=== PATIENT | male | born 1960 | race African-American/Black ===

== ENCOUNTER 2017-02-12 15:05 | Inpatient (IN) | payer OTHER ==
--- NOTE | 2017-02-12 16:55 | HP ---
CIWA Score - CIWA Score Nausea/Vomitin Muscle Tremors: 3 Anxiety: 3 Agitation: 3 Paroxysmal Sweats: 2 Orientation: 0-Oriented Tacttile Disturbances: 2-Mild Itch/Numbness/Burn Auditory Disturbances: 2-Mild Harshness/Frighten Visual Disturbances: 2-Mild Sensitivity Headache: 2-Mild CIWA-Ar Total Score: 22 Admission ROS BHS - HPI Chief Complaint: I NEED HELP TO STOP DRINKING ALCOHOL,COCAINE,WITHDRAWAL SYMPTOM,LAST DETOX 09/11 TO 05/14/16 SYNCOPE ALCOHOL RELATED BILATERAL GLAUCOMA BOTH EYES S/P RIGHT EYE CATARACT SURGERY ARTHRITIS AMBULATION WITH CANE SURGERY FOR FX OF CERVICAL SPINE AT [facility] IN 05/12? BPH LONGEST SOBRIETY 2 AND A HALF YEARS Allergies/Adverse Reactions: Allergies Allergy/AdvReac Type Severity Reaction Status Date / Time metoclopramide HCl Allergy Severe Swelling Verified 09/11/16 10:34 [From Reglan] Penicillins Allergy Severe Hives Verified 09/11/16 10:32 shellfish derived Allergy Severe Swelling Verified 09/11/16 10:32 History of Present Illness: THIS 56 YEARS OLD WITH ALCOHOL,COCAINE,MARIJUANA DEPENDENCE FOR DETOX MENTIONED Exam Limitations: No Limitations - Ebola screening Have you traveled outside of the country in the last 21 days: No Have you had contact with anyone from an Ebola affected area: No Do you have a fever: No - Review of Systems Constitutional: Chills, Loss of Appetite, Malaise, Night Sweats, Changes in sleep, Unintentional Wgt. Loss EENT: reports: Tearing, Nose Congestion, Other (GLAUCOMA BOTH EYES S/P SURGERY OF CATARACT RIGHT) Respiratory: reports: No Symptoms reported Cardiac: reports: Palpitations GI: reports: Nausea, Poor Appetite, Vomiting, Abdominal cramping : reports: No Symptoms Reported Musculoskeletal: reports: Back Pain, Muscle Pain, Neck Pain, Other (ARTRITIS AMBULATION WITH CANE) Integumentary: reports: Dryness Neuro: reports: Headache, Tremors Endocrine: reports: No Symptoms Reported Hematology: reports: No Symptoms Reported Psychiatric: reports: Judgement Intact, Mood/Affect Appropiate, Orientated x3, Depressed Patient History - Patient Medical History Hx Anemia: No Hx Asthma: No Hx Chronic Obstructive Pulmonary Disease (COPD): No Hx Cancer: No Hx Cardiac Disorders: No Hx Congestive Heart Failure: No Hx Hypertension: No Hx Hypercholesterolemia: No Hx Pacemaker: No HX Cerebrovascular Accident: No Hx Seizures: Yes (LAST 01/13) Hx Dementia: No Hx Diabetes: No Hx Gastrointestinal Disorders: Yes (PUD) Hx Liver Disease: No Hx Genitourinary Disorders: No Hx Sexually Transmitted Disorders: No Hx Renal Disease (ESRD): No Hx Thyroid Disease: No Hx Human Immunodeficiency Virus (HIV): No (LAST 2016 NEGATIVE) Hx Hepatitis C: No Hx Depression: Yes (INSOMNIA) Hx Suicide Attempt: No Hx Bipolar Disorder: No Hx Schizophrenia: No Other Medical History: NO SUICIDAL,NO HOMICIDAL - Patient Surgical History Past Surgical History: No Hx Neurologic Surgery: Yes (C-SPINE FUSION) Hx Cataract Extraction: No Hx Cardiac Surgery: No Hx Lung Surgery: No Hx Breast Surgery: No Hx Breast Biopsy: No Hx Abdominal Surgery: No Hx Appendectomy: No Hx Cholecystectomy: No Hx Genitourinary Surgery: No Hx Section: No Hx Orthopedic Surgery: Yes (Sx bilateral wrist and R ankle sx; ON THE NECK) Anesthesia Reaction: No - PPD History Documented Results: Negative w/proof Date: 09/14/16 Results: 0mm PPD to be Administered?: No - Smoking Cessation Smoking history: Current every day smoker Have you smoked in the past 12 months: Yes Aproximately how many cigarettes per day: 40 Cigars Per Day: 0 Hx Chewing Tobacco Use: No Initiated information on smoking cessation: Yes 'Breaking Loose' booklet given: 02/12/17 - Substance & Tx. History Hx Alcohol Use: Yes Hx Substance Use: Yes Substance Use Type: Alcohol, Cocaine, Marijuana Hx Substance Use Treatment: Yes (LAST 09/11/16 TO 09/13/16) - Substances Abused Alcohol Route: Oral Frequency: Daily Amount used: 1/5TH OF VODKA Age of first use: 14 Date of Last Use: 02/12/17 Cocaine Route: Inhalation Frequency: 1-3 times last 30 days Amount used: 20$ Age of first use: 23 Date of Last Use: 01/25/17 Marijuana/Hashish Route: Smoking Frequency: 3-6 times per week Amount used: 10$ Age of first use: 23 Date of Last Use: 02/01/17 Family Disease History - Family Disease History Family Disease History: Other: Father (alcohol,), Mother (alcohol), Brother (alcohol), Sister (alcohol) Admission Physical Exam BHS - Vital Signs Vital Signs: Vital Signs Temperature 98.2 F 02/12/17 17:10 Pulse Rate 90 02/12/17 17:10 Respiratory Rate 20 02/12/17 17:10 Blood Pressure 108/66 02/12/17 17:10 O2 Sat by Pulse Oximetry (%) - Physical General Appearance: Yes: Moderate Distress (GLAUCOMA BOTH EYES S/P CATARACT SURGERY RIGHT), Tremorous, Irritable, Sweating, Anxious HEENTM: Yes: Normocephalic, Pharynx Normal, Nasal Congestion, Other (S/P) Respiratory: Yes: No Respiratory Distress, Wheezing Neck: Yes: Supple, Trachea in good position, Other (SCAR IN POSTERIOR OF NECK S/ P SURGERY) Breast: Yes: Within Normal Limits Cardiology: Yes: Within Normal Limits, Regular Rhythm, Regular Rate, S1, S2 Abdominal: Yes: Within Normal Limits, Normal Bowel Sounds, Non Tender, Flat, Soft Genitourinary: Yes: Hesitency, Other (BPH) Back: Yes: Muscle Spasm Musculoskeletal: Yes: full range of Motion, Back pain, Muscle Pain Extremities: Yes: Normal Range of Motion, Tremors, Other (ARTHRITIS AMBULATION WITH CANE) 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: Yes: service porter II-XII NML intact, Fully Oriented, Alert, Motor Strength 5/5 Integumentary: Yes: Dry Lymphatic: Yes: Within Normal Limits - Diagnostic (1) Alcohol dependence with uncomplicated withdrawal Current Visit: No Status: Chronic (2) Arthritis Current Visit: No Status: Chronic (3) Cannabis dependence Current Visit: No Status: Chronic (4) Chronic low back pain Current Visit: No Status: Chronic Qualifiers: Back pain laterality: unspecified (5) Chronic neck pain Current Visit: No Status: Chronic (6) Cocaine dependence Current Visit: No Status: Chronic Qualifiers: Substance use status: uncomplicated Qualified Code(s): F14.20 - Cocaine dependence, uncomplicated (7) Gastroesophageal reflux disease Current Visit: No Status: Chronic (8) Glaucoma of both eyes Current Visit: No Status: Chronic Qualifiers: Glaucoma type: primary angle-closure Primary angle closure glaucoma type: chronic Glaucoma stage: mild stage Qualified Code(s): H40.2231 - Chronic angle-closure glaucoma, bilateral, mild stage (9) Nicotine dependence Current Visit: No Status: Chronic Qualifiers: Nicotine product type: cigarettes Substance use status: uncomplicated Qualified Code(s): F17.210 - Nicotine dependence, cigarettes, uncomplicated (10) Paranoid schizophrenia Current Visit: No Status: Chronic (11) Use of cane as ambulatory aid Current Visit: No Status: Chronic (12) arthritis of left knee Current Visit: No Status: Chronic (13) BPH (benign prostatic hypertrophy) Current Visit: Yes Status: Acute (14) Status post cataract surgery Current Visit: Yes Status: Acute Cleared for Admission BHS - Detox or Rehab [facility] Level of Care: Medically Managed Detox Regimen/Protocol: Librium BHS Breath Alcohol Content Breath Alcohol Content: 0.028 Vital Signs - Vital Signs Vital Signs Refused: No Temperature: 98.2 F Temperature Source: Oral Pulse Rate: 90 Respiratory Rate: 20 Blood Pressure: 108/66 BP Location: Left Arm - Height Height: 5 ft 8 in - Weight Weight: 164 lb Body Mass Index (BMI): 24.9 Urine Drug Screen - Test Device Lot Number: [id number] Expiration Date: 10/26/18 - Control Is Test Valid: Yes - Results Drug Screen Negative: No Urine Drug Screen Results: BZO-Benzodiazepines
[2017-02-12 17:14] VITALS: BMI 24.9
[2017-02-12] MEDS ORDERED: IBUPROFEN 400 MG TABLET (FP) PO PRN (17:55)
[2017-02-12] MEDS ORDERED: chlordiazePOXIDE HCL 25 MG CAPSULE PO PRN (17:55)
[2017-02-12] MEDS ORDERED: MENTHOL/PHENOL 1 EACH UD MM PRN (17:55)
[2017-02-12] MEDS ORDERED: MAGNESIUM CITRATE 300 ML BOTTLE PO PRN (17:55)
[2017-02-12] MEDS ORDERED: MAGNESIUM HYDROX 2400MG/30ML ORAL SUSPENSION 30 ML CUP PO PRN (17:55)
[2017-02-12] MEDS ORDERED: diphenhydrAMINE HCL 50 MG CAPSULE PO PRN (17:55)
[2017-02-12] MEDS ORDERED: guaiFENesin/D-METHORPHAN HB 10 ML UNIT-DOSE CUPS PO PRN (17:55)
[2017-02-12] MEDS ORDERED: P-EPHED 60MG/TRIPROLIDI 2.5MG TABLET PO PRN (17:55)
[2017-02-12] MEDS ORDERED: LOPERAMIDE HCL 2 MG CAPSULE PO PRN (17:55)
[2017-02-12] MEDS ORDERED: MAG HYDROX/AL HYDROX/SIMETH 30 ML UNIT-DOSE CUP PO PRN (17:55)
[2017-02-12] MEDS ORDERED: NICOTINE POLACRILEX 2 MG GUM BC PRN (17:55)
[2017-02-12] MEDS ORDERED: hydrOXYzine PAMOATE 50 MG CAPSULE (FP) PO PRN (17:55)
[2017-02-12] MEDS ORDERED: ALBUTEROL SO4 6.7 GM HFA INHALER IH PRN (18:07)
[2017-02-12] MEDS ORDERED: chlordiazePOXIDE HCL 25 MG CAPSULE PO ONE (18:15)
[2017-02-12] MEDS: NICOTINE 21 MG/24 HOURS TOPICAL PATCH TD SCH (19:32)
[2017-02-12] MEDS: diphenhydrAMINE HCL 25 MG CAPSULE (FP) PO PRN (19:42)
[2017-02-12] MEDS: THIAMINE HCL 100 MG TABLET (FP) PO SCH (22:37)
[2017-02-12] MEDS: chlordiazePOXIDE HCL 25 MG CAPSULE PO SCH (22:38)
[2017-02-12] MEDS: RANITIDINE HCL 150 MG TABLET (FP) PO SCH (22:38)
[2017-02-12] MEDS: TIMOLOL 0.5% OPHTHALMIC SOL 5 ML BOTTLE OU SCH (22:40)
[2017-02-12] MEDS: LATANOPROST 0.005% OPHTH SOLN 2.5ML BOTTLE OU SCH (22:40)
[2017-02-13] MEDS: chlordiazePOXIDE HCL 25 MG CAPSULE PO SCH ×4 (06:05→22:40)
--- NOTE | 2017-02-13 10:30 | PN ---
[facility] CIWA - CIWA Score Nausea/Vomitin-No Nausea/No Vomiting Muscle Tremors: 4-Moderate,w/Arms Extend Anxiety: 4-Mod. Anxious/Guarded Agitation: 4-Moderately Restless Paroxysmal Sweats: 3 Orientation: 0-Oriented Tacttile Disturbances: 1-Very Mild Itch/Numbness Auditory Disturbances: 0-None Visual Disturbances: 0-None Headache: 0-None Present CIWA-Ar Total Score: 16 BHS Progress Note (SOAP) Subjective: Anxiety,tremors,sweating,interrupted sleep,restless. Objective: 02/13/17 10:29 Vital Signs - 8 hr 02/13/17 02/13/17 02/13/17 03:30 06:30 09:59 Temperature 98.4 F 96 F L Pulse Rate 88 81 Respiratory 18 18 20 Rate Blood Pressure 131/88 104/66 Laboratory Last Values WBC Cancelled 02/13/17 07:40 Corrected WBC (auto) Cancelled 02/13/17 07:40 RBC Cancelled 02/13/17 07:40 Hgb Cancelled 02/13/17 07:40 Hct Cancelled 02/13/17 07:40 MCV Cancelled 02/13/17 07:40 MCHC Cancelled 02/13/17 07:40 RDW Cancelled 02/13/17 07:40 Plt Count Cancelled 02/13/17 07:40 MPV Cancelled 02/13/17 07:40 Differential Comment Cancelled 02/13/17 07:40 Platelet Estimate Cancelled 02/13/17 07:40 Platelet Comment Cancelled 02/13/17 07:40 Platelet Comment Cancelled 02/13/17 07:40 RBC Morphology Cancelled 02/13/17 07:40 Assessment: 02/13/17 10:29 Withdrawal sx. Plan: Continue detox
[2017-02-13 10:43] LABS: ALBUMIN 3.4 g/dl (3.4-5.0); ALK PHOS 104 U/L (45-117); ANION GAP 13 (8-16); BILIRUBIN,TOTAL 0.5 mg/dL (0.2-1.0); CALCIUM 8.6 mg/dL (8.5-10.1); CO2 28 mmol/L (21-32); CREATININE 0.9 mg/dL (0.7-1.3); GLUCOSE,RANDOM 99 mg/dL (74-106); SGPT/ALT 16 U/L (12-78); TOT PROT 6.8 g/dl (6.4-8.2)
[2017-02-13 10:46] LABS: SGOT/AST 24 U/L (15-37)
[2017-02-13] MEDS: TIMOLOL 0.5% OPHTHALMIC SOL 5 ML BOTTLE OU SCH ×2 (11:02→21:23)
[2017-02-13] MEDS: NICOTINE 21 MG/24 HOURS TOPICAL PATCH TD SCH (11:03)
[2017-02-13] MEDS: PRENATAL VITAMINS W/ FOLIC ACID TABLET (FP) PO SCH (11:03)
[2017-02-13] MEDS: RANITIDINE HCL 150 MG TABLET (FP) PO SCH ×2 (11:04→22:40)
[2017-02-13] MEDS: diphenhydrAMINE HCL 25 MG CAPSULE (FP) PO PRN (11:09)
[2017-02-13] MEDS: VITAMINS A AND D TOPICAL OINTMENT 60 GM TUBE TP SCH ×4 (14:44→22:41)
[2017-02-13] MEDS: POTASSIUM CHLORIDE TABS 20 MEQ TABLET.ER (FP) PO SCH ×2 (14:52→22:40)
--- NOTE | 2017-02-13 15:37 | CONSULT ---
[facility] Psychiatric Consult - Data Date of interview: 02/13/17 Admission source: [facility] Identifying data: Readmission to [facility] for this 56 y/o AA male seeking detox treatment for alcohol,cocaine,benzodiazepine and marijuane dependence.Patient is single,a father of two,homeless,disabled and supported on SSI benefits. Substance Abuse History: - Smoking Cessation. Smoking history: Current every day smoker. Have you smoked in the past 12 months: Yes. Aproximately how many cigarettes per day: 40. Cigars Per Day: 0. Hx Chewing Tobacco Use: No. Initiated information on smoking cessation: Yes. 'Breaking Loose' booklet given : 02/12/17. - Substance & Tx. History. Hx Alcohol Use: Yes. Hx Substance Use : Yes. Substance Use Type: Alcohol, Cocaine, Marijuana. Hx Substance Use Treatment: Yes (LAST 09/11/16 TO 09/13/16). - Substances Abused. Alcohol. Route: Oral. Frequency: Daily. Amount used: 1/5TH OF VODKA. Age of first use : 14. Date of Last Use: 02/12/17. Cocaine. Route: Inhalation. Frequency: 1-3 times last 30 days. Amount used: 20$. Age of first use: 23. Date of Last Use: 01/25/17. Marijuana/Hashish. Route: Smoking. Frequency: 3-6 times per week. Amount used: 10$. Age of first use: 23. Date of Last Use: . Confirmed by the patient. Medical History: Constellation of medical issues : glaucoma,cataracts (bilateral ),withdrawal seizures,peptic ulcer disease,tumor of left wrist,cervical fusion ( consequence of injuries sustained in a fall while riding an escalator),BPH ( benign prostatic hyperplasia),past history of orthosurgery for fracture of right ankle (hardware in situ) and surgery for laceration of right wrist (glass) . Psychiatric History: History of psychiatric hospitalizations at various facilities.Known to [facility].Diagnosed with MDD ( self-report).Patient states that he used to be on zoloft and haldol." I don't want to take these things again.All I want is my trazodone and benadryl at night." Mr Mcrae informs that he does not have an OPD provider." I used to go to a place to see a psychiatrist but it is so long ago that I don't remember much about anything." With the exception of trazodone,the patient declines to consider any other psychotropic medications.No reported history of suicide attempts. Physical/Sexual Abuse/Trauma History: Patient denies. Additional Comment: Urine Drug Screen Results: BZO-Benzodiazepines.Noted. Mental Status Exam - Mental Status Exam Alert and Oriented to: Time, Place, Person Cognitive Function: Grossly Intact Patient Appearance: Unkempt (appearing older than his stated age), Disheveled Mood: Nervous, Apprehensive Affect: Blunted Patient Behavior: Fatigued, Cooperative Speech Pattern: Clear Voice Loudness: Normal Thought Process: Goal Oriented Thought Disorder: Not Present Hallucinations: Denies Suicidal Ideation: Denies Homicidal Ideation: Denies Insight/Judgement: Poor Sleep: Poorly, Difficulty falling asleep Appetite: Good Muscle strength/Tone: Normal Gait/Station: Other (unsteady,slow gait due to orthopedic issues) Psychiatric Findings - Problem List ([place] 1, 2,3) (1) Alcohol dependence with uncomplicated withdrawal Current Visit: Yes Status: Acute (2) Cannabis dependence Current Visit: Yes Status: Acute (3) Cocaine dependence Current Visit: Yes Status: Acute Qualifiers: Substance use status: uncomplicated Qualified Code(s): F14.20 - Cocaine dependence, uncomplicated (4) Nicotine dependence Current Visit: Yes Status: Acute Qualifiers: Nicotine product type: cigarettes Substance use status: uncomplicated Qualified Code(s): F17.210 - Nicotine dependence, cigarettes, uncomplicated (5) Drug-induced mood disorder Current Visit: Yes Status: Acute (6) Schizophrenia, undifferentiated Current Visit: Yes Status: Chronic Comment: Historical but the patient contests this diagnosis. (7) BPH (benign prostatic hypertrophy) Current Visit: Yes Status: Chronic (8) Arthritis Current Visit: Yes Status: Chronic (9) Chronic low back pain Current Visit: Yes Status: Chronic Qualifiers: Back pain laterality: unspecified (10) Chronic neck pain Current Visit: Yes Status: Chronic (11) Gastroesophageal reflux disease Current Visit: Yes Status: Chronic (12) Glaucoma of both eyes Current Visit: Yes Status: Chronic Qualifiers: Glaucoma type: primary angle-closure Primary angle closure glaucoma type: chronic Glaucoma stage: mild stage Qualified Code(s): H40.2231 - Chronic angle-closure glaucoma, bilateral, mild stage (13) arthritis of left knee Current Visit: Yes Status: Chronic (14) Insomnia Current Visit: Yes Status: Chronic Qualifiers: Insomnia type: unspecified Qualified Code(s): G47.00 - Insomnia, unspecified (15) Use of cane as ambulatory aid Current Visit: Yes Status: Chronic - Initial Treatment Plan Initial Treatment Plan: Psychoeducation.Detoxification in progress.Trazodone 100 mg po hs.Patient is made aware of the risk of priapism.Instructed to stop that medication/seek immediate medical assistance if erectile abnormalities ( prolonged/painful erection).He is advised against his decision to abstain from antipsychotic medications.Offered alternate drugs such as atypical agents/mood stabilizers.He refuses.Informed of potential risks of non-adherence/sub-optimal treatment which includes relapses,rehospitalizations,social/functional downdrift and increased morbidity.Observation.
[2017-02-13 16:56] LABS: URINE APPEARANCE CLEAR; URINE BILIRUBIN NEGATIVE (NEGATIVE); URINE BLOOD NEGATIVE (NEGATIVE); URINE COLOR YELLOW; URINE GLUCOSE (UA) NEGATIVE (NEGATIVE); URINE KETONE NEGATIVE (NEGATIVE); URINE NITRITE NEGATIVE (NEGATIVE); URINE PROTEIN NEGATIVE (NEGATIVE); URINE UROBILINOGEN 2.0 E.U/dl E.U./dl (0.2-1.0)
[2017-02-13 16:57] LABS: URINE LEUK ESTERASE TRACE (NEGATIVE)
[2017-02-13 16:58] LABS: URINE RBC 1 /hpf (0-3); URINE WBC 10 /hpf (3-5)
--- NOTE | 2017-02-13 17:51 | PN ---
BHS Progress Note Note: received nurse informed bp 94/60 hold librium 50 mg x 1 increase oral fluid continue detox
[2017-02-13] MEDS: LATANOPROST 0.005% OPHTH SOLN 2.5ML BOTTLE OU SCH (22:40)
[2017-02-13] MEDS: THIAMINE HCL 100 MG TABLET (FP) PO SCH (22:40)
[2017-02-13] MEDS: traZODone HCL 100 MG TABLET (FP) PO SCH (22:40)
[2017-02-14] MEDS: chlordiazePOXIDE HCL 25 MG CAPSULE PO SCH ×3 (05:51→17:46)
[2017-02-14] MEDS: ACETAMINOPHEN 325 MG TABLET (FP) PO PRN (05:53)
[2017-02-14] MEDS: diphenhydrAMINE HCL 25 MG CAPSULE (FP) PO PRN ×2 (07:40→17:47)
[2017-02-14] MEDS: NICOTINE 21 MG/24 HOURS TOPICAL PATCH TD SCH (10:39)
[2017-02-14] MEDS: TIMOLOL 0.5% OPHTHALMIC SOL 5 ML BOTTLE OU SCH ×2 (10:39→22:55)
[2017-02-14] MEDS: PRENATAL VITAMINS W/ FOLIC ACID TABLET (FP) PO SCH (10:39)
[2017-02-14] MEDS: VITAMINS A AND D TOPICAL OINTMENT 60 GM TUBE TP SCH ×4 (10:39→22:54)
[2017-02-14] MEDS: RANITIDINE HCL 150 MG TABLET (FP) PO SCH ×2 (10:39→22:55)
[2017-02-14] MEDS: POTASSIUM CHLORIDE TABS 20 MEQ TABLET.ER (FP) PO SCH ×2 (10:39→22:55)
--- NOTE | 2017-02-14 11:36 | PN ---
[facility] CIWA - CIWA Score Nausea/Vomitin-No Nausea/No Vomiting Muscle Tremors: 4-Moderate,w/Arms Extend Anxiety: 4-Mod. Anxious/Guarded Agitation: 4-Moderately Restless Paroxysmal Sweats: 1-Minimal Palms Moist Orientation: 0-Oriented Tacttile Disturbances: 3-Moderate Itch/Numb/Burn Auditory Disturbances: 0-None Visual Disturbances: 0-None Headache: 0-None Present CIWA-Ar Total Score: 16 BHS Progress Note (SOAP) Subjective: ANXIETY,SWEATS,FATIGUE. Objective: 02/14/17 11:34 Vital Signs Temperature 95.6 F L 02/14/17 10:10 Pulse Rate 78 02/14/17 10:10 Respiratory Rate 18 02/14/17 10:10 Blood Pressure 110/74 02/14/17 10:10 O2 Sat by Pulse Oximetry (%) Laboratory Last Values WBC Cancelled 02/13/17 07:40 Corrected WBC (auto) Cancelled 02/13/17 07:40 RBC Cancelled 02/13/17 07:40 Hgb Cancelled 02/13/17 07:40 Hct Cancelled 02/13/17 07:40 MCV Cancelled 02/13/17 07:40 MCHC Cancelled 02/13/17 07:40 RDW Cancelled 02/13/17 07:40 Plt Count Cancelled 02/13/17 07:40 MPV Cancelled 02/13/17 07:40 Differential Comment Cancelled 02/13/17 07:40 Platelet Estimate Cancelled 02/13/17 07:40 Platelet Comment Cancelled 02/13/17 07:40 Platelet Comment Cancelled 02/13/17 07:40 RBC Morphology Cancelled 02/13/17 07:40 Sodium 139 mmol/L (136-145) 02/13/17 07:40 Potassium 3.3 mmol/L (3.5-5.1) L D 02/13/17 07:40 Chloride 98 mmol/L (98-107) 02/13/17 07:40 Carbon Dioxide 28 mmol/L (21-32) 02/13/17 07:40 Anion Gap 13 (8-16) 02/13/17 07:40 BUN 16 mg/dL (7-18) D 02/13/17 07:40 Creatinine 0.9 mg/dL (0.7-1.3) 02/13/17 07:40 Creat Clearance w eGFR > 60 (>60) 02/13/17 07:40 Random Glucose 99 mg/dL (74-106) 02/13/17 07:40 Calcium 8.6 mg/dL (8.5-10.1) 02/13/17 07:40 Total Bilirubin 0.5 mg/dL (0.2-1.0) 02/13/17 07:40 AST 24 U/L (15-37) 02/13/17 07:40 ALT 16 U/L (12-78) D 02/13/17 07:40 Alkaline Phosphatase 104 U/L (45-117) D 02/13/17 07:40 Total Protein 6.8 g/dl (6.4-8.2) 02/13/17 07:40 Albumin 3.4 g/dl (3.4-5.0) 02/13/17 07:40 Urine Color Yellow 02/13/17 16:30 Urine Appearance Clear 02/13/17 16:30 Urine pH 6.0 (5.0-8.0) 02/13/17 16:30 Ur Specific [place] 1.013 (1.001-1.035) 02/13/17 16:30 Urine Protein Negative (NEGATIVE) 02/13/17 16:30 Urine Glucose (UA) Negative (NEGATIVE) 02/13/17 16:30 Urine Ketones Negative (NEGATIVE) 02/13/17 16:30 Urine Blood Negative (NEGATIVE) 02/13/17 16:30 Urine Nitrite Negative (NEGATIVE) 02/13/17 16:30 Urine Bilirubin Negative (NEGATIVE) 02/13/17 16:30 Urine Urobilinogen 2.0 e.u/dl E.U./dl (0.2-1.0) 02/13/17 16:30 Ur Leukocyte Esterase Trace (NEGATIVE) H 02/13/17 16:30 Urine RBC 1 /hpf (0-3) 02/13/17 16:30 Urine WBC 10 /hpf (3-5) 02/13/17 16:30 Ur Epithelial Cells Rare /hpf (FEW) 02/13/17 16:30 RPR Titer Nonreactive (NONREACTIVE) 02/13/17 07:00 Assessment: 02/14/17 11:34 WITHDRAWAL SX Plan: CONTINUE DETOX REPEAT UA TODAY CONTINUE KDUR DIRECTED.
[2017-02-14 13:16] LABS: HIV 1 & 2 AB NEGATIVE; HIV 1 AGp24 NEGATIVE
--- NOTE | 2017-02-14 16:57 | EKG ---
Test Reason : Blood Pressure : / mmHG Vent. Rate : 076 BPM Atrial Rate : 076 BPM P-R Int : 128 ms QRS Dur : 098 ms QT Int : 406 ms P-R-T Axes : 013 040 069 degrees QTc Int : 456 ms NORMAL SINUS RHYTHM NONSPECIFIC T WAVE ABNORMALITY ABNORMAL ECG NO PREVIOUS ECGS AVAILABLE Confirmed by RAYSA CORNELL MD ([id number]) on 02/14/2017 4:57:09 PM Referred By: Confirmed By:RAYSA CORNELL MD
[2017-02-14] MEDS: NAPROXEN 500 MG TABLET (FP) PO PRN (22:53)
[2017-02-14] MEDS: THIAMINE HCL 100 MG TABLET (FP) PO SCH (22:54)
[2017-02-14] MEDS: chlordiazePOXIDE 5 MG CAPSULE PO SCH (22:55)
[2017-02-14] MEDS: traZODone HCL 100 MG TABLET (FP) PO SCH (22:55)
[2017-02-14] MEDS: LATANOPROST 0.005% OPHTH SOLN 2.5ML BOTTLE OU SCH (22:56)
[2017-02-15] MEDS: chlordiazePOXIDE 5 MG CAPSULE PO SCH ×3 (06:12→18:04)
[2017-02-15] MEDS ORDERED: ALBUTEROL SO4 2.5/IPRATROPIUM 0.5 INH SOL 3 ML VIAL.NEB. NEB PRN (09:28)
[2017-02-15 10:14] LABS: BASOPHIL 0.9 % (0-2.0); EOSINOPHIL 2.1 % (0-4.5); MCH 27.4 pg (25.7-33.7); MEAN CELL VOLUME 85.6 fl (80-96); NEUTROPHILS 62.3 % (42.8-82.8); PLATELET COUNT 175 K/MM3 (134-434); RDW 20.4 % (11.9-15.9); WHITE BLOOD COUNT 4.4 K/mm3 (4.0-10.0)
[2017-02-15] MEDS: RANITIDINE HCL 150 MG TABLET (FP) PO SCH ×2 (10:40→22:50)
[2017-02-15] MEDS: NICOTINE 21 MG/24 HOURS TOPICAL PATCH TD SCH (10:40)
[2017-02-15] MEDS: ALBUTEROL SO4 2.5/IPRATROPIUM 0.5 INH SOL 3 ML VIAL.NEB. NEB SCH ×4 (10:40→23:52)
[2017-02-15] MEDS: BUDESONIDE/FORMETEROL FUMARATE 80/4.5 mcg INHALER IH SCH ×2 (10:40→22:48)
[2017-02-15] MEDS: POTASSIUM CHLORIDE TABS 20 MEQ TABLET.ER (FP) PO SCH ×2 (10:40→22:49)
[2017-02-15] MEDS: PRENATAL VITAMINS W/ FOLIC ACID TABLET (FP) PO SCH (10:40)
[2017-02-15] MEDS: TIMOLOL 0.5% OPHTHALMIC SOL 5 ML BOTTLE OU SCH ×2 (10:41→18:00)
[2017-02-15] MEDS: VITAMINS A AND D TOPICAL OINTMENT 60 GM TUBE TP SCH ×4 (10:41→22:49)
[2017-02-15] MEDS: diphenhydrAMINE HCL 25 MG CAPSULE (FP) PO PRN ×2 (10:42→18:14)
--- NOTE | 2017-02-15 11:08 | PN ---
S Progress Note (SOAP) Subjective: ANXIETY,IRRITABILITY,CHILLS, SOB,WHEEZE, COUGHING --MOIST/HEAVY SOUNDING AND NASAL CONGESTION. DENIES HX ASTHMA OR COPD. Objective: 02/15/17 11:05 Vital Signs 02/15/17 02/15/17 02/15/17 03:30 06:37 10:25 Temperature 96.5 F L 96.6 F L Pulse Rate 75 76 Respiratory 18 16 18 Rate Blood Pressure 100/61 107/73 Laboratory Last Values WBC 4.4 K/mm3 (4.0-10.0) 02/15/17 07:14 Corrected WBC (auto) Cancelled 02/13/17 07:40 RBC 3.82 M/mm3 (4.00-5.60) L 02/15/17 07:14 Hgb 10.5 GM/dL (11.7-16.9) L D 02/15/17 07:14 Hct 32.7 % (35.4-49) L 02/15/17 07:14 MCV 85.6 fl (80-96) 02/15/17 07:14 MCHC 32.0 g/dl (32.0-35.9) 02/15/17 07:14 RDW 20.4 % (11.9-15.9) H 02/15/17 07:14 Plt Count 175 K/MM3 (134-434) 02/15/17 07:14 MPV 9.0 fl (7.5-11.1) 02/15/17 07:14 Neutrophils % 62.3 % (42.8-82.8) 02/15/17 07:14 Lymphocytes % 20.0 % (8-40) D 02/15/17 07:14 Monocytes % 14.7 % (3.8-10.2) H D 02/15/17 07:14 Eosinophils % 2.1 % (0-4.5) D 02/15/17 07:14 Basophils % 0.9 % (0-2.0) 02/15/17 07:14 Differential Comment Cancelled 02/13/17 07:40 Platelet Estimate Cancelled 02/13/17 07:40 Platelet Comment Cancelled 02/13/17 07:40 Platelet Comment Cancelled 02/13/17 07:40 RBC Morphology Cancelled 02/13/17 07:40 Sodium 139 mmol/L (136-145) 02/13/17 07:40 Potassium 3.3 mmol/L (3.5-5.1) L D 02/13/17 07:40 Chloride 98 mmol/L (98-107) 02/13/17 07:40 Carbon Dioxide 28 mmol/L (21-32) 02/13/17 07:40 Anion Gap 13 (8-16) 02/13/17 07:40 BUN 16 mg/dL (7-18) D 02/13/17 07:40 Creatinine 0.9 mg/dL (0.7-1.3) 02/13/17 07:40 Creat Clearance w eGFR > 60 (>60) 02/13/17 07:40 Random Glucose 99 mg/dL (74-106) 02/13/17 07:40 Calcium 8.6 mg/dL (8.5-10.1) 02/13/17 07:40 Total Bilirubin 0.5 mg/dL (0.2-1.0) 02/13/17 07:40 AST 24 U/L (15-37) 02/13/17 07:40 ALT 16 U/L (12-78) D 02/13/17 07:40 Alkaline Phosphatase 104 U/L (45-117) D 02/13/17 07:40 Total Protein 6.8 g/dl (6.4-8.2) 02/13/17 07:40 Albumin 3.4 g/dl (3.4-5.0) 02/13/17 07:40 Urine Color Yellow 02/13/17 16:30 Urine Appearance Clear 02/13/17 16:30 Urine pH 6.0 (5.0-8.0) 02/13/17 16:30 Ur Specific [place] 1.013 (1.001-1.035) 02/13/17 16:30 Urine Protein Negative (NEGATIVE) 02/13/17 16:30 Urine Glucose (UA) Negative (NEGATIVE) 02/13/17 16:30 Urine Ketones Negative (NEGATIVE) 02/13/17 16:30 Urine Blood Negative (NEGATIVE) 02/13/17 16:30 Urine Nitrite Negative (NEGATIVE) 02/13/17 16:30 Urine Bilirubin Negative (NEGATIVE) 02/13/17 16:30 Urine Urobilinogen 2.0 e.u/dl E.U./dl (0.2-1.0) 02/13/17 16:30 Ur Leukocyte Esterase Trace (NEGATIVE) H 02/13/17 16:30 Urine RBC 1 /hpf (0-3) 02/13/17 16:30 Urine WBC 10 /hpf (3-5) 02/13/17 16:30 Ur Epithelial Cells Rare /hpf (FEW) 02/13/17 16:30 RPR Titer Nonreactive (NONREACTIVE) 02/13/17 07:00 HIV 1&2 Antibody Screen Negative 02/14/17 07:10 HIV P24 Antigen Negative 02/14/17 07:10 REPEAT UA RESULT PENDING LUNGS:BILATERAL MODERATE RHONCHI WITH SLIGHT WHEEZE. Assessment: 02/15/17 11:06 WITHDRAWAL SX ACUTE BRONCHITIS Plan: CONTINUE DETOX RT WITH DUONEB NEBULIZER AND SYMBICORT DIRECTED. AZITHROMYCIN SWETHA
[2017-02-15] MEDS ORDERED: AZITHROMYCIN 1 GM PACKET PO ONE (12:00)
[2017-02-15] MEDS: SODIUM CHLORIDE NASAL SPRAY 44 ML BOTTLE NS SCH ×2 (13:39→22:51)
[2017-02-15 14:57] LABS: URINE APPEARANCE CLEAR; URINE BILIRUBIN NEGATIVE (NEGATIVE); URINE BLOOD NEGATIVE (NEGATIVE); URINE COLOR DKYELLOW; URINE GLUCOSE (UA) NEGATIVE (NEGATIVE); URINE KETONE NEGATIVE (NEGATIVE); URINE LEUK ESTERASE TRACE (NEGATIVE); URINE NITRITE NEGATIVE (NEGATIVE); URINE PROTEIN 1+ (NEGATIVE); URINE UROBILINOGEN 4.0 E.U/dl E.U./dl (0.2-1.0)
[2017-02-15 15:53] LABS: URINE MUCUS RARE; URINE RBC 1 /hpf (0-3); URINE WBC 9 /hpf (3-5); WAXY CAST 1 /lpf
[2017-02-15] MEDS: NAPROXEN 500 MG TABLET (FP) PO PRN (18:06)
[2017-02-15] MEDS: ACETAMINOPHEN 325 MG TABLET (FP) PO PRN (22:47)
[2017-02-15] MEDS: chlordiazePOXIDE HCL 10 MG CAPSULE PO SCH (22:49)
[2017-02-15] MEDS: LATANOPROST 0.005% OPHTH SOLN 2.5ML BOTTLE OU SCH (22:50)
[2017-02-15] MEDS: THIAMINE HCL 100 MG TABLET (FP) PO SCH (22:50)
[2017-02-15] MEDS: traZODone HCL 100 MG TABLET (FP) PO SCH (22:53)
[2017-02-16] MEDS: chlordiazePOXIDE HCL 10 MG CAPSULE PO SCH ×2 (06:22→10:48)
[2017-02-16] MEDS: NAPROXEN 500 MG TABLET (FP) PO PRN (06:23)
[2017-02-16] MEDS: diphenhydrAMINE HCL 25 MG CAPSULE (FP) PO PRN (06:24)
[2017-02-16 09:23] VITALS: BP 117/76; PULSE 69; TEMP 96.4
[2017-02-16] MEDS: POTASSIUM CHLORIDE TABS 20 MEQ TABLET.ER (FP) PO SCH (10:48)
[2017-02-16] MEDS: NICOTINE 21 MG/24 HOURS TOPICAL PATCH TD SCH (10:48)
[2017-02-16] MEDS: SODIUM CHLORIDE NASAL SPRAY 44 ML BOTTLE NS SCH (10:48)
[2017-02-16] MEDS: BUDESONIDE/FORMETEROL FUMARATE 80/4.5 mcg INHALER IH SCH (10:48)
[2017-02-16] MEDS: ALBUTEROL SO4 2.5/IPRATROPIUM 0.5 INH SOL 3 ML VIAL.NEB. NEB SCH (10:48)
[2017-02-16] MEDS: PRENATAL VITAMINS W/ FOLIC ACID TABLET (FP) PO SCH (10:48)
[2017-02-16] MEDS: RANITIDINE HCL 150 MG TABLET (FP) PO SCH (10:49)
[2017-02-16] MEDS: VITAMINS A AND D TOPICAL OINTMENT 60 GM TUBE TP SCH (10:49)
[2017-02-16] MEDS: TIMOLOL 0.5% OPHTHALMIC SOL 5 ML BOTTLE OU SCH (10:49)
--- NOTE | 2017-02-16 11:32 | DS ---
[facility] Detox Discharge Summary Admission Date: 02/12/17 Discharge Date: 02/16/17 - History Present History: Alcohol Dependence Additional Comments: DETOX COMPLETED.ALERT O X 3. NAD. LUNGS;CLEAR TO A/P. NO SOB. NO C/O PAIN. VSS PT INSTRUCTED TO F/U WITH [facility] AT [place], [place] FOR MEDICAL MANAGEMENT. PT STATES HE IS HOMELESS AND NO FIXED RESIDENCE("I'M ALL OVER THE PLACE"). Pertinent Past History: ANEMIA BRONCHITIS CHRONIC GLAUCOMA BOTH EYES CATARACT SX GERD ARTHRITIS USE OF CANE BPH SCHIZOPHRENIA - Physical Exam Results Vital Signs: Vital Signs Temperature 96.4 F L 02/16/17 09:23 Pulse Rate 69 02/16/17 09:23 Respiratory Rate 18 02/16/17 09:23 Blood Pressure 117/76 02/16/17 09:23 O2 Sat by Pulse Oximetry (%) Pertinent Admission Physical Exam Findings: WITHDRAWAL SX - Treatment Hospital Course: Detox Protocol Followed, Detoxed Safely, Responded well, Discharged Condition Good - Medication Discharge Medications: Ambulatory Orders Haloperidol [Haldol -] 5 mg PO BID PRN #60 tablet 02/22/16 Trazodone HCl [Desyrel -] 100 mg PO HS #30 tablet 02/22/16 Brimonidine Tartrate [Alphagan 0.2% -] 1 drop OU BID #1 drops 02/24/16 Latanoprost 0.005% Eye Drops [Xalatan 0.005% Eye Drops -] 1 drop OU HS #1 drops 02/24/16 Naproxen [Naprosyn -] 500 mg PO BID #60 tablet 02/24/16 Sodium Chloride Nasal Bridger [[place] Bridger Nasal Bridger -] 2 spray NS TID PRN #1 bottle 02/24/16 Timolol 0.5% [Timoptic 0.5%] 1 drop OU BID #1 drops 02/24/16 Haloperidol [Haldol -] 5 mg PO BID PRN #60 tablet 09/12/16 Trazodone HCl [Desyrel -] 100 mg PO HS #30 tablet 09/12/16 Trazodone HCl 100 mg PO HS #30 tablet 02/13/17 Azithromycin [Zithromax 1gm Jordin -] 250 mg PO DAILY #4 packet 02/16/17 Ferrous Sulfate [Feosol] 325 mg PO TIDCM #90 ud 02/16/17 Ranitidine [Zantac -] 150 mg PO BID #60 tablet 02/16/17 - Diagnosis (1) Alcohol dependence with uncomplicated withdrawal Status: Acute (2) Drug-induced mood disorder Status: Acute (3) Nicotine dependence Status: Acute Qualifiers: Nicotine product type: cigarettes Substance use status: in withdrawal Qualified Code(s): F17.213 - Nicotine dependence, cigarettes, with withdrawal (4) Status post cataract surgery Status: Chronic (5) Arthritis Status: Chronic (6) BPH (benign prostatic hypertrophy) Status: Chronic (7) Gastroesophageal reflux disease Status: Chronic (8) Glaucoma of both eyes Status: Chronic Qualifiers: Glaucoma type: primary angle-closure Primary angle closure glaucoma type: chronic Glaucoma stage: mild stage Qualified Code(s): H40.2231 - Chronic angle-closure glaucoma, bilateral, mild stage (9) Use of cane as ambulatory aid Status: Chronic (10) arthritis of left knee Status: Chronic (11) Cannabis dependence Status: Acute (12) Cocaine dependence Status: Acute Qualifiers: Substance use status: uncomplicated Qualified Code(s): F14.20 - Cocaine dependence, uncomplicated (13) Chronic low back pain Status: Chronic Qualifiers: Back pain laterality: unspecified (14) Schizophrenia, undifferentiated Status: Chronic (15) Bronchitis Status: Acute - AMA Did Patient Leave Against Medical Advice: No
== END 2017-02-16 10:50 | disposition home or self-care (01) | DRG 774 ==
LOC: YASAS 15:05 → Y3N 17:36
PROVIDERS: ADMIT Internal Medicine Addiction Medicine; ATTEND Internal Medicine Addiction Medicine
PROC: HZ2ZZZZ Detoxification Services for Substance Abuse Treatment (ICD-10-PCS; principal; 2017-02-12)
DX: F10.230 Alcohol dependence with withdrawal, uncomplicated (principal); F14.20 Cocaine dependence, uncomplicated; F12.20 Cannabis dependence, uncomplicated; F17.210 Nicotine dependence, cigarettes, uncomplicated; F19.24 Other psychoactive substance dependence with psychoactive substance-induced mood disorder; F20.3 Undifferentiated schizophrenia; K27.9 Peptic ulcer, site unspecified, unspecified as acute or chronic, without hemorrhage or perforation; K21.9 Gastro-esophageal reflux disease without esophagitis; N40.0 Benign prostatic hyperplasia without lower urinary tract symptoms; H40.2231 Chronic angle-closure glaucoma, bilateral, mild stage; G47.00 Insomnia, unspecified; R26.2 Difficulty in walking, not elsewhere classified; M13.862 Other specified arthritis, left knee; M54.5 Low back pain; M54.2 Cervicalgia; G89.29 Other chronic pain; J20.9 Acute bronchitis, unspecified; Z98.41 Cataract extraction status, right eye; Z86.69 Personal history of other diseases of the nervous system and sense organs; Z98.1 Arthrodesis status
CPT/HCPCS: 36415; 80053; 81003; 81015; 85025; 86593; 87389; 93005; 93010; 94640

== ENCOUNTER 2017-07-16 00:37 | Inpatient (IN) | payer OTHER ==
--- NOTE | 2017-07-16 00:54 | HP ---
CIWA Score - CIWA Score Nausea/Vomitin Muscle Tremors: 3 Anxiety: 3 Agitation: 2 Paroxysmal Sweats: 3 Orientation: 0-Oriented Tacttile Disturbances: 2-Mild Itch/Numbness/Burn Auditory Disturbances: 2-Mild Harshness/Frighten Visual Disturbances: 2-Mild Sensitivity Headache: 3-Moderate CIWA-Ar Total Score: 22 Admission ROS [facility] - HPI Chief Complaint: DEPENDENT ON ETOH AND MARIJUANA Allergies/Adverse Reactions: Allergies Allergy/AdvReac Type Severity Reaction Status Date / Time metoclopramide HCl Allergy Severe Swelling Verified 09/11/16 10:34 [From Reglan] Penicillins Allergy Severe Hives Verified 09/11/16 10:32 shellfish derived Allergy Severe Swelling Verified 09/11/16 10:32 History of Present Illness: THE PT. IS REQUESTING ADMISSION TO THE DETOX UNIT AND CAME FOR MEDICAL CLEARANCE Exam Limitations: Clinical Condition - Ebola screening Have you traveled outside of the country in the last 21 days: No Have you had contact with anyone from an Ebola affected area: No Have you been sick,other than usual withdrawal symptoms: No Do you have a fever: No - Review of Systems Constitutional: See HPI, Loss of Appetite, Malaise, Weakness, Unexplained wgt Loss EENT: reports: See HPI Respiratory: reports: See HPI Cardiac: reports: See HPI, Syncope GI: reports: See HPI, Constipated, Nausea, Poor Appetite, Poor Fluid Intake, Indigestion, Abdominal cramping : reports: See HPI Musculoskeletal: reports: See HPI, Back Pain, Joint Pain, Muscle Pain, Muscle Weakness, Neck Pain, Joint Stiffness Integumentary: reports: See HPI, Sweating Neuro: reports: See HPI, Headache, Tremors, Weakness, Unsteady Gait Endocrine: reports: See HPI Hematology: reports: See HPI Psychiatric: reports: Judgement Intact, Orientated x3, Anxious, Depressed Patient History - Patient Medical History Hx Anemia: No Hx Asthma: No Hx Chronic Obstructive Pulmonary Disease (COPD): No Hx Cancer: No Hx Cardiac Disorders: No Hx Congestive Heart Failure: No Hx Hypertension: No Hx Hypercholesterolemia: No Hx Pacemaker: No HX Cerebrovascular Accident: No Hx Seizures: Yes (LAST EPISODE 2 WKS AGO) Hx Dementia: No Hx Diabetes: Yes (DIET CONTROLLED) Hx Gastrointestinal Disorders: Yes (hard time going ot the bathroom sometimes) Hx Liver Disease: No Hx Genitourinary Disorders: No Hx Sexually Transmitted Disorders: No Hx Renal Disease (ESRD): No Hx Thyroid Disease: No Hx Human Immunodeficiency Virus (HIV): No (LAST 2016 NEGATIVE) Hx Hepatitis C: No Hx Depression: Yes (AND ANXIETY) Hx Suicide Attempt: No Hx Bipolar Disorder: No Hx Schizophrenia: No Other Medical History: ARTHRITIS - Patient Surgical History Past Surgical History: No Hx Neurologic Surgery: Yes (C-SPINE FUSION IN 2016) Hx Cataract Extraction: No Hx Cardiac Surgery: No Hx Lung Surgery: No Hx Breast Surgery: No Hx Breast Biopsy: No Hx Abdominal Surgery: No Hx Appendectomy: No Hx Cholecystectomy: No Hx Genitourinary Surgery: No Hx Section: No Hx Orthopedic Surgery: Yes (Sx bilateral wrist and R ankle sx; ON THE NECK) Other Surgical History: HE FELL DOWN 4 DAYS AGO AND INURED THE SCALP - STAPLED Anesthesia Reaction: No - PPD History Date: 09/14/16 Results: 0mm - Smoking Cessation Smoking history: Current every day smoker Have you smoked in the past 12 months: Yes Aproximately how many cigarettes per day: 40 Cigars Per Day: 0 Hx Chewing Tobacco Use: No Initiated information on smoking cessation: Yes 'Breaking Loose' booklet given: 07/16/17 - Substance & Tx. History Hx Alcohol Use: Yes Hx Substance Use: Yes Substance Use Type: Alcohol, Marijuana Hx Substance Use Treatment: Yes - Substances Abused Alcohol Route: Oral Frequency: Daily Amount used: BEER 4 CANS OF BEER/ 1/2 P OF LIQUOR/D Age of first use: 14 Date of Last Use: 07/15/17 Marijuana/Hashish Route: Smoking Frequency: 1-3 times last 30 days Amount used: $5/EACH TIME Age of first use: 15 Date of Last Use: 07/02/17 Family Disease History - Family Disease History Family Disease History: Other: Father (alcohol,), Mother (alcohol), Brother (alcohol), Sister (alcohol) Admission Physical Exam [facility] - Physical General Appearance: Yes: Within Normal Limits, No Apparent Distress, Appropriately Dressed, Alcohol on Breath, Tremorous, Sweating, Anxious HEENTM: Yes: Hearing grossly Normal, Normocephalic, Normal Voice, MARIS[place], Pharynx Normal Respiratory: Yes: Chest Non-Tender, Lungs Clear, Normal Breath Sounds, No Respiratory Distress, No Accessory Muscle Use Neck: Yes: No masses,lesions,Nodules, Supple, Trachea in good position Breast: Yes: Breast Exam Deferred, Axillae without masses Cardiology: Yes: Regular Rhythm, S1, S2, Tachycardia Abdominal: Yes: Normal Bowel Sounds, Non Tender, Flat, Soft Musculoskeletal: Yes: Joint Stiffness, Muscle Pain, Muscle weakness Extremities: Yes: Normal Capillary Refill, Non-Tender, Tremors, Swelling 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: Yes: Alert, Motor Strength 5/5, Normal Response, Depressed Affect Integumentary: Yes: Warm, Moist Lymphatic: Yes: Within Normal Limits - Addiitonal Findings: 4 ANNA NOTED ON THE SCALP IN THE OCCIPITAL AREA - Diagnostic (1) Alcohol dependence with uncomplicated withdrawal Current Visit: Yes Status: Chronic (2) Cannabis dependence Current Visit: Yes Status: Chronic (3) Nicotine dependence Current Visit: Yes Status: Chronic Qualifiers: Nicotine product type: cigarettes Substance use status: in withdrawal Qualified Code(s): F17.213 - Nicotine dependence, cigarettes, with withdrawal (4) Arthritis Current Visit: No Status: Chronic (5) Use of cane as ambulatory aid Current Visit: Yes Status: Chronic (6) Anxiety and depression Current Visit: Yes Status: Chronic Cleared for Admission [facility] - Detox or Rehab [facility] Level of Care: Medically Managed Detox Regimen/Protocol: Librium [facility] Breath Alcohol Content Breath Alcohol Content: 0.251 Vital Signs - Vital Signs Vital Signs Refused: No Temperature: 97.6 F Temperature Source: Oral Pulse Rate: 89 Respiratory Rate: 16 Blood Pressure: 115/82 BP Location: Left Arm Blood Pressure Position: Sitting - Height Height: 5 ft 8 in - Weight Weight: 170 lb Weight Measurement Method: Estimated by Patient Body Mass Index (BMI): 25.8 Urine Drug Screen - Test Device Lot Number: [id number] Expiration Date: 04/26/19 - Control Is Test Valid: Yes - Results Drug Screen Negative: No Urine Drug Screen Results: BZO-Benzodiazepines
[2017-07-16 01:06] VITALS: BMI 25.8
[2017-07-16] MEDS ORDERED: NICOTINE POLACRILEX 4 MG GUM BUC PRN (01:11)
[2017-07-16] MEDS ORDERED: guaiFENesin/D-METHORPHAN HB 10 ML UNIT-DOSE CUPS PO PRN (01:11)
[2017-07-16] MEDS ORDERED: MENTHOL/PHENOL 1 EACH UD MM PRN (01:11)
[2017-07-16] MEDS ORDERED: hydrOXYzine PAMOATE 25 MG CAPSULE (FP) PO PRN (01:11)
[2017-07-16] MEDS ORDERED: MAGNESIUM HYDROX 2400MG/30ML ORAL SUSPENSION 30 ML CUP PO PRN (01:11)
[2017-07-16] MEDS ORDERED: IBUPROFEN 400 MG TABLET (FP) PO PRN (01:11)
[2017-07-16] MEDS ORDERED: LOPERAMIDE HCL 2 MG CAPSULE PO PRN (01:11)
[2017-07-16] MEDS ORDERED: P-EPHED 60MG/TRIPROLIDI 2.5MG TABLET PO PRN (01:11)
[2017-07-16] MEDS ORDERED: chlordiazePOXIDE HCL 25 MG CAPSULE PO ONE (01:11)
[2017-07-16] MEDS ORDERED: MAGNESIUM CITRATE 300 ML BOTTLE PO PRN (01:11)
[2017-07-16] MEDS: diphenhydrAMINE HCL 50 MG CAPSULE PO PRN ×3 (02:34→22:24)
[2017-07-16] MEDS: ACETAMINOPHEN 325 MG TABLET (FP) PO PRN ×3 (02:36→16:44)
[2017-07-16] MEDS: chlordiazePOXIDE HCL 25 MG CAPSULE PO SCH ×4 (06:29→22:23)
[2017-07-16] MEDS: PRENATAL VITAMINS W/ FOLIC ACID TABLET (FP) PO SCH (10:52)
[2017-07-16] MEDS: NICOTINE 21 MG/24 HOURS TOPICAL PATCH TD SCH (10:53)
[2017-07-16] MEDS ORDERED: diphenhydrAMINE HCL 25 MG CAPSULE (FP) PO ONE (13:30)
[2017-07-16] MEDS: NAPROXEN 500 MG TABLET (FP) PO SCH ×2 (13:52→22:23)
[2017-07-16] MEDS: chlordiazePOXIDE HCL 25 MG CAPSULE PO PRN (13:54)
--- NOTE | 2017-07-16 14:30 | PN ---
S CIWA - CIWA Score Nausea/Vomitin Muscle Tremors: 3 Anxiety: 2 Agitation: 2 Paroxysmal Sweats: 1-Minimal Palms Moist Orientation: 0-Oriented Tacttile Disturbances: 1-Very Mild Itch/Numbness Auditory Disturbances: 1-Very Mild Visual Disturbances: 1-Very Mild Sensitivity Headache: 2-Mild CIWA-Ar Total Score: 16 BHS Progress Note (SOAP) Subjective: ALERT,IRRITABLE,ANXIOUS,INTERRUPTED SLEEP,TREMOR,ANNA OF SCALP,ITCHING Objective: 07/16/17 14:27 Vital Signs Temperature 97.7 F 07/16/17 14:09 Pulse Rate 86 07/16/17 14:09 Respiratory Rate 18 07/16/17 14:09 Blood Pressure 118/85 07/16/17 14:09 O2 Sat by Pulse Oximetry (%) EKG NSR NON SPECIFIC T WAVE LABS PENDING 07/16/17 14:28 NO CHEST PAIN,NO SOB,NO DIZZINESS 07/16/17 14:29 Assessment: 07/16/17 14:28 WITHDRAWAL SYMPTOM 07/16/17 14:29 Plan: CONTINUE DETOX,BENADRYL 50 MGS PO NOW FOR ITCHING,REQUESTED NAPROSYN 500 MGS PO BID FOR PAIN IN THE BACK
[2017-07-16] MEDS: MAG HYDROX/AL HYDROX/SIMETH 30 ML UNIT-DOSE CUP PO PRN (19:00)
[2017-07-16] MEDS: THIAMINE HCL 100 MG TABLET (FP) PO SCH (22:23)
[2017-07-16] MEDS: LATANOPROST 0.005% OPHTH SOLN 2.5ML BOTTLE OU SCH (22:23)
[2017-07-16] MEDS: TIMOLOL 0.5% OPHTHALMIC SOL 5 ML BOTTLE OU SCH (22:55)
[2017-07-16] MEDS: RANITIDINE HCL 150 MG TABLET (FP) PO SCH (22:56)
[2017-07-17] MEDS: chlordiazePOXIDE HCL 25 MG CAPSULE PO SCH ×4 (06:33→22:39)
[2017-07-17] MEDS: ACETAMINOPHEN 325 MG TABLET (FP) PO PRN ×2 (07:33→19:22)
--- NOTE | 2017-07-17 09:11 | CONSULT ---
[facility] Psychiatric Consult - Data Date of interview: 07/17/17 Admission source: [facility] Identifying data: This is 56 years old male ambulating with wheelchair, with Schizophrenia, with history of psychiatric hospitalizations intoxiocated with: ASlcohol, Cannabis and Nicotine Substance Abuse History: - Smoking Cessation. Smoking history: Current every day smoker. Have you smoked in the past 12 months: Yes. Aproximately how many cigarettes per day: 40. Cigars Per Day: 0. Hx Chewing Tobacco Use: No. Initiated information on smoking cessation: Yes. 'Breaking Loose' booklet given : 07/16/17. - Substance & Tx. History. Hx Alcohol Use: Yes. Hx Substance Use : Yes. Substance Use Type: Alcohol, Marijuana. Hx Substance Use Treatment: Yes. - Substances Abused. Alcohol. Route: Oral. Frequency: Daily. Amount used: BEER 4 CANS OF BEER/ 1/2 P OF LIQUOR/D. Age of first use: 14. Date of Last Use: 07/15/17. Marijuana/Hashish. Route: Smoking. Frequency: 1-3 times last 30 days. Amount used: $5/EACH TIME. Age of first use: 15. Date of Last Use: 07/02/17 Medical History: LBP, Ambulate with wheelchair, Left Knee Arthritis, Bilateral Glaucoma, Chronic Bronchitis, BPH, GERD Psychiatric History: Patient carries Paranoid Schizophrenia with most recent psychiatric admissiuon on unknown date and unknown Hospital, reprots taking prior to admission: Haldol 5mg po qhs. Trazodone 100mg po qhs. Vistaril 50mg po qid Physical/Sexual Abuse/Trauma History: Denies Additional Comment: Haldol 5mg po qhs. Trazodone 100mg po qhs. Vistaril 50mg po qid Mental Status Exam - Mental Status Exam Alert and Oriented to: Person Cognitive Function: Fair Patient Appearance: Unkempt Mood: Angry Affect: Inappropriate Patient Behavior: Guarded, Agitated Speech Pattern: Excessive, Pressured Voice Loudness: Moderately Loud Thought Process: Circumstantial Thought Disorder: Being Controlled Hallucinations: Denies Suicidal Ideation: Denies Homicidal Ideation: Denies Insight/Judgement: Poor Sleep: Difficulty falling asleep Appetite: Weight gain Muscle strength/Tone: Mild Hypotonicity Gait/Station: Antalgic Additional Comments: Haldol 5mg po qhs. Trazodone 100mg po qhs. Vistaril 50mg po qid Psychiatric Findings - Problem List ([place] 1, 2,3) (1) Alcohol dependence with uncomplicated withdrawal Current Visit: Yes Status: Chronic (2) Anxiety and depression Current Visit: Yes Status: Chronic (3) Nicotine dependence Current Visit: Yes Status: Chronic Qualifiers: Nicotine product type: cigarettes Substance use status: in withdrawal Qualified Code(s): F17.213 - Nicotine dependence, cigarettes, with withdrawal (4) Cocaine dependence Current Visit: No Status: Acute Qualifiers: Substance use status: uncomplicated Qualified Code(s): F14.20 - Cocaine dependence, uncomplicated (5) Drug-induced mood disorder Current Visit: No Status: Acute (6) Depression with anxiety Current Visit: No Status: Chronic (7) Paranoid schizophrenia Current Visit: No Status: Chronic (8) Schizophrenia, undifferentiated Current Visit: No Status: Chronic Comment: Historical but the patient contests this diagnosis. - Initial Treatment Plan Initial Treatment Plan: Haldol 5mg po qhs. Trazodone 100mg po qhs. Vistaril 50mg po qid
[2017-07-17] MEDS ORDERED: HALOPERIDOL 5 MG TABLET (FP) PO PRN (09:18)
[2017-07-17] MEDS: chlordiazePOXIDE HCL 25 MG CAPSULE PO PRN (09:36)
[2017-07-17] MEDS: PRENATAL VITAMINS W/ FOLIC ACID TABLET (FP) PO SCH (09:36)
[2017-07-17] MEDS: hydrOXYzine PAMOATE 25 MG CAPSULE (FP) PO SCH ×4 (09:36→22:40)
[2017-07-17] MEDS: NAPROXEN 500 MG TABLET (FP) PO SCH ×2 (09:36→21:09)
[2017-07-17] MEDS: RANITIDINE HCL 150 MG TABLET (FP) PO SCH ×2 (09:36→21:09)
[2017-07-17] MEDS: NICOTINE 21 MG/24 HOURS TOPICAL PATCH TD SCH (09:45)
[2017-07-17 10:09] LABS: MCHC 33.3 g/dl (32.0-35.9); MEAN CELL VOLUME 86.9 fl (80-96); MEAN PLT VOLUME 9.7 fl (7.5-11.1); PLATELET COUNT 227 K/MM3 (134-434); RDW 17.8 % (11.9-15.9); WHITE BLOOD COUNT 3.9 K/mm3 (4.0-10.0)
[2017-07-17 10:33] LABS: ALBUMIN 3.8 g/dl (3.4-5.0); ALK PHOS 87 U/L (45-117); ANION GAP 6 (8-16); BILIRUBIN,TOTAL 0.8 mg/dL (0.2-1.0); CALCIUM 9.3 mg/dL (8.5-10.1); CO2 32 mmol/L (21-32); CREATININE 0.9 mg/dL (0.7-1.3); GLUCOSE,RANDOM 102 mg/dL (74-106); SGOT/AST 28 U/L (15-37); SGPT/ALT 23 U/L (12-78)
--- NOTE | 2017-07-17 11:29 | PN ---
S CIWA - CIWA Score Nausea/Vomitin-No Nausea/No Vomiting Muscle Tremors: 3 Anxiety: 3 Agitation: 4-Moderately Restless Paroxysmal Sweats: 3 Orientation: 0-Oriented Tacttile Disturbances: 0-None Auditory Disturbances: 0-None Visual Disturbances: 0-None Headache: 2-Mild CIWA-Ar Total Score: 15 S Progress Note (SOAP) Subjective: headache staple in my head sweats anxious interrupted sleep neck pain d/t my spinal fusion Objective: 07/17/17 11:26 Vital Signs Temperature 98.4 F 07/17/17 10:43 Pulse Rate 113 H 07/17/17 10:43 Respiratory Rate 20 07/17/17 10:43 Blood Pressure 125/71 07/17/17 10:43 O2 Sat by Pulse Oximetry (%) Laboratory Tests 07/17/17 07/17/17 07:00 07:00 WBC 3.9 L RBC 4.20 Hgb 12.1 D Hct 36.5 MCV 86.9 MCH 29.0 MCHC 33.3 RDW 17.8 H D Plt Count 227 D MPV 9.7 Sodium 141 Potassium 3.7 Chloride 103 Carbon Dioxide 32 Anion Gap 6 L BUN 10 D Creatinine 0.9 Creat Clearance w eGFR > 60 Random Glucose 102 Calcium 9.3 Total Bilirubin 0.8 D AST 28 ALT 23 D Alkaline Phosphatase 87 Total Protein 7.0 Albumin 3.8 labs pending awake/alert ambulating in wheelchair no acute distress Assessment: 07/17/17 11:27 withdrawals chong intact wound healed: will remove staple Plan: continue detox increase fluids chong removed, wound closed no s/s of infection at the site. analgesic balm ordered
[2017-07-17] MEDS: TIMOLOL 0.5% OPHTHALMIC SOL 5 ML BOTTLE OU SCH ×2 (12:30→22:39)
[2017-07-17] MEDS: METHYL SALICYLATE/MENTHOL OINT 30 GM TUBE TP SCH ×2 (15:45→22:39)
[2017-07-17] MEDS ORDERED: diphenhydrAMINE HCL 25 MG CAPSULE (FP) PO ONE (16:15)
[2017-07-17] MEDS ORDERED: HALOPERIDOL 5 MG TABLET (FP) PO ONE (16:15)
[2017-07-17] MEDS: BENZTROPINE MESYLATE 1 MG TABLET (FP) PO SCH (21:08)
[2017-07-17] MEDS: LATANOPROST 0.005% OPHTH SOLN 2.5ML BOTTLE OU SCH (21:09)
[2017-07-17] MEDS: HALOPERIDOL 5 MG TABLET (FP) PO SCH (21:09)
[2017-07-17] MEDS: traZODone HCL 100 MG TABLET (FP) PO SCH (21:11)
[2017-07-17] MEDS: THIAMINE HCL 100 MG TABLET (FP) PO SCH (22:40)
[2017-07-18] MEDS: MAG HYDROX/AL HYDROX/SIMETH 30 ML UNIT-DOSE CUP PO PRN ×2 (00:48→18:21)
[2017-07-18] MEDS: chlordiazePOXIDE 5 MG CAPSULE PO SCH ×4 (07:20→22:42)
--- NOTE | 2017-07-18 09:08 | PN ---
BHS Progress Note (SOAP) Subjective: Sweating,interrupted sleep,restless Objective: 07/18/17 09:07 Vital Signs - 8 hr 07/18/17 07/18/17 03:30 06:00 Temperature 96.8 F L Pulse Rate 82 Respiratory 18 18 Rate Blood Pressure 99/58 Laboratory Last Values WBC 3.9 K/mm3 (4.0-10.0) L 07/17/17 07:00 RBC 4.20 M/mm3 (4.00-5.60) 07/17/17 07:00 Hgb 12.1 GM/dL (11.7-16.9) D 07/17/17 07:00 Hct 36.5 % (35.4-49) 07/17/17 07:00 MCV 86.9 fl (80-96) 07/17/17 07:00 MCH 29.0 pg (25.7-33.7) 07/17/17 07:00 MCHC 33.3 g/dl (32.0-35.9) 07/17/17 07:00 RDW 17.8 % (11.9-15.9) H D 07/17/17 07:00 Plt Count 227 K/MM3 (134-434) D 07/17/17 07:00 MPV 9.7 fl (7.5-11.1) 07/17/17 07:00 Sodium 141 mmol/L (136-145) 07/17/17 07:00 Potassium 3.7 mmol/L (3.5-5.1) 07/17/17 07:00 Chloride 103 mmol/L (98-107) 07/17/17 07:00 Carbon Dioxide 32 mmol/L (21-32) 07/17/17 07:00 Anion Gap 6 (8-16) L 07/17/17 07:00 BUN 10 mg/dL (7-18) D 07/17/17 07:00 Creatinine 0.9 mg/dL (0.7-1.3) 07/17/17 07:00 Creat Clearance w eGFR > 60 (>60) 07/17/17 07:00 Random Glucose 102 mg/dL (74-106) 07/17/17 07:00 Calcium 9.3 mg/dL (8.5-10.1) 07/17/17 07:00 Total Bilirubin 0.8 mg/dL (0.2-1.0) D 07/17/17 07:00 AST 28 U/L (15-37) 07/17/17 07:00 ALT 23 U/L (12-78) D 07/17/17 07:00 Alkaline Phosphatase 87 U/L (45-117) 07/17/17 07:00 Total Protein 7.0 g/dl (6.4-8.2) 07/17/17 07:00 Albumin 3.8 g/dl (3.4-5.0) 07/17/17 07:00 RPR Titer Nonreactive (NONREACTIVE) 07/17/17 07:00 labs noted Assessment: 07/18/17 09:07 Withdrawal sx. Plan: Continue detox
[2017-07-18] MEDS: hydrOXYzine PAMOATE 25 MG CAPSULE (FP) PO SCH ×4 (10:21→22:42)
[2017-07-18] MEDS: PRENATAL VITAMINS W/ FOLIC ACID TABLET (FP) PO SCH (10:21)
[2017-07-18] MEDS: RANITIDINE HCL 150 MG TABLET (FP) PO SCH ×2 (10:21→21:31)
[2017-07-18] MEDS: BENZTROPINE MESYLATE 1 MG TABLET (FP) PO SCH ×2 (10:21→21:30)
[2017-07-18] MEDS: HALOPERIDOL 5 MG TABLET (FP) PO SCH ×2 (10:21→21:30)
[2017-07-18] MEDS: NAPROXEN 500 MG TABLET (FP) PO SCH ×2 (10:22→21:31)
[2017-07-18] MEDS: METHYL SALICYLATE/MENTHOL OINT 30 GM TUBE TP SCH ×2 (10:22→22:41)
[2017-07-18] MEDS: NICOTINE 21 MG/24 HOURS TOPICAL PATCH TD SCH (10:22)
[2017-07-18] MEDS: TIMOLOL 0.5% OPHTHALMIC SOL 5 ML BOTTLE OU SCH ×2 (10:22→21:32)
[2017-07-18] MEDS: chlordiazePOXIDE HCL 25 MG CAPSULE PO PRN (13:45)
[2017-07-18] MEDS: traZODone HCL 100 MG TABLET (FP) PO SCH (21:30)
[2017-07-18] MEDS: LATANOPROST 0.005% OPHTH SOLN 2.5ML BOTTLE OU SCH (21:32)
[2017-07-18] MEDS: THIAMINE HCL 100 MG TABLET (FP) PO SCH (22:43)
[2017-07-19] MEDS: chlordiazePOXIDE HCL 10 MG CAPSULE PO SCH ×2 (05:10→05:19)
[2017-07-19] MEDS: ACETAMINOPHEN 325 MG TABLET (FP) PO PRN (07:15)
--- NOTE | 2017-07-19 09:29 | DS ---
[facility] Detox Discharge Summary Admission Date: 07/16/17 - History Present History: Alcohol Dependence, Cocaine Dependence - Physical Exam Results Vital Signs: Vital Signs Temperature 97.2 F L 07/18/17 21:26 Pulse Rate 84 07/18/17 21:26 Respiratory Rate 18 07/19/17 00:30 Blood Pressure 112/72 07/18/17 21:26 O2 Sat by Pulse Oximetry (%) - Treatment Hospital Course: Detox Protocol Followed, Detoxed Safely, Responded well, Discharged Condition Good - Medication Discharge Medications: Ambulatory Orders Haloperidol [Haldol -] 5 mg PO BID PRN #60 tablet 02/22/16 Trazodone HCl [Desyrel -] 100 mg PO HS #30 tablet 02/22/16 Brimonidine Tartrate [Alphagan 0.2% -] 1 drop OU BID #1 drops 02/24/16 Latanoprost 0.005% Eye Drops [Xalatan 0.005% Eye Drops -] 1 drop OU HS #1 drops 02/24/16 Naproxen [Naprosyn -] 500 mg PO BID #60 tablet 02/24/16 Sodium Chloride Nasal [place] [[place] Nasal [place] -] 2 spray NS TID PRN #1 bottle 02/24/16 Timolol 0.5% [Timoptic 0.5%] 1 drop OU BID #1 drops 02/24/16 Haloperidol [Haldol -] 5 mg PO BID PRN #60 tablet 09/12/16 Trazodone HCl [Desyrel -] 100 mg PO HS #30 tablet 09/12/16 Trazodone HCl 100 mg PO HS #30 tablet 02/13/17 Azithromycin [Zithromax 1gm Jordin -] 250 mg PO DAILY #4 packet 02/16/17 Ferrous Sulfate [Feosol] 325 mg PO TIDCM #90 ud 02/16/17 Ranitidine [Zantac -] 150 mg PO BID #60 tablet 02/16/17 Benztropine Mesylate [Cogentin -] 1 mg PO BID #60 tablet 07/17/17 Haloperidol [Haldol -] 5 mg PO BID #14 tablet 07/17/17 Hydroxyzine Pamoate [Vistaril -] 50 mg PO QID #120 capsule 07/17/17 Trazodone HCl 100 mg PO HS #30 tablet 07/17/17 - Diagnosis (1) Alcohol dependence with uncomplicated withdrawal Current Visit: Yes Status: Chronic (2) Anxiety and depression Current Visit: Yes Status: Chronic (3) Cannabis dependence Current Visit: Yes Status: Chronic (4) Nicotine dependence Current Visit: Yes Status: Chronic Qualifiers: Nicotine product type: cigarettes Substance use status: in withdrawal Qualified Code(s): F17.213 - Nicotine dependence, cigarettes, with withdrawal (5) Cocaine dependence Current Visit: No Status: Acute Qualifiers: Substance use status: uncomplicated Qualified Code(s): F14.20 - Cocaine dependence, uncomplicated (6) BPH (benign prostatic hypertrophy) Current Visit: No Status: Chronic - AMA Did Patient Leave Against Medical Advice: No
[2017-07-19] MEDS: PRENATAL VITAMINS W/ FOLIC ACID TABLET (FP) PO SCH (09:43)
[2017-07-19] MEDS: hydrOXYzine PAMOATE 25 MG CAPSULE (FP) PO SCH ×2 (09:43→09:53)
[2017-07-19] MEDS: METHYL SALICYLATE/MENTHOL OINT 30 GM TUBE TP SCH (09:43)
[2017-07-19] MEDS: BENZTROPINE MESYLATE 1 MG TABLET (FP) PO SCH ×2 (09:43→09:53)
[2017-07-19] MEDS: RANITIDINE HCL 150 MG TABLET (FP) PO SCH (09:43)
[2017-07-19] MEDS: TIMOLOL 0.5% OPHTHALMIC SOL 5 ML BOTTLE OU SCH (09:44)
[2017-07-19] MEDS: HALOPERIDOL 5 MG TABLET (FP) PO SCH ×2 (09:44→09:53)
[2017-07-19] MEDS: NICOTINE 21 MG/24 HOURS TOPICAL PATCH TD SCH (09:44)
[2017-07-19] MEDS: NAPROXEN 500 MG TABLET (FP) PO SCH (09:44)
[2017-07-19 10:00] VITALS: BP 104/70; PULSE 68; TEMP 96.6
--- NOTE | 2017-07-19 11:33 | EKG ---
Test Reason : Blood Pressure : / mmHG Vent. Rate : 084 BPM Atrial Rate : 084 BPM P-R Int : 160 ms QRS Dur : 098 ms QT Int : 374 ms P-R-T Axes : 076 060 077 degrees QTc Int : 441 ms NORMAL SINUS RHYTHM NONSPECIFIC T WAVE ABNORMALITY cannot r/o anteriolateral ischemia ABNORMAL ECG WHEN COMPARED WITH ECG OF 12-FEB-2017 17:56, NO SIGNIFICANT CHANGE WAS FOUND Confirmed by RACHEAL MURPHY MD ([id number]) on 07/19/2017 11:32:51 AM Referred By: Confirmed By:RACHEAL MURPHY MD
== END 2017-07-19 10:11 | disposition home or self-care (01) | DRG 774 ==
LOC: ASASADMIT 00:37 → Y6N 01:08
PROVIDERS: ADMIT Internal Medicine; ATTEND Internal Medicine
PROC: HZ2ZZZZ Detoxification Services for Substance Abuse Treatment (ICD-10-PCS; principal; 2017-07-19)
DX: F10.230 Alcohol dependence with withdrawal, uncomplicated (principal); F14.20 Cocaine dependence, uncomplicated; F12.20 Cannabis dependence, uncomplicated; F17.213 Nicotine dependence, cigarettes, with withdrawal; F20.0 Paranoid schizophrenia; F19.24 Other psychoactive substance dependence with psychoactive substance-induced mood disorder; F41.8 Other specified anxiety disorders; E11.9 Type 2 diabetes mellitus without complications; G40.909 Epilepsy, unspecified, not intractable, without status epilepticus; M12.9 Arthropathy, unspecified; N40.0 Benign prostatic hyperplasia without lower urinary tract symptoms
CPT/HCPCS: 36415; 80053; 85027; 86593; 93005; 93010

== ENCOUNTER 2018-06-07 11:32 | Inpatient (IN) | payer OTHER ==
[2018-06-07] MEDS ORDERED: ACETAMINOPHEN 325 MG TABLET (FP) PO PRN ×2 (12:56→15:35)
[2018-06-07] MEDS ORDERED: LOPERAMIDE HCL 2 MG CAPSULE PO PRN (12:56)
[2018-06-07] MEDS ORDERED: NICOTINE POLACRILEX 2 MG GUM BUC PRN (12:56)
[2018-06-07] MEDS ORDERED: MAGNESIUM HYDROX 2400MG/30ML ORAL SUSPENSION 30 ML CUP PO PRN (12:56)
[2018-06-07] MEDS ORDERED: P-EPHED 60MG/TRIPROLIDI 2.5MG TABLET PO PRN (12:56)
[2018-06-07] MEDS ORDERED: MAGNESIUM CITRATE 300 ML BOTTLE PO PRN (12:56)
[2018-06-07] MEDS ORDERED: MAG HYDROX/AL HYDROX/SIMETH 30 ML UNIT-DOSE CUP PO PRN (12:56)
[2018-06-07] MEDS ORDERED: IBUPROFEN 400 MG TABLET (FP) PO PRN (12:56)
[2018-06-07] MEDS ORDERED: MENTHOL/PHENOL 1 EACH UD MM PRN (12:56)
--- NOTE | 2018-06-07 13:03 | HP ---
[facility] Re[facility] Assess/Revision - Admission History Admitted to Rehab from: [facility] Date of Admission to Rehab: 06/07/18 - Findings Detox History & Physical reviewed: Yes Concur with findings: Yes Comments/Additional Findings: transferred from detox to rehab admission as per protocol Inpatient Rehab Admission - Rehab Admission Criteria Previous failed treatment: Yes Poor recovery environment: Yes Comorbidities: Yes Lacks judgement: No Patient is meeting Inpatient Rehab admission criteria:: Yes
[2018-06-07] MEDS ORDERED: NICOTINE 14 MG/24 HOURS TOPICAL PATCH TD PRN (14:45)
[2018-06-07] MEDS: CLINDAMYCIN HCL 300 MG CAPSULE PO SCH ×2 (15:23→20:00)
[2018-06-07] MEDS: guaiFENesin/D-METHORPHAN HB 10 ML UNIT-DOSE CUPS PO PRN (15:29)
[2018-06-07] MEDS ORDERED: PT OWN MED DRAWER 7, Y5N ONE ×2 (15:32→17:42)
[2018-06-07] MEDS ORDERED: FERROUS SO4 325 MG TABLET (FP) PO SCH (17:30)
[2018-06-07] MEDS: FERROUS SO4 325 MG TABLET (FP) PO SCH (17:38)
[2018-06-07] MEDS: TIMOLOL 0.5% OPHTHALMIC SOL 5 ML BOTTLE OU SCH (17:43)
[2018-06-07] MEDS ORDERED: MELATONIN 5 MG TABLETS PO PRN (22:00)
[2018-06-07] MEDS ORDERED: LATANOPROST 0.005% OPHTH SOLN 2.5ML BOTTLE OU SCH (22:00)
[2018-06-07] MEDS ORDERED: THIAMINE HCL 100 MG TABLET (FP) PO SCH (22:00)
[2018-06-07] MEDS: RANITIDINE HCL 150 MG TABLET (FP) PO SCH (22:14)
[2018-06-08] MEDS: guaiFENesin/D-METHORPHAN HB 10 ML UNIT-DOSE CUPS PO PRN (06:17)
[2018-06-08] MEDS: CLINDAMYCIN HCL 300 MG CAPSULE PO SCH (06:18)
--- NOTE | 2018-06-08 06:28 | HP ---
Psychiatrist Admission - Data Date of interview: 06/08/18 Admission source: [facility] Identifying data: This is the first [facility] admission for this 57 years old single Black male, father of 2 children, unemployed on SSI, homeless Medical History: Significant for a host of medical issues including glaucoma, cataracts (bilateral), withdrawal seizures, peptic ulcer disease, tumor of left wrist, cervical fusion (consequence of injuries sustained in a fall while riding an escalator), BPH (benign prostatic hyperplasia), past history of orthosurgery for fracture of right ankle (hardware in situ) and surgery for laceration of right wrist (glass). Smokes cigarettes Psychiatric History: History of psychiatric hospitalizations at various facilities.Known to [facility].Diagnosed with MDD ( self-report).Patient states that he used to be on zoloft and haldol." I don't want to take these things again.All I want is my trazodone and benadryl at night." Mr Mcrae informs that he does not have an OPD provider." I used to go to a place to see a psychiatrist but it is so long ago that I don't remember much about anything." With the exception of trazodone,the patient declines to consider any other psychotropic medications.No reported history of suicide attempts. Vital Signs: Vital Signs - 24 hr 06/08/18 00:30 Respiratory 18 Rate Allergies/Adverse Reactions: Allergies Allergy/AdvReac Type Severity Reaction Status Date / Time metoclopramide HCl Allergy Severe Swelling Verified 06/03/18 11:33 [From Reglan] Penicillins Allergy Severe Hives Verified 06/03/18 11:33 shellfish derived Allergy Severe Swelling Verified 06/03/18 11:33 orange juice AdvReac Mild Rash Verified 06/03/18 11:33 Date of last physical exam: 06/03/18 Concur with the findings of this exam: Yes - Substance Abuse/Tx History Hx Alcohol Use: Yes Hx Substance Use: No Substance Use Type: Alcohol (Started drinking alcohol at age 14, consumes 2 quarts of vodka & 2x 6pk (22oz) of beer daily. Last drank on 06/03/18) Hx Substance Use Treatment: Yes (Multiple(12)previous inpt detox @ [facility]) Psychiatric Findings - Problem List ([place] 1, 2,3) (1) Alcohol dependence Current Visit: Yes Status: Acute (2) Nicotine dependence Current Visit: No Status: Chronic Qualifiers: Nicotine product type: cigarettes Substance use status: in withdrawal Qualified Code(s): F17.213 - Nicotine dependence, cigarettes, with withdrawal (3) Schizophrenia, undifferentiated Current Visit: No Status: Chronic Comment: Historical but the patient contests this diagnosis.
[2018-06-08 06:35] VITALS: BP 123/79; PULSE 70; TEMP 97.8
[2018-06-08] MEDS: FERROUS SO4 325 MG TABLET (FP) PO SCH (07:17)
[2018-06-08] MEDS: TIMOLOL 0.5% OPHTHALMIC SOL 5 ML BOTTLE OU SCH (09:34)
[2018-06-08] MEDS: RANITIDINE HCL 150 MG TABLET (FP) PO SCH (09:34)
[2018-06-08] MEDS ORDERED: PRENATAL VITAMINS W/ FOLIC ACID TABLET (FP) PO SCH (10:00)
--- NOTE | 2018-06-08 10:40 | PN ---
S Progress Note Note: Patient left AMA. Patient medically stable. Patient to follow up with primary care provider upon discharge.
[2018-06-08] MEDS ORDERED: PT OWN MED DRAWER 7, Y5N ONE (11:24)
[2018-06-08] MEDS ORDERED: PNEUMOCOCCAL 23 VACCINE 0.5 ML VIAL IM ONE (12:00)
[2018-06-08] MEDS ORDERED: PNEUMOC 13-VAL CONJ-DIP CRM/PF 0.5 ML DISP.SYRIN IM ONE (12:10)
== END 2018-06-08 11:50 | disposition left against medical advice (07) | DRG 861 ==
LOC: YASAS 11:32 → Y3W 11:33
PROVIDERS: ADMIT Psychiatry & Neurology Psychiatry; ATTEND Psychiatry & Neurology Psychiatry
PROC: HZ42ZZZ Group Counseling for Substance Abuse Treatment, Cognitive-Behavioral (ICD-10-PCS; principal; 2018-06-07)
DX: F17.210 Nicotine dependence, cigarettes, uncomplicated (principal); F20.3 Undifferentiated schizophrenia
CPT/HCPCS: 90732; G0009

== ENCOUNTER 2018-07-06 13:14 | Inpatient (IN) | payer OTHER ==
[2018-07-06 18:17] VITALS: BMI 25.9
--- NOTE | 2018-07-06 22:06 | HP ---
CIWA Score - CIWA Score Nausea/Vomitin-Mild Nausea/No Vomiting Muscle Tremors: 4-Moderate,w/Arms Extend Anxiety: 4-Mod. Anxious/Guarded Agitation: 4-Moderately Restless Paroxysmal Sweats: 1-Minimal Palms Moist Orientation: 1-Uncertain about Date Tacttile Disturbances: 1-Very Mild Itch/Numbness Auditory Disturbances: 0-None Visual Disturbances: 0-None Headache: 2-Mild CIWA-Ar Total Score: 18 Admission [facility] Chief Complaint: Here for alcohol withdrawal. Allergies/Adverse Reactions: Allergies Allergy/AdvReac Type Severity Reaction Status Date / Time metoclopramide HCl Allergy Severe Swelling Verified 07/06/18 21:36 [From Reglan] Penicillins Allergy Severe Hives Verified 07/06/18 21:36 shellfish derived Allergy Severe Swelling Verified 07/06/18 21:36 orange juice AdvReac Mild Rash Verified 07/06/18 21:36 History of Present Illness: Alcohol use disorder since age 14. Longest period of sobriety was 2 years in 2014. Hx alcohol related seizures and blackouts. Past hx of cocaine and THC use. Hx of sores in mouth, skin bumps, dry itchy skin and swelling of legs and states being treated w/ Clindamycin for these problems. Hx bone disorders which include arthritis, spinal fusions and chronic knee and ankle pain. Uses a cane for support w/ walking. Hx: Gastric ulcers and currently acid reflux. Has glaucoma and cataract disorder. Exam Limitations: No Limitations - Ebola screening Have you traveled outside of the country in the last 21 days: No Have you had contact with anyone from an Ebola affected area: No Have you been sick,other than usual withdrawal symptoms: No Do you have a fever: No - Review of Systems Constitutional: Chills, Diaphoresis, Changes in sleep (Difficulty falling asleep ) EENT: reports: Cataracts (States small right now), Blurred Vision (Wears and needs glasses.), Dental Problems (Missing many. No problem chewing and swallowing), Other (Hx glaucoma on eye drops.) Respiratory: reports: SOB with Exertion (w/ walking after 7 blocks), Other ( Coughing.) Cardiac: reports: Edema (BLE edema states), Irregular Heart Rate (Unknown cause) GI: reports: Indigestion (Hx gastric ulcer disease w/ current acid indigestion,) : reports: Frequency (Chroinic urinary increased during day and night w/o burning or pain.) Musculoskeletal: reports: Back Pain (Chronic back pain w/ hx fusion of spine w/ plates and rods.), Joint Pain (Arthritis in ankles and knees. can go up to 10. Increases w/ walking. Relieved w/ rest.), Neck Pain (Chronic achy pain. "0" now but goes up to "10" r/t attempts at turning neck) Integumentary: reports: Dryness (Generalzed dry skin.), Pruritus, Rash (Rash over entire body with bumps and increased itching. States started on Clindamycin for rash. States lost medications.), Other (Cyst (L) wrist) Neuro: reports: Headache, Seizure (r/t alcohol), Tremors Endocrine: reports: No Symptoms Reported Hematology: reports: Anemia (Iron deficiency) Psychiatric: reports: Orientated x3, Agitated, Anxious (States chronic anxiety) , Depressed (Denies thoughts of self-harm) Patient History - Patient Medical History Hx Anemia: No Hx Asthma: No Hx Chronic Obstructive Pulmonary Disease (COPD): No Hx Cancer: No Hx Cardiac Disorders: No Hx Congestive Heart Failure: No Hx Hypertension: No Hx Hypercholesterolemia: No Hx Pacemaker: No HX Cerebrovascular Accident: No Hx Seizures: Yes (ALCOHOL R/T SEIZURE LAST ATTACK LAST YEAR) Hx Dementia: No Hx Diabetes: No Hx Gastrointestinal Disorders: Yes (GASTRIC ULCER) Hx Liver Disease: No Hx Genitourinary Disorders: No Hx Sexually Transmitted Disorders: No Hx Renal Disease (ESRD): No Hx Thyroid Disease: No Hx Human Immunodeficiency Virus (HIV): No (05/14 negative ) Hx Hepatitis C: No Hx Depression: Yes (Denies suicide or violent ideation) Hx Suicide Attempt: No Hx Bipolar Disorder: No Hx Schizophrenia: No - Patient Surgical History Past Surgical History: Yes Hx Neurologic Surgery: Yes (C-SPINE FUSION IN 2016) Hx Cataract Extraction: No Hx Cardiac Surgery: No Hx Lung Surgery: No Hx Breast Surgery: No Hx Breast Biopsy: No Hx Abdominal Surgery: No Hx Appendectomy: No Hx Cholecystectomy: No Hx Genitourinary Surgery: No Hx Section: No Hx Orthopedic Surgery: Yes (Sx bilateral wrist and R ankle sx; ON THE NECK) Other Surgical History: HE FELL DOWN 4 DAYS AGO AND INURED THE SCALP - STAPLED Anesthesia Reaction: No - PPD History Previous Implant?: Yes Documented Results: Negative w/proof Implanted On Prior [facility] Admission?: Yes Date: 06/05/18 Results: 0 MM PPD to be Administered?: No - Smoking Cessation Smoking history: Current every day smoker Have you smoked in the past 12 months: Yes Aproximately how many cigarettes per day: 30 Cigars Per Day: 0 Hx Chewing Tobacco Use: No Initiated information on smoking cessation: Yes 'Breaking Loose' booklet given: 07/06/18 - Substance & Tx. History Hx Alcohol Use: Yes Hx Substance Use: Yes Substance Use Type: Alcohol Hx Substance Use Treatment: Yes (Multiple detoxes) - Substances Abused Alcohol Route: Oral Frequency: Daily Amount used: 2 1/2 BOTTLE OF VODKA Age of first use: 14 Date of Last Use: 07/06/18 Family Disease History - Family Disease History Family Disease History: Other: Father (alcohol,), Mother (alcohol), Brother (alcohol), Sister (alcohol) Admission Physical Exam [facility] - Vital Signs Vital Signs: Vital Signs - 24 hr 07/06/18 18:15 Temperature 98.8 F Pulse Rate 115 H Respiratory 16 Rate Blood Pressure 111/66 - Physical General Appearance: Yes: Appropriately Dressed, Mild Distress, Tremorous, Irritable, Sweating, Anxious HEENTM: Yes: EOMI, Hearing grossly Normal, MARISOL, Nasal Congestion Respiratory: Yes: Chest Non-Tender, Lungs Clear, Normal Breath Sounds, No Respiratory Distress, Other (Cough productive of thick whitish phlegm) Neck: Yes: No masses,lesions,Nodules, Other (Unable to turn neck laterally or put chin to chest.) Breast: Yes: Breast Exam Deferred Cardiology: Yes: Regular Rhythm, Regular Rate, S1, S2 Abdominal: Yes: Non Tender, Soft, Increased Bowel Sounds Genitourinary: Yes: Frequency Back: Yes: Surgical Scar (Decrease flexion.) Musculoskeletal: Yes: Joint Stiffness, Other (Soft mass (L) inner wrist. Non- tender.) Extremities: Yes: Tremors (hands when arms extended), Pedal Edema (Bilateral pedal edema. Pedal pulse (+)), Other (Bilateral non-pitting edema foot to mid- calf) 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: Yes: machine burrer II-XII NML intact, Fully Oriented, Alert, Motor Strength 5/5 Integumentary: Yes: Normal Color, Dry (Very dry w/ scratch kraus), Other Lymphatic: Yes: Within Normal Limits - Diagnostic (1) History of neck surgery Current Visit: No Status: Chronic (2) Alcohol dependence with uncomplicated withdrawal Current Visit: Yes Status: Acute (3) Arthritis Current Visit: Yes Status: Chronic (4) BPH (benign prostatic hypertrophy) Current Visit: No Status: Chronic Qualifiers: Lower urinary tract symptom presence: unspecified whether lower urinary tract symptoms present Qualified Code(s): N40.0 - Benign prostatic hyperplasia without lower urinary tract symptoms (5) Chronic low back pain Current Visit: Yes Status: Chronic Qualifiers: Back pain laterality: unspecified Sciatica presence: unspecified whether sciatica present Qualified Code(s): M54.5 - Low back pain; G89.29 - Other chronic pain (6) Chronic neck pain Current Visit: Yes Status: Chronic (7) Gastroesophageal reflux disease Current Visit: Yes Status: Chronic (8) Glaucoma of both eyes Current Visit: Yes Status: Chronic Qualifiers: Glaucoma type: primary angle-closure Primary angle closure glaucoma type: chronic Glaucoma stage: mild stage Qualified Code(s): H40.2231 - Chronic angle-closure glaucoma, bilateral, mild stage (9) Nicotine dependence Current Visit: No Status: Chronic Qualifiers: Nicotine product type: cigarettes Substance use status: in withdrawal Qualified Code(s): F17.213 - Nicotine dependence, cigarettes, with withdrawal (10) Use of cane as ambulatory aid Current Visit: Yes Status: Chronic (11) Disorder of the skin and subcutaneous tissue, unspecified Current Visit: Yes Status: Acute Cleared for Admission [facility] - Detox or Rehab [facility] Level of Care: Medically Managed Detox Regimen/Protocol: Librium [facility] Breath Alcohol Content Breath Alcohol Content: 0.047 Urine Drug Screen - Results Drug Screen Negative: Yes
[2018-07-06] MEDS ORDERED: guaiFENesin/D-METHORPHAN HB 10 ML UNIT-DOSE CUPS PO PRN (23:00)
[2018-07-06] MEDS ORDERED: MAGNESIUM HYDROX 2400MG/30ML ORAL SUSPENSION 30 ML CUP PO PRN (23:00)
[2018-07-06] MEDS ORDERED: MAGNESIUM CITRATE 300 ML BOTTLE PO PRN (23:00)
[2018-07-06] MEDS ORDERED: MENTHOL/PHENOL 1 EACH UD MM PRN (23:00)
[2018-07-06] MEDS ORDERED: LOPERAMIDE HCL 2 MG CAPSULE PO PRN (23:00)
[2018-07-06] MEDS ORDERED: NICOTINE POLACRILEX 4 MG GUM BC PRN (23:00)
[2018-07-06] MEDS ORDERED: IBUPROFEN 400 MG TABLET (FP) PO PRN (23:00)
[2018-07-06] MEDS ORDERED: MAG HYDROX/AL HYDROX/SIMETH 30 ML UNIT-DOSE CUP PO PRN (23:00)
[2018-07-06] MEDS ORDERED: P-EPHED 60MG/TRIPROLIDI 2.5MG TABLET PO PRN (23:00)
[2018-07-06] MEDS ORDERED: chlordiazePOXIDE HCL 25 MG CAPSULE PO PRN (23:00)
[2018-07-06] MEDS ORDERED: HYDROCORTISONE 1% TOPICAL CREAM 30 GM TUBE TP PRN (23:51)
[2018-07-07] MEDS: ACETAMINOPHEN 325 MG TABLET (FP) PO PRN ×2 (00:02→17:52)
[2018-07-07] MEDS: chlordiazePOXIDE HCL 25 MG CAPSULE PO SCH ×5 (00:03→22:42)
[2018-07-07] MEDS ORDERED: diphenhydrAMINE HCL 25 MG CAPSULE (FP) PO ONE ×2 (00:47→18:15)
[2018-07-07] MEDS: CLINDAMYCIN HCL 150 MG CAPSULE (FP) PO SCH ×3 (05:57→22:42)
[2018-07-07] MEDS: FERROUS SO4 325 MG TABLET (FP) PO SCH ×3 (08:50→17:48)
[2018-07-07 10:35] LABS: HEMATOCRIT 31.6 % (35.4-49); HEMOGLOBIN 10.7 GM/dL (11.7-16.9); MCH 28.6 pg (25.7-33.7); MCHC 33.8 g/dl (32.0-35.9); MEAN CELL VOLUME 84.6 fl (80-96); MEAN PLT VOLUME 8.8 fl (7.5-11.1); PLATELET COUNT 164 K/MM3 (134-434); RBC 3.73 M/mm3 (4.00-5.60); RDW 18.6 % (11.9-15.9); WHITE BLOOD COUNT 4.9 K/mm3 (4.0-10.0)
[2018-07-07] MEDS: RANITIDINE HCL 150 MG TABLET (FP) PO SCH ×2 (10:43→22:42)
[2018-07-07] MEDS: NICOTINE 21 MG/24 HOURS TOPICAL PATCH TD SCH (10:43)
[2018-07-07] MEDS: PRENATAL VITAMINS W/ FOLIC ACID TABLET (FP) PO SCH (10:43)
[2018-07-07 10:47] LABS: CHLORIDE 98 mmol/L (98-107); POTASSIUM 3.5 mmol/L (3.5-5.1); SODIUM 136 mmol/L (136-145)
[2018-07-07] MEDS: NAPROXEN 500 MG TABLET (FP) PO PRN ×2 (10:48→22:42)
[2018-07-07] MEDS: TIMOLOL 0.5% OPHTHALMIC SOL 5 ML BOTTLE OU SCH ×2 (10:49→22:42)
[2018-07-07 10:54] LABS: ALBUMIN 3.4 g/dl (3.4-5.0); ALK PHOS 90 U/L (45-117); ANION GAP 9 (8-16); BILIRUBIN,TOTAL 0.6 mg/dL (0.2-1.0); BLOOD UREA NITROGEN 7 mg/dL (7-18); CALCIUM 8.4 mg/dL (8.5-10.1); CO2 29 mmol/L (21-32); CREATININE 0.8 mg/dL (0.7-1.3); GLUCOSE,RANDOM 92 mg/dL (74-106); SGOT/AST 23 U/L (15-37); SGPT/ALT 18 U/L (12-78); TOT PROT 6.9 g/dl (6.4-8.2)
--- NOTE | 2018-07-07 12:20 | PN ---
S CIWA - CIWA Score Nausea/Vomitin-No Nausea/No Vomiting Muscle Tremors: 4-Moderate,w/Arms Extend Anxiety: 4-Mod. Anxious/Guarded Agitation: 4-Moderately Restless Paroxysmal Sweats: 1-Minimal Palms Moist Orientation: 0-Oriented Tacttile Disturbances: 0-None Auditory Disturbances: 0-None Visual Disturbances: 0-None Headache: 0-None Present CIWA-Ar Total Score: 13 BHS Progress Note (SOAP) Subjective: ANXIETY,SWEATS,TREMORS,CHILLS. Objective: 07/07/18 12:20 Vital Signs 07/07/18 07/07/18 07/07/18 06:16 06:30 09:31 Temperature 97.2 F L 97.6 F Pulse Rate 87 83 Respiratory 18 18 18 Rate Blood Pressure 142/86 152/93 Laboratory Tests 07/07/18 07/07/18 07/07/18 07:40 07:40 07:40 WBC 4.9 RBC 3.73 L Hgb 10.7 L Hct 31.6 L MCV 84.6 MCH 28.6 MCHC 33.8 RDW 18.6 H Plt Count 164 MPV 8.8 Sodium 136 Potassium 3.5 Chloride 98 Carbon Dioxide 29 Anion Gap 9 BUN 7 Creatinine 0.8 Creat Clearance w eGFR > 60 Random Glucose 92 Calcium 8.4 L Total Bilirubin 0.6 AST 23 ALT 18 Alkaline Phosphatase 90 Total Protein 6.9 Albumin 3.4 RPR Titer Nonreactive Assessment: 07/07/18 12:20 WITHDRAWAL SX Plan: CONTINUE DETOX
--- NOTE | 2018-07-07 13:16 | CONSULT ---
[facility] Psychiatric Consult - Data Date of interview: 07/07/18 Admission source: [facility] Identifying data: [employer] Utility Worker approached patient multiple times for psychiatric consultation. Pt. refused. Pt. stated, "Not now. maybe later." Nursing staff informed.
--- NOTE | 2018-07-07 18:11 | PN ---
[facility] Progress Note Note: benadryl ordered for pt's continued itching. No SOB, no resp distress, no hives.
[2018-07-07] MEDS: THIAMINE HCL 100 MG TABLET (FP) PO SCH (22:42)
[2018-07-07] MEDS: hydrOXYzine PAMOATE 25 MG CAPSULE (FP) PO PRN (22:44)
[2018-07-07] MEDS: LATANOPROST 0.005% OPHTH SOLN 2.5ML BOTTLE OU SCH (22:46)
[2018-07-07] MEDS: MELATONIN 5 MG TABLETS PO PRN (22:46)
[2018-07-08] MEDS: CLINDAMYCIN HCL 150 MG CAPSULE (FP) PO SCH ×3 (05:29→22:52)
[2018-07-08] MEDS: chlordiazePOXIDE HCL 25 MG CAPSULE PO SCH ×3 (05:29→17:26)
[2018-07-08] MEDS: ACETAMINOPHEN 325 MG TABLET (FP) PO PRN ×3 (05:29→22:53)
[2018-07-08] MEDS: FERROUS SO4 325 MG TABLET (FP) PO SCH ×3 (07:19→17:25)
[2018-07-08] MEDS: hydrOXYzine PAMOATE 25 MG CAPSULE (FP) PO PRN ×2 (07:20→22:52)
--- NOTE | 2018-07-08 08:58 | EKG ---
Test Reason : Blood Pressure : / mmHG Vent. Rate : 078 BPM Atrial Rate : 078 BPM P-R Int : 116 ms QRS Dur : 090 ms QT Int : 414 ms P-R-T Axes : 043 058 059 degrees QTc Int : 471 ms POOR DATA QUALITY, INTERPRETATION MAY BE ADVERSELY AFFECTED NORMAL SINUS RHYTHM NONSPECIFIC T WAVE ABNORMALITY ABNORMAL ECG WHEN COMPARED WITH ECG OF 03-JUN-2018 12:40, NONSPECIFIC T WAVE ABNORMALITY HAS REPLACED INVERTED T WAVES IN ANTERIOR LEADS Confirmed by MIHAI SANCHES MD ([id number]) on 07/08/2018 8:57:40 AM Referred By: Confirmed By:MIHAI SANCHES MD
[2018-07-08] MEDS: NAPROXEN 500 MG TABLET (FP) PO PRN ×2 (10:57→22:52)
[2018-07-08] MEDS: PRENATAL VITAMINS W/ FOLIC ACID TABLET (FP) PO SCH (10:57)
[2018-07-08] MEDS: RANITIDINE HCL 150 MG TABLET (FP) PO SCH ×2 (10:57→22:51)
[2018-07-08] MEDS: TIMOLOL 0.5% OPHTHALMIC SOL 5 ML BOTTLE OU SCH ×2 (10:58→22:50)
[2018-07-08] MEDS: NICOTINE 21 MG/24 HOURS TOPICAL PATCH TD SCH (10:58)
--- NOTE | 2018-07-08 13:22 | PN ---
[facility] CIWA - CIWA Score Nausea/Vomitin-Mild Nausea/No Vomiting Muscle Tremors: 3 Anxiety: 3 Agitation: 3 Paroxysmal Sweats: 3 Orientation: 0-Oriented Tacttile Disturbances: 1-Very Mild Itch/Numbness Auditory Disturbances: 0-None Visual Disturbances: 0-None Headache: 0-None Present CIWA-Ar Total Score: 14 S Progress Note (SOAP) Subjective: Sweating, itchy skin, nausea, interrupted sleep Objective: 07/08/18 13:21 Last Vital Signs Temp Pulse Resp BP Pulse Ox 98.1 F 87 18 111/75 07/08/18 09:17 07/08/18 09:17 07/08/18 09:17 07/08/18 09:17 Laboratory Tests 07/07/18 07/07/18 07/07/18 07:40 07:40 07:40 WBC 4.9 RBC 3.73 L Hgb 10.7 L Hct 31.6 L MCV 84.6 MCH 28.6 MCHC 33.8 RDW 18.6 H Plt Count 164 MPV 8.8 Sodium 136 Potassium 3.5 Chloride 98 Carbon Dioxide 29 Anion Gap 9 BUN 7 Creatinine 0.8 Creat Clearance w eGFR > 60 Random Glucose 92 Calcium 8.4 L Total Bilirubin 0.6 AST 23 ALT 18 Alkaline Phosphatase 90 Total Protein 6.9 Albumin 3.4 RPR Titer Nonreactive Labs reviewed Assessment: 07/08/18 13:22 Withdrawal symptoms Plan: Continue detox
[2018-07-08] MEDS: LATANOPROST 0.005% OPHTH SOLN 2.5ML BOTTLE OU SCH (22:50)
[2018-07-08] MEDS: THIAMINE HCL 100 MG TABLET (FP) PO SCH (22:50)
[2018-07-08] MEDS: MELATONIN 5 MG TABLETS PO PRN (22:52)
[2018-07-08] MEDS: chlordiazePOXIDE 5 MG CAPSULE PO SCH (22:52)
[2018-07-09] MEDS: chlordiazePOXIDE 5 MG CAPSULE PO SCH ×2 (06:12→10:31)
[2018-07-09] MEDS: CLINDAMYCIN HCL 150 MG CAPSULE (FP) PO SCH ×2 (06:13→13:07)
[2018-07-09] MEDS: FERROUS SO4 325 MG TABLET (FP) PO SCH ×2 (08:31→12:48)
[2018-07-09 10:20] LABS: URINE APPEARANCE CLEAR; URINE BILIRUBIN NEGATIVE (<2.0 mg/dL); URINE COLOR YELLOW; URINE GLUCOSE (UA) NEGATIVE (NEGATIVE); URINE KETONE NEGATIVE (NEGATIVE); URINE LEUK ESTERASE NEGATIVE (NEGATIVE); URINE NITRITE NEGATIVE (NEGATIVE); URINE PROTEIN NEGATIVE (NEGATIVE)
[2018-07-09] MEDS: RANITIDINE HCL 150 MG TABLET (FP) PO SCH (10:31)
[2018-07-09] MEDS: NAPROXEN 500 MG TABLET (FP) PO PRN (10:31)
[2018-07-09] MEDS: NICOTINE 21 MG/24 HOURS TOPICAL PATCH TD SCH (10:32)
[2018-07-09] MEDS: TIMOLOL 0.5% OPHTHALMIC SOL 5 ML BOTTLE OU SCH (10:32)
[2018-07-09] MEDS: PRENATAL VITAMINS W/ FOLIC ACID TABLET (FP) PO SCH (10:33)
[2018-07-09 14:09] VITALS: BP 109/69; PULSE 87; TEMP 98.2
--- NOTE | 2018-07-09 16:10 | PN ---
[facility] Progress Note (SOAP) Subjective: The room is too cold requesting benadryl "am alright" Objective: 07/09/18 16:07 Pt is highly irritable No SOB nor acute distress noted Was met in room making bed Continues to be angry despite explanation on why room might be cold and offer to have engineering dept adjust room temperature Vital Signs Temperature 98.2 F 07/09/18 14:00 Pulse Rate 87 07/09/18 14:00 Respiratory Rate 18 07/09/18 14:00 Blood Pressure 109/69 07/09/18 14:00 O2 Sat by Pulse Oximetry (%) Assessment: 07/09/18 16:10 withdrawal sx Plan: continue detox
--- NOTE | 2018-07-09 16:12 | DS ---
[facility] Detox Discharge Summary Admission Date: 07/06/18 Discharge Date: 07/09/18 - History Additional Comments: Was informed by Nursing staff Tg [facility] that pt was insisting on leaving unit despite being encouraged to complete detox. Patient was not willing to wait for provider to arrive unit. Pt left prior to being evaluated by this provider. Pt left against medical advice. Pt was earlier seen by this provider, was A & O x 3, highly irritable but was in no apparent medical distress unable to verify pharmacy name or if meds refill needed with pt. Attempted to reach pt on documented phone # for him and his next of kin Ming guadarrama ([phone]). Spoke with a Mr Marti who stated that Ms Lai was ; that he is her grandson, knows Mr Mcrae but does not have a contact info/telephone for Mr Mcrae. - Physical Exam Results Vital Signs: Vital Signs Temperature 98.2 F 07/09/18 14:00 Pulse Rate 87 07/09/18 14:00 Respiratory Rate 18 07/09/18 14:00 Blood Pressure 109/69 07/09/18 14:00 O2 Sat by Pulse Oximetry (%) - Medication Discharge Medications: Ambulatory Orders traZODone HCL [Desyrel -] 100 mg PO HS #30 tablet 06/04/18 Clindamycin [Cleocin -] 300 mg PO TID #9 capsule 06/07/18 Ferrous Sulfate [Feosol] 325 mg PO TIDCM #90 ud 06/08/18 Latanoprost 0.005% Eye Drops [Xalatan 0.005% Eye Drops -] 1 drop OU HS #1 bottle 06/08/18 Naproxen [Naprosyn -] 500 mg PO BID #60 tablet 06/08/18 Ranitidine [Zantac -] 150 mg PO BID #60 tablet 06/08/18 Timolol 0.5% [Timoptic 0.5%] 1 drop OU BID #1 drops 06/08/18 - Diagnosis (1) Alcohol dependence with uncomplicated withdrawal Status: Acute (2) Cocaine dependence Status: Acute Qualifiers: Substance use status: uncomplicated Qualified Code(s): F14.20 - Cocaine dependence, uncomplicated (3) Disorder of the skin and subcutaneous tissue, unspecified Status: Acute (4) Drug-induced mood disorder Status: Acute (5) Insomnia Status: Acute (6) Depression with anxiety Status: Chronic - AMA Did Patient Leave Against Medical Advice: Yes
[2018-07-09] MEDS ORDERED: chlordiazePOXIDE HCL 10 MG CAPSULE PO SCH (23:00)
== END 2018-07-09 14:38 | disposition left against medical advice (07) | DRG 770 ==
LOC: YASAS 13:14 → Y3N 18:35
PROVIDERS: ADMIT Surgery; ATTEND Surgery
PROC: HZ2ZZZZ Detoxification Services for Substance Abuse Treatment (ICD-10-PCS; principal; 2018-07-06)
DX: F10.230 Alcohol dependence with withdrawal, uncomplicated (principal); F14.20 Cocaine dependence, uncomplicated; F17.210 Nicotine dependence, cigarettes, uncomplicated; F41.8 Other specified anxiety disorders; F19.24 Other psychoactive substance dependence with psychoactive substance-induced mood disorder; N40.0 Benign prostatic hyperplasia without lower urinary tract symptoms; G47.00 Insomnia, unspecified; L98.9 Disorder of the skin and subcutaneous tissue, unspecified; K21.9 Gastro-esophageal reflux disease without esophagitis; H40.2231 Chronic angle-closure glaucoma, bilateral, mild stage; M19.90 Unspecified osteoarthritis, unspecified site; M54.5 Low back pain; M54.2 Cervicalgia; G89.29 Other chronic pain; R26.2 Difficulty in walking, not elsewhere classified; Z99.89 Dependence on other enabling machines and devices; Z86.69 Personal history of other diseases of the nervous system and sense organs; Z88.0 Allergy status to penicillin; Z88.8 Allergy status to other drugs, medicaments and biological substances; Z91.013 Allergy to seafood
CPT/HCPCS: 36415; 80053; 81003; 85027; 86593; 93005; 93010

== ENCOUNTER 2018-09-04 13:35 | Inpatient (IN) | payer OTHER ==
[2018-09-04 18:02] VITALS: BMI 25.9
--- NOTE | 2018-09-04 18:23 | HP ---
CIWA Score - CIWA Score Nausea/Vomitin-Mild Nausea/No Vomiting Muscle Tremors: 1-None Visible, but [place] Anxiety: 1-Mildly Anxious Agitation: 1-Slight > Activity Paroxysmal Sweats: 2 Orientation: 0-Oriented Tacttile Disturbances: 0-None Auditory Disturbances: 0-None Visual Disturbances: 1-Very Mild Sensitivity Headache: 0-None Present CIWA-Ar Total Score: 7 Admission ROS [facility] - HPI Allergies/Adverse Reactions: Allergies Allergy/AdvReac Type Severity Reaction Status Date / Time metoclopramide HCl Allergy Severe Swelling Verified 07/06/18 21:36 [From Reglan] Penicillins Allergy Severe Hives Verified 07/06/18 21:36 shellfish derived Allergy Severe Swelling Verified 07/06/18 21:36 orange juice AdvReac Mild Rash Verified 07/06/18 21:36 History of Present Illness: pt here requesting detox from etoh use , reports 2/5 /day , first age of use 14 , progressively increased , drinking vodka x 5 -6 years , + etoh w/d seizure most recently 3 weeks ago , forgot name of hospital , + blackouts , + falls , phx frx c/l spine 2/2 fall on escalator while intoxicated , does not recall exact date thinks > 10 yrs ago , had spinal fusion C-spine . Patient reports that he starts drinking upon awakening , has tremors otherwise , reports difficulty sleeping if not drinking . Patient is very irritable throughout questioning and exam , hostile towards flex o writer operator . Reports non- compliance with medications and medical appointments.( ophtalmology , podiatry , orthopedics ) yumi 0.031 utox + bzo tobacco : 2 ppd , does not want nrt w/ patch or gum pmhx : OA , asthma , chronic pain , ambulating w/ cane , sinusitis , gerd , bph , left wrist cyst - had f/up w/ ortho did not go for followup pshx : r ankle frx/ orif > 20 yrs ago ( fall on ice when young ) , r wrist laceration after punching glass - Ebola screening Have you traveled outside of the country in the last 21 days: No Have you had contact with anyone from an Ebola affected area: No Have you been sick,other than usual withdrawal symptoms: No Do you have a fever: No - Review of Systems Constitutional: See HPI, Changes in sleep EENT: reports: Blurred Vision, Other (glaucoma) Respiratory: reports: Cough Cardiac: reports: No Symptoms Reported GI: reports: Diarrhea, Nausea, Vomiting : reports: Other (bph) Musculoskeletal: reports: No Symptoms Reported, Back Pain, Joint Stiffness Integumentary: reports: See HPI Neuro: reports: See HPI, Pre-Existing Deficit, Seizure, Tremors, Weakness, Unsteady Gait Hematology: reports: Anemia Psychiatric: reports: Judgement Intact, Orientated x3, Depressed Patient History - Patient Medical History Hx Anemia: No Hx Asthma: No Hx Chronic Obstructive Pulmonary Disease (COPD): No Hx Cancer: No Hx Cardiac Disorders: No Hx Congestive Heart Failure: No Hx Hypertension: No Hx Hypercholesterolemia: No Hx Pacemaker: No HX Cerebrovascular Accident: No Hx Seizures: Yes (ALCOHOL R/T SEIZURE LAST ATTACK LAST YEAR) Hx Dementia: No Hx Diabetes: No Hx Gastrointestinal Disorders: Yes (GASTRIC ULCER) Hx Liver Disease: No Hx Genitourinary Disorders: No Hx Sexually Transmitted Disorders: No Hx Renal Disease (ESRD): No Hx Thyroid Disease: No Hx Human Immunodeficiency Virus (HIV): No (05/14 negative ) Hx Hepatitis C: No Hx Depression: Yes (Denies suicide or violent ideation) Hx Suicide Attempt: No Hx Bipolar Disorder: No Hx Schizophrenia: No - Patient Surgical History Past Surgical History: Yes Hx Neurologic Surgery: Yes (C-SPINE FUSION IN 2016) Hx Cataract Extraction: No Hx Cardiac Surgery: No Hx Lung Surgery: No Hx Breast Surgery: No Hx Breast Biopsy: No Hx Abdominal Surgery: No Hx Appendectomy: No Hx Cholecystectomy: No Hx Genitourinary Surgery: No Hx Section: No Hx Orthopedic Surgery: Yes (Sx bilateral wrist and R ankle sx; ON THE NECK) Other Surgical History: HE FELL DOWN 4 DAYS AGO AND INURED THE SCALP - STAPLED Anesthesia Reaction: No - PPD History Date: 06/05/18 Results: 0 MM - Smoking Cessation Smoking history: Current every day smoker Have you smoked in the past 12 months: Yes Aproximately how many cigarettes per day: 30 Cigars Per Day: 0 Hx Chewing Tobacco Use: No Initiated information on smoking cessation: No - Substances Abused Alcohol Route: Oral Frequency: Daily Amount used: LIQUOR- 3 PINTS, BEER- 1 SIX PACK Age of first use: 14 Date of Last Use: 09/04/18 Marijuana/Hashish Route: Smoking Frequency: 1-3 times last 30 days Amount used: 1 BAG Age of first use: 14 Date of Last Use: 08/25/18 Family Disease History - Family Disease History Family Disease History: Other: Father (alcohol,), Mother (alcohol), Brother (alcohol), Sister (alcohol) Admission Physical Exam [facility] - Vital Signs Vital Signs: Vital Signs - 24 hr 09/04/18 18:01 Temperature 98.2 F Pulse Rate 85 Respiratory 20 Rate Blood Pressure 129/75 - Physical General Appearance: Yes: Disheveled, Mild Distress, Alcohol on Breath HEENTM: Yes: EOMI, Hearing grossly Normal, Normal ENT Inspection, Other (lost dentures, poor dentition, many missing teeth, r eye cataract) Respiratory: Yes: Within Normal Limits Neck: Yes: Within Normal Limits Cardiology: Yes: Within Normal Limits Abdominal: Yes: Within Normal Limits Genitourinary: Yes: Hesitency, Retention, Other (bph) Back: Yes: Surgical Scar, Other (posterior cervical surgical scar) Musculoskeletal: Yes: Back pain, Joint Stiffness, Joint swelling, Muscle weakness Extremities: Yes: Swelling, Inflammation, Other (left wrist cyst) 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: Yes: Fully Oriented, Alert, Depressed Affect, Other (decreased strength R hand r wrist mass non- tender , immobile , soft - chronic , has seen orthopedics, was given followup appointment per pt , he missed the appt.) Integumentary: Yes: Other - Diagnostic (1) Alcohol dependence with uncomplicated withdrawal Current Visit: No Status: Acute [facility]HS Breath Alcohol Content Breath Alcohol Content: 0.031 Urine Drug Screen - Results Drug Screen Negative: No Urine Drug Screen Results: BZO-Benzodiazepines
[2018-09-04] MEDS ORDERED: MENTHOL/PHENOL 1 EACH UD MM PRN (18:32)
[2018-09-04] MEDS ORDERED: guaiFENesin/D-METHORPHAN HB 10 ML UNIT-DOSE CUPS PO PRN (18:32)
[2018-09-04] MEDS ORDERED: LOPERAMIDE HCL 2 MG CAPSULE PO PRN (18:32)
[2018-09-04] MEDS ORDERED: NICOTINE POLACRILEX 2 MG GUM BC PRN (18:32)
[2018-09-04] MEDS ORDERED: chlordiazePOXIDE HCL 25 MG CAPSULE PO PRN (18:32)
[2018-09-04] MEDS ORDERED: ACETAMINOPHEN 325 MG TABLET (FP) PO PRN (18:32)
[2018-09-04] MEDS ORDERED: MAG HYDROX/AL HYDROX/SIMETH 30 ML UNIT-DOSE CUP PO PRN (18:32)
[2018-09-04] MEDS ORDERED: MAGNESIUM CITRATE 300 ML BOTTLE PO PRN (18:32)
[2018-09-04] MEDS ORDERED: IBUPROFEN 400 MG TABLET (FP) PO PRN (18:32)
[2018-09-04] MEDS ORDERED: P-EPHED 60MG/TRIPROLIDI 2.5MG TABLET PO PRN (18:32)
[2018-09-04] MEDS ORDERED: ALBUTEROL SO4 8 GM HFA INHALER IH PRN (18:35)
[2018-09-04] MEDS ORDERED: ALBUTEROL SO4 0.083% IH SOL 2.5 MG/3 ML VIAL.NEB. NEB PRN (18:35)
[2018-09-04] MEDS ORDERED: TAMSULOSIN HCL 0.4 MG CAP.ER.24H (FP) PO ONE ×2 (18:36→23:00)
[2018-09-04] MEDS ORDERED: COLLOIDAL OATMEAL 1 BAR EACH TP PRN (18:53)
[2018-09-04] MEDS: RANITIDINE HCL 150 MG TABLET (FP) PO SCH (23:03)
[2018-09-04] MEDS: THIAMINE HCL 100 MG TABLET (FP) PO SCH (23:03)
[2018-09-04] MEDS: chlordiazePOXIDE HCL 25 MG CAPSULE PO SCH (23:03)
[2018-09-04] MEDS: MICONAZOLE NITRATE 14 GM/TUBE TUBE TP SCH (23:05)
[2018-09-04] MEDS: LATANOPROST 0.005% OPHTH SOLN 2.5ML BOTTLE OU SCH (23:15)
[2018-09-04] MEDS: TIMOLOL 0.5% OPHTHALMIC SOL 5 ML BOTTLE OU SCH (23:21)
[2018-09-05] MEDS: chlordiazePOXIDE HCL 25 MG CAPSULE PO SCH ×4 (05:52→22:36)
[2018-09-05 09:58] LABS: HEMATOCRIT 35.7 % (35.4-49); HEMOGLOBIN 11.4 GM/dL (11.7-16.9); MCH 27.5 pg (25.7-33.7); MEAN PLT VOLUME 9.2 fl (7.5-11.1); PLATELET COUNT 183 K/MM3 (134-434); RBC 4.15 M/mm3 (4.00-5.60); RDW 17.8 % (11.9-15.9); WHITE BLOOD COUNT 4.1 K/mm3 (4.0-10.0)
[2018-09-05] MEDS: PRENATAL VITAMINS W/ FOLIC ACID TABLET (FP) PO SCH (10:03)
[2018-09-05] MEDS: TIMOLOL 0.5% OPHTHALMIC SOL 5 ML BOTTLE OU SCH ×3 (10:04→23:36)
[2018-09-05] MEDS: RANITIDINE HCL 150 MG TABLET (FP) PO SCH ×2 (10:04→22:36)
[2018-09-05] MEDS: FERROUS SO4 325 MG TABLET (FP) PO SCH (10:04)
[2018-09-05] MEDS: MICONAZOLE NITRATE 14 GM/TUBE TUBE TP SCH ×2 (10:05→22:36)
[2018-09-05] MEDS ORDERED: NICOTINE POLACRILEX 2 MG GUM BUC PRN (10:16)
[2018-09-05] MEDS: NICOTINE 21 MG/24 HOURS TOPICAL PATCH TD SCH (10:34)
[2018-09-05] MEDS: PATIENT'S OWN MEDICATION (NON-FORMULARY) (Meloxicam 7.5 MG) PO SCH (10:35)
[2018-09-05 10:38] LABS: ALBUMIN 3.2 g/dl (3.4-5.0); ALK PHOS 75 U/L (45-117); ANION GAP 6 MMOL/L (8-16); BILIRUBIN,TOTAL 0.6 mg/dL (0.2-1); BLOOD UREA NITROGEN 9 mg/dL (7-18); CALCIUM 8.5 mg/dL (8.5-10.1); CHLORIDE 106 mmol/L (98-107); CO2 28 mmol/L (21-32); CREATININE 0.8 mg/dL (0.55-1.3); GLUCOSE,RANDOM 99 mg/dL (74-106); SGOT/AST 20 U/L (15-37); SGPT/ALT 16 U/L (13-61); SODIUM 140 mmol/L (136-145); TOT PROT 6.4 g/dl (6.4-8.2)
[2018-09-05] MEDS: FOLIC ACID 1 MG TABLET (FP) PO SCH (12:11)
[2018-09-05] MEDS: TIOTROPIUM BROMIDE 2.5 MCG (SPIRIVA) RESPIMAT INHALER IH SCH (12:12)
[2018-09-05 14:44] LABS: URINE APPEARANCE CLEAR; URINE BILIRUBIN NEGATIVE (<2.0 mg/dL); URINE COLOR LTYELLOW; URINE GLUCOSE (UA) NEGATIVE (NEGATIVE); URINE KETONE NEGATIVE (NEGATIVE); URINE LEUK ESTERASE NEGATIVE (NEGATIVE); URINE NITRITE NEGATIVE (NEGATIVE); URINE PROTEIN NEGATIVE (NEGATIVE); URINE UROBILINOGEN NEGATIVE mg/dL (0.2-1.0)
--- NOTE | 2018-09-05 14:45 | PN ---
S CIWA - CIWA Score Nausea/Vomitin Muscle Tremors: 4-Moderate,w/Arms Extend Anxiety: 4-Mod. Anxious/Guarded Agitation: 4-Moderately Restless Paroxysmal Sweats: 3 Orientation: 0-Oriented Tacttile Disturbances: 0-None Auditory Disturbances: 0-None Visual Disturbances: 0-None Headache: 0-None Present CIWA-Ar Total Score: 18 BHS Progress Note (SOAP) Subjective: Interrupted sleep, sweating, n/v (vomited once this morning); patient reports smoking cigarettes 2ppd and requesting nicotine patch. Patient reports taking flomax 0.4mg PO q24hr at 08:30, last dose received last night after 11pm Objective: 09/05/18 14:43 Last Vital Signs Temp Pulse Resp BP Pulse Ox 96.6 F L 84 18 100/64 09/05/18 13:38 09/05/18 13:38 09/05/18 13:38 09/05/18 13:38 Laboratory Tests 09/05/18 09/05/18 09/05/18 07:30 07:30 07:30 WBC 4.1 RBC 4.15 Hgb 11.4 L Hct 35.7 MCV 86.0 MCH 27.5 MCHC 32.0 RDW 17.8 H Plt Count 183 MPV 9.2 Sodium 140 Potassium 4.0 Chloride 106 Carbon Dioxide 28 Anion Gap 6 L BUN 9 Creatinine 0.8 Creat Clearance w eGFR > 60 Random Glucose 99 Calcium 8.5 Total Bilirubin 0.6 AST 20 ALT 16 Alkaline Phosphatase 75 Total Protein 6.4 Albumin 3.2 L RPR Titer Nonreactive Labs reviewed Assessment: 09/05/18 14:44 Withdrawal sxs Plan: Continue detox Encouraged PO water intake
--- NOTE | 2018-09-05 14:49 | EKG ---
Test Reason : Blood Pressure : / mmHG Vent. Rate : 081 BPM Atrial Rate : 081 BPM P-R Int : 164 ms QRS Dur : 090 ms QT Int : 388 ms P-R-T Axes : 053 042 051 degrees QTc Int : 450 ms NORMAL SINUS RHYTHM NONSPECIFIC T WAVE ABNORMALITY ABNORMAL ECG WHEN COMPARED WITH ECG OF 06-JUL-2018 23:46, NO SIGNIFICANT CHANGE WAS FOUND Confirmed by RACHEAL MURPHY MD ([id number]) on 09/05/2018 2:49:21 PM Referred By: Confirmed By:RACHEAL MURPHY MD
--- NOTE | 2018-09-05 17:13 | CONSULT ---
[facility] Psychiatric Consult - Data Date of interview: 09/05/18 Admission source: [facility] Identifying data: One of multiple admissions to [facility] for this 57 y/o AA male seeking detoxification treatment for alcohol,cocaine,and marijuana dependence.Patient is single,a father of two (claimed nine dependents in this session),homeless,disabled and supported on SSI benefits. Substance Abuse History: Confirmed by the patient in this interview. Details in current [facility] report : Smoking history: Current every day smoker. Have you smoked in the past 12 months: Yes. Aproximately how many cigarettes per day: 30. Cigars Per Day: 0. Hx Chewing Tobacco Use: No. Initiated information on smoking cessation: No. - Substances Abused. Alcohol. Route: Oral. Frequency: Daily. Amount used: LIQUOR- 3 PINTS, BEER- 1 SIX PACK. Age of first use: 14. Date of Last Use: 09/04/18. Marijuana/Hashish. Route: Smoking. Frequency: 1-3 times last 30 days. Amount used: 1 BAG. Age of first use: 14. Date of Last Use: 08/25/18 Medical History: glaucoma,cataracts (bilateral),withdrawal seizures,peptic ulcer disease,tumor of left wrist,cervical fusion (consequence of injuries sustained in a fall while riding an escalator),BPH (benign prostatic hyperplasia ),past history of orthosurgery for fracture of right ankle (hardware in situ) and surgery for laceration of right wrist (glass). Psychiatric History: Already known history of multiple psychiatric hospitalizations ([facility] and [facility]).Patient is " not sure " about his diagnosis but records indicate schizophrenia versus schizoaffective disorder. Patient states that he used to be on zoloft and haldol. Has been off psychotropic medications (own decision) for several months. Mr Mcrae declines to resume " anything other than trazodone " for insomnia. No contact with psychiatric OPD providers. Patient states that he attempted suicide once (means not clarified). Physical/Sexual Abuse/Trauma History: Patient denies. Additional Comment: Urine Drug Screen Results: BZO-Benzodiazepines.Noted. Mental Status Exam - Mental Status Exam Alert and Oriented to: Time, Place, Person Cognitive Function: Grossly Intact Patient Appearance: Well Groomed Mood: Nervous, Withdrawn Affect: Mood Congruent Patient Behavior: Sedated (mildly sedated, somnolent at times during the interview), Fatigued Speech Pattern: Clear Voice Loudness: Normal Thought Process: Goal Oriented Thought Disorder: Paranoid Ideation (mild during examination ; patient reports this symptom as significant when under the influence of alcohol ; abates during sobriety) Hallucinations: Denies Suicidal Ideation: Denies Homicidal Ideation: Denies Insight/Judgement: Poor Sleep: Poorly, Difficulty falling asleep Appetite: Good Muscle strength/Tone: Normal Gait/Station: Other (walks with a cane) Psychiatric Findings - Problem List ([place] 1, 2,3) (1) Alcohol dependence with uncomplicated withdrawal Current Visit: Yes Status: Acute (2) Nicotine dependence Current Visit: Yes Status: Acute Qualifiers: Nicotine product type: cigarettes Substance use status: in withdrawal Qualified Code(s): F17.213 - Nicotine dependence, cigarettes, with withdrawal (3) Substance induced mood disorder Current Visit: Yes Status: Acute (4) Insomnia Current Visit: Yes Status: Acute - Initial Treatment Plan Initial Treatment Plan: Psychoeducation.Sleep hygiene.Detoxification in progress.Trazodone 50 mg po hs.Patient is made aware of the risk of priapism.Mr Mcrae declines to get back on a neuroleptic or an atypical agent for mood stabilization and reduction of paranoid symptoms. Informed of the risk inherent to refusal of the proposed treatment. Observation. Patient declares his intention/plan to pursue rehabilitation care (preferably at [facility] or at [facility] as an alternate option). Social work team will assist the patient in this objective.
[2018-09-05] MEDS: MELATONIN 5 MG TABLETS PO PRN (22:35)
[2018-09-05] MEDS: THIAMINE HCL 100 MG TABLET (FP) PO SCH (22:36)
[2018-09-05] MEDS: LATANOPROST 0.005% OPHTH SOLN 2.5ML BOTTLE OU SCH (22:37)
[2018-09-05] MEDS: traZODone HCL 50 MG TABLET (FP) PO SCH (22:37)
[2018-09-06] MEDS: chlordiazePOXIDE HCL 25 MG CAPSULE PO SCH ×3 (05:55→17:38)
[2018-09-06] MEDS: MAGNESIUM HYDROX 2400MG/30ML ORAL SUSPENSION 30 ML CUP PO PRN (05:56)
[2018-09-06] MEDS ORDERED: TAMSULOSIN HCL 0.4 MG CAP.ER.24H (FP) PO SCH (08:30)
[2018-09-06] MEDS: FERROUS SO4 325 MG TABLET (FP) PO SCH (10:47)
[2018-09-06] MEDS: RANITIDINE HCL 150 MG TABLET (FP) PO SCH ×2 (10:47→22:44)
[2018-09-06] MEDS: FOLIC ACID 1 MG TABLET (FP) PO SCH (10:47)
[2018-09-06] MEDS: TIMOLOL 0.5% OPHTHALMIC SOL 5 ML BOTTLE OU SCH ×2 (10:48→17:39)
[2018-09-06] MEDS: PRENATAL VITAMINS W/ FOLIC ACID TABLET (FP) PO SCH (10:49)
[2018-09-06] MEDS: PATIENT'S OWN MEDICATION (NON-FORMULARY) (Meloxicam 7.5 MG) PO SCH (10:49)
[2018-09-06] MEDS: TIOTROPIUM BROMIDE 2.5 MCG (SPIRIVA) RESPIMAT INHALER IH SCH (10:49)
[2018-09-06] MEDS: MICONAZOLE NITRATE 14 GM/TUBE TUBE TP SCH ×2 (10:49→22:41)
[2018-09-06] MEDS: NICOTINE 21 MG/24 HOURS TOPICAL PATCH TD SCH (10:49)
[2018-09-06] MEDS ORDERED: TAMSULOSIN HCL 0.4 MG CAP.ER.24H (FP) PO ONE (11:13)
--- NOTE | 2018-09-06 15:33 | PN ---
[facility] CIWA - CIWA Score Nausea/Vomitin-Mild Nausea/No Vomiting Muscle Tremors: 4-Moderate,w/Arms Extend Anxiety: 4-Mod. Anxious/Guarded Agitation: 3 Paroxysmal Sweats: 3 Orientation: 0-Oriented Tacttile Disturbances: 0-None Auditory Disturbances: 0-None Visual Disturbances: 0-None Headache: 1-Very Mild CIWA-Ar Total Score: 16 BHS Progress Note (SOAP) Subjective: N/V, lightheaded, restless, interrupted sleep Objective: 09/06/18 15:32 Last Vital Signs Temp Pulse Resp BP Pulse Ox 96.6 F L 73 18 105/70 09/06/18 13:16 09/06/18 13:16 09/06/18 13:16 09/06/18 13:16 Laboratory Tests 09/05/18 09/05/18 09/05/18 07:30 07:30 07:30 WBC 4.1 RBC 4.15 Hgb 11.4 L Hct 35.7 MCV 86.0 MCH 27.5 MCHC 32.0 RDW 17.8 H Plt Count 183 MPV 9.2 Sodium 140 Potassium 4.0 Chloride 106 Carbon Dioxide 28 Anion Gap 6 L BUN 9 Creatinine 0.8 Creat Clearance w eGFR > 60 Random Glucose 99 Calcium 8.5 Total Bilirubin 0.6 AST 20 ALT 16 Alkaline Phosphatase 75 Total Protein 6.4 Albumin 3.2 L Urine Color Urine Appearance Urine pH Ur Specific [place] Urine Protein Urine Glucose (UA) Urine Ketones Urine Blood Urine Nitrite Urine Bilirubin Urine Urobilinogen Ur Leukocyte Esterase RPR Titer Nonreactive 09/05/18 10:30 WBC RBC Hgb Hct MCV MCH MCHC RDW Plt Count MPV Sodium Potassium Chloride Carbon Dioxide Anion Gap BUN Creatinine Creat Clearance w eGFR Random Glucose Calcium Total Bilirubin AST ALT Alkaline Phosphatase Total Protein Albumin Urine Color Ltyellow Urine Appearance Clear Urine pH 6.0 Ur Specific [place] 1.014 Urine Protein Negative Urine Glucose (UA) Negative Urine Ketones Negative Urine Blood Negative Urine Nitrite Negative Urine Bilirubin Negative Urine Urobilinogen Negative Ur Leukocyte Esterase Negative RPR Titer Labs reviewed Assessment: 09/06/18 15:32 Withdrawal sxs Plan: Continue detox Encouraged PO water intake
[2018-09-06] MEDS: THIAMINE HCL 100 MG TABLET (FP) PO SCH (22:41)
[2018-09-06] MEDS: LATANOPROST 0.005% OPHTH SOLN 2.5ML BOTTLE OU SCH (22:42)
[2018-09-06] MEDS: chlordiazePOXIDE 5 MG CAPSULE PO SCH (22:43)
[2018-09-06] MEDS: traZODone HCL 50 MG TABLET (FP) PO SCH (22:43)
[2018-09-06] MEDS: MELATONIN 5 MG TABLETS PO PRN (22:43)
[2018-09-07] MEDS: chlordiazePOXIDE 5 MG CAPSULE PO SCH ×3 (06:15→17:28)
[2018-09-07] MEDS: TAMSULOSIN HCL 0.4 MG CAP.ER.24H (FP) PO SCH (08:48)
[2018-09-07] MEDS: MICONAZOLE NITRATE 14 GM/TUBE TUBE TP SCH ×2 (10:56→22:25)
[2018-09-07] MEDS: FOLIC ACID 1 MG TABLET (FP) PO SCH (10:56)
[2018-09-07] MEDS: RANITIDINE HCL 150 MG TABLET (FP) PO SCH ×2 (10:56→22:24)
[2018-09-07] MEDS: MAGNESIUM HYDROX 2400MG/30ML ORAL SUSPENSION 30 ML CUP PO PRN (10:56)
[2018-09-07] MEDS: PRENATAL VITAMINS W/ FOLIC ACID TABLET (FP) PO SCH (10:56)
[2018-09-07] MEDS: FERROUS SO4 325 MG TABLET (FP) PO SCH (10:56)
[2018-09-07] MEDS: TIOTROPIUM BROMIDE 2.5 MCG (SPIRIVA) RESPIMAT INHALER IH SCH (10:57)
[2018-09-07] MEDS: PATIENT'S OWN MEDICATION (NON-FORMULARY) (Meloxicam 7.5 MG) PO SCH (10:58)
[2018-09-07] MEDS: NICOTINE 21 MG/24 HOURS TOPICAL PATCH TD SCH (10:59)
[2018-09-07] MEDS: TIMOLOL 0.5% OPHTHALMIC SOL 5 ML BOTTLE OU SCH ×2 (11:00→17:30)
[2018-09-07] MEDS: FLUTICASONE PROP 0.05% 16 GM NASAL SPRAY NS SCH ×2 (11:34→22:25)
--- NOTE | 2018-09-07 17:00 | PN ---
[facility] Progress Note (SOAP) Subjective: Tremor, diarrhea, nightmare for nicotine patch (instructed to remove nicotine patch before going to sleep), chills Objective: 09/07/18 16:59 Last Vital Signs Temp Pulse Resp BP Pulse Ox 96.8 F L 77 18 123/77 09/07/18 14:37 09/07/18 14:37 09/07/18 14:37 09/07/18 14:37 Laboratory Tests 09/05/18 09/05/18 09/05/18 07:30 07:30 07:30 WBC 4.1 RBC 4.15 Hgb 11.4 L Hct 35.7 MCV 86.0 MCH 27.5 MCHC 32.0 RDW 17.8 H Plt Count 183 MPV 9.2 Sodium 140 Potassium 4.0 Chloride 106 Carbon Dioxide 28 Anion Gap 6 L BUN 9 Creatinine 0.8 Creat Clearance w eGFR > 60 Random Glucose 99 Calcium 8.5 Total Bilirubin 0.6 AST 20 ALT 16 Alkaline Phosphatase 75 Total Protein 6.4 Albumin 3.2 L Urine Color Urine Appearance Urine pH Ur Specific [place] Urine Protein Urine Glucose (UA) Urine Ketones Urine Blood Urine Nitrite Urine Bilirubin Urine Urobilinogen Ur Leukocyte Esterase RPR Titer Nonreactive 09/05/18 10:30 WBC RBC Hgb Hct MCV MCH MCHC RDW Plt Count MPV Sodium Potassium Chloride Carbon Dioxide Anion Gap BUN Creatinine Creat Clearance w eGFR Random Glucose Calcium Total Bilirubin AST ALT Alkaline Phosphatase Total Protein Albumin Urine Color Ltyellow Urine Appearance Clear Urine pH 6.0 Ur Specific [place] 1.014 Urine Protein Negative Urine Glucose (UA) Negative Urine Ketones Negative Urine Blood Negative Urine Nitrite Negative Urine Bilirubin Negative Urine Urobilinogen Negative Ur Leukocyte Esterase Negative RPR Titer Labs reviewed Assessment: 09/07/18 16:59 Withdrawal sxs Plan: Continue detox
[2018-09-07] MEDS: THIAMINE HCL 100 MG TABLET (FP) PO SCH (22:24)
[2018-09-07] MEDS: chlordiazePOXIDE HCL 10 MG CAPSULE PO SCH (22:24)
[2018-09-07] MEDS: LATANOPROST 0.005% OPHTH SOLN 2.5ML BOTTLE OU SCH (22:24)
[2018-09-07] MEDS: traZODone HCL 50 MG TABLET (FP) PO SCH (22:24)
[2018-09-07] MEDS: MELATONIN 5 MG TABLETS PO PRN (22:26)
[2018-09-08] MEDS: chlordiazePOXIDE HCL 10 MG CAPSULE PO SCH (05:58)
[2018-09-08] MEDS: FERROUS SO4 325 MG TABLET (FP) PO SCH (10:44)
[2018-09-08] MEDS: TAMSULOSIN HCL 0.4 MG CAP.ER.24H (FP) PO SCH (10:44)
[2018-09-08] MEDS: PRENATAL VITAMINS W/ FOLIC ACID TABLET (FP) PO SCH (10:44)
[2018-09-08] MEDS: FLUTICASONE PROP 0.05% 16 GM NASAL SPRAY NS SCH (10:45)
[2018-09-08] MEDS: PATIENT'S OWN MEDICATION (NON-FORMULARY) (Meloxicam 7.5 MG) PO SCH (10:45)
[2018-09-08] MEDS: MICONAZOLE NITRATE 14 GM/TUBE TUBE TP SCH (10:46)
[2018-09-08] MEDS: TIOTROPIUM BROMIDE 2.5 MCG (SPIRIVA) RESPIMAT INHALER IH SCH (10:49)
[2018-09-08 11:22] VITALS: BP 116/80; PULSE 81; TEMP 98
--- NOTE | 2018-09-08 12:37 | PN ---
S Progress Note (SOAP) Subjective: alert,no complaint Objective: 09/08/18 12:36 Vital Signs Temperature 98.0 F 09/08/18 10:00 Pulse Rate 81 09/08/18 10:00 Respiratory Rate 16 09/08/18 10:00 Blood Pressure 116/80 09/08/18 10:00 O2 Sat by Pulse Oximetry (%) Assessment: 09/08/18 12:36 detox completed,no withdrawal symptom Plan: discharge today,follow up with after care program as arrangement
--- NOTE | 2018-09-08 12:44 | DS ---
[facility] Detox Discharge Summary Admission Date: 09/04/18 Discharge Date: 09/08/18 - History Present History: Alcohol Dependence Additional Comments: follow up with [facility] as arrangement Pertinent Past History: alcohol related seizure syncope nicotine dependence chronic low back pain weight loss insomnia arthritis bph chronic low back pain glaucoma - Physical Exam Results Vital Signs: Vital Signs Temperature 98.0 F 09/08/18 10:00 Pulse Rate 81 09/08/18 10:00 Respiratory Rate 16 09/08/18 10:00 Blood Pressure 116/80 09/08/18 10:00 O2 Sat by Pulse Oximetry (%) Pertinent Admission Physical Exam Findings: withdrawal signs and symptom - Treatment Hospital Course: Detox Protocol Followed, Detoxed Safely, Responded well, Discharged Condition Good, Rehab Referral Accepted Patient has Accepted a Rehab Referral to: [facility] - Medication Discharge Medications: Ambulatory Orders traZODone HCL [Desyrel -] 100 mg PO HS #30 tablet 06/04/18 Clindamycin [Cleocin -] 300 mg PO TID #9 capsule 06/07/18 Ferrous Sulfate [Feosol] 325 mg PO TIDCM #90 ud 06/08/18 Latanoprost 0.005% Eye Drops [Xalatan 0.005% Eye Drops -] 1 drop OU HS #1 bottle 06/08/18 Naproxen [Naprosyn -] 500 mg PO BID #60 tablet 06/08/18 Ranitidine [Zantac -] 150 mg PO BID #60 tablet 06/08/18 Timolol 0.5% [Timoptic 0.5%] 1 drop OU BID #1 drops 06/08/18 Albuterol Sulfate Inhaler - [Ventolin Hfa Inhaler -] 2 inh PO Q6H 09/04/18 Clindamycin [Cleocin -] 600 mg PO Q6H 09/04/18 Meloxicam [Mobic (Nf) -] 7.5 mg PO DAILY 09/04/18 Tamsulosin HCl [Flomax] 0.4 mg PO DAILY 09/04/18 Tiotropium [place] [Spiriva] 1 inh PO DAILY 09/04/18 - Diagnosis (1) Alcohol dependence with uncomplicated withdrawal Current Visit: Yes Status: Acute (2) Insomnia Current Visit: Yes Status: Acute (3) Substance induced mood disorder Current Visit: Yes Status: Acute (4) Alcohol related seizure Current Visit: Yes Status: Chronic (5) Arthritis Current Visit: Yes Status: Chronic (6) Asthma Current Visit: Yes Status: Chronic (7) BPH (benign prostatic hypertrophy) Current Visit: Yes Status: Chronic Qualifiers: Lower urinary tract symptom presence: unspecified whether lower urinary tract symptoms present Qualified Code(s): N40.0 - Benign prostatic hyperplasia without lower urinary tract symptoms (8) Glaucoma of both eyes Current Visit: Yes Status: Chronic Qualifiers: Glaucoma type: primary angle-closure Primary angle closure glaucoma type: chronic Glaucoma stage: mild stage Qualified Code(s): H40.2231 - Chronic angle-closure glaucoma, bilateral, mild stage (9) Syncope Current Visit: No Status: Acute (10) Chronic low back pain Current Visit: No Status: Chronic Qualifiers: Back pain laterality: unspecified Sciatica presence: unspecified whether sciatica present Qualified Code(s): M54.5 - Low back pain; G89.29 - Other chronic pain (11) Use of cane as ambulatory aid Current Visit: No Status: Chronic (12) arthritis of left knee Current Visit: No Status: Chronic - AMA Did Patient Leave Against Medical Advice: No
== END 2018-09-08 13:21 | disposition home or self-care (01) | DRG 775 ==
LOC: YASAS 13:35 → Y3N 18:51
PROC: HZ2ZZZZ Detoxification Services for Substance Abuse Treatment (ICD-10-PCS; principal; 2018-09-04)
DX: F10.230 Alcohol dependence with withdrawal, uncomplicated (principal); F12.20 Cannabis dependence, uncomplicated; F19.24 Other psychoactive substance dependence with psychoactive substance-induced mood disorder; F32.9 Major depressive disorder, single episode, unspecified; D64.9 Anemia, unspecified; G47.00 Insomnia, unspecified; G40.509 Epileptic seizures related to external causes, not intractable, without status epilepticus; K21.9 Gastro-esophageal reflux disease without esophagitis; J45.909 Unspecified asthma, uncomplicated; M12.9 Arthropathy, unspecified; M13.862 Other specified arthritis, left knee; N40.0 Benign prostatic hyperplasia without lower urinary tract symptoms; H40.2231 Chronic angle-closure glaucoma, bilateral, mild stage; M54.5 Low back pain; G89.29 Other chronic pain; R26.89 Other abnormalities of gait and mobility; Z99.89 Dependence on other enabling machines and devices
CPT/HCPCS: 36415; 80053; 81003; 85027; 86593; 93005; 93010

== ENCOUNTER 2018-10-17 16:03 | Inpatient (IN) | payer OTHER ==
[2018-10-17 18:58] VITALS: BMI 26.9
--- NOTE | 2018-10-17 21:14 | HP ---
"CIWA Score - Admission Criteria [facility] Guidelines: Admission for Medically Managed Detox: Requires at least one of the followin. CIWA greater than 12 2. Seizures within the past 24 hours 3. Delirium tremens within the past 24 hours 4. Hallucinations within the past 24 hours 5. Acute intervention needed for co occurring medical disorder 6. Acute intervention needed for co occurring psychiatric disorder 7. Severe withdrawal that cannot be handled at a lower level of care (continued vomiting, continued diarrhea, abnormal vital signs) requiring intravenous medication and/or fluids 8. Admission [facility] Chief Complaint: States here for rehab. Allergies/Adverse Reactions: Allergies Allergy/AdvReac Type Severity Reaction Status Date / Time metoclopramide HCl Allergy Severe Swelling Verified 10/17/18 20:50 [From Reglan] Penicillins Allergy Severe Hives Verified 10/17/18 20:50 shellfish derived Allergy Severe Swelling Verified 10/17/18 20:50 orange juice AdvReac Mild Rash Verified 10/17/18 20:50 History of Present Illness: was detoxed at [facility] and discharged today and transported to [facility] for rehab. [facility] was detoxed off alcohol. Hx: Alcohol use disorder since age 14. Longest period of sobriety was 2 years in 2015. Hx alcohol related seizures and blackouts. Past hx of cocaine and THC use. Hx bone disorders which includes spinal fusions, arthritis w/chronic knee and ankle pain. Uses a cane for support w/ walking. Hx: Gastric ulcers and currently c/o acid reflux. Has glaucoma and cataract disorder. Search Terms: Anderson Mcrae, 1960 Search Date: 10/17/2018 09:24:32 PM The Drug Utilization Report below displays all of the controlled substance prescriptions, if any, that your patient has filled in the last twelve months. The information displayed on this report is compiled from pharmacy submissions to the Department, and accurately reflects the information as submitted by the pharmacies. This report was requested by: Shara Rodriguez | Reference #: [id number] Others' Prescriptions Patient Name: Anderson Mcrae Date: 1960 Address: [address] [address] Sex: Male Rx Written Rx Dispensed Drug Quantity Days Supply Prescriber Name 03/06/2018 03/06/2018 oxycodone-acetaminophen 5-325 mg tablet 30 5 [facility] [place] Exam Limitations: No Limitations - Ebola screening Have you traveled outside of the country in the last 21 days: No (N) Have you had contact with anyone from an Ebola affected area: No Have you been sick,other than usual withdrawal symptoms: No Do you have a fever: No - Review of Systems Constitutional: Changes in sleep (Difficulty sleeping - Takes Trazodone.) EENT: reports: Cataracts, Blurred Vision, Dental Problems (Broken and missing teeth.), Other (glaucoma) Respiratory: reports: SOB with Exertion Cardiac: reports: Chest Pain (r/t acid reflux), Irregular Heart Rate GI: reports: Constipated, Nausea, Indigestion (Acid Reflux), Other (a lot of gas ) : reports: Frequency (of small amounts of urination w/ hesitentcy. Uncontrolled flow) Musculoskeletal: reports: Joint Pain (Arthritic pain in knees and neck.), Joint Stiffness (Stiff neck r/t cervical infusion) Integumentary: reports: Other (Chronic (L) wrist cyst w/ intermittent sharp pain.) Neuro: reports: Seizure (Had 2 weeks ago), Tremors (very mild tremors) Endocrine: reports: No Symptoms Reported Hematology: reports: No Symptoms Reported Psychiatric: reports: Judgement Intact, Agitated, Anxious, Disorientated (Knows month and year, not specific date) Patient History - Patient Medical History Hx Anemia: No Hx Asthma: No Hx Chronic Obstructive Pulmonary Disease (COPD): No Hx Cancer: No Hx Cardiac Disorders: No Hx Congestive Heart Failure: No Hx Hypertension: No Hx Hypercholesterolemia: No Hx Pacemaker: No HX Cerebrovascular Accident: No Hx Seizures: Yes (ALCOHOL R/T SEIZURE LAST ATTACK 3 weeks ago. ) Hx Dementia: No Hx Diabetes: No Hx Gastrointestinal Disorders: Yes (GASTRIC ULCER) Hx Liver Disease: No Hx Genitourinary Disorders: No Hx Sexually Transmitted Disorders: No Hx Renal Disease (ESRD): No Hx Thyroid Disease: No Hx Human Immunodeficiency Virus (HIV): No (05/14 negative ) Hx Hepatitis C: No Hx Depression: Yes (Denies suicide or violent ideation) Hx Suicide Attempt: No Hx Bipolar Disorder: No Hx Schizophrenia: No - Patient Surgical History Past Surgical History: Yes Hx Neurologic Surgery: Yes (C-SPINE FUSION IN 2016) Hx Cataract Extraction: No Hx Cardiac Surgery: No Hx Lung Surgery: No Hx Breast Surgery: No Hx Breast Biopsy: No Hx Abdominal Surgery: No Hx Appendectomy: No Hx Cholecystectomy: No Hx Genitourinary Surgery: No Hx Section: No Hx Orthopedic Surgery: Yes (Sx bilateral wrist and R ankle sx; ON THE NECK) Other Surgical History: HE FELL DOWN 4 DAYS AGO AND INURED THE SCALP - STAPLED Anesthesia Reaction: No - PPD History Previous Implant?: Yes Documented Results: Negative w/proof Implanted On Prior [facility] Admission?: Yes Date: 06/05/18 Results: 0 MM PPD to be Administered?: No - Smoking Cessation Smoking history: Current every day smoker Have you smoked in the past 12 months: Yes Aproximately how many cigarettes per day: 30 Cigars Per Day: 0 Hx Chewing Tobacco Use: No Initiated information on smoking cessation: Yes 'Breaking Loose' booklet given: 10/17/18 - Substance & Tx. History Hx Alcohol Use: Yes Hx Substance Use: Yes Substance Use Type: Alcohol Hx Substance Use Treatment: Yes (detox, rehabs) - Substances Abused Alcohol Route: Oral Frequency: Daily Amount used: 3 pints Vodka daily Age of first use: 14 Date of Last Use: 10/13/18 (Was in detox at [facility]) Family Disease History - Family Disease History Family Disease History: Other: Father (alcohol,), Mother (alcohol), Brother (alcohol), Sister (alcohol) Admission Physical Exam [facility] - Vital Signs Vital Signs: Vital Signs - 24 hr 10/17/18 18:57 Temperature 97.0 F L Pulse Rate 80 Respiratory 18 Rate Blood Pressure 117/81 - Physical General Appearance: Yes: Appropriately Dressed, Anxious HEENTM: Yes: EOMI, Hearing grossly Normal, Normocephalic, Normal Voice, MARISOL Respiratory: Yes: Chest Non-Tender, Lungs Clear, No Respiratory Distress Neck: Yes: No masses,lesions,Nodules, Supple Breast: Yes: Breast Exam Deferred Cardiology: Yes: Regular Rhythm, Regular Rate, S1, S2 Abdominal: Yes: Normal Bowel Sounds, Non Tender, Flat, Soft Genitourinary: Yes: Frequency, Hesitency Back: Yes: Normal Inspection Musculoskeletal: Yes: Gait Steady (with use of a cane), Joint Stiffness (Neck, back, legs), Other (Soft mass (L) inner wrist. Non-tender.) Extremities: Yes: Normal Capillary Refill, Tremors (very mild tremors when arms elevated), Other (Soft) 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: Yes: slabber light II-XII NML intact, Alert, Motor Strength 5/5 Integumentary: Yes: Normal Color, Dry, Warm Lymphatic: Yes: Within Normal Limits - Diagnostic (1) Alcohol dependence in early full remission Current Visit: Yes Status: Acute (2) Nicotine dependence Current Visit: Yes Status: Chronic Qualifiers: Nicotine product type: cigarettes Substance use status: in withdrawal Qualified Code(s): F17.213 - Nicotine dependence, cigarettes, with withdrawal (3) BPH (benign prostatic hypertrophy) Current Visit: Yes Status: Chronic Qualifiers: Lower urinary tract symptom presence: unspecified whether lower urinary tract symptoms present Qualified Code(s): N40.0 - Benign prostatic hyperplasia without lower urinary tract symptoms Comment: Has not seen a provider since initiation of flomax (4) Gastroesophageal reflux disease Current Visit: Yes Status: Chronic (5) Glaucoma of both eyes Current Visit: Yes Status: Chronic Qualifiers: Glaucoma type: primary angle-closure Primary angle closure glaucoma type: chronic Glaucoma stage: mild stage Qualified Code(s): H40.2231 - Chronic angle-closure glaucoma, bilateral, mild stage Comment: Last eye exam September 2018 (6) Personal history of other diseases of the musculoskeletal system and connective tissue Current Visit: Yes Status: Chronic Comment: Spinal fusions, arthritis, knee pain Cleared for Admission [facility] - Detox or Rehab Claeared for Rehab Admission: Yes [facility] Breath Alcohol Content Breath Alcohol Content: 0 Urine Drug Screen - Results Drug Screen Negative: No Urine Drug Screen Results: MET-Methamphetamine, BZO-Benzodiazepines Inpatient Rehab Admission - Initial Determination Are CD services needed?: Yes Free of communicable disease: Yes Not in need of hospitalization: Yes - Rehab Admission Criteria Previous failed treatment: Yes Poor recovery environment: Yes Comorbidities: Yes Lacks judgement: No Patient is meeting Inpatient Rehab admission criteria:: Yes"
[2018-10-17] MEDS ORDERED: MENTHOL/PHENOL 1 EACH UD MM PRN (22:22)
[2018-10-17] MEDS ORDERED: MAG HYDROX/AL HYDROX/SIMETH 30 ML UNIT-DOSE CUP PO PRN (22:22)
[2018-10-17] MEDS ORDERED: NICOTINE POLACRILEX 2 MG GUM BC PRN (22:22)
[2018-10-17] MEDS ORDERED: LOPERAMIDE HCL 2 MG CAPSULE PO PRN (22:22)
[2018-10-17] MEDS ORDERED: MAGNESIUM HYDROX 2400MG/30ML ORAL SUSPENSION 30 ML CUP PO PRN (22:22)
[2018-10-18] MEDS: RANITIDINE HCL 150 MG TABLET (FP) PO SCH ×3 (01:39→21:11)
[2018-10-18 01:49] LABS: URINE APPEARANCE CLEAR; URINE BILIRUBIN NEGATIVE (<2.0 mg/dL); URINE COLOR YELLOW; URINE GLUCOSE (UA) NEGATIVE (NEGATIVE); URINE KETONE NEGATIVE (NEGATIVE); URINE LEUK ESTERASE NEGATIVE (NEGATIVE); URINE NITRITE NEGATIVE (NEGATIVE); URINE PROTEIN NEGATIVE (NEGATIVE); URINE UROBILINOGEN NEGATIVE mg/dL (0.2-1.0)
[2018-10-18] MEDS: NAPROXEN 375 MG TABLET (FP) PO SCH ×3 (01:53→21:11)
[2018-10-18] MEDS ORDERED: TIMOLOL 0.5% OPHTHALMIC SOL 5 ML BOTTLE OU SCH (07:00)
[2018-10-18] MEDS: GABAPENTIN 400 MG CAPSULE (FP) PO SCH ×3 (07:16→21:11)
[2018-10-18] MEDS: PRENATAL VITAMINS W/ FOLIC ACID TABLET (FP) PO SCH (09:35)
[2018-10-18] MEDS: TAMSULOSIN HCL 0.4 MG CAP PO SCH (09:35)
[2018-10-18] MEDS: TIMOLOL 0.5% OPHTHALMIC SOL 5 ML BOTTLE OU SCH ×2 (09:37→17:37)
[2018-10-18] MEDS: NICOTINE 21 MG/24 HOURS TOPICAL PATCH TD SCH (09:37)
[2018-10-18] MEDS: CLOTRIMAZOLE 1%TOPICAL SOLUTION 30 ML BOTTLE TP SCH ×2 (09:38→21:13)
[2018-10-18 10:43] LABS: HEMATOCRIT 37.7 % (35.4-49); MCH 27.7 pg (25.7-33.7); MCHC 31.9 g/dl (32.0-35.9); MEAN CELL VOLUME 86.9 fl (80-96); MEAN PLT VOLUME 9.3 fl (7.5-11.1); PLATELET COUNT 177 K/MM3 (134-434); RBC 4.34 M/mm3 (4.00-5.60); WHITE BLOOD COUNT 4.7 K/mm3 (4.0-10.0)
[2018-10-18 11:03] LABS: ALBUMIN 3.7 g/dl (3.4-5.0); ALK PHOS 73 U/L (45-117); ANION GAP 9 MMOL/L (8-16); BILIRUBIN,TOTAL 0.4 mg/dL (0.2-1); BLOOD UREA NITROGEN 13 mg/dL (7-18); CALCIUM 8.5 mg/dL (8.5-10.1); CHLORIDE 105 mmol/L (98-107); CO2 27 mmol/L (21-32); CREATININE 0.9 mg/dL (0.55-1.3); GLUCOSE,RANDOM 81 mg/dL (74-106); POTASSIUM 4.3 mmol/L (3.5-5.1); SGOT/AST 15 U/L (15-37); SGPT/ALT 19 U/L (13-61); SODIUM 141 mmol/L (136-145); TOT PROT 6.8 g/dl (6.4-8.2)
[2018-10-18] MEDS: FLUTICASONE PROP 0.05% 16 GM NASAL SPRAY NS SCH (21:12)
[2018-10-18] MEDS: THIAMINE HCL 100 MG TABLET (FP) PO SCH (21:12)
[2018-10-18] MEDS: LATANOPROST 0.005% OPHTH SOLN 2.5ML BOTTLE OU SCH (21:14)
[2018-10-19] MEDS: GABAPENTIN 400 MG CAPSULE (FP) PO SCH ×3 (06:33→21:10)
[2018-10-19] MEDS: TAMSULOSIN HCL 0.4 MG CAP PO SCH (07:51)
[2018-10-19] MEDS: RANITIDINE HCL 150 MG TABLET (FP) PO SCH ×2 (09:36→21:10)
[2018-10-19] MEDS: ACETAMINOPHEN 325 MG TABLET (FP) PO PRN (09:36)
[2018-10-19] MEDS: NICOTINE 21 MG/24 HOURS TOPICAL PATCH TD SCH (09:36)
[2018-10-19] MEDS: PRENATAL VITAMINS W/ FOLIC ACID TABLET (FP) PO SCH (09:36)
[2018-10-19] MEDS: CLOTRIMAZOLE 1%TOPICAL SOLUTION 30 ML BOTTLE TP SCH ×2 (09:37→21:17)
[2018-10-19] MEDS: FLUTICASONE PROP 0.05% 16 GM NASAL SPRAY NS SCH ×2 (09:37→21:13)
[2018-10-19] MEDS: TIMOLOL 0.5% OPHTHALMIC SOL 5 ML BOTTLE OU SCH ×2 (09:38→18:51)
[2018-10-19] MEDS: NAPROXEN 375 MG TABLET (FP) PO SCH ×2 (09:40→21:12)
--- NOTE | 2018-10-19 11:24 | HP ---
Psychiatrist Admission - Data Date of interview: 10/19/18 Admission source: [facility]. Referral from [place]. Identifying data: This is one of multiple admissions to [facility] for this 57 y/ o AA male, discharged from [place] and sent to [facility], [place] for rehabilitation treatment (alcohol dependence). Patient is single, a father of two, homeless, disabled and supported on SSI benefits. Medical History: History of multiple co-morbidities : GERD, arthritis, glaucoma , cataracts (bilateral), withdrawal seizures, peptic ulcer disease, cyst of left wrist, cervical fusion (consequence of injuries sustained in a fall while riding an escalator 3-4 years ago), BPH (benign prostatic hyperplasia), past history of orthosurgery for fracture of right ankle (hardware in situ) and surgery for laceration of right wrist (glass). Psychiatric History: History of multiple psychiatric hospitalizations ([facility], [facility], [facility], [facility] in [place]).Patient argues that he does not have a psychiatric illness but he also aknowledges that he has been suspicious of people over the years. Records indicate the diagnosis of schizoaffective disorder.Treated, in the past, with neuroleptics. Mr Clementina is known for his chronic non-adherence to medications + OPD care. he only agrees to take trazodone for " my relaxation " and insomnia. No contact with psychiatric OPD care providers. Patient denies history of suicide attempts. Physical/Sexual Abuse/Trauma History: Patient denies. Additional Comment: Profile of substance abuse : Smoking history: Current every day smoker. Have you smoked in the past 12 months: Yes. Aproximately how many cigarettes per day: 30. Cigars Per Day: 0. Hx Chewing Tobacco Use: No. Initiated information on smoking cessation: Yes. 'Breaking Loose' booklet given : 10/17/18. - Substance & Tx. History. Hx Alcohol Use: Yes. Hx Substance Use : Yes. Substance Use Type: Alcohol. Hx Substance Use Treatment: Yes (detox, rehabs). - Substances Abused. Alcohol. Route: Oral. Frequency: Daily. Amount used: 3 pints Vodka daily. Age of first use: 14. Date of Last Use: (Was in detox at [place]). Urine Drug Screen Results: MET-Methamphetamine , BZO-Benzodiazepines. Noted. patient declares that he has stopped using crack and marihuana for past six months. Vital Signs: Vital Signs - 24 hr 10/19/18 10/19/18 10/19/18 00:30 03:30 06:58 Temperature 97.7 F Pulse Rate 71 Respiratory 18 18 18 Rate Blood Pressure 141/80 Allergies/Adverse Reactions: Allergies Allergy/AdvReac Type Severity Reaction Status Date / Time metoclopramide HCl Allergy Severe Swelling Verified 10/17/18 20:50 [From Reglan] Penicillins Allergy Severe Hives Verified 10/17/18 20:50 shellfish derived Allergy Severe Swelling Verified 10/17/18 20:50 orange juice AdvReac Mild Rash Verified 10/17/18 20:50 - Substance Abuse/Tx History Hx Alcohol Use: Yes (since age 14) Hx Substance Use: Yes (alcohol ) Substance Use Type: Alcohol (consumes 2-3 pints of vodka daily ; frequent intoxications, falls and withdrawal-related seizures) Hx Substance Use Treatment: Yes Mental Status Exam - Mental Status Exam Alert and Oriented to: Time, Place, Person Cognitive Function: Grossly Intact Patient Appearance: Well Groomed (stiff ; not able to move head due to spinal fusions) Mood: Withdrawn Affect: Appropriate, Normal Range Patient Behavior: Fatigued, Talkative, Appropriate, Cooperative Speech Pattern: Clear (slow, coherent speech) Voice Loudness: Normal Thought Process: Goal Oriented Thought Disorder: Paranoid Ideation (mild. Prefers to stay alone out of fear that he might be assaulted ; occurrs mostly during intoxicated states) Hallucinations: Denies Suicidal Ideation: Denies Homicidal Ideation: Denies Insight/Judgement: Fair Sleep: Poorly, Difficulty falling asleep Appetite: Good Gait/Station: Spastic (ambulates with a cane) Psychiatric Findings - Problem List ([place] 1, 2,3) (1) Alcohol dependence Current Visit: Yes Status: Acute (2) Nicotine dependence Current Visit: Yes Status: Acute Qualifiers: Nicotine product type: cigarettes Substance use status: in withdrawal Qualified Code(s): F17.213 - Nicotine dependence, cigarettes, with withdrawal (3) Substance induced mood disorder Current Visit: Yes Status: Acute (4) Paranoid schizophrenia Current Visit: No Status: Chronic Comment: According to records. Diagnosis rejected by the patient. Non-adherent to treatment. Lost to follow up. (5) Insomnia Current Visit: Yes Status: Acute Qualifiers: Insomnia type: unspecified Qualified Code(s): G47.00 - Insomnia, unspecified (6) Non-compliance with treatment Current Visit: Yes Status: Chronic - Initial Treatment Plan Initial Treatment Plan: Psychoeducation. Sleep hygiene. Detoxification. Supportive, group and individual therapy. AA meetings. Discuused : methods of relapse prevention. Patient expresses no interest in opioid agonist therapy or 12 step doctrine. trazodone 100 mg po hs. Resumed at patient's request. Made aware of potential for priapism.Mr Mcrae is in agreement with this plan of care. Falls precautions. Observation.
[2018-10-19] MEDS ORDERED: ALBUTEROL SO4 0.083% IH SOL 2.5 MG/3 ML VIAL.NEB. NEB PRN (16:24)
[2018-10-19] MEDS: THIAMINE HCL 100 MG TABLET (FP) PO SCH (21:10)
[2018-10-19] MEDS: traZODone HCL 100 MG TABLET (FP) PO SCH (21:11)
[2018-10-19] MEDS: ALBUTEROL SO4 8 GM HFA INHALER IH PRN (21:14)
[2018-10-19] MEDS: LATANOPROST 0.005% OPHTH SOLN 2.5ML BOTTLE OU SCH (21:17)
[2018-10-20] MEDS: GABAPENTIN 400 MG CAPSULE (FP) PO SCH ×3 (06:35→21:08)
[2018-10-20] MEDS: TAMSULOSIN HCL 0.4 MG CAP PO SCH (07:35)
[2018-10-20] MEDS: NICOTINE 21 MG/24 HOURS TOPICAL PATCH TD SCH (09:46)
[2018-10-20] MEDS: PRENATAL VITAMINS W/ FOLIC ACID TABLET (FP) PO SCH (09:46)
[2018-10-20] MEDS: FLUTICASONE PROP 0.05% 16 GM NASAL SPRAY NS SCH ×2 (09:48→21:10)
[2018-10-20] MEDS: RANITIDINE HCL 150 MG TABLET (FP) PO SCH ×2 (09:48→21:08)
[2018-10-20] MEDS: TIMOLOL 0.5% OPHTHALMIC SOL 5 ML BOTTLE OU SCH ×2 (09:48→17:48)
[2018-10-20] MEDS: CLOTRIMAZOLE 1%TOPICAL SOLUTION 30 ML BOTTLE TP SCH ×3 (09:51→22:20)
[2018-10-20] MEDS: ALBUTEROL SO4 8 GM HFA INHALER IH PRN ×2 (09:52→21:10)
[2018-10-20] MEDS: NAPROXEN 375 MG TABLET (FP) PO SCH ×2 (14:33→21:09)
[2018-10-20] MEDS: THIAMINE HCL 100 MG TABLET (FP) PO SCH (21:07)
[2018-10-20] MEDS: LATANOPROST 0.005% OPHTH SOLN 2.5ML BOTTLE OU SCH (21:08)
[2018-10-20] MEDS: traZODone HCL 100 MG TABLET (FP) PO SCH (21:08)
[2018-10-21] MEDS: GABAPENTIN 400 MG CAPSULE (FP) PO SCH ×3 (06:33→22:06)
[2018-10-21] MEDS: TAMSULOSIN HCL 0.4 MG CAP PO SCH (07:39)
[2018-10-21] MEDS: MAGNESIUM CITRATE 300 ML BOTTLE PO PRN (08:57)
[2018-10-21] MEDS: FLUTICASONE PROP 0.05% 16 GM NASAL SPRAY NS SCH ×2 (09:34→22:09)
[2018-10-21] MEDS: TIMOLOL 0.5% OPHTHALMIC SOL 5 ML BOTTLE OU SCH ×2 (09:35→18:22)
[2018-10-21] MEDS: PRENATAL VITAMINS W/ FOLIC ACID TABLET (FP) PO SCH (09:35)
[2018-10-21] MEDS: RANITIDINE HCL 150 MG TABLET (FP) PO SCH ×2 (09:36→22:06)
[2018-10-21] MEDS: NAPROXEN 375 MG TABLET (FP) PO SCH ×2 (09:36→22:06)
[2018-10-21] MEDS: NICOTINE 21 MG/24 HOURS TOPICAL PATCH TD SCH (09:37)
[2018-10-21] MEDS: CLOTRIMAZOLE 1%TOPICAL SOLUTION 30 ML BOTTLE TP SCH ×2 (09:37→22:08)
[2018-10-21] MEDS: ACETAMINOPHEN 325 MG TABLET (FP) PO PRN (18:24)
[2018-10-21] MEDS: THIAMINE HCL 100 MG TABLET (FP) PO SCH (22:06)
[2018-10-21] MEDS: traZODone HCL 100 MG TABLET (FP) PO SCH (22:07)
[2018-10-21] MEDS: LATANOPROST 0.005% OPHTH SOLN 2.5ML BOTTLE OU SCH (22:09)
[2018-10-21] MEDS: MELATONIN 5 MG TABLETS PO PRN (23:25)
[2018-10-22] MEDS: GABAPENTIN 400 MG CAPSULE (FP) PO SCH ×3 (06:36→21:14)
[2018-10-22] MEDS: TAMSULOSIN HCL 0.4 MG CAP PO SCH (08:39)
[2018-10-22] MEDS: TRIMETHOBENZAMIDE HCL 200MG/2ML INJ IM PRN (08:39)
[2018-10-22] MEDS: RANITIDINE HCL 150 MG TABLET (FP) PO SCH ×2 (10:05→21:14)
[2018-10-22] MEDS: PRENATAL VITAMINS W/ FOLIC ACID TABLET (FP) PO SCH (10:05)
[2018-10-22] MEDS: CLOTRIMAZOLE 1%TOPICAL SOLUTION 30 ML BOTTLE TP SCH ×2 (10:06→21:16)
[2018-10-22] MEDS: NICOTINE 21 MG/24 HOURS TOPICAL PATCH TD SCH (10:06)
[2018-10-22] MEDS: TIMOLOL 0.5% OPHTHALMIC SOL 5 ML BOTTLE OU SCH ×2 (10:07→19:39)
[2018-10-22] MEDS: FLUTICASONE PROP 0.05% 16 GM NASAL SPRAY NS SCH ×2 (10:07→22:10)
[2018-10-22] MEDS: NAPROXEN 375 MG TABLET (FP) PO SCH ×2 (10:08→22:16)
[2018-10-22] MEDS ORDERED: SODIUM PHOSPHATE/NA BIPHOS 133 ML ENEMA PR ONE (10:24)
--- NOTE | 2018-10-22 10:37 | PN ---
S Progress Note Note: PT C/O CONSTIPATION, KNEE PAIN EPIGASTIRC DISCOMFORT AND ACID REFLUX(BURNING IN THROAT). REPORTS USE OF MOM AND CITROMA BU WITH PARTIAL EVACUATION. REQUESTING FURTHER CLEAN OUT HE IS UNABLE TO EAT WITHOUT REGURGITATING THE FOOD. PT ALSO REPORTS HX ARTHRITIS OF KNEES AND HAND JOINTS AND A HX OF SPINAL FUSION. Vital Signs 10/22/18 10/22/18 03:30 06:42 Temperature 97.7 F Pulse Rate 74 Respiratory 18 18 Rate Blood Pressure 134/81 ABDOMEN: SOFT, NOT DISTENDED. IMPRESSION:CONSTIPATION CHRONIC BACK PAIN ARTHRITIS PLAN:FLEET ENEMA X 1 COLACE 100 MG PO TID LIDOCAINE PATCH 5% APPLY TO LOWER AND UPPER BACK DIRECTED
[2018-10-22] MEDS ORDERED: LIDOCAINE 5% TOPICAL PATCH TP ONE (11:02)
[2018-10-22] MEDS ORDERED: COLLOIDAL OATMEAL 1 BAR EACH TP PRN (11:03)
[2018-10-22] MEDS: DOCUSATE SODIUM 100 MG CAPSULE (FP) PO SCH ×2 (14:11→21:14)
[2018-10-22] MEDS: THIAMINE HCL 100 MG TABLET (FP) PO SCH (21:14)
[2018-10-22] MEDS: traZODone HCL 100 MG TABLET (FP) PO SCH (21:14)
[2018-10-22] MEDS ORDERED: LIDOCAINE PATCH REMOVAL MC SCH (22:00)
[2018-10-22] MEDS: LATANOPROST 0.005% OPHTH SOLN 2.5ML BOTTLE OU SCH (22:11)
[2018-10-22] MEDS: LIDOCAINE PATCH REMOVAL MC SCH (22:12)
[2018-10-23] MEDS: DOCUSATE SODIUM 100 MG CAPSULE (FP) PO SCH ×3 (06:31→21:19)
[2018-10-23] MEDS: GABAPENTIN 400 MG CAPSULE (FP) PO SCH ×3 (06:31→21:16)
[2018-10-23] MEDS: TAMSULOSIN HCL 0.4 MG CAP PO SCH (07:45)
[2018-10-23] MEDS: TIMOLOL 0.5% OPHTHALMIC SOL 5 ML BOTTLE OU SCH ×2 (10:05→19:30)
[2018-10-23] MEDS: LIDOCAINE 5% TOPICAL PATCH TP SCH (10:06)
[2018-10-23] MEDS: FLUTICASONE PROP 0.05% 16 GM NASAL SPRAY NS SCH ×2 (10:06→21:18)
[2018-10-23] MEDS: PRENATAL VITAMINS W/ FOLIC ACID TABLET (FP) PO SCH (10:07)
[2018-10-23] MEDS: RANITIDINE HCL 150 MG TABLET (FP) PO SCH ×2 (10:07→21:17)
[2018-10-23] MEDS: CLOTRIMAZOLE 1%TOPICAL SOLUTION 30 ML BOTTLE TP SCH ×2 (10:07→21:19)
[2018-10-23] MEDS: NICOTINE 21 MG/24 HOURS TOPICAL PATCH TD SCH (10:07)
[2018-10-23] MEDS: NAPROXEN 375 MG TABLET (FP) PO SCH ×2 (10:58→21:17)
[2018-10-23] MEDS: MAGNESIUM CITRATE 300 ML BOTTLE PO PRN (11:00)
[2018-10-23] MEDS: LATANOPROST 0.005% OPHTH SOLN 2.5ML BOTTLE OU SCH (21:15)
[2018-10-23] MEDS: traZODone HCL 100 MG TABLET (FP) PO SCH (21:17)
[2018-10-23] MEDS: MELATONIN 5 MG TABLETS PO PRN (21:19)
[2018-10-23] MEDS: LIDOCAINE PATCH REMOVAL MC SCH (21:19)
[2018-10-23] MEDS: THIAMINE HCL 100 MG TABLET (FP) PO SCH (21:20)
[2018-10-24] MEDS: DOCUSATE SODIUM 100 MG CAPSULE (FP) PO SCH ×3 (06:26→21:01)
[2018-10-24] MEDS: GABAPENTIN 400 MG CAPSULE (FP) PO SCH ×3 (06:27→21:01)
[2018-10-24] MEDS: TAMSULOSIN HCL 0.4 MG CAP PO SCH (07:38)
[2018-10-24] MEDS: NAPROXEN 375 MG TABLET (FP) PO SCH ×2 (09:41→21:01)
[2018-10-24] MEDS: PRENATAL VITAMINS W/ FOLIC ACID TABLET (FP) PO SCH (09:41)
[2018-10-24] MEDS: RANITIDINE HCL 150 MG TABLET (FP) PO SCH ×2 (09:42→21:01)
[2018-10-24] MEDS: TIMOLOL 0.5% OPHTHALMIC SOL 5 ML BOTTLE OU SCH ×2 (09:42→17:55)
[2018-10-24] MEDS: FLUTICASONE PROP 0.05% 16 GM NASAL SPRAY NS SCH ×2 (09:43→22:13)
[2018-10-24] MEDS: LIDOCAINE 5% TOPICAL PATCH TP SCH (09:44)
[2018-10-24] MEDS: CLOTRIMAZOLE 1%TOPICAL SOLUTION 30 ML BOTTLE TP SCH ×2 (09:44→21:03)
[2018-10-24] MEDS: NICOTINE 21 MG/24 HOURS TOPICAL PATCH TD SCH (10:39)
[2018-10-24] MEDS: THIAMINE HCL 100 MG TABLET (FP) PO SCH (21:01)
[2018-10-24] MEDS: traZODone HCL 100 MG TABLET (FP) PO SCH (21:01)
[2018-10-24] MEDS: LATANOPROST 0.005% OPHTH SOLN 2.5ML BOTTLE OU SCH (21:03)
[2018-10-24] MEDS: LIDOCAINE PATCH REMOVAL MC SCH (22:13)
[2018-10-25] MEDS: ACETAMINOPHEN 325 MG TABLET (FP) PO PRN (06:46)
[2018-10-25] MEDS: GABAPENTIN 400 MG CAPSULE (FP) PO SCH ×3 (06:47→21:12)
[2018-10-25] MEDS: DOCUSATE SODIUM 100 MG CAPSULE (FP) PO SCH ×3 (06:47→21:12)
[2018-10-25] MEDS: LATANOPROST 0.005% OPHTH SOLN 2.5ML BOTTLE OU SCH (09:10)
[2018-10-25] MEDS: PRENATAL VITAMINS W/ FOLIC ACID TABLET (FP) PO SCH (10:17)
[2018-10-25] MEDS: RANITIDINE HCL 150 MG TABLET (FP) PO SCH ×2 (10:17→21:11)
[2018-10-25] MEDS: TAMSULOSIN HCL 0.4 MG CAP PO SCH (10:17)
[2018-10-25] MEDS: LIDOCAINE 5% TOPICAL PATCH TP SCH (10:18)
[2018-10-25] MEDS: NICOTINE 21 MG/24 HOURS TOPICAL PATCH TD SCH (10:18)
[2018-10-25] MEDS: TIMOLOL 0.5% OPHTHALMIC SOL 5 ML BOTTLE OU SCH ×2 (10:18→18:27)
[2018-10-25] MEDS: FLUTICASONE PROP 0.05% 16 GM NASAL SPRAY NS SCH ×2 (10:19→22:11)
[2018-10-25] MEDS: NAPROXEN 375 MG TABLET (FP) PO SCH ×2 (10:20→21:12)
[2018-10-25] MEDS: CLOTRIMAZOLE 1%TOPICAL SOLUTION 30 ML BOTTLE TP SCH ×2 (10:21→21:11)
[2018-10-25] MEDS: TRIMETHOBENZAMIDE HCL 200MG/2ML INJ IM PRN (18:27)
[2018-10-25] MEDS: THIAMINE HCL 100 MG TABLET (FP) PO SCH (21:12)
[2018-10-25] MEDS: traZODone HCL 100 MG TABLET (FP) PO SCH (21:12)
[2018-10-25] MEDS: hydrOXYzine PAMOATE 50 MG CAPSULE (FP) PO PRN (21:13)
[2018-10-25] MEDS: ALBUTEROL SO4 8 GM HFA INHALER IH PRN (21:14)
[2018-10-25] MEDS: LIDOCAINE PATCH REMOVAL MC SCH (22:11)
--- NOTE | 2018-10-25 23:59 | PN ---
[facility] Progress Note Note: Pt c/o itchy skin after bath and wants benadry. Vital Signs - 24 hr 10/25/18 10/25/18 10/25/18 00:30 03:30 06:46 Temperature 98.1 F Pulse Rate 66 Respiratory 18 18 18 Rate Blood Pressure 130/97 Skin: Dry, no rash or redness. A: Dry skin plan: Eucerine cream apply daily
[2018-10-26] MEDS: DOCUSATE SODIUM 100 MG CAPSULE (FP) PO SCH ×3 (05:55→21:14)
[2018-10-26] MEDS: GABAPENTIN 400 MG CAPSULE (FP) PO SCH ×3 (05:55→21:14)
[2018-10-26] MEDS ORDERED: PT OWN MED DRAWER 7, Y5N ONE (08:34)
[2018-10-26] MEDS: RANITIDINE HCL 150 MG TABLET (FP) PO SCH ×2 (09:48→21:14)
[2018-10-26] MEDS: NICOTINE 21 MG/24 HOURS TOPICAL PATCH TD SCH (09:48)
[2018-10-26] MEDS: PRENATAL VITAMINS W/ FOLIC ACID TABLET (FP) PO SCH (09:48)
[2018-10-26] MEDS: NAPROXEN 375 MG TABLET (FP) PO SCH ×2 (09:48→21:13)
[2018-10-26] MEDS: LIDOCAINE 5% TOPICAL PATCH TP SCH (09:49)
[2018-10-26] MEDS: FLUTICASONE PROP 0.05% 16 GM NASAL SPRAY NS SCH ×2 (09:49→21:12)
[2018-10-26] MEDS: MINERAL OIL/PETROLAT/WATER TOPICAL CREAM 113 GM JAR TP SCH ×2 (09:49→22:17)
[2018-10-26] MEDS: TIMOLOL 0.5% OPHTHALMIC SOL 5 ML BOTTLE OU SCH ×2 (09:51→18:55)
[2018-10-26] MEDS: CLOTRIMAZOLE 1%TOPICAL SOLUTION 30 ML BOTTLE TP SCH ×2 (09:53→22:17)
[2018-10-26] MEDS: TAMSULOSIN HCL 0.4 MG CAP PO SCH (09:53)
[2018-10-26] MEDS: ALBUTEROL SO4 8 GM HFA INHALER IH PRN (09:58)
[2018-10-26] MEDS: THIAMINE HCL 100 MG TABLET (FP) PO SCH (21:13)
[2018-10-26] MEDS: traZODone HCL 100 MG TABLET (FP) PO SCH (21:14)
[2018-10-26] MEDS: LATANOPROST 0.005% OPHTH SOLN 2.5ML BOTTLE OU SCH (21:17)
[2018-10-26] MEDS: LIDOCAINE PATCH REMOVAL MC SCH (22:17)
[2018-10-27] MEDS: DOCUSATE SODIUM 100 MG CAPSULE (FP) PO SCH ×3 (06:37→21:08)
[2018-10-27] MEDS: GABAPENTIN 400 MG CAPSULE (FP) PO SCH ×3 (06:37→21:08)
[2018-10-27] MEDS: TAMSULOSIN HCL 0.4 MG CAP PO SCH (09:30)
[2018-10-27] MEDS: PRENATAL VITAMINS W/ FOLIC ACID TABLET (FP) PO SCH (09:31)
[2018-10-27] MEDS: FLUTICASONE PROP 0.05% 16 GM NASAL SPRAY NS SCH ×2 (09:32→21:11)
[2018-10-27] MEDS: RANITIDINE HCL 150 MG TABLET (FP) PO SCH ×2 (09:32→21:08)
[2018-10-27] MEDS: TIMOLOL 0.5% OPHTHALMIC SOL 5 ML BOTTLE OU SCH ×2 (09:32→19:00)
[2018-10-27] MEDS: NAPROXEN 375 MG TABLET (FP) PO SCH ×2 (09:32→21:08)
[2018-10-27] MEDS: LIDOCAINE 5% TOPICAL PATCH TP SCH (09:33)
[2018-10-27] MEDS: CLOTRIMAZOLE 1%TOPICAL SOLUTION 30 ML BOTTLE TP SCH ×2 (09:34→21:13)
[2018-10-27] MEDS: MINERAL OIL/PETROLAT/WATER TOPICAL CREAM 113 GM JAR TP SCH ×2 (09:34→21:14)
[2018-10-27] MEDS: NICOTINE 21 MG/24 HOURS TOPICAL PATCH TD SCH (09:35)
[2018-10-27] MEDS: traZODone HCL 100 MG TABLET (FP) PO SCH (21:08)
[2018-10-27] MEDS: LIDOCAINE PATCH REMOVAL MC SCH (21:11)
[2018-10-27] MEDS: LATANOPROST 0.005% OPHTH SOLN 2.5ML BOTTLE OU SCH (21:12)
[2018-10-27] MEDS: THIAMINE HCL 100 MG TABLET (FP) PO SCH (21:12)
[2018-10-27] MEDS: ALBUTEROL SO4 8 GM HFA INHALER IH PRN (21:14)
[2018-10-28] MEDS: DOCUSATE SODIUM 100 MG CAPSULE (FP) PO SCH ×3 (07:22→21:13)
[2018-10-28] MEDS: GABAPENTIN 400 MG CAPSULE (FP) PO SCH ×3 (07:22→21:11)
[2018-10-28] MEDS: PRENATAL VITAMINS W/ FOLIC ACID TABLET (FP) PO SCH (09:34)
[2018-10-28] MEDS: RANITIDINE HCL 150 MG TABLET (FP) PO SCH ×2 (09:35→21:12)
[2018-10-28] MEDS: TAMSULOSIN HCL 0.4 MG CAP PO SCH (09:35)
[2018-10-28] MEDS: NAPROXEN 375 MG TABLET (FP) PO SCH ×2 (09:35→21:11)
[2018-10-28] MEDS: MINERAL OIL/PETROLAT/WATER TOPICAL CREAM 113 GM JAR TP SCH ×2 (09:36→21:12)
[2018-10-28] MEDS: LIDOCAINE 5% TOPICAL PATCH TP SCH (09:36)
[2018-10-28] MEDS: NICOTINE 21 MG/24 HOURS TOPICAL PATCH TD SCH (09:36)
[2018-10-28] MEDS: FLUTICASONE PROP 0.05% 16 GM NASAL SPRAY NS SCH ×2 (09:37→21:12)
[2018-10-28] MEDS: CLOTRIMAZOLE 1%TOPICAL SOLUTION 30 ML BOTTLE TP SCH ×2 (09:37→21:13)
[2018-10-28] MEDS: TIMOLOL 0.5% OPHTHALMIC SOL 5 ML BOTTLE OU SCH ×2 (09:37→18:40)
[2018-10-28] MEDS ORDERED: COLLOIDAL OATMEAL 1 BAR EACH TP PRN (13:03)
[2018-10-28] MEDS: ACETAMINOPHEN 325 MG TABLET (FP) PO PRN (14:37)
[2018-10-28] MEDS: traZODone HCL 100 MG TABLET (FP) PO SCH (21:12)
[2018-10-28] MEDS: LIDOCAINE PATCH REMOVAL MC SCH (21:12)
[2018-10-28] MEDS: LATANOPROST 0.005% OPHTH SOLN 2.5ML BOTTLE OU SCH (21:14)
[2018-10-28] MEDS ORDERED: MICONAZOLE NITRATE 100 MG SUPP SUPP.VAG PV SCH (22:00)
[2018-10-28] MEDS: THIAMINE HCL 100 MG TABLET (FP) PO SCH (22:07)
[2018-10-29] MEDS: DOCUSATE SODIUM 100 MG CAPSULE (FP) PO SCH ×3 (06:06→21:01)
[2018-10-29] MEDS: GABAPENTIN 400 MG CAPSULE (FP) PO SCH ×3 (06:06→21:00)
[2018-10-29] MEDS: TAMSULOSIN HCL 0.4 MG CAP PO SCH (07:53)
[2018-10-29] MEDS: MINERAL OIL/PETROLAT/WATER TOPICAL CREAM 113 GM JAR TP SCH ×2 (10:18→21:06)
[2018-10-29] MEDS: FLUTICASONE PROP 0.05% 16 GM NASAL SPRAY NS SCH ×2 (10:18→21:01)
[2018-10-29] MEDS: LIDOCAINE 5% TOPICAL PATCH TP SCH (10:19)
[2018-10-29] MEDS: CLOTRIMAZOLE 1%TOPICAL SOLUTION 30 ML BOTTLE TP SCH ×2 (10:23→21:02)
[2018-10-29] MEDS: NAPROXEN 375 MG TABLET (FP) PO SCH ×2 (10:24→21:03)
[2018-10-29] MEDS: TIMOLOL 0.5% OPHTHALMIC SOL 5 ML BOTTLE OU SCH ×2 (10:26→18:45)
[2018-10-29] MEDS: RANITIDINE HCL 150 MG TABLET (FP) PO SCH ×2 (10:26→21:05)
[2018-10-29] MEDS: PRENATAL VITAMINS W/ FOLIC ACID TABLET (FP) PO SCH (10:26)
[2018-10-29] MEDS: NICOTINE 21 MG/24 HOURS TOPICAL PATCH TD SCH (10:29)
--- NOTE | 2018-10-29 15:02 | PN ---
[facility] Progress Note Note: Pt requesting toe nail clippers to clip his toenails. PE- pt has bunions and calluses across several toes a/p: pt without acute issues of his feet- pt leaving in 2 days- pt will f/u with primary care doc- or f/u in [facility]
[2018-10-29] MEDS: hydrOXYzine PAMOATE 50 MG CAPSULE (FP) PO PRN (21:00)
[2018-10-29] MEDS: THIAMINE HCL 100 MG TABLET (FP) PO SCH (21:00)
[2018-10-29] MEDS: traZODone HCL 100 MG TABLET (FP) PO SCH (21:01)
[2018-10-29] MEDS: LIDOCAINE PATCH REMOVAL MC SCH (21:01)
[2018-10-29] MEDS: LATANOPROST 0.005% OPHTH SOLN 2.5ML BOTTLE OU SCH (21:04)
[2018-10-30] MEDS: DOCUSATE SODIUM 100 MG CAPSULE (FP) PO SCH ×3 (06:40→21:26)
[2018-10-30] MEDS: GABAPENTIN 400 MG CAPSULE (FP) PO SCH ×3 (06:41→21:23)
[2018-10-30] MEDS: NICOTINE 21 MG/24 HOURS TOPICAL PATCH TD SCH (10:17)
[2018-10-30] MEDS: LIDOCAINE 5% TOPICAL PATCH TP SCH (10:17)
[2018-10-30] MEDS: PRENATAL VITAMINS W/ FOLIC ACID TABLET (FP) PO SCH (10:18)
[2018-10-30] MEDS: NAPROXEN 375 MG TABLET (FP) PO SCH ×2 (10:18→21:23)
[2018-10-30] MEDS: TAMSULOSIN HCL 0.4 MG CAP PO SCH (10:19)
[2018-10-30] MEDS: RANITIDINE HCL 150 MG TABLET (FP) PO SCH ×2 (10:19→21:23)
[2018-10-30] MEDS: FLUTICASONE PROP 0.05% 16 GM NASAL SPRAY NS SCH ×2 (10:20→21:25)
[2018-10-30] MEDS: TIMOLOL 0.5% OPHTHALMIC SOL 5 ML BOTTLE OU SCH ×2 (10:21→18:55)
[2018-10-30] MEDS: CLOTRIMAZOLE 1%TOPICAL SOLUTION 30 ML BOTTLE TP SCH ×2 (10:27→21:25)
--- NOTE | 2018-10-30 10:55 | PN ---
[facility] Progress Note Note: C/O HEAD CONGESTION AND COLD SX. Vital Signs 10/30/18 10/30/18 03:22 06:38 Temperature 98.3 F Pulse Rate 68 Respiratory 18 18 Rate Blood Pressure 118/72 NAD PLAN:ACTIFED INCREASE PO FLUIDS
[2018-10-30] MEDS ORDERED: P-EPHED 60MG/TRIPROLIDI 2.5MG TABLET PO PRN (12:44)
[2018-10-30] MEDS: hydrOXYzine PAMOATE 50 MG CAPSULE (FP) PO PRN (14:20)
[2018-10-30] MEDS: MINERAL OIL/PETROLAT/WATER TOPICAL CREAM 113 GM JAR TP SCH ×2 (14:21→21:26)
[2018-10-30] MEDS: traZODone HCL 100 MG TABLET (FP) PO SCH (21:23)
[2018-10-30] MEDS: THIAMINE HCL 100 MG TABLET (FP) PO SCH (21:24)
[2018-10-30] MEDS: LATANOPROST 0.005% OPHTH SOLN 2.5ML BOTTLE OU SCH (21:24)
[2018-10-30] MEDS: LIDOCAINE PATCH REMOVAL MC SCH (21:25)
[2018-10-31] MEDS: GABAPENTIN 400 MG CAPSULE (FP) PO SCH (06:12)
[2018-10-31] MEDS: DOCUSATE SODIUM 100 MG CAPSULE (FP) PO SCH (06:12)
[2018-10-31 06:41] VITALS: BP 127/74; PULSE 56; TEMP 98.6
--- NOTE | 2018-10-31 06:46 | PN ---
Psychiatric Progress Note Vital Signs: Vital Signs Period Temp Pulse Resp BP Sys/Gold Pulse Ox Last 24 Hr 98.6 F 56 16-18 127/74 Date of Session: 10/31/18 Chief Complaint:: Discharge Note HPI: Patient addressing Alcohol Dependence comorbid with Nicotine Dependence, Paranoid Schizophrenia, Alcohol-Induced Mood Disorder and Alcohol-Induced Sleep Disorder ROS: GERD, Arthritis, Glaucoma, Cataract both eyes, PUD, BPH were medically managed Current Medications: Active Medications Generic Name Dose Route Start Last Admin Trade Name Freq PRN Reason Stop Dose Admin Acetaminophen 650 mg 10/17/18 22:22 10/28/18 14:37 Tylenol - PO 650 mg Q4H PRN Administration FEVER Al Hydroxide/Mg Hydroxide 30 ml 10/17/18 22:22 Mylanta Oral Suspension - PO Q6H PRN DYSPEPSIA Albuterol Sulfate 1 amp 10/19/18 16:24 Ventolin 0.083% Nebulizer Soln - NEB Q4H PRN SHORT OF BREATH/WHEEZING Albuterol Sulfate 2 puff 10/19/18 16:24 10/27/18 21:14 Ventolin Hfa Inhaler - IH 2 puff Q4H PRN Administration SHORT OF BREATH/WHEEZING Clotrimazole 1 applic 10/18/18 10:00 10/30/18 21:25 Lotrimin 1% Solution - TP 1 applic BID KAZ Administration Colloidal Oatmeal 1 applic 10/28/18 13:03 10/28/18 14:37 Aveeno Soap - TP 1 applic DAILY PRN Administration HYGEINE Docusate Sodium 100 mg 10/22/18 14:00 10/31/18 06:12 Colace - PO Not Given TID KAZ Eucalyptus/Menthol/Phenol/Sorbitol 1 each 10/17/18 22:22 Cepastat Lozenge - MM Q4H PRN SORE THROAT Fluticasone Propionate 1 spray 10/18/18 22:00 10/30/18 21:25 Flonase - NS 1 spray BID KAZ Administration Gabapentin 400 mg 10/18/18 06:00 10/31/18 06:12 Neurontin - PO Not Given TID KAZ Hydroxyzine Pamoate 50 mg 10/17/18 22:22 10/30/18 14:20 Vistaril - PO 50 mg Q4H PRN Administration AGITATION Latanoprost 1 drop 10/18/18 22:00 10/30/18 21:24 Xalatan 0.005% Eye Drops - OU 1 applic HS KAZ Administration Lidocaine 2 patch 10/23/18 10:00 10/30/18 10:17 Lidoderm Patch - TP 2 patch DAILY KAZ Administration Loperamide HCl 4 mg 10/17/18 22:22 Imodium - PO Q6H PRN DIARRHEA Magnesium Citrate 300 ml 10/17/18 22:22 10/23/18 11:00 Citroma - PO 300 ml Q48H PRN Administration CONSTIPATION Magnesium Hydroxide 30 ml 10/17/18 22:22 10/20/18 17:49 Milk Of Magnesia - PO 30 ml DAILY PRN Administration CONSTIPATION Melatonin 5 mg 10/17/18 22:00 10/23/18 21:19 Melatonin PO 5 mg HS PRN Administration INSOMNIA Miscellaneous 1 each 10/22/18 22:00 10/30/18 21:25 Lidoderm Patch Removal MC 1 each DAILY@2200 KAZ Administration Multi-Ingredient Lotion 1 applic 10/26/18 10:00 10/30/18 21:26 Eucerin (Small Jar) - TP Not Given BID KAZ Naproxen 375 mg 10/17/18 22:45 10/30/18 21:23 Naprosyn - PO 375 mg BID KAZ Administration Nicotine 21 mg 10/18/18 10:00 10/30/18 10:17 Nicoderm Patch - TD 21 mg DAILY KAZ Administration Nicotine Polacrilex 2 mg 10/17/18 22:22 Nicorette Gum - BC Q2H PRN NICOTINE REPLACEMENT RX Multivit/Folic Acid/Iron 1 tab 10/18/18 10:00 10/30/18 10:18 Vitamins (Sjr) - PO 1 tab DAILY KAZ Administration Ranitidine HCl 150 mg 10/17/18 22:45 10/30/18 21:23 Zantac - PO 150 mg BID KAZ Administration Tamsulosin HCl 0.4 mg 10/18/18 08:30 10/30/18 10:19 Flomax - PO 0.4 mg DAILY@0830 KAZ Administration Thiamine HCl 100 mg 10/18/18 22:00 10/30/18 21:24 Vitamin B1 - PO 100 mg HS KAZ Administration Timolol Maleate 1 drop 10/18/18 09:00 10/30/18 18:55 Timoptic 0.5% OU Not Given BIDPC KAZ Trazodone HCl 100 mg 10/19/18 22:00 10/30/18 21:23 Desyrel - PO 100 mg HS KAZ Administration Trimethobenzamide HCl 200 mg 10/22/18 07:31 10/25/18 18:27 Tigan Injection - IM 200 mg Q6H PRN Administration NAUSEA Current Side Effect: No Lab tests ordered: Yes Provider note:: Patient has completed this program today. He has met his treatment goals and will continue to address his issues in outpatient treatment program at [facility] at [phone] [place] [address]. Told jingle writer that from his participation in this program, he has learned to identify his triggers and better ways to control them. He responded well to Trazadone 100 mg po HS. Script for that medication is electronically transmitted to [facility] at [address] [place] [id number]. He is stable for discharge today Total face to face time:: 35 Mental Status Exam - Mental Status Exam Alert and Oriented to: Time, Place, Person Cognitive Function: Fair Patient Appearance: Well Groomed Mood: Hopeful, Euthymic Affect: Appropriate Patient Behavior: Cooperative Speech Pattern: Clear Voice Loudness: Normal Thought Process: Intact, Goal Oriented Thought Disorder: Not Present Hallucinations: Denies Suicidal Ideation: Denies Homicidal Ideation: Denies Insight/Judgement: Fair Sleep: Fair Appetite: Good Muscle strength/Tone: Normal Gait/Station: Spastic (Uses a cane as ambulatory aid) Psychiatric Treatment Plan - Problem List (1) Alcohol dependence Current Visit: Yes (2) Nicotine dependence Current Visit: Yes Qualifiers: Nicotine product type: cigarettes Substance use status: in withdrawal Qualified Code(s): F17.213 - Nicotine dependence, cigarettes, with withdrawal (3) Paranoid schizophrenia Current Visit: No Comment: According to records. Diagnosis rejected by the patient. Non-adherent to treatment. Lost to follow up. (4) Alcohol-induced mood disorder Current Visit: Yes (5) Alcohol-induced sleep disorder Current Visit: Yes (6) BPH (benign prostatic hypertrophy) Current Visit: Yes Qualifiers: Lower urinary tract symptom presence: unspecified whether lower urinary tract symptoms present Qualified Code(s): N40.0 - Benign prostatic hyperplasia without lower urinary tract symptoms Comment: Has not seen a provider since initiation of flomax (7) Gastroesophageal reflux disease Current Visit: Yes (8) Glaucoma of both eyes Current Visit: Yes Qualifiers: Glaucoma type: primary angle-closure Primary angle closure glaucoma type: chronic Glaucoma stage: mild stage Qualified Code(s): H40.2231 - Chronic angle-closure glaucoma, bilateral, mild stage Comment: Last eye exam September 2018 (9) Asthma Current Visit: No (10) arthritis of left knee Current Visit: No Initial treatment plan: Patient is discharged today and referred to [facility] for outpatient treatment
[2018-10-31] MEDS: TAMSULOSIN HCL 0.4 MG CAP PO SCH (09:49)
[2018-10-31] MEDS: TIMOLOL 0.5% OPHTHALMIC SOL 5 ML BOTTLE OU SCH (09:50)
[2018-10-31] MEDS: NICOTINE 21 MG/24 HOURS TOPICAL PATCH TD SCH (09:51)
[2018-10-31] MEDS: FLUTICASONE PROP 0.05% 16 GM NASAL SPRAY NS SCH (09:51)
[2018-10-31] MEDS: PRENATAL VITAMINS W/ FOLIC ACID TABLET (FP) PO SCH (09:51)
[2018-10-31] MEDS: MINERAL OIL/PETROLAT/WATER TOPICAL CREAM 113 GM JAR TP SCH (09:51)
[2018-10-31] MEDS: CLOTRIMAZOLE 1%TOPICAL SOLUTION 30 ML BOTTLE TP SCH (09:51)
[2018-10-31] MEDS: LIDOCAINE 5% TOPICAL PATCH TP SCH (09:51)
[2018-10-31] MEDS: RANITIDINE HCL 150 MG TABLET (FP) PO SCH (09:51)
[2018-10-31] MEDS: NAPROXEN 375 MG TABLET (FP) PO SCH (09:51)
--- NOTE | 2018-10-31 09:54 | PN ---
S Progress Note Note: Pt leaving today- states he has all medications at home- noted in the pharmacy record that they were filled ~10/16
== END 2018-10-31 10:15 | disposition home or self-care (01) | DRG 772 ==
LOC: YASAS 16:03 → Y5N 22:26
PROVIDERS: ADMIT Psychiatry & Neurology Psychiatry; ATTEND Psychiatry & Neurology Psychiatry
PROC: HZ42ZZZ Group Counseling for Substance Abuse Treatment, Cognitive-Behavioral (ICD-10-PCS; principal; 2018-10-17)
DX: F10.20 Alcohol dependence, uncomplicated (principal); F17.213 Nicotine dependence, cigarettes, with withdrawal; F10.24 Alcohol dependence with alcohol-induced mood disorder; F10.282 Alcohol dependence with alcohol-induced sleep disorder; F20.0 Paranoid schizophrenia; G40.509 Epileptic seizures related to external causes, not intractable, without status epilepticus; J45.909 Unspecified asthma, uncomplicated; L85.3 Xerosis cutis; K21.9 Gastro-esophageal reflux disease without esophagitis; K27.9 Peptic ulcer, site unspecified, unspecified as acute or chronic, without hemorrhage or perforation; M54.5 Low back pain; G89.29 Other chronic pain; M13.862 Other specified arthritis, left knee; M13.861 Other specified arthritis, right knee; M13.842 Other specified arthritis, left hand; M13.841 Other specified arthritis, right hand; R26.89 Other abnormalities of gait and mobility; Z99.89 Dependence on other enabling machines and devices; Z87.39 Personal history of other diseases of the musculoskeletal system and connective tissue; L84 Corns and callosities
CPT/HCPCS: 36415; 80053; 81003; 85027; 86593

== ENCOUNTER 2018-12-08 11:47 | Inpatient (IN) | payer OTHER ==
[2018-12-08 13:58] VITALS: BMI 25.2
--- NOTE | 2018-12-08 20:15 | HP ---
Screened but not Admitted - Documentation of Visit Screened but not Admitted: Yes Left Prior to Completion of Assessment: No Insurance Authorization Denied: No Patient Does Not Meet Criteria for Admission: Yes Level of Care Recommended at this Time: ER Evaluation/Care (pt reprots recent fall down flight of stairs 2 daays ago, currently c/o neck pain, had prior surgical intervention C-spine , reports left hand pain and swelling. ER report to Dr Robles . Pt left via EMS . )
--- NOTE | 2018-12-08 22:13 | HP ---
CIWA Score Nausea/Vomitin Muscle Tremors: 4-Moderate,w/Arms Extend Anxiety: 4-Mod. Anxious/Guarded Agitation: 4-Moderately Restless Paroxysmal Sweats: 3 Orientation: 3-Disoriented Date>2 days Tacttile Disturbances: 0-None Auditory Disturbances: 0-None Visual Disturbances: 0-None Headache: 3-Moderate CIWA-Ar Total Score: 24 - Admission Criteria OASAS Guidelines: Admission for Medically Managed Detox: Requires at least one of the followin. CIWA greater than 12 2. Seizures within the past 24 hours 3. Delirium tremens within the past 24 hours 4. Hallucinations within the past 24 hours 5. Acute intervention needed for co occurring medical disorder 6. Acute intervention needed for co occurring psychiatric disorder 7. Severe withdrawal that cannot be handled at a lower level of care (continued vomiting, continued diarrhea, abnormal vital signs) requiring intravenous medication and/or fluids 8. Patient presents the following: CIWA greater than 12, Acute intervention needed for co-occurring med or psych disorder Admission Criteria Met: Admission criteria met Admission ROS [facility] Chief Complaint: returns from [facility] after being cleared for admission 2/2 post fal. now with c/ o withdrawal sx's Allergies/Adverse Reactions: Allergies Allergy/AdvReac Type Severity Reaction Status Date / Time metoclopramide HCl Allergy Severe Swelling Verified 10/17/18 20:50 [From Reglan] Penicillins Allergy Severe Hives Verified 10/17/18 20:50 shellfish derived Allergy Severe Swelling Verified 10/17/18 20:50 orange juice AdvReac Mild Rash Verified 10/17/18 20:50 History of Present Illness: 58 Y.O. MALE WITH HX/O ALCOHOLISM HERE FOR DETOX. HE IS KNOWN TO OUR SERVICE. LAST ADMIISON 09/2018. HE RETURNS FROM [facility] AFTER BE SENT THERE EARLIER FOR C/ O NECK AND ARM PAIN 2/2 TO A REPORTED FAL 2 DAYS AGO. HE HAS SINCE BEEN CLEARED AND NOW HERE WITH C/O WITHDRAWAL SX'S, CIWA 24. DENIES ANY SIGNIFICANT PERIOD OF CLEAN TIME UNLESS HE WAS IN INPATIENT REHAB (1 MONTH). REPORTS HX/O SEIZURES , DENIES PRESENT SI/HI, AVH. CURRENTLY HOMELESS, UNEMPLOYED, DENIES LEGALS. PMHX- GATRIC ULCERS, PSYCH- ANXIETY Medical Decision Making - Medical Decision Making 12/08/18 17:10 Patient is 58M here today with alcohol intox and report of trauma. Will evaluate with basic labs, ekg, cxr, wrist x-ray, head ct, cervical spine ct. Vitals normal and stable. No acute trauma found on exam, patient exposed. 12/08/18 20:18 CBC normal. CMP reassuring. Head CT normal. Neck CT shows no acute fracture. Wrist x-ray shows old, poorly healed fracture. Nothing acute. ETOH 200s, patient has sobered up, tolerating PO. Safe to detox. 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 Exam Limitations: No Limitations - Ebola screening Have you traveled outside of the country in the last 21 days: No (N) Have you had contact with anyone from an Ebola affected area: No Have you been sick,other than usual withdrawal symptoms: No Do you have a fever: No - Review of Systems Constitutional: Chills, Loss of Appetite, Night Sweats, Changes in sleep EENT: reports: Dental Problems (POOR DENTITION) Respiratory: reports: Shortness of Breath Cardiac: reports: No Symptoms Reported GI: reports: Nausea, Poor Appetite, Poor Fluid Intake, Vomiting, Abdominal cramping : reports: No Symptoms Reported Musculoskeletal: reports: Back Pain, Neck Pain Integumentary: reports: No Symptoms Reported Neuro: reports: Numbness, Paresthesia, Seizure (R/T WITHDRAWAL SX'S) Endocrine: reports: Other (HX/O DM) Hematology: reports: No Symptoms Reported Psychiatric: reports: Anxious, Depressed Other Systems: Reviewed and Negative Patient History - Patient Medical History Hx Anemia: No Hx Asthma: No Hx Chronic Obstructive Pulmonary Disease (COPD): No Hx Cancer: No Hx Cardiac Disorders: No Hx Congestive Heart Failure: No Hx Hypertension: No Hx Hypercholesterolemia: No Hx Pacemaker: No HX Cerebrovascular Accident: No Hx Seizures: Yes (ALCOHOL R/T SEIZURE LAST ATTACK 3 weeks ago. ) Hx Dementia: No Hx Diabetes: No Hx Gastrointestinal Disorders: Yes (GASTRIC ULCER) Hx Liver Disease: No Hx Genitourinary Disorders: No Hx Sexually Transmitted Disorders: No Hx Renal Disease (ESRD): No Hx Thyroid Disease: No Hx Human Immunodeficiency Virus (HIV): No (05/14 negative ) Hx Hepatitis C: No Hx Depression: Yes (Denies suicide or violent ideation) Hx Suicide Attempt: No Hx Bipolar Disorder: No Hx Schizophrenia: No - Patient Surgical History Past Surgical History: Yes Hx Neurologic Surgery: Yes (C-SPINE FUSION IN 2016) Hx Cataract Extraction: No Hx Cardiac Surgery: No Hx Lung Surgery: No Hx Breast Surgery: No Hx Breast Biopsy: No Hx Abdominal Surgery: No Hx Appendectomy: No Hx Cholecystectomy: No Hx Genitourinary Surgery: No Hx Section: No Hx Orthopedic Surgery: Yes (Sx bilateral wrist and R ankle sx; ON THE NECK) Other Surgical History: HE FELL DOWN 4 DAYS AGO AND INURED THE SCALP - STAPLED Anesthesia Reaction: No - PPD History Previous Implant?: Yes Documented Results: Negative w/proof Implanted On Prior [facility] Admission?: Yes Date: 06/05/18 Results: 0 MM PPD to be Administered?: No - Smoking Cessation Smoking history: Current every day smoker Have you smoked in the past 12 months: Yes Aproximately how many cigarettes per day: 30 Cigars Per Day: 0 Hx Chewing Tobacco Use: No Initiated information on smoking cessation: Yes 'Breaking Loose' booklet given: 12/08/18 - Substance & Tx. History Hx Alcohol Use: Yes Hx Substance Use: Yes Substance Use Type: Alcohol Hx Substance Use Treatment: Yes ([facility]) - Substances Abused VODKA Route: Oral Frequency: Daily Amount used: 2 PINTS Age of first use: 14 Date of Last Use: 12/08/18 Family Disease History - Family Disease History Family Disease History: Other: Father (alcohol,), Mother (alcohol), Brother (alcohol), Sister (alcohol) Admission Physical Exam BHS - Vital Signs Vital Signs: Vital Signs - 24 hr 12/08/18 13:57 Temperature 96.9 F L Pulse Rate 84 Respiratory 20 Rate Blood Pressure 128/77 - Physical General Appearance: Yes: Appropriately Dressed, Moderate Distress, Tremorous, Irritable, Anxious HEENTM: Yes: EOMI, Normocephalic, Normal Voice, MARISOL, Pharynx Normal, Nasal Congestion, Rhinorrhea, Other (POOR DENTITION) Respiratory: Yes: Chest Non-Tender, Lungs Clear, Normal Breath Sounds, No Respiratory Distress, No Accessory Muscle Use Neck: Yes: No masses,lesions,Nodules, Supple, Trachea in good position Breast: Yes: Breast Exam Deferred Cardiology: Yes: Regular Rhythm, Regular Rate, S1, S2 Abdominal: Yes: Normal Bowel Sounds, Non Tender, Soft Genitourinary: Yes: Other (NO C/O OFFERED) Back: Yes: Surgical Scar (CERVICAL SPINE) Musculoskeletal: Yes: Other (AMBULATES WITH CANE) Extremities: Yes: Non-Tender, Tremors (FELT) 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: Yes: Alert, Motor Strength 5/5, Depressed Affect Integumentary: Yes: Warm, Other (FLUSHED) Lymphatic: Yes: Within Normal Limits - Diagnostic (1) Alcohol dependence with uncomplicated withdrawal Current Visit: Yes Status: Acute (2) Alcohol-induced mood disorder Current Visit: Yes Status: Chronic (3) Nicotine dependence Current Visit: Yes Status: Chronic Qualifiers: Nicotine product type: cigarettes Substance use status: in withdrawal Qualified Code(s): F17.213 - Nicotine dependence, cigarettes, with withdrawal (4) Alcohol related seizure Current Visit: Yes Status: Suspected (5) Gastroesophageal reflux disease Current Visit: Yes Status: Chronic (6) Glaucoma of both eyes Current Visit: Yes Status: Chronic Qualifiers: Glaucoma type: primary angle-closure Primary angle closure glaucoma type: chronic Glaucoma stage: mild stage Qualified Code(s): H40.2231 - Chronic angle-closure glaucoma, bilateral, mild stage Comment: Last eye exam September 2018 (7) History of neck surgery Current Visit: Yes Status: Chronic (8) Use of cane as ambulatory aid Current Visit: Yes Status: Chronic Cleared for Admission [facility] - Detox or Rehab [facility] Level of Care: Medically Managed Detox Regimen/Protocol: Librium Claeared for Rehab Admission: No S Breath Alcohol Content Breath Alcohol Content: 0.298 Urine Drug Screen - Results Drug Screen Negative: No Urine Drug Screen Results: BZO-Benzodiazepines
[2018-12-08] MEDS ORDERED: MAGNESIUM HYDROX 2400MG/30ML ORAL SUSPENSION 30 ML CUP PO PRN (22:22)
[2018-12-08] MEDS ORDERED: NICOTINE POLACRILEX 4 MG GUM BC PRN (22:22)
[2018-12-08] MEDS ORDERED: guaiFENesin/D-METHORPHAN HB 10 ML UNIT-DOSE CUPS PO PRN (22:22)
[2018-12-08] MEDS ORDERED: hydrOXYzine PAMOATE 50 MG CAPSULE (FP) PO PRN (22:22)
[2018-12-08] MEDS ORDERED: LOPERAMIDE HCL 2 MG CAPSULE PO PRN (22:22)
[2018-12-08] MEDS ORDERED: IBUPROFEN 400 MG TABLET (FP) PO PRN (22:22)
[2018-12-08] MEDS ORDERED: MENTHOL/PHENOL 1 EACH UD MM PRN (22:22)
[2018-12-08] MEDS ORDERED: ACETAMINOPHEN 325 MG TABLET (FP) PO PRN (22:22)
[2018-12-08] MEDS ORDERED: MAGNESIUM CITRATE 300 ML BOTTLE PO PRN (22:22)
[2018-12-08] MEDS ORDERED: P-EPHED 60MG/TRIPROLIDI 2.5MG TABLET PO PRN (22:22)
[2018-12-08] MEDS: chlordiazePOXIDE HCL 25 MG CAPSULE PO SCH (23:19)
[2018-12-08] MEDS: MELATONIN 5 MG TABLETS PO PRN (23:21)
[2018-12-09] MEDS: chlordiazePOXIDE HCL 25 MG CAPSULE PO PRN (03:36)
[2018-12-09] MEDS: chlordiazePOXIDE HCL 25 MG CAPSULE PO SCH ×4 (05:22→23:23)
[2018-12-09] MEDS ORDERED: TIMOLOL 0.5% OPHTHALMIC SOL 5 ML BOTTLE OU SCH (10:00)
[2018-12-09] MEDS: PRENATAL VITAMINS W/ FOLIC ACID TABLET (FP) PO SCH (10:47)
[2018-12-09] MEDS: RANITIDINE HCL 150 MG TABLET (FP) PO SCH ×2 (10:47→23:23)
[2018-12-09] MEDS: TAMSULOSIN HCL 0.4 MG CAP PO SCH (10:47)
[2018-12-09] MEDS: NICOTINE 21 MG/24 HOURS TOPICAL PATCH TD SCH (10:47)
--- NOTE | 2018-12-09 12:47 | PN ---
S CIWA - CIWA Score Nausea/Vomitin-Mild Nausea/No Vomiting Muscle Tremors: 4-Moderate,w/Arms Extend Anxiety: 4-Mod. Anxious/Guarded Agitation: 4-Moderately Restless Paroxysmal Sweats: 1-Minimal Palms Moist Orientation: 1-Uncertain about Date Tacttile Disturbances: 0-None Auditory Disturbances: 0-None Visual Disturbances: 0-None Headache: 2-Mild CIWA-Ar Total Score: 17 BHS Progress Note (SOAP) Subjective: tremor sweating restlessness c/o fungal feet Objective: 12/09/18 12:47 Vital Signs Temperature 98.9 F 12/09/18 09:37 Pulse Rate 89 12/09/18 09:37 Respiratory Rate 19 12/09/18 09:37 Blood Pressure 154/78 12/09/18 09:37 O2 Sat by Pulse Oximetry (%) Laboratory Last Values RPR Titer Nonreactive (NONREACTIVE) 12/09/18 07:50 12/09/18 12:51 last lab 09/2018 Assessment: 12/09/18 12:52 withdrawal sx Plan: continue detox
[2018-12-09] MEDS: CLOTRIMAZOLE 1% CREAM 15 GM TUBE TP SCH ×2 (16:03→23:23)
[2018-12-09] MEDS ORDERED: COLLOIDAL OATMEAL 1 BAR EACH TP PRN (18:20)
--- NOTE | 2018-12-09 18:26 | PN ---
BHS Progress Note Note: Pt's timolol changed to BID @ 0600 and 1800 per pt's request
[2018-12-09] MEDS: THIAMINE HCL 100 MG TABLET (FP) PO SCH (23:23)
[2018-12-09] MEDS: LATANOPROST 0.005% OPHTH SOLN 2.5ML BOTTLE OU SCH (23:23)
[2018-12-09] MEDS: TIMOLOL 0.5% OPHTHALMIC SOL 5 ML BOTTLE OU SCH (23:24)
[2018-12-09] MEDS: MELATONIN 5 MG TABLETS PO PRN (23:48)
[2018-12-09] MEDS: MAG HYDROX/AL HYDROX/SIMETH 30 ML UNIT-DOSE CUP PO PRN (23:53)
[2018-12-10] MEDS: chlordiazePOXIDE HCL 25 MG CAPSULE PO SCH ×3 (06:51→18:04)
--- NOTE | 2018-12-10 09:31 | PN ---
S CIWA - CIWA Score Nausea/Vomitin-No Nausea/No Vomiting Muscle Tremors: 4-Moderate,w/Arms Extend Anxiety: 2 Agitation: 3 Paroxysmal Sweats: 2 Orientation: 0-Oriented Tacttile Disturbances: 0-None Auditory Disturbances: 0-None Visual Disturbances: 0-None Headache: 0-None Present CIWA-Ar Total Score: 11 BHS Progress Note (SOAP) Subjective: neck pain sweats itchy skin agitation shakes Objective: 12/10/18 09:23 Vital Signs Temperature 96.8 F L 12/10/18 06:17 Pulse Rate 70 12/10/18 06:17 Respiratory Rate 18 12/10/18 06:17 Blood Pressure 134/76 12/10/18 06:17 O2 Sat by Pulse Oximetry (%) Laboratory Tests 12/09/18 07:50 RPR Titer Nonreactive rest of labs pending aaox3 ambulating no acute distress Assessment: 12/10/18 09:40 withdrawal sx Plan: continue detox increase fluids benadryl 25mg prn for itching analgesic balm naproxen 500mg bid
[2018-12-10] MEDS: RANITIDINE HCL 150 MG TABLET (FP) PO SCH ×2 (10:42→21:56)
[2018-12-10] MEDS: TAMSULOSIN HCL 0.4 MG CAP PO SCH (10:42)
[2018-12-10] MEDS: NAPROXEN 500 MG TABLET (FP) PO SCH ×2 (10:42→22:29)
[2018-12-10] MEDS: TIMOLOL 0.5% OPHTHALMIC SOL 5 ML BOTTLE OU SCH ×2 (10:43→18:50)
[2018-12-10] MEDS: CLOTRIMAZOLE 1% CREAM 15 GM TUBE TP SCH ×2 (10:43→22:29)
[2018-12-10] MEDS: METHYL SALICYLATE/MENTHOL OINT 30 GM TUBE TP SCH ×2 (10:44→22:30)
[2018-12-10] MEDS: FLUTICASONE PROP 0.05% 16 GM NASAL SPRAY NS SCH (10:45)
[2018-12-10] MEDS: NICOTINE 21 MG/24 HOURS TOPICAL PATCH TD SCH (10:46)
[2018-12-10] MEDS: PRENATAL VITAMINS W/ FOLIC ACID TABLET (FP) PO SCH (10:46)
[2018-12-10] MEDS: diphenhydrAMINE HCL 25 MG CAPSULE (FP) PO PRN (11:04)
[2018-12-10] MEDS: MAG HYDROX/AL HYDROX/SIMETH 30 ML UNIT-DOSE CUP PO PRN ×2 (11:04→21:56)
--- NOTE | 2018-12-10 12:03 | CONSULT ---
[facility] Psychiatric Consult - Data Date of interview: 12/10/18 Admission source: [facility] Identifying data: This is a 58 years old male, ambulating with cane, single, homeless, on SSI support, with psychiqatric hospitalization history, with history of Schizophrenia, with Alcohol, Nicotine dependence, reports Alcohol withdrawal symptoms and seeking for detox. Patient with multiple medical, problems, denies suicdial, homicidal hisrtory. Substance Abuse History: - Smoking Cessation. Smoking history: Current every day smoker. Have you smoked in the past 12 months: Yes. Aproximately how many cigarettes per day: 30. Cigars Per Day: 0. Hx Chewing Tobacco Use: No. Initiated information on smoking cessation: Yes. 'Breaking Loose' booklet given : 12/08/18. - Substance & Tx. History. Hx Alcohol Use: Yes. Hx Substance Use : Yes. Substance Use Type: Alcohol. Hx Substance Use Treatment: Yes ([facility]). - Substances Abused. VODKA. Route: Oral. Frequency: Daily. Amount used: 2 PINTS. Age of first use: 14. Date of Last Use: 12/08/18 Medical History: Weight loss history, Syncope history, Seizure history, S/P Neck Farcture history, Asthma, Arthritis history, Anemia history, BPH, GERD, Bilateral Glaucoma history,LBP, L.knee injury history, Ambulates with cane. Psychiatric History: As per computer carries history of Schiuzophrenia, reports has been misdiagnozed with Schizophrenia being under Alcohol influence, denies history of positive and negative psychotic symptoms history, reports depression and insonia, reports taking prior to admission: 'Trazodone 100mg po qhs. Reports unclear psychiatric admission on about 10 years ago, denies suicidal, homicidal history. Denies perceptual disturbances history as well. Physical/Sexual Abuse/Trauma History: Denies Additional Comment: Trazodone 100mg po qhs Mental Status Exam - Mental Status Exam Alert and Oriented to: Person Cognitive Function: Fair Patient Appearance: Well Groomed Mood: Sad Affect: Mood Congruent Patient Behavior: Cooperative Speech Pattern: Delayed Voice Loudness: Mildly Soft/Quiet Thought Process: Goal Oriented Thought Disorder: Being Controlled Hallucinations: Denies Suicidal Ideation: Denies Homicidal Ideation: Denies Insight/Judgement: Fair Sleep: Difficulty falling asleep Appetite: Fair Muscle strength/Tone: Clonus Gait/Station: Deferred Additional Comments: Trazodone 100mg po qhs Psychiatric Findings - Problem List ([place] 1, 2,3) (1) Alcohol dependence with uncomplicated withdrawal Current Visit: Yes Status: Acute (2) Alcohol-induced mood disorder Current Visit: Yes Status: Chronic (3) Gastroesophageal reflux disease Current Visit: Yes Status: Chronic (4) Glaucoma of both eyes Current Visit: Yes Status: Chronic Qualifiers: Glaucoma type: primary angle-closure Primary angle closure glaucoma type: chronic Glaucoma stage: mild stage Qualified Code(s): H40.2231 - Chronic angle-closure glaucoma, bilateral, mild stage Comment: Last eye exam September 2018 (5) Nicotine dependence Current Visit: Yes Status: Chronic Qualifiers: Nicotine product type: cigarettes Substance use status: in withdrawal Qualified Code(s): F17.213 - Nicotine dependence, cigarettes, with withdrawal (6) Alcohol related seizure Current Visit: Yes Status: Suspected (7) Alcohol dependence in early full remission Current Visit: No Status: Acute (8) Bronchitis Current Visit: No Status: Acute (9) Cannabis dependence Current Visit: No Status: Acute (10) Cellulitis of left toe Current Visit: No Status: Acute (11) Cocaine dependence Current Visit: No Status: Acute Qualifiers: Substance use status: uncomplicated Qualified Code(s): F14.20 - Cocaine dependence, uncomplicated (12) Drug-induced mood disorder Current Visit: No Status: Acute (13) Substance induced mood disorder Current Visit: No Status: Acute (14) Syncope Current Visit: No Status: Acute (15) Weight loss Current Visit: No Status: Acute (16) Anemia Current Visit: No Status: Chronic (17) Arthritis Current Visit: No Status: Chronic (18) Asthma Current Visit: No Status: Chronic (19) BPH (benign prostatic hypertrophy) Current Visit: No Status: Chronic Qualifiers: Lower urinary tract symptom presence: unspecified whether lower urinary tract symptoms present Qualified Code(s): N40.0 - Benign prostatic hyperplasia without lower urinary tract symptoms Comment: Has not seen a provider since initiation of flomax (20) Chronic low back pain Current Visit: No Status: Chronic Qualifiers: Back pain laterality: unspecified Sciatica presence: unspecified whether sciatica present Qualified Code(s): M54.5 - Low back pain; G89.29 - Other chronic pain (21) Depression with anxiety Current Visit: No Status: Chronic (22) Non-compliance with treatment Current Visit: No Status: Chronic (23) Paranoid schizophrenia Current Visit: No Status: Chronic Comment: According to records. Diagnosis rejected by the patient. Non-adherent to treatment. Lost to follow up. (24) Schizophrenia, undifferentiated Current Visit: No Status: Chronic Comment: Historical but the patient contests this diagnosis. (25) arthritis of left knee Current Visit: No Status: Chronic
[2018-12-10] MEDS: chlordiazePOXIDE HCL 25 MG CAPSULE PO PRN (15:11)
[2018-12-10] MEDS: traZODone HCL 100 MG TABLET (FP) PO SCH (22:29)
[2018-12-10] MEDS: LATANOPROST 0.005% OPHTH SOLN 2.5ML BOTTLE OU SCH (22:30)
[2018-12-10] MEDS: THIAMINE HCL 100 MG TABLET (FP) PO SCH (22:32)
[2018-12-10] MEDS: chlordiazePOXIDE 5 MG CAPSULE PO SCH (23:08)
[2018-12-11] MEDS: chlordiazePOXIDE 5 MG CAPSULE PO SCH ×3 (06:03→17:41)
[2018-12-11] MEDS: TIMOLOL 0.5% OPHTHALMIC SOL 5 ML BOTTLE OU SCH ×2 (06:04→17:45)
[2018-12-11] MEDS: NICOTINE 21 MG/24 HOURS TOPICAL PATCH TD SCH (10:26)
[2018-12-11] MEDS: PRENATAL VITAMINS W/ FOLIC ACID TABLET (FP) PO SCH (10:26)
[2018-12-11] MEDS: NAPROXEN 500 MG TABLET (FP) PO SCH ×2 (10:26→21:14)
[2018-12-11] MEDS: TAMSULOSIN HCL 0.4 MG CAP PO SCH (10:26)
[2018-12-11] MEDS: RANITIDINE HCL 150 MG TABLET (FP) PO SCH ×2 (10:26→21:14)
[2018-12-11] MEDS: METHYL SALICYLATE/MENTHOL OINT 30 GM TUBE TP SCH ×2 (10:27→21:14)
[2018-12-11] MEDS: FLUTICASONE PROP 0.05% 16 GM NASAL SPRAY NS SCH (10:27)
[2018-12-11] MEDS: CLOTRIMAZOLE 1% CREAM 15 GM TUBE TP SCH ×2 (10:27→21:20)
[2018-12-11] MEDS: diphenhydrAMINE HCL 25 MG CAPSULE (FP) PO PRN ×2 (10:42→21:20)
[2018-12-11] MEDS: MAG HYDROX/AL HYDROX/SIMETH 30 ML UNIT-DOSE CUP PO PRN (10:43)
[2018-12-11] MEDS ORDERED: LATANOPROST 0.005% OPHTH SOLN 2.5ML BOTTLE OU SCH (10:49)
--- NOTE | 2018-12-11 11:30 | PN ---
BHS Progress Note (SOAP) Subjective: agitation sweats Objective: 12/11/18 11:28 Vital Signs Temperature 98.2 F 12/11/18 09:16 Pulse Rate 79 12/11/18 09:16 Respiratory Rate 18 12/11/18 09:16 Blood Pressure 118/73 12/11/18 09:16 O2 Sat by Pulse Oximetry (%) aaox3 ambulating no acute distress Assessment: 12/11/18 11:28 withdrawal sx Plan: continue detox eye drops ordered as per pt request d/c in am.
[2018-12-11 17:25] VITALS: TEMP 98.1
[2018-12-11] MEDS ORDERED: ONDANSETRON 4 MG/2 ML VIAL IM PRN (18:35)
[2018-12-11] MEDS: traZODone HCL 100 MG TABLET (FP) PO SCH (21:14)
[2018-12-11] MEDS: THIAMINE HCL 100 MG TABLET (FP) PO SCH (21:15)
[2018-12-11] MEDS: chlordiazePOXIDE HCL 10 MG CAPSULE PO SCH (22:35)
[2018-12-12] MEDS: TIMOLOL 0.5% OPHTHALMIC SOL 5 ML BOTTLE OU SCH (06:32)
[2018-12-12] MEDS: chlordiazePOXIDE HCL 10 MG CAPSULE PO SCH ×2 (06:32→10:00)
[2018-12-12 07:08] VITALS: BP 125/79; PULSE 61
--- NOTE | 2018-12-12 08:42 | DS ---
[facility] Detox Discharge Summary Admission Date: 12/08/18 Discharge Date: 12/12/18 - History Present History: Alcohol Dependence - Physical Exam Results Vital Signs: Vital Signs Temperature 98.1 F 12/12/18 07:07 Pulse Rate 61 12/12/18 07:07 Respiratory Rate 18 12/12/18 07:07 Blood Pressure 125/79 12/12/18 07:07 O2 Sat by Pulse Oximetry (%) - Treatment Hospital Course: Detox Protocol Followed, Detoxed Safely, Responded well, Discharged Condition Good, Rehab Referral Accepted - Medication Discharge Medications: Ambulatory Orders Latanoprost 0.005% Eye Drops [Xalatan 0.005% Eye Drops -] 1 drop OU HS #1 bottle 06/08/18 Ranitidine [Zantac -] 150 mg PO BID #60 tablet 06/08/18 Tamsulosin HCl [Flomax] 0.4 mg PO DAILY 09/04/18 Clotrimazole [Lotrimin 1% Solution -] 1 applic TP BID 10/17/18 Gabapentin [Neurontin -] 400 mg PO TID 10/17/18 Pantoprazole Sodium [Protonix -] 20 mg PO DAILY 10/17/18 Timolol 0.5% [Timoptic 0.5%] 1 drop OU BID 10/17/18 traZODone HCL [Desyrel -] 100 mg PO HS #30 tablet 10/31/18 - Diagnosis (1) Alcohol dependence with uncomplicated withdrawal Current Visit: Yes Status: Chronic (2) Alcohol-induced mood disorder Current Visit: Yes Status: Chronic (3) Gastroesophageal reflux disease Current Visit: Yes Status: Chronic (4) Glaucoma of both eyes Current Visit: Yes Status: Chronic Qualifiers: Glaucoma type: primary angle-closure Primary angle closure glaucoma type: chronic Glaucoma stage: mild stage Qualified Code(s): H40.2231 - Chronic angle-closure glaucoma, bilateral, mild stage (5) History of neck surgery Current Visit: Yes Status: Chronic (6) Nicotine dependence Current Visit: Yes Status: Chronic Qualifiers: Nicotine product type: cigarettes Substance use status: uncomplicated Qualified Code(s): F17.210 - Nicotine dependence, cigarettes, uncomplicated (7) Use of cane as ambulatory aid Current Visit: Yes Status: Chronic (8) Alcohol related seizure Current Visit: Yes Status: Suspected (9) Alcohol dependence in early full remission Current Visit: No Status: Acute (10) Alcohol-induced sleep disorder Current Visit: No Status: Acute (11) Cannabis dependence Current Visit: No Status: Acute (12) Cocaine dependence Current Visit: Yes Status: Chronic Qualifiers: Substance use status: uncomplicated Qualified Code(s): F14.20 - Cocaine dependence, uncomplicated (13) Disorder of the skin and subcutaneous tissue, unspecified Current Visit: No Status: Acute (14) Drug-induced mood disorder Current Visit: No Status: Acute (15) Insomnia Current Visit: No Status: Acute (16) Substance induced mood disorder Current Visit: No Status: Acute (17) Syncope Current Visit: No Status: Acute (18) Weight loss Current Visit: No Status: Acute (19) Anxiety and depression Current Visit: No Status: Chronic (20) Arthritis Current Visit: No Status: Chronic (21) Asthma Current Visit: No Status: Chronic (22) BPH (benign prostatic hypertrophy) Current Visit: Yes Status: Chronic Qualifiers: Lower urinary tract symptom presence: unspecified whether lower urinary tract symptoms present Qualified Code(s): N40.0 - Benign prostatic hyperplasia without lower urinary tract symptoms (23) Chronic low back pain Current Visit: No Status: Chronic Qualifiers: Back pain laterality: unspecified Sciatica presence: unspecified whether sciatica present Qualified Code(s): M54.5 - Low back pain; G89.29 - Other chronic pain (24) Chronic neck pain Current Visit: No Status: Chronic (25) Depression with anxiety Current Visit: No Status: Chronic (26) Non-compliance with treatment Current Visit: No Status: Chronic (27) Paranoid schizophrenia Current Visit: No Status: Chronic (28) Personal history of other diseases of the musculoskeletal system and connective tissue Current Visit: No Status: Chronic (29) Schizophrenia, undifferentiated Current Visit: No Status: Chronic (30) Status post cataract surgery Current Visit: No Status: Chronic - AMA Did Patient Leave Against Medical Advice: No (referred to [facility] )
[2018-12-12] MEDS: NAPROXEN 500 MG TABLET (FP) PO SCH (09:15)
[2018-12-12] MEDS: PRENATAL VITAMINS W/ FOLIC ACID TABLET (FP) PO SCH (09:16)
[2018-12-12] MEDS: RANITIDINE HCL 150 MG TABLET (FP) PO SCH (09:16)
[2018-12-12] MEDS: NICOTINE 21 MG/24 HOURS TOPICAL PATCH TD SCH (09:30)
[2018-12-12] MEDS: FLUTICASONE PROP 0.05% 16 GM NASAL SPRAY NS SCH (09:30)
[2018-12-12] MEDS: METHYL SALICYLATE/MENTHOL OINT 30 GM TUBE TP SCH (09:30)
[2018-12-12] MEDS: TAMSULOSIN HCL 0.4 MG CAP PO SCH (09:30)
[2018-12-12] MEDS: CLOTRIMAZOLE 1% CREAM 15 GM TUBE TP SCH (10:00)
== END 2018-12-12 10:30 | disposition home or self-care (01) | DRG 774 ==
LOC: YASAS 11:47 → Y6N 22:20
PROC: HZ2ZZZZ Detoxification Services for Substance Abuse Treatment (ICD-10-PCS; principal; 2018-12-08)
DX: F10.230 Alcohol dependence with withdrawal, uncomplicated (principal); F14.20 Cocaine dependence, uncomplicated; F12.20 Cannabis dependence, uncomplicated; F17.210 Nicotine dependence, cigarettes, uncomplicated; F10.24 Alcohol dependence with alcohol-induced mood disorder; F10.282 Alcohol dependence with alcohol-induced sleep disorder; F19.24 Other psychoactive substance dependence with psychoactive substance-induced mood disorder; F20.0 Paranoid schizophrenia; F41.8 Other specified anxiety disorders; F32.9 Major depressive disorder, single episode, unspecified; G47.00 Insomnia, unspecified; H40.2231 Chronic angle-closure glaucoma, bilateral, mild stage; M54.5 Low back pain; M54.2 Cervicalgia; G89.29 Other chronic pain; N40.0 Benign prostatic hyperplasia without lower urinary tract symptoms; M12.9 Arthropathy, unspecified; J45.909 Unspecified asthma, uncomplicated; Z86.69 Personal history of other diseases of the nervous system and sense organs; Z87.39 Personal history of other diseases of the musculoskeletal system and connective tissue
CPT/HCPCS: 36415; 86593

== ENCOUNTER 2018-12-08 16:24 | Emergency (ER) | payer SELFPAY ==
[2018-12-08 16:38] VITALS: BP 116/77; PULSE 73; TEMP 97.5; BMI 27.4
--- NOTE | 2018-12-08 16:57 | PDOC ---
Attending Attestation - HPI HPI: 12/08/18 17:49 58 year old male with past medical history of EtOH abuse, hypertension, diabetes , and history of cervical spine fracture sent in from [facility] s/p supposed fall today. Patient reports last drink was today. He presents to the ER sleepy, but arousable to verbal stimuli. He is a poor historian. Reports a headache but denies any other complaints. Patient is supposedly from [place] and ended up at [facility] today. When he got there, he was complaining of neck pain and was sent to the ER for further evaluation. - Physicial Exam PE: 12/08/18 17:53 GENERAL: Intoxicated, arousable to verbal stimuli, in no acute distress HEAD: No signs of trauma EYES: PERRLA, EOMI, sclera anicteric, conjunctiva clear NECK: Normal ROM without pain, supple, no lymphadenopathy, JVD, or masses LUNGS: Breath sounds equal, clear to auscultation bilaterally. No wheezes, and no crackles HEART: Regular rate and rhythm, normal S1 and S2, no murmurs, rubs or gallops EXTREMITIES: Normal range of motion, no edema. NEUROLOGICAL: Cranial nerves II through XII grossly intact. Normal speech SKIN: Warm, Dry, normal turgor, no rashes or lesions noted. - Medical Decision Making 12/08/18 18:04 Documentation prepared by Carolyne Nogueira, acting as diagnostic medical sonographer for Zuly Jimenez MD. <Carolyne Nogueira - Last Filed: 12/08/18 17:53> - Resident Resident Name: Sathya Echeverria - ED Attending Attestation I have performed the following: I have examined & evaluated the patient, The case was reviewed & discussed with the resident, I agree w/resident's findings & plan, Exceptions are as noted - Medical Decision Making 12/08/18 19:55 Laboratory Tests 12/08/18 12/08/18 12/08/18 17:13 17:13 17:13 WBC 2.8 L Hgb 13.1 Hct 37.6 Plt Count 194 INR 0.88 BUN 6 L Creatinine 0.8 Creatine Kinase 431 H Creatine Kinase Index 0.9 CK-MB (CK-2) 4.2 H Troponin I < 0.02 Alcohol, Quantitative 258.6 H 12/08/18 19:56 Xray - chronic distal radius deformity CXR - no acute findings CT - no fracture or dislocation, no pre vertebral soft tissue swelling Will transfer to [facility] <Zuly Jimenez - Last Filed: 12/12/18 07:30>
--- NOTE | 2018-12-08 17:07 | PDOC ---
History of Present Illness - General Chief Complaint: Injury Stated Complaint: FALL Time Seen by Provider: 12/08/18 16:33 History Source: Patient Exam Limitations: No Limitations - History of Present Illness Initial Comments: 12/08/18 17:00 Patient is 58M with history of etoh abuse last drink today, htn, dm, cervical spine fracture here today from [facility] after reporting that he fell down some stairs several days ago. Patient is intoxicated and not able to give coherent history today. Patient states that he has some pain in his left wrist, which has been swollen for several months. He does not remember what happened today or how he fell, stating that he was too drunk to remember. Denies seizure history. Patient is a poor historian, having to be redirected multiple times to answer question. Past History - Past Medical History COPD: No Seizures: Yes Other medical history: spincal fx in past - Suicide/Smoking/Psychosocial Hx Smoking History: Unknown if ever smoked Have you smoked in the past 12 months: No Information on smoking cessation initiated: No Hx Alcohol Use: Yes Drug/Substance Use Hx: No Review of Systems - Review of Systems Comments:: 12/08/18 17:03 GENERAL/CONSTITUTIONAL: No fever or chills. No weakness. HEAD, EYES, EARS, NOSE AND THROAT: No change in vision. No sore throat. CARDIOVASCULAR: No chest pain or shortness of breath RESPIRATORY: No cough, wheezing, or hemoptysis. GASTROINTESTINAL: No nausea, vomiting, diarrhea or constipation. GENITOURINARY: No dysuria, frequency, or change in urination. MUSCULOSKELETAL: +L wrist pain. No neck or back pain. SKIN: No rash NEUROLOGIC: No headache, vertigo, loss of consciousness, or change in strength/ sensation. HEMATOLOGIC/LYMPHATIC: No anemia, easy bleeding, or history of blood clots. ALLERGIC/IMMUNOLOGIC: No hives or skin allergy. *Physical Exam - Vital Signs Last Vital Signs Temp Pulse Resp BP Pulse Ox 97.5 F L 73 20 116/77 97 12/08/18 16:29 12/08/18 16:29 12/08/18 16:29 12/08/18 16:29 12/08/18 16:29 - Physical Exam Comments: 12/08/18 17:07 GENERAL: Awake, alert, and fully oriented, in no acute distress L WRIST: ?cyst mass on anterior wrist, nontender, swollen, no abrasions/lacs HEAD: No signs of trauma, normocephalic, atraumatic EYES: PERRLA, EOMI, sclera anicteric, conjunctiva clear ENT: Auricles normal inspection, hearing grossly normal, nares patent, oropharynx clear without exudates. Moist mucosa NECK: Decreased ROM, linear surgical scar, nontender midline LUNGS: No distress, speaks full sentences, clear to auscultation bilaterally HEART: Regular rate and rhythm, normal S1 and S2, no murmurs, rubs or gallops, peripheral pulses normal and equal bilaterally. ABDOMEN: Soft, nontender, normoactive bowel sounds. No guarding, no rebound. No masses EXTREMITIES: Normal inspection, Normal range of motion, no edema. No clubbing or cyanosis. NEUROLOGICAL: Cranial nerves II through XII grossly intact. Slurred speech, no focal sensorimotor deficits SKIN: Warm, Dry, normal turgor, no rashes or lesions noted. Moderate Sedation - Procedure Monitoring Vital Signs: Procedure Monitoring Vital Signs Temperature 97.5 F L 12/08/18 16:29 Pulse Rate 73 12/08/18 16:29 Respiratory Rate 20 12/08/18 16:29 Blood Pressure 116/77 12/08/18 16:29 O2 Sat by Pulse Oximetry (%) 97 12/08/18 16:29 ED Treatment Course - LABORATORY CBC & Chemistry Diagram: 12/08/18 17:13 12/08/18 17:13 - RADIOLOGY Radiology Studies Ordered: Category Date Time Status CERVICAL SPINE CT W/O CONTR [CT] Stat CT Scan 12/08/18 16:[address] WITHOUT CONTRAST [CT] Stat CT Scan 12/08/18 16:55 Ordered CHEST PA & LAT [RAD] Stat Radiology 12/08/18 16:55 Ordered WRIST W/HAND-LEFT* [RAD] Stat Radiology 12/08/18 16:55 Ordered Medical Decision Making - Medical Decision Making 12/08/18 17:10 Patient is 58M here today with alcohol intox and report of trauma. Will evaluate with basic labs, ekg, cxr, wrist x-ray, head ct, cervical spine ct. Vitals normal and stable. No acute trauma found on exam, patient exposed. 12/08/18 20:18 CBC normal. CMP reassuring. Head CT normal. Neck CT shows no acute fracture. Wrist x-ray shows old, poorly healed fracture. Nothing acute. ETOH 200s, patient has sobered up, tolerating PO. Safe to detox. 12/08/18 21:30 D/w nursing matrix supervisor at [facility], bed available. *DC/Admit/Observation/Transfer Diagnosis at time of Disposition: Intoxication - Discharge Dispostion Disposition: HOME Condition at time of disposition: Good Decision to Admit order: No - Referrals - Patient Instructions Additional Instructions: Please follow up with your primary care provider. Please go to detox as planned, and good luck in your sobriety. - Post Discharge Activity
[2018-12-08 18:11] LABS: BASO % 0.7 % (0-2.0); EOS % 2.4 % (0-4.5); HEMATOCRIT 37.6 % (35.4-49); HEMOGLOBIN 13.1 GM/dL (11.7-16.9); LYMPH % 36.7 % (8-40); MCHC 34.7 g/dl (32.0-35.9); MEAN CELL VOLUME 86.5 fl (80-96); MEAN PLT VOLUME 8.3 fl (7.5-11.1); MONO % 11.1 % (3.8-10.2); NEUT % 49.1 % (42.8-82.8); PLATELET COUNT 194 K/MM3 (134-434); RBC 4.34 M/mm3 (4.00-5.60); RDW 15.5 % (11.9-15.9); WHITE BLOOD COUNT 2.8 K/mm3 (4.0-10.0)
[2018-12-08 18:25] LABS: INR 0.88 (0.83-1.09); PROTHROMBIN TIME (PATIENT) 10.4 SEC (9.7-13.0)
[2018-12-08 18:42] LABS: ALBUMIN 3.6 g/dl (3.4-5.0); ALK PHOS 113 U/L (45-117); ANION GAP 8 MMOL/L (8-16); BILIRUBIN,TOTAL 0.2 mg/dL (0.2-1); BLOOD UREA NITROGEN 6 mg/dL (7-18); CALCIUM 8.4 mg/dL (8.5-10.1); CHLORIDE 102 mmol/L (98-107); CO2 32 mmol/L (21-32); CREATININE 0.8 mg/dL (0.55-1.3); GLUCOSE,RANDOM 87 mg/dL (74-106); MAGNESIUM 1.9 mg/dL (1.8-2.4); POTASSIUM 3.7 mmol/L (3.5-5.1); SGOT/AST 30 U/L (15-37); SGPT/ALT 24 U/L (13-61); SODIUM 142 mmol/L (136-145); TOT PROT 7.5 g/dl (6.4-8.2)
--- NOTE | 2018-12-09 08:40 | EKG ---
Test Reason : Blood Pressure : / mmHG Vent. Rate : 100 BPM Atrial Rate : 100 BPM P-R Int : 160 ms QRS Dur : 090 ms QT Int : 372 ms P-R-T Axes : 071 053 075 degrees QTc Int : 479 ms NORMAL SINUS RHYTHM CANNOT RULE OUT INFERIOR INFARCT , AGE UNDETERMINED ABNORMAL ECG NO PREVIOUS ECGS AVAILABLE Confirmed by RACHEAL MURPHY MD ([id number]) on 12/09/2018 8:40:14 AM Referred By: Confirmed By:RACHEAL MURPHY MD
== END 2018-12-08 21:43 | disposition home or self-care (01) ==
LOC: MERGE 16:24 → JER 16:24
DX: F10.120 Alcohol abuse with intoxication, uncomplicated (principal); Y90.9 Presence of alcohol in blood, level not specified; I10 Essential (primary) hypertension; E11.9 Type 2 diabetes mellitus without complications; W19.XXXA Unspecified fall, initial encounter; Y93.89 Activity, other specified; Y92.89 Other specified places as the place of occurrence of the external cause; Y99.8 Other external cause status
CPT/HCPCS: 36415; 70450-TC; 71046-TC-FY; 72125-TC; 73110-TC-LR-FY; 73130-TC-LT-FY; 80053; 80307; 82550; 82553; 83735; 84484; 85025; 85610; 93005; 93010; 99281-25

== ENCOUNTER 2019-01-10 11:55 | Inpatient (IN) | payer OTHER ==
[2019-01-10 14:49] VITALS: BMI 26.7
--- NOTE | 2019-01-10 15:33 | HP ---
CIWA Score Nausea/Vomitin-No Nausea/No Vomiting Muscle Tremors: 2 Anxiety: 3 Agitation: 3 Paroxysmal Sweats: No Perspiration Orientation: 3-Disoriented Date>2 days Tacttile Disturbances: 2-Mild Itch/Numbness/Burn Auditory Disturbances: 0-None Visual Disturbances: 0-None Headache: 2-Mild CIWA-Ar Total Score: 15 - Admission Criteria [facility] Guidelines: Admission for Medically Managed Detox: Requires at least one of the followin. CIWA greater than 12 2. Seizures within the past 24 hours 3. Delirium tremens within the past 24 hours 4. Hallucinations within the past 24 hours 5. Acute intervention needed for co occurring medical disorder 6. Acute intervention needed for co occurring psychiatric disorder 7. Severe withdrawal that cannot be handled at a lower level of care (continued vomiting, continued diarrhea, abnormal vital signs) requiring intravenous medication and/or fluids 8. Admission ROS [facility] Chief Complaint: ETOH WITHDRAWAL SYMPTOMS Allergies/Adverse Reactions: Allergies Allergy/AdvReac Type Severity Reaction Status Date / Time metoclopramide HCl Allergy Severe Swelling Verified 12/08/18 22:29 [From Reglan] Penicillins Allergy Severe Hives Verified 12/08/18 22:29 shellfish derived Allergy Severe Swelling Verified 12/08/18 22:29 orange juice AdvReac Mild Rash Verified 12/08/18 22:29 History of Present Illness: PATIENT PRESENTS WITH ETOH WITHDRAWAL SYMPTOMS. PATIENT IS KNOWN TO [facility] AND HAS HAD MULTIPLE ADMISSIONS TO [facility]. LAST ADMISSION TO DETOX 11/2017. PATIENT WENT TO [facility] LAST NIGHT FOR ETOH WITHDRAWAL SX AND GIVEN LIBRIUM. UDS + BZO.PATIENT STARTED DRINKING AT AGE 14 AND DRINKS 3 FIFTHS OF LIQUOR DAILY, LAST DRINK TODAY. MK 0.177. PATIENT REPORTS + HX OF SEIZURES, FALLS, BLACKOUTS AND BINGE DRINKING. DRINKS FIRST THING IN THE MORNING. PMH INCLUDES TOBACCO USE , GLAUCOMA, CATARACTS, GERD, ASTHMA AND PARANOID SCHIZOPHRENIA. PATIENT DENIES SI/HI AND SUICIDE ATTEMPTS. Exam Limitations: Intoxication - Ebola screening Have you traveled outside of the country in the last 21 days: No Have you had contact with anyone from an Ebola affected area: No Have you been sick,other than usual withdrawal symptoms: No Do you have a fever: No - Review of Systems Constitutional: Changes in sleep EENT: reports: Cataracts, Other (GLAUCOMA) Respiratory: reports: No Symptoms reported Cardiac: reports: No Symptoms Reported GI: reports: Poor Fluid Intake, Abdominal cramping : reports: Frequency (DEPENDS ON ETOH INTAKE) Musculoskeletal: reports: Back Pain, Joint Pain, Muscle Pain Integumentary: reports: No Symptoms Reported Neuro: reports: Headache, Numbness, Seizure, Tingling, Tremors Endocrine: reports: No Symptoms Reported Hematology: reports: No Symptoms Reported Psychiatric: reports: Anxious, other (PARANOID SCHIZOPHRENIA) Patient History - Patient Medical History Hx Anemia: No Hx Asthma: No Hx Chronic Obstructive Pulmonary Disease (COPD): No Hx Cancer: No Hx Cardiac Disorders: No Hx Congestive Heart Failure: No Hx Hypertension: No Hx Hypercholesterolemia: No Hx Pacemaker: No HX Cerebrovascular Accident: No Hx Seizures: Yes Hx Dementia: No Hx Diabetes: No Hx Gastrointestinal Disorders: Yes (GASTRIC ULCER) Hx Liver Disease: No Hx Genitourinary Disorders: No Hx Sexually Transmitted Disorders: No Hx Renal Disease (ESRD): No Hx Thyroid Disease: No Hx Human Immunodeficiency Virus (HIV): No (05/14 negative ) Hx Hepatitis C: No Hx Depression: Yes (Denies suicide or violent ideation) Hx Suicide Attempt: No Hx Bipolar Disorder: No Hx Schizophrenia: No - Patient Surgical History Past Surgical History: Yes Hx Neurologic Surgery: Yes (C-SPINE FUSION IN 2016) Hx Cataract Extraction: No Hx Cardiac Surgery: No Hx Lung Surgery: No Hx Breast Surgery: No Hx Breast Biopsy: No Hx Abdominal Surgery: No Hx Appendectomy: No Hx Cholecystectomy: No Hx Genitourinary Surgery: No Hx Section: No Hx Orthopedic Surgery: Yes (Sx bilateral wrist and R ankle sx; ON THE NECK) Other Surgical History: HE FELL DOWN 4 DAYS AGO AND INURED THE SCALP - STAPLED Anesthesia Reaction: No - PPD History Date: 06/05/18 Results: 0 MM PPD to be Administered?: No - Smoking Cessation Smoking history: Unknown if ever smoked Have you smoked in the past 12 months: No Aproximately how many cigarettes per day: 30 Cigars Per Day: 0 Hx Chewing Tobacco Use: No Initiated information on smoking cessation: Yes 'Breaking Loose' booklet given: 01/10/19 - Substance & Tx. History Hx Alcohol Use: Yes Hx Substance Use: No Substance Use Type: Alcohol Hx Substance Use Treatment: Yes - Substances Abused Alcohol Route: Oral Frequency: Daily Amount used: 3 FIFTHS Age of first use: 14 Date of Last Use: 01/10/19 Family Disease History - Family Disease History Family Disease History: Other: Father (alcohol,), Mother (alcohol), Brother (alcohol), Sister (alcohol) Admission Physical Exam [facility] - Vital Signs Vital Signs: Vital Signs - 24 hr 01/10/19 14:45 Temperature 96 F L Pulse Rate 98 H Respiratory 20 Rate Blood Pressure 115/72 - Physical General Appearance: Yes: Appropriately Dressed, Disheveled, Intoxicated, Tremorous, Anxious HEENTM: Yes: EOMI, Hearing grossly Normal, Normal ENT Inspection, Normocephalic , Normal Voice, MARISOL, Pharynx Normal Respiratory: Yes: Chest Non-Tender, Lungs Clear, Normal Breath Sounds, No Respiratory Distress, No Accessory Muscle Use Neck: Yes: No masses,lesions,Nodules, Supple, Trachea in good position Breast: Yes: Breast Exam Deferred Cardiology: Yes: Regular Rhythm, Regular Rate, S1, S2 Abdominal: Yes: Normal Bowel Sounds, Non Tender, Soft Genitourinary: Yes: Frequency, Incontinient, Nocturia Back: Yes: Normal Inspection, Muscle Spasm Musculoskeletal: Yes: Back pain, Joint Stiffness, Other (AMBULATES WITH CANE) Extremities: Yes: Non-Tender, Tremors, Swelling (TRACE EDEMA BILATERAL ANKLES) 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: 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: 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, Alert, Normal Response, Disoriented ( DUE TO INTOXICATION UNABLE TO PROVIDE CORRECT DATE), Other (HX OF PARANOID SCHIZOPHRENIA) Integumentary: Yes: Normal Color, Dry, Warm Lymphatic: Yes: Within Normal Limits - Diagnostic (1) Alcohol dependence with uncomplicated withdrawal Current Visit: Yes Status: Acute (2) BPH (benign prostatic hypertrophy) Current Visit: Yes Status: Chronic Qualifiers: Lower urinary tract symptom presence: unspecified whether lower urinary tract symptoms present Qualified Code(s): N40.0 - Benign prostatic hyperplasia without lower urinary tract symptoms Comment: Has not seen a provider since initiation of flomax (3) Gastroesophageal reflux disease Current Visit: Yes Status: Chronic (4) Glaucoma of both eyes Current Visit: Yes Status: Chronic Qualifiers: Glaucoma type: primary angle-closure Primary angle closure glaucoma type: chronic Glaucoma stage: mild stage Qualified Code(s): H40.2231 - Chronic angle-closure glaucoma, bilateral, mild stage Comment: Last eye exam September 2018 (5) Nicotine dependence Current Visit: Yes Status: Chronic Qualifiers: Nicotine product type: cigarettes Substance use status: uncomplicated Qualified Code(s): F17.210 - Nicotine dependence, cigarettes, uncomplicated (6) Paranoid schizophrenia Current Visit: Yes Status: Chronic Comment: According to records. Diagnosis rejected by the patient. Non-adherent to treatment. Lost to follow up. (7) Use of cane as ambulatory aid Current Visit: Yes Status: Chronic Cleared for Admission S - Detox or Rehab [facility] Level of Care: Medically Managed Detox Regimen/Protocol: Librium [facility] Breath Alcohol Content Breath Alcohol Content: 0.177 Urine Drug Screen - Results Drug Screen Negative: No Urine Drug Screen Results: BZO-Benzodiazepines Inpatient Rehab Admission - Rehab Decision to Admit Inpatient rehab admission?: No
[2019-01-10] MEDS ORDERED: MAGNESIUM CITRATE 300 ML BOTTLE PO PRN (15:44)
[2019-01-10] MEDS ORDERED: MAGNESIUM HYDROX 2400MG/30ML ORAL SUSPENSION 30 ML CUP PO PRN (15:44)
[2019-01-10] MEDS ORDERED: NICOTINE POLACRILEX 2 MG GUM BC PRN (15:44)
[2019-01-10] MEDS ORDERED: MENTHOL/PHENOL 1 EACH UD MM PRN (15:44)
[2019-01-10] MEDS ORDERED: P-EPHED 60MG/TRIPROLIDI 2.5MG TABLET PO PRN (15:44)
[2019-01-10] MEDS ORDERED: LOPERAMIDE HCL 2 MG CAPSULE PO PRN (15:44)
[2019-01-10] MEDS ORDERED: IBUPROFEN 400 MG TABLET (FP) PO PRN (15:44)
[2019-01-10] MEDS ORDERED: hydrOXYzine PAMOATE 50 MG CAPSULE (FP) PO PRN (15:44)
[2019-01-10] MEDS ORDERED: MAG HYDROX/AL HYDROX/SIMETH 30 ML UNIT-DOSE CUP PO PRN (15:44)
[2019-01-10] MEDS ORDERED: chlordiazePOXIDE HCL 25 MG CAPSULE PO PRN (15:48)
[2019-01-10] MEDS ORDERED: MELATONIN 5 MG TABLETS PO PRN (22:00)
[2019-01-10] MEDS: CYCLOBENZAPRINE HCL 10 MG TABLET (FP) PO SCH (22:27)
[2019-01-10] MEDS: TIMOLOL 0.5% OPHTHALMIC SOL 5 ML BOTTLE OU SCH (22:28)
[2019-01-10] MEDS: chlordiazePOXIDE HCL 25 MG CAPSULE PO SCH (22:28)
[2019-01-10] MEDS: THIAMINE HCL 100 MG TABLET (FP) PO SCH (22:28)
[2019-01-10] MEDS: RANITIDINE HCL 150 MG TABLET (FP) PO SCH (22:28)
[2019-01-10] MEDS: LATANOPROST 0.005% OPHTH SOLN 2.5ML BOTTLE OU SCH (22:30)
[2019-01-11] MEDS: chlordiazePOXIDE HCL 25 MG CAPSULE PO SCH ×4 (05:15→22:20)
[2019-01-11] MEDS: CYCLOBENZAPRINE HCL 10 MG TABLET (FP) PO SCH (05:16)
--- NOTE | 2019-01-11 09:47 | CONSULT ---
[facility] Psychiatric Consult - Data Date of interview: 01/11/19 Admission source: [facility] Identifying data: This is one of the multiple admissions to [facility] for this 58 yo AA single homeless male,supported by [employer](?). Substance Abuse History: Reports drinking since 14 yo,vodka1/2 pint daily, cocaine /crack since 23 yo on and off. Medical History: GERD,Glaucoma,Atrhtritis,H/O cervical fusion,BPH. Psychiatric History: First contact with Psychiatrist was at 8 yo due to severe depression,patient was admitted to psychiatric unit,.He was dx with Schizoaffective disorder.Multiple psychiatric hospitalizations.One suicidal attempt reported.No psychiatric OPD follow up care,obtain psych medications from her PCP at [facility].Patient is willing to restart:Trazodone 100 mg po hs,Zoloft 50 mg po dailouy and Vistaril 50 mg po qid for anxiety PRN. Physical/Sexual Abuse/Trauma History: Patient denies Mental Status Exam - Mental Status Exam Alert and Oriented to: Time, Place, Person Cognitive Function: Grossly Intact Patient Appearance: Unkempt Mood: Sad Affect: Mood Congruent, Labile Patient Behavior: Cooperative Speech Pattern: Clear Voice Loudness: Normal Thought Process: Goal Oriented Thought Disorder: Not Present Hallucinations: Denies Suicidal Ideation: Denies Homicidal Ideation: Denies Insight/Judgement: Fair Sleep: Difficulty falling asleep Appetite: Fair Muscle strength/Tone: Normal Gait/Station: Normal Psychiatric Findings - Problem List ([place] 1, 2,3) (1) Alcohol dependence with uncomplicated withdrawal Current Visit: Yes Status: Chronic (2) BPH (benign prostatic hypertrophy) Current Visit: Yes Status: Chronic Qualifiers: Lower urinary tract symptom presence: unspecified whether lower urinary tract symptoms present Qualified Code(s): N40.0 - Benign prostatic hyperplasia without lower urinary tract symptoms Comment: Has not seen a provider since initiation of flomax (3) Gastroesophageal reflux disease Current Visit: Yes Status: Chronic (4) Glaucoma of both eyes Current Visit: Yes Status: Chronic Qualifiers: Glaucoma type: primary angle-closure Primary angle closure glaucoma type: chronic Glaucoma stage: mild stage Qualified Code(s): H40.2231 - Chronic angle-closure glaucoma, bilateral, mild stage Comment: Last eye exam September 2018 (5) Nicotine dependence Current Visit: Yes Status: Chronic Qualifiers: Nicotine product type: cigarettes Substance use status: uncomplicated Qualified Code(s): F17.210 - Nicotine dependence, cigarettes, uncomplicated (6) Paranoid schizophrenia Current Visit: Yes Status: Chronic Comment: According to records. Diagnosis rejected by the patient. Non-adherent to treatment. Lost to follow up.
[2019-01-11] MEDS: TAMSULOSIN HCL 0.4 MG CAP PO SCH (10:24)
[2019-01-11] MEDS: RANITIDINE HCL 150 MG TABLET (FP) PO SCH ×2 (10:24→22:20)
[2019-01-11] MEDS: PRENATAL VITAMINS W/ FOLIC ACID TABLET (FP) PO SCH (10:24)
[2019-01-11] MEDS: NICOTINE 21 MG/24 HOURS TOPICAL PATCH TD SCH (10:24)
[2019-01-11] MEDS: TIMOLOL 0.5% OPHTHALMIC SOL 5 ML BOTTLE OU SCH ×2 (10:24→22:21)
[2019-01-11] MEDS: PANTOPRAZOLE 20 MG TABLET (FP) PO SCH (10:26)
[2019-01-11] MEDS: SERTRALINE HCL 50 MG TABLET (FP) PO SCH (10:26)
[2019-01-11] MEDS: ACETAMINOPHEN 325 MG TABLET (FP) PO PRN (11:01)
[2019-01-11 12:23] LABS: ALBUMIN 3.6 g/dl (3.4-5.0); ALK PHOS 116 U/L (45-117); ANION GAP 9 MMOL/L (8-16); BILIRUBIN,TOTAL 0.6 mg/dL (0.2-1); BLOOD UREA NITROGEN 6 mg/dL (7-18); CALCIUM 8.6 mg/dL (8.5-10.1); CHLORIDE 101 mmol/L (98-107); CO2 31 mmol/L (21-32); CREATININE 0.8 mg/dL (0.55-1.3); GLUCOSE,RANDOM 76 mg/dL (74-106); POTASSIUM 3.7 mmol/L (3.5-5.1); SGOT/AST 29 U/L (15-37); SGPT/ALT 18 U/L (13-61); SODIUM 140 mmol/L (136-145); TOT PROT 7.3 g/dl (6.4-8.2)
[2019-01-11] MEDS: CYCLOBENZAPRINE HCL 5 MG TABLET PO SCH ×2 (14:10→22:20)
--- NOTE | 2019-01-11 18:05 | PN ---
[facility] CIWA - CIWA Score Nausea/Vomitin-No Nausea/No Vomiting Muscle Tremors: None Anxiety: 3 Agitation: 0-Normal Activity Paroxysmal Sweats: No Perspiration Orientation: 2-Disoriented Date<2 days Tacttile Disturbances: 0-None Auditory Disturbances: 1-Very Mild Visual Disturbances: 2-Mild Sensitivity Headache: 4-Moderately Severe CIWA-Ar Total Score: 12 S Progress Note (SOAP) Subjective: H/A, Stomach Cramping, Fatigue, Diarrhea. Objective: PATIENT A & O X 2 (UNCERTAIN ABOUT CURRENT DAY / DATE). PATIENT OBSERVED AMBULATING ON UNIT. IN NO ACUTE DISTRESS. 01/11/19 18:03 Vital Signs Temperature 97 F L 01/11/19 17:49 Pulse Rate 88 01/11/19 17:49 Respiratory Rate 18 01/11/19 17:49 Blood Pressure 116/66 01/11/19 17:49 O2 Sat by Pulse Oximetry (%) Laboratory Tests 01/11/19 01/11/19 07:00 07:00 WBC Cancelled Corrected WBC (auto) Cancelled RBC Cancelled Hgb Cancelled Hct Cancelled MCV Cancelled MCH Cancelled MCHC Cancelled RDW Cancelled Plt Count Cancelled MPV Cancelled Manual Slide Review Cancelled Platelet Comment Cancelled Sodium 140 Potassium 3.7 Chloride 101 Carbon Dioxide 31 Anion Gap 9 BUN 6 L Creatinine 0.8 Creat Clearance w eGFR > 60 Random Glucose 76 Calcium 8.6 Total Bilirubin 0.6 AST 29 ALT 18 Alkaline Phosphatase 116 Total Protein 7.3 Albumin 3.6 LABS NOTED. RPR RESULT PENDING. RECEIVED NOTICE FROM [facility] THAT FIRST CBC DRAWN HEMOLYZED. REPEAT CBC ORDERED. RESULTS PENDING. 01/11/19 18:04 Assessment: 01/11/19 18:03 WITHDRAWAL SYMPTOMS. Plan: CONTINUE DETOX. INCREASE DAILY PO FLUID INTAKE. PRN IMMODIUM PO FOR DIARRHEA.
[2019-01-11 19:19] LABS: URINE APPEARANCE CLEAR; URINE BILIRUBIN NEGATIVE (<2.0 mg/dL); URINE COLOR DKYELLOW; URINE GLUCOSE (UA) NEGATIVE (NEGATIVE); URINE KETONE NEGATIVE (NEGATIVE); URINE LEUK ESTERASE NEGATIVE (NEGATIVE); URINE NITRITE NEGATIVE (NEGATIVE); URINE PROTEIN 2+ (NEGATIVE); URINE UROBILINOGEN 4.0 E.U/dl mg/dL (0.2-1.0)
[2019-01-11 19:28] LABS: EPI CELLS RARE /HPF (FEW); URINE HYALINE CAST 4 /lpf; URINE MUCUS RARE
[2019-01-11] MEDS: THIAMINE HCL 100 MG TABLET (FP) PO SCH (22:20)
[2019-01-11] MEDS: traZODone HCL 100 MG TABLET (FP) PO SCH (22:20)
[2019-01-11] MEDS: LATANOPROST 0.005% OPHTH SOLN 2.5ML BOTTLE OU SCH (22:22)
[2019-01-12] MEDS: chlordiazePOXIDE HCL 25 MG CAPSULE PO SCH ×3 (06:00→17:45)
[2019-01-12] MEDS: CYCLOBENZAPRINE HCL 5 MG TABLET PO SCH ×3 (06:22→22:08)
[2019-01-12] MEDS: SERTRALINE HCL 50 MG TABLET (FP) PO SCH (10:30)
[2019-01-12] MEDS: RANITIDINE HCL 150 MG TABLET (FP) PO SCH ×2 (10:30→22:09)
[2019-01-12] MEDS: PRENATAL VITAMINS W/ FOLIC ACID TABLET (FP) PO SCH (10:30)
[2019-01-12] MEDS: NICOTINE 21 MG/24 HOURS TOPICAL PATCH TD SCH (10:30)
[2019-01-12] MEDS: TAMSULOSIN HCL 0.4 MG CAP PO SCH (10:30)
[2019-01-12] MEDS: TIMOLOL 0.5% OPHTHALMIC SOL 5 ML BOTTLE OU SCH ×3 (10:30→22:36)
[2019-01-12] MEDS: PANTOPRAZOLE 20 MG TABLET (FP) PO SCH (10:31)
[2019-01-12] MEDS: ACETAMINOPHEN 325 MG TABLET (FP) PO PRN ×2 (10:33→15:17)
[2019-01-12 12:47] LABS: BASO % 0.5 % (0-2.0); HEMATOCRIT 36.2 % (35.4-49); HEMOGLOBIN 12.2 GM/dL (11.7-16.9); LYMPH % 18.8 % (8-40); MCH 30.7 pg (25.7-33.7); MCHC 33.7 g/dl (32.0-35.9); MONO % 8.5 % (3.8-10.2); NEUT % 69.2 % (42.8-82.8); PLATELET COUNT 115 K/MM3 (134-434); RBC 3.98 M/mm3 (4.00-5.60); RDW 16.5 % (11.9-15.9); WHITE BLOOD COUNT 4.6 K/mm3 (4.0-10.0)
[2019-01-12] MEDS: FLUTICASONE PROP 0.05% 16 GM NASAL SPRAY NS SCH ×2 (15:15→22:09)
--- NOTE | 2019-01-12 15:53 | PN ---
S CIWA - CIWA Score Nausea/Vomitin Muscle Tremors: 3 Anxiety: 3 Agitation: 0-Normal Activity Paroxysmal Sweats: No Perspiration Orientation: 2-Disoriented Date<2 days Tacttile Disturbances: 0-None Auditory Disturbances: 0-None Visual Disturbances: 2-Mild Sensitivity Headache: 0-None Present CIWA-Ar Total Score: 13 BHS Progress Note (SOAP) Subjective: Anxious, Tremors, Fatigue, Nasal Congestion, Stomach Cramping, Nausea. Objective: PATIENT A & O X 2 (UNCERTAIN ABOUT CURRENT DAY / DATE). PATIENT OBSERVED AMBULATING ON UNIT WITH ASSISTANCE OF A CANE. IN NO ACUTE DISTRESS. 01/12/19 15:51 Vital Signs Temperature 96.4 F L 01/12/19 14:50 Pulse Rate 79 01/12/19 14:50 Respiratory Rate 18 01/12/19 14:50 Blood Pressure 104/68 01/12/19 14:50 O2 Sat by Pulse Oximetry (%) Laboratory Tests 01/11/19 01/11/19 01/11/19 00:00 07:00 07:00 WBC Cancelled Corrected WBC (auto) Cancelled RBC Cancelled Hgb Cancelled Hct Cancelled MCV Cancelled MCH Cancelled MCHC Cancelled RDW Cancelled Plt Count Cancelled MPV Cancelled Absolute Neuts (auto) Neutrophils % Lymphocytes % Monocytes % Eosinophils % Basophils % Nucleated RBC % Manual Slide Review Cancelled Platelet Comment Cancelled Sodium 140 Potassium 3.7 Chloride 101 Carbon Dioxide 31 Anion Gap 9 BUN 6 L Creatinine 0.8 Creat Clearance w eGFR > 60 Random Glucose 76 Calcium 8.6 Total Bilirubin 0.6 AST 29 ALT 18 Alkaline Phosphatase 116 Total Protein 7.3 Albumin 3.6 Urine Color Dkyellow Urine Appearance Clear Urine pH 6.0 Ur Specific [place] 1.015 Urine Protein 2+ H Urine Glucose (UA) Negative Urine Ketones Negative Urine Blood Negative Urine Nitrite Negative Urine Bilirubin Negative Urine Urobilinogen 4.0 e.u/dl Ur Leukocyte Esterase Negative Urine WBC (Auto) <1 Urine RBC (Auto) 1 Ur Epithelial Cells Rare Hyaline Casts 4 Urine Mucus Rare RPR Titer 01/11/19 01/12/19 07:00 07:45 WBC 4.6 Corrected WBC (auto) RBC 3.98 L Hgb 12.2 Hct 36.2 MCV 91.0 MCH 30.7 MCHC 33.7 RDW 16.5 H Plt Count 115 L D MPV 10.0 D Absolute Neuts (auto) 3.2 Neutrophils % 69.2 D Lymphocytes % 18.8 D Monocytes % 8.5 Eosinophils % 3.0 Basophils % 0.5 Nucleated RBC % 0 Manual Slide Review Platelet Comment No plt clumped seen Sodium Potassium Chloride Carbon Dioxide Anion Gap BUN Creatinine Creat Clearance w eGFR Random Glucose Calcium Total Bilirubin AST ALT Alkaline Phosphatase Total Protein Albumin Urine Color Urine Appearance Urine pH Ur Specific [place] Urine Protein Urine Glucose (UA) Urine Ketones Urine Blood Urine Nitrite Urine Bilirubin Urine Urobilinogen Ur Leukocyte Esterase Urine WBC (Auto) Urine RBC (Auto) Ur Epithelial Cells Hyaline Casts Urine Mucus RPR Titer Nonreactive LABS NOTED. Assessment: 01/12/19 15:51 WITHDRAWAL SYMPTOMS. THROMBOCYTOPENIA. 01/12/19 15:52 Plan: CONTINUE DETOX. INCREASE DAILY PO FLUID INTAKE. FLONASE IH FOR NASAL CONGESTION.
[2019-01-12] MEDS: traZODone HCL 100 MG TABLET (FP) PO SCH (22:08)
[2019-01-12] MEDS: chlordiazePOXIDE 5 MG CAPSULE PO SCH (22:08)
[2019-01-12] MEDS: THIAMINE HCL 100 MG TABLET (FP) PO SCH (22:09)
[2019-01-12] MEDS: LATANOPROST 0.005% OPHTH SOLN 2.5ML BOTTLE OU SCH (22:13)
[2019-01-13] MEDS: CYCLOBENZAPRINE HCL 5 MG TABLET PO SCH ×3 (05:34→22:05)
[2019-01-13] MEDS: chlordiazePOXIDE 5 MG CAPSULE PO SCH ×3 (05:35→17:39)
[2019-01-13] MEDS: TIMOLOL 0.5% OPHTHALMIC SOL 5 ML BOTTLE OU SCH ×2 (10:11→17:44)
[2019-01-13] MEDS: RANITIDINE HCL 150 MG TABLET (FP) PO SCH ×2 (10:11→22:05)
[2019-01-13] MEDS: PRENATAL VITAMINS W/ FOLIC ACID TABLET (FP) PO SCH (10:11)
[2019-01-13] MEDS: SERTRALINE HCL 50 MG TABLET (FP) PO SCH (10:11)
[2019-01-13] MEDS: NICOTINE 21 MG/24 HOURS TOPICAL PATCH TD SCH (10:12)
[2019-01-13] MEDS: TAMSULOSIN HCL 0.4 MG CAP PO SCH (10:12)
[2019-01-13] MEDS: PANTOPRAZOLE 20 MG TABLET (FP) PO SCH (10:12)
[2019-01-13] MEDS: ACETAMINOPHEN 325 MG TABLET (FP) PO PRN (10:13)
[2019-01-13] MEDS: FLUTICASONE PROP 0.05% 16 GM NASAL SPRAY NS SCH ×2 (10:13→22:04)
--- NOTE | 2019-01-13 10:36 | PN ---
S CIWA - CIWA Score Nausea/Vomitin-No Nausea/No Vomiting Muscle Tremors: 2 Anxiety: 2 Agitation: 2 Paroxysmal Sweats: 1-Minimal Palms Moist Orientation: 0-Oriented Tacttile Disturbances: 0-None Auditory Disturbances: 0-None Visual Disturbances: 0-None Headache: 1-Very Mild CIWA-Ar Total Score: 8 S Progress Note (SOAP) Subjective: ambulate with cane on hallway social with peers in day room feeling better less tremor mild sweating anxious about discharge Objective: 01/13/19 10:35 Vital Signs Temperature 97.4 F L 01/13/19 09:44 Pulse Rate 75 01/13/19 09:44 Respiratory Rate 20 01/13/19 09:44 Blood Pressure 128/89 01/13/19 09:44 O2 Sat by Pulse Oximetry (%) Laboratory Last Values WBC 4.6 K/mm3 (4.0-10.0) 01/12/19 07:45 Corrected WBC (auto) Cancelled 01/11/19 07:00 RBC 3.98 M/mm3 (4.00-5.60) L 01/12/19 07:45 Hgb 12.2 GM/dL (11.7-16.9) 01/12/19 07:45 Hct 36.2 % (35.4-49) 01/12/19 07:45 MCV 91.0 fl (80-96) 01/12/19 07:45 MCH 30.7 pg (25.7-33.7) 01/12/19 07:45 MCHC 33.7 g/dl (32.0-35.9) 01/12/19 07:45 RDW 16.5 % (11.9-15.9) H 01/12/19 07:45 Plt Count 115 K/MM3 (134-434) L D 01/12/19 07:45 MPV 10.0 fl (7.5-11.1) D 01/12/19 07:45 Absolute Neuts (auto) 3.2 K/mm3 (1.5-8.0) 01/12/19 07:45 Neutrophils % 69.2 % (42.8-82.8) D 01/12/19 07:45 Lymphocytes % 18.8 % (8-40) D 01/12/19 07:45 Monocytes % 8.5 % (3.8-10.2) 01/12/19 07:45 Eosinophils % 3.0 % (0-4.5) 01/12/19 07:45 Basophils % 0.5 % (0-2.0) 01/12/19 07:45 Nucleated RBC % 0 % (0-0) 01/12/19 07:45 Manual Slide Review Cancelled 01/11/19 07:00 Platelet Estimate No Result Required. 01/12/19 07:45 Platelet Comment No plt clumped seen 01/12/19 07:45 Sodium 140 mmol/L (136-145) 01/11/19 07:00 Potassium 3.7 mmol/L (3.5-5.1) 01/11/19 07:00 Chloride 101 mmol/L (98-107) 01/11/19 07:00 Carbon Dioxide 31 mmol/L (21-32) 01/11/19 07:00 Anion Gap 9 MMOL/L (8-16) 01/11/19 07:00 BUN 6 mg/dL (7-18) L 01/11/19 07:00 Creatinine 0.8 mg/dL (0.55-1.3) 01/11/19 07:00 Creat Clearance w eGFR > 60 (>60) 01/11/19 07:00 Random Glucose 76 mg/dL (74-106) 01/11/19 07:00 Calcium 8.6 mg/dL (8.5-10.1) 01/11/19 07:00 Total Bilirubin 0.6 mg/dL (0.2-1) 01/11/19 07:00 AST 29 U/L (15-37) 01/11/19 07:00 ALT 18 U/L (13-61) 01/11/19 07:00 Alkaline Phosphatase 116 U/L (45-117) 01/11/19 07:00 Total Protein 7.3 g/dl (6.4-8.2) 01/11/19 07:00 Albumin 3.6 g/dl (3.4-5.0) 01/11/19 07:00 Urine Color Dkyellow 01/11/19 00:00 Urine Appearance Clear 01/11/19 00:00 Urine pH 6.0 (5.0-8.0) 01/11/19 00:00 Ur Specific [place] 1.015 (1.010-1.035) 01/11/19 00:00 Urine Protein 2+ (NEGATIVE) H 01/11/19 00:00 Urine Glucose (UA) Negative (NEGATIVE) 01/11/19 00:00 Urine Ketones Negative (NEGATIVE) 01/11/19 00:00 Urine Blood Negative (NEGATIVE) 01/11/19 00:00 Urine Nitrite Negative (NEGATIVE) 01/11/19 00:00 Urine Bilirubin Negative (<2.0 mg/dL) 01/11/19 00:00 Urine Urobilinogen 4.0 e.u/dl mg/dL (0.2-1.0) 01/11/19 00:00 Ur Leukocyte Esterase Negative (NEGATIVE) 01/11/19 00:00 Urine WBC (Auto) <1 /hpf (3-5) 01/11/19 00:00 Urine RBC (Auto) 1 /hpf (0-3) 01/11/19 00:00 Ur Epithelial Cells Rare /HPF (FEW) 01/11/19 00:00 Hyaline Casts 4 /lpf 01/11/19 00:00 Urine Mucus Rare 01/11/19 00:00 RPR Titer Nonreactive (NONREACTIVE) 01/11/19 07:00 lab noted Assessment: 01/13/19 10:35 mild withdrawal sx 01/13/19 10:36 Plan: continue detox
[2019-01-13] MEDS ORDERED: TIMOLOL 0.5% OPHTHALMIC SOL 5 ML BOTTLE OU SCH (13:00)
[2019-01-13] MEDS ORDERED: COLLOIDAL OATMEAL 1 BAR EACH TP PRN (15:49)
[2019-01-13] MEDS: guaiFENesin/D-METHORPHAN HB 10 ML UNIT-DOSE CUPS PO PRN (17:43)
[2019-01-13] MEDS: THIAMINE HCL 100 MG TABLET (FP) PO SCH (22:04)
[2019-01-13] MEDS: LATANOPROST 0.005% OPHTH SOLN 2.5ML BOTTLE OU SCH (22:04)
[2019-01-13] MEDS: chlordiazePOXIDE HCL 10 MG CAPSULE PO SCH (22:05)
[2019-01-13] MEDS: traZODone HCL 100 MG TABLET (FP) PO SCH (22:05)
[2019-01-14] MEDS: CYCLOBENZAPRINE HCL 5 MG TABLET PO SCH (05:45)
[2019-01-14] MEDS: chlordiazePOXIDE HCL 10 MG CAPSULE PO SCH ×2 (05:45→12:30)
[2019-01-14 09:15] VITALS: BP 120/74; PULSE 76; TEMP 97.9
[2019-01-14] MEDS: NICOTINE 21 MG/24 HOURS TOPICAL PATCH TD SCH (10:47)
[2019-01-14] MEDS: PRENATAL VITAMINS W/ FOLIC ACID TABLET (FP) PO SCH (10:47)
[2019-01-14] MEDS: TAMSULOSIN HCL 0.4 MG CAP PO SCH (10:47)
[2019-01-14] MEDS: RANITIDINE HCL 150 MG TABLET (FP) PO SCH (10:47)
[2019-01-14] MEDS: FLUTICASONE PROP 0.05% 16 GM NASAL SPRAY NS SCH (10:47)
[2019-01-14] MEDS: SERTRALINE HCL 50 MG TABLET (FP) PO SCH (10:47)
[2019-01-14] MEDS: PANTOPRAZOLE 20 MG TABLET (FP) PO SCH (10:49)
[2019-01-14] MEDS: TIMOLOL 0.5% OPHTHALMIC SOL 5 ML BOTTLE OU SCH (10:50)
[2019-01-14] MEDS: ACETAMINOPHEN 325 MG TABLET (FP) PO PRN (10:52)
[2019-01-14] MEDS: guaiFENesin/D-METHORPHAN HB 10 ML UNIT-DOSE CUPS PO PRN (11:03)
--- NOTE | 2019-01-14 12:27 | DS ---
[facility] Detox Discharge Summary Admission Date: 01/10/19 Discharge Date: 01/14/19 - History Present History: Alcohol Dependence Additional Comments: 58 years old male admmitted on 01/10/19 for alcohol withdrawal stabilization completed alcohol detox regimen aftercare [facility] - Physical Exam Results Vital Signs: Vital Signs Temperature 97.9 F 01/14/19 09:15 Pulse Rate 76 01/14/19 09:15 Respiratory Rate 18 01/14/19 09:15 Blood Pressure 120/74 01/14/19 09:15 O2 Sat by Pulse Oximetry (%) Pertinent Admission Physical Exam Findings: alcohol withdrawal sx Laboratory Last Values WBC 4.6 K/mm3 (4.0-10.0) 01/12/19 07:45 Corrected WBC (auto) Cancelled 01/11/19 07:00 RBC 3.98 M/mm3 (4.00-5.60) L 01/12/19 07:45 Hgb 12.2 GM/dL (11.7-16.9) 01/12/19 07:45 Hct 36.2 % (35.4-49) 01/12/19 07:45 MCV 91.0 fl (80-96) 01/12/19 07:45 MCH 30.7 pg (25.7-33.7) 01/12/19 07:45 MCHC 33.7 g/dl (32.0-35.9) 01/12/19 07:45 RDW 16.5 % (11.9-15.9) H 01/12/19 07:45 Plt Count 115 K/MM3 (134-434) L D 01/12/19 07:45 MPV 10.0 fl (7.5-11.1) D 01/12/19 07:45 Absolute Neuts (auto) 3.2 K/mm3 (1.5-8.0) 01/12/19 07:45 Neutrophils % 69.2 % (42.8-82.8) D 01/12/19 07:45 Lymphocytes % 18.8 % (8-40) D 01/12/19 07:45 Monocytes % 8.5 % (3.8-10.2) 01/12/19 07:45 Eosinophils % 3.0 % (0-4.5) 01/12/19 07:45 Basophils % 0.5 % (0-2.0) 01/12/19 07:45 Nucleated RBC % 0 % (0-0) 01/12/19 07:45 Manual Slide Review Cancelled 01/11/19 07:00 Platelet Estimate No Result Required. 01/12/19 07:45 Platelet Comment No plt clumped seen 01/12/19 07:45 Sodium 140 mmol/L (136-145) 01/11/19 07:00 Potassium 3.7 mmol/L (3.5-5.1) 01/11/19 07:00 Chloride 101 mmol/L (98-107) 01/11/19 07:00 Carbon Dioxide 31 mmol/L (21-32) 01/11/19 07:00 Anion Gap 9 MMOL/L (8-16) 01/11/19 07:00 BUN 6 mg/dL (7-18) L 01/11/19 07:00 Creatinine 0.8 mg/dL (0.55-1.3) 01/11/19 07:00 Creat Clearance w eGFR > 60 (>60) 01/11/19 07:00 Random Glucose 76 mg/dL (74-106) 01/11/19 07:00 Calcium 8.6 mg/dL (8.5-10.1) 01/11/19 07:00 Total Bilirubin 0.6 mg/dL (0.2-1) 01/11/19 07:00 AST 29 U/L (15-37) 01/11/19 07:00 ALT 18 U/L (13-61) 01/11/19 07:00 Alkaline Phosphatase 116 U/L (45-117) 01/11/19 07:00 Total Protein 7.3 g/dl (6.4-8.2) 01/11/19 07:00 Albumin 3.6 g/dl (3.4-5.0) 01/11/19 07:00 Urine Color Dkyellow 01/11/19 00:00 Urine Appearance Clear 01/11/19 00:00 Urine pH 6.0 (5.0-8.0) 01/11/19 00:00 Ur Specific [place] 1.015 (1.010-1.035) 01/11/19 00:00 Urine Protein 2+ (NEGATIVE) H 01/11/19 00:00 Urine Glucose (UA) Negative (NEGATIVE) 01/11/19 00:00 Urine Ketones Negative (NEGATIVE) 01/11/19 00:00 Urine Blood Negative (NEGATIVE) 01/11/19 00:00 Urine Nitrite Negative (NEGATIVE) 01/11/19 00:00 Urine Bilirubin Negative (<2.0 mg/dL) 01/11/19 00:00 Urine Urobilinogen 4.0 e.u/dl mg/dL (0.2-1.0) 01/11/19 00:00 Ur Leukocyte Esterase Negative (NEGATIVE) 01/11/19 00:00 Urine WBC (Auto) <1 /hpf (3-5) 01/11/19 00:00 Urine RBC (Auto) 1 /hpf (0-3) 01/11/19 00:00 Ur Epithelial Cells Rare /HPF (FEW) 01/11/19 00:00 Hyaline Casts 4 /lpf 01/11/19 00:00 Urine Mucus Rare 01/11/19 00:00 RPR Titer Nonreactive (NONREACTIVE) 01/11/19 07:00 lab noted - Treatment Hospital Course: Detox Protocol Followed, Detoxed Safely, Responded well, Discharged Condition Good, Rehab Referral Accepted Patient has Accepted a Rehab Referral to: [facility] - Medication Discharge Medications: Ambulatory Orders Ranitidine [Zantac -] 150 mg PO BID #60 tablet 06/08/18 Clotrimazole [Lotrimin -] 1 applic TP BID 10/17/18 Gabapentin [Neurontin -] 400 mg PO TID 10/17/18 Pantoprazole Sodium [Protonix -] 20 mg PO DAILY 10/17/18 traZODone HCL [Desyrel -] 100 mg PO HS #30 tablet 10/31/18 Latanoprost 0.005% Eye Drops [Xalatan 0.005% Eye Drops -] 1 drop OU HS #1 bottle 01/13/19 Tamsulosin HCl [Flomax -] 0.4 mg PO DAILY #14 cap.er.24h 01/13/19 Timolol 0.5% [Timoptic 0.5%] 1 drop OU BID #1 drops 01/13/19 - Diagnosis (1) Alcohol dependence with uncomplicated withdrawal Current Visit: Yes Status: Acute (2) BPH (benign prostatic hypertrophy) Current Visit: Yes Status: Chronic Qualifiers: Lower urinary tract symptom presence: symptoms absent Qualified Code(s): N40.0 - Benign prostatic hyperplasia without lower urinary tract symptoms (3) Gastroesophageal reflux disease Current Visit: Yes Status: Chronic (4) Nicotine dependence Current Visit: Yes Status: Acute Qualifiers: Nicotine product type: cigarettes Substance use status: in withdrawal Qualified Code(s): F17.213 - Nicotine dependence, cigarettes, with withdrawal (5) Use of cane as ambulatory aid Current Visit: Yes Status: Chronic (6) Substance induced mood disorder Current Visit: Yes Status: Suspected (7) Asthma Current Visit: Yes Status: Chronic Qualifiers: Asthma severity: mild Asthma persistence: intermittent Asthma complication type: with status asthmaticus Qualified Code(s): J45.22 - Mild intermittent asthma with status asthmaticus - AMA Did Patient Leave Against Medical Advice: No
== END 2019-01-14 12:47 | disposition home or self-care (01) | DRG 775 ==
LOC: YASAS 11:55 → Y3N 16:13
PROVIDERS: ADMIT Surgery; ATTEND Surgery
PROC: HZ2ZZZZ Detoxification Services for Substance Abuse Treatment (ICD-10-PCS; principal; 2019-01-10)
DX: F10.230 Alcohol dependence with withdrawal, uncomplicated (principal); F17.213 Nicotine dependence, cigarettes, with withdrawal; F19.24 Other psychoactive substance dependence with psychoactive substance-induced mood disorder; F20.0 Paranoid schizophrenia; N40.0 Benign prostatic hyperplasia without lower urinary tract symptoms; K21.9 Gastro-esophageal reflux disease without esophagitis; J45.22 Mild intermittent asthma with status asthmaticus; D69.6 Thrombocytopenia, unspecified; H40.2231 Chronic angle-closure glaucoma, bilateral, mild stage; R26.2 Difficulty in walking, not elsewhere classified; Z99.89 Dependence on other enabling machines and devices; Z88.0 Allergy status to penicillin; Z91.013 Allergy to seafood
CPT/HCPCS: 36415; 80053; 81003; 81015; 85025; 86593

== ENCOUNTER 2019-02-19 19:24 | Inpatient (IN) | payer OTHER ==
[2019-02-19 22:11] VITALS: BMI 25.8
--- NOTE | 2019-02-19 22:27 | HP ---
CIWA Score Nausea/Vomitin (diarrhea x 3) Muscle Tremors: 4-Moderate,w/Arms Extend Anxiety: 3 Agitation: 1-Slight > Activity Paroxysmal Sweats: 3 Orientation: 0-Oriented Tacttile Disturbances: 0-None Auditory Disturbances: 3-Moderate Harsh/Frighten Visual Disturbances: 0-None Headache: 2-Mild CIWA-Ar Total Score: 19 - Admission Criteria OAS Guidelines: Admission for Medically Managed Detox: Requires at least one of the followin. CIWA greater than 12 2. Seizures within the past 24 hours 3. Delirium tremens within the past 24 hours 4. Hallucinations within the past 24 hours 5. Acute intervention needed for co occurring medical disorder 6. Acute intervention needed for co occurring psychiatric disorder 7. Severe withdrawal that cannot be handled at a lower level of care (continued vomiting, continued diarrhea, abnormal vital signs) requiring intravenous medication and/or fluids 8. Admission ROS [facility] Chief Complaint: Alcohol withdrawal symptoms Allergies/Adverse Reactions: Allergies Allergy/AdvReac Type Severity Reaction Status Date / Time metoclopramide HCl Allergy Severe Swelling Verified 01/10/19 16:54 [From Reglan] Penicillins Allergy Severe Hives Verified 01/10/19 16:54 shellfish derived Allergy Severe Swelling Verified 01/10/19 16:54 orange juice AdvReac Mild Rash Verified 01/10/19 16:54 History of Present Illness: 58 years old male with a long history of alcohol dependence is seeking admission to detox. Patient has been in multiple detox and reports 2 years of sobriety. He has medical history of Glaucoma, seizures, low back pain, BPH, arthritis, gastric ulcer, Cataract and depression. He reports intermittent blackouts from alcohol use and abuse. He denies suicide attempt and suicidal ideation at this time. Exam Limitations: No Limitations - Ebola screening Have you traveled outside of the country in the last 21 days: No (N) Have you had contact with anyone from an Ebola affected area: No Have you been sick,other than usual withdrawal symptoms: No Do you have a fever: No - Review of Systems Constitutional: Chills, Malaise, Night Sweats, Changes in sleep EENT: reports: Sinus Pressure Respiratory: reports: No Symptoms reported Cardiac: reports: No Symptoms Reported GI: reports: Diarrhea, Poor Appetite, Poor Fluid Intake, Vomiting, Abdominal cramping : reports: No Symptoms Reported Musculoskeletal: reports: Back Pain Integumentary: reports: Dryness, Flushing Neuro: reports: Headache, Tremors Endocrine: reports: No Symptoms Reported Hematology: reports: No Symptoms Reported Psychiatric: reports: Anxious, Depressed Other Systems: Reviewed and Negative Patient History - Patient Medical History Hx Anemia: No Hx Asthma: No Hx Chronic Obstructive Pulmonary Disease (COPD): No Hx Cancer: No Hx Cardiac Disorders: No Hx Congestive Heart Failure: No Hx Hypertension: No Hx Hypercholesterolemia: No Hx Pacemaker: No HX Cerebrovascular Accident: No Hx Seizures: Yes (Not on medication) Hx Dementia: No Hx Diabetes: No Hx Gastrointestinal Disorders: Yes (GASTRIC ULCER) Hx Liver Disease: No Hx Genitourinary Disorders: No Hx Sexually Transmitted Disorders: No Hx Renal Disease (ESRD): No Hx Thyroid Disease: No Hx Human Immunodeficiency Virus (HIV): No (05/14 negative ) Hx Hepatitis C: No Hx Depression: Yes Hx Suicide Attempt: No (Denies suicidal ideation at this time) Hx Bipolar Disorder: No Hx Schizophrenia: No Other Medical History: Cataract and Glucoma -Timolol, - Patient Surgical History Past Surgical History: Yes Hx Neurologic Surgery: Yes (C-SPINE FUSION IN 2016) Hx Cataract Extraction: No Hx Cardiac Surgery: No Hx Lung Surgery: No Hx Breast Surgery: No Hx Breast Biopsy: No Hx Abdominal Surgery: No Hx Appendectomy: No Hx Cholecystectomy: No Hx Genitourinary Surgery: No Hx Section: No Hx Orthopedic Surgery: Yes (Sx bilateral wrist and R ankle sx; ON THE NECK) Other Surgical History: HE FELL DOWN 4 DAYS AGO AND INJURED THE SCALP - STAPLED Anesthesia Reaction: No - PPD History Previous Implant?: No Date: 06/05/18 Results: 0 MM PPD to be Administered?: No - Reproductive History Patient is a Female of Child Bearing Age (11 -55 yrs old): No (MALE) - Smoking Cessation Smoking history: Current every day smoker Have you smoked in the past 12 months: No Aproximately how many cigarettes per day: 40 Cigars Per Day: 0 Hx Chewing Tobacco Use: No Initiated information on smoking cessation: Yes 'Breaking Loose' booklet given: 02/19/19 - Substance & Tx. History Hx Alcohol Use: Yes Hx Substance Use: No Substance Use Type: Alcohol Hx Substance Use Treatment: Yes ([facility]) - Substances Abused Alcohol Amount used: VODKA - 6 pints Age of first use: 14 Date of Last Use: 02/18/19 Family Disease History - Family Disease History Family Disease History: Other: Father (alcohol,), Mother (alcohol), Brother (alcohol), Sister (alcohol) Admission Physical Exam [facility] - Vital Signs Vital Signs: Vital Signs - 24 hr 02/19/19 22:07 Temperature 98.0 F Pulse Rate 99 H Respiratory 20 Rate Blood Pressure 136/86 - Physical General Appearance: Yes: Moderate Distress, Tremorous, Irritable, Sweating, Anxious HEENTM: Yes: EOMI, Normal Voice, MARISOL Respiratory: Yes: Lungs Clear, Normal Breath Sounds, No Respiratory Distress Neck: Yes: Supple Breast: Yes: Breast Exam Deferred Cardiology: Yes: Tachycardia Abdominal: Yes: Normal Bowel Sounds, Soft Genitourinary: Yes: Within Normal Limits Back: Yes: Normal Inspection Musculoskeletal: Yes: Back pain, Muscle Pain Extremities: Yes: Tremors 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: Yes: Within Normal Limits, Fully Oriented, Alert, Normal Mood/ Affect Integumentary: Yes: Warm Lymphatic: Yes: Within Normal Limits - Diagnostic (1) Alcohol dependence with uncomplicated withdrawal Current Visit: Yes Status: Chronic (2) Arthritis Current Visit: Yes Status: Chronic (3) Asthma Current Visit: Yes Status: Chronic Qualifiers: Asthma severity: mild Asthma persistence: intermittent Asthma complication type: with status asthmaticus Qualified Code(s): J45.22 - Mild intermittent asthma with status asthmaticus (4) BPH (benign prostatic hypertrophy) Current Visit: Yes Status: Chronic Qualifiers: Lower urinary tract symptom presence: symptoms absent Qualified Code(s): N40.0 - Benign prostatic hyperplasia without lower urinary tract symptoms Comment: Has not seen a provider since initiation of flomax (5) Chronic low back pain Current Visit: No Status: Chronic Qualifiers: Back pain laterality: unspecified Sciatica presence: unspecified whether sciatica present Qualified Code(s): M54.5 - Low back pain; G89.29 - Other chronic pain (6) Chronic neck pain Current Visit: No Status: Chronic (7) Depression with anxiety Current Visit: Yes Status: Chronic (8) Non-compliance with treatment Current Visit: Yes Status: Chronic (9) Substance induced mood disorder Current Visit: No Status: Suspected (10) Glaucoma Current Visit: Yes Status: Chronic (11) Cataract Current Visit: Yes Status: Chronic Qualifiers: Cataract type: age-related (12) Gastric ulcer Current Visit: Yes Status: Chronic Qualifiers: Gastric ulcer chronicity: unspecified ulcer chronicity Cleared for Admission [facility] - Detox or Rehab [facility] Level of Care: Medically Managed Detox Regimen/Protocol: Librium [facility] Breath Alcohol Content Breath Alcohol Content: 0.066 Urine Drug Screen - Results Drug Screen Negative: No Urine Drug Screen Results: BZO-Benzodiazepines Inpatient Rehab Admission - Rehab Decision to Admit Inpatient rehab admission?: No
[2019-02-19] MEDS ORDERED: MAG HYDROX/AL HYDROX/SIMETH 30 ML UNIT-DOSE CUP PO PRN (22:53)
[2019-02-19] MEDS ORDERED: BISMUTH SUBSALICYLATE 524 MG/30 ML UD PO PRN (22:53)
[2019-02-19] MEDS ORDERED: chlordiazePOXIDE HCL 25 MG CAPSULE PO PRN (22:53)
[2019-02-19] MEDS ORDERED: MENTHOL/PHENOL 1 EACH UD MM PRN (22:53)
[2019-02-19] MEDS ORDERED: MELATONIN 5 MG TABLETS PO PRN (22:53)
[2019-02-19] MEDS ORDERED: ACETAMINOPHEN 325 MG TABLET (FP) PO PRN ×2 (22:53)
[2019-02-19] MEDS ORDERED: MAGNESIUM HYDROX 2400MG/30ML ORAL SUSPENSION 30 ML CUP PO PRN (22:53)
[2019-02-19] MEDS ORDERED: MAGNESIUM CITRATE 300 ML BOTTLE PO PRN (22:53)
[2019-02-19] MEDS ORDERED: IBUPROFEN 400 MG TABLET (FP) PO PRN (22:53)
[2019-02-19] MEDS ORDERED: NICOTINE POLACRILEX 2 MG GUM BUC PRN (22:53)
[2019-02-19] MEDS ORDERED: chlordiazePOXIDE HCL 25 MG CAPSULE PO SCH (23:00)
[2019-02-20] MEDS ORDERED: chlordiazePOXIDE HCL 25 MG CAPSULE PO PRN (00:32)
[2019-02-20] MEDS ORDERED: COLLOIDAL OATMEAL 1 BAR EACH TP PRN (01:52)
[2019-02-20] MEDS: hydrOXYzine PAMOATE 25 MG CAPSULE (FP) PO PRN ×4 (02:17→18:04)
[2019-02-20] MEDS: chlordiazePOXIDE HCL 25 MG CAPSULE PO SCH ×4 (06:03→22:38)
[2019-02-20] MEDS: TAMSULOSIN HCL 0.4 MG CAP PO SCH (09:30)
[2019-02-20] MEDS ORDERED: CLOTRIMAZOLE 1%TOPICAL SOLUTION 30 ML BOTTLE TP SCH (10:00)
[2019-02-20] MEDS ORDERED: PANTOPRAZOLE 20 MG TABLET (FP) PO SCH (10:00)
--- NOTE | 2019-02-20 10:22 | CONSULT ---
[facility] Psychiatric Consult - Data Date of interview: 02/20/19 Admission source: [facility] Identifying data: Readmission to [facility] for this 58 y/o AA male, self- referred for detoxification (alcohol). Examined at [address] [place] [address]. Patient is single, no children (claimed two dependents at previous encounters), homeless, disabled and supported on SSI benefits. Substance Abuse History: Confirmed by patient in this interview. Details in current [facility] report : Smoking history: Current every day smoker. Have you smoked in the past 12 months: No. Aproximately how many cigarettes per day: 40. Cigars Per Day: 0. Hx Chewing Tobacco Use: No. Initiated information on smoking cessation: Yes. 'Breaking Loose' booklet given: 02/19/19. - Substance & Tx. History. Hx Alcohol Use: Yes. Hx Substance Use: No. Substance Use Type : Alcohol. Hx Substance Use Treatment: Yes ([facility]). - Substances Abused. Alcohol. Amount used: VODKA - 6 pints. Age of first use: 14. Date of Last Use : 02/18/19 Medical History: Remarkable for GERD, arthritis, glaucoma, cataracts (bilateral) , withdrawal seizures, peptic ulcer disease, cyst of left wrist, cervical fusion (consequence of injuries sustained in a fall while riding an escalator 3- 4 years ago), BPH (benign prostatic hyperplasia), past history of orthosurgery for fracture of right ankle (hardware in situ) and surgery for laceration of right wrist (glass). Patient uses a cane for ambulation. Psychiatric History: Patient presents with a history of multiple psychiatric hospitalizations ([facility], [facility], [facility], [facility] [place]). Diagnosed with Schizoaffective Disorder. Mr Mcrae declares that he does not see psychiatrists or take psychotropic medications with the exception of trazodone for insomnia. Patient denies history of suicide attempts. Physical/Sexual Abuse/Trauma History: Patient denies. Additional Comment: Urine Drug Screen Results: BZO-Benzodiazepines. Noted. Mental Status Exam - Mental Status Exam Alert and Oriented to: Time, Place, Person Cognitive Function: Good Patient Appearance: Well Groomed Mood: Withdrawn, Anxious Affect: Mood Congruent, Constricted Patient Behavior: Fatigued, Cooperative Speech Pattern: Clear Voice Loudness: Normal Thought Process: Goal Oriented Thought Disorder: Not Present Hallucinations: Denies Suicidal Ideation: Denies Homicidal Ideation: Denies Insight/Judgement: Poor Sleep: Poorly, Difficulty falling asleep Appetite: Good Muscle strength/Tone: Normal Gait/Station: Other (wals with a cane) Psychiatric Findings - Problem List ([place] 1, 2,3) (1) Alcohol dependence with uncomplicated withdrawal Current Visit: Yes Status: Acute (2) Nicotine dependence Current Visit: Yes Status: Chronic Qualifiers: Nicotine product type: cigarettes Substance use status: in withdrawal Qualified Code(s): F17.213 - Nicotine dependence, cigarettes, with withdrawal (3) Substance induced mood disorder Current Visit: Yes Status: Chronic (4) History of schizoaffective disorder Current Visit: Yes Status: Chronic (5) Insomnia Current Visit: Yes Status: Chronic (6) Non-compliance with treatment Current Visit: Yes Status: Chronic - Initial Treatment Plan Initial Treatment Plan: Psychoeducation. Falls precautions. Sleep hygiene. Detoxification. Support. Trazodone is resumed at the dose of 50 mg po hs. Side effects/benefits discussed. Patient is made aware of the risk of priapism. Agrees with this plan of care. Observation.
[2019-02-20] MEDS: PRENATAL VITAMINS W/ FOLIC ACID TABLET (FP) PO SCH (10:30)
[2019-02-20] MEDS: MINERAL OIL/PETROLAT/WATER TOPICAL CREAM 113 GM JAR TP SCH (10:30)
[2019-02-20] MEDS: TIMOLOL 0.5% OPHTHALMIC SOL 5 ML BOTTLE OU SCH ×2 (10:31→22:38)
[2019-02-20] MEDS: NICOTINE 14 MG/24 HOURS TOPICAL PATCH TD SCH (10:33)
[2019-02-20] MEDS: METHOCARBAMOL 500 MG TABLET PO PRN ×2 (10:34→18:04)
--- NOTE | 2019-02-20 10:48 | PN ---
[facility] CIWA - CIWA Score Nausea/Vomitin-Mild Nausea/No Vomiting Muscle Tremors: 3 Anxiety: 2 Agitation: 3 Paroxysmal Sweats: 1-Minimal Palms Moist Orientation: 3-Disoriented Date>2 days Tacttile Disturbances: 0-None Auditory Disturbances: 0-None Visual Disturbances: 0-None Headache: 1-Very Mild CIWA-Ar Total Score: 14 BHS Progress Note (SOAP) Subjective: worry about bed bugs no bed bugs noted no skin rashes noted skin dry and flaky eucerin cream Objective: 02/20/19 10:50 Vital Signs Temperature 98.4 F 02/20/19 06:41 Pulse Rate 90 02/20/19 06:41 Respiratory Rate 18 02/20/19 06:41 Blood Pressure 119/73 02/20/19 06:41 O2 Sat by Pulse Oximetry (%) 02/20/19 10:51 lab pending Assessment: 02/20/19 10:51 withdrawal sx Plan: continue detox
[2019-02-20] MEDS: CLOTRIMAZOLE 1% 10 ML TOPICAL SOLUTION TP SCH ×2 (12:12→22:44)
[2019-02-20] MEDS: RANITIDINE HCL 150 MG TABLET (FP) PO SCH ×2 (12:12→22:38)
[2019-02-20] MEDS: LIDOCAINE 5% TOPICAL PATCH TP SCH (12:12)
[2019-02-20 12:37] LABS: HEMATOCRIT 35.9 % (35.4-49); MCHC 33.4 g/dl (32.0-35.9); MEAN CELL VOLUME 89.8 fl (80-96); MEAN PLT VOLUME 8.7 fl (7.5-11.1); PLATELET COUNT 132 K/MM3 (134-434); RDW 15.7 % (11.9-15.9); WHITE BLOOD COUNT 4.5 K/mm3 (4.0-10.0)
[2019-02-20 13:11] LABS: ALBUMIN 3.4 g/dl (3.4-5.0); ALK PHOS 115 U/L (45-117); ANION GAP 10 MMOL/L (8-16); BLOOD UREA NITROGEN 11 mg/dL (7-18); CALCIUM 8.5 mg/dL (8.5-10.1); CHLORIDE 96 mmol/L (98-107); CO2 29 mmol/L (21-32); CREATININE 0.9 mg/dL (0.55-1.3); GLUCOSE,RANDOM 80 mg/dL (74-106); POTASSIUM 3.1 mmol/L (3.5-5.1); SGOT/AST 39 U/L (15-37); SGPT/ALT 21 U/L (13-61); SODIUM 135 mmol/L (136-145); TOT PROT 6.7 g/dl (6.4-8.2)
--- NOTE | 2019-02-20 19:50 | PN ---
[facility] Progress Note Note: Pt requesting nasal spray- start ocean spray Noted to have low potassium- Kcl 20meq BID- start tonight
[2019-02-20] MEDS: traZODone HCL 50 MG TABLET (FP) PO SCH (22:38)
[2019-02-20] MEDS: THIAMINE HCL 100 MG TABLET (FP) PO SCH (22:38)
[2019-02-20] MEDS: POTASSIUM CHLORIDE ORAL LIQUID 20 MEQ/15 ML PO SCH (22:38)
[2019-02-20] MEDS: LATANOPROST 0.005% OPHTH SOLN 2.5ML BOTTLE OU SCH (22:42)
[2019-02-20] MEDS: LIDOCAINE PATCH REMOVAL MC SCH (22:44)
[2019-02-20] MEDS ORDERED: chlordiazePOXIDE HCL 25 MG CAPSULE PO SCH (23:00)
[2019-02-21] MEDS: chlordiazePOXIDE HCL 25 MG CAPSULE PO SCH ×4 (06:22→22:36)
[2019-02-21] MEDS: TAMSULOSIN HCL 0.4 MG CAP PO SCH (08:33)
[2019-02-21] MEDS: TIMOLOL 0.5% OPHTHALMIC SOL 5 ML BOTTLE OU SCH ×2 (10:33→22:42)
[2019-02-21] MEDS: PRENATAL VITAMINS W/ FOLIC ACID TABLET (FP) PO SCH (10:33)
[2019-02-21] MEDS: RANITIDINE HCL 150 MG TABLET (FP) PO SCH ×2 (10:33→22:36)
[2019-02-21] MEDS: hydrOXYzine PAMOATE 25 MG CAPSULE (FP) PO PRN ×2 (10:33→18:14)
[2019-02-21] MEDS: MINERAL OIL/PETROLAT/WATER TOPICAL CREAM 113 GM JAR TP SCH (10:34)
[2019-02-21] MEDS: CLOTRIMAZOLE 1% 10 ML TOPICAL SOLUTION TP SCH ×2 (10:39→22:41)
[2019-02-21] MEDS: LIDOCAINE 5% TOPICAL PATCH TP SCH (10:45)
[2019-02-21] MEDS: NICOTINE 14 MG/24 HOURS TOPICAL PATCH TD SCH (10:46)
[2019-02-21] MEDS ORDERED: ALBUTEROL SO4 8 GM HFA INHALER IH PRN (11:04)
[2019-02-21] MEDS: POTASSIUM CHLORIDE ORAL LIQUID 20 MEQ/15 ML PO SCH ×2 (11:27→22:41)
--- NOTE | 2019-02-21 11:52 | EKG ---
Test Reason : Blood Pressure : / mmHG Vent. Rate : 090 BPM Atrial Rate : 090 BPM P-R Int : 154 ms QRS Dur : 092 ms QT Int : 370 ms P-R-T Axes : 053 042 092 degrees QTc Int : 452 ms NORMAL SINUS RHYTHM T WAVE ABNORMALITY, CONSIDER ANTERIOR ISCHEMIA ABNORMAL ECG WHEN COMPARED WITH ECG OF 04-SEP-2018 21:48, INVERTED T WAVES HAVE REPLACED NONSPECIFIC T WAVE ABNORMALITY IN ANTERIOR LEADS Confirmed by MYRON GRISSOM, MIHAI ([id number]) on 02/21/2019 11:52:14 AM Referred By: GABRIELA Confirmed By:MIHAI SANCHES MD
--- NOTE | 2019-02-21 15:36 | PN ---
S CIWA - CIWA Score Nausea/Vomitin-Mild Nausea/No Vomiting Muscle Tremors: 3 Anxiety: 2 Agitation: 2 Paroxysmal Sweats: 1-Minimal Palms Moist Orientation: 2-Disoriented Date<2 days Tacttile Disturbances: 0-None Auditory Disturbances: 0-None Visual Disturbances: 0-None Headache: 1-Very Mild CIWA-Ar Total Score: 12 S Progress Note (SOAP) Subjective: stuffy nose ocean sprad ordered ambulate with cane Objective: 02/21/19 15:38 Vital Signs Temperature 98.1 F 02/21/19 14:48 Pulse Rate 104 H 02/21/19 14:48 Respiratory Rate 18 02/21/19 14:48 Blood Pressure 113/72 02/21/19 14:48 O2 Sat by Pulse Oximetry (%) Laboratory Last Values WBC 4.5 K/mm3 (4.0-10.0) 02/20/19 07:30 RBC 4.00 M/mm3 (4.00-5.60) 02/20/19 07:30 Hgb 12.0 GM/dL (11.7-16.9) 02/20/19 07:30 Hct 35.9 % (35.4-49) 02/20/19 07:30 MCV 89.8 fl (80-96) 02/20/19 07:30 MCH 30.0 pg (25.7-33.7) 02/20/19 07:30 MCHC 33.4 g/dl (32.0-35.9) 02/20/19 07:30 RDW 15.7 % (11.9-15.9) 02/20/19 07:30 Plt Count 132 K/MM3 (134-434) L 02/20/19 07:30 MPV 8.7 fl (7.5-11.1) D 02/20/19 07:30 Sodium 135 mmol/L (136-145) L 02/20/19 07:30 Potassium 3.1 mmol/L (3.5-5.1) L 02/20/19 07:30 Chloride 96 mmol/L (98-107) L 02/20/19 07:30 Carbon Dioxide 29 mmol/L (21-32) 02/20/19 07:30 Anion Gap 10 MMOL/L (8-16) 02/20/19 07:30 BUN 11 mg/dL (7-18) 02/20/19 07:30 Creatinine 0.9 mg/dL (0.55-1.3) 02/20/19 07:30 Creat Clearance w eGFR 86.08 (>60) 02/20/19 07:30 Random Glucose 80 mg/dL (74-106) 02/20/19 07:30 Calcium 8.5 mg/dL (8.5-10.1) 02/20/19 07:30 Total Bilirubin 1.0 mg/dL (0.2-1) 02/20/19 07:30 AST 39 U/L (15-37) H 02/20/19 07:30 ALT 21 U/L (13-61) 02/20/19 07:30 Alkaline Phosphatase 115 U/L (45-117) 02/20/19 07:30 Total Protein 6.7 g/dl (6.4-8.2) 02/20/19 07:30 Albumin 3.4 g/dl (3.4-5.0) 02/20/19 07:30 RPR Titer Nonreactive (NONREACTIVE) 02/20/19 07:30 lab noted low K+ Assessment: 02/21/19 15:39 withdrawal sx Plan: continue detox
[2019-02-21] MEDS: SODIUM CHLORIDE NASAL SPRAY 44 ML BOTTLE NS SCH ×2 (15:47→22:38)
[2019-02-21] MEDS: LATANOPROST 0.005% OPHTH SOLN 2.5ML BOTTLE OU SCH (22:36)
[2019-02-21] MEDS: traZODone HCL 50 MG TABLET (FP) PO SCH (22:36)
[2019-02-21] MEDS: THIAMINE HCL 100 MG TABLET (FP) PO SCH (22:36)
[2019-02-21] MEDS: METHOCARBAMOL 500 MG TABLET PO PRN (22:37)
[2019-02-21] MEDS: LIDOCAINE PATCH REMOVAL MC SCH (22:41)
[2019-02-21] MEDS ORDERED: chlordiazePOXIDE HCL 10 MG CAPSULE PO SCH (23:00)
[2019-02-21] MEDS ORDERED: chlordiazePOXIDE HCL 10 MG CAPSULE PO PRN (23:00)
[2019-02-22] MEDS: chlordiazePOXIDE HCL 10 MG CAPSULE PO SCH ×3 (04:16→17:54)
[2019-02-22] MEDS ORDERED: chlordiazePOXIDE HCL 10 MG CAPSULE PO PRN (05:00)
[2019-02-22] MEDS: SODIUM CHLORIDE NASAL SPRAY 44 ML BOTTLE NS SCH (07:38)
[2019-02-22] MEDS: TAMSULOSIN HCL 0.4 MG CAP PO SCH (08:38)
[2019-02-22] MEDS ORDERED: POTASSIUM CHLORIDE TABS 20 MEQ TABLET.ER (FP) PO SCH (10:00)
[2019-02-22] MEDS ORDERED: FLUTICASONE PROP 0.05% 16 GM NASAL SPRAY NS SCH (10:00)
[2019-02-22] MEDS: MINERAL OIL/PETROLAT/WATER TOPICAL CREAM 113 GM JAR TP SCH (10:37)
[2019-02-22] MEDS: TIMOLOL 0.5% OPHTHALMIC SOL 5 ML BOTTLE OU SCH (10:37)
[2019-02-22] MEDS: RANITIDINE HCL 150 MG TABLET (FP) PO SCH (10:38)
[2019-02-22] MEDS: CLOTRIMAZOLE 1% 10 ML TOPICAL SOLUTION TP SCH (10:38)
[2019-02-22] MEDS: PRENATAL VITAMINS W/ FOLIC ACID TABLET (FP) PO SCH (10:38)
[2019-02-22] MEDS: LIDOCAINE 5% TOPICAL PATCH TP SCH (10:39)
[2019-02-22] MEDS: NICOTINE 14 MG/24 HOURS TOPICAL PATCH TD SCH (10:41)
[2019-02-22] MEDS: guaiFENesin 200 MG/10 ML 10 ML UNIT-DOSE CUPS PO PRN ×2 (10:48→18:03)
[2019-02-22] MEDS: METHOCARBAMOL 500 MG TABLET PO PRN ×2 (10:48→17:54)
[2019-02-22] MEDS: hydrOXYzine PAMOATE 25 MG CAPSULE (FP) PO PRN (13:33)
[2019-02-22] MEDS ORDERED: ONDANSETRON *ODT* 4 MG TABLET SL PRN (14:07)
--- NOTE | 2019-02-22 15:01 | PN ---
[facility] Progress Note (SOAP) Subjective: Anxious, Nasal Congestion. Objective: PATIENT A & O X 3, OBSERVED AMBULATING ON UNIT WITH ASSISTANCE OF A CANE. IN NO ACUTE DISTRESS. 02/22/19 15:14 Vital Signs Temperature 97.6 F 02/22/19 13:00 Pulse Rate 84 02/22/19 13:00 Respiratory Rate 18 02/22/19 13:00 Blood Pressure 96/57 L 02/22/19 13:00 O2 Sat by Pulse Oximetry (%) Laboratory Tests 02/20/19 02/20/19 02/20/19 07:30 07:30 07:30 WBC 4.5 RBC 4.00 Hgb 12.0 Hct 35.9 MCV 89.8 MCH 30.0 MCHC 33.4 RDW 15.7 Plt Count 132 L MPV 8.7 D Sodium 135 L Potassium 3.1 L Chloride 96 L Carbon Dioxide 29 Anion Gap 10 BUN 11 Creatinine 0.9 Creat Clearance w eGFR 86.08 Random Glucose 80 Calcium 8.5 Total Bilirubin 1.0 AST 39 H ALT 21 Alkaline Phosphatase 115 Total Protein 6.7 Albumin 3.4 RPR Titer Nonreactive 02/22/19 07:00 WBC RBC Hgb Hct MCV MCH MCHC RDW Plt Count MPV Sodium Potassium 3.7 Chloride Carbon Dioxide Anion Gap BUN Creatinine Creat Clearance w eGFR Random Glucose Calcium Total Bilirubin AST ALT Alkaline Phosphatase Total Protein Albumin RPR Titer LABS NOTED. 02/22/19 15:15 Assessment: 02/22/19 15:15 WITHDRAWAL SYMPTOMS. Plan: CONTINUE DETOX.
[2019-02-22 17:41] VITALS: BP 113/73; PULSE 99; TEMP 97.8
--- NOTE | 2019-02-22 20:54 | DS ---
[facility] Detox Discharge Summary Admission Date: 02/19/19 Discharge Date: 02/22/19 - History Present History: Alcohol Dependence Additional Comments: Admitted for alcohol withdrawal symptoms. Pertinent Past History: Long history of alcohol use disorder w/ multiple detox's. PMHx:Glaucoma, Cataracts, Seizures, Low back pain, BPH, arthritis, and depression. Hx: blackouts from alcohol use. Denied suicide attempt or suicidal ideation. - Physical Exam Results Vital Signs: Vital Signs Temperature 97.8 F 02/22/19 17:39 Pulse Rate 99 H 02/22/19 17:39 Respiratory Rate 18 02/22/19 17:39 Blood Pressure 113/73 02/22/19 17:39 O2 Sat by Pulse Oximetry (%) Pertinent Admission Physical Exam Findings: Admitted w/ alcohol withdrawal symptoms and initiation of detox protocol. Laboratory Last Values WBC 4.5 K/mm3 (4.0-10.0) 02/20/19 07:30 RBC 4.00 M/mm3 (4.00-5.60) 02/20/19 07:30 Hgb 12.0 GM/dL (11.7-16.9) 02/20/19 07:30 Hct 35.9 % (35.4-49) 02/20/19 07:30 MCV 89.8 fl (80-96) 02/20/19 07:30 MCH 30.0 pg (25.7-33.7) 02/20/19 07:30 MCHC 33.4 g/dl (32.0-35.9) 02/20/19 07:30 RDW 15.7 % (11.9-15.9) 02/20/19 07:30 Plt Count 132 K/MM3 (134-434) L 02/20/19 07:30 MPV 8.7 fl (7.5-11.1) D 02/20/19 07:30 Sodium 135 mmol/L (136-145) L 02/20/19 07:30 Potassium 3.7 mmol/L (3.5-5.1) 02/22/19 07:00 Chloride 96 mmol/L (98-107) L 02/20/19 07:30 Carbon Dioxide 29 mmol/L (21-32) 02/20/19 07:30 Anion Gap 10 MMOL/L (8-16) 02/20/19 07:30 BUN 11 mg/dL (7-18) 02/20/19 07:30 Creatinine 0.9 mg/dL (0.55-1.3) 02/20/19 07:30 Creat Clearance w eGFR 86.08 (>60) 02/20/19 07:30 Random Glucose 80 mg/dL (74-106) 02/20/19 07:30 Calcium 8.5 mg/dL (8.5-10.1) 02/20/19 07:30 Total Bilirubin 1.0 mg/dL (0.2-1) 02/20/19 07:30 AST 39 U/L (15-37) H 02/20/19 07:30 ALT 21 U/L (13-61) 02/20/19 07:30 Alkaline Phosphatase 115 U/L (45-117) 02/20/19 07:30 Total Protein 6.7 g/dl (6.4-8.2) 02/20/19 07:30 Albumin 3.4 g/dl (3.4-5.0) 02/20/19 07:30 RPR Titer Nonreactive (NONREACTIVE) 02/20/19 07:30 Labs reviewed. - Treatment Hospital Course: Detox Protocol Followed (Patient did not complete detox protocol.), Discharged Condition Good (Alert and oriented w/ steady gait.) - Medication Discharge Medications: Ambulatory Orders Ranitidine [Zantac -] 150 mg PO BID #60 tablet 06/08/18 Gabapentin [Neurontin -] 400 mg PO TID 10/17/18 traZODone HCL [Desyrel -] 100 mg PO HS #30 tablet 10/31/18 Latanoprost 0.005% Eye Drops [Xalatan 0.005% Eye Drops -] 1 drop OU HS #1 bottle 01/13/19 Tamsulosin HCl [Flomax -] 0.4 mg PO DAILY #14 cap.er.24h 01/13/19 Timolol 0.5% [Timoptic 0.5%] 1 drop OU BID #1 drops 01/13/19 Albuterol Sulfate Inhaler - [Ventolin Hfa Inhaler -] 2 inh PO Q4H PRN 02/21/19 - Diagnosis (1) Alcohol dependence with uncomplicated withdrawal Status: Acute (2) Arthritis Status: Chronic (3) Asthma Status: Chronic Qualifiers: Asthma severity: mild Asthma persistence: intermittent Asthma complication type: with status asthmaticus Qualified Code(s): J45.22 - Mild intermittent asthma with status asthmaticus (4) BPH (benign prostatic hypertrophy) Status: Chronic Qualifiers: Lower urinary tract symptom presence: symptoms absent Qualified Code(s): N40.0 - Benign prostatic hyperplasia without lower urinary tract symptoms (5) Cataract Status: Chronic Qualifiers: Cataract type: age-related (6) Chronic low back pain Status: Chronic Qualifiers: Back pain laterality: unspecified Sciatica presence: unspecified whether sciatica present Qualified Code(s): M54.5 - Low back pain; G89.29 - Other chronic pain (7) Gastric ulcer Status: Chronic Qualifiers: Gastric ulcer chronicity: unspecified ulcer chronicity (8) Glaucoma Status: Chronic Qualifiers: Glaucoma type: unspecified Laterality: unspecified laterality Qualified Code(s): H40.9 - Unspecified glaucoma - AMA Did Patient Leave Against Medical Advice: Yes (Declined prescriptions. States "I don't want nothing from you")
[2019-02-22] MEDS ORDERED: chlordiazePOXIDE HCL 10 MG CAPSULE PO SCH (23:00)
[2019-02-23] MEDS ORDERED: chlordiazePOXIDE HCL 10 MG CAPSULE PO SCH (05:00)
== END 2019-02-22 20:00 | disposition left against medical advice (07) | DRG 770 ==
LOC: YASAS 19:24 → Y3N 23:51
PROVIDERS: ADMIT Surgery; ATTEND Surgery
PROC: HZ2ZZZZ Detoxification Services for Substance Abuse Treatment (ICD-10-PCS; principal; 2019-02-19)
DX: F10.230 Alcohol dependence with withdrawal, uncomplicated (principal); F17.210 Nicotine dependence, cigarettes, uncomplicated; F19.24 Other psychoactive substance dependence with psychoactive substance-induced mood disorder; F32.9 Major depressive disorder, single episode, unspecified; D69.6 Thrombocytopenia, unspecified; F41.8 Other specified anxiety disorders; J45.22 Mild intermittent asthma with status asthmaticus; M54.5 Low back pain; M54.2 Cervicalgia; G89.29 Other chronic pain; M12.9 Arthropathy, unspecified; N40.0 Benign prostatic hyperplasia without lower urinary tract symptoms; H40.9 Unspecified glaucoma; H26.9 Unspecified cataract; R26.89 Other abnormalities of gait and mobility; Z99.89 Dependence on other enabling machines and devices; Z91.19 Patient's noncompliance with other medical treatment and regimen
CPT/HCPCS: 36415; 80053; 84132; 85027; 86593; 93005; 93010

== ENCOUNTER 2019-05-04 14:52 | Inpatient (IN) | payer OTHER ==
[2019-05-04 17:28] VITALS: BMI 24.9
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
[2019-05-04] MEDS ORDERED: ACETAMINOPHEN 325 MG TABLET (FP) PO PRN ×2 (19:12)
[2019-05-04] MEDS ORDERED: IBUPROFEN 400 MG TABLET (FP) PO PRN (19:12)
[2019-05-04] MEDS ORDERED: NICOTINE POLACRILEX 2 MG GUM BUC PRN (19:12)
[2019-05-04] MEDS ORDERED: MAGNESIUM HYDROX 2400MG/30ML ORAL SUSPENSION 30 ML CUP PO PRN (19:12)
[2019-05-04] MEDS ORDERED: MAG HYDROX/AL HYDROX/SIMETH 30 ML UNIT-DOSE CUP PO PRN (19:12)
[2019-05-04] MEDS ORDERED: chlordiazePOXIDE HCL 25 MG CAPSULE PO PRN (19:12)
[2019-05-04] MEDS ORDERED: MENTHOL/PHENOL 1 EACH UD MM PRN (19:12)
[2019-05-04] MEDS ORDERED: MAGNESIUM CITRATE 300 ML BOTTLE PO PRN (19:12)
[2019-05-04] MEDS ORDERED: BISMUTH SUBSALICYLATE 524 MG/30 ML UD PO PRN (19:12)
[2019-05-04] MEDS ORDERED: MELATONIN 5 MG TABLETS PO PRN (19:12)
[2019-05-04] MEDS ORDERED: ALBUTEROL SO4 8 GM HFA INHALER IH PRN (19:14)
[2019-05-04] MEDS: METHOCARBAMOL 500 MG TABLET PO PRN (20:39)
[2019-05-04] MEDS: hydrOXYzine PAMOATE 25 MG CAPSULE (FP) PO PRN (20:39)
[2019-05-04] MEDS: NICOTINE 21 MG/24 HOURS TOPICAL PATCH TD SCH (20:41)
[2019-05-04] MEDS: TIMOLOL 0.5% OPHTHALMIC SOL 5 ML BOTTLE OU SCH (23:12)
[2019-05-04] MEDS: THIAMINE HCL 100 MG TABLET (FP) PO SCH (23:13)
[2019-05-04] MEDS: RANITIDINE HCL 150 MG TABLET (FP) PO SCH (23:13)
[2019-05-04] MEDS: LATANOPROST 0.005% OPHTH SOLN 2.5ML BOTTLE OU SCH (23:13)
[2019-05-04] MEDS: chlordiazePOXIDE HCL 25 MG CAPSULE PO SCH (23:13)
[2019-05-05] MEDS: chlordiazePOXIDE HCL 25 MG CAPSULE PO SCH ×4 (05:43→22:10)
[2019-05-05] MEDS: METHOCARBAMOL 500 MG TABLET PO PRN ×2 (05:46→22:10)
[2019-05-05] MEDS ORDERED: COLLOIDAL OATMEAL 1 BAR EACH TP PRN (09:54)
[2019-05-05] MEDS ORDERED: ONDANSETRON *ODT* 4 MG TABLET SL PRN (09:55)
[2019-05-05 10:40] LABS: BILIRUBIN,TOTAL 0.6 mg/dL (0.2-1); BLOOD UREA NITROGEN 6.2 mg/dL (7-18); CALCIUM 8.4 mg/dL (8.5-10.1); CREATININE 0.9 mg/dL (0.55-1.3); POTASSIUM 4.1 mmol/L (3.5-5.1); TOT PROT 6.2 g/dl (6.4-8.2)
[2019-05-05] MEDS: PRENATAL VITAMINS W/ FOLIC ACID TABLET (FP) PO SCH (10:46)
[2019-05-05] MEDS: TAMSULOSIN HCL 0.4 MG CAP PO SCH (10:46)
[2019-05-05] MEDS: NICOTINE 21 MG/24 HOURS TOPICAL PATCH TD SCH (10:46)
[2019-05-05] MEDS: RANITIDINE HCL 150 MG TABLET (FP) PO SCH ×2 (10:46→22:10)
[2019-05-05] MEDS: hydrOXYzine PAMOATE 25 MG CAPSULE (FP) PO PRN ×2 (10:49→22:11)
[2019-05-05] MEDS: TIMOLOL 0.5% OPHTHALMIC SOL 5 ML BOTTLE OU SCH ×2 (10:50→22:19)
[2019-05-05 10:56] LABS: HEMATOCRIT 34.4 % (35.4-49); HEMOGLOBIN 11.7 GM/dL (11.7-16.9); MCH 30.6 pg (25.7-33.7); MEAN CELL VOLUME 89.9 fl (80-96); MEAN PLT VOLUME 9.2 fl (7.5-11.1); PLATELET COUNT 312 K/MM3 (134-434); RBC 3.83 M/mm3 (4.00-5.60); RDW 15.7 % (11.9-15.9); WHITE BLOOD COUNT 3.9 K/mm3 (4.0-10.0)
[2019-05-05 11:01] LABS: EPI CELLS 1.1 /HPF (0-5/HPF); HYALINE CASTS 27 /lpf (0-8); PH,URINE 5.5 (5.0-8.0); URINE APPEARANCE CLEAR; URINE BACTERIA 53.2 /hpf (NEGATIVE); URINE BILIRUBIN NEGATIVE (NEGATIVE); URINE COLOR DK YELLOW; URINE GLUCOSE (UA) NEGATIVE (NEGATIVE); URINE KETONE TRACE (NEGATIVE); URINE LEUK ESTERASE 1+ (NEGATIVE); URINE NITRITE NEGATIVE (NEGATIVE); URINE PROTEIN 1+ (NEGATIVE); URINE RBC 3 /hpf (0-4); URINE WBC 37 /hpf (0-5)
--- NOTE | 2019-05-05 12:59 | PN ---
[facility] CIWA - CIWA Score Nausea/Vomitin-Mild Nausea/No Vomiting Muscle Tremors: 4-Moderate,w/Arms Extend Anxiety: 4-Mod. Anxious/Guarded Agitation: 3 Paroxysmal Sweats: 3 Orientation: 0-Oriented Tacttile Disturbances: 0-None Auditory Disturbances: 0-None Visual Disturbances: 0-None Headache: 0-None Present CIWA-Ar Total Score: 15 S Progress Note (SOAP) Subjective: Tremor, chills, stomachache, nausea, interrupted sleep, generalized itching and crawling on skin intermittently (relieved with atarax as per patient) Objective: 05/05/19 12:56 Last Vital Signs Temp Pulse Resp BP Pulse Ox 98.1 F 64 16 131/64 05/05/19 09:14 05/05/19 09:14 05/05/19 09:14 05/05/19 09:14 Elevated b/p noted: denies htn, could be r/t withdrawal. Follow up with PCP for monitoring. Laboratory Tests 05/05/19 05/05/19 05/05/19 07:30 07:30 07:30 WBC 3.9 L RBC 3.83 L Hgb 11.7 Hct 34.4 L MCV 89.9 MCH 30.6 MCHC 34.0 RDW 15.7 MPV 9.2 Sodium 141 Potassium 4.1 Chloride 106 Carbon Dioxide 30 Anion Gap 5 L BUN 6.2 L Creatinine 0.9 Est GFR (CKD-EPI)AfAm 107.22 Est GFR (CKD-EPI)NonAf 92.51 Random Glucose 76 Calcium 8.4 L Total Bilirubin 0.6 AST 24 ALT 17 Alkaline Phosphatase 112 Total Protein 6.2 L Albumin 3.0 L Urine Color Urine Appearance Urine pH Ur Specific [place] Urine Protein Urine Glucose (UA) Urine Ketones Urine Blood Urine Nitrite Urine Bilirubin Urine Urobilinogen Ur Leukocyte Esterase Urine WBC (Auto) Urine RBC (Auto) Urine Casts (Auto) U Epithel Cells (Auto) Urine Bacteria (Auto) RPR Titer Nonreactive 05/05/19 08:30 WBC RBC Hgb Hct MCV MCH MCHC RDW MPV Sodium Potassium Chloride Carbon Dioxide Anion Gap BUN Creatinine Est GFR (CKD-EPI)AfAm Est GFR (CKD-EPI)NonAf Random Glucose Calcium Total Bilirubin AST ALT Alkaline Phosphatase Total Protein Albumin Urine Color Dk yellow Urine Appearance Clear Urine pH 5.5 Ur Specific [place] 1.023 Urine Protein 1+ H Urine Glucose (UA) Negative Urine Ketones Trace H Urine Blood Negative Urine Nitrite Negative Urine Bilirubin Negative Urine Urobilinogen 1.0 Ur Leukocyte Esterase 1+ H Urine WBC (Auto) 37 Urine RBC (Auto) 3 Urine Casts (Auto) 27 U Epithel Cells (Auto) 1.1 Urine Bacteria (Auto) 53.2 RPR Titer Labs reviewed: abnormal UA noted, no platelet count noted (result pending) Assessment: 05/05/19 12:59 Withdrawal symptoms Noted with abnormal UA Plan: Continue detox Encouraged PO water hydration Abnormal UA: repeat UA
[2019-05-05] MEDS: THIAMINE HCL 100 MG TABLET (FP) PO SCH (22:09)
[2019-05-05] MEDS: SODIUM CHLORIDE NASAL SPRAY 44 ML BOTTLE NS PRN (22:10)
[2019-05-05] MEDS: LATANOPROST 0.005% OPHTH SOLN 2.5ML BOTTLE OU SCH (22:49)
[2019-05-06] MEDS: chlordiazePOXIDE HCL 25 MG CAPSULE PO SCH ×3 (06:42→18:14)
[2019-05-06] MEDS: METHOCARBAMOL 500 MG TABLET PO PRN ×2 (06:43→18:14)
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
[2019-05-06] MEDS: TIMOLOL 0.5% OPHTHALMIC SOL 5 ML BOTTLE OU SCH ×2 (10:51→22:43)
[2019-05-06] MEDS: PRENATAL VITAMINS W/ FOLIC ACID TABLET (FP) PO SCH (10:51)
[2019-05-06] MEDS: TAMSULOSIN HCL 0.4 MG CAP PO SCH (10:51)
[2019-05-06] MEDS: RANITIDINE HCL 150 MG TABLET (FP) PO SCH ×2 (10:51→22:39)
[2019-05-06] MEDS: NICOTINE 21 MG/24 HOURS TOPICAL PATCH TD SCH (10:52)
[2019-05-06] MEDS: SODIUM CHLORIDE NASAL SPRAY 44 ML BOTTLE NS PRN (12:10)
--- NOTE | 2019-05-06 14:14 | PN ---
S CIWA - CIWA Score Nausea/Vomitin Muscle Tremors: 3 Anxiety: 4-Mod. Anxious/Guarded Agitation: 2 Paroxysmal Sweats: No Perspiration Orientation: 0-Oriented Tacttile Disturbances: 0-None Auditory Disturbances: 1-Very Mild Visual Disturbances: 1-Very Mild Sensitivity Headache: 0-None Present CIWA-Ar Total Score: 14 BHS Progress Note (SOAP) Subjective: Tremors, Body Aches, Poor Appetite, Nausea, Anxious. Objective: PATIENT A & O X 3, OBSERVED AMBULATING ON UNIT WITH ASSISTANCE OF A CANE. IN NO ACUTE DISTRESS. 05/06/19 14:10 Vital Signs Temperature 97.9 F 05/06/19 12:52 Pulse Rate 70 05/06/19 12:52 Respiratory Rate 18 05/06/19 12:52 Blood Pressure 134/79 05/06/19 12:52 O2 Sat by Pulse Oximetry (%) Laboratory Tests 05/05/19 05/05/19 05/05/19 07:30 07:30 07:30 WBC 3.9 L RBC 3.83 L Hgb 11.7 Hct 34.4 L MCV 89.9 MCH 30.6 MCHC 34.0 RDW 15.7 Plt Count 312 D MPV 9.2 Sodium 141 Potassium 4.1 Chloride 106 Carbon Dioxide 30 Anion Gap 5 L BUN 6.2 L Creatinine 0.9 Est GFR (CKD-EPI)AfAm 107.22 Est GFR (CKD-EPI)NonAf 92.51 Random Glucose 76 Calcium 8.4 L Total Bilirubin 0.6 AST 24 ALT 17 Alkaline Phosphatase 112 Total Protein 6.2 L Albumin 3.0 L Urine Color Urine Appearance Urine pH Ur Specific [place] Urine Protein Urine Glucose (UA) Urine Ketones Urine Blood Urine Nitrite Urine Bilirubin Urine Urobilinogen Ur Leukocyte Esterase Urine WBC (Auto) Urine RBC (Auto) Urine Casts (Auto) U Epithel Cells (Auto) Urine Bacteria (Auto) RPR Titer Nonreactive 05/05/19 08:30 WBC RBC Hgb Hct MCV MCH MCHC RDW Plt Count MPV Sodium Potassium Chloride Carbon Dioxide Anion Gap BUN Creatinine Est GFR (CKD-EPI)AfAm Est GFR (CKD-EPI)NonAf Random Glucose Calcium Total Bilirubin AST ALT Alkaline Phosphatase Total Protein Albumin Urine Color Dk yellow Urine Appearance Clear Urine pH 5.5 Ur Specific [place] 1.023 Urine Protein 1+ H Urine Glucose (UA) Negative Urine Ketones Trace H Urine Blood Negative Urine Nitrite Negative Urine Bilirubin Negative Urine Urobilinogen 1.0 Ur Leukocyte Esterase 1+ H Urine WBC (Auto) 37 Urine RBC (Auto) 3 Urine Casts (Auto) 27 U Epithel Cells (Auto) 1.1 Urine Bacteria (Auto) 53.2 RPR Titer LABS NOTED. PATIENT HAS BEEN ANEMIC ON PREVIOUS ADMISSIONS. 05/06/19 14:12 Assessment: 05/06/19 14:12 WITHDRAWAL SYMPTOMS. ANEMIA. Plan: CONTINUE DETOX. ENSURE BID FOR CALORIC SUPPLEMENTATION. INCREASE DAILY PO FLUID INTAKE. PRN ZOFRAN SL FOR NASUEA. PATIENT IS CURRENTLY RECEIVING DAILY MVI CONTAINING B VITAMINS AND IRON WHILE ADMITTED FOR DETOX.
[2019-05-06] MEDS ORDERED: BENZTROPINE MESYLATE 0.5 MG TABLET (FP) PO SCH (22:00)
[2019-05-06] MEDS: risperiDONE 1 MG TABLET (FP) PO SCH (22:39)
[2019-05-06] MEDS: chlordiazePOXIDE HCL 10 MG CAPSULE PO SCH (22:39)
[2019-05-06] MEDS: THIAMINE HCL 100 MG TABLET (FP) PO SCH (22:39)
[2019-05-06] MEDS: BENZTROPINE MESYLATE 1 MG TABLET (FP) PO SCH (22:40)
[2019-05-06] MEDS: traZODone HCL 100 MG TABLET (FP) PO SCH (22:42)
[2019-05-06] MEDS: LATANOPROST 0.005% OPHTH SOLN 2.5ML BOTTLE OU SCH (22:43)
[2019-05-06] MEDS ORDERED: chlordiazePOXIDE HCL 10 MG CAPSULE PO PRN (23:00)
[2019-05-07] MEDS: chlordiazePOXIDE HCL 10 MG CAPSULE PO SCH ×4 (06:34→22:33)
--- NOTE | 2019-05-07 10:08 | PN ---
[facility] CIWA - CIWA Score Nausea/Vomitin-Mild Nausea/No Vomiting Muscle Tremors: 1-None Visible, but [place] Anxiety: 1-Mildly Anxious Agitation: 1-Slight > Activity Paroxysmal Sweats: 1-Minimal Palms Moist Orientation: 0-Oriented Tacttile Disturbances: 1-Very Mild Itch/Numbness Auditory Disturbances: 1-Very Mild Visual Disturbances: 0-None Headache: 1-Very Mild CIWA-Ar Total Score: 8 S Progress Note (SOAP) Subjective: alert,irritable,anxious,interrupted sleep,pain in the ankle Objective: 05/07/19 10:07 Vital Signs Temperature 97.9 F 05/07/19 09:49 Pulse Rate 84 05/07/19 09:49 Respiratory Rate 18 05/07/19 09:49 Blood Pressure 121/72 05/07/19 09:49 O2 Sat by Pulse Oximetry (%) Assessment: 05/07/19 10:08 withdrawal symptom Plan: continue detox,discharge in am
[2019-05-07] MEDS: BENZTROPINE MESYLATE 1 MG TABLET (FP) PO SCH ×2 (10:48→22:35)
[2019-05-07] MEDS: NICOTINE 21 MG/24 HOURS TOPICAL PATCH TD SCH (10:48)
[2019-05-07] MEDS: risperiDONE 1 MG TABLET (FP) PO SCH ×2 (10:49→22:33)
[2019-05-07] MEDS: RANITIDINE HCL 150 MG TABLET (FP) PO SCH ×2 (10:49→22:33)
[2019-05-07] MEDS: TIMOLOL 0.5% OPHTHALMIC SOL 5 ML BOTTLE OU SCH ×2 (10:49→22:36)
[2019-05-07] MEDS: TAMSULOSIN HCL 0.4 MG CAP PO SCH (10:49)
[2019-05-07] MEDS: PRENATAL VITAMINS W/ FOLIC ACID TABLET (FP) PO SCH (10:49)
[2019-05-07] MEDS: SODIUM CHLORIDE NASAL SPRAY 44 ML BOTTLE NS PRN ×2 (11:10→17:35)
[2019-05-07] MEDS: traZODone HCL 100 MG TABLET (FP) PO SCH (22:33)
[2019-05-07] MEDS: LATANOPROST 0.005% OPHTH SOLN 2.5ML BOTTLE OU SCH (22:36)
[2019-05-07] MEDS: THIAMINE HCL 100 MG TABLET (FP) PO SCH (22:36)
[2019-05-08 08:11] VITALS: BP 129/67; PULSE 61; TEMP 97.7
--- NOTE | 2019-05-08 08:26 | DS ---
[facility] Detox Discharge Summary Admission Date: 05/04/19 Discharge Date: 05/08/19 - History Present History: Alcohol Dependence, Cannabis Dependence - Physical Exam Results Vital Signs: Vital Signs Temperature 97.7 F 05/08/19 08:11 Pulse Rate 61 05/08/19 08:11 Respiratory Rate 18 05/08/19 08:11 Blood Pressure 129/67 05/08/19 08:11 O2 Sat by Pulse Oximetry (%) - Treatment Hospital Course: Detox Protocol Followed, Detoxed Safely, Responded well, Discharged Condition Good, Rehab Referral Accepted - Medication Discharge Medications: Ambulatory Orders Ranitidine [Zantac -] 150 mg PO BID #60 tablet 06/08/18 Gabapentin [Neurontin -] 400 mg PO TID 10/17/18 traZODone HCL [Desyrel -] 100 mg PO HS #30 tablet 10/31/18 Latanoprost 0.005% Eye Drops [Xalatan 0.005% Eye Drops -] 1 drop OU HS #1 bottle 01/13/19 Tamsulosin HCl [Flomax -] 0.4 mg PO DAILY #14 cap.er.24h 01/13/19 Timolol 0.5% [Timoptic 0.5%] 1 drop OU BID #1 drops 01/13/19 Albuterol Sulfate Inhaler - [Ventolin Hfa Inhaler -] 2 inh PO Q4H PRN 02/21/19 Flunisolide 0.025 spray PO BID 05/04/19 Hydroxyzine HCl 25 mg PO TID PRN 05/04/19 Magnesium 400 mg PO DAILY 05/04/19 - Diagnosis (1) Alcohol dependence with uncomplicated intoxication Current Visit: Yes Status: Chronic (2) Schizoaffective disorder Current Visit: Yes Status: Chronic (3) Alcohol dependence with uncomplicated withdrawal Current Visit: Yes Status: Chronic (4) Alcohol-induced mood disorder Current Visit: No Status: Acute (5) Alcohol-induced sleep disorder Current Visit: No Status: Acute (6) Cannabis dependence Current Visit: No Status: Chronic (7) Disorder of the skin and subcutaneous tissue, unspecified Current Visit: No Status: Acute (8) Drug-induced mood disorder Current Visit: No Status: Acute (9) Syncope Current Visit: Yes Status: Acute (10) Thrombocytopenia Current Visit: No Status: Acute (11) Weight loss Current Visit: No Status: Acute (12) Anxiety and depression Current Visit: No Status: Chronic (13) Arthritis Current Visit: No Status: Chronic (14) Asthma Current Visit: No Status: Chronic Qualifiers: Asthma severity: mild Asthma persistence: intermittent Asthma complication type: with status asthmaticus Qualified Code(s): J45.22 - Mild intermittent asthma with status asthmaticus (15) BPH (benign prostatic hypertrophy) Current Visit: No Status: Chronic Qualifiers: Lower urinary tract symptom presence: symptoms absent Qualified Code(s): N40.0 - Benign prostatic hyperplasia without lower urinary tract symptoms (16) Cataract Current Visit: No Status: Chronic Qualifiers: Cataract type: age-related (17) Chronic low back pain Current Visit: No Status: Chronic Qualifiers: Back pain laterality: unspecified Sciatica presence: unspecified whether sciatica present Qualified Code(s): M54.5 - Low back pain; G89.29 - Other chronic pain (18) Chronic neck pain Current Visit: No Status: Chronic (19) Cocaine dependence Current Visit: No Status: Chronic Qualifiers: Substance use status: uncomplicated Qualified Code(s): F14.20 - Cocaine dependence, uncomplicated (20) Depression with anxiety Current Visit: No Status: Chronic (21) Gastroesophageal reflux disease Current Visit: No Status: Chronic (22) Glaucoma Current Visit: No Status: Chronic Qualifiers: Glaucoma type: unspecified Laterality: unspecified laterality Qualified Code(s): H40.9 - Unspecified glaucoma (23) Glaucoma of both eyes Current Visit: No Status: Chronic Qualifiers: Glaucoma type: primary angle-closure Primary angle closure glaucoma type: chronic Glaucoma stage: mild stage Qualified Code(s): H40.2231 - Chronic angle-closure glaucoma, bilateral, mild stage (24) History of neck surgery Current Visit: No Status: Chronic (25) History of schizoaffective disorder Current Visit: No Status: Chronic (26) Insomnia Current Visit: No Status: Chronic (27) Nicotine dependence Current Visit: Yes Status: Chronic Qualifiers: Nicotine product type: cigarettes Substance use status: uncomplicated Qualified Code(s): F17.210 - Nicotine dependence, cigarettes, uncomplicated (28) Non-compliance with treatment Current Visit: No Status: Chronic (29) Personal history of other diseases of the musculoskeletal system and connective tissue Current Visit: No Status: Chronic (30) Schizophrenia, undifferentiated Current Visit: No Status: Chronic (31) Substance induced mood disorder Current Visit: No Status: Chronic (32) Use of cane as ambulatory aid Current Visit: No Status: Chronic (33) Alcohol related seizure Current Visit: No Status: Resolved (34) Gastric ulcer Current Visit: Yes Status: Chronic Qualifiers: Gastric ulcer chronicity: chronic (35) Status post cataract surgery Current Visit: No Status: Resolved (36) Paranoid schizophrenia Current Visit: No Status: Ruled-out - AMA Did Patient Leave Against Medical Advice: No ([facility])
[2019-05-08] MEDS: BENZTROPINE MESYLATE 1 MG TABLET (FP) PO SCH (10:56)
[2019-05-08] MEDS: PRENATAL VITAMINS W/ FOLIC ACID TABLET (FP) PO SCH (10:56)
[2019-05-08] MEDS: TAMSULOSIN HCL 0.4 MG CAP PO SCH (10:56)
[2019-05-08] MEDS: risperiDONE 1 MG TABLET (FP) PO SCH (10:56)
[2019-05-08] MEDS: RANITIDINE HCL 150 MG TABLET (FP) PO SCH (10:56)
[2019-05-08] MEDS: SODIUM CHLORIDE NASAL SPRAY 44 ML BOTTLE NS PRN (10:57)
[2019-05-08] MEDS: NICOTINE 21 MG/24 HOURS TOPICAL PATCH TD SCH (10:57)
[2019-05-08] MEDS: TIMOLOL 0.5% OPHTHALMIC SOL 5 ML BOTTLE OU SCH (11:01)
[2019-05-08] MEDS: chlordiazePOXIDE HCL 10 MG CAPSULE PO SCH (11:02)
== END 2019-05-08 11:35 | disposition home or self-care (01) | DRG 774 ==
LOC: YASAS 14:52 → Y6N 19:44
PROVIDERS: ADMIT Surgery; ATTEND Surgery
PROC: HZ2ZZZZ Detoxification Services for Substance Abuse Treatment (ICD-10-PCS; principal; 2019-05-04)
DX: F10.230 Alcohol dependence with withdrawal, uncomplicated (principal); F10.220 Alcohol dependence with intoxication, uncomplicated; F14.20 Cocaine dependence, uncomplicated; F12.20 Cannabis dependence, uncomplicated; F25.9 Schizoaffective disorder, unspecified; F10.24 Alcohol dependence with alcohol-induced mood disorder; F10.282 Alcohol dependence with alcohol-induced sleep disorder; F19.24 Other psychoactive substance dependence with psychoactive substance-induced mood disorder; F41.9 Anxiety disorder, unspecified; F32.9 Major depressive disorder, single episode, unspecified; K25.9 Gastric ulcer, unspecified as acute or chronic, without hemorrhage or perforation; K21.9 Gastro-esophageal reflux disease without esophagitis; J45.22 Mild intermittent asthma with status asthmaticus; L98.8 Other specified disorders of the skin and subcutaneous tissue; D69.6 Thrombocytopenia, unspecified; M12.9 Arthropathy, unspecified; M54.5 Low back pain; M54.2 Cervicalgia; G89.29 Other chronic pain; N40.0 Benign prostatic hyperplasia without lower urinary tract symptoms; H40.2231 Chronic angle-closure glaucoma, bilateral, mild stage; R63.4 Abnormal weight loss; Z68.25 Body mass index [BMI] 25.0-25.9, adult; Z99.89 Dependence on other enabling machines and devices; Z98.49 Cataract extraction status, unspecified eye; Z91.19 Patient's noncompliance with other medical treatment and regimen
CPT/HCPCS: 36415; 80053; 81003; 85027; 86593; J2794

== ENCOUNTER 2019-05-28 13:48 | Inpatient (IN) | payer OTHER ==
[2019-05-28 15:00] VITALS: BMI 25.9
--- NOTE | 2019-05-28 17:58 | HP ---
CIWA Score - Admission Criteria [facility] Guidelines: Admission for Medically Managed Detox: Requires at least one of the followin. CIWA greater than 12 2. Seizures within the past 24 hours 3. Delirium tremens within the past 24 hours 4. Hallucinations within the past 24 hours 5. Acute intervention needed for co occurring medical disorder 6. Acute intervention needed for co occurring psychiatric disorder 7. Severe withdrawal that cannot be handled at a lower level of care (continued vomiting, continued diarrhea, abnormal vital signs) requiring intravenous medication and/or fluids 8. Admission ROS S - HPI Chief Complaint: here for rehab. 58 yo with glaucoma, cataract, BPH, HTN, on multiple meds, comes here every month. Last here and discharged ~05/06. Pt was then admitted to [facility] after he fell on the train. Pt states he was put on all new meds and pt states left the hospital about 3 days ago. Pt states he has been on the street since release from hospital Pt states he is homeless and lives on the street. States he does not like to stay in care home. Pt gets SSI. alcohol- 3-4 pints alcohol/day, beer- last drink 5 days ago Utox- BZO MK-0 Allergies/Adverse Reactions: Allergies Allergy/AdvReac Type Severity Reaction Status Date / Time metoclopramide HCl Allergy Severe Swelling Verified 05/28/19 14:33 [From Reglan] Penicillins Allergy Severe Hives Verified 05/28/19 14:33 shellfish derived Allergy Severe Swelling Verified 05/28/19 14:33 orange juice AdvReac Mild Rash Verified 05/28/19 14:33 - Ebola screening Have you traveled outside of the country in the last 21 days: No Have you had contact with anyone from an Ebola affected area: No Do you have a fever: No - Review of Systems Constitutional: No Symptoms Reported EENT: reports: No Symptoms Reported Respiratory: reports: No Symptoms reported Cardiac: reports: No Symptoms Reported GI: reports: No Symptoms Reported : reports: No Symptoms Reported Musculoskeletal: reports: No Symptoms Reported Integumentary: reports: No Symptoms Reported Neuro: reports: Unsteady Gait, Other (neck pain) Endocrine: reports: No Symptoms Reported Hematology: reports: No Symptoms Reported Psychiatric: reports: No Sypmtoms Reported Patient History - Patient Medical History Hx Anemia: No Hx Asthma: No Hx Chronic Obstructive Pulmonary Disease (COPD): No Hx Cancer: No Hx Cardiac Disorders: No Hx Congestive Heart Failure: No Hx Hypertension: No Hx Hypercholesterolemia: No Hx Pacemaker: No HX Cerebrovascular Accident: No Hx Seizures: Yes (last 05/03/19) Hx Dementia: No Hx Diabetes: No Hx Gastrointestinal Disorders: Yes (gastric ulcers) Hx Liver Disease: No Hx Genitourinary Disorders: No Hx Sexually Transmitted Disorders: No Hx Renal Disease (ESRD): Yes (BPH) Hx Thyroid Disease: No Hx Human Immunodeficiency Virus (HIV): No (05/14 negative ) Hx Hepatitis C: No Hx Depression: Yes Hx Suicide Attempt: No (Denies suicidal ideation at this time) Hx Bipolar Disorder: No Hx Schizophrenia: No - Patient Surgical History Past Surgical History: Yes Hx Neurologic Surgery: Yes (C-SPINE FUSION IN 2016) Hx Cataract Extraction: No Hx Cardiac Surgery: No Hx Lung Surgery: No Hx Breast Surgery: No Hx Breast Biopsy: No Hx Abdominal Surgery: No Hx Appendectomy: No Hx Cholecystectomy: No Hx Genitourinary Surgery: No Hx Section: No Hx Orthopedic Surgery: Yes (Sx bilateral wrist and R ankle sx; ON THE NECK) Other Surgical History: HE FELL DOWN 4 DAYS AGO AND INJURED THE SCALP - STAPLED Anesthesia Reaction: No - PPD History Date: 06/05/18 Results: 0 MM - Smoking Cessation Smoking history: Current every day smoker Have you smoked in the past 12 months: No Aproximately how many cigarettes per day: 40 Cigars Per Day: 0 Hx Chewing Tobacco Use: No Initiated information on smoking cessation: Yes 'Breaking Loose' booklet given: 05/28/19 - Substances abused Alcohol Substance route: Oral Frequency: Daily Amount used: 3 pints of vodka, 24 oz of beer Age of first use: 14 Date of last use: 05/23/19 Family Disease History - Family Disease History Family Disease History: Other: Father (alcohol,), Mother (alcohol), Brother (alcohol), Sister (alcohol) Admission Physical Exam [facility] - Vital Signs Vital Signs: Vital Signs - 24 hr 05/28/19 14:29 Temperature 98.3 F Pulse Rate 80 Respiratory 17 Rate Blood Pressure 111/71 - Physical General Appearance: Yes: Within Normal Limits HEENTM: Yes: Within Normal Limits, Hearing grossly Normal, Normal Voice, MARISOL Respiratory: Yes: Within Normal Limits, Chest Non-Tender, Lungs Clear Neck: Yes: Within Normal Limits, No masses,lesions,Nodules Cardiology: Yes: Within Normal Limits, Regular Rhythm Abdominal: Yes: Within Normal Limits, Normal Bowel Sounds Genitourinary: Yes: Within Normal Limits Back: Yes: Within Normal Limits Musculoskeletal: Yes: Within Normal Limits Extremities: Yes: Other (1+edema saul- pt states was on his feet for the last several days) 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: Yes: Within Normal Limits, Fully Oriented, Alert Integumentary: Yes: Within Normal Limits, Normal Color, Warm Lymphatic: Yes: Within Normal Limits - Diagnostic (1) Alcohol-induced mood disorder Current Visit: No Status: Acute (2) Disorder of the skin and subcutaneous tissue, unspecified Current Visit: No Status: Acute (3) Cataract Current Visit: No Status: Chronic Qualifiers: Cataract type: age-related (4) Chronic neck pain Current Visit: No Status: Chronic (5) Depression with anxiety Current Visit: No Status: Chronic (6) Schizoaffective disorder Current Visit: No Status: Chronic (7) Substance induced mood disorder Current Visit: No Status: Chronic (8) Use of cane as ambulatory aid Current Visit: No Status: Chronic Breathalyzer - Breathalyzer Breathalyzer: 0 Urine Drug Screen - Test Device Lot number: [id number] Expiration date: 01/24/21 - Control Is test valid?: Yes - Results Drug screen NEGATIVE: No Urine drug screen results: BZO-Benzodiazepines Inpatient Rehab Admission - Rehab Decision to Admit Inpatient rehab admission?: Yes - Initial Determination Are CD services needed?: Yes Free of communicable disease: Yes Not in need of hospitalization: Yes - Rehab Admission Criteria Previous failed treatment: Yes Poor recovery environment: Yes Comorbidities: Yes Lacks judgement: Yes Patient is meeting Inpatient Rehab admission criteria:: Yes (pt has long h/o alcohol use)
[2019-05-28] MEDS ORDERED: MAG HYDROX/AL HYDROX/SIMETH 30 ML UNIT-DOSE CUP PO PRN (18:09)
[2019-05-28] MEDS ORDERED: IBUPROFEN 400 MG TABLET (FP) PO PRN (18:09)
[2019-05-28] MEDS ORDERED: MAGNESIUM CITRATE 300 ML BOTTLE PO PRN (18:09)
[2019-05-28] MEDS ORDERED: LOPERAMIDE HCL 2 MG CAPSULE PO PRN (18:09)
[2019-05-28] MEDS ORDERED: ALBUTEROL SO4 8 GM HFA INHALER IH PRN (18:10)
[2019-05-28] MEDS: THIAMINE HCL 100 MG TABLET (FP) PO SCH (21:20)
[2019-05-28] MEDS: LATANOPROST 0.005% OPHTH SOLN 2.5ML BOTTLE OU SCH (21:20)
[2019-05-28] MEDS: RANITIDINE HCL 150 MG TABLET (FP) PO SCH (21:20)
[2019-05-28] MEDS: traZODone HCL 100 MG TABLET (FP) PO SCH (21:21)
[2019-05-28] MEDS: TIMOLOL 0.5% OPHTHALMIC SOL 5 ML BOTTLE OU SCH (22:40)
[2019-05-29] MEDS: TIMOLOL 0.5% OPHTHALMIC SOL 5 ML BOTTLE OU SCH ×2 (06:48→17:51)
[2019-05-29 08:41] LABS: PH,URINE 6.5 (5.0-8.0); URINE APPEARANCE CLEAR; URINE BILIRUBIN NEGATIVE (NEGATIVE); URINE COLOR YELLOW; URINE GLUCOSE (UA) NEGATIVE (NEGATIVE); URINE KETONE NEGATIVE (NEGATIVE); URINE LEUK ESTERASE NEGATIVE (NEGATIVE); URINE NITRITE NEGATIVE (NEGATIVE); URINE PROTEIN NEGATIVE (NEGATIVE); URINE UROBILINOGEN 0.2 mg/dL (0.2-1.0)
[2019-05-29] MEDS: RANITIDINE HCL 150 MG TABLET (FP) PO SCH ×2 (10:10→21:38)
[2019-05-29] MEDS: LORATADINE 10 MG TABLET PO SCH (10:10)
[2019-05-29] MEDS: PRENATAL VITAMINS W/ FOLIC ACID TABLET (FP) PO SCH (10:10)
[2019-05-29] MEDS: TAMSULOSIN HCL 0.4 MG CAP PO SCH (10:11)
[2019-05-29] MEDS: NICOTINE 21 MG/24 HOURS TOPICAL PATCH TD SCH (10:11)
[2019-05-29 12:03] LABS: HEMATOCRIT 33.7 % (35.4-49); MCH 29.4 pg (25.7-33.7); MCHC 32.5 g/dl (32.0-35.9); MEAN CELL VOLUME 90.5 fl (80-96); MEAN PLT VOLUME 9.6 fl (7.5-11.1); PLATELET COUNT 206 K/MM3 (134-434); RBC 3.73 M/mm3 (4.00-5.60); RDW 16.4 % (11.9-15.9); WHITE BLOOD COUNT 3.1 K/mm3 (4.0-10.0)
[2019-05-29 12:18] LABS: ALBUMIN 3.3 g/dl (3.4-5.0); BILIRUBIN,TOTAL 0.4 mg/dL (0.2-1); BLOOD UREA NITROGEN 12.4 mg/dL (7-18); CALCIUM 8.7 mg/dL (8.5-10.1); CREATININE 0.9 mg/dL (0.55-1.3); POTASSIUM 4.2 mmol/L (3.5-5.1); TOT PROT 6.4 g/dl (6.4-8.2)
[2019-05-29] MEDS: ACETAMINOPHEN 325 MG TABLET (FP) PO PRN (17:39)
[2019-05-29] MEDS: traZODone HCL 100 MG TABLET (FP) PO SCH (21:38)
[2019-05-29] MEDS: THIAMINE HCL 100 MG TABLET (FP) PO SCH (21:38)
[2019-05-29] MEDS: LATANOPROST 0.005% OPHTH SOLN 2.5ML BOTTLE OU SCH (21:38)
[2019-05-30] MEDS: TIMOLOL 0.5% OPHTHALMIC SOL 5 ML BOTTLE OU SCH ×2 (06:37→16:56)
[2019-05-30] MEDS: COLLOIDAL OATMEAL 1 BAR EACH TP PRN (10:00)
[2019-05-30] MEDS: TAMSULOSIN HCL 0.4 MG CAP PO SCH (10:00)
[2019-05-30] MEDS: RANITIDINE HCL 150 MG TABLET (FP) PO SCH ×2 (10:00→21:35)
[2019-05-30] MEDS: PRENATAL VITAMINS W/ FOLIC ACID TABLET (FP) PO SCH (10:00)
[2019-05-30] MEDS: NICOTINE 21 MG/24 HOURS TOPICAL PATCH TD SCH (10:00)
[2019-05-30] MEDS: LORATADINE 10 MG TABLET PO SCH (10:01)
[2019-05-30] MEDS: ACETAMINOPHEN 325 MG TABLET (FP) PO PRN (10:01)
[2019-05-30] MEDS ORDERED: MINERAL OIL/PETROLAT/WATER TOPICAL CREAM 454 GM JAR TP PRN (10:18)
[2019-05-30] MEDS ORDERED: MINERAL OIL/PETROLAT/WATER TOPICAL CREAM 113 GM JAR TP PRN (10:30)
[2019-05-30] MEDS: hydrOXYzine HCL 25 MG TABLET (FP) PO PRN (11:23)
[2019-05-30] MEDS ORDERED: PT OWN MED DRAWER 7, Y5N ONE (20:42)
[2019-05-30] MEDS: LATANOPROST 0.005% OPHTH SOLN 2.5ML BOTTLE OU SCH (21:33)
[2019-05-30] MEDS: SODIUM CHLORIDE NASAL SPRAY 44 ML BOTTLE NS PRN (21:34)
[2019-05-30] MEDS: THIAMINE HCL 100 MG TABLET (FP) PO SCH (21:35)
[2019-05-30] MEDS: guaiFENesin 200 MG/10 ML 10 ML UNIT-DOSE CUPS PO PRN (21:53)
[2019-05-30] MEDS: traZODone HCL 100 MG TABLET (FP) PO SCH (22:00)
[2019-05-31] MEDS: TIMOLOL 0.5% OPHTHALMIC SOL 5 ML BOTTLE OU SCH ×2 (06:39→16:58)
[2019-05-31] MEDS ORDERED: PT OWN MED DRAWER 7, Y5N ONE ×3 (08:35→20:41)
[2019-05-31] MEDS: MAGNESIUM HYDROX 2400MG/30ML ORAL SUSPENSION 30 ML CUP PO PRN (10:12)
[2019-05-31] MEDS: FERROUS SO4 325 MG TABLET (FP) PO SCH (10:13)
[2019-05-31] MEDS: TAMSULOSIN HCL 0.4 MG CAP PO SCH (10:13)
[2019-05-31] MEDS: RANITIDINE HCL 150 MG TABLET (FP) PO SCH ×2 (10:13→22:07)
[2019-05-31] MEDS: LORATADINE 10 MG TABLET PO SCH (10:13)
[2019-05-31] MEDS: PRENATAL VITAMINS W/ FOLIC ACID TABLET (FP) PO SCH (10:13)
[2019-05-31] MEDS: ACETAMINOPHEN 325 MG TABLET (FP) PO PRN ×2 (10:15→22:12)
[2019-05-31] MEDS: NICOTINE 21 MG/24 HOURS TOPICAL PATCH TD SCH (10:18)
[2019-05-31] MEDS: SODIUM CHLORIDE NASAL SPRAY 44 ML BOTTLE NS PRN ×2 (10:18→22:06)
[2019-05-31] MEDS: hydrOXYzine HCL 25 MG TABLET (FP) PO PRN ×2 (11:17→22:10)
[2019-05-31] MEDS: guaiFENesin 200 MG/10 ML 10 ML UNIT-DOSE CUPS PO PRN (19:33)
[2019-05-31] MEDS: LATANOPROST 0.005% OPHTH SOLN 2.5ML BOTTLE OU SCH (22:07)
[2019-05-31] MEDS: THIAMINE HCL 100 MG TABLET (FP) PO SCH (22:07)
[2019-05-31] MEDS: traZODone HCL 100 MG TABLET (FP) PO SCH (22:11)
[2019-06-01] MEDS: TIMOLOL 0.5% OPHTHALMIC SOL 5 ML BOTTLE OU SCH ×2 (07:11→17:52)
[2019-06-01] MEDS ORDERED: PT OWN MED DRAWER 7, Y5N ONE (08:42)
[2019-06-01] MEDS: FERROUS SO4 325 MG TABLET (FP) PO SCH (10:09)
[2019-06-01] MEDS: RANITIDINE HCL 150 MG TABLET (FP) PO SCH ×2 (10:09→21:32)
[2019-06-01] MEDS: TAMSULOSIN HCL 0.4 MG CAP PO SCH (10:09)
[2019-06-01] MEDS: NICOTINE 21 MG/24 HOURS TOPICAL PATCH TD SCH (10:09)
[2019-06-01] MEDS: LORATADINE 10 MG TABLET PO SCH (10:09)
[2019-06-01] MEDS: PRENATAL VITAMINS W/ FOLIC ACID TABLET (FP) PO SCH (10:09)
[2019-06-01] MEDS: hydrOXYzine HCL 25 MG TABLET (FP) PO PRN (10:10)
[2019-06-01] MEDS: ACETAMINOPHEN 325 MG TABLET (FP) PO PRN ×2 (10:11→21:32)
[2019-06-01] MEDS: SODIUM CHLORIDE NASAL SPRAY 44 ML BOTTLE NS PRN ×2 (10:13→21:31)
[2019-06-01] MEDS: LATANOPROST 0.005% OPHTH SOLN 2.5ML BOTTLE OU SCH (21:32)
[2019-06-01] MEDS: THIAMINE HCL 100 MG TABLET (FP) PO SCH (21:32)
[2019-06-01] MEDS: guaiFENesin 200 MG/10 ML 10 ML UNIT-DOSE CUPS PO PRN (21:32)
[2019-06-01] MEDS: MELATONIN 5 MG TABLETS PO PRN (21:33)
[2019-06-01] MEDS: traZODone HCL 100 MG TABLET (FP) PO SCH (21:34)
[2019-06-02] MEDS: TIMOLOL 0.5% OPHTHALMIC SOL 5 ML BOTTLE OU SCH ×2 (07:17→17:00)
[2019-06-02] MEDS: TAMSULOSIN HCL 0.4 MG CAP PO SCH (12:11)
[2019-06-02] MEDS: LORATADINE 10 MG TABLET PO SCH (12:11)
[2019-06-02] MEDS: RANITIDINE HCL 150 MG TABLET (FP) PO SCH ×2 (12:11→21:29)
[2019-06-02] MEDS: NICOTINE 21 MG/24 HOURS TOPICAL PATCH TD SCH (12:12)
[2019-06-02] MEDS: PRENATAL VITAMINS W/ FOLIC ACID TABLET (FP) PO SCH (12:12)
[2019-06-02] MEDS: ACETAMINOPHEN 325 MG TABLET (FP) PO PRN ×2 (12:14→21:29)
[2019-06-02] MEDS: FERROUS SO4 325 MG TABLET (FP) PO SCH (13:53)
[2019-06-02] MEDS: hydrOXYzine HCL 25 MG TABLET (FP) PO PRN (13:53)
[2019-06-02] MEDS: P-EPHED 60MG/TRIPROLIDI 2.5MG TABLET PO PRN (13:55)
[2019-06-02] MEDS: guaiFENesin 200 MG/10 ML 10 ML UNIT-DOSE CUPS PO PRN ×2 (13:55→21:29)
[2019-06-02] MEDS: MENTHOL/PHENOL 1 EACH UD MM PRN (13:55)
[2019-06-02] MEDS: SODIUM CHLORIDE NASAL SPRAY 44 ML BOTTLE NS PRN (21:28)
[2019-06-02] MEDS: LATANOPROST 0.005% OPHTH SOLN 2.5ML BOTTLE OU SCH (21:28)
[2019-06-02] MEDS: MELATONIN 5 MG TABLETS PO PRN (21:29)
[2019-06-02] MEDS: traZODone HCL 100 MG TABLET (FP) PO SCH (21:30)
[2019-06-02] MEDS: THIAMINE HCL 100 MG TABLET (FP) PO SCH (21:30)
[2019-06-03] MEDS: TIMOLOL 0.5% OPHTHALMIC SOL 5 ML BOTTLE OU SCH ×2 (06:17→17:52)
[2019-06-03] MEDS: ACETAMINOPHEN 325 MG TABLET (FP) PO PRN (07:59)
--- NOTE | 2019-06-03 07:59 | PN ---
[facility] Progress Note Note: Patient was seen and examined in bed. He reports that he hit his head on the wall while trying to reach for his shoes. He denies fall at this time. A small bump noted on the right side of the head. Patient denies loss of consciousness, dizziness and reports minimal tolerable headache. Action:Vital Signs Temperature 97.2 F L 06/03/19 06:47 Pulse Rate 70 06/03/19 06:47 Respiratory Rate 18 06/03/19 06:47 Blood Pressure 136/83 06/03/19 06:47 O2 Sat by Pulse Oximetry (%) Action: Evaluate patient in ER Fall protocol initiated Tylenol 325mg 2 tablets oral daily Q6H as needed
[2019-06-03] MEDS: PRENATAL VITAMINS W/ FOLIC ACID TABLET (FP) PO SCH (10:12)
[2019-06-03] MEDS: NICOTINE 21 MG/24 HOURS TOPICAL PATCH TD SCH (10:12)
[2019-06-03] MEDS: RANITIDINE HCL 150 MG TABLET (FP) PO SCH ×2 (10:12→22:16)
[2019-06-03] MEDS: TAMSULOSIN HCL 0.4 MG CAP PO SCH (10:12)
[2019-06-03] MEDS: LORATADINE 10 MG TABLET PO SCH (10:12)
[2019-06-03] MEDS: hydrOXYzine HCL 25 MG TABLET (FP) PO PRN (10:12)
[2019-06-03] MEDS ORDERED: PT OWN MED DRAWER 7, Y5N ONE ×2 (10:14→14:23)
[2019-06-03] MEDS: FERROUS SO4 325 MG TABLET (FP) PO SCH (10:15)
[2019-06-03] MEDS: SODIUM CHLORIDE NASAL SPRAY 44 ML BOTTLE NS PRN (10:16)
--- NOTE | 2019-06-03 11:40 | PN ---
[facility] Progress Note Note: PATIENT WAS REFERRED TO ER BY REPLACER GABRIELA MACK THIS MORNING FOR EVALUATION AFTER HITTING HEAD ON WALL. PATIENT REFUSED TO GO TO ER AND REPORTS TO PROVIDER " I AM FINE!". PATIENT DENIES DIZZINESS, HEADACHE AND VISUAL CHANGES AT THIS TIME. Vital Signs Temperature 97.2 F L 06/03/19 06:47 Pulse Rate 70 06/03/19 06:47 Respiratory Rate 18 06/03/19 06:47 Blood Pressure 136/83 06/03/19 06:47 O2 Sat by Pulse Oximetry (%) Laboratory Tests 05/28/19 05/28/19 05/28/19 08:30 08:30 08:30 WBC 3.1 L RBC 3.73 L Hgb 11.0 L Hct 33.7 L MCV 90.5 MCH 29.4 MCHC 32.5 RDW 16.4 H Plt Count 206 D MPV 9.6 Sodium 140 Potassium 4.2 Chloride 104 Carbon Dioxide 32 Anion Gap 4 L BUN 12.4 Creatinine 0.9 Est GFR (CKD-EPI)AfAm 107.22 Est GFR (CKD-EPI)NonAf 92.51 Random Glucose 86 Calcium 8.7 Total Bilirubin 0.4 AST 21 ALT 20 Alkaline Phosphatase 83 Total Protein 6.4 Albumin 3.3 L Urine Color Urine Appearance Urine pH Ur Specific [place] Urine Protein Urine Glucose (UA) Urine Ketones Urine Blood Urine Nitrite Urine Bilirubin Urine Urobilinogen Ur Leukocyte Esterase RPR Titer Nonreactive 05/29/19 00:03 WBC RBC Hgb Hct MCV MCH MCHC RDW Plt Count MPV Sodium Potassium Chloride Carbon Dioxide Anion Gap BUN Creatinine Est GFR (CKD-EPI)AfAm Est GFR (CKD-EPI)NonAf Random Glucose Calcium Total Bilirubin AST ALT Alkaline Phosphatase Total Protein Albumin Urine Color Yellow Urine Appearance Clear Urine pH 6.5 Ur Specific [place] 1.007 L Urine Protein Negative Urine Glucose (UA) Negative Urine Ketones Negative Urine Blood Negative Urine Nitrite Negative Urine Bilirubin Negative Urine Urobilinogen 0.2 Ur Leukocyte Esterase Negative RPR Titer PE: ALERT AND ORIENTED X 3 HEAD NORMOCEPHALIC, SMALL BUMP TO RIGHT PARIETAL AREA SKIN WARM AND DRY + PERRLA, EOMS INTACT BL CN X1-X11 GROSSLY INTACT EXT AMB WITH CANE, FULL ROM A/P: S/P HITTING HEAD ON WALL PATIENT CONTINUES TO REFUSE ER EVALUATION DESPITE MEDICAL ADVISEMENT CONTINUE FALL PRECAUTIONS/NEURO CHECKS ORDERED MONITOR CLINICALLY
[2019-06-03] MEDS: guaiFENesin 200 MG/10 ML 10 ML UNIT-DOSE CUPS PO PRN (19:52)
[2019-06-03] MEDS: MAGNESIUM HYDROX 2400MG/30ML ORAL SUSPENSION 30 ML CUP PO PRN (20:41)
[2019-06-03] MEDS: MELATONIN 5 MG TABLETS PO PRN (22:16)
[2019-06-03] MEDS: LATANOPROST 0.005% OPHTH SOLN 2.5ML BOTTLE OU SCH (22:16)
[2019-06-03] MEDS: traZODone HCL 100 MG TABLET (FP) PO SCH (22:16)
[2019-06-03] MEDS: THIAMINE HCL 100 MG TABLET (FP) PO SCH (22:17)
[2019-06-04] MEDS: TIMOLOL 0.5% OPHTHALMIC SOL 5 ML BOTTLE OU SCH ×2 (06:27→16:43)
[2019-06-04] MEDS: RANITIDINE HCL 150 MG TABLET (FP) PO SCH ×2 (10:31→21:24)
[2019-06-04] MEDS: NICOTINE 21 MG/24 HOURS TOPICAL PATCH TD SCH (10:31)
[2019-06-04] MEDS: TAMSULOSIN HCL 0.4 MG CAP PO SCH (10:31)
[2019-06-04] MEDS: LORATADINE 10 MG TABLET PO SCH (10:31)
[2019-06-04] MEDS: PRENATAL VITAMINS W/ FOLIC ACID TABLET (FP) PO SCH (10:31)
[2019-06-04] MEDS: FERROUS SO4 325 MG TABLET (FP) PO SCH (10:31)
[2019-06-04] MEDS: SODIUM CHLORIDE NASAL SPRAY 44 ML BOTTLE NS PRN ×2 (10:33→21:27)
[2019-06-04] MEDS: MAGNESIUM HYDROX 2400MG/30ML ORAL SUSPENSION 30 ML CUP PO PRN (10:34)
[2019-06-04] MEDS: guaiFENesin 200 MG/10 ML 10 ML UNIT-DOSE CUPS PO PRN ×2 (10:38→21:25)
[2019-06-04] MEDS: THIAMINE HCL 100 MG TABLET (FP) PO SCH (21:23)
[2019-06-04] MEDS: LATANOPROST 0.005% OPHTH SOLN 2.5ML BOTTLE OU SCH (21:25)
[2019-06-04] MEDS: MELATONIN 5 MG TABLETS PO PRN (21:25)
[2019-06-04] MEDS: traZODone HCL 100 MG TABLET (FP) PO SCH (21:25)
[2019-06-04] MEDS: P-EPHED 60MG/TRIPROLIDI 2.5MG TABLET PO PRN (21:25)
[2019-06-04] MEDS: MENTHOL/PHENOL 1 EACH UD MM PRN (21:25)
[2019-06-04] MEDS: ACETAMINOPHEN 325 MG TABLET (FP) PO PRN (21:26)
[2019-06-05] MEDS: ACETAMINOPHEN 325 MG TABLET (FP) PO PRN ×3 (05:59→21:57)
[2019-06-05] MEDS: TIMOLOL 0.5% OPHTHALMIC SOL 5 ML BOTTLE OU SCH ×2 (06:00→18:32)
[2019-06-05] MEDS: PRENATAL VITAMINS W/ FOLIC ACID TABLET (FP) PO SCH (10:25)
[2019-06-05] MEDS: TAMSULOSIN HCL 0.4 MG CAP PO SCH (10:25)
[2019-06-05] MEDS: RANITIDINE HCL 150 MG TABLET (FP) PO SCH ×2 (10:26→21:58)
[2019-06-05] MEDS: LORATADINE 10 MG TABLET PO SCH (10:26)
[2019-06-05] MEDS: FERROUS SO4 325 MG TABLET (FP) PO SCH (10:26)
[2019-06-05] MEDS: NICOTINE 21 MG/24 HOURS TOPICAL PATCH TD SCH (10:26)
[2019-06-05] MEDS: hydrOXYzine HCL 25 MG TABLET (FP) PO PRN ×2 (10:27→21:58)
--- NOTE | 2019-06-05 13:16 | PN ---
[facility] Progress Note (SOAP) Subjective: patient requested that this provider see his "invention." Nurses reported that he was putting a chair on the bed and using it to elevate his legs. Objective: The "invention" consisted of placing a chair on the end of his bed with a pillow on the seat of the chair. Then the patient would lie in the bed an rest his feet and legs on the chair. 06/05/19 13:13 Assessment: Unsafe bedrest position. 06/05/19 13:14 Plan: Patient was advised that this "invention" was unsafe and could result in an accident that could cause physical injury to him. Patient advised and strongly encouraged not to place chair on bed and use it to rest his legs. Nurses are aware of patients actions and will monitor.
[2019-06-05] MEDS: CYCLOBENZAPRINE HCL 10 MG TABLET (FP) PO SCH ×2 (14:36→21:57)
[2019-06-05] MEDS: guaiFENesin 200 MG/10 ML 10 ML UNIT-DOSE CUPS PO PRN (21:56)
[2019-06-05] MEDS: MELATONIN 5 MG TABLETS PO PRN (21:57)
[2019-06-05] MEDS: THIAMINE HCL 100 MG TABLET (FP) PO SCH (21:57)
[2019-06-05] MEDS: LATANOPROST 0.005% OPHTH SOLN 2.5ML BOTTLE OU SCH (21:58)
[2019-06-05] MEDS: traZODone HCL 100 MG TABLET (FP) PO SCH (21:58)
[2019-06-05] MEDS: SODIUM CHLORIDE NASAL SPRAY 44 ML BOTTLE NS PRN (22:00)
[2019-06-06] MEDS: CYCLOBENZAPRINE HCL 10 MG TABLET (FP) PO SCH ×3 (06:52→21:43)
[2019-06-06] MEDS: TIMOLOL 0.5% OPHTHALMIC SOL 5 ML BOTTLE OU SCH ×2 (06:53→17:00)
[2019-06-06] MEDS: ACETAMINOPHEN 325 MG TABLET (FP) PO PRN ×2 (10:06→21:43)
[2019-06-06] MEDS: NICOTINE 21 MG/24 HOURS TOPICAL PATCH TD SCH (10:06)
[2019-06-06] MEDS: TAMSULOSIN HCL 0.4 MG CAP PO SCH (10:06)
[2019-06-06] MEDS: hydrOXYzine HCL 25 MG TABLET (FP) PO PRN ×2 (10:06→21:44)
[2019-06-06] MEDS: PRENATAL VITAMINS W/ FOLIC ACID TABLET (FP) PO SCH (10:07)
[2019-06-06] MEDS: LORATADINE 10 MG TABLET PO SCH (10:07)
[2019-06-06] MEDS: RANITIDINE HCL 150 MG TABLET (FP) PO SCH ×2 (10:07→21:44)
[2019-06-06] MEDS: FERROUS SO4 325 MG TABLET (FP) PO SCH (10:07)
[2019-06-06] MEDS: SODIUM CHLORIDE NASAL SPRAY 44 ML BOTTLE NS PRN (10:09)
[2019-06-06] MEDS: THIAMINE HCL 100 MG TABLET (FP) PO SCH (21:43)
[2019-06-06] MEDS: guaiFENesin 200 MG/10 ML 10 ML UNIT-DOSE CUPS PO PRN (21:43)
[2019-06-06] MEDS: MELATONIN 5 MG TABLETS PO PRN (21:44)
[2019-06-06] MEDS: traZODone HCL 100 MG TABLET (FP) PO SCH (21:44)
[2019-06-06] MEDS: LATANOPROST 0.005% OPHTH SOLN 2.5ML BOTTLE OU SCH (21:45)
[2019-06-07] MEDS: CYCLOBENZAPRINE HCL 10 MG TABLET (FP) PO SCH ×3 (06:43→22:07)
[2019-06-07] MEDS: TIMOLOL 0.5% OPHTHALMIC SOL 5 ML BOTTLE OU SCH ×2 (06:43→17:09)
[2019-06-07] MEDS: LORATADINE 10 MG TABLET PO SCH (10:39)
[2019-06-07] MEDS: NICOTINE 21 MG/24 HOURS TOPICAL PATCH TD SCH (10:39)
[2019-06-07] MEDS: RANITIDINE HCL 150 MG TABLET (FP) PO SCH ×2 (10:39→22:08)
[2019-06-07] MEDS: TAMSULOSIN HCL 0.4 MG CAP PO SCH (10:39)
[2019-06-07] MEDS: PRENATAL VITAMINS W/ FOLIC ACID TABLET (FP) PO SCH (10:39)
[2019-06-07] MEDS: ACETAMINOPHEN 325 MG TABLET (FP) PO PRN (10:40)
[2019-06-07] MEDS: FERROUS SO4 325 MG TABLET (FP) PO SCH (10:40)
--- NOTE | 2019-06-07 15:45 | PN ---
[facility] Progress Note (SOAP) Subjective: " My neck and head hurts and Tylenol is not helping me" Patient reports hx of cervical spinal fusion and pain relief with naprosyn. Objective: 06/07/19 15:41 Vital Signs Temperature 97.6 F 06/06/19 07:35 Pulse Rate 71 06/06/19 07:35 Respiratory Rate 18 06/07/19 06:00 Blood Pressure 131/77 06/06/19 07:35 O2 Sat by Pulse Oximetry (%) Laboratory Tests 05/28/19 05/28/19 05/28/19 08:30 08:30 08:30 WBC 3.1 L RBC 3.73 L Hgb 11.0 L Hct 33.7 L MCV 90.5 MCH 29.4 MCHC 32.5 RDW 16.4 H Plt Count 206 D MPV 9.6 Sodium 140 Potassium 4.2 Chloride 104 Carbon Dioxide 32 Anion Gap 4 L BUN 12.4 Creatinine 0.9 Est GFR (CKD-EPI)AfAm 107.22 Est GFR (CKD-EPI)NonAf 92.51 Random Glucose 86 Calcium 8.7 Total Bilirubin 0.4 AST 21 ALT 20 Alkaline Phosphatase 83 Total Protein 6.4 Albumin 3.3 L Urine Color Urine Appearance Urine pH Ur Specific [place] Urine Protein Urine Glucose (UA) Urine Ketones Urine Blood Urine Nitrite Urine Bilirubin Urine Urobilinogen Ur Leukocyte Esterase RPR Titer Nonreactive 05/29/19 00:03 WBC RBC Hgb Hct MCV MCH MCHC RDW Plt Count MPV Sodium Potassium Chloride Carbon Dioxide Anion Gap BUN Creatinine Est GFR (CKD-EPI)AfAm Est GFR (CKD-EPI)NonAf Random Glucose Calcium Total Bilirubin AST ALT Alkaline Phosphatase Total Protein Albumin Urine Color Yellow Urine Appearance Clear Urine pH 6.5 Ur Specific [place] 1.007 L Urine Protein Negative Urine Glucose (UA) Negative Urine Ketones Negative Urine Blood Negative Urine Nitrite Negative Urine Bilirubin Negative Urine Urobilinogen 0.2 Ur Leukocyte Esterase Negative RPR Titer PE: alert and oriented x 3 skin warm and dry head normocephalic, neck full rom, supple ext no visible tremors and/or swelling Assessment: 06/07/19 15:44 A/P: neck discomfort hx of cervical spinal fusion headache Plan: will d/c motrin start naprosyn 500mg po bid monitor clinically 06/07/19 15:44
[2019-06-07] MEDS: THIAMINE HCL 100 MG TABLET (FP) PO SCH (22:08)
[2019-06-07] MEDS: NAPROXEN 500 MG TABLET (FP) PO SCH (22:10)
[2019-06-07] MEDS: MELATONIN 5 MG TABLETS PO PRN (22:10)
[2019-06-07] MEDS: LATANOPROST 0.005% OPHTH SOLN 2.5ML BOTTLE OU SCH (22:11)
[2019-06-07] MEDS: hydrOXYzine HCL 25 MG TABLET (FP) PO PRN (22:11)
[2019-06-07] MEDS: traZODone HCL 100 MG TABLET (FP) PO SCH (22:12)
[2019-06-08] MEDS: CYCLOBENZAPRINE HCL 10 MG TABLET (FP) PO SCH ×3 (07:42→21:43)
[2019-06-08] MEDS: TIMOLOL 0.5% OPHTHALMIC SOL 5 ML BOTTLE OU SCH ×3 (07:42→18:00)
[2019-06-08] MEDS: TAMSULOSIN HCL 0.4 MG CAP PO SCH (10:13)
[2019-06-08] MEDS: NICOTINE 21 MG/24 HOURS TOPICAL PATCH TD SCH (10:13)
[2019-06-08] MEDS: RANITIDINE HCL 150 MG TABLET (FP) PO SCH ×2 (10:13→21:43)
[2019-06-08] MEDS: PRENATAL VITAMINS W/ FOLIC ACID TABLET (FP) PO SCH (10:13)
[2019-06-08] MEDS: NAPROXEN 500 MG TABLET (FP) PO SCH ×2 (10:13→21:43)
[2019-06-08] MEDS: LORATADINE 10 MG TABLET PO SCH (10:13)
[2019-06-08] MEDS: FERROUS SO4 325 MG TABLET (FP) PO SCH (10:13)
[2019-06-08] MEDS: guaiFENesin 200 MG/10 ML 10 ML UNIT-DOSE CUPS PO PRN ×2 (10:16→21:45)
[2019-06-08] MEDS: THIAMINE HCL 100 MG TABLET (FP) PO SCH (21:42)
[2019-06-08] MEDS: traZODone HCL 100 MG TABLET (FP) PO SCH (21:43)
[2019-06-08] MEDS: LATANOPROST 0.005% OPHTH SOLN 2.5ML BOTTLE OU SCH (21:43)
[2019-06-08] MEDS: hydrOXYzine HCL 25 MG TABLET (FP) PO PRN (21:44)
[2019-06-08] MEDS: MELATONIN 5 MG TABLETS PO PRN (21:45)
[2019-06-08] MEDS: SODIUM CHLORIDE NASAL SPRAY 44 ML BOTTLE NS PRN (21:47)
[2019-06-09] MEDS: TIMOLOL 0.5% OPHTHALMIC SOL 5 ML BOTTLE OU SCH ×2 (07:05→17:07)
[2019-06-09] MEDS: CYCLOBENZAPRINE HCL 10 MG TABLET (FP) PO SCH ×3 (07:45→21:56)
[2019-06-09] MEDS: FERROUS SO4 325 MG TABLET (FP) PO SCH (10:10)
[2019-06-09] MEDS: LORATADINE 10 MG TABLET PO SCH (10:10)
[2019-06-09] MEDS: TAMSULOSIN HCL 0.4 MG CAP PO SCH (10:10)
[2019-06-09] MEDS: PRENATAL VITAMINS W/ FOLIC ACID TABLET (FP) PO SCH (10:10)
[2019-06-09] MEDS: NAPROXEN 500 MG TABLET (FP) PO SCH ×2 (10:10→21:55)
[2019-06-09] MEDS: NICOTINE 21 MG/24 HOURS TOPICAL PATCH TD SCH (10:11)
[2019-06-09] MEDS: RANITIDINE HCL 150 MG TABLET (FP) PO SCH ×2 (10:11→21:56)
[2019-06-09] MEDS: guaiFENesin 200 MG/10 ML 10 ML UNIT-DOSE CUPS PO PRN ×2 (10:13→22:00)
[2019-06-09] MEDS: SODIUM CHLORIDE NASAL SPRAY 44 ML BOTTLE NS PRN ×2 (10:13→21:55)
[2019-06-09] MEDS ORDERED: PT OWN MED DRAWER 7, Y5N ONE (16:14)
[2019-06-09] MEDS: LATANOPROST 0.005% OPHTH SOLN 2.5ML BOTTLE OU SCH (21:54)
[2019-06-09] MEDS: THIAMINE HCL 100 MG TABLET (FP) PO SCH (21:55)
[2019-06-09] MEDS: traZODone HCL 100 MG TABLET (FP) PO SCH (21:56)
[2019-06-09] MEDS: MELATONIN 5 MG TABLETS PO PRN (21:57)
[2019-06-09] MEDS: hydrOXYzine HCL 25 MG TABLET (FP) PO PRN (22:00)
[2019-06-10] MEDS: CYCLOBENZAPRINE HCL 10 MG TABLET (FP) PO SCH ×3 (06:18→21:37)
[2019-06-10] MEDS: TIMOLOL 0.5% OPHTHALMIC SOL 5 ML BOTTLE OU SCH ×2 (06:19→18:16)
[2019-06-10 07:06] VITALS: BP 123/73; PULSE 57; TEMP 96.9
[2019-06-10] MEDS ORDERED: PT OWN MED DRAWER 7, Y5N ONE (09:12)
[2019-06-10] MEDS: PRENATAL VITAMINS W/ FOLIC ACID TABLET (FP) PO SCH (10:56)
[2019-06-10] MEDS: FERROUS SO4 325 MG TABLET (FP) PO SCH (10:56)
[2019-06-10] MEDS: RANITIDINE HCL 150 MG TABLET (FP) PO SCH ×2 (10:56→21:37)
[2019-06-10] MEDS: TAMSULOSIN HCL 0.4 MG CAP PO SCH (10:56)
[2019-06-10] MEDS: NICOTINE 21 MG/24 HOURS TOPICAL PATCH TD SCH (10:56)
[2019-06-10] MEDS: LORATADINE 10 MG TABLET PO SCH (10:56)
[2019-06-10] MEDS: NAPROXEN 500 MG TABLET (FP) PO SCH ×2 (10:57→21:37)
[2019-06-10] MEDS: SODIUM CHLORIDE NASAL SPRAY 44 ML BOTTLE NS PRN (11:34)
[2019-06-10] MEDS: hydrOXYzine HCL 25 MG TABLET (FP) PO PRN ×2 (11:37→21:38)
[2019-06-10] MEDS: COLLOIDAL OATMEAL 1 BAR EACH TP PRN (14:47)
[2019-06-10] MEDS: ACETAMINOPHEN 325 MG TABLET (FP) PO PRN (19:43)
[2019-06-10] MEDS: MENTHOL/PHENOL 1 EACH UD MM PRN (19:46)
[2019-06-10] MEDS: LATANOPROST 0.005% OPHTH SOLN 2.5ML BOTTLE OU SCH (21:36)
[2019-06-10] MEDS: THIAMINE HCL 100 MG TABLET (FP) PO SCH (21:37)
[2019-06-10] MEDS: traZODone HCL 100 MG TABLET (FP) PO SCH (21:37)
[2019-06-10] MEDS: MELATONIN 5 MG TABLETS PO PRN (21:38)
[2019-06-11] MEDS: CYCLOBENZAPRINE HCL 10 MG TABLET (FP) PO SCH (06:55)
[2019-06-11] MEDS: TIMOLOL 0.5% OPHTHALMIC SOL 5 ML BOTTLE OU SCH (07:33)
[2019-06-11] MEDS: RANITIDINE HCL 150 MG TABLET (FP) PO SCH (09:14)
[2019-06-11] MEDS: ACETAMINOPHEN 325 MG TABLET (FP) PO PRN (09:14)
[2019-06-11] MEDS: LORATADINE 10 MG TABLET PO SCH (09:14)
[2019-06-11] MEDS: FERROUS SO4 325 MG TABLET (FP) PO SCH (09:15)
[2019-06-11] MEDS: NAPROXEN 500 MG TABLET (FP) PO SCH (09:15)
[2019-06-11] MEDS: NICOTINE 21 MG/24 HOURS TOPICAL PATCH TD SCH (09:15)
[2019-06-11] MEDS: TAMSULOSIN HCL 0.4 MG CAP PO SCH (09:15)
[2019-06-11] MEDS: PRENATAL VITAMINS W/ FOLIC ACID TABLET (FP) PO SCH (09:15)
[2019-06-11] MEDS ORDERED: PT OWN MED DRAWER 7, Y5N ONE (09:18)
--- NOTE | 2019-06-11 09:25 | PN ---
[facility] Progress Note (SOAP) Subjective: Patient to be discharged today. HOSPITAL COURSE: Patient admitted to rehab on 05/28, discharged on 06/11. During his hospital course he attended groups, participated in community activities, and had individual counseling sessions with his counselor. He was adherent to his medication regimen. Objective: Examination: A+O x3, no neurological deficits noted, PERRLA, skin clear, heart sounds regular, lungs clear, abd soft, non-tender, non-distended, +BS, slow ambulation, uses cane for balance. 06/11/19 09:27 Assessment: Medically stable for discharge Discharge Dx: Glaucoma Cataracts ETOH dependence GERD 06/11/19 09:29 Plan: Coordination of on-going care: Patient will receive aftercare at [facility]. Has a regular medical provider but he does not remember the name. Advised patient to make an appointment with PCP within 2 weeks of discharge. Prescriptions transmitted to the patient's pharmacy.
== END 2019-06-11 09:25 | disposition home or self-care (01) | DRG 772 ==
LOC: YASAS 13:48 → Y3W 18:18
PROVIDERS: ADMIT Neuromusculoskeletal Medicine & OMM; ATTEND Neuromusculoskeletal Medicine & OMM
PROC: HZ42ZZZ Group Counseling for Substance Abuse Treatment, Cognitive-Behavioral (ICD-10-PCS; principal; 2019-05-28)
DX: F10.20 Alcohol dependence, uncomplicated (principal); F10.24 Alcohol dependence with alcohol-induced mood disorder; F17.210 Nicotine dependence, cigarettes, uncomplicated; F41.8 Other specified anxiety disorders; F25.9 Schizoaffective disorder, unspecified; F19.24 Other psychoactive substance dependence with psychoactive substance-induced mood disorder; I10 Essential (primary) hypertension; K21.9 Gastro-esophageal reflux disease without esophagitis; H40.9 Unspecified glaucoma; H26.9 Unspecified cataract; M54.2 Cervicalgia; G89.29 Other chronic pain; N40.0 Benign prostatic hyperplasia without lower urinary tract symptoms; L98.9 Disorder of the skin and subcutaneous tissue, unspecified; R26.2 Difficulty in walking, not elsewhere classified; R51 Headache; R22.0 Localized swelling, mass and lump, head; Z99.89 Dependence on other enabling machines and devices; Z86.69 Personal history of other diseases of the nervous system and sense organs; Z91.013 Allergy to seafood; Z98.1 Arthrodesis status; Z88.0 Allergy status to penicillin; W22.01XA Walked into wall, initial encounter; Y93.89 Activity, other specified; Y92.230 Patient room in hospital as the place of occurrence of the external cause
CPT/HCPCS: 36415; 80053; 81003; 85027; 86593

== ENCOUNTER 2019-06-28 11:50 | Inpatient (IN) | payer OTHER ==
[2019-06-28 14:34] VITALS: BMI 25.2
--- NOTE | 2019-06-28 18:56 | HP ---
CIWA Score Nausea/Vomitin Muscle Tremors: 4-Moderate,w/Arms Extend Anxiety: 4-Mod. Anxious/Guarded Agitation: 5 Paroxysmal Sweats: No Perspiration Orientation: 1-Uncertain about Date Tacttile Disturbances: 3-Moderate Itch/Numb/Burn Auditory Disturbances: 0-None Visual Disturbances: 0-None Headache: 3-Moderate CIWA-Ar Total Score: 23 - [facility]: Admission for Medically Managed Detox: Requires at least one of the followin. CIWA greater than 12 2. Seizures within the past 24 hours 3. Delirium tremens within the past 24 hours 4. Hallucinations within the past 24 hours 5. Acute intervention needed for co occurring medical disorder 6. Acute intervention needed for co occurring psychiatric disorder 7. Severe withdrawal that cannot be handled at a lower level of care (continued vomiting, continued diarrhea, abnormal vital signs) requiring intravenous medication and/or fluids 8. Patient presents the following: CIWA greater than 12 Admission Criteria Met: Admission criteria met Admission ROS [facility] Chief Complaint: c/o withdrawal sx's Allergies/Adverse Reactions: Allergies Allergy/AdvReac Type Severity Reaction Status Date / Time metoclopramide HCl Allergy Severe Swelling Verified 06/28/19 14:23 [From Reglan] Penicillins Allergy Severe Hives Verified 06/28/19 14:23 shellfish derived Allergy Severe Swelling Verified 06/28/19 14:23 orange juice AdvReac Mild Rash Verified 06/28/19 14:23 History of Present Illness: 58 y.o. male with extensive alcoholism here for detox. presents today with c/o withdrawal sx's. ciwa 23. client was dc from rehab 2 weeks ago after 2 week stay. states he immediately relapsed and has been drinking daily. states recent blackouts and seizures do to over drinking and at times not enough drinking to rid withdrawal sx's. 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 Exam Limitations: Physical Impairment - Ebola screening Have you traveled outside of the country in the last 21 days: No Have you had contact with anyone from an Ebola affected area: No Do you have a fever: No - Review of Systems Constitutional: Chills, Loss of Appetite, Malaise, Night Sweats, Changes in sleep EENT: reports: Cataracts (and glaucoma), Dental Problems (missing teeth) Respiratory: reports: No Symptoms reported Cardiac: reports: No Symptoms Reported GI: reports: Nausea, Poor Appetite, Poor Fluid Intake, Vomiting : reports: No Symptoms Reported Musculoskeletal: reports: Other (unsteady gait ambulates with cane) Integumentary: reports: No Symptoms Reported Neuro: reports: Headache, Tremors, Unsteady Gait (ambulates with cane) Endocrine: reports: No Symptoms Reported Hematology: reports: No Symptoms Reported Psychiatric: reports: Orientated x3, Agitated (irritable) Other Systems: Reviewed and Negative Patient History - Patient Medical History Hx Anemia: No Hx Asthma: No Hx Chronic Obstructive Pulmonary Disease (COPD): No Hx Cancer: No Hx Cardiac Disorders: No Hx Congestive Heart Failure: No Hx Hypertension: No Hx Hypercholesterolemia: No Hx Pacemaker: No HX Cerebrovascular Accident: No Hx Seizures: No (last 05/03/19) Hx Dementia: No Hx Diabetes: No Hx Gastrointestinal Disorders: Yes (gastric ulcers) Hx Liver Disease: No Hx Genitourinary Disorders: No Hx Sexually Transmitted Disorders: No Hx Renal Disease (ESRD): Yes (BPH) Hx Thyroid Disease: No Hx Human Immunodeficiency Virus (HIV): No (05/14 negative ) Hx Hepatitis C: No Hx Depression: Yes Hx Suicide Attempt: No (Denies suicidal ideation at this time) Hx Bipolar Disorder: No Hx Schizophrenia: No - Patient Surgical History Past Surgical History: Yes Hx Neurologic Surgery: Yes (C-SPINE FUSION IN 2016) Hx Cataract Extraction: No Hx Cardiac Surgery: No Hx Lung Surgery: No Hx Breast Surgery: No Hx Breast Biopsy: No Hx Abdominal Surgery: No Hx Appendectomy: No Hx Cholecystectomy: No Hx Genitourinary Surgery: No Hx Section: No Hx Orthopedic Surgery: Yes (Sx bilateral wrist and R ankle sx; ON THE NECK) Other Surgical History: HE FELL DOWN 4 DAYS AGO AND INJURED THE SCALP - STAPLED Anesthesia Reaction: No - PPD History Previous Implant?: Yes Documented Results: Negative w/proof Implanted On Prior R Admission?: No Date: 06/05/18 Results: 0 MM PPD to be Administered?: No - Smoking Cessation Smoking history: Current every day smoker Have you smoked in the past 12 months: No Aproximately how many cigarettes per day: 40 Cigars Per Day: 0 Hx Chewing Tobacco Use: No Initiated information on smoking cessation: Yes 'Breaking Loose' booklet given: 06/28/19 - Substance & Tx. History Hx Alcohol Use: Yes Hx Substance Use: Yes Substance Use Type: Alcohol Hx Substance Use Treatment: Yes ([facility]) - Substances abused Alcohol Substance route: Oral Frequency: Daily Amount used: 3 pints of vodka, 24 oz of beer Age of first use: 14 Date of last use: 06/28/19 Family Disease History - Family Disease History Family Disease History: Other: Father (alcohol,), Mother (alcohol), Brother (alcohol), Sister (alcohol) Admission Physical Exam [facility] - Vital Signs Vital Signs: Vital Signs - 24 hr 06/28/19 14:31 Temperature 96.6 F L Pulse Rate 80 Respiratory 18 Rate Blood Pressure 132/82 - Physical General Appearance: Yes: Mild Distress, Tremorous, Irritable, Anxious HEENTM: Yes: EOMI, Normocephalic, Normal Voice, MARISOL, Pharynx Normal, Other ( poor dentition) Respiratory: Yes: Chest Non-Tender, Lungs Clear, Normal Breath Sounds, No Respiratory Distress, No Accessory Muscle Use Neck: Yes: No masses,lesions,Nodules, Supple, Trachea in good position, Other ( sx scar limited rom) Breast: Yes: Breast Exam Deferred Cardiology: Yes: Regular Rhythm, Regular Rate, S1, S2 Abdominal: Yes: Normal Bowel Sounds, Non Tender, Soft Genitourinary: Yes: Within Normal Limits Back: Yes: Normal Inspection Musculoskeletal: Yes: Other (ambualtes with cane. limited rom due to pain) Extremities: Yes: Normal Capillary Refill, Non-Tender, Tremors 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: Yes: Fully Oriented, Alert, Motor Strength 5/5, Depressed Affect Integumentary: Yes: Dry, Warm Lymphatic: Yes: Within Normal Limits - Diagnostic (1) Alcohol-induced mood disorder Current Visit: Yes Status: Suspected (2) Alcohol dependence with uncomplicated withdrawal Current Visit: Yes Status: Acute (3) Arthritis Current Visit: Yes Status: Chronic (4) Asthma Current Visit: Yes Status: Chronic Qualifiers: Asthma severity: mild Asthma persistence: intermittent Asthma complication type: with status asthmaticus Qualified Code(s): J45.22 - Mild intermittent asthma with status asthmaticus (5) BPH (benign prostatic hypertrophy) Current Visit: Yes Status: Chronic Qualifiers: Lower urinary tract symptom presence: symptoms absent Qualified Code(s): N40.0 - Benign prostatic hyperplasia without lower urinary tract symptoms Comment: Has not seen a provider since initiation of flomax (6) Cataract Current Visit: Yes Status: Chronic Qualifiers: Cataract type: age-related (7) Chronic low back pain Current Visit: Yes Status: Chronic Qualifiers: Back pain laterality: unspecified Sciatica presence: unspecified whether sciatica present Qualified Code(s): M54.5 - Low back pain; G89.29 - Other chronic pain (8) Chronic neck pain Current Visit: Yes Status: Chronic (9) Gastric ulcer Current Visit: Yes Status: Chronic Qualifiers: Gastric ulcer chronicity: chronic (10) Gastroesophageal reflux disease Current Visit: Yes Status: Chronic (11) Glaucoma of both eyes Current Visit: Yes Status: Chronic Qualifiers: Glaucoma type: primary angle-closure Primary angle closure glaucoma type: chronic Glaucoma stage: mild stage Qualified Code(s): H40.2231 - Chronic angle-closure glaucoma, bilateral, mild stage Comment: Last eye exam September 2018 (12) Nicotine dependence Current Visit: Yes Status: Chronic Qualifiers: Nicotine product type: cigarettes Substance use status: uncomplicated Qualified Code(s): F17.210 - Nicotine dependence, cigarettes, uncomplicated (13) Non-compliance with treatment Current Visit: Yes Status: Suspected (14) Substance induced mood disorder Current Visit: Yes Status: Suspected (15) Use of cane as ambulatory aid Current Visit: Yes Status: Chronic (16) Alcohol related seizure Current Visit: Yes Status: Resolved Comment: reported last episode 2 days ago Cleared for Admission S - Detox or Rehab [facility] Level of Care: Medically Managed Detox Regimen/Protocol: Librium Claeared for Rehab Admission: No Breathalyzer - Breathalyzer Breathalyzer: 0.086 Urine Drug Screen - Test Device Lot number: [id number] Expiration date: 03/26/21 - Control Is test valid?: Yes - Results Drug screen NEGATIVE: No Urine drug screen results: BZO-Benzodiazepines Inpatient Rehab Admission - Rehab Decision to Admit Inpatient rehab admission?: No
[2019-06-28] MEDS ORDERED: BISMUTH SUBSALICYLATE 524 MG/30 ML UD PO PRN (19:02)
[2019-06-28] MEDS ORDERED: MAG HYDROX/AL HYDROX/SIMETH 30 ML UNIT-DOSE CUP PO PRN (19:02)
[2019-06-28] MEDS ORDERED: hydrOXYzine PAMOATE 25 MG CAPSULE (FP) PO PRN (19:02)
[2019-06-28] MEDS ORDERED: DICYCLOMINE HCL 10 MG CAPSULE PO PRN (19:02)
[2019-06-28] MEDS ORDERED: guaiFENesin 200 MG/10 ML 10 ML UNIT-DOSE CUPS PO PRN (19:02)
[2019-06-28] MEDS ORDERED: NICOTINE POLACRILEX 2 MG GUM BUC PRN (19:02)
[2019-06-28] MEDS ORDERED: ACETAMINOPHEN 325 MG TABLET (FP) PO PRN ×2 (19:02)
[2019-06-28] MEDS ORDERED: MENTHOL/PHENOL 1 EACH UD MM PRN (19:02)
[2019-06-28] MEDS ORDERED: ONDANSETRON *ODT* 4 MG TABLET SL PRN (19:02)
[2019-06-28] MEDS ORDERED: chlordiazePOXIDE HCL 25 MG CAPSULE PO PRN (19:02)
[2019-06-28] MEDS ORDERED: P-EPHED 60MG/TRIPROLIDI 2.5MG TABLET PO PRN (19:02)
[2019-06-28] MEDS ORDERED: MAGNESIUM CITRATE 300 ML BOTTLE PO PRN (19:02)
[2019-06-28] MEDS ORDERED: METHOCARBAMOL 500 MG TABLET PO PRN (19:02)
[2019-06-28] MEDS ORDERED: IBUPROFEN 400 MG TABLET (FP) PO PRN (19:02)
[2019-06-28] MEDS ORDERED: MAGNESIUM HYDROX 2400MG/30ML ORAL SUSPENSION 30 ML CUP PO PRN (19:02)
[2019-06-28] MEDS ORDERED: ALBUTEROL SO4 8 GM HFA INHALER IH PRN (19:07)
[2019-06-28] MEDS: RANITIDINE HCL 150 MG TABLET (FP) PO SCH (22:24)
[2019-06-28] MEDS: THIAMINE HCL 100 MG TABLET (FP) PO SCH (22:24)
[2019-06-28] MEDS: chlordiazePOXIDE HCL 25 MG CAPSULE PO SCH (22:24)
[2019-06-28] MEDS: MELATONIN 5 MG TABLETS PO PRN (22:25)
[2019-06-28] MEDS: LATANOPROST 0.005% OPHTH SOLN 2.5ML BOTTLE OU SCH (22:26)
[2019-06-28] MEDS: TIMOLOL 0.5% OPHTHALMIC SOL 5 ML BOTTLE OU SCH (22:27)
[2019-06-29] MEDS: chlordiazePOXIDE HCL 25 MG CAPSULE PO SCH ×4 (06:27→22:51)
[2019-06-29] MEDS: PANTOPRAZOLE 20 MG TABLET (FP) PO SCH (06:28)
[2019-06-29] MEDS ORDERED: TAMSULOSIN HCL 0.4 MG CAP PO SCH (10:00)
[2019-06-29] MEDS: LORATADINE 10 MG TABLET PO SCH (11:09)
[2019-06-29] MEDS: TIMOLOL 0.5% OPHTHALMIC SOL 5 ML BOTTLE OU SCH ×2 (11:10→22:59)
[2019-06-29] MEDS: NICOTINE 21 MG/24 HOURS TOPICAL PATCH TD SCH (11:10)
[2019-06-29] MEDS: PRENATAL VITAMINS W/ FOLIC ACID TABLET (FP) PO SCH (11:10)
[2019-06-29] MEDS: RANITIDINE HCL 150 MG TABLET (FP) PO SCH ×2 (11:10→22:51)
--- NOTE | 2019-06-29 12:47 | CONSULT ---
[facility] Psychiatric Consult - Data Date of interview: 06/29/19 Admission source: [facility] Identifying data: This is one of multiple admissions to [facility] for this 58 y/ o AA male, self-referred for detoxification (alcohol). Seen at [address] [place] [address]. Patient is single, no children, homeless, disabled (ambulates with a cane), unemployed and supported on SSI benefits. Substance Abuse History: Confirmed by patient in this interview. Details in current [facility] report as follows : Smoking history: Current every day smoker. Have you smoked in the past 12 months: No. Aproximately how many cigarettes per day: 40. Cigars Per Day: 0. Hx Chewing Tobacco Use: No. Initiated information on smoking cessation: Yes. 'Breaking Loose' booklet given: . - Substance & Tx. History. Hx Alcohol Use: Yes. Hx Substance Use: Yes. Substance Use Type: Alcohol. Hx [facility] - Substances abused. Alcohol. Substance route: Oral. Frequency: Daily. Amount used: 3 pints of vodka, 24 oz of beer. Age of first use: 14. Date of last use: 06/28/19 Medical History: Remarkable for GERD, arthritis, glaucoma, cataracts (bilateral) , withdrawal seizures, peptic ulcer disease, cyst of left wrist, cervical fusion (consequence of injuries sustained in a fall while riding an escalator 3- 4 years ago), BPH (benign prostatic hyperplasia), past history of orthosurgery for fracture of right ankle (hardware in situ) and surgery for laceration of right wrist (glass). History of frequent falls. Patient uses a cane for ambulation. Psychiatric History: History of multiple psychiatric hospitalizations ([facility], [facility], [facility], [facility] in [place]). Diagnosed with Schizoaffective Disorder. Chronically non- adherent to psychiatric OPD care. Mr Clementina declares that he does not see psychiatrists or take psychotropic medications with the exception of hydroxyzine (anxiety) and trazodone for insomnia. Patient denies history of suicide attempts. Physical/Sexual Abuse/Trauma History: Patient denies history of abuse. Additional Comment: Urine drug screen results: BZO-Benzodiazepines. Noted. Mental Status Exam - Mental Status Exam Alert and Oriented to: Time, Place, Person Cognitive Function: Grossly Intact Patient Appearance: Unkempt, Disheveled Mood: Angry, Hostile, Withdrawn, Irritable Affect: Mood Congruent, Constricted Patient Behavior: Fatigued, Guarded Speech Pattern: Clear Voice Loudness: Mildly Loud Thought Process: Goal Oriented Thought Disorder: Not Present Hallucinations: Denies Suicidal Ideation: Denies Homicidal Ideation: Denies Insight/Judgement: Poor Sleep: Poorly, Difficulty falling asleep Appetite: Good Gait/Station: Other (needs cane for ambulation) Psychiatric Findings - Problem List (Welsh 1, 2,3) (1) Alcohol dependence with uncomplicated withdrawal Current Visit: Yes Status: Acute (2) Nicotine dependence Current Visit: Yes Status: Chronic Qualifiers: Nicotine product type: cigarettes Substance use status: uncomplicated Qualified Code(s): F17.210 - Nicotine dependence, cigarettes, uncomplicated (3) Alcohol-induced mood disorder Current Visit: Yes Status: Chronic (4) History of schizoaffective disorder Current Visit: Yes Status: Chronic (5) Insomnia Current Visit: Yes Status: Chronic (6) Non-compliance with treatment Current Visit: Yes Status: Chronic - Initial Treatment Plan Initial Treatment Plan: Records ([facility]) are revisited. Sleep hygiene. Detoxification. Trazodone 50 mg po hs. Patient is made aware of the potential for priapism. Gave verbal consent for treatment. AA meetings. Observation.
--- NOTE | 2019-06-29 13:13 | PN ---
S CIWA - CIWA Score Nausea/Vomitin-No Nausea/No Vomiting Muscle Tremors: 3 Anxiety: 4-Mod. Anxious/Guarded Agitation: 0-Normal Activity Paroxysmal Sweats: 2 Orientation: 2-Disoriented Date<2 days Tacttile Disturbances: 0-None Auditory Disturbances: 0-None Visual Disturbances: 2-Mild Sensitivity Headache: 2-Mild CIWA-Ar Total Score: 15 [facility] Progress Note (SOAP) Subjective: Anxious, Sweating, Tremors, Fatigue, H/A. Objective: PATIENT A & O X 2 (UNCERTAIN ABOUT CURRENT DAY / DATE). IN NO ACUTE DISTRESS. 06/29/19 13:14 Vital Signs Temperature 97.0 F L 06/29/19 09:34 Pulse Rate 73 06/29/19 09:34 Respiratory Rate 18 06/29/19 09:34 Blood Pressure 119/75 06/29/19 09:34 O2 Sat by Pulse Oximetry (%) RESULTS OF DETOX ADMISSION LABS FROM NOTED. 06/29/19 13:15 Assessment: 06/29/19 13:16 WITHDRAWAL SYMPTOMS. Plan: CONTINUE DETOX.
[2019-06-29] MEDS: THIAMINE HCL 100 MG TABLET (FP) PO SCH (22:51)
[2019-06-29] MEDS: MELATONIN 5 MG TABLETS PO PRN (22:51)
[2019-06-29] MEDS: LATANOPROST 0.005% OPHTH SOLN 2.5ML BOTTLE OU SCH (22:51)
[2019-06-29] MEDS: traZODone HCL 50 MG TABLET (FP) PO SCH (22:51)
[2019-06-30] MEDS: chlordiazePOXIDE HCL 25 MG CAPSULE PO SCH ×3 (06:19→16:37)
[2019-06-30] MEDS: PANTOPRAZOLE 20 MG TABLET (FP) PO SCH (07:12)
[2019-06-30] MEDS ORDERED: NAPROXEN 250 MG TABLET (FP) PO SCH (10:00)
[2019-06-30] MEDS: PRENATAL VITAMINS W/ FOLIC ACID TABLET (FP) PO SCH (10:44)
[2019-06-30] MEDS: LORATADINE 10 MG TABLET PO SCH (10:45)
[2019-06-30] MEDS: RANITIDINE HCL 150 MG TABLET (FP) PO SCH ×2 (10:45→21:32)
[2019-06-30] MEDS: TIMOLOL 0.5% OPHTHALMIC SOL 5 ML BOTTLE OU SCH ×2 (10:46→16:38)
[2019-06-30] MEDS: NAPROXEN 500 MG TABLET (FP) PO SCH ×2 (10:47→21:32)
[2019-06-30] MEDS: NICOTINE 21 MG/24 HOURS TOPICAL PATCH TD SCH (10:48)
--- NOTE | 2019-06-30 11:26 | PN ---
[facility] CIWA - CIWA Score Nausea/Vomitin-Mild Nausea/No Vomiting Muscle Tremors: 2 Anxiety: 3 Agitation: 3 Paroxysmal Sweats: 1-Minimal Palms Moist Orientation: 1-Uncertain about Date Tacttile Disturbances: 0-None Auditory Disturbances: 0-None Visual Disturbances: 0-None Headache: 0-None Present CIWA-Ar Total Score: 11 S Progress Note (SOAP) Subjective: 58 years old male admitted on 06/28/19 for alcohol withdrawal sx management requests glaucoma eye drop to be given at 10 am and 5 pm ambulating on hallway with cane Objective: 06/30/19 11:25 Vital Signs Temperature 97.7 F 06/30/19 09:26 Pulse Rate 68 06/30/19 09:26 Respiratory Rate 18 06/30/19 09:26 Blood Pressure 122/70 06/30/19 09:26 O2 Sat by Pulse Oximetry (%) 06/30/19 11:27 lab see 04/2019 patient is 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
[2019-06-30] MEDS: TAMSULOSIN HCL 0.4 MG CAP PO SCH (13:24)
[2019-06-30] MEDS ORDERED: LOPERAMIDE HCL 2 MG CAPSULE PO PRN (17:03)
[2019-06-30] MEDS: THIAMINE HCL 100 MG TABLET (FP) PO SCH (21:31)
[2019-06-30] MEDS: diphenhydrAMINE HCL 25 MG CAPSULE (FP) PO PRN (21:32)
[2019-06-30] MEDS: traZODone HCL 50 MG TABLET (FP) PO SCH (21:32)
[2019-06-30] MEDS: LATANOPROST 0.005% OPHTH SOLN 2.5ML BOTTLE OU SCH (21:33)
[2019-06-30] MEDS ORDERED: COLLOIDAL OATMEAL 1 BAR EACH TP PRN (21:53)
[2019-06-30] MEDS ORDERED: chlordiazePOXIDE 5 MG CAPSULE PO SCH (23:00)
[2019-07-01] MEDS ORDERED: chlordiazePOXIDE HCL 10 MG CAPSULE PO PRN
[2019-07-01] MEDS: chlordiazePOXIDE HCL 10 MG CAPSULE PO SCH ×4 (04:16→22:20)
[2019-07-01] MEDS: PRENATAL VITAMINS W/ FOLIC ACID TABLET (FP) PO SCH (10:17)
[2019-07-01] MEDS: NAPROXEN 500 MG TABLET (FP) PO SCH ×2 (10:17→21:29)
[2019-07-01] MEDS: LORATADINE 10 MG TABLET PO SCH (10:17)
[2019-07-01] MEDS: RANITIDINE HCL 150 MG TABLET (FP) PO SCH ×2 (10:17→21:30)
[2019-07-01] MEDS: TIMOLOL 0.5% OPHTHALMIC SOL 5 ML BOTTLE OU SCH ×2 (10:18→18:32)
[2019-07-01] MEDS: NICOTINE 21 MG/24 HOURS TOPICAL PATCH TD SCH (10:19)
--- NOTE | 2019-07-01 13:10 | PN ---
S CIWA - CIWA Score Nausea/Vomitin-No Nausea/No Vomiting Muscle Tremors: 2 Anxiety: 4-Mod. Anxious/Guarded Agitation: 4-Moderately Restless Paroxysmal Sweats: No Perspiration Orientation: 0-Oriented Tacttile Disturbances: 0-None Auditory Disturbances: 0-None Visual Disturbances: 1-Very Mild Sensitivity Headache: 0-None Present CIWA-Ar Total Score: 11 S Progress Note (SOAP) Subjective: Anxious, Agitated, Tremors, Fatigue. Objective: PATIENT A & O X 3, OBSERVED AMBULATING ON UNIT UNASSISTED. IN NO ACUTE DISTRESS. 07/01/19 13:07 Vital Signs Temperature 97.7 F 07/01/19 09:32 Pulse Rate 80 07/01/19 09:32 Respiratory Rate 18 07/01/19 09:32 Blood Pressure 112/72 07/01/19 09:32 O2 Sat by Pulse Oximetry (%) RESULTS OF LABS FROM ADMISSION ON 05/28/2019 NOTED. 07/01/19 13:09 Assessment: 07/01/19 13:10 WITHDRAWAL SYMPTOMS. Plan: CONTINUE DETOX.
[2019-07-01] MEDS: TAMSULOSIN HCL 0.4 MG CAP PO SCH (15:42)
[2019-07-01] MEDS: THIAMINE HCL 100 MG TABLET (FP) PO SCH (21:29)
[2019-07-01] MEDS: traZODone HCL 50 MG TABLET (FP) PO SCH (21:30)
[2019-07-01] MEDS: LATANOPROST 0.005% OPHTH SOLN 2.5ML BOTTLE OU SCH (21:30)
[2019-07-01] MEDS: diphenhydrAMINE HCL 25 MG CAPSULE (FP) PO PRN (21:36)
[2019-07-02] MEDS: chlordiazePOXIDE HCL 10 MG CAPSULE PO SCH ×2 (06:14→16:57)
[2019-07-02] MEDS: LORATADINE 10 MG TABLET PO SCH (10:39)
[2019-07-02] MEDS: RANITIDINE HCL 150 MG TABLET (FP) PO SCH ×2 (10:39→21:32)
[2019-07-02] MEDS: NAPROXEN 500 MG TABLET (FP) PO SCH ×2 (10:39→21:32)
[2019-07-02] MEDS: PRENATAL VITAMINS W/ FOLIC ACID TABLET (FP) PO SCH (10:39)
[2019-07-02] MEDS: TIMOLOL 0.5% OPHTHALMIC SOL 5 ML BOTTLE OU SCH ×2 (10:39→16:57)
[2019-07-02] MEDS: NICOTINE 21 MG/24 HOURS TOPICAL PATCH TD SCH (10:41)
[2019-07-02] MEDS: TAMSULOSIN HCL 0.4 MG CAP PO SCH (14:44)
[2019-07-02] MEDS: diphenhydrAMINE HCL 25 MG CAPSULE (FP) PO PRN (21:32)
[2019-07-02] MEDS: LATANOPROST 0.005% OPHTH SOLN 2.5ML BOTTLE OU SCH (21:32)
[2019-07-02] MEDS: THIAMINE HCL 100 MG TABLET (FP) PO SCH (21:32)
[2019-07-02] MEDS: traZODone HCL 50 MG TABLET (FP) PO SCH (21:32)
[2019-07-03] MEDS ORDERED: chlordiazePOXIDE HCL 10 MG CAPSULE PO ONE (05:00)
[2019-07-03 06:59] VITALS: BP 115/65; PULSE 80; TEMP 98.4
--- NOTE | 2019-07-03 16:16 | PN ---
[facility] CIWA - CIWA Score Nausea/Vomitin-Mild Nausea/No Vomiting Muscle Tremors: 2 Anxiety: 2 Agitation: 2 Paroxysmal Sweats: No Perspiration Orientation: 0-Oriented Tacttile Disturbances: 0-None Auditory Disturbances: 0-None Visual Disturbances: 0-None Headache: 0-None Present CIWA-Ar Total Score: 7 BHS Progress Note (SOAP) Subjective: ambulating with cane on hallway social with peers in day room discuss aftercare with staff that the patient prefers return to eye doctor for glaucoma and cataract treatment Objective: 07/02/19 16:18 Vital Signs Temperature 98.4 F 07/03/19 06:58 Pulse Rate 80 07/03/19 06:58 Respiratory Rate 16 07/03/19 06:58 Blood Pressure 115/65 07/03/19 06:58 O2 Sat by Pulse Oximetry (%) 07/03/19 16:19 see lab 04/2019 within acceptable range no new lab needed 07/02/19 16:20 Assessment: 07/02/19 16:20 alcohol withdrawal sx Plan: continue alcohol detox
--- NOTE | 2019-07-03 16:22 | DS ---
[facility] Detox Discharge Summary Admission Date: 06/28/19 Discharge Date: 07/03/19 - History Present History: Alcohol Dependence Additional Comments: 58 years old male admitted on 06/28/19 for alcohol withdrawal sx doing well with libirum detox regimen no complication throughout the detox stay alert oriented x 3 no shortness of breathe ambulating with cane steady gait Pertinent Past History: patient prefers to return to his eye doctor for aftercare that he is having glaucoma and cataract "surgery" after detox from alcohol encourage the patient bring in medication list and lab report 04/2019 to eye doctor for follow up - Physical Exam Results Vital Signs: Vital Signs Temperature 98.4 F 07/03/19 06:58 Pulse Rate 80 07/03/19 06:58 Respiratory Rate 16 07/03/19 06:58 Blood Pressure 115/65 07/03/19 06:58 O2 Sat by Pulse Oximetry (%) Pertinent Admission Physical Exam Findings: alcohol withdrawal sx lab see 04/2019 - Treatment Hospital Course: Detox Protocol Followed, Detoxed Safely, Responded well, Discharged Condition Good, Rehab Referral Accepted Patient has Accepted a Rehab Referral to: Counseling Services - Medication Discharge Medications: Ambulatory Orders traZODone HCL [Desyrel -] 100 mg PO HS #30 tablet 10/31/18 Flunisolide 0.025 spray PO BID 05/04/19 Baclofen 10 mg PO TID #30 tablet 06/11/19 Famotidine 20 mg PO BID #20 tablet 06/11/19 Folic Acid 1 mg PO DAILY #14 tablet 06/11/19 Loratadine 10 mg PO DAILY #14 tablet 06/11/19 Naloxone HCl [Narcan] 4 mg NS PRN PRN #14 spray 06/11/19 Thiamine HCl [Vitamin B-1] 100 mg PO DAILY #14 tablet 06/11/19 Ranitidine HCl [Zantac] 150 mg PO BID 06/28/19 Albuterol Sulfate Inhaler - [Ventolin HFA Inhaler -] 2 inh PO Q4H PRN #1 inhaler 07/02/19 Latanoprost 0.005% Eye Drops [Xalatan 0.005% Eye Drops -] 1 drop OU HS #1 bottle 07/02/19 Tamsulosin HCl [Flomax -] 0.4 mg PO DAILY #30 cap.er.24h 07/02/19 Timolol 0.5% [Timoptic 0.5%] 1 drop OU BID #1 drops 07/02/19 - Diagnosis (1) Alcohol dependence with uncomplicated withdrawal Status: Acute (2) Arthritis Status: Chronic (3) Asthma Status: Chronic Qualifiers: Asthma severity: mild Asthma persistence: intermittent Asthma complication type: with status asthmaticus Qualified Code(s): J45.22 - Mild intermittent asthma with status asthmaticus (4) BPH (benign prostatic hypertrophy) Status: Chronic Qualifiers: Lower urinary tract symptom presence: symptoms absent Qualified Code(s): N40.0 - Benign prostatic hyperplasia without lower urinary tract symptoms (5) Cataract Status: Chronic Qualifiers: Cataract type: age-related (6) Chronic low back pain Status: Chronic Qualifiers: Back pain laterality: unspecified Sciatica presence: unspecified whether sciatica present Qualified Code(s): M54.5 - Low back pain; G89.29 - Other chronic pain (7) Gastroesophageal reflux disease Status: Chronic (8) Glaucoma Status: Chronic Qualifiers: Glaucoma type: unspecified Laterality: unspecified laterality Qualified Code(s): H40.9 - Unspecified glaucoma (9) Nicotine dependence Status: Acute Qualifiers: Nicotine product type: cigarettes Substance use status: in withdrawal Qualified Code(s): F17.213 - Nicotine dependence, cigarettes, with withdrawal (10) Substance induced mood disorder Status: Suspected - AMA Did Patient Leave Against Medical Advice: No
== END 2019-07-03 08:40 | disposition home or self-care (01) | DRG 775 ==
LOC: YASAS 11:50 → Y3N 19:13
PROVIDERS: ADMIT Surgery; ATTEND Surgery
PROC: HZ2ZZZZ Detoxification Services for Substance Abuse Treatment (ICD-10-PCS; principal; 2019-06-28)
DX: F10.230 Alcohol dependence with withdrawal, uncomplicated (principal); F17.210 Nicotine dependence, cigarettes, uncomplicated; F10.24 Alcohol dependence with alcohol-induced mood disorder; F19.24 Other psychoactive substance dependence with psychoactive substance-induced mood disorder; F25.9 Schizoaffective disorder, unspecified; J45.22 Mild intermittent asthma with status asthmaticus; G40.509 Epileptic seizures related to external causes, not intractable, without status epilepticus; M54.5 Low back pain; M54.2 Cervicalgia; G89.29 Other chronic pain; M12.9 Arthropathy, unspecified; N40.0 Benign prostatic hyperplasia without lower urinary tract symptoms; G47.00 Insomnia, unspecified; K21.9 Gastro-esophageal reflux disease without esophagitis; K25.9 Gastric ulcer, unspecified as acute or chronic, without hemorrhage or perforation; H40.2231 Chronic angle-closure glaucoma, bilateral, mild stage; H25.9 Unspecified age-related cataract; R26.2 Difficulty in walking, not elsewhere classified; Z99.89 Dependence on other enabling machines and devices; Z88.0 Allergy status to penicillin; Z91.013 Allergy to seafood; Z91.19 Patient's noncompliance with other medical treatment and regimen
CPT/HCPCS: Q0162

== ENCOUNTER 2019-08-02 03:45 | Emergency (ER) | payer OTHER ==
[2019-08-02 04:01] VITALS: BMI 22.8
[2019-08-02 04:36] VITALS: BP 109/64; PULSE 96; TEMP 98
--- NOTE | 2019-08-02 05:25 | PDOC ---
Attending Attestation - Resident Resident Name: Willy Alaniz - ED Attending Attestation I have performed the following: I have examined & evaluated the patient, The case was reviewed & discussed with the resident, I agree w/resident's findings & plan, Exceptions are as noted - HPI HPI: 08/02/19 07:28 58M pmh Asthma, etoh abuse disorder sent from [facility] 2/2 acute intox. Last drink approximately 24 hours prior to interview. Endorses nause, 1 episode of nbnb vomiting. Does not know if he's ever had seizures, required admission, icu , intubation. - Physicial Exam PE: 08/02/19 07:30 Drowsy but rousable, NAD +tongue fasiculation +asterixes agree with detailed exam as documented by resident - Medical Decision Making 08/02/19 07:32 Etoh withdrawal librium f/u labs ivf if symptomatically improved, labs wnl, can dc for consideration at [facility]
[2019-08-02] MEDS ORDERED: chlordiazePOXIDE HCL 25 MG CAPSULE PO ONE (06:44)
[2019-08-02] MEDS ORDERED: FAMOTIDINE 20 MG/50 ML IVPB 20 MG/50 ML MG IVPB ONE ×2 (06:44→07:19)
[2019-08-02] MEDS ORDERED: SODIUM CHLORIDE 0.9% 500 ML INFUS.BAG IV ONE (06:45)
--- NOTE | 2019-08-02 06:51 | PDOC ---
History of Present Illness - General Chief Complaint: Alcohol intoxication Stated Complaint: INTOX Time Seen by Provider: 08/02/19 04:52 History Source: Patient Exam Limitations: No Limitations - History of Present Illness Initial Comments: 08/02/19 06:45 Anderson Mcrae is a 58M presenting from [facility] with alcohol intoxication and withdrawal. Patient reports drinking an unspecified amount of vodka yesterday, but no other types of alcohol or drugs, was going to [facility] to get detox. Says he is having withdrawals at the moment, has shaky hands with some sweating. Went to the restroom in the ED and was having nausea with one episode of mucous vomiting and 3 episodes of NBNB loose stools. Has tried detox in the past, has a history of withdrawal tremors, unsure if he has had seizures in the past. Past History - Past Medical History Allergies/Adverse Reactions: Allergies Allergy/AdvReac Type Severity Reaction Status Date / Time metoclopramide HCl Allergy Severe Swelling Verified 08/02/19 03:59 [From [facility]] Penicillins Allergy Severe Hives Verified 08/02/19 03:59 shellfish derived Allergy Severe Swelling Verified 08/02/19 03:59 orange juice AdvReac Mild Rash Verified 08/02/19 03:59 Home Medications: Ambulatory Orders traZODone HCL [Desyrel -] 100 mg PO HS #30 tablet 10/31/18 Flunisolide 0.025 spray PO BID 05/04/19 Baclofen 10 mg PO TID #30 tablet 06/11/19 Famotidine 20 mg PO BID #20 tablet 06/11/19 Folic Acid 1 mg PO DAILY #14 tablet 06/11/19 Loratadine 10 mg PO DAILY #14 tablet 06/11/19 Naloxone HCl [Narcan] 4 mg NS PRN PRN #14 spray 06/11/19 Thiamine HCl [Vitamin B-1] 100 mg PO DAILY #14 tablet 06/11/19 Ranitidine HCl [Zantac] 150 mg PO BID 06/28/19 Albuterol Sulfate Inhaler - [Ventolin HFA Inhaler -] 2 inh PO Q4H PRN #1 inhaler 07/02/19 Latanoprost 0.005% Eye Drops [Xalatan 0.005% Eye Drops -] 1 drop OU HS #1 bottle 07/02/19 Tamsulosin HCl [Flomax -] 0.4 mg PO DAILY #30 cap.er.24h 07/02/19 Timolol 0.5% [Timoptic 0.5%] 1 drop OU BID #1 drops 07/02/19 Anemia: No Asthma: Yes Cancer: No Cardiac Disorders: No CVA: No COPD: No CHF: No Dementia: No Diabetes: No GI Disorders: No Disorders: No HTN: No Hypercholesterolemia: No Kidney Stones: No Liver Disease: No Seizures: No Thyroid Disease: No - Surgical History Abdominal Surgery: No Appendectomy: No Cardiac Surgery: No Cholecystectomy: No Lung Surgery: No Neurologic Surgery: Yes (C-SPINE FUSION IN 2016) Orthopedic Surgery: Yes (Sx bilateral wrist and R ankle sx; ON THE NECK) - Reproductive History Testicular Surgery: No - Suicide/Smoking/Psychosocial Hx Smoking History: Never smoked Have you smoked in the past 12 months: No Number of Cigarettes Smoked Daily: 40 Cigars Per Day: 0 'Breaking Loose' booklet given: 06/28/19 Hx Alcohol Use: Yes Drug/Substance Use Hx: Yes Substance Use Type: Alcohol Hx Substance Use Treatment: Yes ([facility]) Review of Systems - Review of Systems Able to Perform ROS?: Yes Is the patient limited Slovenian proficient: No Constitutional: No: Symptoms Reported HEENTM: Yes: Blurred Vision, Cataracts. No: Recent change in vision, Nose Bleeding, Mouth Pain Respiratory: No: Symptoms reported Cardiac (ROS): No: Symptoms Reported ABD/GI: Yes: Diarrhea, Nausea, Vomiting. No: Constipated, Poor Appetite : No: Symptoms Reported Musculoskeletal: No: Symptoms Reported Integumentary: Yes: Lumps (L wrist) 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: Yes: Tremors. No: Headache, Paresthesia, Weakness Endocrine: No: Symptoms Reported Hematologic/Lymphatic: No: Symptoms Reported All Other Systems: Reviewed and Negative *Physical Exam - Vital Signs Last Vital Signs Temp Pulse Resp BP Pulse Ox 98 F 96 H 15 109/64 92 L 08/02/19 04:34 08/02/19 04:34 08/02/19 04:34 08/02/19 04:34 08/02/19 04:34 - Physical Exam General Appearance: Yes: Nourished, Appropriately Dressed, Disheveled, Alcohol on Breath. No: Apparent Distress, Intoxicated HEENT: positive: EOMI, MARISOL, Normal Voice, Symmetrical, Pharynx Normal, Hearing Grossly Normal. negative: Scleral Icterus (R), Scleral Icterus (L), Pharyngeal Erythema, Tonsillar Exudate, Tonsillar Erythema Neck: positive: Trachea midline, Normal Thyroid, Supple. negative: Tender, Lymphadenopathy (R), Lymphadenopathy (L) Respiratory/Chest: positive: Lungs Clear, Normal Breath Sounds. negative: Respiratory Distress, Crackles, Rales, Rhonchi Cardiovascular: positive: Regular Rhythm, Regular Rate. negative: Murmur Gastrointestinal/Abdominal: positive: Normal Bowel Sounds, Flat, Soft. negative : Tender Musculoskeletal: positive: Normal Inspection Extremity: positive: Normal Capillary Refill, Normal Range of Motion, Other (non -tender lump to L wrist, hand has full ROM and is neuro/vasc intact). negative : Tender Integumentary: positive: Normal Color, Warm, Diaphoresis Neurologic: positive: Fully Oriented, Alert, Normal Mood/Affect, Normal Response , Other (intention tremor to both hands). negative: Confused ED Treatment Course - LABORATORY CBC & Chemistry Diagram: 08/02/19 08:00 08/02/19 08:00 Medical Decision Making - Medical Decision Making 08/02/19 06:45 Anderson Mcrae is a 58M presenting from [facility] with alcohol intoxication and withdrawal. Here has clear tremor and diaphoresis consistent with alcohol withdrawal, as well as new onset N/V/D. Still intoxicated at this time. Plan to give 50mg Librium to control withdrawal, as well as replete lost fluids with 1L NS, check electrolytes and dietary status via CMP and CBC, and give Pepcid and Maalox to control nausea and possible gastritis symptoms. [id number] after medications given, plan to discharge from ED to have patient return to [facility]. 08/02/19 07:[address] Swartz. *DC/Admit/Observation/Transfer Diagnosis at time of Disposition: Alcohol dependence with uncomplicated withdrawal Alcohol withdrawal Qualifiers: Complication of substance-induced condition: uncomplicated Qualified Code(s): F10.230 - Alcohol dependence with withdrawal, uncomplicated Alcohol intoxication Qualifiers: Complication of substance-induced condition: uncomplicated Qualified Code(s): F10.920 - Alcohol use, unspecified with intoxication, uncomplicated - Discharge Dispostion Disposition: TRANSFER ACUTE CARE/OTHER HOSP Condition at time of disposition: Stable - Referrals Referrals: Jessica Edward MD [Primary Care Provider] - - Patient Instructions Printed Discharge Instructions: DI for Alcohol Abuse Additional Instructions: Today you were evaluated for alcohol withdrawal. To prevent delirium tremens, we gave you Librium to prevent worsening withdrawal. We also gave you some IV fluids to keep you hydrated. - Post Discharge Activity
[2019-08-02] MEDS ORDERED: chlordiazePOXIDE HCL 25 MG CAPSULE ONE (07:14)
--- NOTE | 2019-08-02 07:19 | PDOC ---
*Physical Exam - Vital Signs Last Vital Signs Temp Pulse Resp BP Pulse Ox 98 F 96 H 15 109/64 92 L 08/02/19 04:34 08/02/19 04:34 08/02/19 04:34 08/02/19 04:34 08/02/19 04:34 - Physical Exam Comments: 08/02/19 07:19 Received sign out from day team 58 M with a hx of ETOH abuse presents to the emergency with ETOH abuse. Pending items: reassessment 08/02/19 07:21 ED Treatment Course - LABORATORY CBC & Chemistry Diagram: 08/02/19 08:00 08/02/19 08:00 - Medications Given in the ED: ED Medications Discontinued Medications Generic Name Dose Route Start Last Admin Trade Name Freq PRN Reason Stop Dose Admin Chlordiazepoxide HCl 50 mg 08/02/19 06:44 08/02/19 07:17 Librium - PO 08/02/19 06:45 50 mg ONCE ONE Administration Medical Decision Making - Medical Decision Making Patient was reassessed. Patient continues to have nausea. Patient was given zofran. labs were within normal limits Laboratory Tests 08/02/19 08/02/19 08:00 08:00 WBC 3.6 L RBC 4.34 Hgb 12.9 Hct 38.8 D MCV 89.5 MCH 29.8 MCHC 33.3 RDW 17.0 H Plt Count 228 MPV 8.7 Absolute Neuts (auto) 2.7 Neutrophils % 74.3 Lymphocytes % 16.1 Monocytes % 5.7 Eosinophils % 3.3 Basophils % 0.6 Nucleated RBC % 0 Sodium 141 Potassium 3.9 Chloride 103 Carbon Dioxide 33 H Anion Gap 5 L BUN 6.8 L Creatinine 0.9 Est GFR (CKD-EPI)AfAm 107.22 Est GFR (CKD-EPI)NonAf 92.51 Random Glucose 86 Calcium 8.8 Total Bilirubin 0.3 AST 33 ALT 19 Alkaline Phosphatase 104 Total Protein 7.7 Albumin 3.9 Patient was accepted to [facility] for alcohol detoxification. at the time of transfer, the patient did not exhibit tremors and vomiting. Dispo: Discharge to [facility] *DC/Admit/Observation/Transfer Diagnosis at time of Disposition: Alcohol dependence with uncomplicated withdrawal Alcohol withdrawal Qualifiers: Complication of substance-induced condition: uncomplicated Qualified Code(s): F10.230 - Alcohol dependence with withdrawal, uncomplicated Alcohol intoxication Qualifiers: Complication of substance-induced condition: uncomplicated Qualified Code(s): F10.920 - Alcohol use, unspecified with intoxication, uncomplicated - Discharge Dispostion Disposition: TRANSFER ACUTE CARE/OTHER HOSP Condition at time of disposition: Stable Decision to Admit order: No - Referrals Referrals: Jessica Edward MD [Primary Care Provider] - - Patient Instructions Printed Discharge Instructions: DI for Alcohol Abuse Additional Instructions: Today you were evaluated for alcohol withdrawal. To prevent delirium tremens, we gave you Librium to prevent worsening withdrawal. We also gave you some IV fluids to keep you hydrated. - Post Discharge Activity
[2019-08-02 08:23] LABS: BASO % 0.6 % (0-2.0); EOS % 3.3 % (0-4.5); HEMATOCRIT 38.8 % (35.4-49); HEMOGLOBIN 12.9 GM/dL (11.7-16.9); LYMPH % 16.1 % (8-40); MCH 29.8 pg (25.7-33.7); MCHC 33.3 g/dl (32.0-35.9); MEAN CELL VOLUME 89.5 fl (80-96); MEAN PLT VOLUME 8.7 fl (7.5-11.1); MONO % 5.7 % (3.8-10.2); NEUT % 74.3 % (42.8-82.8); PLATELET COUNT 228 K/MM3 (134-434); RBC 4.34 M/mm3 (4.00-5.60); WHITE BLOOD COUNT 3.6 K/mm3 (4.0-10.0)
[2019-08-02 08:36] LABS: ALBUMIN 3.9 g/dl (3.4-5.0); BILIRUBIN,TOTAL 0.3 mg/dL (0.2-1); BLOOD UREA NITROGEN 6.8 mg/dL (7-18); CALCIUM 8.8 mg/dL (8.5-10.1); CREATININE 0.9 mg/dL (0.55-1.3); POTASSIUM 3.9 mmol/L (3.5-5.1); TOT PROT 7.7 g/dl (6.4-8.2)
[2019-08-02] MEDS ORDERED: ONDANSETRON *ODT* 4 MG TABLET SL ONE (09:47)
[2019-08-02] MEDS ORDERED: ONDANSETRON *ODT* 4 MG TABLET ONE (10:03)
== END 2019-08-02 10:37 | disposition short-term general hospital (02) ==
LOC: JER 03:45
PROC: 3E033GC Introduction of Other Therapeutic Substance into Peripheral Vein, Percutaneous Approach (ICD-10-PCS; principal; 2019-08-02)
PROC: 3E0337Z Introduction of Electrolytic and Water Balance Substance into Peripheral Vein, Percutaneous Approach (ICD-10-PCS; 2019-08-02)
DX: F10.920 Alcohol use, unspecified with intoxication, uncomplicated (principal); J45.909 Unspecified asthma, uncomplicated
CPT/HCPCS: 36415; 80053; 85025; 96365; 99283-25; Q0162

== ENCOUNTER 2019-09-16 14:54 | Inpatient (IN) | payer OTHER ==
[2019-09-16 17:19] VITALS: BMI 25.8
--- NOTE | 2019-09-16 18:31 | HP ---
CIWA Score Nausea/Vomitin Muscle Tremors: 2 Anxiety: 2 Agitation: 2 Paroxysmal Sweats: 2 Orientation: 1-Uncertain about Date Tacttile Disturbances: 2-Mild Itch/Numbness/Burn Auditory Disturbances: 0-None Visual Disturbances: 0-None Headache: 3-Moderate CIWA-Ar Total Score: 17 - Admission Criteria OASAS Guidelines: Admission for Medically Managed Detox: Requires at least one of the followin. CIWA greater than 12 2. Seizures within the past 24 hours 3. Delirium tremens within the past 24 hours 4. Hallucinations within the past 24 hours 5. Acute intervention needed for co occurring medical disorder 6. Acute intervention needed for co occurring psychiatric disorder 7. Severe withdrawal that cannot be handled at a lower level of care (continued vomiting, continued diarrhea, abnormal vital signs) requiring intravenous medication and/or fluids 8. Admitting History and Physical - Smoking History Smoking history: Never smoked Have you smoked in the past 12 months: No Aproximately how many cigarettes per day: 40 - Alcohol/Substance Use Hx Alcohol Use: Yes Admission ROS [facility] Chief Complaint: detox alcohol Allergies/Adverse Reactions: Allergies Allergy/AdvReac Type Severity Reaction Status Date / Time metoclopramide HCl Allergy Severe Swelling Verified 09/16/19 17:10 [From Reglan] Penicillins Allergy Severe Hives Verified 09/16/19 17:10 shellfish derived Allergy Severe Swelling Verified 09/16/19 17:10 orange juice AdvReac Mild Rash Verified 09/16/19 17:10 History of Present Illness: 58 year old male with a history of COPD, anemia, glaucoma/cataracts, metal plates in R ankle, cervical spine fusion, anxiety/depression here for alcohol detox. Here multiple times in the past. Seen at [facility] 2 days ago s/p fall with scalp laceration s/p repair with chong. Patient reports that he was told he didn't have a brain hemorrhage and was told that he was to follow up within 5 days for staple removal. No legal battles. Alcohol: daily drinker, 4 pints of vodka every day, 3-4 four lokos daily. Has had withdrawal seizure, cannot remember when was the last time. Drinking since 14 years old. Longest sobriety 2 years. 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 Family: mother and sister, nicolás lomeli has 2 kids, not close with them Exam Limitations: No Limitations - Ebola screening Have you traveled outside of the country in the last 21 days: No Have you had contact with anyone from an Ebola affected area: No - Review of Systems Constitutional: Chills, Diaphoresis, Fever, Loss of Appetite EENT: reports: Blurred Vision, Eye Pain, Ear Pain, Nose Congestion Respiratory: reports: Cough, Shortness of Breath, Productive cough Cardiac: reports: Chest Pain, Lightheadedness, Palpitations GI: reports: Diarrhea : reports: No Symptoms Reported Musculoskeletal: reports: Back Pain Integumentary: reports: Pruritus Neuro: reports: Headache Endocrine: reports: No Symptoms Reported Hematology: reports: Anemia Psychiatric: reports: Judgement Intact, Mood/Affect Appropiate, Orientated x3, Agitated, Anxious, Depressed Patient History - Patient Medical History Hx Anemia: No Hx Asthma: Yes Hx Chronic Obstructive Pulmonary Disease (COPD): No Hx Cancer: No Hx Cardiac Disorders: No Hx Congestive Heart Failure: No Hx Hypertension: No Hx Hypercholesterolemia: No Hx Pacemaker: No HX Cerebrovascular Accident: No Hx Seizures: No Hx Dementia: No Hx Diabetes: No Hx Gastrointestinal Disorders: No Hx Liver Disease: No Hx Genitourinary Disorders: No Hx Sexually Transmitted Disorders: No Hx Renal Disease (ESRD): No Hx Thyroid Disease: No Hx Human Immunodeficiency Virus (HIV): No (05/14 negative ) Hx Hepatitis C: No Hx Depression: Yes Hx Suicide Attempt: No (Denies suicidal ideation at this time) Hx Bipolar Disorder: No Hx Schizophrenia: Yes - Patient Surgical History Past Surgical History: Yes Hx Neurologic Surgery: Yes (C-SPINE FUSION IN 2016) Hx Cataract Extraction: No Hx Cardiac Surgery: No Hx Lung Surgery: No Hx Breast Surgery: No Hx Breast Biopsy: No Hx Abdominal Surgery: No Hx Appendectomy: No Hx Cholecystectomy: No Hx Genitourinary Surgery: No Hx Section: No Hx Orthopedic Surgery: Yes (Sx bilateral wrist and R ankle sx; ON THE NECK) Other Surgical History: HE FELL DOWN 4 DAYS AGO AND INJURED THE SCALP - STAPLED Anesthesia Reaction: No - PPD History Date: 06/05/18 Results: 0 MM - Smoking Cessation Smoking history: Never smoked Have you smoked in the past 12 months: No Aproximately how many cigarettes per day: 40 Cigars Per Day: 0 Hx Chewing Tobacco Use: No - Substances abused Alcohol Substance route: Oral Frequency: Daily Amount used: 3 pints of vodka, 24 oz of beer Age of first use: 14 Date of last use: 09/16/19 Marijuana/Hashish Substance route: Skin popping Frequency: 3-6 times per week Amount used: 1 to 2 blunt Age of first use: 14 Date of last use: 09/10/19 Admission Physical Exam S - Vital Signs Vital Signs: Vital Signs - 24 hr 09/16/19 17:17 Temperature 98.7 F Pulse Rate 94 H Respiratory 18 Rate Blood Pressure 113/70 - Physical General Appearance: Yes: Within Normal Limits, No Apparent Distress, Nourished, Disheveled, Mild Distress HEENTM: Yes: EOMI, Normal ENT Inspection, Normocephalic (4cm scar noted on scalp held together by chong, non-draining, multiple old head scars noted), Normal Voice Respiratory: Yes: Chest Non-Tender, Lungs Clear, Normal Breath Sounds Neck: Yes: Within Normal Limits, Other (posterior surgical scar noted well healed) Breast: Yes: Within Normal Limits Cardiology: Yes: Regular Rhythm, Regular Rate Abdominal: Yes: Normal Bowel Sounds, Non Tender, Flat, Soft Musculoskeletal: Yes: full range of Motion Extremities: Yes: Normal Capillary Refill 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: Yes: Within Normal Limits, can coverer II-XII NML intact, Fully Oriented, Alert, Motor Strength 5/5, Normal Mood/Affect Integumentary: Yes: Dry, Warm Lymphatic: Yes: Within Normal Limits - Diagnostic (1) Alcohol dependence with uncomplicated withdrawal Current Visit: No Status: Acute (2) Alcohol withdrawal Current Visit: No Status: Acute Qualifiers: Complication of substance-induced condition: uncomplicated Qualified Code(s ): F10.230 - Alcohol dependence with withdrawal, uncomplicated (3) Drug-induced mood disorder Current Visit: No Status: Acute (4) Nicotine dependence Current Visit: No Status: Acute Qualifiers: Nicotine product type: cigarettes Substance use status: in withdrawal Qualified Code(s): F17.213 - Nicotine dependence, cigarettes, with withdrawal (5) Anxiety and depression Current Visit: No Status: Chronic Cleared for Admission [facility] - Detox or Rehab [facility] Level of Care: Medically Supervised Breathalyzer - Breathalyzer Breathalyzer: 0.156 Urine Drug Screen - Test Device Lot number: [id number] Expiration date: 04/26/21 - Control Is test valid?: Yes - Results Drug screen NEGATIVE: Yes Urine drug screen results: BZO-Benzodiazepines Inpatient Rehab Admission - Rehab Decision to Admit Inpatient rehab admission?: No
[2019-09-16] MEDS ORDERED: IBUPROFEN 400 MG TABLET (FP) PO PRN (18:49)
[2019-09-16] MEDS ORDERED: METHOCARBAMOL 500 MG TABLET PO PRN (18:49)
[2019-09-16] MEDS ORDERED: BISMUTH SUBSALICYLATE 524 MG/30 ML UD PO PRN (18:49)
[2019-09-16] MEDS ORDERED: MENTHOL/PHENOL 1 EACH UD MM PRN (18:49)
[2019-09-16] MEDS ORDERED: ACETAMINOPHEN 325 MG TABLET (FP) PO PRN (18:49)
[2019-09-16] MEDS ORDERED: chlordiazePOXIDE HCL 25 MG CAPSULE PO PRN (18:49)
[2019-09-16] MEDS ORDERED: MAGNESIUM CITRATE 300 ML BOTTLE PO PRN (18:49)
[2019-09-16] MEDS ORDERED: MAG HYDROX/AL HYDROX/SIMETH 30 ML UNIT-DOSE CUP PO PRN (18:49)
[2019-09-16] MEDS ORDERED: MAGNESIUM HYDROX 2400MG/30ML ORAL SUSPENSION 30 ML CUP PO PRN (18:49)
[2019-09-16] MEDS ORDERED: hydrOXYzine PAMOATE 25 MG CAPSULE (FP) PO PRN (18:49)
--- NOTE | 2019-09-16 19:38 | PN ---
Teaching Attending Note Name of Resident: Gamal Nicole ATTENDING PHYSICIAN STATEMENT I saw and evaluated the patient. I reviewed the resident's note and discussed the case with the resident. I agree with the resident's findings and plan as documented. SUBJECTIVE: 58 yo with h/o AUD. Multiple admissions for alcohol detox. Pt is s/ p fall 4 days ago, with chong in place OBJECTIVE: Vital Signs - 24 hr 09/16/19 17:17 Temperature 98.7 F Pulse Rate 94 H Respiratory 18 Rate Blood Pressure 113/70 alert and oriented chong in place- clean and dry ASSESSMENT AND PLAN: AUD- detox protocol
[2019-09-16] MEDS ORDERED: NAPROXEN 500 MG TABLET (FP) PO ONE (19:42)
[2019-09-16] MEDS ORDERED: diphenhydrAMINE HCL 25 MG CAPSULE (FP) PO ONE (19:42)
[2019-09-16] MEDS ORDERED: MELATONIN 5 MG TABLETS PO PRN (22:00)
[2019-09-16] MEDS: TIMOLOL 0.5% OPHTHALMIC SOL 5 ML BOTTLE OU SCH (22:47)
[2019-09-16] MEDS: chlordiazePOXIDE HCL 25 MG CAPSULE PO SCH (22:48)
[2019-09-16] MEDS: LATANOPROST 0.005% OPHTH SOLN 2.5ML BOTTLE OU SCH (22:48)
[2019-09-16] MEDS: THIAMINE HCL 100 MG TABLET (FP) PO SCH (22:49)
[2019-09-17] MEDS: chlordiazePOXIDE HCL 25 MG CAPSULE PO SCH ×4 (07:14→22:53)
[2019-09-17] MEDS: ALBUTEROL SO4 8 GM HFA INHALER IH PRN ×2 (07:47→17:59)
--- NOTE | 2019-09-17 10:21 | PN ---
[facility] CIWA - CIWA Score Nausea/Vomitin-Mild Nausea/No Vomiting Muscle Tremors: 3 Anxiety: 3 Agitation: 2 Paroxysmal Sweats: 2 Orientation: 0-Oriented (date of the week) Tacttile Disturbances: 1-Very Mild Itch/Numbness Auditory Disturbances: 1-Very Mild Visual Disturbances: 0-None Headache: 0-None Present CIWA-Ar Total Score: 13 [facility] Progress Note (SOAP) Subjective: doing well with librium detox regimen patient demands glaucoma medication "two of them" to be administered patient requests promising month refill glaucoma medication sent to pharmacy encourage the runner out evaluation eye pressure for proper glaucoma treatment patient has limited conversation with the health underwriter at this time Objective: 09/17/19 10:21 Vital Signs Temperature 98.1 F 09/17/19 09:12 Pulse Rate 71 09/17/19 09:12 Respiratory Rate 18 09/17/19 09:12 Blood Pressure 122/71 09/17/19 09:12 O2 Sat by Pulse Oximetry (%) 09/17/19 10:22 lab pending Assessment: 09/17/19 10:22 alcohol withdrawal sx Plan: continue librium detox regimen
[2019-09-17] MEDS: PRENATAL VITAMINS W/ FOLIC ACID TABLET (FP) PO SCH (10:40)
[2019-09-17] MEDS: TAMSULOSIN HCL 0.4 MG CAP PO SCH (10:40)
[2019-09-17] MEDS: TIMOLOL 0.5% OPHTHALMIC SOL 5 ML BOTTLE OU SCH ×2 (10:41→22:55)
[2019-09-17 12:03] LABS: HEMATOCRIT 35.3 % (35.4-49); HEMOGLOBIN 11.7 GM/dL (11.7-16.9); MCH 30.4 pg (25.7-33.7); MCHC 33.1 g/dl (32.0-35.9); MEAN CELL VOLUME 91.9 fl (80-96); MEAN PLT VOLUME 8.8 fl (7.5-11.1); PLATELET COUNT 214 K/MM3 (134-434); RBC 3.85 M/mm3 (4.00-5.60); RDW 15.6 % (11.9-15.9); WHITE BLOOD COUNT 4.5 K/mm3 (4.0-10.0)
[2019-09-17 12:18] LABS: ALBUMIN 3.4 g/dl (3.4-5.0); BILIRUBIN,TOTAL 0.4 mg/dL (0.2-1); BLOOD UREA NITROGEN 7.1 mg/dL (7-18); CALCIUM 8.2 mg/dL (8.5-10.1); CREATININE 0.9 mg/dL (0.55-1.3); POTASSIUM 3.9 mmol/L (3.5-5.1); TOT PROT 6.6 g/dl (6.4-8.2)
--- NOTE | 2019-09-17 15:05 | CONSULT ---
[facility] Psychiatric Consult - Data Date of interview: 09/17/19 Admission source: [facility] Identifying data: Readmission to [facility] for this 58 y/o AA male, self- referred for detoxification (alcohol, cocaine, nicotine). Interviewed at [address] [place] [address]. Patient is single, no children, domiciled (lives with his payee), disabled (ambulates with a cane), unemployed and supported on SSI benefits. Substance Abuse History: Discussed with patient. Details in current [facility] report as follows : Smoking history: Never smoked. Have you smoked in the past 12 months: No. Aproximately how many cigarettes per day: 40. Cigars Per Day: 0. Hx Chewing Tobacco Use: No. - Substances abused. Alcohol. Substance route : Oral. Frequency: Daily. Amount used: 3 pints of vodka, 24 oz of beer. Age of first use: 14. Date of last use: 09/16/19. Marijuana/Hashish. Substance route: Skin popping. Frequency: 3-6 times per week. Amount used: 1 to 2 blunt. Age of first use: 14. Date of last use: 09/10/19 Medical History: Medical profile is remarkable for GERD, arthritis, glaucoma, cataracts (bilateral), withdrawal seizures, peptic ulcer disease, cyst of left wrist, cervical fusion (consequence of injuries sustained in a fall while riding an escalator 3-4 years ago), BPH (benign prostatic hyperplasia), past history of orthosurgery for fracture of right ankle (hardware in situ) and surgery for laceration of right wrist (glass). History of frequent falls. Patient uses a cane for ambulation. Recent fall (prior to [facility] visit) in the community that caused laceration of scalp (chong in place). Psychiatric History: Patient presents with a history of multiple psychiatric hospitalizations (, [facility], [facility], [facility] in [place]). Diagnosed with Schizoaffective Disorder. Chronically non-adherent to psychiatric OPD care. Mr Mcrae continues to abstain from psychiatric OPD care. Gets prescribed trazodone (insomnia) from his primary care physician. Patient denies history of suicide attempts. Physical/Sexual Abuse/Trauma History: Patient denies. Additional Comment: Urine drug screen results: LUCA-Cocaine, BZO- Benzodiazepines. Noted. Mental Status Exam - Mental Status Exam Alert and Oriented to: Time, Place, Person Cognitive Function: Good Patient Appearance: Unkempt, Disheveled Mood: Withdrawn Affect: Mood Congruent, Constricted Patient Behavior: Fatigued, Cooperative Speech Pattern: Clear, Appropriate Voice Loudness: Normal Thought Process: Goal Oriented Hallucinations: Denies Suicidal Ideation: Denies Homicidal Ideation: Denies Insight/Judgement: Poor Sleep: Poorly, Difficulty falling asleep Appetite: Good Gait/Station: Other (walks with a cane) Psychiatric Findings - Problem List ([place] 1, 2,3) (1) Alcohol dependence with uncomplicated withdrawal Current Visit: Yes Status: Acute (2) Cocaine dependence Current Visit: Yes Status: Chronic Qualifiers: Substance use status: uncomplicated Qualified Code(s): F14.20 - Cocaine dependence, uncomplicated (3) Nicotine dependence Current Visit: Yes Status: Chronic Qualifiers: Nicotine product type: cigarettes Substance use status: in withdrawal Qualified Code(s): F17.213 - Nicotine dependence, cigarettes, with withdrawal (4) History of schizoaffective disorder Current Visit: Yes Status: Chronic Comment: Never adherent to OPD care. (5) Substance induced mood disorder Current Visit: Yes Status: Chronic (6) Insomnia Current Visit: Yes Status: Chronic - Initial Treatment Plan Initial Treatment Plan: Psychoeducation. Sleep hygiene. Detoxification. Trazodone 100 mg po hs. Patient is made aware of risk of priapism. He agrees with this plan of care. Gave verbal consent to MD. Rene.
[2019-09-17] MEDS: guaiFENesin 600 MG TABLET.ER (FP) PO SCH ×2 (15:16→22:54)
[2019-09-17] MEDS: SODIUM CHLORIDE NASAL SPRAY 44 ML BOTTLE NS SCH ×2 (15:17→22:55)
[2019-09-17] MEDS: ACETAMINOPHEN 325 MG TABLET (FP) PO PRN (17:57)
[2019-09-17] MEDS: traZODone HCL 100 MG TABLET (FP) PO SCH (22:54)
[2019-09-17] MEDS: THIAMINE HCL 100 MG TABLET (FP) PO SCH (22:54)
[2019-09-17] MEDS: LATANOPROST 0.005% OPHTH SOLN 2.5ML BOTTLE OU SCH (22:55)
[2019-09-18] MEDS: chlordiazePOXIDE HCL 25 MG CAPSULE PO SCH ×4 (06:23→22:54)
[2019-09-18] MEDS: SODIUM CHLORIDE NASAL SPRAY 44 ML BOTTLE NS SCH ×3 (06:24→22:55)
[2019-09-18] MEDS: ALBUTEROL SO4 8 GM HFA INHALER IH PRN (06:24)
[2019-09-18] MEDS: ACETAMINOPHEN 325 MG TABLET (FP) PO PRN (06:25)
[2019-09-18] MEDS: PRENATAL VITAMINS W/ FOLIC ACID TABLET (FP) PO SCH (11:17)
[2019-09-18] MEDS: TAMSULOSIN HCL 0.4 MG CAP PO SCH (11:17)
[2019-09-18] MEDS: guaiFENesin 600 MG TABLET.ER (FP) PO SCH ×2 (11:17→22:54)
[2019-09-18] MEDS: TIMOLOL 0.5% OPHTHALMIC SOL 5 ML BOTTLE OU SCH (11:18)
[2019-09-18] MEDS ORDERED: LOPERAMIDE HCL 2 MG CAPSULE PO PRN (13:00)
--- NOTE | 2019-09-18 13:25 | PN ---
[facility] CIWA - CIWA Score Nausea/Vomitin-Mild Nausea/No Vomiting Muscle Tremors: 2 Anxiety: 2 Agitation: 2 Paroxysmal Sweats: No Perspiration Orientation: 0-Oriented Tacttile Disturbances: 1-Very Mild Itch/Numbness Auditory Disturbances: 0-None Visual Disturbances: 1-Very Mild Sensitivity Headache: 2-Mild CIWA-Ar Total Score: 11 S Progress Note (SOAP) Subjective: alert,irritable,anxious,interrupted sleep,diarrhea,itching,pain in the body Objective: 09/18/19 13:24 Vital Signs Temperature 97.0 F L 09/18/19 13:09 Pulse Rate 73 09/18/19 13:09 Respiratory Rate 18 09/18/19 13:09 Blood Pressure 126/76 09/18/19 13:09 O2 Sat by Pulse Oximetry (%) Laboratory Last Values WBC 4.5 K/mm3 (4.0-10.0) 09/17/19 08:40 RBC 3.85 M/mm3 (4.00-5.60) L 09/17/19 08:40 Hgb 11.7 GM/dL (11.7-16.9) 09/17/19 08:40 Hct 35.3 % (35.4-49) L 09/17/19 08:40 MCV 91.9 fl (80-96) 09/17/19 08:40 MCH 30.4 pg (25.7-33.7) 09/17/19 08:40 MCHC 33.1 g/dl (32.0-35.9) 09/17/19 08:40 RDW 15.6 % (11.9-15.9) 09/17/19 08:40 Plt Count 214 K/MM3 (134-434) 09/17/19 08:40 MPV 8.8 fl (7.5-11.1) 09/17/19 08:40 Sodium 139 mmol/L (136-145) 09/17/19 08:40 Potassium 3.9 mmol/L (3.5-5.1) 09/17/19 08:40 Chloride 102 mmol/L (98-107) 09/17/19 08:40 Carbon Dioxide 31 mmol/L (21-32) 09/17/19 08:40 Anion Gap 6 MMOL/L (8-16) L 09/17/19 08:40 BUN 7.1 mg/dL (7-18) 09/17/19 08:40 Creatinine 0.9 mg/dL (0.55-1.3) 09/17/19 08:40 Est GFR (CKD-EPI)AfAm 107.22 09/17/19 08:40 Est GFR (CKD-EPI)NonAf 92.51 09/17/19 08:40 Random Glucose 78 mg/dL (74-106) 09/17/19 08:40 Calcium 8.2 mg/dL (8.5-10.1) L 09/17/19 08:40 Total Bilirubin 0.4 mg/dL (0.2-1) 09/17/19 08:40 AST 28 U/L (15-37) 09/17/19 08:40 ALT 17 U/L (13-61) 09/17/19 08:40 Alkaline Phosphatase 102 U/L (45-117) 09/17/19 08:40 Total Protein 6.6 g/dl (6.4-8.2) 09/17/19 08:40 Albumin 3.4 g/dl (3.4-5.0) 09/17/19 08:40 RPR Titer Nonreactive (NONREACTIVE) 09/17/19 08:40 Assessment: 09/18/19 13:25 withdrawal symptom Plan: continue detox librium regimen,zantac 150 mg po bid by patient's request,also imodium 4 mgs po q 6 hrs for diarrhea,benadryl 25 mgs po q hrs prn for itching for 3 days
[2019-09-18] MEDS: diphenhydrAMINE HCL 25 MG CAPSULE (FP) PO PRN ×2 (14:58→22:55)
[2019-09-18] MEDS: FAMOTIDINE 20 MG TABLET PO SCH ×2 (14:59→22:56)
[2019-09-18] MEDS ORDERED: P-EPHED 60MG/TRIPROLIDI 2.5MG TABLET PO PRN (18:42)
[2019-09-18] MEDS: LATANOPROST 0.005% OPHTH SOLN 2.5ML BOTTLE OU SCH (22:54)
[2019-09-18] MEDS: traZODone HCL 100 MG TABLET (FP) PO SCH (22:54)
[2019-09-18] MEDS: THIAMINE HCL 100 MG TABLET (FP) PO SCH (22:54)
[2019-09-19] MEDS ORDERED: chlordiazePOXIDE HCL 10 MG CAPSULE PO PRN
[2019-09-19] MEDS: SODIUM CHLORIDE NASAL SPRAY 44 ML BOTTLE NS SCH ×3 (07:17→22:33)
[2019-09-19] MEDS: chlordiazePOXIDE HCL 10 MG CAPSULE PO SCH ×4 (07:17→22:33)
[2019-09-19] MEDS: TAMSULOSIN HCL 0.4 MG CAP PO SCH (09:28)
[2019-09-19] MEDS: PRENATAL VITAMINS W/ FOLIC ACID TABLET (FP) PO SCH (09:33)
[2019-09-19] MEDS: FAMOTIDINE 20 MG TABLET PO SCH ×2 (09:37→22:48)
[2019-09-19] MEDS: ALBUTEROL SO4 8 GM HFA INHALER IH PRN ×2 (09:38→17:40)
[2019-09-19] MEDS: TIMOLOL 0.5% OPHTHALMIC SOL 5 ML BOTTLE OU SCH ×2 (09:40→17:34)
[2019-09-19] MEDS: guaiFENesin 600 MG TABLET.ER (FP) PO SCH (10:35)
[2019-09-19] MEDS ORDERED: COLLOIDAL OATMEAL 1 BAR EACH TP PRN (12:56)
[2019-09-19] MEDS: guaiFENesin 200 MG/10 ML 10 ML UNIT-DOSE CUPS PO PRN ×2 (13:24→22:46)
--- NOTE | 2019-09-19 13:38 | PN ---
S CIWA - CIWA Score Nausea/Vomitin-Mild Nausea/No Vomiting Muscle Tremors: 1-None Visible, but [place] Anxiety: 2 Agitation: 2 Paroxysmal Sweats: No Perspiration Orientation: 0-Oriented Tacttile Disturbances: 1-Very Mild Itch/Numbness Auditory Disturbances: 0-None Visual Disturbances: 0-None Headache: 1-Very Mild CIWA-Ar Total Score: 8 [facility] Progress Note (SOAP) Subjective: alert,irritable,anxious,interrupted sleep,coughing Objective: 09/19/19 13:36 Vital Signs Temperature 96.6 F L 09/19/19 09:29 Pulse Rate 66 09/19/19 09:29 Respiratory Rate 18 09/19/19 09:29 Blood Pressure 94/60 09/19/19 09:29 O2 Sat by Pulse Oximetry (%) Assessment: 09/19/19 13:37 withdrawal symptom Plan: continue detox librium regimen
[2019-09-19] MEDS: ACETAMINOPHEN 325 MG TABLET (FP) PO PRN (17:33)
[2019-09-19] MEDS: THIAMINE HCL 100 MG TABLET (FP) PO SCH (22:33)
[2019-09-19] MEDS: diphenhydrAMINE HCL 25 MG CAPSULE (FP) PO PRN (22:33)
[2019-09-19] MEDS: traZODone HCL 100 MG TABLET (FP) PO SCH (22:33)
[2019-09-19] MEDS: LATANOPROST 0.005% OPHTH SOLN 2.5ML BOTTLE OU SCH (22:34)
[2019-09-20] MEDS: SODIUM CHLORIDE NASAL SPRAY 44 ML BOTTLE NS SCH ×3 (06:26→22:32)
[2019-09-20] MEDS: chlordiazePOXIDE HCL 10 MG CAPSULE PO SCH ×2 (06:26→18:03)
[2019-09-20] MEDS: ACETAMINOPHEN 325 MG TABLET (FP) PO PRN (06:27)
[2019-09-20] MEDS: ALBUTEROL SO4 8 GM HFA INHALER IH PRN ×2 (06:27→22:45)
[2019-09-20] MEDS: guaiFENesin 200 MG/10 ML 10 ML UNIT-DOSE CUPS PO PRN ×2 (06:27→22:45)
[2019-09-20] MEDS: TAMSULOSIN HCL 0.4 MG CAP PO SCH (09:29)
[2019-09-20] MEDS: FAMOTIDINE 20 MG TABLET PO SCH ×2 (10:29→22:32)
[2019-09-20] MEDS: PRENATAL VITAMINS W/ FOLIC ACID TABLET (FP) PO SCH (10:29)
[2019-09-20] MEDS: diphenhydrAMINE HCL 25 MG CAPSULE (FP) PO PRN ×2 (10:31→22:45)
[2019-09-20] MEDS: TIMOLOL 0.5% OPHTHALMIC SOL 5 ML BOTTLE OU SCH ×2 (10:32→18:04)
--- NOTE | 2019-09-20 12:13 | PN ---
S CIWA - CIWA Score Nausea/Vomitin-Mild Nausea/No Vomiting Muscle Tremors: 1-None Visible, but [place] Anxiety: 2 Agitation: 2 Paroxysmal Sweats: No Perspiration Orientation: 0-Oriented Tacttile Disturbances: 1-Very Mild Itch/Numbness Auditory Disturbances: 0-None Visual Disturbances: 0-None Headache: 1-Very Mild CIWA-Ar Total Score: 8 [facility] Progress Note (SOAP) Subjective: alert,irritable,anxious,interrupted sleep,chong of scalp old Objective: 09/20/19 12:12 Vital Signs Temperature 96.5 F L 09/20/19 09:07 Pulse Rate 79 09/20/19 09:07 Respiratory Rate 18 09/20/19 09:07 Blood Pressure 130/86 09/20/19 09:07 O2 Sat by Pulse Oximetry (%) Assessment: 09/20/19 12:13 withdrawal symptom Plan: continue detox librium regimen,discharge in am
[2019-09-20] MEDS: LATANOPROST 0.005% OPHTH SOLN 2.5ML BOTTLE OU SCH (22:31)
[2019-09-20] MEDS: THIAMINE HCL 100 MG TABLET (FP) PO SCH (22:31)
[2019-09-20] MEDS: traZODone HCL 100 MG TABLET (FP) PO SCH (22:32)
[2019-09-21] MEDS ORDERED: chlordiazePOXIDE HCL 10 MG CAPSULE PO ONE (05:00)
[2019-09-21] MEDS: SODIUM CHLORIDE NASAL SPRAY 44 ML BOTTLE NS SCH (06:10)
[2019-09-21] MEDS: ALBUTEROL SO4 8 GM HFA INHALER IH PRN (06:10)
[2019-09-21 09:40] VITALS: BP 84/55; PULSE 97; TEMP 97
[2019-09-21] MEDS: TAMSULOSIN HCL 0.4 MG CAP PO SCH (10:33)
[2019-09-21] MEDS: TIMOLOL 0.5% OPHTHALMIC SOL 5 ML BOTTLE OU SCH (10:34)
[2019-09-21] MEDS: PRENATAL VITAMINS W/ FOLIC ACID TABLET (FP) PO SCH (10:35)
--- NOTE | 2019-09-21 18:38 | DS ---
[facility] Detox Discharge Summary Admission Date: 09/16/19 Discharge Date: 09/21/19 - History Present History: Alcohol Dependence Additional Comments: PATIENT WILL ATTEND OUTPATIENT PROGRAM AT [facility] ([place], [place] ) FOR AFTERCARE. PATIENT ADVISED TO FOLLOW-UP WITH MEDICAL PROVIDER AT [facility] TO HAVE SUTURES THAT WERE PLACED IN SCALP FOR LACERATION PRIOR TO ADMISSION TO DETOX EVALUATED AND REMOVED. PATIENT VERBALIZED UNDERSTANDING OF RECOMMENDATION. PATIENT WAS DISCHARGED FROM DETOX UNIT IN STABLE MEDICAL CONDITION. Pertinent Past History: C.O.P.D., History Of anemia, History Of Glaucoma / Cataracts, Depression, Anxiety, Nicotine Dependence, Schizoaffective Disorder, Insomnia. - Physical Exam Results Vital Signs: Vital Signs Temperature 97.0 F L 09/21/19 09:39 Pulse Rate 97 H 09/21/19 09:39 Respiratory Rate 18 09/21/19 09:39 Blood Pressure 84/55 L 09/21/19 09:39 O2 Sat by Pulse Oximetry (%) Pertinent Admission Physical Exam Findings: WITHDRAWAL SYMPTOMS. Laboratory Tests 09/17/19 09/17/19 09/17/19 08:40 08:40 08:40 WBC 4.5 RBC 3.85 L Hgb 11.7 Hct 35.3 L MCV 91.9 MCH 30.4 MCHC 33.1 RDW 15.6 Plt Count 214 MPV 8.8 Sodium 139 Potassium 3.9 Chloride 102 Carbon Dioxide 31 Anion Gap 6 L BUN 7.1 Creatinine 0.9 Est GFR (CKD-EPI)AfAm 107.22 Est GFR (CKD-EPI)NonAf 92.51 Random Glucose 78 Calcium 8.2 L Total Bilirubin 0.4 AST 28 ALT 17 Alkaline Phosphatase 102 Total Protein 6.6 Albumin 3.4 RPR Titer Nonreactive LABS NOTED. - Treatment Hospital Course: Detox Protocol Followed, Detoxed Safely, Responded well, Discharged Condition Good Patient has Accepted a Rehab Referral to: [facility] OUTPATIENT PROGRAM ([place], [place]). - Medication Discharge Medications: Ambulatory Orders traZODone HCL [Desyrel -] 100 mg PO HS #30 tablet 10/31/18 Flunisolide 0.025 spray PO BID 05/04/19 Folic Acid 1 mg PO DAILY #14 tablet 06/11/19 Loratadine 10 mg PO DAILY #14 tablet 06/11/19 Naloxone HCl [Narcan] 4 mg NS PRN PRN #14 spray 06/11/19 Thiamine HCl [Vitamin B-1] 100 mg PO DAILY #14 tablet 06/11/19 Ranitidine HCl [Zantac] 150 mg PO BID 06/28/19 Albuterol Sulfate Inhaler - [Ventolin HFA Inhaler -] 2 inh PO Q4H PRN #1 inhaler 07/02/19 Latanoprost 0.005% Eye Drops [Xalatan 0.005% Eye Drops -] 1 drop OU HS #1 bottle 07/02/19 Tamsulosin HCl [Flomax -] 0.4 mg PO DAILY #30 cap.er.24h 07/02/19 Timolol 0.5% [Timoptic 0.5%] 1 drop OU BID #1 drops 07/02/19 - Diagnosis (1) Alcohol dependence with uncomplicated withdrawal Status: Acute (2) Drug-induced mood disorder Status: Acute (3) Anxiety and depression Status: Chronic (4) Insomnia Status: Chronic Qualifiers: Insomnia type: unspecified Qualified Code(s): G47.00 - Insomnia, unspecified (5) Nicotine dependence Status: Chronic Qualifiers: Nicotine product type: cigarettes Substance use status: in withdrawal Qualified Code(s): F17.213 - Nicotine dependence, cigarettes, with withdrawal (6) Substance induced mood disorder Status: Chronic - AMA Did Patient Leave Against Medical Advice: No
== END 2019-09-21 11:15 | disposition home or self-care (01) | DRG 774 ==
LOC: YASAS 14:54 → Y3N 19:35
PROVIDERS: ADMIT Allergy & Immunology; ATTEND Allergy & Immunology
PROC: HZ2ZZZZ Detoxification Services for Substance Abuse Treatment (ICD-10-PCS; principal; 2019-09-16)
DX: F10.230 Alcohol dependence with withdrawal, uncomplicated (principal); F14.20 Cocaine dependence, uncomplicated; F17.213 Nicotine dependence, cigarettes, with withdrawal; F19.24 Other psychoactive substance dependence with psychoactive substance-induced mood disorder; F41.9 Anxiety disorder, unspecified; F32.9 Major depressive disorder, single episode, unspecified; J45.909 Unspecified asthma, uncomplicated; K21.9 Gastro-esophageal reflux disease without esophagitis; G47.00 Insomnia, unspecified; M19.90 Unspecified osteoarthritis, unspecified site; Z98.1 Arthrodesis status; Z86.69 Personal history of other diseases of the nervous system and sense organs; Z88.0 Allergy status to penicillin; Z88.8 Allergy status to other drugs, medicaments and biological substances; Z91.013 Allergy to seafood; Z91.018 Allergy to other foods
CPT/HCPCS: 36415; 80053; 85027; 86593

== ENCOUNTER 2019-12-20 20:28 | Inpatient (IN) | payer OTHER ==
[2019-12-20 21:17] VITALS: BMI 26.7
--- NOTE | 2019-12-20 23:31 | HP ---
CIWA Score Nausea/Vomitin-Mild Nausea/No Vomiting Muscle Tremors: 4-Moderate,w/Arms Extend Anxiety: 4-Mod. Anxious/Guarded Agitation: 4-Moderately Restless Paroxysmal Sweats: 3 Orientation: 0-Oriented Tacttile Disturbances: 2-Mild Itch/Numbness/Burn Auditory Disturbances: 0-None Visual Disturbances: 0-None Headache: 2-Mild CIWA-Ar Total Score: 20 - Admission Criteria OASAS Guidelines: Admission for Medically Managed Detox: Requires at least one of the followin. CIWA greater than 12 2. Seizures within the past 24 hours 3. Delirium tremens within the past 24 hours 4. Hallucinations within the past 24 hours 5. Acute intervention needed for co occurring medical disorder 6. Acute intervention needed for co occurring psychiatric disorder 7. Severe withdrawal that cannot be handled at a lower level of care (continued vomiting, continued diarrhea, abnormal vital signs) requiring intravenous medication and/or fluids 8. Admitting History and Physical - Past Medical History ENT: Yes: Other (glaucoma, cataract) - Smoking History Smoking history: Never smoked Have you smoked in the past 12 months: No Aproximately how many cigarettes per day: 40 - Alcohol/Substance Use Hx Alcohol Use: Yes History of Substance Use: reports: None - Social History ADL: Independent History of Recent Travel: No Admission ROS [facility] Chief Complaint: c/o withdrawal sx's Allergies/Adverse Reactions: Allergies Allergy/AdvReac Type Severity Reaction Status Date / Time metoclopramide HCl Allergy Severe Swelling Verified 12/20/19 21:07 [From Reglan] Penicillins Allergy Severe Hives Verified 12/20/19 21:07 shellfish derived Allergy Severe Swelling Verified 12/20/19 21:07 orange juice AdvReac Mild Rash Verified 12/20/19 21:07 History of Present Illness: HERE FOR ALCOHOL DETOX. CLIENT REPORTS DAILY ALCOHOL INTAKE. 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 NOW HERE WITH C/O WITHDRAWAL SX'S. + BLACK OUTS, SEIZURES R /T ALCOHOL WITHDRAWAL. DENIES SI/AVH. MOST RECENT CLEAN TIME 1 MONTH. RELAPSING 2 MONTHS AGO. HOMELESS, UNEMPLOYED, DENIES LEGALS Exam Limitations: Physical Impairment (AMBULATES W/ CANE) - Ebola screening Have you traveled outside of the country in the last 21 days: No (N) Have you had contact with anyone from an Ebola affected area: No Do you have a fever: No - Review of Systems Constitutional: Chills, Loss of Appetite, Night Sweats, Changes in sleep EENT: reports: Blurred Vision (GLASSES), Dental Problems (MISSING TEETH), Other Respiratory: reports: Shortness of Breath, Other (CONGESTION) Cardiac: reports: No Symptoms Reported GI: reports: Nausea, Poor Appetite, Poor Fluid Intake : reports: Other (HESITANCY NON COMPLAINT WITH FLOMAX) Musculoskeletal: reports: Back Pain, Joint Pain Integumentary: reports: Sweating Neuro: reports: Headache, Seizure, Tremors, Unsteady Gait (AMBUALTES WITH CANE) Endocrine: reports: No Symptoms Reported Hematology: reports: No Symptoms Reported Psychiatric: reports: Orientated x3, Anxious, Depressed (DENIES SI) Other Systems: Reviewed and Negative Patient History - Patient Medical History Hx Anemia: No Hx Asthma: No Hx Chronic Obstructive Pulmonary Disease (COPD): Yes Hx Cancer: No Hx Cardiac Disorders: No Hx Congestive Heart Failure: No Hx Hypertension: No Hx Hypercholesterolemia: No Hx Pacemaker: No HX Cerebrovascular Accident: No Hx Seizures: No Hx Dementia: No Hx Diabetes: No Hx Gastrointestinal Disorders: No Hx Liver Disease: No Hx Genitourinary Disorders: No Hx Sexually Transmitted Disorders: No Hx Renal Disease (ESRD): No Hx Thyroid Disease: No Hx Human Immunodeficiency Virus (HIV): No (05/14 negative ) Hx Hepatitis C: No Hx Depression: Yes Hx Suicide Attempt: No (Denies suicidal ideation at this time) Hx Bipolar Disorder: No Hx Schizophrenia: Yes - Patient Surgical History Past Surgical History: Yes Hx Neurologic Surgery: Yes (C-SPINE FUSION IN 2016) Hx Cataract Extraction: No Hx Cardiac Surgery: No Hx Lung Surgery: No Hx Breast Surgery: No Hx Breast Biopsy: No Hx Abdominal Surgery: No Hx Appendectomy: No Hx Cholecystectomy: No Hx Genitourinary Surgery: No Hx Section: No Hx Orthopedic Surgery: Yes (Sx bilateral wrist and R ankle sx; ON THE NECK) Other Surgical History: HE FELL DOWN 4 DAYS AGO AND INJURED THE SCALP - STAPLED Anesthesia Reaction: No - PPD History Previous Implant?: Yes Documented Results: Negative w/proof Implanted On Prior R Admission?: Yes Date: 06/05/18 Results: 0 MM PPD to be Administered?: Yes - Smoking Cessation Smoking history: Current every day smoker Have you smoked in the past 12 months: No Aproximately how many cigarettes per day: 40 Cigars Per Day: 0 Hx Chewing Tobacco Use: No Initiated information on smoking cessation: Yes 'Breaking Loose' booklet given: 12/20/19 - Substance & Tx. History Hx Alcohol Use: Yes Hx Substance Use: Yes Substance Use Type: Alcohol Hx Substance Use Treatment: Yes ([facility]) - Substances abused Alcohol Substance route: Oral Frequency: Daily Amount used: 3pints/day Age of first use: 14 Date of last use: 12/20/19 (2 PINTS) Admission Physical Exam S - Vital Signs Vital Signs: Vital Signs - 24 hr 12/20/19 21:12 Temperature 98.1 F Pulse Rate 90 Respiratory 18 Rate Blood Pressure 123/58 L - Physical General Appearance: Yes: Moderate Distress, Alcohol on Breath, Tremorous, Anxious HEENTM: Yes: EOMI, Normocephalic, Normal Voice, MARISOL, Pharynx Normal, Nasal Congestion, Other (missing teeth) Respiratory: Yes: Chest Non-Tender, Lungs Clear, Normal Breath Sounds, No Respiratory Distress, No Accessory Muscle Use Neck: Yes: No masses,lesions,Nodules, Supple, Trachea in good position Breast: Yes: Breasts Symetrical Cardiology: Yes: Regular Rhythm, Regular Rate, S1, S2 Abdominal: Yes: Normal Bowel Sounds, Non Tender, Soft Genitourinary: Yes: Within Normal Limits Back: Yes: Within Normal Limits Musculoskeletal: Yes: Joint Stiffness (neck, back), Other (unsteady gait ambualtes with cane) Extremities: Yes: Non-Tender, Tremors 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: Yes: Fully Oriented, Alert, Motor Strength 5/5, Depressed Affect Integumentary: Yes: Dry, Warm Lymphatic: Yes: Within Normal Limits - Diagnostic (1) Alcohol dependence with uncomplicated withdrawal Current Visit: Yes Status: Acute (2) Alcohol intoxication Current Visit: Yes Status: Acute Qualifiers: Complication of substance-induced condition: uncomplicated Qualified Code(s ): F10.920 - Alcohol use, unspecified with intoxication, uncomplicated (3) Alcohol-induced sleep disorder Current Visit: Yes Status: Chronic (4) Drug-induced mood disorder Current Visit: Yes Status: Chronic (5) Alcohol-induced mood disorder Current Visit: Yes Status: Suspected (6) Arthritis Current Visit: Yes Status: Chronic (7) BPH (benign prostatic hypertrophy) Current Visit: Yes Status: Chronic Qualifiers: Lower urinary tract symptom presence: symptoms absent Qualified Code(s): N40.0 - Benign prostatic hyperplasia without lower urinary tract symptoms Comment: Has not seen a provider since initiation of flomax (8) Cataract Current Visit: Yes Status: Chronic Qualifiers: Cataract type: age-related (9) Chronic low back pain Current Visit: Yes Status: Chronic Qualifiers: Back pain laterality: unspecified Sciatica presence: unspecified whether sciatica present Qualified Code(s): M54.5 - Low back pain; G89.29 - Other chronic pain (10) Chronic neck pain Current Visit: Yes Status: Chronic (11) Gastroesophageal reflux disease Current Visit: Yes Status: Chronic (12) Glaucoma of both eyes Current Visit: Yes Status: Chronic Qualifiers: Glaucoma type: primary angle-closure Primary angle closure glaucoma type: chronic Glaucoma stage: mild stage Qualified Code(s): H40.2231 - Chronic angle-closure glaucoma, bilateral, mild stage Comment: Last eye exam September 2018 (13) History of neck surgery Current Visit: Yes Status: Chronic (14) History of schizoaffective disorder Current Visit: Yes Status: Chronic Comment: Never adherent to OPD care. (15) Nicotine dependence Current Visit: Yes Status: Chronic Qualifiers: Nicotine product type: cigarettes Substance use status: in withdrawal Qualified Code(s): F17.213 - Nicotine dependence, cigarettes, with withdrawal (16) Non-compliance with treatment Current Visit: Yes Status: Chronic (17) Substance induced mood disorder Current Visit: Yes Status: Suspected (18) Use of cane as ambulatory aid Current Visit: Yes Status: Chronic Cleared for Admission S - Detox or Rehab [facility] Level of Care: Medically Managed Detox Regimen/Protocol: Librium Claeared for Rehab Admission: No Breathalyzer - Breathalyzer Breathalyzer: 0.155 Urine Drug Screen - Test Device Lot number: [id number] Expiration date: 06/25/21 - Control Is test valid?: Yes - Results Drug screen NEGATIVE: No Urine drug screen results: BZO-Benzodiazepines Inpatient Rehab Admission - Rehab Decision to Admit Inpatient rehab admission?: No
[2019-12-20] MEDS ORDERED: IBUPROFEN 400 MG TABLET (FP) PO PRN (23:36)
[2019-12-20] MEDS ORDERED: guaiFENesin 200 MG/10 ML 10 ML UNIT-DOSE CUPS PO PRN (23:36)
[2019-12-20] MEDS ORDERED: BISMUTH SUBSALICYLATE 524 MG/30 ML UD PO PRN (23:36)
[2019-12-20] MEDS ORDERED: MAGNESIUM HYDROX 2400MG/30ML ORAL SUSPENSION 30 ML CUP PO PRN (23:36)
[2019-12-20] MEDS ORDERED: MENTHOL/PHENOL 1 EACH UD MM PRN (23:36)
[2019-12-20] MEDS ORDERED: MAG HYDROX/AL HYDROX/SIMETH 30 ML UNIT-DOSE CUP PO PRN (23:36)
[2019-12-20] MEDS ORDERED: P-EPHED 60MG/TRIPROLIDI 2.5MG TABLET PO PRN (23:36)
[2019-12-20] MEDS ORDERED: ACETAMINOPHEN 325 MG TABLET (FP) PO PRN (23:36)
[2019-12-20] MEDS ORDERED: MAGNESIUM CITRATE 300 ML BOTTLE PO PRN (23:36)
[2019-12-20] MEDS ORDERED: DICYCLOMINE HCL 10 MG CAPSULE PO PRN (23:36)
[2019-12-20] MEDS ORDERED: NICOTINE POLACRILEX 4 MG GUM BUC PRN (23:36)
[2019-12-20] MEDS ORDERED: ONDANSETRON *ODT* 4 MG TABLET SL PRN (23:36)
[2019-12-20] MEDS ORDERED: chlordiazePOXIDE HCL 25 MG CAPSULE PO PRN (23:36)
[2019-12-20] MEDS ORDERED: COLLOIDAL OATMEAL 1 BAR EACH TP PRN (23:52)
[2019-12-20] MEDS ORDERED: SODIUM CHLORIDE NASAL SPRAY 44 ML BOTTLE NS PRN (23:55)
[2019-12-21] MEDS: chlordiazePOXIDE HCL 25 MG CAPSULE PO SCH ×5 (01:19→23:08)
[2019-12-21] MEDS ORDERED: TRIMETHOBENZAMIDE HCL 200MG/2ML INJ IM ONE (07:28)
[2019-12-21] MEDS: FAMOTIDINE 20 MG TABLET PO SCH ×2 (10:34→23:08)
[2019-12-21] MEDS: PRENATAL VITAMINS W/ FOLIC ACID TABLET (FP) PO SCH (10:34)
[2019-12-21] MEDS: METHOCARBAMOL 500 MG TABLET PO PRN ×2 (10:35→23:11)
[2019-12-21] MEDS: NICOTINE 21 MG/24 HOURS TOPICAL PATCH TD SCH (10:35)
--- NOTE | 2019-12-21 11:15 | CONSULT ---
[facility] Psychiatric Consult - Data Date of interview: 12/21/19 Admission source: [facility] Identifying data: Patient is a 59 year old single male, without children, unemployed, resides with a friend, and is supported with [facility]. This is one of multiple admissions for patient. Patient admitted to for alcohol dependence. Substance Abuse History: Smoking Cessation. Smoking history: Current every day smoker. Have you smoked in the past 12 months: No. Aproximately how many cigarettes per day: 40. Cigars Per Day: 0. Hx Chewing Tobacco Use: No. Initiated information on smoking cessation: Yes. 'Breaking Loose' booklet given : 12/20/19. - Substance & Tx. History. Hx Alcohol Use: Yes. Hx Substance Use : Yes. Substance Use Type: Alcohol. Hx Substance Use Treatment: Yes ([facility]). - Substances abused. Alcohol. Substance route: Oral. Frequency: Daily. Amount used: 3pints/day. Age of first use: 14. Date of last use: 12/20/19 (2 PINTS) Medical History: Medical profile is remarkable for GERD, arthritis, glaucoma, cataracts (bilateral), withdrawal seizures, peptic ulcer disease, cyst of left wrist, cervical fusion (consequence of injuries sustained in a fall while riding an escalator 3-4 years ago), BPH (benign prostatic hyperplasia), past history of orthosurgery for fracture of right ankle (hardware in situ) and surgery for laceration of right wrist (glass). History of frequent falls. Patient uses a cane for ambulation. Psychiatric History: Mr. Mcrae reports history of one psychiatric hospitalization approximately 10 years ago for depression at [facility]. As per Dr. Thao note from 10/2019 patient has a history multiple psychiatric hospitalizations ([facility], [facility], [facility], [facility] in [place]). 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 Mr. Mcrae is not currently provided with outpatient psychiatric care. States that he receives trazodone 100mg for insomnia from [facility] when he is admitted for detox. Patient denies history of suicide attempt. At present patient denies auditory/visual hallucinations, suicidal/homicidal ideation. Physical/Sexual Abuse/Trauma History: denies. Mental Status Exam - Mental Status Exam Alert and Oriented to: Time, Place, Person Cognitive Function: Good Patient Appearance: Well Groomed Mood: Withdrawn Affect: Mood Congruent Patient Behavior: Fatigued, Cooperative Speech Pattern: Appropriate Voice Loudness: Normal Thought Process: Intact, Goal Oriented Thought Disorder: Not Present Hallucinations: Denies Suicidal Ideation: Denies Homicidal Ideation: Denies Insight/Judgement: Poor Sleep: Poorly Appetite: Fair Muscle strength/Tone: Normal Gait/Station: Normal Psychiatric Findings - Problem List ([place] 1, 2,3) (1) Alcohol use disorder Current Visit: Yes Status: Acute (2) Alcohol dependence with uncomplicated withdrawal Current Visit: Yes Status: Acute (3) Alcohol-induced sleep disorder Current Visit: No Status: Chronic (4) History of schizoaffective disorder Current Visit: No Status: Chronic Comment: Never adherent to OPD care. - Initial Treatment Plan Initial Treatment Plan: Psychoeducation provided. Detoxification in progress. Will order Trazodone 100mg HS (stated that trazodone 50mg is not effective for insomnia). Benefits and side effects discussed. Verbal consent given.
[2019-12-21 11:19] LABS: HEMATOCRIT 33.8 % (35.4-49); HEMOGLOBIN 11.5 GM/dL (11.7-16.9); MCHC 33.9 g/dl (32.0-35.9); MEAN CELL VOLUME 88.6 fl (80-96); MEAN PLT VOLUME 9.4 fl (7.5-11.1); PLATELET COUNT 287 K/MM3 (134-434); RBC 3.82 M/mm3 (4.00-5.60); RDW 14.9 % (11.9-15.9)
[2019-12-21 11:27] LABS: ALBUMIN 3.7 g/dl (3.4-5.0); BILIRUBIN,TOTAL 0.4 mg/dL (0.2-1); BLOOD UREA NITROGEN 7.7 mg/dL (7-18); CREATININE 0.8 mg/dL (0.55-1.3); TOT PROT 6.8 g/dl (6.4-8.2)
[2019-12-21] MEDS: TIMOLOL 0.5% OPHTHALMIC SOL 5 ML BOTTLE OU SCH ×2 (12:24→23:13)
--- NOTE | 2019-12-21 14:01 | PN ---
[facility] CIWA - CIWA Score Nausea/Vomitin-No Nausea/No Vomiting Muscle Tremors: 3 Anxiety: 5 Agitation: 2 Paroxysmal Sweats: 2 (Hot/Cold Sensations.) Orientation: 0-Oriented Tacttile Disturbances: 0-None Auditory Disturbances: 0-None Visual Disturbances: 2-Mild Sensitivity Headache: 0-None Present CIWA-Ar Total Score: 14 S Progress Note (SOAP) Subjective: Tremors, Anxious, Hot/Cold Sensations, Body Aches. Objective: PATIENT A & O X 3, OBSERVED AMBULATING ON DETOX UNIT WITH ASSISTANCE OF A CANE. IN NO ACUTE DISTRESS. 12/21/19 14:00 Vital Signs Temperature 97.7 F 12/21/19 10:00 Pulse Rate 83 12/21/19 10:00 Respiratory Rate 18 12/21/19 10:00 Blood Pressure 147/90 12/21/19 10:00 O2 Sat by Pulse Oximetry (%) Laboratory Tests 12/21/19 12/21/19 08:00 08:00 WBC 4.0 RBC 3.82 L Hgb 11.5 L Hct 33.8 L MCV 88.6 MCH 30.0 MCHC 33.9 RDW 14.9 Plt Count 287 D MPV 9.4 Sodium 138 Potassium 4.0 Chloride 104 Carbon Dioxide 29 Anion Gap 6 L BUN 7.7 Creatinine 0.8 Est GFR (CKD-EPI)AfAm 111.74 Est GFR (CKD-EPI)NonAf 96.41 Random Glucose 83 Calcium 9.0 Total Bilirubin 0.4 AST 25 ALT 25 Alkaline Phosphatase 80 Total Protein 6.8 Albumin 3.7 LABS NOTED. DETOX ADMISSION RPR RESULT NOTED. 12/21/19 14:03 Assessment: 12/21/19 14:00 WITHDRAWAL SYMPTOMS. ANEMIA. 12/21/19 14:01 Plan: CONTINUE DETOX. PATIENT IS CURRENTLY RECEIVING DAILY MVI CONTAINING B VITAMINS AND IRON WHILE ADMITTED FOR DETOX.
[2019-12-21] MEDS: TAMSULOSIN HCL 0.4 MG CAP PO SCH (14:12)
[2019-12-21] MEDS: THIAMINE HCL 100 MG TABLET (FP) PO SCH (23:08)
[2019-12-21] MEDS: traZODone HCL 100 MG TABLET (FP) PO SCH (23:08)
[2019-12-21] MEDS: MELATONIN 5 MG TABLETS PO PRN (23:10)
[2019-12-21] MEDS: LATANOPROST 0.005% OPHTH SOLN 2.5ML BOTTLE OU SCH (23:12)
[2019-12-22] MEDS: chlordiazePOXIDE HCL 25 MG CAPSULE PO SCH ×4 (06:19→22:30)
[2019-12-22] MEDS: NICOTINE 21 MG/24 HOURS TOPICAL PATCH TD SCH (10:37)
[2019-12-22] MEDS: FAMOTIDINE 20 MG TABLET PO SCH ×2 (10:37→22:31)
[2019-12-22] MEDS: TAMSULOSIN HCL 0.4 MG CAP PO SCH (10:37)
[2019-12-22] MEDS: TIMOLOL 0.5% OPHTHALMIC SOL 5 ML BOTTLE OU SCH ×2 (10:38→17:38)
[2019-12-22] MEDS: PRENATAL VITAMINS W/ FOLIC ACID TABLET (FP) PO SCH (10:38)
[2019-12-22] MEDS: hydrOXYzine PAMOATE 25 MG CAPSULE (FP) PO PRN (10:39)
--- NOTE | 2019-12-22 17:04 | PN ---
[facility] CIWA - CIWA Score Nausea/Vomitin-Mild Nausea/No Vomiting Muscle Tremors: 3 Anxiety: 2 Agitation: 2 Paroxysmal Sweats: 3 Orientation: 0-Oriented Tacttile Disturbances: 0-None Auditory Disturbances: 0-None Visual Disturbances: 0-None Headache: 0-None Present CIWA-Ar Total Score: 11 [facility] Progress Note (SOAP) Subjective: Agitated, chills, tremor, sweating, interrupted sleep. Patient complained about not getting his eye drops the way he's supposed to get it. He reported that his Timolol should be in the morning and again at 6pm and that he would like to change it to such timing because he is presently getting it in the morning and at night with his Xalatan eye drop. Objective: 12/22/19 17:01 Last Vital Signs Temp Pulse Resp BP Pulse Ox 97.1 F L 78 20 142/91 12/22/19 14:37 12/22/19 14:37 12/22/19 14:37 12/22/19 14:37 Elevated b/p noted: denies htn, not on medication Laboratory Tests 12/21/19 12/21/19 12/21/19 08:00 08:00 08:00 WBC 4.0 RBC 3.82 L Hgb 11.5 L Hct 33.8 L MCV 88.6 MCH 30.0 MCHC 33.9 RDW 14.9 Plt Count 287 D MPV 9.4 Sodium 138 Potassium 4.0 Chloride 104 Carbon Dioxide 29 Anion Gap 6 L BUN 7.7 Creatinine 0.8 Est GFR (CKD-EPI)AfAm 111.74 Est GFR (CKD-EPI)NonAf 96.41 Random Glucose 83 Calcium 9.0 Total Bilirubin 0.4 AST 25 ALT 25 Alkaline Phosphatase 80 Total Protein 6.8 Albumin 3.7 RPR Titer Nonreactive Labs reviewed: mild anemia noted Assessment: 12/22/19 17:02 Withdrawal sxs Elevated b/p and mild anemia noted Plan: Continue detox Encouraged PO water intake Timolol eye drops changed to 10am and 6pm as per patient's request Elevated b/p: denies htn, could be r/t withdrawal, monitor b/p Mild anemia: most likely due to chronic alcoholism, on vitamin, follow up with PCP for management
[2019-12-22] MEDS: ALBUTEROL SO4 HFA INHALER IH PRN (17:34)
[2019-12-22] MEDS: METHOCARBAMOL 500 MG TABLET PO PRN ×2 (17:35→22:34)
[2019-12-22] MEDS: ACETAMINOPHEN 325 MG TABLET (FP) PO PRN (17:35)
[2019-12-22] MEDS: traZODone HCL 100 MG TABLET (FP) PO SCH (22:30)
[2019-12-22] MEDS: THIAMINE HCL 100 MG TABLET (FP) PO SCH (22:31)
[2019-12-22] MEDS: MELATONIN 5 MG TABLETS PO PRN (22:32)
[2019-12-23] MEDS ORDERED: chlordiazePOXIDE HCL 10 MG CAPSULE PO PRN
[2019-12-23] MEDS: LATANOPROST 0.005% OPHTH SOLN 2.5ML BOTTLE OU SCH ×2 (00:22→23:42)
[2019-12-23] MEDS: chlordiazePOXIDE HCL 10 MG CAPSULE PO SCH ×4 (06:58→23:32)
[2019-12-23] MEDS: NICOTINE 21 MG/24 HOURS TOPICAL PATCH TD SCH (10:45)
[2019-12-23] MEDS: PRENATAL VITAMINS W/ FOLIC ACID TABLET (FP) PO SCH (10:46)
[2019-12-23] MEDS: TAMSULOSIN HCL 0.4 MG CAP PO SCH (10:46)
[2019-12-23] MEDS: FAMOTIDINE 20 MG TABLET PO SCH ×2 (10:46→23:32)
[2019-12-23] MEDS: TIMOLOL 0.5% OPHTHALMIC SOL 5 ML BOTTLE OU SCH ×2 (10:47→18:31)
[2019-12-23] MEDS: hydrOXYzine PAMOATE 25 MG CAPSULE (FP) PO PRN ×2 (10:48→17:06)
[2019-12-23] MEDS: ACETAMINOPHEN 325 MG TABLET (FP) PO PRN (10:50)
[2019-12-23] MEDS: ALBUTEROL SO4 HFA INHALER IH PRN (10:53)
[2019-12-23] MEDS: METHOCARBAMOL 500 MG TABLET PO PRN ×2 (11:37→23:38)
--- NOTE | 2019-12-23 13:35 | PN ---
[facility] CIWA - CIWA Score Nausea/Vomitin-No Nausea/No Vomiting Muscle Tremors: 3 Anxiety: 2 Agitation: 2 Paroxysmal Sweats: 2 Orientation: 0-Oriented Tacttile Disturbances: 0-None Auditory Disturbances: 0-None Visual Disturbances: 0-None Headache: 0-None Present CIWA-Ar Total Score: 9 [facility] Progress Note (SOAP) Subjective: sweats shakes interrupted sleep body aches dry eyes athletes foot Objective: 12/23/19 13:35 Vital Signs Temperature 98.1 F 12/23/19 13:13 Pulse Rate 85 12/23/19 13:13 Respiratory Rate 18 12/23/19 13:13 Blood Pressure 95/56 L 12/23/19 13:13 O2 Sat by Pulse Oximetry (%) Laboratory Tests 12/21/19 12/21/19 12/21/19 08:00 08:00 08:00 WBC 4.0 RBC 3.82 L Hgb 11.5 L Hct 33.8 L MCV 88.6 MCH 30.0 MCHC 33.9 RDW 14.9 Plt Count 287 D MPV 9.4 Sodium 138 Potassium 4.0 Chloride 104 Carbon Dioxide 29 Anion Gap 6 L BUN 7.7 Creatinine 0.8 Est GFR (CKD-EPI)AfAm 111.74 Est GFR (CKD-EPI)NonAf 96.41 Random Glucose 83 Calcium 9.0 Total Bilirubin 0.4 AST 25 ALT 25 Alkaline Phosphatase 80 Total Protein 6.8 Albumin 3.7 RPR Titer Nonreactive aaox3 ambulating no acute distress Assessment: 12/23/19 13:43 withdrawals Plan: continue detox tinactin cream ocean spray asthma pump artificial tears
[2019-12-23] MEDS: TOLNAFTATE 1% CREAM 15 GM TUBE TP SCH ×2 (14:03→23:42)
[2019-12-23] MEDS: THIAMINE HCL 100 MG TABLET (FP) PO SCH (23:32)
[2019-12-23] MEDS: traZODone HCL 100 MG TABLET (FP) PO SCH (23:32)
[2019-12-23] MEDS: MELATONIN 5 MG TABLETS PO PRN (23:38)
[2019-12-23] MEDS: ARTIFICIAL TEARS (POLYVINYL ALCOHOL) OPTH DROPS OU PRN (23:42)
[2019-12-24] MEDS: chlordiazePOXIDE HCL 10 MG CAPSULE PO SCH ×2 (06:30→17:18)
[2019-12-24] MEDS: FAMOTIDINE 20 MG TABLET PO SCH ×2 (10:27→22:16)
[2019-12-24] MEDS: TAMSULOSIN HCL 0.4 MG CAP PO SCH (10:27)
[2019-12-24] MEDS: NICOTINE 21 MG/24 HOURS TOPICAL PATCH TD SCH (10:27)
[2019-12-24] MEDS: TIMOLOL 0.5% OPHTHALMIC SOL 5 ML BOTTLE OU SCH ×2 (10:27→17:18)
[2019-12-24] MEDS: PRENATAL VITAMINS W/ FOLIC ACID TABLET (FP) PO SCH (10:27)
[2019-12-24] MEDS: hydrOXYzine PAMOATE 25 MG CAPSULE (FP) PO PRN ×2 (10:28→22:19)
[2019-12-24] MEDS: TOLNAFTATE 1% CREAM 15 GM TUBE TP SCH ×2 (10:56→22:22)
--- NOTE | 2019-12-24 12:21 | PN ---
[facility] CIWA - CIWA Score Nausea/Vomitin-No Nausea/No Vomiting Muscle Tremors: 2 Anxiety: 1-Mildly Anxious Agitation: 2 Paroxysmal Sweats: No Perspiration Orientation: 0-Oriented Tacttile Disturbances: 0-None Auditory Disturbances: 0-None Visual Disturbances: 0-None Headache: 0-None Present CIWA-Ar Total Score: 5 [facility] Progress Note (SOAP) Subjective: agitation Objective: 12/24/19 12:21 Vital Signs Temperature 97.8 F 12/24/19 09:24 Pulse Rate 85 12/24/19 09:24 Respiratory Rate 19 12/24/19 09:24 Blood Pressure 121/72 12/24/19 09:24 O2 Sat by Pulse Oximetry (%) aaox3 ambulating no acute distress Assessment: 12/24/19 12:21 mild withdrawals Plan: continue detox d/c in am
[2019-12-24] MEDS: ACETAMINOPHEN 325 MG TABLET (FP) PO PRN (18:52)
[2019-12-24] MEDS: THIAMINE HCL 100 MG TABLET (FP) PO SCH (22:16)
[2019-12-24] MEDS: traZODone HCL 100 MG TABLET (FP) PO SCH (22:16)
[2019-12-24] MEDS: METHOCARBAMOL 500 MG TABLET PO PRN (22:18)
[2019-12-24] MEDS: LATANOPROST 0.005% OPHTH SOLN 2.5ML BOTTLE OU SCH (22:22)
[2019-12-25] MEDS: ARTIFICIAL TEARS (POLYVINYL ALCOHOL) OPTH DROPS OU PRN (00:40)
[2019-12-25] MEDS: ACETAMINOPHEN 325 MG TABLET (FP) PO PRN ×2 (01:10→07:00)
[2019-12-25] MEDS ORDERED: chlordiazePOXIDE HCL 10 MG CAPSULE PO ONE (05:00)
[2019-12-25] MEDS ORDERED: BENZOCAINE 20 % GEL TUBE MM PRN (09:12)
--- NOTE | 2019-12-25 09:16 | DS ---
[facility] Detox Discharge Summary Admission Date: 12/20/19 Discharge Date: 12/25/19 - History Present History: Alcohol Dependence, Cannabis Dependence, Cocaine Dependence - Physical Exam Results Vital Signs: Vital Signs Temperature 97.2 F L 12/25/19 07:32 Pulse Rate 90 12/25/19 07:32 Respiratory Rate 18 12/25/19 07:32 Blood Pressure 113/55 L 12/25/19 07:32 O2 Sat by Pulse Oximetry (%) Pertinent Admission Physical Exam Findings: Vital Signs Temperature 97.2 F L 12/25/19 07:32 Pulse Rate 90 12/25/19 07:32 Respiratory Rate 18 12/25/19 07:32 Blood Pressure 113/55 L 12/25/19 07:32 O2 Sat by Pulse Oximetry (%) Laboratory Tests 12/21/19 12/21/19 12/21/19 08:00 08:00 08:00 WBC 4.0 RBC 3.82 L Hgb 11.5 L Hct 33.8 L MCV 88.6 MCH 30.0 MCHC 33.9 RDW 14.9 Plt Count 287 D MPV 9.4 Sodium 138 Potassium 4.0 Chloride 104 Carbon Dioxide 29 Anion Gap 6 L BUN 7.7 Creatinine 0.8 Est GFR (CKD-EPI)AfAm 111.74 Est GFR (CKD-EPI)NonAf 96.41 Random Glucose 83 Calcium 9.0 Total Bilirubin 0.4 AST 25 ALT 25 Alkaline Phosphatase 80 Total Protein 6.8 Albumin 3.7 RPR Titer Nonreactive aaox3 ambulating no acute distress - Treatment Hospital Course: Detox Protocol Followed, Detoxed Safely, Responded well, Discharged Condition Good, Rehab Referral Accepted Patient has Accepted a Rehab Referral to: [facility] - Medication Discharge Medications: Ambulatory Orders traZODone HCL [Desyrel -] 100 mg PO HS #30 tablet 10/31/18 Albuterol Sulfate Inhaler - [Ventolin HFA Inhaler -] 2 inh PO Q4H PRN #1 inhaler 07/02/19 Latanoprost 0.005% Eye Drops [Xalatan 0.005% Eye Drops -] 1 drop OU HS #1 bottle 07/02/19 Tamsulosin HCl [Flomax -] 0.4 mg PO DAILY #30 cap.er.24h 07/02/19 Timolol 0.5% [Timoptic 0.5%] 1 drop OU BID #1 drops 07/02/19 - Diagnosis (1) Alcohol dependence with uncomplicated withdrawal Current Visit: Yes Status: Chronic (2) Arthritis Current Visit: Yes Status: Chronic (3) BPH (benign prostatic hypertrophy) Current Visit: Yes Status: Chronic Qualifiers: Lower urinary tract symptom presence: symptoms absent Qualified Code(s): N40.0 - Benign prostatic hyperplasia without lower urinary tract symptoms (4) Cataract Current Visit: Yes Status: Chronic Qualifiers: Cataract type: age-related (5) Chronic low back pain Current Visit: Yes Status: Chronic Qualifiers: Back pain laterality: unspecified Sciatica presence: unspecified whether sciatica present Qualified Code(s): M54.5 - Low back pain; G89.29 - Other chronic pain (6) Chronic neck pain Current Visit: Yes Status: Chronic (7) Drug-induced mood disorder Current Visit: Yes Status: Chronic (8) Gastroesophageal reflux disease Current Visit: Yes Status: Chronic (9) Glaucoma of both eyes Current Visit: Yes Status: Chronic Qualifiers: Glaucoma type: primary angle-closure Primary angle closure glaucoma type: chronic Glaucoma stage: mild stage Qualified Code(s): H40.2231 - Chronic angle-closure glaucoma, bilateral, mild stage (10) History of neck surgery Current Visit: Yes Status: Chronic (11) Nicotine dependence Current Visit: Yes Status: Chronic Qualifiers: Nicotine product type: cigarettes Substance use status: in withdrawal Qualified Code(s): F17.213 - Nicotine dependence, cigarettes, with withdrawal (12) Use of cane as ambulatory aid Current Visit: Yes Status: Chronic (13) Alcohol-induced mood disorder Current Visit: Yes Status: Suspected (14) Substance induced mood disorder Current Visit: Yes Status: Suspected (15) Disorder of the skin and subcutaneous tissue, unspecified Current Visit: No Status: Acute (16) Syncope Current Visit: No Status: Acute (17) Weight loss Current Visit: No Status: Acute (18) Alcohol-induced sleep disorder Current Visit: No Status: Chronic (19) Anxiety and depression Current Visit: No Status: Chronic (20) Asthma Current Visit: No Status: Chronic Qualifiers: Asthma severity: mild Asthma persistence: intermittent Asthma complication type: with status asthmaticus Qualified Code(s): J45.22 - Mild intermittent asthma with status asthmaticus (21) Cannabis dependence Current Visit: No Status: Chronic (22) Cocaine dependence Current Visit: No Status: Chronic Qualifiers: Substance use status: uncomplicated Qualified Code(s): F14.20 - Cocaine dependence, uncomplicated (23) Depression with anxiety Current Visit: No Status: Chronic (24) Gastric ulcer Current Visit: No Status: Chronic Qualifiers: Gastric ulcer chronicity: chronic (25) Glaucoma Current Visit: No Status: Chronic Qualifiers: Glaucoma type: unspecified Laterality: unspecified laterality Qualified Code(s): H40.9 - Unspecified glaucoma (26) History of schizoaffective disorder Current Visit: No Status: Chronic (27) Insomnia Current Visit: No Status: Chronic Qualifiers: Insomnia type: unspecified Qualified Code(s): G47.00 - Insomnia, unspecified (28) Personal history of other diseases of the musculoskeletal system and connective tissue Current Visit: No Status: Chronic (29) Schizoaffective disorder Current Visit: No Status: Chronic (30) Schizophrenia, undifferentiated Current Visit: No Status: Chronic (31) Alcohol related seizure Current Visit: No Status: Resolved (32) Status post cataract surgery Current Visit: No Status: Resolved (33) Paranoid schizophrenia Current Visit: No Status: Ruled-out - AMA Did Patient Leave Against Medical Advice: No
[2019-12-25 09:29] VITALS: BP 87/55; PULSE 91; TEMP 96.4
[2019-12-25] MEDS: TAMSULOSIN HCL 0.4 MG CAP PO SCH (09:48)
[2019-12-25] MEDS: METHOCARBAMOL 500 MG TABLET PO PRN (09:48)
[2019-12-25] MEDS: NICOTINE 21 MG/24 HOURS TOPICAL PATCH TD SCH (09:50)
[2019-12-25] MEDS ORDERED: METHYL SALICYLATE/MENTHOL OINT 30 GM TUBE TP SCH (10:00)
[2019-12-25] MEDS ORDERED: LIDOCAINE 5% TOPICAL PATCH TP SCH (10:00)
[2019-12-25] MEDS ORDERED: LIDOCAINE PATCH REMOVAL MC SCH (22:00)
== END 2019-12-25 09:59 | disposition other institution (70) | DRG 774 ==
LOC: YASAS 20:28 → Y6N 23:31
PROVIDERS: ADMIT Allergy & Immunology; ATTEND Allergy & Immunology
PROC: HZ2ZZZZ Detoxification Services for Substance Abuse Treatment (ICD-10-PCS; principal; 2019-12-20)
DX: F10.230 Alcohol dependence with withdrawal, uncomplicated (principal); F10.24 Alcohol dependence with alcohol-induced mood disorder; F10.282 Alcohol dependence with alcohol-induced sleep disorder; F14.20 Cocaine dependence, uncomplicated; F12.20 Cannabis dependence, uncomplicated; F17.210 Nicotine dependence, cigarettes, uncomplicated; F19.24 Other psychoactive substance dependence with psychoactive substance-induced mood disorder; F41.9 Anxiety disorder, unspecified; F32.9 Major depressive disorder, single episode, unspecified; F25.9 Schizoaffective disorder, unspecified; D64.9 Anemia, unspecified; G47.00 Insomnia, unspecified; N40.0 Benign prostatic hyperplasia without lower urinary tract symptoms; M19.90 Unspecified osteoarthritis, unspecified site; H40.2231 Chronic angle-closure glaucoma, bilateral, mild stage; M54.5 Low back pain; G89.29 Other chronic pain; K21.9 Gastro-esophageal reflux disease without esophagitis; L98.9 Disorder of the skin and subcutaneous tissue, unspecified; R63.4 Abnormal weight loss; K25.9 Gastric ulcer, unspecified as acute or chronic, without hemorrhage or perforation; R03.0 Elevated blood-pressure reading, without diagnosis of hypertension; R26.2 Difficulty in walking, not elsewhere classified; Z99.89 Dependence on other enabling machines and devices; Z86.69 Personal history of other diseases of the nervous system and sense organs; Z91.013 Allergy to seafood; Z91.018 Allergy to other foods; Z88.0 Allergy status to penicillin; Z88.8 Allergy status to other drugs, medicaments and biological substances; Z91.19 Patient's noncompliance with other medical treatment and regimen
CPT/HCPCS: 36415; 80053; 85027; 86593

== ENCOUNTER 2019-12-25 10:08 | Inpatient (IN) | payer OTHER ==
--- NOTE | 2019-12-25 10:14 | HP ---
[facility] Rehab Assess/Revision - Admission History Ad[facility]hab [facility] - Findings Detox History & Physical reviewed: Yes Concur with findings: Yes Inpatient Rehab Admission - Rehab Decision to Admit Inpatient rehab admission?: Yes - Initial Determination Are CD services needed?: Yes Free of communicable disease: Yes Not in need of hospitalization: Yes - Rehab Admission Criteria Previous failed treatment: Yes Poor recovery environment: Yes Comorbidities: Yes Lacks judgement: Yes Patient is meeting Inpatient Rehab admission criteria:: Yes
[2019-12-25] MEDS ORDERED: MENTHOL/PHENOL 1 EACH UD MM PRN (11:37)
[2019-12-25] MEDS ORDERED: MAGNESIUM CITRATE 300 ML BOTTLE PO PRN (11:37)
[2019-12-25] MEDS ORDERED: NICOTINE POLACRILEX 4 MG GUM BUC PRN (11:37)
[2019-12-25] MEDS ORDERED: IBUPROFEN 400 MG TABLET (FP) PO PRN (11:37)
[2019-12-25] MEDS ORDERED: LOPERAMIDE HCL 2 MG CAPSULE PO PRN (11:37)
[2019-12-25] MEDS ORDERED: P-EPHED 60MG/TRIPROLIDI 2.5MG TABLET PO PRN (11:37)
[2019-12-25] MEDS ORDERED: MAGNESIUM HYDROX 2400MG/30ML ORAL SUSPENSION 30 ML CUP PO PRN (11:37)
[2019-12-25] MEDS ORDERED: guaiFENesin 200 MG/10 ML 10 ML UNIT-DOSE CUPS PO PRN (11:37)
[2019-12-25] MEDS ORDERED: TETRAHYDROZOLINE HCL EYE DROPS OU PRN (11:44)
[2019-12-25] MEDS: MAG HYDROX/AL HYDROX/SIMETH 30 ML UNIT-DOSE CUP PO PRN (18:51)
[2019-12-25] MEDS: hydrOXYzine PAMOATE 50 MG CAPSULE (FP) PO PRN (18:51)
[2019-12-25] MEDS: ACETAMINOPHEN 325 MG TABLET (FP) PO PRN (18:52)
[2019-12-25] MEDS: LATANOPROST 0.005% OPHTH SOLN 2.5ML BOTTLE OU SCH (21:43)
[2019-12-25] MEDS: TIMOLOL 0.5% OPHTHALMIC SOL 5 ML BOTTLE OU SCH (21:43)
[2019-12-25] MEDS: METHYL SALICYLATE/MENTHOL OINT 30 GM TUBE TP SCH (21:43)
[2019-12-25] MEDS: LIDOCAINE PATCH REMOVAL MC SCH (21:43)
[2019-12-25] MEDS: MELATONIN 5 MG TABLETS PO PRN (21:44)
[2019-12-25] MEDS: THIAMINE HCL 100 MG TABLET (FP) PO SCH (21:44)
[2019-12-25] MEDS: TOLNAFTATE 1% CREAM 15 GM TUBE TP SCH (21:48)
[2019-12-26] MEDS: LIDOCAINE 5% TOPICAL PATCH TP SCH (09:36)
[2019-12-26] MEDS: NICOTINE 21 MG/24 HOURS TOPICAL PATCH TD SCH (09:36)
[2019-12-26] MEDS: PRENATAL VITAMINS W/ FOLIC ACID TABLET (FP) PO SCH (09:36)
[2019-12-26] MEDS: TIMOLOL 0.5% OPHTHALMIC SOL 5 ML BOTTLE OU SCH ×2 (09:36→21:12)
[2019-12-26] MEDS: hydrOXYzine PAMOATE 50 MG CAPSULE (FP) PO PRN (09:37)
[2019-12-26] MEDS: SODIUM CHLORIDE NASAL SPRAY 44 ML BOTTLE NS PRN (09:38)
[2019-12-26] MEDS: BENZOCAINE 20 % GEL TUBE MM PRN (09:38)
[2019-12-26] MEDS: TOLNAFTATE 1% CREAM 15 GM TUBE TP SCH ×2 (09:38→21:15)
[2019-12-26] MEDS: ACETAMINOPHEN 325 MG TABLET (FP) PO PRN ×2 (09:40→21:13)
[2019-12-26] MEDS: ALBUTEROL SO4 8 GM HFA INHALER IH PRN (09:42)
[2019-12-26] MEDS ORDERED: FLU VACCINE QUAD 60 MCG/0.5 ML (MDV 19-20) IM ONE (12:00)
[2019-12-26] MEDS: METHYL SALICYLATE/MENTHOL OINT 30 GM TUBE TP SCH (21:12)
[2019-12-26] MEDS: LATANOPROST 0.005% OPHTH SOLN 2.5ML BOTTLE OU SCH (21:12)
[2019-12-26] MEDS: LIDOCAINE PATCH REMOVAL MC SCH (21:12)
[2019-12-26] MEDS: THIAMINE HCL 100 MG TABLET (FP) PO SCH (21:12)
[2019-12-26] MEDS: MELATONIN 5 MG TABLETS PO PRN (21:12)
[2019-12-27] MEDS: NICOTINE 21 MG/24 HOURS TOPICAL PATCH TD SCH (10:42)
[2019-12-27] MEDS: PRENATAL VITAMINS W/ FOLIC ACID TABLET (FP) PO SCH (10:42)
[2019-12-27] MEDS: LIDOCAINE 5% TOPICAL PATCH TP SCH (10:43)
[2019-12-27] MEDS: TIMOLOL 0.5% OPHTHALMIC SOL 5 ML BOTTLE OU SCH ×2 (10:43→22:58)
[2019-12-27] MEDS: TOLNAFTATE 1% CREAM 15 GM TUBE TP SCH ×2 (10:43→22:20)
[2019-12-27] MEDS: hydrOXYzine PAMOATE 50 MG CAPSULE (FP) PO PRN ×2 (10:46→23:30)
[2019-12-27] MEDS: ACETAMINOPHEN 325 MG TABLET (FP) PO PRN ×2 (10:46→21:35)
[2019-12-27] MEDS: SODIUM CHLORIDE NASAL SPRAY 44 ML BOTTLE NS PRN (10:48)
[2019-12-27] MEDS: LIDOCAINE PATCH REMOVAL MC SCH (21:33)
[2019-12-27] MEDS: MELATONIN 5 MG TABLETS PO PRN (21:33)
[2019-12-27] MEDS: THIAMINE HCL 100 MG TABLET (FP) PO SCH (21:33)
[2019-12-27] MEDS: MAG HYDROX/AL HYDROX/SIMETH 30 ML UNIT-DOSE CUP PO PRN (21:35)
[2019-12-27] MEDS: LATANOPROST 0.005% OPHTH SOLN 2.5ML BOTTLE OU SCH (21:53)
[2019-12-27] MEDS: METHYL SALICYLATE/MENTHOL OINT 30 GM TUBE TP SCH (22:20)
[2019-12-28] MEDS: hydrOXYzine PAMOATE 50 MG CAPSULE (FP) PO PRN ×3 (06:19→19:54)
[2019-12-28] MEDS: ACETAMINOPHEN 325 MG TABLET (FP) PO PRN ×3 (06:19→19:54)
[2019-12-28] MEDS: NICOTINE 21 MG/24 HOURS TOPICAL PATCH TD SCH (10:37)
[2019-12-28] MEDS: PRENATAL VITAMINS W/ FOLIC ACID TABLET (FP) PO SCH (10:37)
[2019-12-28] MEDS: LIDOCAINE 5% TOPICAL PATCH TP SCH (10:39)
[2019-12-28] MEDS: TIMOLOL 0.5% OPHTHALMIC SOL 5 ML BOTTLE OU SCH ×2 (10:39→22:07)
[2019-12-28] MEDS ORDERED: PT OWN MED DRAWER 7, Y5N ONE ×2 (10:39→19:49)
[2019-12-28] MEDS: TOLNAFTATE 1% CREAM 15 GM TUBE TP SCH ×2 (10:58→22:07)
[2019-12-28] MEDS: MAG HYDROX/AL HYDROX/SIMETH 30 ML UNIT-DOSE CUP PO PRN ×2 (13:46→23:43)
[2019-12-28] MEDS: BENZOCAINE 20 % GEL TUBE MM PRN (19:55)
[2019-12-28] MEDS: LIDOCAINE PATCH REMOVAL MC SCH (22:06)
[2019-12-28] MEDS: THIAMINE HCL 100 MG TABLET (FP) PO SCH (22:06)
[2019-12-28] MEDS: METHYL SALICYLATE/MENTHOL OINT 30 GM TUBE TP SCH (22:07)
[2019-12-28] MEDS: MELATONIN 5 MG TABLETS PO PRN (22:09)
[2019-12-28] MEDS: LATANOPROST 0.005% OPHTH SOLN 2.5ML BOTTLE OU SCH (22:10)
[2019-12-29] MEDS: NICOTINE 21 MG/24 HOURS TOPICAL PATCH TD SCH (10:51)
[2019-12-29] MEDS: PRENATAL VITAMINS W/ FOLIC ACID TABLET (FP) PO SCH (10:52)
[2019-12-29] MEDS: LIDOCAINE 5% TOPICAL PATCH TP SCH (10:52)
[2019-12-29] MEDS: ACETAMINOPHEN 325 MG TABLET (FP) PO PRN ×2 (10:54→21:33)
[2019-12-29] MEDS: MAG HYDROX/AL HYDROX/SIMETH 30 ML UNIT-DOSE CUP PO PRN ×2 (10:54→21:33)
[2019-12-29] MEDS: hydrOXYzine PAMOATE 50 MG CAPSULE (FP) PO PRN ×2 (10:54→21:31)
[2019-12-29] MEDS: TIMOLOL 0.5% OPHTHALMIC SOL 5 ML BOTTLE OU SCH ×2 (10:55→21:30)
[2019-12-29] MEDS: SODIUM CHLORIDE NASAL SPRAY 44 ML BOTTLE NS PRN (10:57)
[2019-12-29] MEDS: ALBUTEROL SO4 8 GM HFA INHALER IH PRN (10:57)
[2019-12-29] MEDS: TOLNAFTATE 1% CREAM 15 GM TUBE TP SCH ×2 (11:17→21:30)
[2019-12-29] MEDS ORDERED: PT OWN MED DRAWER 7, Y5N ONE ×2 (15:31→20:06)
[2019-12-29] MEDS: LIDOCAINE PATCH REMOVAL MC SCH (21:29)
[2019-12-29] MEDS: METHYL SALICYLATE/MENTHOL OINT 30 GM TUBE TP SCH (21:29)
[2019-12-29] MEDS: THIAMINE HCL 100 MG TABLET (FP) PO SCH (21:30)
[2019-12-29] MEDS: LATANOPROST 0.005% OPHTH SOLN 2.5ML BOTTLE OU SCH (21:30)
[2019-12-29] MEDS: MELATONIN 5 MG TABLETS PO PRN (21:31)
[2019-12-29] MEDS: BENZOCAINE 20 % GEL TUBE MM PRN (21:36)
[2019-12-30] MEDS: PRENATAL VITAMINS W/ FOLIC ACID TABLET (FP) PO SCH (10:29)
[2019-12-30] MEDS: NICOTINE 21 MG/24 HOURS TOPICAL PATCH TD SCH (10:29)
[2019-12-30] MEDS: LIDOCAINE 5% TOPICAL PATCH TP SCH (10:29)
[2019-12-30] MEDS: TOLNAFTATE 1% CREAM 15 GM TUBE TP SCH ×3 (10:29→21:35)
[2019-12-30] MEDS: SODIUM CHLORIDE NASAL SPRAY 44 ML BOTTLE NS PRN (10:30)
[2019-12-30] MEDS ORDERED: FAMOTIDINE 20 MG TABLET PO SCH ×2 (11:55→22:00)
[2019-12-30] MEDS: CYCLOBENZAPRINE HCL 5 MG TABLET PO SCH ×2 (13:28→21:32)
[2019-12-30] MEDS: ACETAMINOPHEN 325 MG TABLET (FP) PO PRN ×2 (13:58→21:34)
[2019-12-30] MEDS: ALBUTEROL SO4 8 GM HFA INHALER IH PRN (14:07)
[2019-12-30] MEDS: TIMOLOL 0.5% OPHTHALMIC SOL 5 ML BOTTLE OU SCH (18:20)
[2019-12-30] MEDS: MELATONIN 5 MG TABLETS PO PRN (21:33)
[2019-12-30] MEDS: THIAMINE HCL 100 MG TABLET (FP) PO SCH (21:33)
[2019-12-30] MEDS: METHYL SALICYLATE/MENTHOL OINT 30 GM TUBE TP SCH (21:34)
[2019-12-30] MEDS: LIDOCAINE PATCH REMOVAL MC SCH (21:35)
[2019-12-30] MEDS: LATANOPROST 0.005% OPHTH SOLN 2.5ML BOTTLE OU SCH (21:36)
[2019-12-30] MEDS ORDERED: traZODone HCL 100 MG TABLET (FP) PO SCH (22:00)
[2019-12-31] MEDS: TIMOLOL 0.5% OPHTHALMIC SOL 5 ML BOTTLE OU SCH (06:17)
[2019-12-31] MEDS: CYCLOBENZAPRINE HCL 5 MG TABLET PO SCH (06:17)
[2019-12-31] MEDS: ACETAMINOPHEN 325 MG TABLET (FP) PO PRN (06:18)
[2019-12-31 06:27] VITALS: BP 101/61; PULSE 73; TEMP 98
[2019-12-31] MEDS ORDERED: TAMSULOSIN HCL 0.4 MG CAP PO SCH (08:30)
[2019-12-31] MEDS ORDERED: PT OWN MED DRAWER 7, Y5N ONE ×2 (08:44→13:24)
--- NOTE | 2019-12-31 12:59 | DS ---
[facility] Discharge Summary - [facility] Discharge Summary Admission Date: 12/25/19 Discharge Date: 12/31/19 - History Present History: Alcohol dependence Pertinent Past History: CLIENT REPORTS DAILY ALCOHOL INTAKE. SEIZURES R/T ALCOHOL WITHDRAWAL. DENIES SI/ AVH. MOST RECENT CLEAN TIME 1 MONTH. RELAPSING 2 MONTHS AGO. HOMELESS, UNEMPLOYED, DENIES LEGALS - Discharge Physical Exam Vital Signs: Vital Signs Temperature 98.0 F 12/31/19 06:26 Pulse Rate 73 12/31/19 06:26 Respiratory Rate 20 12/31/19 06:26 Blood Pressure 101/61 12/31/19 06:26 O2 Sat by Pulse Oximetry (%) Pertinent Admission Physical Exam Findings: Physical General Appearance: No apparent distress HEENTM: Normocephalic, Respiratory: Lungs Clear, Neck: Supple, Trachea in good position Cardiology: S1, S2 Abdominal: +Bowel Sounds, Non Tender, Soft Musculoskeletal: unsteady gait ambualtes with cane 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: Cn2-12 intact Integumentary: Yes: Dry, Warm - Treatment Discharge Condition: Outpatient referral accepted (Patient was offered [facility] for aftercare. Medically stable for discharge.) Hospital Course: patient attended groups, had 1:1 with his counselor. He had no acute or urgent medical issues while in rehab. - Medication Discharge Medications: Ambulatory Orders traZODone HCL [Desyrel -] 100 mg PO HS #30 tablet 10/31/18 Albuterol Sulfate Inhaler - [Ventolin HFA Inhaler -] 2 inh PO Q4H PRN #1 inhaler 12/31/19 Latanoprost 0.005% Eye Drops [Xalatan 0.005% Eye Drops -] 1 drop OU HS #1 bottle 12/31/19 Tamsulosin HCl [Flomax -] 0.4 mg PO DAILY #30 cap.er.24h 12/31/19 Timolol 0.5% [Timoptic 0.5%] 1 drop OU BID #1 drops 12/31/19 - Medication-Assisted Treatment (MAT) Medication-Assisted Treatment (MAT): No - Discharge Instructions Diet, activity, other medical instructions: Diet: as tolerated Activity: as tolerated Other medical instructions: Please follow up with aftercare referral. - Diagnosis (1) Alcohol dependence with uncomplicated withdrawal Current Visit: No Status: Chronic - Follow-up Referral Minutes to complete discharge: 15 - AMA Did Patient Leave Against Medical Advice: No Additional Comments: Prescriptions for medications transmitted to the patient's pharmacy.
[2019-12-31] MEDS ORDERED: METHOCARBAMOL 500 MG TABLET PO SCH (14:00)
== END 2019-12-31 13:25 | disposition home or self-care (01) | DRG 772 ==
LOC: YASAS 10:08 → Y3W 10:09
PROVIDERS: ADMIT Allergy & Immunology; ATTEND Allergy & Immunology
PROC: HZ42ZZZ Group Counseling for Substance Abuse Treatment, Cognitive-Behavioral (ICD-10-PCS; principal; 2019-12-25)
DX: F10.20 Alcohol dependence, uncomplicated (principal); F10.282 Alcohol dependence with alcohol-induced sleep disorder; F10.24 Alcohol dependence with alcohol-induced mood disorder; F17.210 Nicotine dependence, cigarettes, uncomplicated; F25.9 Schizoaffective disorder, unspecified; K21.9 Gastro-esophageal reflux disease without esophagitis; M54.5 Low back pain; G89.29 Other chronic pain; R26.2 Difficulty in walking, not elsewhere classified; Z99.89 Dependence on other enabling machines and devices; Z88.0 Allergy status to penicillin; Z88.8 Allergy status to other drugs, medicaments and biological substances; Z91.013 Allergy to seafood; Z86.69 Personal history of other diseases of the nervous system and sense organs; Z91.19 Patient's noncompliance with other medical treatment and regimen
CPT/HCPCS: 36415; 86803; 87389

== ENCOUNTER 2020-06-17 13:19 | Inpatient (IN) | payer OTHER ==
--- NOTE | 2020-06-17 13:51 | BHS.RME ---
Physical/Psych/Mental Status - Behavior General Behavior: Decreased activity Eye Contact: Normal - Cooperativeness Cooperativeness: Cooperative - Thinking Thought Processes: Tight Thought content: Future oriented - Physical Health Problems Is patient presently having any pain?: Yes (GI upset) Does patient presently have any injuries (include location): Yes (left brow glued at [facility] today) Does patient currently have a fever: No CIWA Nausea/Vomitin Muscle Tremors: 1-None Visible, but [place] Anxiety: 1-Mildly Anxious Agitation: 0-Normal Activity Paroxysmal Sweats: No Perspiration Orientation: 3-Disoriented Date>2 days Tacttile Disturbances: 0-None Auditory Disturbances: 1-Very Mild Visual Disturbances: 1-Very Mild Sensitivity Headache: 2-Mild CIWA-Ar Total Score: 12
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
[2020-06-17] MEDS ORDERED: MENTHOL/PHENOL 1 EACH UD MM PRN (15:55)
[2020-06-17] MEDS ORDERED: ACETAMINOPHEN 325 MG TABLET (FP) PO PRN (15:55)
[2020-06-17] MEDS ORDERED: MAGNESIUM CITRATE 300 ML BOTTLE PO PRN (15:55)
[2020-06-17] MEDS ORDERED: MAG HYDROX/AL HYDROX/SIMETH 30 ML UNIT-DOSE CUP PO PRN (15:55)
[2020-06-17] MEDS ORDERED: IBUPROFEN 400 MG TABLET (FP) PO PRN (15:55)
[2020-06-17] MEDS ORDERED: MAGNESIUM HYDROX 2400MG/30ML ORAL SUSPENSION 30 ML CUP PO PRN (15:55)
[2020-06-17] MEDS ORDERED: BISMUTH SUBSALICYLATE 524 MG/30 ML UD PO PRN (15:55)
[2020-06-17] MEDS ORDERED: chlordiazePOXIDE HCL 25 MG CAPSULE PO PRN (15:55)
[2020-06-17] MEDS ORDERED: NICOTINE POLACRILEX 2 MG GUM BUC PRN (15:55)
[2020-06-17] MEDS ORDERED: ONDANSETRON *ODT* 4 MG TABLET SL ONE (15:55)
[2020-06-17 16:48] VITALS: BMI 28.0
--- NOTE | 2020-06-17 16:53 | PN ---
Teaching Attending Note Name of Resident: Adina Carrasco ATTENDING PHYSICIAN STATEMENT I saw and evaluated the patient. I reviewed the resident's note and discussed the case with the resident. I agree with the resident's findings and plan as documented. SUBJECTIVE: 59 y.o. male requesting detox from alcohol use , currently intoxicated , beligerant , irritable . ambulating w/ cane . pmhx : Glaucoma, low back pain, BPH, GERD, arthritis, Cataract, depression , paranoid schizophrenia , R ANKLE SURGERY , BENTLEY WRISTS, c-SPINE SURGERY OBJECTIVE: wnwd . left eyebrow suture , states injury several days ago , unable to provide additional details due to intoxication . Unsteady gait , intoxicated , urinating at bedside. Vital Signs - 24 hr 06/17/20 16:40 Temperature 98.2 F Pulse Rate 93 H Respiratory 20 Rate Blood Pressure 127/75 ASSESSMENT AND PLAN: AUD - Librium detox . Wound care.
[2020-06-17] MEDS ORDERED: ALBUTEROL SO4 HFA INHALER IH PRN (17:11)
[2020-06-17] MEDS: NICOTINE 7 MG/24 HOURS TOPICAL PATCH TD SCH (18:25)
[2020-06-17] MEDS: PRENATAL VITAMINS W/ FOLIC ACID TABLET (FP) PO SCH (18:26)
[2020-06-17] MEDS: chlordiazePOXIDE HCL 25 MG CAPSULE PO SCH ×2 (18:48→23:17)
[2020-06-17] MEDS: TAMSULOSIN HCL 0.4 MG CAP PO SCH (18:48)
[2020-06-17] MEDS: hydrOXYzine PAMOATE 25 MG CAPSULE (FP) PO SCH (18:50)
[2020-06-17] MEDS: ACETAMINOPHEN 325 MG TABLET (FP) PO PRN (19:10)
[2020-06-17] MEDS ORDERED: TRIMETHOBENZAMIDE HCL 200MG/2ML INJ IM ONE (21:42)
--- NOTE | 2020-06-17 21:43 | PN ---
[facility] Progress Note Note: Patient vomited x 2 Vital Signs Temperature 97.7 F 06/17/20 17:55 Pulse Rate 92 H 06/17/20 17:55 Respiratory Rate 20 06/17/20 17:55 Blood Pressure 120/101 H 06/17/20 17:55 O2 Sat by Pulse Oximetry (%) 96 06/17/20 17:55 Action: Trimethobenzamide injection (Tigan) 200mg intramuscular ordered
[2020-06-17] MEDS: traZODone HCL 100 MG TABLET (FP) PO SCH (23:17)
[2020-06-17] MEDS: THIAMINE HCL 100 MG TABLET (FP) PO SCH (23:30)
[2020-06-17] MEDS: LATANOPROST 0.005% OPHTH SOLN 2.5ML BOTTLE OU SCH (23:30)
[2020-06-17] MEDS: TIMOLOL 0.5% OPHTHALMIC SOL 5 ML BOTTLE OU SCH (23:40)
[2020-06-17] MEDS: MELATONIN 5 MG TABLETS PO SCH (23:40)
[2020-06-18] MEDS: hydrOXYzine PAMOATE 25 MG CAPSULE (FP) PO SCH ×2 (00:23→07:30)
[2020-06-18] MEDS: chlordiazePOXIDE HCL 25 MG CAPSULE PO SCH ×4 (06:42→22:45)
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
[2020-06-18 10:11] LABS: HEMATOCRIT 35.2 % (35.4-49); HEMOGLOBIN 11.3 GM/dL (11.7-16.9); MCH 27.7 pg (25.7-33.7); MEAN CELL VOLUME 86.6 fl (80-96); MEAN PLT VOLUME 8.7 fl (7.5-11.1); PLATELET COUNT 131 K/MM3 (134-434); RBC 4.07 M/mm3 (4.00-5.60); RDW 17.3 % (11.9-15.9)
[2020-06-18 10:24] LABS: ALBUMIN 3.3 g/dl (3.4-5.0); BILIRUBIN,TOTAL 0.8 mg/dL (0.2-1); BLOOD UREA NITROGEN 5.5 mg/dL (7-18); CALCIUM 8.7 mg/dL (8.5-10.1); CREATININE 0.9 mg/dL (0.55-1.3); POTASSIUM 3.6 mmol/L (3.5-5.1); TOT PROT 7.1 g/dl (6.4-8.2)
--- NOTE | 2020-06-18 10:42 | PN ---
S CIWA - CIWA Score Nausea/Vomitin Muscle Tremors: 2 Anxiety: 2 Agitation: 2 Paroxysmal Sweats: No Perspiration Orientation: 1-Uncertain about Date Tacttile Disturbances: 0-None Auditory Disturbances: 0-None Visual Disturbances: 0-None Headache: 2-Mild CIWA-Ar Total Score: 11 S Progress Note (SOAP) Subjective: alert,irritable,anxious,interrupted sleep,tremor,body ache Objective: 06/18/20 10:40 Vital Signs Temperature 97.3 F L 06/18/20 05:34 Pulse Rate 91 H 06/18/20 05:34 Respiratory Rate 16 06/18/20 05:34 Blood Pressure 123/69 06/18/20 05:34 O2 Sat by Pulse Oximetry (%) 97 06/18/20 05:34 06/18/20 10:40 Laboratory Last Values WBC 5.0 K/mm3 (4.0-10.0) 06/18/20 08:00 RBC 4.07 M/mm3 (4.00-5.60) 06/18/20 08:00 Hgb 11.3 GM/dL (11.7-16.9) L 06/18/20 08:00 Hct 35.2 % (35.4-49) L 06/18/20 08:00 MCV 86.6 fl (80-96) 06/18/20 08:00 MCH 27.7 pg (25.7-33.7) 06/18/20 08:00 MCHC 32.0 g/dl (32.0-35.9) 06/18/20 08:00 RDW 17.3 % (11.9-15.9) H 06/18/20 08:00 Plt Count 131 K/MM3 (134-434) L D 06/18/20 08:00 MPV 8.7 fl (7.5-11.1) 06/18/20 08:00 Sodium 140 mmol/L (136-145) 06/18/20 08:00 Potassium 3.6 mmol/L (3.5-5.1) 06/18/20 08:00 Chloride 101 mmol/L (98-107) 06/18/20 08:00 Carbon Dioxide 32 mmol/L (21-32) 06/18/20 08:00 Anion Gap 6 MMOL/L (8-16) L 06/18/20 08:00 BUN 5.5 mg/dL (7-18) L 06/18/20 08:00 Creatinine 0.9 mg/dL (0.55-1.3) 06/18/20 08:00 Est GFR (CKD-EPI)AfAm 106.46 06/18/20 08:00 Est GFR (CKD-EPI)NonAf 91.86 06/18/20 08:00 Random Glucose 96 mg/dL (74-106) 06/18/20 08:00 Calcium 8.7 mg/dL (8.5-10.1) 06/18/20 08:00 Total Bilirubin 0.8 mg/dL (0.2-1) 06/18/20 08:00 AST 24 U/L (15-37) 06/18/20 08:00 ALT 17 U/L (13-61) 06/18/20 08:00 Alkaline Phosphatase 111 U/L (45-117) 06/18/20 08:00 Total Protein 7.1 g/dl (6.4-8.2) 06/18/20 08:00 Albumin 3.3 g/dl (3.4-5.0) L 06/18/20 08:00 Assessment: 06/18/20 10:42 withdrawal symptom Plan: continue detox librium regimen,seizure precaution
[2020-06-18] MEDS: TAMSULOSIN HCL 0.4 MG CAP PO SCH (11:10)
[2020-06-18] MEDS: ACETAMINOPHEN 325 MG TABLET (FP) PO PRN ×3 (11:10→22:54)
[2020-06-18] MEDS: METHOCARBAMOL 500 MG TABLET PO PRN ×2 (11:10→17:28)
[2020-06-18] MEDS: PRENATAL VITAMINS W/ FOLIC ACID TABLET (FP) PO SCH (11:11)
[2020-06-18] MEDS: TIMOLOL 0.5% OPHTHALMIC SOL 5 ML BOTTLE OU SCH ×2 (11:11→22:45)
[2020-06-18] MEDS: NICOTINE 7 MG/24 HOURS TOPICAL PATCH TD SCH (11:11)
--- NOTE | 2020-06-18 12:14 | EKG ---
Test Reason : Blood Pressure : / mmHG Vent. Rate : 099 BPM Atrial Rate : 099 BPM P-R Int : 162 ms QRS Dur : 098 ms QT Int : 370 ms P-R-T Axes : 077 049 086 degrees QTc Int : 474 ms POOR DATA QUALITY, INTERPRETATION MAY BE ADVERSELY AFFECTED NORMAL SINUS RHYTHM NORMAL ECG WHEN COMPARED WITH ECG OF 19-APR-2020 21:48, NO SIGNIFICANT CHANGE WAS FOUND Confirmed by MYRON GRISSOM, MIHAI ([id number]) on 06/18/2020 12:14:05 PM Referred By: Confirmed By:MIHAI SANCHES MD
[2020-06-18] MEDS ORDERED: COLLOIDAL OATMEAL 1 BAR EACH TP PRN (13:24)
[2020-06-18] MEDS: hydrOXYzine PAMOATE 25 MG CAPSULE (FP) PO PRN (18:05)
[2020-06-18] MEDS: traZODone HCL 100 MG TABLET (FP) PO SCH (22:45)
[2020-06-18] MEDS: THIAMINE HCL 100 MG TABLET (FP) PO SCH (22:45)
[2020-06-18] MEDS: LATANOPROST 0.005% OPHTH SOLN 2.5ML BOTTLE OU SCH (22:45)
[2020-06-18] MEDS: MELATONIN 5 MG TABLETS PO SCH (22:46)
[2020-06-19] MEDS: chlordiazePOXIDE HCL 25 MG CAPSULE PO SCH ×4 (07:20→23:40)
[2020-06-19] MEDS: ACETAMINOPHEN 325 MG TABLET (FP) PO PRN ×3 (07:20→23:38)
[2020-06-19] MEDS: METHOCARBAMOL 500 MG TABLET PO PRN ×3 (07:24→23:38)
[2020-06-19] MEDS: NICOTINE 7 MG/24 HOURS TOPICAL PATCH TD SCH (10:52)
[2020-06-19] MEDS: TIMOLOL 0.5% OPHTHALMIC SOL 5 ML BOTTLE OU SCH ×2 (10:52→22:00)
[2020-06-19] MEDS: TAMSULOSIN HCL 0.4 MG CAP PO SCH (10:52)
[2020-06-19] MEDS: PRENATAL VITAMINS W/ FOLIC ACID TABLET (FP) PO SCH (10:53)
--- NOTE | 2020-06-19 12:46 | PN ---
[facility] CIWA - CIWA Score Nausea/Vomitin-Mild Nausea/No Vomiting Muscle Tremors: 2 Anxiety: 2 Agitation: 2 Paroxysmal Sweats: No Perspiration Orientation: 0-Oriented Tacttile Disturbances: 1-Very Mild Itch/Numbness Auditory Disturbances: 0-None Visual Disturbances: 0-None Headache: 2-Mild CIWA-Ar Total Score: 10 S Progress Note (SOAP) Subjective: alert,irritable,anxious,interrupted sleep,pain in both legs,neuropathy,rash both groins Objective: 06/19/20 12:45 Vital Signs Temperature 98.6 F 06/19/20 05:13 Pulse Rate 90 06/19/20 05:13 Respiratory Rate 16 06/19/20 05:13 Blood Pressure 127/68 06/19/20 05:13 O2 Sat by Pulse Oximetry (%) 98 06/19/20 05:13 06/19/20 12:45 Laboratory Last Values WBC 5.0 K/mm3 (4.0-10.0) 06/18/20 08:00 RBC 4.07 M/mm3 (4.00-5.60) 06/18/20 08:00 Hgb 11.3 GM/dL (11.7-16.9) L 06/18/20 08:00 Hct 35.2 % (35.4-49) L 06/18/20 08:00 MCV 86.6 fl (80-96) 06/18/20 08:00 MCH 27.7 pg (25.7-33.7) 06/18/20 08:00 MCHC 32.0 g/dl (32.0-35.9) 06/18/20 08:00 RDW 17.3 % (11.9-15.9) H 06/18/20 08:00 Plt Count 131 K/MM3 (134-434) L D 06/18/20 08:00 MPV 8.7 fl (7.5-11.1) 06/18/20 08:00 Sodium 140 mmol/L (136-145) 06/18/20 08:00 Potassium 3.6 mmol/L (3.5-5.1) 06/18/20 08:00 Chloride 101 mmol/L (98-107) 06/18/20 08:00 Carbon Dioxide 32 mmol/L (21-32) 06/18/20 08:00 Anion Gap 6 MMOL/L (8-16) L 06/18/20 08:00 BUN 5.5 mg/dL (7-18) L 06/18/20 08:00 Creatinine 0.9 mg/dL (0.55-1.3) 06/18/20 08:00 Est GFR (CKD-EPI)AfAm 106.46 06/18/20 08:00 Est GFR (CKD-EPI)NonAf 91.86 06/18/20 08:00 Random Glucose 96 mg/dL (74-106) 06/18/20 08:00 Calcium 8.7 mg/dL (8.5-10.1) 06/18/20 08:00 Total Bilirubin 0.8 mg/dL (0.2-1) 06/18/20 08:00 AST 24 U/L (15-37) 06/18/20 08:00 ALT 17 U/L (13-61) 06/18/20 08:00 Alkaline Phosphatase 111 U/L (45-117) 06/18/20 08:00 Total Protein 7.1 g/dl (6.4-8.2) 06/18/20 08:00 Albumin 3.3 g/dl (3.4-5.0) L 06/18/20 08:00 Syphilis Serology Non-reactive (NONREACTIVE) 06/18/20 08:00 COVID-19 ([facility]) Not detected (Not Detected) 06/17/20 19:00 Assessment: 06/19/20 12:45 withdrawal symptom Plan: continue detox librium regimen,neurontin 300 mgs po bid for neuroapthy,hydrocortisone cream to both groins bid
[2020-06-19] MEDS: GABAPENTIN 300 MG CAPSULE PO SCH ×2 (13:40→23:40)
[2020-06-19] MEDS: HYDROCORTISONE 0.5% TOPICAL CREAM 30 GM TUBE TP SCH ×2 (13:40→23:40)
--- NOTE | 2020-06-19 15:35 | PN ---
[facility] Progress Note Note: pain in both ankles,history of fx in the past,x ray both ankles and feet,n calf tenderness
[2020-06-19] MEDS: hydrOXYzine PAMOATE 25 MG CAPSULE (FP) PO PRN (17:48)
[2020-06-19] MEDS: PANTOPRAZOLE 20 MG TABLET PO SCH ×2 (19:05→23:08)
[2020-06-19] MEDS: MELATONIN 5 MG TABLETS PO SCH (23:08)
[2020-06-19] MEDS: traZODone HCL 100 MG TABLET (FP) PO SCH (23:40)
[2020-06-19] MEDS: LATANOPROST 0.005% OPHTH SOLN 2.5ML BOTTLE OU SCH (23:40)
[2020-06-19] MEDS: THIAMINE HCL 100 MG TABLET (FP) PO SCH (23:40)
[2020-06-20] MEDS ORDERED: chlordiazePOXIDE HCL 10 MG CAPSULE PO PRN
[2020-06-20] MEDS: chlordiazePOXIDE HCL 10 MG CAPSULE PO SCH ×4 (06:32→22:59)
[2020-06-20] MEDS: PANTOPRAZOLE 20 MG TABLET PO SCH ×2 (10:38→22:57)
[2020-06-20] MEDS: TAMSULOSIN HCL 0.4 MG CAP PO SCH (10:38)
[2020-06-20] MEDS: NICOTINE 7 MG/24 HOURS TOPICAL PATCH TD SCH (10:38)
[2020-06-20] MEDS: GABAPENTIN 300 MG CAPSULE PO SCH ×2 (10:38→22:57)
[2020-06-20] MEDS: PRENATAL VITAMINS W/ FOLIC ACID TABLET (FP) PO SCH (10:39)
[2020-06-20] MEDS: HYDROCORTISONE 0.5% TOPICAL CREAM 30 GM TUBE TP SCH ×2 (10:39→23:06)
[2020-06-20] MEDS: TIMOLOL 0.5% OPHTHALMIC SOL 5 ML BOTTLE OU SCH ×2 (10:40→23:05)
[2020-06-20] MEDS: ACETAMINOPHEN 325 MG TABLET (FP) PO PRN ×2 (10:44→17:26)
[2020-06-20] MEDS: METHOCARBAMOL 500 MG TABLET PO PRN ×2 (10:48→17:26)
--- NOTE | 2020-06-20 12:11 | PN ---
[facility] CIWA - CIWA Score Nausea/Vomitin-No Nausea/No Vomiting Muscle Tremors: 1-None Visible, but [place] Anxiety: 3 Agitation: 2 Paroxysmal Sweats: 1-Minimal Palms Moist Orientation: 0-Oriented Tacttile Disturbances: 0-None Auditory Disturbances: 1-Very Mild Visual Disturbances: 1-Very Mild Sensitivity Headache: 0-None Present CIWA-Ar Total Score: 9 S Progress Note (SOAP) Subjective: Complaints of pain in the legs, anxiety, irritability, and noise sensitivity. Objective: 06/20/20 12:09 Vital Signs 06/20/20 06/20/20 05:37 08:55 Temperature 98.2 F 97.1 F L Pulse Rate 70 90 Respiratory 16 18 Rate Blood Pressure 120/74 109/65 O2 Sat by Pulse 95 95 Oximetry (%) Laboratory Last Values WBC 5.0 K/mm3 (4.0-10.0) 06/18/20 08:00 RBC 4.07 M/mm3 (4.00-5.60) 06/18/20 08:00 Hgb 11.3 GM/dL (11.7-16.9) L 06/18/20 08:00 Hct 35.2 % (35.4-49) L 06/18/20 08:00 MCV 86.6 fl (80-96) 06/18/20 08:00 MCH 27.7 pg (25.7-33.7) 06/18/20 08:00 MCHC 32.0 g/dl (32.0-35.9) 06/18/20 08:00 RDW 17.3 % (11.9-15.9) H 06/18/20 08:00 Plt Count 131 K/MM3 (134-434) L D 06/18/20 08:00 MPV 8.7 fl (7.5-11.1) 06/18/20 08:00 Sodium 140 mmol/L (136-145) 06/18/20 08:00 Potassium 3.6 mmol/L (3.5-5.1) 06/18/20 08:00 Chloride 101 mmol/L (98-107) 06/18/20 08:00 Carbon Dioxide 32 mmol/L (21-32) 06/18/20 08:00 Anion Gap 6 MMOL/L (8-16) L 06/18/20 08:00 BUN 5.5 mg/dL (7-18) L 06/18/20 08:00 Creatinine 0.9 mg/dL (0.55-1.3) 06/18/20 08:00 Est GFR (CKD-EPI)AfAm 106.46 06/18/20 08:00 Est GFR (CKD-EPI)NonAf 91.86 06/18/20 08:00 Random Glucose 96 mg/dL (74-106) 06/18/20 08:00 Calcium 8.7 mg/dL (8.5-10.1) 06/18/20 08:00 Total Bilirubin 0.8 mg/dL (0.2-1) 06/18/20 08:00 AST 24 U/L (15-37) 06/18/20 08:00 ALT 17 U/L (13-61) 06/18/20 08:00 Alkaline Phosphatase 111 U/L (45-117) 06/18/20 08:00 Total Protein 7.1 g/dl (6.4-8.2) 06/18/20 08:00 Albumin 3.3 g/dl (3.4-5.0) L 06/18/20 08:00 Syphilis Serology Non-reactive (NONREACTIVE) 06/18/20 08:00 COVID-19 ([facility]) Not detected (Not Detected) 06/17/20 19:00 Labs noted. Assessment: 06/20/20 12:09 Alert and oriented x3, in no acute respiratory distress. Decreased ROM due pain in both legs, ambulatory with wheelchair.. Withdrawal symptoms. Plan: Continue detox protocol.
[2020-06-20] MEDS: hydrOXYzine PAMOATE 25 MG CAPSULE (FP) PO PRN (17:28)
[2020-06-20] MEDS: traZODone HCL 100 MG TABLET (FP) PO SCH (22:57)
[2020-06-20] MEDS: THIAMINE HCL 100 MG TABLET (FP) PO SCH (22:57)
[2020-06-20] MEDS: MELATONIN 5 MG TABLETS PO SCH (23:06)
[2020-06-20] MEDS: LATANOPROST 0.005% OPHTH SOLN 2.5ML BOTTLE OU SCH (23:06)
[2020-06-21] MEDS: chlordiazePOXIDE HCL 10 MG CAPSULE PO SCH ×2 (06:59→17:46)
[2020-06-21] MEDS: TAMSULOSIN HCL 0.4 MG CAP PO SCH (08:01)
[2020-06-21] MEDS: TIMOLOL 0.5% OPHTHALMIC SOL 5 ML BOTTLE OU SCH ×2 (10:13→21:53)
[2020-06-21] MEDS: PANTOPRAZOLE 20 MG TABLET PO SCH ×2 (10:14→21:45)
[2020-06-21] MEDS: GABAPENTIN 300 MG CAPSULE PO SCH ×2 (10:14→21:45)
[2020-06-21] MEDS: PRENATAL VITAMINS W/ FOLIC ACID TABLET (FP) PO SCH (10:14)
[2020-06-21] MEDS: NICOTINE 7 MG/24 HOURS TOPICAL PATCH TD SCH (10:14)
[2020-06-21] MEDS: METHOCARBAMOL 500 MG TABLET PO PRN ×2 (10:16→17:45)
[2020-06-21] MEDS: ACETAMINOPHEN 325 MG TABLET (FP) PO PRN ×2 (10:16→17:45)
[2020-06-21] MEDS: HYDROCORTISONE 0.5% TOPICAL CREAM 30 GM TUBE TP SCH ×2 (10:23→21:43)
--- NOTE | 2020-06-21 12:54 | PN ---
S CIWA - CIWA Score Nausea/Vomitin-No Nausea/No Vomiting Muscle Tremors: None Anxiety: 2 Agitation: 2 Paroxysmal Sweats: 2 Orientation: 0-Oriented Tacttile Disturbances: 0-None Auditory Disturbances: 0-None Visual Disturbances: 0-None Headache: 0-None Present CIWA-Ar Total Score: 6 BHS Progress Note (SOAP) Subjective: Legs itchy and feels puffy, tremor, appears anxious Objective: 06/21/20 12:47 Last Vital Signs Temp Pulse Resp BP Pulse Ox 97 F L 89 18 127/78 97 06/21/20 09:13 06/21/20 09:13 06/21/20 09:13 06/21/20 09:13 06/21/20 09:13 Laboratory Tests 06/17/20 06/18/20 06/18/20 19:00 08:00 08:00 WBC 5.0 RBC 4.07 Hgb 11.3 L Hct 35.2 L MCV 86.6 MCH 27.7 MCHC 32.0 RDW 17.3 H Plt Count 131 L D MPV 8.7 Sodium Potassium Chloride Carbon Dioxide Anion Gap BUN Creatinine Est GFR (CKD-EPI)AfAm Est GFR (CKD-EPI)NonAf Random Glucose Calcium Total Bilirubin AST ALT Alkaline Phosphatase Total Protein Albumin Syphilis Serology Non-reactive COVID-19 ([facility]) Not detected 06/18/20 08:00 WBC RBC Hgb Hct MCV MCH MCHC RDW Plt Count MPV Sodium 140 Potassium 3.6 Chloride 101 Carbon Dioxide 32 Anion Gap 6 L BUN 5.5 L Creatinine 0.9 Est GFR (CKD-EPI)AfAm 106.46 Est GFR (CKD-EPI)NonAf 91.86 Random Glucose 96 Calcium 8.7 Total Bilirubin 0.8 AST 24 ALT 17 Alkaline Phosphatase 111 Total Protein 7.1 Albumin 3.3 L Syphilis Serology COVID-19 ([facility]) Labs reviewed: mild anemia noted, plt 123 (low Assessment: 06/21/20 12:49 Withdrawal sxs Noted with anemia and thrombocytopenia Plan: Continue detox Encouraged PO water hydration Patient is scheduled for discharge home tomorrow Anemia: mild, most likely r/t alcoholism, continue vitamin, follow up with PCP for management Thrombocytopenia: most likely r/t alcoholism, follow up with PCP for monitoring, encourage abstinence from alcohol
[2020-06-21] MEDS: traZODone HCL 100 MG TABLET (FP) PO SCH (21:45)
[2020-06-21] MEDS: THIAMINE HCL 100 MG TABLET (FP) PO SCH (21:45)
[2020-06-21] MEDS: LATANOPROST 0.005% OPHTH SOLN 2.5ML BOTTLE OU SCH (21:46)
[2020-06-21] MEDS: MELATONIN 5 MG TABLETS PO SCH (21:48)
[2020-06-22] MEDS ORDERED: chlordiazePOXIDE HCL 10 MG CAPSULE PO ONE (05:00)
[2020-06-22] MEDS: METHOCARBAMOL 500 MG TABLET PO PRN (06:05)
[2020-06-22] MEDS: ACETAMINOPHEN 325 MG TABLET (FP) PO PRN ×2 (06:05→11:06)
[2020-06-22 06:10] VITALS: BP 133/70; PULSE 67; TEMP 97.7
--- NOTE | 2020-06-22 10:06 | PN ---
[facility] CIWA - CIWA Score Nausea/Vomitin-No Nausea/No Vomiting Muscle Tremors: None Anxiety: 1-Mildly Anxious Agitation: 0-Normal Activity Paroxysmal Sweats: No Perspiration Orientation: 0-Oriented Tacttile Disturbances: 0-None Auditory Disturbances: 0-None Visual Disturbances: 0-None Headache: 0-None Present CIWA-Ar Total Score: 1 BHS Progress Note (SOAP) Subjective: alert,no complaint Objective: 06/22/20 10:04 Vital Signs Temperature 97.7 F 06/22/20 05:15 Pulse Rate 67 06/22/20 05:15 Respiratory Rate 16 06/22/20 05:15 Blood Pressure 133/70 06/22/20 05:15 O2 Sat by Pulse Oximetry (%) 96 06/22/20 05:15 Assessment: 06/22/20 10:04 detox completed,no withdrawal symptom xray bot feet and ankles noted Plan: stable for discharge ,follow up with after care treatment rehab
--- NOTE | 2020-06-22 10:07 | DS ---
[facility] Detox Discharge Summary Admission Date: 06/17/20 Discharge Date: 06/22/20 - History Present History: Alcohol Dependence Additional Comments: alert,oriented x 3 ambulation on the unit lung clear bilaterally abdomen soft,no distension,no pain detox completed,no withdrawal symptom stable for discharge today follow up with after care program as arrangement [facility] total time of discharge 35 minutes Pertinent Past History: alcohol related seizure arthritis bph low back pain gerd glaucoma both eyes neuropathy history of neck surgery schizoaffective disorder asthma - Physical Exam Results Vital Signs: Vital Signs Temperature 97.7 F 06/22/20 05:15 Pulse Rate 67 06/22/20 05:15 Respiratory Rate 16 06/22/20 05:15 Blood Pressure 133/70 06/22/20 05:15 O2 Sat by Pulse Oximetry (%) 96 06/22/20 05:15 Pertinent Admission Physical Exam Findings: withdrawal signs and symptom Laboratory Last Values WBC 5.0 K/mm3 (4.0-10.0) 06/18/20 08:00 RBC 4.07 M/mm3 (4.00-5.60) 06/18/20 08:00 Hgb 11.3 GM/dL (11.7-16.9) L 06/18/20 08:00 Hct 35.2 % (35.4-49) L 06/18/20 08:00 MCV 86.6 fl (80-96) 06/18/20 08:00 MCH 27.7 pg (25.7-33.7) 06/18/20 08:00 MCHC 32.0 g/dl (32.0-35.9) 06/18/20 08:00 RDW 17.3 % (11.9-15.9) H 06/18/20 08:00 Plt Count 131 K/MM3 (134-434) L D 06/18/20 08:00 MPV 8.7 fl (7.5-11.1) 06/18/20 08:00 Sodium 140 mmol/L (136-145) 06/18/20 08:00 Potassium 3.6 mmol/L (3.5-5.1) 06/18/20 08:00 Chloride 101 mmol/L (98-107) 06/18/20 08:00 Carbon Dioxide 32 mmol/L (21-32) 06/18/20 08:00 Anion Gap 6 MMOL/L (8-16) L 06/18/20 08:00 BUN 5.5 mg/dL (7-18) L 06/18/20 08:00 Creatinine 0.9 mg/dL (0.55-1.3) 06/18/20 08:00 Est GFR (CKD-EPI)AfAm 106.46 06/18/20 08:00 Est GFR (CKD-EPI)NonAf 91.86 06/18/20 08:00 Random Glucose 96 mg/dL (74-106) 06/18/20 08:00 Calcium 8.7 mg/dL (8.5-10.1) 06/18/20 08:00 Total Bilirubin 0.8 mg/dL (0.2-1) 06/18/20 08:00 AST 24 U/L (15-37) 06/18/20 08:00 ALT 17 U/L (13-61) 06/18/20 08:00 Alkaline Phosphatase 111 U/L (45-117) 06/18/20 08:00 Total Protein 7.1 g/dl (6.4-8.2) 06/18/20 08:00 Albumin 3.3 g/dl (3.4-5.0) L 06/18/20 08:00 Syphilis Serology Non-reactive (NONREACTIVE) 06/18/20 08:00 COVID-19 ([facility]) Not detected (Not Detected) 06/17/20 19:00 Vital Signs Temperature 97.7 F 06/22/20 05:15 Pulse Rate 67 06/22/20 05:15 Respiratory Rate 16 06/22/20 05:15 Blood Pressure 133/70 06/22/20 05:15 O2 Sat by Pulse Oximetry (%) 96 06/22/20 05:15 - Treatment Hospital Course: Detox Protocol Followed, Detoxed Safely, Responded well, Discharged Condition Good, Rehab Referral Accepted Patient has Accepted a Rehab Referral to: [facility] - Medication Discharge Medications: Ambulatory Orders traZODone HCL [Desyrel -] 100 mg PO HS #30 tablet 10/31/18 Albuterol Sulfate Inhaler - [Ventolin HFA Inhaler -] 2 inh PO Q4H PRN #1 inhaler 12/31/19 Latanoprost 0.005% Eye Drops [Xalatan 0.005% Eye Drops -] 1 drop OU HS #1 bottle 12/31/19 Tamsulosin HCl [Flomax -] 0.4 mg PO DAILY #30 cap.er.24h 12/31/19 Timolol 0.5% [Timoptic 0.5%] 1 drop OU BID #1 drops 12/31/19 - AMA Did Patient Leave Against Medical Advice: No
[2020-06-22] MEDS: PANTOPRAZOLE 20 MG TABLET PO SCH (11:03)
[2020-06-22] MEDS: GABAPENTIN 300 MG CAPSULE PO SCH (11:03)
[2020-06-22] MEDS: NICOTINE 7 MG/24 HOURS TOPICAL PATCH TD SCH (11:03)
[2020-06-22] MEDS: TAMSULOSIN HCL 0.4 MG CAP PO SCH (11:03)
[2020-06-22] MEDS: HYDROCORTISONE 0.5% TOPICAL CREAM 30 GM TUBE TP SCH (11:04)
[2020-06-22] MEDS: PRENATAL VITAMINS W/ FOLIC ACID TABLET (FP) PO SCH (11:04)
[2020-06-22] MEDS: TIMOLOL 0.5% OPHTHALMIC SOL 5 ML BOTTLE OU SCH (11:04)
--- NOTE | 2020-06-22 11:51 | PN ---
BHS Progress Note Note: sutures removed from left eyebrow
[2020-07-08] MEDS ORDERED: METHYL SALICYLATE/MENTHOL OINT 30 GM TUBE TP SCH (22:00)
== END 2020-06-22 11:39 | disposition other institution (70) | DRG 775 ==
LOC: YASAS 13:19 → Y6N 17:03
PROVIDERS: ADMIT Allergy & Immunology; ATTEND Allergy & Immunology
PROC: HZ2ZZZZ Detoxification Services for Substance Abuse Treatment (ICD-10-PCS; principal; 2020-06-17)
DX: F10.230 Alcohol dependence with withdrawal, uncomplicated (principal); F17.210 Nicotine dependence, cigarettes, uncomplicated; F25.0 Schizoaffective disorder, bipolar type; F10.280 Alcohol dependence with alcohol-induced anxiety disorder; F10.282 Alcohol dependence with alcohol-induced sleep disorder; D69.6 Thrombocytopenia, unspecified; D64.9 Anemia, unspecified; G40.509 Epileptic seizures related to external causes, not intractable, without status epilepticus; G62.9 Polyneuropathy, unspecified; J44.9 Chronic obstructive pulmonary disease, unspecified; K21.9 Gastro-esophageal reflux disease without esophagitis; H40.2231 Chronic angle-closure glaucoma, bilateral, mild stage; H26.8 Other specified cataract; K25.9 Gastric ulcer, unspecified as acute or chronic, without hemorrhage or perforation; M54.5 Low back pain; M12.9 Arthropathy, unspecified; N40.0 Benign prostatic hyperplasia without lower urinary tract symptoms; Z91.410 Personal history of adult physical and sexual abuse; Z99.89 Dependence on other enabling machines and devices; Z91.018 Allergy to other foods; Z88.0 Allergy status to penicillin; Z88.8 Allergy status to other drugs, medicaments and biological substances; Z91.013 Allergy to seafood
CPT/HCPCS: 36415; 73610-TC-LT-FY; 73610-TC-RT-FY; 73630-TC-LT; 73630-TC-RT-FY; 80053; 85027; 86780; 93005; 93010; Q0162; U0003

== ENCOUNTER 2020-08-15 17:46 | Inpatient (IN) | payer OTHER ==
--- OUTSIDE RECORDS SUMMARY | 2020-08-15 17:50 | XMS ---
:1960 Author Organization [facility] Support Name Relationship Address Phone UE, UNEMPLOYED Unavailable Unavailable Unavailable NIKKI GARCIA [address] [address] UE Unavailable Unavailable Unavailable NO, KIN OTHER RELATIONSHIP [id number] [facility] [place] [address] FORREST GARCIA SELF / SAME PATIENT [address] [address] NIKKI GARCIA [address] [address] Re-disclosure Warning The records that you are about to access may contain information from federally- assisted alcohol or drug abuse programs. If such information is present, then the following federally mandated warning applies: This information has been disclosed to you from records protected by federal confidentiality rules (42 CFR part 2). The federal rules prohibit you from making any further disclosure of this information unless further disclosure is expressly permitted by the written consent of the person to whom it pertains or as otherwise permitted by 42 CFR part 2. A general authorization for the release of medical or other information is NOT sufficient for this purpose. The Federal rules restrict any use of the information to criminally investigate or prosecute any alcohol or drug abuse patient.The records that you are about to access may contain highly sensitive health information, the redisclosure of which is protected by Article 27-F of the [facility] Public Health law. If you continue you may haveaccess to information: Regarding HIV / AIDS; Provided by facilities licensed or operated by the [facility] Office of Mental Health; or Provided by the [facility] Office for People With Developmental Disabilities. If such information is present, then the following [facility] mandated warning applies: This information has been disclosed to you from confidential records which are protected by state law. State law prohibits you from making any further disclosure of this information without the specific written consent of the person to whom it pertains, or as otherwise permitted by law. Any unauthorized further disclosure in violation of state law may result in a fine or [place] health care [facility] sentence or both. A general authorization for the release of medical or other information is NOT sufficient authorization for further disclosure. Insurance Providers Payer name Policy type Policy ID Covered Covered alliance party's Policy P mark / Coverage alliance party ID relationship to Suero Inf ormation type suero BEACON [id number] SP [id number] METROPLUS BEACON [id number] SP [id number] METROPLUS BEACON [id number] SP [id number] METROPLUS BEACON [id number] SP [id number] METROPLUS METRO PLUS [id number] SP [id number] HEALTH PLAN SELF PAY SP INSURANCE Results ID Date Data Source [id number] 08/05/2020 09:44:00 PM EDT [facility] Name Value Range Interpretation Description Data Sup porting Code Source(s) Document(s ) SARS-CoV-2 [facility] (COVID-19) RNA panel - Unspecified specimen by [facility] with probe detection This lab was ordered by EVANGELINA HAIR LT and reported by [facility]. ID Date Data Source [id number] 07/22/2020 01:02:00 PM EDT [facility] Name Value Range Interpretation Description Data Sup porting Code Source(s) Document(s ) SARS-CoV-2 [facility] (COVID-19) RNA panel - Unspecified specimen by [facility] with probe detection This lab was ordered by and reported by [facility]. ID Date Data Source [id number] 06/17/2020 07:00:00 PM EDT [facility] Name Value Range Interpretation Description Data Sup porting Code Source(s) Document(s ) SARS [facility] coronavirus 2 RNA This lab was ordered by [facility] and reported by [facility]. ID Date Data Source [id number] 04/19/2020 11:00:00 PM EDT [facility] Name Value Range Interpretation Description Data Sup porting Code Source(s) Document(s ) SARS [facility] CORONAVIRUS 2 RNA This lab was ordered by [facility] and reported by [facility]. Procedure
[2020-08-15 18:48] VITALS: BMI 29.5
--- NOTE | 2020-08-15 21:07 | BHS.RME ---
Substance Use & Tx History - Last Treatment Where was last treatment: ER ([place] , was @ [facility]) Physical/Psych/Mental Status - Behavior Eye Contact: Normal - Cooperativeness Cooperativeness: Cooperative - Thinking Thought Processes: Loosened - Physical Health Problems Is patient presently having any pain?: Yes (left leg ) Does patient presently have any injuries (include location): Yes (left leg ) Does patient currently have a fever: No CIWA Nausea/Vomitin-No Nausea/No Vomiting Muscle Tremors: None Anxiety: 1-Mildly Anxious Agitation: 0-Normal Activity Paroxysmal Sweats: No Perspiration Orientation: 0-Oriented Tacttile Disturbances: 0-None Auditory Disturbances: 0-None Visual Disturbances: 0-None Headache: 3-Moderate CIWA-Ar Total Score: 4
--- NOTE | 2020-08-15 21:14 | HP ---
CIWA Score Nausea/Vomitin-Mild Nausea/No Vomiting Muscle Tremors: None Anxiety: 2 Agitation: 0-Normal Activity Paroxysmal Sweats: No Perspiration Orientation: 0-Oriented Tacttile Disturbances: 0-None Auditory Disturbances: 0-None Visual Disturbances: 0-None Headache: 3-Moderate CIWA-Ar Total Score: 6 - Admission Criteria [facility]ASAS Guidelines: Admission for Medically Managed Detox: Requires at least one of the followin. CIWA greater than 12 2. Seizures within the past 24 hours 3. Delirium tremens within the past 24 hours 4. Hallucinations within the past 24 hours 5. Acute intervention needed for co occurring medical disorder 6. Acute intervention needed for co occurring psychiatric disorder 7. Severe withdrawal that cannot be handled at a lower level of care (continued vomiting, continued diarrhea, abnormal vital signs) requiring intravenous medication and/or fluids 8. 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 Pulmonary: Yes: COPD Gastrointestinal: Yes: Constipation Psych: Yes: Anxiety, Depression, Schizophrenia Musculoskeletal: Yes: Chronic low back pain ENT: Yes: Other (glaucoma, cataract) - Past Surgical History Past Surgical History: Yes: Cataract Removal, Joint Replacement (metal plate in Rt ankle after a fracture following a fall) - Smoking History Smoking history: Current every day smoker Have you smoked in the past 12 months: Yes Aproximately how many cigarettes per day: 20 - Alcohol/Substance Use Hx Alcohol Use: Yes Number of Drinks Daily: 2 (2 gallons of vodka) History of Substance Use: reports: None, Heroin - Social History ADL: Independent History of Recent Travel: No Admission ROS [facility] Allergies/Adverse Reactions: Allergies Allergy/AdvReac Type Severity Reaction Status Date / Time metoclopramide HCl Allergy Severe Swelling Verified 06/17/20 16:34 [From Reglan] Penicillins Allergy Severe Hives Verified 06/17/20 16:34 shellfish derived Allergy Severe Swelling Verified 06/17/20 16:34 orange juice AdvReac Mild Rash Verified 06/17/20 16:34 History of Present Illness: 59 y.o.male requesting detox from alcohol use , currently intoxicated MK 0.144 tobacco : 2 ppd , does not want nrt w/ patch or gum pmhx : OA , asthma , chronic pain , ambulating w/ cane , sinusitis , gerd , bph, left wrist cyst , C/spine frx > 10 years ago pshx : R ankle frx/ orif > 20 yrs ago ( fall on ice when young ) , r wrist laceration after punching glass Exam Limitations: Clinical Condition, Intoxication - Review of Systems Constitutional: Loss of Appetite EENT: reports: See HPI, Cataracts Respiratory: reports: No Symptoms reported Cardiac: reports: No Symptoms Reported, See HPI GI: reports: Nausea, Poor Appetite : reports: No Symptoms Reported Musculoskeletal: reports: See HPI, Other (left leg) Neuro: reports: Headache, Unsteady Gait Psychiatric: reports: Depressed Patient History - Patient Medical History Hx Anemia: No Hx Asthma: No Hx Chronic Obstructive Pulmonary Disease (COPD): Yes Hx Cancer: No Hx Cardiac Disorders: No Hx Congestive Heart Failure: No Hx Hypertension: No Hx Hypercholesterolemia: No Hx Pacemaker: No HX Cerebrovascular Accident: No Hx Seizures: Yes Hx Dementia: No Hx Diabetes: No Hx Gastrointestinal Disorders: Yes Hx Liver Disease: No Hx Genitourinary Disorders: No Hx Sexually Transmitted Disorders: No Hx Renal Disease (ESRD): No Hx Thyroid Disease: No Hx Human Immunodeficiency Virus (HIV): No (NEGATIVE 2013) Hx Hepatitis C: No Hx Depression: Yes Hx Suicide Attempt: No Hx Bipolar Disorder: No Hx Schizophrenia: No - Patient Surgical History Past Surgical History: Yes Hx Neurologic Surgery: Yes (C-SPINE FUSION IN 2016) Hx Cataract Extraction: No Hx Cardiac Surgery: No Hx Lung Surgery: No Hx Breast Surgery: No Hx Breast Biopsy: No Hx Abdominal Surgery: No Hx Appendectomy: No Hx Cholecystectomy: No Hx Genitourinary Surgery: No Hx Section: No Hx Orthopedic Surgery: Yes (Sx bilateral wrist and R ankle sx; ON THE NECK) Other Surgical History: HE FELL DOWN 4 DAYS AGO AND INJURED THE SCALP - STAPLED Anesthesia Reaction: No - PPD History Date: 12/22/19 Results: 0mm - Smoking Cessation Smoking history: Current every day smoker Have you smoked in the past 12 months: Yes Aproximately how many cigarettes per day: 20 Cigars Per Day: 0 Hx Chewing Tobacco Use: No Initiated information on smoking cessation: Yes 'Breaking Loose' booklet given: 08/16/20 - Substances abused Alcohol Substance route: Oral Frequency: Daily Amount used: 1 pint vodka Age of first use: 14 Date of last use: 08/15/20 Admission Physical Exam BHS - Vital Signs Vital Signs: Vital Signs - 24 hr 08/15/20 18:45 Temperature 97.9 F Pulse Rate 92 H Respiratory 18 Rate Blood Pressure 135/75 - Physical General Appearance: Yes: Disheveled, Mild Distress, Intoxicated, Irritable, Anxious HEENTM: Yes: EOMI, Normocephalic, Muffled/Hoarse Voice Respiratory: Yes: Chest Non-Tender, No Respiratory Distress, No Accessory Muscle Use, Wheezing Neck: Yes: No masses,lesions,Nodules, Trachea in good position Cardiology: Yes: Regular Rhythm, Regular Rate, S1, S2 Abdominal: Yes: Non Tender, Soft Musculoskeletal: Yes: Joint Stiffness (left knee), Other (unsteady gait , limping left) Extremities: Yes: Non-Tender, Pedal Edema, Other (decreased ROM left knee , no deformity) 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: Yes: Alert, Motor Strength 5/5, Depressed Affect Integumentary: Yes: Warm - Diagnostic (1) Alcohol intoxication Current Visit: Yes Status: Acute Qualifiers: Complication of substance-induced condition: uncomplicated Qualified Code(s): F10.920 - Alcohol use, unspecified with intoxication, uncomplicated Breathalyzer - Breathalyzer Breathalyzer: 0.144 Urine Drug Screen - Test Device Lot number: [id number] Expiration date: 03/04/22 - Control Is test valid?: Yes - Results Drug screen NEGATIVE: No Urine drug screen results: BZO-Benzodiazepines Inpatient Rehab Admission - Rehab Decision to Admit Inpatient rehab admission?: No
[2020-08-15] MEDS ORDERED: MAG HYDROX/AL HYDROX/SIMETH 30 ML UNIT-DOSE CUP PO PRN (21:16)
[2020-08-15] MEDS ORDERED: MAGNESIUM CITRATE 300 ML BOTTLE PO PRN (21:16)
[2020-08-15] MEDS ORDERED: BISMUTH SUBSALICYLATE 524 MG/30 ML UD PO PRN (21:16)
[2020-08-15] MEDS ORDERED: ONDANSETRON *ODT* 4 MG TABLET SL PRN (21:16)
[2020-08-15] MEDS ORDERED: MAGNESIUM HYDROX 2400MG/30ML ORAL SUSPENSION 30 ML CUP PO PRN (21:16)
[2020-08-15] MEDS ORDERED: IBUPROFEN 400 MG TABLET (FP) PO PRN (21:16)
[2020-08-15] MEDS ORDERED: MENTHOL/PHENOL 1 EACH UD MM PRN (21:16)
[2020-08-15] MEDS ORDERED: ACETAMINOPHEN 325 MG TABLET (FP) PO PRN (21:16)
[2020-08-15] MEDS ORDERED: ALBUTEROL SO4 HFA INHALER IH PRN (21:17)
[2020-08-15] MEDS ORDERED: chlordiazePOXIDE HCL 25 MG CAPSULE PO PRN (21:18)
--- OUTSIDE RECORDS SUMMARY | 2020-08-15 21:34 | XMS ---
:1960 [facility] Support Name Relationship Address Phone UE, UNEMPLOYED Unavailable Unavailable Unavailable NIKKI GARCIA [address] [phone] [place] [address] UE Unavailable Unavailable Unavailable NO, KIN OTHER RELATIONSHIP [id number] [place] [address] FORREST GARCIA SELF / SAME PATIENT [address] [address] NIKKI GARCIA [address] [address] Re-disclosure Warning The records that you are [...] is protected by Article 27-F of the [facility] Public Health law. If you continue you may haveaccess to information: Regarding HIV / AIDS; Provided by facilities licensed or operated by the [facility] Office of Mental Health; or Provided by the [facility] Office for People With Developmental Disabilities. If such information is present, then the following [facility] mandated warning applies: This information has been [...] law may result in a fine or senior living sentence or both. A general authorization for the release of medical or other information is NOT sufficient authorization for further disclosure. Insurance Providers Payer name Policy type Policy ID Covered Covered republican's Policy P mark / Coverage republican ID relationship to Suero Inf ormation type suero BEACON [id number] SP [id number] METR[employer]LUS BEACON [id number] SP [id number] METROPLUS BEACON [id number] SP [id number] METROPLUS BEACON [id number] SP [id number] METROPLUS METRO PLUS [id number] SP [id number] HEALTH PLAN SELF PAY SP INSURANCE Results ID Date Data Source [id number] 08/05/2020 09:44:00 PM EDT [facility] Name Value Range Interpretation Description Data Sup porting Code Source(s) Document(s ) SARS-CoV-2 [facility] (COVID-19) RNA panel - Unspecified specimen by [facility] with probe detection This lab was ordered by EVANGELINA HAIR LT and reported by [facility]. ID Date Data Source [id number] 07/22/2020 01:02:00 PM EDT [facility] Name Value Range Interpretation Description Data Sup porting Code Source(s) Document(s ) SARS-CoV-2 [facility] (COVID-19) RNA panel - Unspecified specimen by [facility] with probe detection This lab was ordered by and reported by [facility]. ID Date Data Source [id number] 06/17/2020 07:00:00 PM EDT [facility] Name Value Range Interpretation Description Data Sup porting Code Source(s) Document(s ) SARS [facility] coronavirus 2 RNA This lab was ordered by [facility] and reported by [facility]. ID Date Data Source [id number] 04/19/2020 11:00:00 PM EDT [facility] Name Value Range Interpretation Description Data Sup porting Code Source(s) Document(s ) SARS [facility] CORONAVIRUS 2 RNA This lab was ordered by [facility] and reported by [facility]. Procedure
[2020-08-15] MEDS: traZODone HCL 100 MG TABLET (FP) PO PRN (23:14)
[2020-08-15] MEDS: chlordiazePOXIDE HCL 25 MG CAPSULE PO SCH (23:14)
[2020-08-15] MEDS: LATANOPROST 0.005% OPHTH SOLN 2.5ML BOTTLE OU SCH (23:15)
[2020-08-15] MEDS: hydrOXYzine PAMOATE 25 MG CAPSULE (FP) PO PRN (23:15)
[2020-08-15] MEDS: THIAMINE HCL 100 MG TABLET (FP) PO SCH (23:15)
[2020-08-15] MEDS: METHOCARBAMOL 500 MG TABLET PO PRN (23:16)
[2020-08-15] MEDS: TIMOLOL 0.5% OPHTHALMIC SOL 5 ML BOTTLE OU SCH (23:16)
[2020-08-15] MEDS: MELATONIN 5 MG TABLETS PO SCH (23:16)
[2020-08-16] MEDS: chlordiazePOXIDE HCL 25 MG CAPSULE PO SCH ×4 (06:29→22:55)
[2020-08-16] MEDS: TAMSULOSIN HCL 0.4 MG CAP PO SCH (11:08)
[2020-08-16] MEDS: PRENATAL VITAMINS W/ FOLIC ACID TABLET (FP) PO SCH (11:08)
[2020-08-16] MEDS: FAMOTIDINE 20 MG TABLET PO SCH ×2 (11:08→11:12)
[2020-08-16] MEDS: TIMOLOL 0.5% OPHTHALMIC SOL 5 ML BOTTLE OU SCH ×2 (11:09→22:58)
[2020-08-16 11:20] LABS: ALBUMIN 3.7 g/dl (3.4-5.0); BLOOD UREA NITROGEN 5.9 mg/dL (7-18); CALCIUM 8.9 mg/dL (8.5-10.1); CREATININE 0.9 mg/dL (0.55-1.3); POTASSIUM 4.3 mmol/L (3.5-5.1); TOT PROT 7.4 g/dl (6.4-8.2)
[2020-08-16 11:45] LABS: HEMATOCRIT 34.9 % (35.4-49); HEMOGLOBIN 11.5 GM/dL (11.7-16.9); MCH 27.9 pg (25.7-33.7); MCHC 33.1 g/dl (32.0-35.9); MEAN CELL VOLUME 84.3 fl (80-96); MEAN PLT VOLUME 8.5 fl (7.5-11.1); PLATELET COUNT 340 K/MM3 (134-434); RBC 4.14 M/mm3 (4.00-5.60); RDW 16.9 % (11.9-15.9); WHITE BLOOD COUNT 4.9 K/mm3 (4.0-10.0)
--- NOTE | 2020-08-16 15:09 | PN ---
S CIWA - CIWA Score Nausea/Vomitin-Mild Nausea/No Vomiting Muscle Tremors: 2 Anxiety: 3 Agitation: 2 Paroxysmal Sweats: No Perspiration Orientation: 0-Oriented Tacttile Disturbances: 0-None Auditory Disturbances: 0-None Visual Disturbances: 2-Mild Sensitivity Headache: 2-Mild CIWA-Ar Total Score: 12 BHS Progress Note (SOAP) Subjective: 59 years old male was admitted on 08/15/20 for alcohol withdrawal sx management treating with librium detox regiment reports mask swelling his face around the checks and around his mouth states that his tongue has spots from the mask oral examine no spots noted mr allen is alert oriented x 3 speech clearly coherently no drooling no trouble chewing food nor swallowing food chlorohexidine oral rinse Objective: 08/16/20 15:09 Vital Signs - 24 hr 08/15/20 08/15/20 08/15/20 18:45 21:54 22:59 Temperature 97.9 F 97.9 F 97.5 F L Pulse Rate 92 H 92 H 91 H Respiratory 18 18 16 Rate Blood Pressure 135/75 135/75 134/81 O2 Sat by Pulse 96 Oximetry (%) 08/16/20 08/16/20 09:04 12:48 Temperature 97.5 F L 97.7 F Pulse Rate 96 H 80 Respiratory 20 18 Rate Blood Pressure 126/69 127/71 O2 Sat by Pulse 98 Oximetry (%) Laboratory Tests 08/16/20 08/16/20 07:30 07:30 WBC 4.9 RBC 4.14 Hgb 11.5 L Hct 34.9 L MCV 84.3 MCH 27.9 MCHC 33.1 RDW 16.9 H Plt Count 340 D MPV 8.5 Sodium 137 Potassium 4.3 Chloride 100 Carbon Dioxide 32 Anion Gap 6 L BUN 5.9 L Creatinine 0.9 Est GFR (CKD-EPI)AfAm 106.46 Est GFR (CKD-EPI)NonAf 91.86 Random Glucose 79 Calcium 8.9 Total Bilirubin 1.0 AST 21 ALT 24 Alkaline Phosphatase 121 H Total Protein 7.4 Albumin 3.7 08/16/20 15:09 covid pending Assessment: 08/16/20 15:10 alcohol withdrawal Plan: librium regiment
[2020-08-16] MEDS: ACETAMINOPHEN 325 MG TABLET (FP) PO PRN (22:50)
[2020-08-16] MEDS: traZODone HCL 100 MG TABLET (FP) PO PRN (22:55)
[2020-08-16] MEDS: CHLORHEXIDINE GLUCONATE 0.12% 15ML CUP MM SCH (22:56)
[2020-08-16] MEDS: METHOCARBAMOL 500 MG TABLET PO PRN (22:56)
[2020-08-16] MEDS: THIAMINE HCL 100 MG TABLET (FP) PO SCH (22:56)
[2020-08-16] MEDS: MELATONIN 5 MG TABLETS PO SCH (22:56)
[2020-08-16] MEDS: LATANOPROST 0.005% OPHTH SOLN 2.5ML BOTTLE OU SCH (22:57)
[2020-08-16] MEDS: hydrOXYzine PAMOATE 25 MG CAPSULE (FP) PO PRN (23:05)
[2020-08-17] MEDS: chlordiazePOXIDE HCL 25 MG CAPSULE PO SCH ×4 (08:17→23:02)
[2020-08-17] MEDS: TAMSULOSIN HCL 0.4 MG CAP PO SCH (10:07)
[2020-08-17] MEDS: FAMOTIDINE 20 MG TABLET PO SCH (10:07)
[2020-08-17] MEDS: CHLORHEXIDINE GLUCONATE 0.12% 15ML CUP MM SCH ×2 (10:09→23:38)
[2020-08-17] MEDS: PRENATAL VITAMINS W/ FOLIC ACID TABLET (FP) PO SCH (10:09)
[2020-08-17] MEDS: METHOCARBAMOL 500 MG TABLET PO PRN ×2 (10:11→23:04)
[2020-08-17] MEDS: ACETAMINOPHEN 325 MG TABLET (FP) PO PRN ×2 (10:13→18:05)
[2020-08-17] MEDS: hydrOXYzine PAMOATE 25 MG CAPSULE (FP) PO PRN ×3 (10:13→23:04)
--- NOTE | 2020-08-17 10:41 | PN ---
S CIWA - CIWA Score Nausea/Vomitin-Mild Nausea/No Vomiting Muscle Tremors: 2 Anxiety: 2 Agitation: 2 Paroxysmal Sweats: No Perspiration Orientation: 0-Oriented Tacttile Disturbances: 1-Very Mild Itch/Numbness Auditory Disturbances: 0-None Visual Disturbances: 0-None Headache: 2-Mild CIWA-Ar Total Score: 10 S Progress Note (SOAP) Subjective: alert,irritable,anxious,interrupted sleep,tremor,aching pain in back,left thig h,both feet Objective: 08/17/20 10:37 Vital Signs Temperature 98.2 F 08/17/20 09:02 Pulse Rate 94 H 08/17/20 09:02 Respiratory Rate 20 08/17/20 09:02 Blood Pressure 96/64 08/17/20 09:02 O2 Sat by Pulse Oximetry (%) 98 08/17/20 05:31 Laboratory Last Values WBC 4.9 K/mm3 (4.0-10.0) 08/16/20 07:30 RBC 4.14 M/mm3 (4.00-5.60) 08/16/20 07:30 Hgb 11.5 GM/dL (11.7-16.9) L 08/16/20 07:30 Hct 34.9 % (35.4-49) L 08/16/20 07:30 MCV 84.3 fl (80-96) 08/16/20 07:30 MCH 27.9 pg (25.7-33.7) 08/16/20 07:30 MCHC 33.1 g/dl (32.0-35.9) 08/16/20 07:30 RDW 16.9 % (11.9-15.9) H 08/16/20 07:30 Plt Count 340 K/MM3 (134-434) D 08/16/20 07:30 MPV 8.5 fl (7.5-11.1) 08/16/20 07:30 Sodium 137 mmol/L (136-145) 08/16/20 07:30 Potassium 4.3 mmol/L (3.5-5.1) 08/16/20 07:30 Chloride 100 mmol/L (98-107) 08/16/20 07:30 Carbon Dioxide 32 mmol/L (21-32) 08/16/20 07:30 Anion Gap 6 MMOL/L (8-16) L 08/16/20 07:30 BUN 5.9 mg/dL (7-18) L 08/16/20 07:30 Creatinine 0.9 mg/dL (0.55-1.3) 08/16/20 07:30 Est GFR (CKD-EPI)AfAm 106.46 08/16/20 07:30 Est GFR (CKD-EPI)NonAf 91.86 08/16/20 07:30 Random Glucose 79 mg/dL (74-106) 08/16/20 07:30 Calcium 8.9 mg/dL (8.5-10.1) 08/16/20 07:30 Total Bilirubin 1.0 mg/dL (0.2-1) 08/16/20 07:30 AST 21 U/L (15-37) 08/16/20 07:30 ALT 24 U/L (13-61) 08/16/20 07:30 Alkaline Phosphatase 121 U/L (45-117) H 08/16/20 07:30 Total Protein 7.4 g/dl (6.4-8.2) 08/16/20 07:30 Albumin 3.7 g/dl (3.4-5.0) 08/16/20 07:30 Assessment: 08/17/20 10:38 withdrawal symptom Plan: continue detox librium regimen,history of neuropathy on neurontin 300 mgs po tid ordered,ice pack left thigh ,vertical borer consultation , to use wheelchair as necessary,fall precaution
[2020-08-17] MEDS: TIMOLOL 0.5% OPHTHALMIC SOL 5 ML BOTTLE OU SCH ×2 (11:31→22:00)
[2020-08-17] MEDS: GABAPENTIN 300 MG CAPSULE PO SCH ×2 (13:27→23:02)
[2020-08-17] MEDS: MELATONIN 5 MG TABLETS PO SCH (23:02)
[2020-08-17] MEDS: traZODone HCL 100 MG TABLET (FP) PO PRN (23:03)
[2020-08-17] MEDS: THIAMINE HCL 100 MG TABLET (FP) PO SCH (23:03)
[2020-08-17] MEDS: LATANOPROST 0.005% OPHTH SOLN 2.5ML BOTTLE OU SCH (23:03)
[2020-08-18] MEDS ORDERED: chlordiazePOXIDE HCL 10 MG CAPSULE PO PRN
[2020-08-18] MEDS: GABAPENTIN 300 MG CAPSULE PO SCH ×3 (07:08→22:47)
[2020-08-18] MEDS: chlordiazePOXIDE HCL 10 MG CAPSULE PO SCH ×4 (07:08→22:47)
[2020-08-18] MEDS: TIMOLOL 0.5% OPHTHALMIC SOL 5 ML BOTTLE OU SCH ×2 (07:09→17:56)
--- NOTE | 2020-08-18 09:39 | PN ---
S CIWA - CIWA Score Nausea/Vomitin Muscle Tremors: 2 Anxiety: 2 Agitation: 2 Paroxysmal Sweats: No Perspiration Orientation: 0-Oriented Tacttile Disturbances: 1-Very Mild Itch/Numbness Auditory Disturbances: 0-None Visual Disturbances: 0-None Headache: 2-Mild CIWA-Ar Total Score: 11 S Progress Note (SOAP) Subjective: alert,irritable,anxious,interrupted sleep,tremor,aching pain Objective: 08/18/20 15:35 Vital Signs Temperature 97.3 F L 08/18/20 12:39 Pulse Rate 85 08/18/20 12:39 Respiratory Rate 20 08/18/20 12:39 Blood Pressure 95/58 L 08/18/20 12:39 O2 Sat by Pulse Oximetry (%) 97 08/18/20 12:39 Laboratory Last Values WBC 4.9 K/mm3 (4.0-10.0) 08/16/20 07:30 RBC 4.14 M/mm3 (4.00-5.60) 08/16/20 07:30 Hgb 11.5 GM/dL (11.7-16.9) L 08/16/20 07:30 Hct 34.9 % (35.4-49) L 08/16/20 07:30 MCV 84.3 fl (80-96) 08/16/20 07:30 MCH 27.9 pg (25.7-33.7) 08/16/20 07:30 MCHC 33.1 g/dl (32.0-35.9) 08/16/20 07:30 RDW 16.9 % (11.9-15.9) H 08/16/20 07:30 Plt Count 340 K/MM3 (134-434) D 08/16/20 07:30 MPV 8.5 fl (7.5-11.1) 08/16/20 07:30 Sodium 137 mmol/L (136-145) 08/16/20 07:30 Potassium 4.3 mmol/L (3.5-5.1) 08/16/20 07:30 Chloride 100 mmol/L (98-107) 08/16/20 07:30 Carbon Dioxide 32 mmol/L (21-32) 08/16/20 07:30 Anion Gap 6 MMOL/L (8-16) L 08/16/20 07:30 BUN 5.9 mg/dL (7-18) L 08/16/20 07:30 Creatinine 0.9 mg/dL (0.55-1.3) 08/16/20 07:30 Est GFR (CKD-EPI)AfAm 106.46 08/16/20 07:30 Est GFR (CKD-EPI)NonAf 91.86 08/16/20 07:30 Random Glucose 79 mg/dL (74-106) 08/16/20 07:30 Calcium 8.9 mg/dL (8.5-10.1) 08/16/20 07:30 Total Bilirubin 1.0 mg/dL (0.2-1) 08/16/20 07:30 AST 21 U/L (15-37) 08/16/20 07:30 ALT 24 U/L (13-61) 08/16/20 07:30 Alkaline Phosphatase 121 U/L (45-117) H 08/16/20 07:30 Total Protein 7.4 g/dl (6.4-8.2) 08/16/20 07:30 Albumin 3.7 g/dl (3.4-5.0) 08/16/20 07:30 Assessment: 08/18/20 15:36 withdrawal symptom Plan: continue detox librium regimen,tigan 200 mgs im q 8hrs for nausea and vomiting,aveeno soap
[2020-08-18] MEDS ORDERED: TRIMETHOBENZAMIDE HCL 200MG/2ML INJ IM PRN (10:31)
[2020-08-18] MEDS: ACETAMINOPHEN 325 MG TABLET (FP) PO PRN (11:02)
[2020-08-18] MEDS: TAMSULOSIN HCL 0.4 MG CAP PO SCH (11:03)
[2020-08-18] MEDS: FAMOTIDINE 20 MG TABLET PO SCH (11:03)
[2020-08-18] MEDS: hydrOXYzine PAMOATE 25 MG CAPSULE (FP) PO PRN ×2 (11:03→23:08)
[2020-08-18] MEDS: CHLORHEXIDINE GLUCONATE 0.12% 15ML CUP MM SCH ×2 (11:04→22:54)
[2020-08-18] MEDS: METHOCARBAMOL 500 MG TABLET PO PRN ×2 (11:05→23:04)
[2020-08-18] MEDS: PRENATAL VITAMINS W/ FOLIC ACID TABLET (FP) PO SCH (11:05)
[2020-08-18] MEDS ORDERED: COLLOIDAL OATMEAL 1 BAR EACH TP PRN (12:50)
[2020-08-18] MEDS: MELATONIN 5 MG TABLETS PO SCH (22:47)
[2020-08-18] MEDS: LATANOPROST 0.005% OPHTH SOLN 2.5ML BOTTLE OU SCH (22:47)
[2020-08-18] MEDS: THIAMINE HCL 100 MG TABLET (FP) PO SCH (22:47)
[2020-08-18] MEDS: traZODone HCL 100 MG TABLET (FP) PO PRN (23:04)
[2020-08-19] MEDS: GABAPENTIN 300 MG CAPSULE PO SCH ×3 (06:32→21:18)
[2020-08-19] MEDS: chlordiazePOXIDE HCL 10 MG CAPSULE PO SCH ×2 (06:32→17:43)
[2020-08-19] MEDS: TIMOLOL 0.5% OPHTHALMIC SOL 5 ML BOTTLE OU SCH ×2 (06:33→17:43)
--- NOTE | 2020-08-19 08:55 | PN ---
[facility] CIWA - CIWA Score Nausea/Vomitin-Mild Nausea/No Vomiting Muscle Tremors: 2 Anxiety: 2 Agitation: 2 Paroxysmal Sweats: No Perspiration Orientation: 0-Oriented Tacttile Disturbances: 1-Very Mild Itch/Numbness Auditory Disturbances: 0-None Visual Disturbances: 0-None Headache: 1-Very Mild CIWA-Ar Total Score: 9 S Progress Note (SOAP) Subjective: alert,irritable,ambulation on the wheelchair,pain in the left thigh Objective: 08/19/20 11:40 Vital Signs Temperature 97.3 F L 08/19/20 08:39 Pulse Rate 70 08/19/20 08:39 Respiratory Rate 18 08/19/20 08:39 Blood Pressure 113/72 08/19/20 08:39 O2 Sat by Pulse Oximetry (%) 98 08/18/20 20:43 Laboratory Last Values WBC 4.9 K/mm3 (4.0-10.0) 08/16/20 07:30 RBC 4.14 M/mm3 (4.00-5.60) 08/16/20 07:30 Hgb 11.5 GM/dL (11.7-16.9) L 08/16/20 07:30 Hct 34.9 % (35.4-49) L 08/16/20 07:30 MCV 84.3 fl (80-96) 08/16/20 07:30 MCH 27.9 pg (25.7-33.7) 08/16/20 07:30 MCHC 33.1 g/dl (32.0-35.9) 08/16/20 07:30 RDW 16.9 % (11.9-15.9) H 08/16/20 07:30 Plt Count 340 K/MM3 (134-434) D 08/16/20 07:30 MPV 8.5 fl (7.5-11.1) 08/16/20 07:30 Sodium 137 mmol/L (136-145) 08/16/20 07:30 Potassium 4.3 mmol/L (3.5-5.1) 08/16/20 07:30 Chloride 100 mmol/L (98-107) 08/16/20 07:30 Carbon Dioxide 32 mmol/L (21-32) 08/16/20 07:30 Anion Gap 6 MMOL/L (8-16) L 08/16/20 07:30 BUN 5.9 mg/dL (7-18) L 08/16/20 07:30 Creatinine 0.9 mg/dL (0.55-1.3) 08/16/20 07:30 Est GFR (CKD-EPI)AfAm 106.46 08/16/20 07:30 Est GFR (CKD-EPI)NonAf 91.86 08/16/20 07:30 Random Glucose 79 mg/dL (74-106) 08/16/20 07:30 Calcium 8.9 mg/dL (8.5-10.1) 08/16/20 07:30 Total Bilirubin 1.0 mg/dL (0.2-1) 08/16/20 07:30 AST 21 U/L (15-37) 08/16/20 07:30 ALT 24 U/L (13-61) 08/16/20 07:30 Alkaline Phosphatase 121 U/L (45-117) H 08/16/20 07:30 Total Protein 7.4 g/dl (6.4-8.2) 08/16/20 07:30 Albumin 3.7 g/dl (3.4-5.0) 08/16/20 07:30 COVID-19 ([facility]) Not detected 08/15/20 10:19 Assessment: 08/19/20 11:41 withdrawal symptom Plan: continue detox librium regimen,maryanne bandage left thigh in daytime,
[2020-08-19] MEDS: TAMSULOSIN HCL 0.4 MG CAP PO SCH (10:05)
[2020-08-19] MEDS: hydrOXYzine PAMOATE 25 MG CAPSULE (FP) PO PRN ×2 (10:06→21:18)
[2020-08-19] MEDS: FAMOTIDINE 20 MG TABLET PO SCH (10:06)
[2020-08-19] MEDS: METHOCARBAMOL 500 MG TABLET PO PRN ×2 (10:06→21:18)
[2020-08-19] MEDS: ACETAMINOPHEN 325 MG TABLET (FP) PO PRN (10:06)
[2020-08-19] MEDS: PRENATAL VITAMINS W/ FOLIC ACID TABLET (FP) PO SCH (10:07)
[2020-08-19] MEDS: CHLORHEXIDINE GLUCONATE 0.12% 15ML CUP MM SCH ×2 (15:22→21:21)
[2020-08-19] MEDS ORDERED: MASKS NR ONE (20:46)
[2020-08-19] MEDS: THIAMINE HCL 100 MG TABLET (FP) PO SCH (21:18)
[2020-08-19] MEDS: MELATONIN 5 MG TABLETS PO SCH (21:19)
[2020-08-19] MEDS: LATANOPROST 0.005% OPHTH SOLN 2.5ML BOTTLE OU SCH (21:19)
[2020-08-19] MEDS: traZODone HCL 100 MG TABLET (FP) PO PRN (21:19)
[2020-08-20] MEDS ORDERED: chlordiazePOXIDE HCL 10 MG CAPSULE PO ONE (05:00)
[2020-08-20] MEDS: TIMOLOL 0.5% OPHTHALMIC SOL 5 ML BOTTLE OU SCH ×2 (06:49→18:09)
[2020-08-20] MEDS: GABAPENTIN 300 MG CAPSULE PO SCH ×3 (06:49→22:53)
[2020-08-20] MEDS: TAMSULOSIN HCL 0.4 MG CAP PO SCH (10:43)
[2020-08-20] MEDS: ACETAMINOPHEN 325 MG TABLET (FP) PO PRN (10:44)
[2020-08-20] MEDS: METHOCARBAMOL 500 MG TABLET PO PRN ×2 (10:44→22:53)
[2020-08-20] MEDS: PRENATAL VITAMINS W/ FOLIC ACID TABLET (FP) PO SCH (10:46)
[2020-08-20] MEDS: CHLORHEXIDINE GLUCONATE 0.12% 15ML CUP MM SCH ×2 (10:46→22:53)
[2020-08-20] MEDS: FAMOTIDINE 20 MG TABLET PO SCH (10:46)
--- NOTE | 2020-08-20 10:47 | PN ---
S CIWA - CIWA Score Nausea/Vomitin-No Nausea/No Vomiting Muscle Tremors: 1-None Visible, but [place] Anxiety: 2 Agitation: 2 Paroxysmal Sweats: No Perspiration Orientation: 0-Oriented Tacttile Disturbances: 0-None Auditory Disturbances: 0-None Visual Disturbances: 0-None Headache: 2-Mild CIWA-Ar Total Score: 7 S Progress Note (SOAP) Subjective: alert,irritable,anxious,feel weak,pain in the left thigh and feet,neuropathy, arthritis,ambulate with cane,alternate with wheelchair Objective: 08/20/20 16:34 Vital Signs Temperature 98.0 F 08/20/20 12:47 Pulse Rate 94 H 08/20/20 12:47 Respiratory Rate 20 08/20/20 12:47 Blood Pressure 104/65 08/20/20 12:47 O2 Sat by Pulse Oximetry (%) 99 08/20/20 12:47 08/20/20 16:34 Laboratory Last Values WBC 4.9 K/mm3 (4.0-10.0) 08/16/20 07:30 RBC 4.14 M/mm3 (4.00-5.60) 08/16/20 07:30 Hgb 11.5 GM/dL (11.7-16.9) L 08/16/20 07:30 Hct 34.9 % (35.4-49) L 08/16/20 07:30 MCV 84.3 fl (80-96) 08/16/20 07:30 MCH 27.9 pg (25.7-33.7) 08/16/20 07:30 MCHC 33.1 g/dl (32.0-35.9) 08/16/20 07:30 RDW 16.9 % (11.9-15.9) H 08/16/20 07:30 Plt Count 340 K/MM3 (134-434) D 08/16/20 07:30 MPV 8.5 fl (7.5-11.1) 08/16/20 07:30 Sodium 137 mmol/L (136-145) 08/16/20 07:30 Potassium 4.3 mmol/L (3.5-5.1) 08/16/20 07:30 Chloride 100 mmol/L (98-107) 08/16/20 07:30 Carbon Dioxide 32 mmol/L (21-32) 08/16/20 07:30 Anion Gap 6 MMOL/L (8-16) L 08/16/20 07:30 BUN 5.9 mg/dL (7-18) L 08/16/20 07:30 Creatinine 0.9 mg/dL (0.55-1.3) 08/16/20 07:30 Est GFR (CKD-EPI)AfAm 106.46 08/16/20 07:30 Est GFR (CKD-EPI)NonAf 91.86 08/16/20 07:30 Random Glucose 79 mg/dL (74-106) 08/16/20 07:30 Calcium 8.9 mg/dL (8.5-10.1) 08/16/20 07:30 Total Bilirubin 1.0 mg/dL (0.2-1) 08/16/20 07:30 AST 21 U/L (15-37) 08/16/20 07:30 ALT 24 U/L (13-61) 08/16/20 07:30 Alkaline Phosphatase 121 U/L (45-117) H 08/16/20 07:30 Total Protein 7.4 g/dl (6.4-8.2) 08/16/20 07:30 Albumin 3.7 g/dl (3.4-5.0) 08/16/20 07:30 COVID-19 ([facility]) Not detected (Not Detected) 08/15/20 10:19 Assessment: 08/20/20 16:34 withdrawal symptom Plan: continue detox librium regimen,will monitor patient for 24 hrs,possible discharge in am
[2020-08-20] MEDS: hydrOXYzine PAMOATE 25 MG CAPSULE (FP) PO PRN (22:53)
[2020-08-20] MEDS: traZODone HCL 100 MG TABLET (FP) PO PRN (22:53)
[2020-08-20] MEDS: MELATONIN 5 MG TABLETS PO SCH (22:53)
[2020-08-20] MEDS: LATANOPROST 0.005% OPHTH SOLN 2.5ML BOTTLE OU SCH (22:53)
[2020-08-20] MEDS: THIAMINE HCL 100 MG TABLET (FP) PO SCH (22:53)
[2020-08-21] MEDS ORDERED: chlordiazePOXIDE HCL 10 MG CAPSULE PO ONE (06:00)
[2020-08-21] MEDS: TIMOLOL 0.5% OPHTHALMIC SOL 5 ML BOTTLE OU SCH (06:13)
[2020-08-21] MEDS: GABAPENTIN 300 MG CAPSULE PO SCH (06:13)
[2020-08-21] MEDS ORDERED: MASKS NR ONE (07:31)
--- NOTE | 2020-08-21 08:55 | DS ---
[facility] Detox Discharge Summary Admission Date: 08/15/20 Discharge Date: 08/21/20 - History Present History: Alcohol Dependence Additional Comments: alert,oriented x 3 ambulation on the unit with cane lung clear on auscultation abdomen soft,no pain,no tenderness detox completed,no withdrawal symptom stable for discharge today follow up with after care program rehab at [facility] as arrangement total time of discharge 35 minutes Pertinent Past History: asthma bph arthritis glaucoma both eyes ambulation with cane gerd - Physical Exam Results Vital Signs: Vital Signs Temperature 97.3 F L 08/20/20 21:10 Pulse Rate 90 08/20/20 21:10 Respiratory Rate 18 08/20/20 21:10 Blood Pressure 124/69 08/20/20 21:10 O2 Sat by Pulse Oximetry (%) 97 08/20/20 21:10 Pertinent Admission Physical Exam Findings: withdrawal signs and symptom Vital Signs Temperature 97.2 F L 08/21/20 09:02 Pulse Rate 92 H 08/21/20 09:02 Respiratory Rate 20 08/21/20 09:02 Blood Pressure 90/59 L 08/21/20 09:02 O2 Sat by Pulse Oximetry (%) 97 08/20/20 21:10 Laboratory Last Values WBC 4.9 K/mm3 (4.0-10.0) 08/16/20 07:30 RBC 4.14 M/mm3 (4.00-5.60) 08/16/20 07:30 Hgb 11.5 GM/dL (11.7-16.9) L 08/16/20 07:30 Hct 34.9 % (35.4-49) L 08/16/20 07:30 MCV 84.3 fl (80-96) 08/16/20 07:30 MCH 27.9 pg (25.7-33.7) 08/16/20 07:30 MCHC 33.1 g/dl (32.0-35.9) 08/16/20 07:30 RDW 16.9 % (11.9-15.9) H 08/16/20 07:30 Plt Count 340 K/MM3 (134-434) D 08/16/20 07:30 MPV 8.5 fl (7.5-11.1) 08/16/20 07:30 Sodium 137 mmol/L (136-145) 08/16/20 07:30 Potassium 4.3 mmol/L (3.5-5.1) 08/16/20 07:30 Chloride 100 mmol/L (98-107) 08/16/20 07:30 Carbon Dioxide 32 mmol/L (21-32) 08/16/20 07:30 Anion Gap 6 MMOL/L (8-16) L 08/16/20 07:30 BUN 5.9 mg/dL (7-18) L 08/16/20 07:30 Creatinine 0.9 mg/dL (0.55-1.3) 08/16/20 07:30 Est GFR (CKD-EPI)AfAm 106.46 08/16/20 07:30 Est GFR (CKD-EPI)NonAf 91.86 08/16/20 07:30 Random Glucose 79 mg/dL (74-106) 08/16/20 07:30 Calcium 8.9 mg/dL (8.5-10.1) 08/16/20 07:30 Total Bilirubin 1.0 mg/dL (0.2-1) 08/16/20 07:30 AST 21 U/L (15-37) 08/16/20 07:30 ALT 24 U/L (13-61) 08/16/20 07:30 Alkaline Phosphatase 121 U/L (45-117) H 08/16/20 07:30 Total Protein 7.4 g/dl (6.4-8.2) 08/16/20 07:30 Albumin 3.7 g/dl (3.4-5.0) 08/16/20 07:30 COVID-19 ([facility]) Not detected (Not Detected) 08/15/20 10:19 - Treatment Hospital Course: Detox Protocol Followed, Detoxed Safely, Responded well, Discharged Condition Good, Rehab Referral Accepted Patient has Accepted a Rehab Referral to: [facility] - Medication Discharge Medications: Ambulatory Orders traZODone HCL [Desyrel -] 100 mg PO HS #30 tablet 10/31/18 Albuterol Sulfate Inhaler - [Ventolin HFA Inhaler -] 2 inh PO Q4H PRN #1 inhaler 07/10/20 Gabapentin [Neurontin -] 300 mg PO TID #42 capsule 07/10/20 Latanoprost 0.005% Eye Drops [Xalatan 0.005% Eye Drops -] 1 drop OU HS #1 bottle 07/10/20 Tamsulosin HCl [Flomax -] 0.4 mg PO DAILY #30 cap.er.24h 07/10/20 Timolol 0.5% [Timoptic 0.5%] 1 drop OU BID #1 drops 07/10/20 traZODone HCL [Desyrel -] 100 mg PO HS #30 tablet 07/12/20 - Diagnosis (1) Alcohol dependence with uncomplicated withdrawal Status: Acute (2) Arthritis Status: Chronic (3) Asthma Status: Chronic Qualifiers: Asthma severity: unspecified severity Asthma persistence: unspecified Asthma complication type: uncomplicated Qualified Code(s): J45.909 - Unspecified asthma, uncomplicated (4) BPH (benign prostatic hypertrophy) Status: Chronic Qualifiers: Lower urinary tract symptom presence: symptoms absent Qualified Code(s): N40.0 - Benign prostatic hyperplasia without lower urinary tract symptoms (5) Chronic low back pain Status: Chronic Qualifiers: Back pain laterality: unspecified Sciatica presence: unspecified whether sciatica present Qualified Code(s): M54.5 - Low back pain; G89.29 - Other chronic pain (6) GERD (gastroesophageal reflux disease) Status: Chronic Qualifiers: Esophagitis presence: esophagitis presence not specified Qualified Code(s): K21.9 - Gastro-esophageal reflux disease without esophagitis (7) Use of cane as ambulatory aid Status: Chronic (8) Glaucoma Status: Acute - AMA Did Patient Leave Against Medical Advice: No
--- NOTE | 2020-08-21 08:55 | PN ---
[facility] CIWA - CIWA Score Nausea/Vomitin-No Nausea/No Vomiting Muscle Tremors: None Anxiety: 1-Mildly Anxious Agitation: 0-Normal Activity Paroxysmal Sweats: No Perspiration Orientation: 0-Oriented Tacttile Disturbances: 0-None Auditory Disturbances: 0-None Visual Disturbances: 0-None Headache: 0-None Present CIWA-Ar Total Score: 1 S Progress Note (SOAP) Subjective: alert,no complaint Objective: 08/21/20 15:18 Vital Signs Temperature 97.2 F L 08/21/20 09:02 Pulse Rate 92 H 08/21/20 09:02 Respiratory Rate 08/21/20 09:02 Blood Pressure 90/59 L 08/21/20 09:02 O2 Sat by Pulse Oximetry (%) 97 08/20/20 21:10 Assessment: 08/21/20 15:18 detox completed,no withdrawal symptom Plan: stable for discharge today,follow up with rehab [facility] as arrangement
[2020-08-21 09:46] VITALS: BP 90/59; PULSE 92; TEMP 97.2
== END 2020-08-21 09:18 | disposition home or self-care (01) | DRG 775 ==
LOC: YASAS 17:46 → Y6N 21:31 → Y3N 22:04
PROVIDERS: ADMIT Allergy & Immunology; ATTEND Allergy & Immunology
PROC: HZ2ZZZZ Detoxification Services for Substance Abuse Treatment (ICD-10-PCS; principal; 2020-08-15)
DX: F10.230 Alcohol dependence with withdrawal, uncomplicated (principal); F10.220 Alcohol dependence with intoxication, uncomplicated; F17.210 Nicotine dependence, cigarettes, uncomplicated; F41.9 Anxiety disorder, unspecified; F32.9 Major depressive disorder, single episode, unspecified; F20.9 Schizophrenia, unspecified; G62.9 Polyneuropathy, unspecified; G40.909 Epilepsy, unspecified, not intractable, without status epilepticus; H40.9 Unspecified glaucoma; J44.9 Chronic obstructive pulmonary disease, unspecified; K21.9 Gastro-esophageal reflux disease without esophagitis; M12.9 Arthropathy, unspecified; M54.5 Low back pain; G89.29 Other chronic pain; N40.0 Benign prostatic hyperplasia without lower urinary tract symptoms; Z96.661 Presence of right artificial ankle joint; Z98.1 Arthrodesis status; Z98.42 Cataract extraction status, left eye; Z98.890 Other specified postprocedural states; Z88.0 Allergy status to penicillin; Z88.8 Allergy status to other drugs, medicaments and biological substances; Z91.013 Allergy to seafood; Z91.018 Allergy to other foods
CPT/HCPCS: 36415; 80053; 85027; U0003

== ENCOUNTER 2020-09-21 14:50 | Inpatient (IN) | payer OTHER ==
[2020-09-21] MEDS ORDERED: LOPERAMIDE HCL 2 MG CAPSULE PO PRN (19:39)
[2020-09-21] MEDS ORDERED: IBUPROFEN 400 MG TABLET (FP) PO PRN (19:39)
[2020-09-21] MEDS ORDERED: NICOTINE POLACRILEX 2 MG GUM BUC PRN (19:39)
[2020-09-21] MEDS ORDERED: LATANOPROST 0.005% OPHTH SOLN 2.5ML BOTTLE OU SCH (22:00)
[2020-09-21] MEDS: traZODone HCL 100 MG TABLET (FP) PO SCH (22:08)
[2020-09-21] MEDS: THIAMINE HCL 100 MG TABLET (FP) PO SCH (22:08)
[2020-09-21] MEDS: GABAPENTIN 300 MG CAPSULE PO SCH (22:08)
[2020-09-21] MEDS: MELATONIN 5 MG TABLETS PO SCH (22:08)
[2020-09-21] MEDS: ALBUTEROL SO4 HFA INHALER IH PRN (22:09)
[2020-09-21] MEDS: TIMOLOL 0.5% OPHTHALMIC SOL 5 ML BOTTLE OU SCH (22:09)
[2020-09-21] MEDS: MENTHOL/PHENOL 1 EACH UD MM PRN (22:15)
[2020-09-22] MEDS: GABAPENTIN 300 MG CAPSULE PO SCH ×3 (06:59→21:40)
[2020-09-22] MEDS: ACETAMINOPHEN 325 MG TABLET (FP) PO PRN ×3 (07:00→21:41)
[2020-09-22] MEDS: PRENATAL VITAMINS W/ FOLIC ACID TABLET (FP) PO SCH (10:44)
[2020-09-22] MEDS: TAMSULOSIN HCL 0.4 MG CAP PO SCH (10:44)
[2020-09-22] MEDS: FAMOTIDINE 20 MG TABLET PO SCH (10:45)
[2020-09-22] MEDS: TIMOLOL 0.5% OPHTHALMIC SOL 5 ML BOTTLE OU SCH ×2 (10:45→21:43)
[2020-09-22] MEDS: NICOTINE 7 MG/24 HOURS TOPICAL PATCH TD SCH (10:45)
[2020-09-22] MEDS: LIDOCAINE VISCOUS 2% ORAL/TOP 20 ML UNIT-DOSE CUP MM PRN (10:47)
[2020-09-22] MEDS: guaiFENesin 200 MG/10 ML 10 ML UNIT-DOSE CUPS PO PRN (10:48)
[2020-09-22] MEDS: ALBUTEROL SO4 HFA INHALER IH PRN ×2 (12:02→21:37)
[2020-09-22] MEDS ORDERED: BACITRACIN 15 GM TUBE TOPICAL OINTMENT TP SCH (16:00)
[2020-09-22] MEDS: METHOCARBAMOL 500 MG TABLET PO PRN (17:38)
[2020-09-22] MEDS: COLLOIDAL OATMEAL 1 BAR EACH TP SCH (17:39)
[2020-09-22] MEDS: DOCUSATE SODIUM 100 MG CAPSULE (FP) PO SCH (21:39)
[2020-09-22] MEDS: THIAMINE HCL 100 MG TABLET (FP) PO SCH (21:39)
[2020-09-22] MEDS: traZODone HCL 100 MG TABLET (FP) PO SCH (21:40)
[2020-09-22] MEDS: MELATONIN 5 MG TABLETS PO SCH (21:40)
[2020-09-22] MEDS: LATANOPROST 0.005% OPHTH SOLN 2.5ML BOTTLE OU SCH (21:43)
[2020-09-23] MEDS: GABAPENTIN 300 MG CAPSULE PO SCH ×3 (06:27→21:27)
[2020-09-23] MEDS: ACETAMINOPHEN 325 MG TABLET (FP) PO PRN ×3 (06:28→21:28)
[2020-09-23] MEDS: METHOCARBAMOL 500 MG TABLET PO PRN ×3 (06:28→21:27)
[2020-09-23] MEDS: TAMSULOSIN HCL 0.4 MG CAP PO SCH (10:04)
[2020-09-23] MEDS: PRENATAL VITAMINS W/ FOLIC ACID TABLET (FP) PO SCH (10:04)
[2020-09-23] MEDS: COLLOIDAL OATMEAL 1 BAR EACH TP SCH (10:04)
[2020-09-23] MEDS: FAMOTIDINE 20 MG TABLET PO SCH (10:05)
[2020-09-23] MEDS: NICOTINE 7 MG/24 HOURS TOPICAL PATCH TD SCH (10:05)
[2020-09-23] MEDS: BACITRACIN 0.9 GM PACKET TP SCH (10:05)
[2020-09-23] MEDS: TIMOLOL 0.5% OPHTHALMIC SOL 5 ML BOTTLE OU SCH ×2 (10:07→17:05)
[2020-09-23] MEDS: BENZOCAINE 20 % GEL TUBE MM PRN (10:54)
[2020-09-23] MEDS: ALBUTEROL SO4 HFA INHALER IH PRN ×3 (10:55→21:26)
[2020-09-23] MEDS: FLUTICASONE PROP 0.05% 16 GM NASAL SPRAY NS SCH ×2 (13:26→22:06)
[2020-09-23] MEDS: MELATONIN 5 MG TABLETS PO SCH (21:26)
[2020-09-23] MEDS: DOCUSATE SODIUM 100 MG CAPSULE (FP) PO SCH (21:27)
[2020-09-23] MEDS: traZODone HCL 100 MG TABLET (FP) PO SCH (21:27)
[2020-09-23] MEDS: THIAMINE HCL 100 MG TABLET (FP) PO SCH (21:27)
[2020-09-23] MEDS: LATANOPROST 0.005% OPHTH SOLN 2.5ML BOTTLE OU SCH (22:05)
[2020-09-24] MEDS: MAG HYDROX/AL HYDROX/SIMETH 30 ML UNIT-DOSE CUP PO PRN (02:43)
[2020-09-24] MEDS: GABAPENTIN 300 MG CAPSULE PO SCH ×3 (06:29→21:49)
[2020-09-24] MEDS: METHOCARBAMOL 500 MG TABLET PO PRN ×2 (06:30→21:49)
[2020-09-24] MEDS: ACETAMINOPHEN 325 MG TABLET (FP) PO PRN ×2 (06:30→21:54)
[2020-09-24] MEDS: PRENATAL VITAMINS W/ FOLIC ACID TABLET (FP) PO SCH (10:10)
[2020-09-24] MEDS: FLUTICASONE PROP 0.05% 16 GM NASAL SPRAY NS SCH ×2 (10:10→21:50)
[2020-09-24] MEDS: TAMSULOSIN HCL 0.4 MG CAP PO SCH (10:10)
[2020-09-24] MEDS: COLLOIDAL OATMEAL 1 BAR EACH TP SCH (10:10)
[2020-09-24] MEDS: BACITRACIN 0.9 GM PACKET TP SCH (10:11)
[2020-09-24] MEDS: FAMOTIDINE 20 MG TABLET PO SCH ×2 (10:11→21:50)
[2020-09-24] MEDS: NICOTINE 7 MG/24 HOURS TOPICAL PATCH TD SCH (10:11)
[2020-09-24] MEDS: TIMOLOL 0.5% OPHTHALMIC SOL 5 ML BOTTLE OU SCH ×2 (10:12→18:15)
[2020-09-24] MEDS: THIAMINE HCL 100 MG TABLET (FP) PO SCH (21:49)
[2020-09-24] MEDS: DOCUSATE SODIUM 100 MG CAPSULE (FP) PO SCH (21:49)
[2020-09-24] MEDS: traZODone HCL 100 MG TABLET (FP) PO SCH (21:49)
[2020-09-24] MEDS: MELATONIN 5 MG TABLETS PO SCH (21:50)
[2020-09-24] MEDS: LATANOPROST 0.005% OPHTH SOLN 2.5ML BOTTLE OU SCH (21:51)
[2020-09-24] MEDS: BENZOCAINE 20 % GEL TUBE MM PRN (21:51)
[2020-09-24] MEDS: ALBUTEROL SO4 HFA INHALER IH PRN (21:52)
[2020-09-25] MEDS: METHOCARBAMOL 500 MG TABLET PO PRN ×2 (06:39→21:27)
[2020-09-25] MEDS: ACETAMINOPHEN 325 MG TABLET (FP) PO PRN ×2 (06:39→21:28)
[2020-09-25] MEDS: GABAPENTIN 300 MG CAPSULE PO SCH ×3 (06:39→21:27)
[2020-09-25] MEDS: TAMSULOSIN HCL 0.4 MG CAP PO SCH (10:46)
[2020-09-25] MEDS: PRENATAL VITAMINS W/ FOLIC ACID TABLET (FP) PO SCH (10:46)
[2020-09-25] MEDS: NICOTINE 7 MG/24 HOURS TOPICAL PATCH TD SCH (10:47)
[2020-09-25] MEDS: FLUTICASONE PROP 0.05% 16 GM NASAL SPRAY NS SCH ×2 (10:48→21:28)
[2020-09-25] MEDS: COLLOIDAL OATMEAL 1 BAR EACH TP SCH (10:48)
[2020-09-25] MEDS: BENZOCAINE 20 % GEL TUBE MM PRN (10:48)
[2020-09-25] MEDS: FAMOTIDINE 20 MG TABLET PO SCH ×2 (10:49→21:28)
[2020-09-25] MEDS: BACITRACIN 0.9 GM PACKET TP SCH (10:49)
[2020-09-25] MEDS: TIMOLOL 0.5% OPHTHALMIC SOL 5 ML BOTTLE OU SCH ×2 (10:49→17:06)
[2020-09-25] MEDS: ALBUTEROL SO4 HFA INHALER IH PRN (10:51)
[2020-09-25] MEDS: guaiFENesin 200 MG/10 ML 10 ML UNIT-DOSE CUPS PO PRN (10:52)
[2020-09-25] MEDS: MENTHOL/PHENOL 1 EACH UD MM PRN (10:53)
[2020-09-25] MEDS: MELATONIN 5 MG TABLETS PO SCH (21:27)
[2020-09-25] MEDS: traZODone HCL 100 MG TABLET (FP) PO SCH (21:27)
[2020-09-25] MEDS: THIAMINE HCL 100 MG TABLET (FP) PO SCH (21:27)
[2020-09-25] MEDS: DOCUSATE SODIUM 100 MG CAPSULE (FP) PO SCH (21:27)
[2020-09-25] MEDS: LATANOPROST 0.005% OPHTH SOLN 2.5ML BOTTLE OU SCH (21:28)
[2020-09-26] MEDS: GABAPENTIN 300 MG CAPSULE PO SCH ×3 (07:13→21:55)
[2020-09-26] MEDS: ACETAMINOPHEN 325 MG TABLET (FP) PO PRN (07:44)
[2020-09-26] MEDS: MAG HYDROX/AL HYDROX/SIMETH 30 ML UNIT-DOSE CUP PO PRN (08:32)
[2020-09-26] MEDS: PRENATAL VITAMINS W/ FOLIC ACID TABLET (FP) PO SCH (10:21)
[2020-09-26] MEDS: FLUTICASONE PROP 0.05% 16 GM NASAL SPRAY NS SCH ×2 (10:22→21:57)
[2020-09-26] MEDS: TAMSULOSIN HCL 0.4 MG CAP PO SCH (10:22)
[2020-09-26] MEDS: BACITRACIN 0.9 GM PACKET TP SCH (10:22)
[2020-09-26] MEDS: COLLOIDAL OATMEAL 1 BAR EACH TP SCH (10:23)
[2020-09-26] MEDS: FAMOTIDINE 20 MG TABLET PO SCH ×2 (10:23→21:57)
[2020-09-26] MEDS: NICOTINE 7 MG/24 HOURS TOPICAL PATCH TD SCH (10:23)
[2020-09-26] MEDS: TIMOLOL 0.5% OPHTHALMIC SOL 5 ML BOTTLE OU SCH ×2 (10:24→17:01)
[2020-09-26] MEDS: METHOCARBAMOL 500 MG TABLET PO PRN ×2 (10:25→21:55)
[2020-09-26] MEDS: DOCUSATE SODIUM 100 MG CAPSULE (FP) PO SCH (21:54)
[2020-09-26] MEDS: THIAMINE HCL 100 MG TABLET (FP) PO SCH (21:54)
[2020-09-26] MEDS: traZODone HCL 100 MG TABLET (FP) PO SCH (21:55)
[2020-09-26] MEDS: MELATONIN 5 MG TABLETS PO SCH (21:55)
[2020-09-26] MEDS: LATANOPROST 0.005% OPHTH SOLN 2.5ML BOTTLE OU SCH (21:56)
[2020-09-27] MEDS: GABAPENTIN 300 MG CAPSULE PO SCH ×3 (07:22→21:38)
[2020-09-27] MEDS: FLUTICASONE PROP 0.05% 16 GM NASAL SPRAY NS SCH ×2 (10:04→21:39)
[2020-09-27] MEDS: COLLOIDAL OATMEAL 1 BAR EACH TP SCH (10:04)
[2020-09-27] MEDS: TAMSULOSIN HCL 0.4 MG CAP PO SCH (10:04)
[2020-09-27] MEDS: BACITRACIN 0.9 GM PACKET TP SCH (10:04)
[2020-09-27] MEDS: TIMOLOL 0.5% OPHTHALMIC SOL 5 ML BOTTLE OU SCH ×2 (10:05→17:31)
[2020-09-27] MEDS: NICOTINE 7 MG/24 HOURS TOPICAL PATCH TD SCH (10:05)
[2020-09-27] MEDS: FAMOTIDINE 20 MG TABLET PO SCH ×2 (10:05→21:39)
[2020-09-27] MEDS: PRENATAL VITAMINS W/ FOLIC ACID TABLET (FP) PO SCH (10:05)
[2020-09-27] MEDS: ACETAMINOPHEN 325 MG TABLET (FP) PO PRN ×2 (10:06→21:39)
[2020-09-27] MEDS: METHOCARBAMOL 500 MG TABLET PO PRN ×2 (10:08→21:38)
[2020-09-27] MEDS: MELATONIN 5 MG TABLETS PO SCH (21:38)
[2020-09-27] MEDS: traZODone HCL 100 MG TABLET (FP) PO SCH (21:38)
[2020-09-27] MEDS: THIAMINE HCL 100 MG TABLET (FP) PO SCH (21:38)
[2020-09-27] MEDS: LATANOPROST 0.005% OPHTH SOLN 2.5ML BOTTLE OU SCH (21:39)
[2020-09-27] MEDS: DOCUSATE SODIUM 100 MG CAPSULE (FP) PO SCH (21:39)
[2020-09-27] MEDS: MAG HYDROX/AL HYDROX/SIMETH 30 ML UNIT-DOSE CUP PO PRN (22:00)
[2020-09-28] MEDS: GABAPENTIN 300 MG CAPSULE PO SCH ×3 (06:46→22:02)
[2020-09-28] MEDS: METHOCARBAMOL 500 MG TABLET PO PRN ×2 (06:46→22:02)
[2020-09-28] MEDS: ACETAMINOPHEN 325 MG TABLET (FP) PO PRN (06:46)
[2020-09-28] MEDS: TAMSULOSIN HCL 0.4 MG CAP PO SCH (10:07)
[2020-09-28] MEDS: BACITRACIN 0.9 GM PACKET TP SCH (10:07)
[2020-09-28] MEDS: PRENATAL VITAMINS W/ FOLIC ACID TABLET (FP) PO SCH (10:07)
[2020-09-28] MEDS: FLUTICASONE PROP 0.05% 16 GM NASAL SPRAY NS SCH ×2 (10:08→22:03)
[2020-09-28] MEDS: NICOTINE 7 MG/24 HOURS TOPICAL PATCH TD SCH (10:08)
[2020-09-28] MEDS: FAMOTIDINE 20 MG TABLET PO SCH ×2 (10:08→22:04)
[2020-09-28] MEDS: COLLOIDAL OATMEAL 1 BAR EACH TP SCH (10:08)
[2020-09-28] MEDS: TIMOLOL 0.5% OPHTHALMIC SOL 5 ML BOTTLE OU SCH ×2 (10:09→17:56)
[2020-09-28] MEDS: hydrOXYzine PAMOATE 50 MG CAPSULE (FP) PO PRN ×2 (10:48→22:02)
[2020-09-28] MEDS: CLINDAMYCIN HCL 150 MG CAPSULE (FP) PO SCH ×2 (14:30→22:02)
[2020-09-28] MEDS: traZODone HCL 100 MG TABLET (FP) PO SCH (22:02)
[2020-09-28] MEDS: THIAMINE HCL 100 MG TABLET (FP) PO SCH (22:02)
[2020-09-28] MEDS: DOCUSATE SODIUM 100 MG CAPSULE (FP) PO SCH (22:02)
[2020-09-28] MEDS: MELATONIN 5 MG TABLETS PO SCH (22:02)
[2020-09-28] MEDS: LATANOPROST 0.005% OPHTH SOLN 2.5ML BOTTLE OU SCH (22:05)
[2020-09-29] MEDS: GABAPENTIN 300 MG CAPSULE PO SCH ×3 (06:47→21:27)
[2020-09-29] MEDS: CLINDAMYCIN HCL 150 MG CAPSULE (FP) PO SCH ×3 (06:47→21:27)
[2020-09-29] MEDS: METHOCARBAMOL 500 MG TABLET PO PRN (06:47)
[2020-09-29] MEDS: ACETAMINOPHEN 325 MG TABLET (FP) PO PRN (06:49)
[2020-09-29] MEDS: hydrOXYzine PAMOATE 50 MG CAPSULE (FP) PO PRN ×3 (06:49→21:29)
[2020-09-29] MEDS: TAMSULOSIN HCL 0.4 MG CAP PO SCH (10:23)
[2020-09-29] MEDS: FAMOTIDINE 20 MG TABLET PO SCH ×2 (10:24→21:28)
[2020-09-29] MEDS: FLUTICASONE PROP 0.05% 16 GM NASAL SPRAY NS SCH ×2 (10:24→21:29)
[2020-09-29] MEDS: BACITRACIN 0.9 GM PACKET TP SCH (10:24)
[2020-09-29] MEDS: PRENATAL VITAMINS W/ FOLIC ACID TABLET (FP) PO SCH (10:24)
[2020-09-29] MEDS: NICOTINE 7 MG/24 HOURS TOPICAL PATCH TD SCH (10:24)
[2020-09-29] MEDS: TIMOLOL 0.5% OPHTHALMIC SOL 5 ML BOTTLE OU SCH ×2 (10:25→17:41)
[2020-09-29] MEDS: ARTIFICIAL TEARS (POLYVINYL ALCOHOL) OPTH DROPS OU PRN (10:25)
[2020-09-29] MEDS: ALBUTEROL SO4 HFA INHALER IH PRN ×2 (10:28→21:31)
[2020-09-29] MEDS: COLLOIDAL OATMEAL 1 BAR EACH TP SCH (11:45)
[2020-09-29] MEDS: THIAMINE HCL 100 MG TABLET (FP) PO SCH (21:26)
[2020-09-29] MEDS: DOCUSATE SODIUM 100 MG CAPSULE (FP) PO SCH (21:27)
[2020-09-29] MEDS: MELATONIN 5 MG TABLETS PO SCH (21:28)
[2020-09-29] MEDS: traZODone HCL 100 MG TABLET (FP) PO SCH (21:28)
[2020-09-29] MEDS: LATANOPROST 0.005% OPHTH SOLN 2.5ML BOTTLE OU SCH (21:32)
[2020-09-30] MEDS: CLINDAMYCIN HCL 150 MG CAPSULE (FP) PO SCH ×3 (07:39→22:03)
[2020-09-30] MEDS: ACETAMINOPHEN 325 MG TABLET (FP) PO PRN ×2 (07:39→22:04)
[2020-09-30] MEDS: hydrOXYzine PAMOATE 50 MG CAPSULE (FP) PO PRN ×2 (07:40→22:03)
[2020-09-30] MEDS: METHOCARBAMOL 500 MG TABLET PO PRN ×2 (07:40→22:03)
[2020-09-30] MEDS: GABAPENTIN 300 MG CAPSULE PO SCH ×3 (07:40→22:03)
[2020-09-30] MEDS: FAMOTIDINE 20 MG TABLET PO SCH ×2 (10:38→22:04)
[2020-09-30] MEDS: BACITRACIN 0.9 GM PACKET TP SCH (10:38)
[2020-09-30] MEDS: TAMSULOSIN HCL 0.4 MG CAP PO SCH (10:38)
[2020-09-30] MEDS: PRENATAL VITAMINS W/ FOLIC ACID TABLET (FP) PO SCH (10:38)
[2020-09-30] MEDS: FLUTICASONE PROP 0.05% 16 GM NASAL SPRAY NS SCH ×2 (10:39→22:04)
[2020-09-30] MEDS: ALBUTEROL SO4 HFA INHALER IH PRN ×2 (10:39→22:03)
[2020-09-30] MEDS: TIMOLOL 0.5% OPHTHALMIC SOL 5 ML BOTTLE OU SCH ×2 (10:40→18:01)
[2020-09-30] MEDS: NICOTINE 7 MG/24 HOURS TOPICAL PATCH TD SCH (10:40)
[2020-09-30] MEDS: ARTIFICIAL TEARS (POLYVINYL ALCOHOL) OPTH DROPS OU PRN (18:07)
[2020-09-30] MEDS: MELATONIN 5 MG TABLETS PO SCH (22:02)
[2020-09-30] MEDS: traZODone HCL 100 MG TABLET (FP) PO SCH (22:03)
[2020-09-30] MEDS: THIAMINE HCL 100 MG TABLET (FP) PO SCH (22:03)
[2020-09-30] MEDS: DOCUSATE SODIUM 100 MG CAPSULE (FP) PO SCH (22:03)
[2020-09-30] MEDS: LATANOPROST 0.005% OPHTH SOLN 2.5ML BOTTLE OU SCH (22:04)
[2020-10-01] MEDS: GABAPENTIN 300 MG CAPSULE PO SCH ×3 (07:47→21:50)
[2020-10-01] MEDS: CLINDAMYCIN HCL 150 MG CAPSULE (FP) PO SCH ×3 (07:47→21:50)
[2020-10-01] MEDS: PRENATAL VITAMINS W/ FOLIC ACID TABLET (FP) PO SCH (10:14)
[2020-10-01] MEDS: FLUTICASONE PROP 0.05% 16 GM NASAL SPRAY NS SCH ×2 (10:15→21:50)
[2020-10-01] MEDS: BACITRACIN 0.9 GM PACKET TP SCH (10:15)
[2020-10-01] MEDS: FAMOTIDINE 20 MG TABLET PO SCH ×2 (10:15→21:51)
[2020-10-01] MEDS: TAMSULOSIN HCL 0.4 MG CAP PO SCH (10:15)
[2020-10-01] MEDS: NICOTINE 7 MG/24 HOURS TOPICAL PATCH TD SCH (10:15)
[2020-10-01] MEDS: TIMOLOL 0.5% OPHTHALMIC SOL 5 ML BOTTLE OU SCH ×2 (10:16→17:34)
[2020-10-01] MEDS: hydrOXYzine PAMOATE 50 MG CAPSULE (FP) PO PRN ×2 (10:17→21:50)
[2020-10-01] MEDS: ARTIFICIAL TEARS (POLYVINYL ALCOHOL) OPTH DROPS OU PRN (17:36)
[2020-10-01] MEDS: DOCUSATE SODIUM 100 MG CAPSULE (FP) PO SCH (21:49)
[2020-10-01] MEDS: ACETAMINOPHEN 325 MG TABLET (FP) PO PRN (21:49)
[2020-10-01] MEDS: MELATONIN 5 MG TABLETS PO SCH (21:50)
[2020-10-01] MEDS: traZODone HCL 100 MG TABLET (FP) PO SCH (21:50)
[2020-10-01] MEDS: THIAMINE HCL 100 MG TABLET (FP) PO SCH (21:50)
[2020-10-01] MEDS: METHOCARBAMOL 500 MG TABLET PO PRN (21:50)
[2020-10-01] MEDS: LATANOPROST 0.005% OPHTH SOLN 2.5ML BOTTLE OU SCH (21:51)
[2020-10-02] MEDS: CLINDAMYCIN HCL 150 MG CAPSULE (FP) PO SCH ×3 (07:26→21:58)
[2020-10-02] MEDS: GABAPENTIN 300 MG CAPSULE PO SCH ×3 (07:26→21:57)
[2020-10-02] MEDS: FLUTICASONE PROP 0.05% 16 GM NASAL SPRAY NS SCH ×2 (10:02→21:58)
[2020-10-02] MEDS: BACITRACIN 0.9 GM PACKET TP SCH (10:02)
[2020-10-02] MEDS: TAMSULOSIN HCL 0.4 MG CAP PO SCH (10:02)
[2020-10-02] MEDS: NICOTINE 7 MG/24 HOURS TOPICAL PATCH TD SCH (10:03)
[2020-10-02] MEDS: FAMOTIDINE 20 MG TABLET PO SCH ×2 (10:03→21:59)
[2020-10-02] MEDS: PRENATAL VITAMINS W/ FOLIC ACID TABLET (FP) PO SCH (10:03)
[2020-10-02] MEDS: TIMOLOL 0.5% OPHTHALMIC SOL 5 ML BOTTLE OU SCH ×2 (10:04→17:28)
[2020-10-02] MEDS: ACETAMINOPHEN 325 MG TABLET (FP) PO PRN ×2 (10:06→21:58)
[2020-10-02] MEDS: METHOCARBAMOL 500 MG TABLET PO PRN ×2 (10:06→21:58)
[2020-10-02] MEDS: ARTIFICIAL TEARS (POLYVINYL ALCOHOL) OPTH DROPS OU PRN ×2 (10:07→17:29)
[2020-10-02] MEDS: THIAMINE HCL 100 MG TABLET (FP) PO SCH (21:58)
[2020-10-02] MEDS: DOCUSATE SODIUM 100 MG CAPSULE (FP) PO SCH (21:58)
[2020-10-02] MEDS: traZODone HCL 100 MG TABLET (FP) PO SCH (21:58)
[2020-10-02] MEDS: hydrOXYzine PAMOATE 50 MG CAPSULE (FP) PO PRN (21:58)
[2020-10-02] MEDS: MELATONIN 5 MG TABLETS PO SCH (21:58)
[2020-10-02] MEDS: LATANOPROST 0.005% OPHTH SOLN 2.5ML BOTTLE OU SCH (21:59)
[2020-10-03] MEDS: CLINDAMYCIN HCL 150 MG CAPSULE (FP) PO SCH ×3 (07:45→22:25)
[2020-10-03] MEDS: GABAPENTIN 300 MG CAPSULE PO SCH ×3 (07:45→22:25)
[2020-10-03] MEDS: PRENATAL VITAMINS W/ FOLIC ACID TABLET (FP) PO SCH (10:00)
[2020-10-03] MEDS: FLUTICASONE PROP 0.05% 16 GM NASAL SPRAY NS SCH ×2 (10:00→22:26)
[2020-10-03] MEDS: BACITRACIN 0.9 GM PACKET TP SCH (10:01)
[2020-10-03] MEDS: TAMSULOSIN HCL 0.4 MG CAP PO SCH (10:01)
[2020-10-03] MEDS: NICOTINE 7 MG/24 HOURS TOPICAL PATCH TD SCH (10:01)
[2020-10-03] MEDS: TIMOLOL 0.5% OPHTHALMIC SOL 5 ML BOTTLE OU SCH ×2 (10:02→18:00)
[2020-10-03] MEDS: FAMOTIDINE 20 MG TABLET PO SCH ×2 (10:02→22:27)
[2020-10-03] MEDS: hydrOXYzine PAMOATE 50 MG CAPSULE (FP) PO PRN ×2 (10:04→22:31)
[2020-10-03] MEDS: DOCUSATE SODIUM 100 MG CAPSULE (FP) PO SCH (22:25)
[2020-10-03] MEDS: MELATONIN 5 MG TABLETS PO SCH (22:26)
[2020-10-03] MEDS: THIAMINE HCL 100 MG TABLET (FP) PO SCH (22:27)
[2020-10-03] MEDS: traZODone HCL 100 MG TABLET (FP) PO SCH (22:27)
[2020-10-03] MEDS: LATANOPROST 0.005% OPHTH SOLN 2.5ML BOTTLE OU SCH (22:28)
[2020-10-03] MEDS: ALBUTEROL SO4 HFA INHALER IH PRN (22:32)
[2020-10-04] MEDS: GABAPENTIN 300 MG CAPSULE PO SCH ×3 (07:39→21:59)
[2020-10-04] MEDS: CLINDAMYCIN HCL 150 MG CAPSULE (FP) PO SCH ×3 (07:39→21:59)
[2020-10-04] MEDS: BACITRACIN 0.9 GM PACKET TP SCH (10:10)
[2020-10-04] MEDS: FLUTICASONE PROP 0.05% 16 GM NASAL SPRAY NS SCH ×2 (10:10→22:01)
[2020-10-04] MEDS: TAMSULOSIN HCL 0.4 MG CAP PO SCH (10:10)
[2020-10-04] MEDS: FAMOTIDINE 20 MG TABLET PO SCH ×2 (10:11→22:02)
[2020-10-04] MEDS: ACETAMINOPHEN 325 MG TABLET (FP) PO PRN (10:11)
[2020-10-04] MEDS: NICOTINE 7 MG/24 HOURS TOPICAL PATCH TD SCH (10:11)
[2020-10-04] MEDS: PRENATAL VITAMINS W/ FOLIC ACID TABLET (FP) PO SCH (10:11)
[2020-10-04] MEDS: TIMOLOL 0.5% OPHTHALMIC SOL 5 ML BOTTLE OU SCH ×2 (10:11→17:21)
[2020-10-04] MEDS: THIAMINE HCL 100 MG TABLET (FP) PO SCH (21:58)
[2020-10-04] MEDS: DOCUSATE SODIUM 100 MG CAPSULE (FP) PO SCH (21:59)
[2020-10-04] MEDS: MELATONIN 5 MG TABLETS PO SCH (22:01)
[2020-10-04] MEDS: traZODone HCL 100 MG TABLET (FP) PO SCH (22:01)
[2020-10-04] MEDS: LATANOPROST 0.005% OPHTH SOLN 2.5ML BOTTLE OU SCH (22:02)
[2020-10-04] MEDS: MAGNESIUM HYDROX 2400MG/30ML ORAL SUSPENSION 30 ML CUP PO PRN (22:09)
[2020-10-05] MEDS: CLINDAMYCIN HCL 150 MG CAPSULE (FP) PO SCH ×3 (07:20→21:58)
[2020-10-05] MEDS: GABAPENTIN 300 MG CAPSULE PO SCH ×3 (07:20→21:58)
[2020-10-05] MEDS: PRENATAL VITAMINS W/ FOLIC ACID TABLET (FP) PO SCH (10:09)
[2020-10-05] MEDS: FLUTICASONE PROP 0.05% 16 GM NASAL SPRAY NS SCH ×2 (10:10→22:04)
[2020-10-05] MEDS: BACITRACIN 0.9 GM PACKET TP SCH (10:10)
[2020-10-05] MEDS: NICOTINE 7 MG/24 HOURS TOPICAL PATCH TD SCH (10:10)
[2020-10-05] MEDS: TAMSULOSIN HCL 0.4 MG CAP PO SCH (10:10)
[2020-10-05] MEDS: FAMOTIDINE 20 MG TABLET PO SCH ×2 (10:11→22:04)
[2020-10-05] MEDS: TIMOLOL 0.5% OPHTHALMIC SOL 5 ML BOTTLE OU SCH ×2 (10:11→16:55)
[2020-10-05] MEDS: hydrOXYzine PAMOATE 50 MG CAPSULE (FP) PO PRN ×2 (10:12→21:58)
[2020-10-05] MEDS: METHOCARBAMOL 500 MG TABLET PO PRN ×2 (10:12→21:58)
[2020-10-05] MEDS: ACETAMINOPHEN 325 MG TABLET (FP) PO PRN (21:58)
[2020-10-05] MEDS: DOCUSATE SODIUM 100 MG CAPSULE (FP) PO SCH (21:58)
[2020-10-05] MEDS: THIAMINE HCL 100 MG TABLET (FP) PO SCH (21:58)
[2020-10-05] MEDS: traZODone HCL 100 MG TABLET (FP) PO SCH (21:58)
[2020-10-05] MEDS: LATANOPROST 0.005% OPHTH SOLN 2.5ML BOTTLE OU SCH (22:04)
[2020-10-05] MEDS: MELATONIN 5 MG TABLETS PO SCH (22:04)
[2020-10-05] MEDS: MAGNESIUM HYDROX 2400MG/30ML ORAL SUSPENSION 30 ML CUP PO PRN (22:04)
[2020-10-06] MEDS: ACETAMINOPHEN 325 MG TABLET (FP) PO PRN ×2 (06:49→10:52)
[2020-10-06] MEDS: GABAPENTIN 300 MG CAPSULE PO SCH ×3 (06:49→22:00)
[2020-10-06] MEDS: CLINDAMYCIN HCL 150 MG CAPSULE (FP) PO SCH ×3 (06:49→22:00)
[2020-10-06] MEDS: hydrOXYzine PAMOATE 50 MG CAPSULE (FP) PO PRN ×2 (06:50→22:03)
[2020-10-06] MEDS: METHOCARBAMOL 500 MG TABLET PO PRN (06:50)
[2020-10-06] MEDS: FLUTICASONE PROP 0.05% 16 GM NASAL SPRAY NS SCH ×2 (10:50→23:01)
[2020-10-06] MEDS: TAMSULOSIN HCL 0.4 MG CAP PO SCH (10:50)
[2020-10-06] MEDS: TIMOLOL 0.5% OPHTHALMIC SOL 5 ML BOTTLE OU SCH ×2 (10:51→18:10)
[2020-10-06] MEDS: BACITRACIN 0.9 GM PACKET TP SCH (10:51)
[2020-10-06] MEDS: FAMOTIDINE 20 MG TABLET PO SCH ×2 (10:51→22:06)
[2020-10-06] MEDS: ALBUTEROL SO4 HFA INHALER IH PRN (10:53)
[2020-10-06] MEDS: MAGNESIUM CITRATE 300 ML BOTTLE PO PRN (10:55)
[2020-10-06] MEDS: PRENATAL VITAMINS W/ FOLIC ACID TABLET (FP) PO SCH (10:55)
[2020-10-06] MEDS: NICOTINE 7 MG/24 HOURS TOPICAL PATCH TD SCH (10:57)
[2020-10-06] MEDS: THIAMINE HCL 100 MG TABLET (FP) PO SCH (22:01)
[2020-10-06] MEDS: DOCUSATE SODIUM 100 MG CAPSULE (FP) PO SCH (22:01)
[2020-10-06] MEDS: traZODone HCL 100 MG TABLET (FP) PO SCH (22:01)
[2020-10-06] MEDS: MELATONIN 5 MG TABLETS PO SCH (22:02)
[2020-10-06] MEDS: LATANOPROST 0.005% OPHTH SOLN 2.5ML BOTTLE OU SCH (22:05)
[2020-10-07] MEDS: GABAPENTIN 300 MG CAPSULE PO SCH ×3 (07:14→21:54)
[2020-10-07] MEDS: CLINDAMYCIN HCL 150 MG CAPSULE (FP) PO SCH ×3 (07:14→21:53)
[2020-10-07] MEDS: FLUTICASONE PROP 0.05% 16 GM NASAL SPRAY NS SCH ×2 (10:23→21:55)
[2020-10-07] MEDS: BACITRACIN 0.9 GM PACKET TP SCH (10:24)
[2020-10-07] MEDS: TAMSULOSIN HCL 0.4 MG CAP PO SCH (10:24)
[2020-10-07] MEDS: PRENATAL VITAMINS W/ FOLIC ACID TABLET (FP) PO SCH (10:24)
[2020-10-07] MEDS: NICOTINE 7 MG/24 HOURS TOPICAL PATCH TD SCH (10:24)
[2020-10-07] MEDS: FAMOTIDINE 20 MG TABLET PO SCH ×2 (10:24→21:55)
[2020-10-07] MEDS: TIMOLOL 0.5% OPHTHALMIC SOL 5 ML BOTTLE OU SCH ×2 (10:25→17:10)
[2020-10-07] MEDS: traZODone HCL 100 MG TABLET (FP) PO SCH (21:53)
[2020-10-07] MEDS: hydrOXYzine PAMOATE 50 MG CAPSULE (FP) PO PRN (21:53)
[2020-10-07] MEDS: THIAMINE HCL 100 MG TABLET (FP) PO SCH (21:53)
[2020-10-07] MEDS: DOCUSATE SODIUM 100 MG CAPSULE (FP) PO SCH (21:53)
[2020-10-07] MEDS: ACETAMINOPHEN 325 MG TABLET (FP) PO PRN (21:54)
[2020-10-07] MEDS: METHOCARBAMOL 500 MG TABLET PO PRN (21:54)
[2020-10-07] MEDS: ALBUTEROL SO4 HFA INHALER IH PRN (21:54)
[2020-10-07] MEDS: MELATONIN 5 MG TABLETS PO SCH (21:55)
[2020-10-07] MEDS: LATANOPROST 0.005% OPHTH SOLN 2.5ML BOTTLE OU SCH (21:55)
[2020-10-08] MEDS: GABAPENTIN 300 MG CAPSULE PO SCH ×3 (06:57→22:04)
[2020-10-08] MEDS: CLINDAMYCIN HCL 150 MG CAPSULE (FP) PO SCH (06:57)
[2020-10-08] MEDS: PRENATAL VITAMINS W/ FOLIC ACID TABLET (FP) PO SCH (10:21)
[2020-10-08] MEDS: TAMSULOSIN HCL 0.4 MG CAP PO SCH (10:22)
[2020-10-08] MEDS: BACITRACIN 0.9 GM PACKET TP SCH (10:22)
[2020-10-08] MEDS: FLUTICASONE PROP 0.05% 16 GM NASAL SPRAY NS SCH ×2 (10:22→22:04)
[2020-10-08] MEDS: TIMOLOL 0.5% OPHTHALMIC SOL 5 ML BOTTLE OU SCH ×2 (10:23→17:56)
[2020-10-08] MEDS: NICOTINE 7 MG/24 HOURS TOPICAL PATCH TD SCH (10:23)
[2020-10-08] MEDS: FAMOTIDINE 20 MG TABLET PO SCH ×2 (10:23→22:05)
[2020-10-08] MEDS: hydrOXYzine PAMOATE 50 MG CAPSULE (FP) PO PRN ×2 (10:28→22:04)
[2020-10-08] MEDS ORDERED: SODIUM PHOSPHATE/NA BIPHOS 133 ML ENEMA RC ONE (11:29)
[2020-10-08] MEDS: THIAMINE HCL 100 MG TABLET (FP) PO SCH (22:04)
[2020-10-08] MEDS: DOCUSATE SODIUM 100 MG CAPSULE (FP) PO SCH (22:04)
[2020-10-08] MEDS: traZODone HCL 100 MG TABLET (FP) PO SCH (22:04)
[2020-10-08] MEDS: METHOCARBAMOL 500 MG TABLET PO PRN (22:04)
[2020-10-08] MEDS: ACETAMINOPHEN 325 MG TABLET (FP) PO PRN (22:05)
[2020-10-08] MEDS: MELATONIN 5 MG TABLETS PO SCH (22:05)
[2020-10-08] MEDS: LATANOPROST 0.005% OPHTH SOLN 2.5ML BOTTLE OU SCH (22:05)
[2020-10-08] MEDS ORDERED: CLINDAMYCIN HCL 150 MG CAPSULE (FP) PO ONE (22:08)
[2020-10-09] MEDS: GABAPENTIN 300 MG CAPSULE PO SCH ×3 (07:11→21:43)
[2020-10-09] MEDS: PRENATAL VITAMINS W/ FOLIC ACID TABLET (FP) PO SCH (09:55)
[2020-10-09] MEDS: FLUTICASONE PROP 0.05% 16 GM NASAL SPRAY NS SCH ×2 (09:55→21:45)
[2020-10-09] MEDS: NICOTINE 7 MG/24 HOURS TOPICAL PATCH TD SCH (09:55)
[2020-10-09] MEDS: TAMSULOSIN HCL 0.4 MG CAP PO SCH (09:55)
[2020-10-09] MEDS: BACITRACIN 0.9 GM PACKET TP SCH (09:55)
[2020-10-09] MEDS: FAMOTIDINE 20 MG TABLET PO SCH ×2 (09:57→21:45)
[2020-10-09] MEDS: TIMOLOL 0.5% OPHTHALMIC SOL 5 ML BOTTLE OU SCH ×2 (09:57→17:34)
[2020-10-09] MEDS: hydrOXYzine PAMOATE 50 MG CAPSULE (FP) PO PRN ×2 (09:58→21:46)
[2020-10-09] MEDS: traZODone HCL 100 MG TABLET (FP) PO SCH (21:43)
[2020-10-09] MEDS: DOCUSATE SODIUM 100 MG CAPSULE (FP) PO SCH (21:44)
[2020-10-09] MEDS: THIAMINE HCL 100 MG TABLET (FP) PO SCH (21:44)
[2020-10-09] MEDS: MELATONIN 5 MG TABLETS PO SCH (21:45)
[2020-10-09] MEDS: LATANOPROST 0.005% OPHTH SOLN 2.5ML BOTTLE OU SCH (21:46)
[2020-10-09] MEDS: ALBUTEROL SO4 HFA INHALER IH PRN (21:47)
[2020-10-10] MEDS: GABAPENTIN 300 MG CAPSULE PO SCH ×3 (07:22→21:17)
[2020-10-10] MEDS: FAMOTIDINE 20 MG TABLET PO SCH ×2 (10:04→21:18)
[2020-10-10] MEDS: PRENATAL VITAMINS W/ FOLIC ACID TABLET (FP) PO SCH (10:04)
[2020-10-10] MEDS: BACITRACIN 0.9 GM PACKET TP SCH (10:04)
[2020-10-10] MEDS: TAMSULOSIN HCL 0.4 MG CAP PO SCH (10:04)
[2020-10-10] MEDS: NICOTINE 7 MG/24 HOURS TOPICAL PATCH TD SCH (10:05)
[2020-10-10] MEDS: FLUTICASONE PROP 0.05% 16 GM NASAL SPRAY NS SCH ×2 (10:05→21:18)
[2020-10-10] MEDS: TIMOLOL 0.5% OPHTHALMIC SOL 5 ML BOTTLE OU SCH ×2 (10:07→16:59)
[2020-10-10] MEDS: hydrOXYzine PAMOATE 50 MG CAPSULE (FP) PO PRN ×2 (10:09→21:17)
[2020-10-10] MEDS: ACETAMINOPHEN 325 MG TABLET (FP) PO PRN ×2 (10:10→21:19)
[2020-10-10] MEDS: MAGNESIUM HYDROX 2400MG/30ML ORAL SUSPENSION 30 ML CUP PO PRN (13:41)
[2020-10-10] MEDS: COLLOIDAL OATMEAL 1 BAR EACH TP PRN (13:52)
[2020-10-10] MEDS: traZODone HCL 100 MG TABLET (FP) PO SCH (21:17)
[2020-10-10] MEDS: METHOCARBAMOL 500 MG TABLET PO PRN (21:17)
[2020-10-10] MEDS: THIAMINE HCL 100 MG TABLET (FP) PO SCH (21:17)
[2020-10-10] MEDS: MELATONIN 5 MG TABLETS PO SCH (21:18)
[2020-10-10] MEDS: DOCUSATE SODIUM 100 MG CAPSULE (FP) PO SCH (21:18)
[2020-10-10] MEDS: LATANOPROST 0.005% OPHTH SOLN 2.5ML BOTTLE OU SCH (21:18)
[2020-10-11] MEDS: GABAPENTIN 300 MG CAPSULE PO SCH ×4 (07:20→21:44)
[2020-10-11] MEDS: FLUTICASONE PROP 0.05% 16 GM NASAL SPRAY NS SCH ×2 (09:51→21:46)
[2020-10-11] MEDS: FAMOTIDINE 20 MG TABLET PO SCH ×2 (09:52→21:45)
[2020-10-11] MEDS: NICOTINE 7 MG/24 HOURS TOPICAL PATCH TD SCH (09:52)
[2020-10-11] MEDS: BACITRACIN 0.9 GM PACKET TP SCH (09:52)
[2020-10-11] MEDS: PRENATAL VITAMINS W/ FOLIC ACID TABLET (FP) PO SCH (09:52)
[2020-10-11] MEDS: TIMOLOL 0.5% OPHTHALMIC SOL 5 ML BOTTLE OU SCH ×2 (09:52→17:08)
[2020-10-11] MEDS: hydrOXYzine PAMOATE 50 MG CAPSULE (FP) PO PRN ×2 (09:53→21:45)
[2020-10-11] MEDS: ALBUTEROL SO4 HFA INHALER IH PRN (09:53)
[2020-10-11] MEDS: TAMSULOSIN HCL 0.4 MG CAP PO SCH (09:55)
[2020-10-11] MEDS: METHOCARBAMOL 500 MG TABLET PO PRN ×2 (09:55→21:44)
[2020-10-11] MEDS: ACETAMINOPHEN 325 MG TABLET (FP) PO PRN ×2 (09:58→21:45)
[2020-10-11] MEDS: DOCUSATE SODIUM 100 MG CAPSULE (FP) PO SCH (21:44)
[2020-10-11] MEDS: THIAMINE HCL 100 MG TABLET (FP) PO SCH (21:45)
[2020-10-11] MEDS: traZODone HCL 100 MG TABLET (FP) PO SCH (21:45)
[2020-10-11] MEDS: LATANOPROST 0.005% OPHTH SOLN 2.5ML BOTTLE OU SCH (21:45)
[2020-10-11] MEDS: MELATONIN 5 MG TABLETS PO SCH (21:46)
[2020-10-12] MEDS: hydrOXYzine PAMOATE 50 MG CAPSULE (FP) PO PRN ×2 (06:18→21:46)
[2020-10-12] MEDS: METHOCARBAMOL 500 MG TABLET PO PRN ×2 (06:18→21:46)
[2020-10-12] MEDS: GABAPENTIN 300 MG CAPSULE PO SCH ×3 (06:18→21:46)
[2020-10-12] MEDS: ACETAMINOPHEN 325 MG TABLET (FP) PO PRN ×2 (06:19→21:48)
[2020-10-12] MEDS: MAG HYDROX/AL HYDROX/SIMETH 30 ML UNIT-DOSE CUP PO PRN (06:20)
[2020-10-12] MEDS: FLUTICASONE PROP 0.05% 16 GM NASAL SPRAY NS SCH ×2 (09:24→21:47)
[2020-10-12] MEDS: NICOTINE 7 MG/24 HOURS TOPICAL PATCH TD SCH (09:24)
[2020-10-12] MEDS: TAMSULOSIN HCL 0.4 MG CAP PO SCH (09:24)
[2020-10-12] MEDS: BACITRACIN 0.9 GM PACKET TP SCH (09:25)
[2020-10-12] MEDS: FAMOTIDINE 20 MG TABLET PO SCH ×2 (09:25→21:47)
[2020-10-12] MEDS: PRENATAL VITAMINS W/ FOLIC ACID TABLET (FP) PO SCH (09:25)
[2020-10-12] MEDS: TIMOLOL 0.5% OPHTHALMIC SOL 5 ML BOTTLE OU SCH ×2 (09:26→16:47)
[2020-10-12] MEDS: DOCUSATE SODIUM 100 MG CAPSULE (FP) PO SCH (21:46)
[2020-10-12] MEDS: MELATONIN 5 MG TABLETS PO SCH (21:46)
[2020-10-12] MEDS: THIAMINE HCL 100 MG TABLET (FP) PO SCH (21:46)
[2020-10-12] MEDS: traZODone HCL 100 MG TABLET (FP) PO SCH (21:46)
[2020-10-12] MEDS: LATANOPROST 0.005% OPHTH SOLN 2.5ML BOTTLE OU SCH (21:47)
[2020-10-13] MEDS: GABAPENTIN 300 MG CAPSULE PO SCH ×3 (07:08→22:06)
[2020-10-13] MEDS: PRENATAL VITAMINS W/ FOLIC ACID TABLET (FP) PO SCH (09:49)
[2020-10-13] MEDS: FLUTICASONE PROP 0.05% 16 GM NASAL SPRAY NS SCH ×2 (09:50→22:07)
[2020-10-13] MEDS: BACITRACIN 0.9 GM PACKET TP SCH (09:50)
[2020-10-13] MEDS: NICOTINE 7 MG/24 HOURS TOPICAL PATCH TD SCH (09:50)
[2020-10-13] MEDS: TAMSULOSIN HCL 0.4 MG CAP PO SCH (09:50)
[2020-10-13] MEDS: FAMOTIDINE 20 MG TABLET PO SCH ×2 (09:51→22:07)
[2020-10-13] MEDS: TIMOLOL 0.5% OPHTHALMIC SOL 5 ML BOTTLE OU SCH ×2 (09:51→17:06)
[2020-10-13] MEDS: hydrOXYzine PAMOATE 50 MG CAPSULE (FP) PO PRN (09:53)
[2020-10-13] MEDS: MAG HYDROX/AL HYDROX/SIMETH 30 ML UNIT-DOSE CUP PO PRN (15:49)
[2020-10-13] MEDS: DOCUSATE SODIUM 100 MG CAPSULE (FP) PO SCH (22:06)
[2020-10-13] MEDS: METHOCARBAMOL 500 MG TABLET PO PRN (22:06)
[2020-10-13] MEDS: THIAMINE HCL 100 MG TABLET (FP) PO SCH (22:06)
[2020-10-13] MEDS: traZODone HCL 100 MG TABLET (FP) PO SCH (22:06)
[2020-10-13] MEDS: MELATONIN 5 MG TABLETS PO SCH (22:07)
[2020-10-13] MEDS: LATANOPROST 0.005% OPHTH SOLN 2.5ML BOTTLE OU SCH ×2 (22:08→22:10)
[2020-10-14] MEDS: GABAPENTIN 300 MG CAPSULE PO SCH ×3 (07:03→21:50)
[2020-10-14] MEDS ORDERED: SODIUM PHOSPHATE/NA BIPHOS 133 ML ENEMA RC ONE (10:11)
[2020-10-14] MEDS: TAMSULOSIN HCL 0.4 MG CAP PO SCH (10:13)
[2020-10-14] MEDS: FLUTICASONE PROP 0.05% 16 GM NASAL SPRAY NS SCH ×2 (10:13→21:51)
[2020-10-14] MEDS: BACITRACIN 0.9 GM PACKET TP SCH (10:13)
[2020-10-14] MEDS: NICOTINE 7 MG/24 HOURS TOPICAL PATCH TD SCH (10:14)
[2020-10-14] MEDS: TIMOLOL 0.5% OPHTHALMIC SOL 5 ML BOTTLE OU SCH ×3 (10:14→17:25)
[2020-10-14] MEDS: PRENATAL VITAMINS W/ FOLIC ACID TABLET (FP) PO SCH (10:14)
[2020-10-14] MEDS: FAMOTIDINE 20 MG TABLET PO SCH ×2 (10:14→21:50)
[2020-10-14] MEDS: MAGNESIUM CITRATE 300 ML BOTTLE PO PRN (10:16)
[2020-10-14] MEDS: hydrOXYzine PAMOATE 50 MG CAPSULE (FP) PO PRN ×2 (10:16→21:50)
[2020-10-14] MEDS: THIAMINE HCL 100 MG TABLET (FP) PO SCH (21:49)
[2020-10-14] MEDS: traZODone HCL 100 MG TABLET (FP) PO SCH (21:50)
[2020-10-14] MEDS: METHOCARBAMOL 500 MG TABLET PO PRN (21:50)
[2020-10-14] MEDS: LATANOPROST 0.005% OPHTH SOLN 2.5ML BOTTLE OU SCH (21:50)
[2020-10-14] MEDS: DOCUSATE SODIUM 100 MG CAPSULE (FP) PO SCH (21:50)
[2020-10-14] MEDS: MELATONIN 5 MG TABLETS PO SCH (21:50)
[2020-10-14] MEDS: ACETAMINOPHEN 325 MG TABLET (FP) PO PRN (21:50)
[2020-10-15] MEDS: GABAPENTIN 300 MG CAPSULE PO SCH ×3 (07:09→21:37)
[2020-10-15] MEDS: FLUTICASONE PROP 0.05% 16 GM NASAL SPRAY NS SCH ×2 (10:19→21:41)
[2020-10-15] MEDS: NICOTINE 7 MG/24 HOURS TOPICAL PATCH TD SCH (10:19)
[2020-10-15] MEDS: TAMSULOSIN HCL 0.4 MG CAP PO SCH (10:19)
[2020-10-15] MEDS: BACITRACIN 0.9 GM PACKET TP SCH (10:19)
[2020-10-15] MEDS: FAMOTIDINE 20 MG TABLET PO SCH ×2 (10:19→21:41)
[2020-10-15] MEDS: PRENATAL VITAMINS W/ FOLIC ACID TABLET (FP) PO SCH (10:19)
[2020-10-15] MEDS: hydrOXYzine PAMOATE 50 MG CAPSULE (FP) PO PRN (10:20)
[2020-10-15] MEDS: TIMOLOL 0.5% OPHTHALMIC SOL 5 ML BOTTLE OU SCH ×2 (10:21→17:57)
[2020-10-15] MEDS: METHOCARBAMOL 500 MG TABLET PO PRN ×2 (10:22→21:38)
[2020-10-15] MEDS: SELENIUM SULFIDE 2.5% LOTION 4 OZ. TP SCH (12:32)
[2020-10-15 18:01] VITALS: BP 110/70; PULSE 82
[2020-10-15] MEDS: POLYETHYLENE GLYCOL 3350 119 GM BTL PO SCH (21:35)
[2020-10-15] MEDS: THIAMINE HCL 100 MG TABLET (FP) PO SCH (21:37)
[2020-10-15] MEDS: MELATONIN 5 MG TABLETS PO SCH (21:37)
[2020-10-15] MEDS: ACETAMINOPHEN 325 MG TABLET (FP) PO PRN (21:37)
[2020-10-15] MEDS: traZODone HCL 100 MG TABLET (FP) PO SCH (21:38)
[2020-10-15] MEDS: BENZOCAINE 20 % GEL TUBE MM PRN (21:40)
[2020-10-15] MEDS: LIDOCAINE VISCOUS 2% ORAL/TOP 20 ML UNIT-DOSE CUP MM PRN (21:40)
[2020-10-15] MEDS: DOCUSATE SODIUM 100 MG CAPSULE (FP) PO SCH (21:41)
[2020-10-15] MEDS: LATANOPROST 0.005% OPHTH SOLN 2.5ML BOTTLE OU SCH (21:41)
[2020-10-16] MEDS: GABAPENTIN 300 MG CAPSULE PO SCH ×3 (07:03→21:39)
[2020-10-16] MEDS: hydrOXYzine PAMOATE 50 MG CAPSULE (FP) PO PRN ×2 (09:58→21:43)
[2020-10-16] MEDS: TAMSULOSIN HCL 0.4 MG CAP PO SCH (09:58)
[2020-10-16] MEDS: NICOTINE 7 MG/24 HOURS TOPICAL PATCH TD SCH (09:58)
[2020-10-16] MEDS: PRENATAL VITAMINS W/ FOLIC ACID TABLET (FP) PO SCH (09:59)
[2020-10-16] MEDS: FAMOTIDINE 20 MG TABLET PO SCH ×2 (09:59→21:40)
[2020-10-16] MEDS: FLUTICASONE PROP 0.05% 16 GM NASAL SPRAY NS SCH ×2 (10:00→21:39)
[2020-10-16] MEDS: BACITRACIN 0.9 GM PACKET TP SCH (10:00)
[2020-10-16] MEDS: SELENIUM SULFIDE 2.5% LOTION 4 OZ. TP SCH (10:01)
[2020-10-16] MEDS: TIMOLOL 0.5% OPHTHALMIC SOL 5 ML BOTTLE OU SCH ×2 (10:01→17:45)
[2020-10-16] MEDS: METHOCARBAMOL 500 MG TABLET PO PRN ×2 (10:02→21:42)
[2020-10-16] MEDS: MAG HYDROX/AL HYDROX/SIMETH 30 ML UNIT-DOSE CUP PO PRN (19:01)
[2020-10-16] MEDS: DOCUSATE SODIUM 100 MG CAPSULE (FP) PO SCH (21:38)
[2020-10-16] MEDS: MELATONIN 5 MG TABLETS PO SCH (21:39)
[2020-10-16] MEDS: traZODone HCL 100 MG TABLET (FP) PO SCH (21:39)
[2020-10-16] MEDS: POLYETHYLENE GLYCOL 3350 119 GM BTL PO SCH (21:40)
[2020-10-16] MEDS: THIAMINE HCL 100 MG TABLET (FP) PO SCH (21:41)
[2020-10-16] MEDS: LATANOPROST 0.005% OPHTH SOLN 2.5ML BOTTLE OU SCH (21:41)
[2020-10-16 22:52] VITALS: TEMP 97.7
[2020-10-17] MEDS: GABAPENTIN 300 MG CAPSULE PO SCH ×3 (06:49→21:26)
[2020-10-17] MEDS: PRENATAL VITAMINS W/ FOLIC ACID TABLET (FP) PO SCH (09:54)
[2020-10-17] MEDS: TAMSULOSIN HCL 0.4 MG CAP PO SCH (09:54)
[2020-10-17] MEDS: BACITRACIN 0.9 GM PACKET TP SCH (09:54)
[2020-10-17] MEDS: NICOTINE 7 MG/24 HOURS TOPICAL PATCH TD SCH (09:55)
[2020-10-17] MEDS: FLUTICASONE PROP 0.05% 16 GM NASAL SPRAY NS SCH ×2 (09:55→21:27)
[2020-10-17] MEDS: SELENIUM SULFIDE 2.5% LOTION 4 OZ. TP SCH (09:55)
[2020-10-17] MEDS: FAMOTIDINE 20 MG TABLET PO SCH ×2 (09:55→21:27)
[2020-10-17] MEDS: TIMOLOL 0.5% OPHTHALMIC SOL 5 ML BOTTLE OU SCH ×2 (09:56→22:07)
[2020-10-17] MEDS: hydrOXYzine PAMOATE 50 MG CAPSULE (FP) PO PRN ×2 (09:59→21:29)
[2020-10-17] MEDS: METHOCARBAMOL 500 MG TABLET PO PRN ×2 (09:59→21:29)
[2020-10-17] MEDS: MELATONIN 5 MG TABLETS PO SCH (21:26)
[2020-10-17] MEDS: traZODone HCL 100 MG TABLET (FP) PO SCH (21:26)
[2020-10-17] MEDS: DOCUSATE SODIUM 100 MG CAPSULE (FP) PO SCH (21:26)
[2020-10-17] MEDS: THIAMINE HCL 100 MG TABLET (FP) PO SCH (21:27)
[2020-10-17] MEDS: LATANOPROST 0.005% OPHTH SOLN 2.5ML BOTTLE OU SCH (21:27)
[2020-10-17] MEDS: BENZOCAINE 20 % GEL TUBE MM PRN (21:32)
[2020-10-17] MEDS: MAG HYDROX/AL HYDROX/SIMETH 30 ML UNIT-DOSE CUP PO PRN (21:33)
[2020-10-18] MEDS: GABAPENTIN 300 MG CAPSULE PO SCH ×3 (07:08→22:01)
[2020-10-18] MEDS: FLUTICASONE PROP 0.05% 16 GM NASAL SPRAY NS SCH ×2 (09:43→22:03)
[2020-10-18] MEDS: NICOTINE 7 MG/24 HOURS TOPICAL PATCH TD SCH (09:44)
[2020-10-18] MEDS: BACITRACIN 0.9 GM PACKET TP SCH (09:44)
[2020-10-18] MEDS: TAMSULOSIN HCL 0.4 MG CAP PO SCH (09:44)
[2020-10-18] MEDS: TIMOLOL 0.5% OPHTHALMIC SOL 5 ML BOTTLE OU SCH ×3 (09:45→19:30)
[2020-10-18] MEDS: SELENIUM SULFIDE 2.5% LOTION 4 OZ. TP SCH (09:45)
[2020-10-18] MEDS: FAMOTIDINE 20 MG TABLET PO SCH ×2 (09:45→22:01)
[2020-10-18] MEDS: PRENATAL VITAMINS W/ FOLIC ACID TABLET (FP) PO SCH (09:45)
[2020-10-18] MEDS: hydrOXYzine PAMOATE 50 MG CAPSULE (FP) PO PRN ×2 (09:46→22:04)
[2020-10-18] MEDS: ALBUTEROL SO4 HFA INHALER IH PRN ×2 (09:48→22:03)
[2020-10-18] MEDS: DOCUSATE SODIUM 100 MG CAPSULE (FP) PO SCH (22:01)
[2020-10-18] MEDS: LATANOPROST 0.005% OPHTH SOLN 2.5ML BOTTLE OU SCH (22:02)
[2020-10-18] MEDS: MELATONIN 5 MG TABLETS PO SCH (22:02)
[2020-10-18] MEDS: traZODone HCL 100 MG TABLET (FP) PO SCH (22:02)
[2020-10-18] MEDS: THIAMINE HCL 100 MG TABLET (FP) PO SCH (22:02)
[2020-10-18] MEDS: MAG HYDROX/AL HYDROX/SIMETH 30 ML UNIT-DOSE CUP PO PRN (22:04)
[2020-10-18] MEDS: BENZOCAINE 20 % GEL TUBE MM PRN (22:08)
[2020-10-19] MEDS: GABAPENTIN 300 MG CAPSULE PO SCH (06:58)
[2020-10-19] MEDS: FAMOTIDINE 20 MG TABLET PO SCH (09:30)
[2020-10-19] MEDS: PRENATAL VITAMINS W/ FOLIC ACID TABLET (FP) PO SCH (09:30)
[2020-10-19] MEDS: TAMSULOSIN HCL 0.4 MG CAP PO SCH (09:30)
[2020-10-19] MEDS: COLLOIDAL OATMEAL 1 BAR EACH TP PRN (09:30)
[2020-10-19] MEDS: FLUTICASONE PROP 0.05% 16 GM NASAL SPRAY NS SCH (09:31)
[2020-10-19] MEDS: BACITRACIN 0.9 GM PACKET TP SCH (09:31)
[2020-10-19] MEDS: NICOTINE 7 MG/24 HOURS TOPICAL PATCH TD SCH (09:32)
[2020-10-19] MEDS: SELENIUM SULFIDE 2.5% LOTION 4 OZ. TP SCH (09:32)
[2020-10-19] MEDS: TIMOLOL 0.5% OPHTHALMIC SOL 5 ML BOTTLE OU SCH (09:32)
== END 2020-10-19 10:25 | disposition home or self-care (01) | DRG 772 ==
LOC: YASAS 14:50 → Y5N 18:22
PROVIDERS: ADMIT Allergy & Immunology; ATTEND Allergy & Immunology
PROC: HZ42ZZZ Group Counseling for Substance Abuse Treatment, Cognitive-Behavioral (ICD-10-PCS; principal; 2020-09-21)
DX: F10.20 Alcohol dependence, uncomplicated (principal); F12.20 Cannabis dependence, uncomplicated; F17.210 Nicotine dependence, cigarettes, uncomplicated; F41.9 Anxiety disorder, unspecified; F32.9 Major depressive disorder, single episode, unspecified; H40.10X1 Unspecified open-angle glaucoma, mild stage; J44.9 Chronic obstructive pulmonary disease, unspecified; K21.9 Gastro-esophageal reflux disease without esophagitis; L30.9 Dermatitis, unspecified; M19.90 Unspecified osteoarthritis, unspecified site; M54.5 Low back pain; G89.29 Other chronic pain; N40.0 Benign prostatic hyperplasia without lower urinary tract symptoms; K04.7 Periapical abscess without sinus; K59.00 Constipation, unspecified; R26.89 Other abnormalities of gait and mobility; Z99.89 Dependence on other enabling machines and devices; Z87.11 Personal history of peptic ulcer disease; Z98.41 Cataract extraction status, right eye; Z98.42 Cataract extraction status, left eye; Z87.81 Personal history of (healed) traumatic fracture; Z98.890 Other specified postprocedural states; Z88.0 Allergy status to penicillin; Z88.6 Allergy status to analgesic agent; Z88.8 Allergy status to other drugs, medicaments and biological substances; Z91.013 Allergy to seafood; Z91.018 Allergy to other foods; S01.81XD Laceration without foreign body of other part of head, subsequent encounter; S01.512D Laceration without foreign body of oral cavity, subsequent encounter; W19.XXXD Unspecified fall, subsequent encounter

== ENCOUNTER 2021-02-15 18:27 | Inpatient (IN) | payer OTHER ==
[2021-02-15] MEDS ORDERED: ALBUTEROL SO4 HFA INHALER IH PRN (21:41)
[2021-02-15] MEDS ORDERED: hydrOXYzine PAMOATE 25 MG CAPSULE (FP) PO PRN (21:43)
[2021-02-15] MEDS ORDERED: ACETAMINOPHEN 325 MG TABLET (FP) PO PRN ×2 (21:43)
[2021-02-15] MEDS ORDERED: ONDANSETRON *ODT* 4 MG TABLET SL PRN (21:43)
[2021-02-15] MEDS ORDERED: MENTHOL/PHENOL 1 EACH UD MM PRN (21:43)
[2021-02-15] MEDS ORDERED: MAGNESIUM CITRATE 300 ML BOTTLE PO PRN (21:43)
[2021-02-15] MEDS ORDERED: MAGNESIUM HYDROX 2400MG/30ML ORAL SUSPENSION 30 ML CUP PO PRN (21:43)
[2021-02-15] MEDS ORDERED: NICOTINE POLACRILEX 2 MG GUM BUC PRN (21:43)
[2021-02-15] MEDS ORDERED: MAG HYDROX/AL HYDROX/SIMETH 30 ML UNIT-DOSE CUP PO PRN (21:43)
[2021-02-15] MEDS ORDERED: chlordiazePOXIDE HCL 25 MG CAPSULE PO PRN (21:44)
[2021-02-15 22:03] VITALS: BMI 29.8
[2021-02-16] MEDS ORDERED: ALBUTEROL SO4 2.5/IPRATROPIUM 0.5 INH SOL 3 ML VIAL.NEB. NEB PRN (00:15)
[2021-02-16] MEDS: chlordiazePOXIDE HCL 25 MG CAPSULE PO SCH ×5 (00:48→22:04)
[2021-02-16] MEDS: LATANOPROST 0.005% OPHTH SOLN 2.5ML BOTTLE OU SCH ×2 (00:49→23:10)
[2021-02-16] MEDS: BUDESONIDE/FORMETEROL FUMARATE 160/4.5 mcg INHALER IH SCH ×4 (00:49→22:05)
[2021-02-16] MEDS: traZODone HCL 100 MG TABLET (FP) PO SCH ×2 (00:49→21:53)
[2021-02-16] MEDS: THIAMINE HCL 100 MG TABLET (FP) PO SCH ×2 (00:52→21:53)
[2021-02-16] MEDS: MELATONIN 5 MG TABLETS PO SCH ×2 (01:02→21:53)
[2021-02-16] MEDS: TAMSULOSIN HCL 0.4 MG CAP PO SCH (09:17)
[2021-02-16] MEDS: FAMOTIDINE 20 MG TABLET PO SCH (10:44)
[2021-02-16] MEDS: PRENATAL VITAMINS W/ FOLIC ACID TABLET (FP) PO SCH (10:44)
[2021-02-16] MEDS ORDERED: BUDESONIDE/FORMETEROL FUMARATE 160/4.5 mcg INHALER IH SCH (12:15)
[2021-02-16] MEDS: TIMOLOL 0.5% OPHTHALMIC SOL 5 ML BOTTLE OU SCH ×3 (14:12→22:05)
[2021-02-16] MEDS ORDERED: MASKS NR ONE (21:59)
[2021-02-17] MEDS: chlordiazePOXIDE HCL 25 MG CAPSULE PO SCH ×4 (06:40→23:13)
[2021-02-17] MEDS ORDERED: COLLOIDAL OATMEAL 1 BAR EACH TP PRN (08:49)
[2021-02-17] MEDS: TAMSULOSIN HCL 0.4 MG CAP PO SCH (10:12)
[2021-02-17] MEDS: PRENATAL VITAMINS W/ FOLIC ACID TABLET (FP) PO SCH (10:12)
[2021-02-17] MEDS: TIMOLOL 0.5% OPHTHALMIC SOL 5 ML BOTTLE OU SCH ×2 (10:12→23:15)
[2021-02-17] MEDS: BUDESONIDE/FORMETEROL FUMARATE 160/4.5 mcg INHALER IH SCH ×2 (10:12→23:15)
[2021-02-17] MEDS: FAMOTIDINE 20 MG TABLET PO SCH (10:12)
[2021-02-17] MEDS: MINERAL OIL/PETROLAT/WATER TOPICAL CREAM 113 GM JAR TP SCH (10:12)
[2021-02-17] MEDS: traZODone HCL 100 MG TABLET (FP) PO SCH (23:12)
[2021-02-17] MEDS: THIAMINE HCL 100 MG TABLET (FP) PO SCH (23:13)
[2021-02-17] MEDS: MELATONIN 5 MG TABLETS PO SCH (23:13)
[2021-02-17] MEDS: LATANOPROST 0.005% OPHTH SOLN 2.5ML BOTTLE OU SCH (23:15)
[2021-02-18] MEDS ORDERED: chlordiazePOXIDE HCL 10 MG CAPSULE PO PRN
[2021-02-18] MEDS: chlordiazePOXIDE HCL 10 MG CAPSULE PO SCH ×2 (06:21→10:44)
[2021-02-18] MEDS: BUDESONIDE/FORMETEROL FUMARATE 160/4.5 mcg INHALER IH SCH (10:42)
[2021-02-18] MEDS: TAMSULOSIN HCL 0.4 MG CAP PO SCH (10:43)
[2021-02-18] MEDS: PRENATAL VITAMINS W/ FOLIC ACID TABLET (FP) PO SCH (10:43)
[2021-02-18] MEDS: FAMOTIDINE 20 MG TABLET PO SCH (10:44)
[2021-02-18] MEDS: MINERAL OIL/PETROLAT/WATER TOPICAL CREAM 113 GM JAR TP SCH (10:46)
[2021-02-18] MEDS: TIMOLOL 0.5% OPHTHALMIC SOL 5 ML BOTTLE OU SCH (10:47)
[2021-02-18 13:14] VITALS: BP 129/84; PULSE 89; TEMP 97.3
[2021-02-19] MEDS ORDERED: chlordiazePOXIDE HCL 10 MG CAPSULE PO SCH (05:00)
[2021-02-20] MEDS ORDERED: chlordiazePOXIDE HCL 10 MG CAPSULE PO ONE (05:00)
== END 2021-02-18 15:35 | disposition home or self-care (01) | DRG 775 ==
LOC: YASAS 18:27 → UNDOADMIN 23:11 → Y6N 23:11
PROVIDERS: ADMIT Allergy & Immunology; ATTEND Allergy & Immunology
PROC: HZ2ZZZZ Detoxification Services for Substance Abuse Treatment (ICD-10-PCS; principal; 2021-02-15)
DX: F10.230 Alcohol dependence with withdrawal, uncomplicated (principal); F10.220 Alcohol dependence with intoxication, uncomplicated; F17.210 Nicotine dependence, cigarettes, uncomplicated; F20.9 Schizophrenia, unspecified; F41.8 Other specified anxiety disorders; H40.9 Unspecified glaucoma; J44.9 Chronic obstructive pulmonary disease, unspecified; K21.9 Gastro-esophageal reflux disease without esophagitis; N40.0 Benign prostatic hyperplasia without lower urinary tract symptoms; M54.5 Low back pain; G89.29 Other chronic pain; M19.90 Unspecified osteoarthritis, unspecified site; Z99.89 Dependence on other enabling machines and devices; Z98.890 Other specified postprocedural states; Z86.2 Personal history of diseases of the blood and blood-forming organs and certain disorders involving the immune mechanism; Z87.19 Personal history of other diseases of the digestive system; Z88.0 Allergy status to penicillin; Z88.6 Allergy status to analgesic agent; Z88.8 Allergy status to other drugs, medicaments and biological substances; Z91.013 Allergy to seafood; Z98.49 Cataract extraction status, unspecified eye; Z96.661 Presence of right artificial ankle joint
CPT/HCPCS: C9803; Q0162; U0003

== ENCOUNTER 2021-04-13 19:42 | Inpatient (IN) | payer OTHER ==
[2021-04-13] MEDS ORDERED: chlordiazePOXIDE HCL 25 MG CAPSULE PO PRN (21:51)
[2021-04-13] MEDS ORDERED: BISMUTH SUBSALICYLATE 524 MG/30 ML PO PRN (21:51)
[2021-04-13] MEDS ORDERED: MAGNESIUM CITRATE 300 ML BOTTLE PO PRN (21:51)
[2021-04-13] MEDS ORDERED: METHOCARBAMOL 500 MG TABLET PO PRN (21:51)
[2021-04-13] MEDS ORDERED: NICOTINE POLACRILEX 2 MG GUM BUC PRN (21:51)
[2021-04-13] MEDS ORDERED: ACETAMINOPHEN 325 MG TABLET (FP) PO PRN (21:51)
[2021-04-13 22:50] VITALS: BMI 25.7
[2021-04-14] MEDS ORDERED: chlordiazePOXIDE HCL 25 MG CAPSULE ONE (00:05)
[2021-04-14] MEDS: THIAMINE HCL 100 MG TABLET (FP) PO SCH ×2 (00:12→22:31)
[2021-04-14] MEDS: MELATONIN 5 MG TABLETS PO SCH ×2 (00:12→22:34)
[2021-04-14] MEDS: chlordiazePOXIDE HCL 25 MG CAPSULE PO SCH ×5 (00:13→22:31)
[2021-04-14] MEDS: PRENATAL VITAMINS W/ FOLIC ACID TABLET (FP) PO SCH (11:23)
[2021-04-14] MEDS: TIMOLOL 0.5% OPHTHALMIC SOL 5 ML BOTTLE OU SCH ×2 (11:23→22:35)
[2021-04-14] MEDS: predniSONE 20 MG TABLET (UD) PO SCH (11:23)
[2021-04-14] MEDS: NICOTINE 21 MG/24 HOURS TOPICAL PATCH TD SCH (11:24)
[2021-04-14] MEDS: FAMOTIDINE 20 MG TABLET PO SCH (11:58)
[2021-04-14] MEDS: BUDESONIDE/FORMETEROL FUMARATE 160/4.5 mcg INHALER IH SCH ×2 (11:58→22:35)
[2021-04-14] MEDS: traZODone HCL 100 MG TABLET (FP) PO SCH (22:31)
[2021-04-14] MEDS: OLANZapine 10 MG TABLET PO SCH (22:31)
[2021-04-14] MEDS: LATANOPROST 0.005% OPHTH SOLN 2.5ML BOTTLE OU SCH (22:35)
[2021-04-14] MEDS: MAG HYDROX/AL HYDROX/SIMETH 30 ML UNIT-DOSE CUP PO PRN (22:36)
[2021-04-15] MEDS: chlordiazePOXIDE HCL 25 MG CAPSULE PO SCH ×4 (05:49→22:52)
[2021-04-15 10:01] LABS: HEMOGLOBIN 11.7 GM/dL (11.7-16.9); MCH 28.3 pg (25.7-33.7); MCHC 33.3 g/dl (32.0-35.9); MEAN CELL VOLUME 84.9 fl (80-96); MEAN PLT VOLUME 8.6 fl (7.5-11.1); PLATELET COUNT 190 K/MM3 (134-434); RBC 4.12 M/mm3 (4.00-5.60); RDW 17.6 % (11.9-15.9); WHITE BLOOD COUNT 6.9 K/mm3 (4.0-10.0)
[2021-04-15 10:10] LABS: ALBUMIN 3.4 g/dl (3.4-5.0); BLOOD UREA NITROGEN 11.5 mg/dL (7-18); CALCIUM 9.3 mg/dL (8.5-10.1)
[2021-04-15 10:14] LABS: BILIRUBIN,TOTAL 0.5 mg/dL (0.2-1); CREATININE 0.9 mg/dL (0.55-1.3); TOT PROT 6.7 g/dl (6.4-8.2)
[2021-04-15] MEDS: BUDESONIDE/FORMETEROL FUMARATE 160/4.5 mcg INHALER IH SCH ×2 (11:12→22:55)
[2021-04-15] MEDS: TIMOLOL 0.5% OPHTHALMIC SOL 5 ML BOTTLE OU SCH ×2 (11:12→22:55)
[2021-04-15] MEDS: PRENATAL VITAMINS W/ FOLIC ACID TABLET (FP) PO SCH (11:12)
[2021-04-15] MEDS: MAG HYDROX/AL HYDROX/SIMETH 30 ML UNIT-DOSE CUP PO PRN (11:13)
[2021-04-15] MEDS: FAMOTIDINE 20 MG TABLET PO SCH ×2 (11:13→22:52)
[2021-04-15] MEDS: predniSONE 20 MG TABLET (UD) PO SCH (11:13)
[2021-04-15] MEDS: NICOTINE 21 MG/24 HOURS TOPICAL PATCH TD SCH (11:14)
[2021-04-15] MEDS: MAGNESIUM HYDROX 2400MG/30ML ORAL SUSPENSION 30 ML CUP PO PRN (13:20)
[2021-04-15] MEDS: MENTHOL/PHENOL 1 EACH UD MM PRN (15:15)
[2021-04-15] MEDS: guaiFENesin 200 MG/10 ML 10 ML UNIT-DOSE CUPS PO PRN (15:15)
[2021-04-15] MEDS: ACETAMINOPHEN 325 MG TABLET (FP) PO PRN ×2 (15:16→23:12)
[2021-04-15] MEDS: FLUTICASONE PROP 0.05% 16 GM NASAL SPRAY NS SCH ×2 (15:23→22:54)
[2021-04-15] MEDS: ONDANSETRON *ODT* 4 MG TABLET SL PRN (19:26)
[2021-04-15] MEDS: OLANZapine 10 MG TABLET PO SCH (22:52)
[2021-04-15] MEDS: THIAMINE HCL 100 MG TABLET (FP) PO SCH (22:52)
[2021-04-15] MEDS: traZODone HCL 100 MG TABLET (FP) PO SCH (22:52)
[2021-04-15] MEDS: MELATONIN 5 MG TABLETS PO SCH (22:55)
[2021-04-15] MEDS: LATANOPROST 0.005% OPHTH SOLN 2.5ML BOTTLE OU SCH (22:55)
[2021-04-16] MEDS ORDERED: chlordiazePOXIDE HCL 10 MG CAPSULE PO PRN
[2021-04-16] MEDS: chlordiazePOXIDE HCL 10 MG CAPSULE PO SCH ×4 (06:15→23:12)
[2021-04-16 10:07] LABS: SARS-CoV-2 NAA Not Detected (Not Detected)
[2021-04-16] MEDS ORDERED: predniSONE 10 MG TABLET (UD) PO ONE (10:15)
[2021-04-16] MEDS: BUDESONIDE/FORMETEROL FUMARATE 160/4.5 mcg INHALER IH SCH ×2 (11:23→23:11)
[2021-04-16] MEDS: NICOTINE 21 MG/24 HOURS TOPICAL PATCH TD SCH (11:23)
[2021-04-16] MEDS: TAMSULOSIN HCL 0.4 MG CAP PO SCH (11:23)
[2021-04-16] MEDS: FAMOTIDINE 20 MG TABLET PO SCH ×2 (11:23→23:11)
[2021-04-16] MEDS: PRENATAL VITAMINS W/ FOLIC ACID TABLET (FP) PO SCH (11:23)
[2021-04-16] MEDS: TIMOLOL 0.5% OPHTHALMIC SOL 5 ML BOTTLE OU SCH ×3 (11:23→23:56)
[2021-04-16] MEDS: FLUTICASONE PROP 0.05% 16 GM NASAL SPRAY NS SCH ×2 (11:23→23:11)
[2021-04-16] MEDS ORDERED: COLLOIDAL OATMEAL 1 BAR EACH TP PRN (15:46)
[2021-04-16] MEDS: ALBUTEROL SO4 HFA INHALER IH PRN ×2 (18:30→23:17)
[2021-04-16] MEDS: MENTHOL/PHENOL 1 EACH UD MM PRN (18:30)
[2021-04-16] MEDS: MELATONIN 5 MG TABLETS PO SCH (23:11)
[2021-04-16] MEDS: THIAMINE HCL 100 MG TABLET (FP) PO SCH (23:11)
[2021-04-16] MEDS: traZODone HCL 100 MG TABLET (FP) PO SCH (23:11)
[2021-04-16] MEDS: LATANOPROST 0.005% OPHTH SOLN 2.5ML BOTTLE OU SCH (23:12)
[2021-04-16] MEDS: OLANZapine 10 MG TABLET PO SCH (23:12)
[2021-04-16] MEDS: ACETAMINOPHEN 325 MG TABLET (FP) PO PRN (23:13)
[2021-04-17] MEDS: chlordiazePOXIDE HCL 10 MG CAPSULE PO SCH ×2 (06:10→17:40)
[2021-04-17] MEDS ORDERED: predniSONE 20 MG TABLET (UD) PO ONE (10:00)
[2021-04-17] MEDS: BUDESONIDE/FORMETEROL FUMARATE 160/4.5 mcg INHALER IH SCH ×2 (10:33→22:59)
[2021-04-17] MEDS: PRENATAL VITAMINS W/ FOLIC ACID TABLET (FP) PO SCH (10:33)
[2021-04-17] MEDS: FAMOTIDINE 20 MG TABLET PO SCH ×2 (10:34→22:58)
[2021-04-17] MEDS: NICOTINE 21 MG/24 HOURS TOPICAL PATCH TD SCH (10:34)
[2021-04-17] MEDS: TAMSULOSIN HCL 0.4 MG CAP PO SCH (10:34)
[2021-04-17] MEDS: TIMOLOL 0.5% OPHTHALMIC SOL 5 ML BOTTLE OU SCH ×2 (10:34→22:59)
[2021-04-17] MEDS: FLUTICASONE PROP 0.05% 16 GM NASAL SPRAY NS SCH ×2 (10:34→22:59)
[2021-04-17] MEDS: MENTHOL/PHENOL 1 EACH UD MM PRN ×2 (11:02→17:48)
[2021-04-17] MEDS: guaiFENesin 200 MG/10 ML 10 ML UNIT-DOSE CUPS PO PRN (14:24)
[2021-04-17] MEDS: MAGNESIUM HYDROX 2400MG/30ML ORAL SUSPENSION 30 ML CUP PO PRN (14:25)
[2021-04-17] MEDS: ONDANSETRON *ODT* 4 MG TABLET SL PRN (15:09)
[2021-04-17] MEDS: ACETAMINOPHEN 325 MG TABLET (FP) PO PRN (15:23)
[2021-04-17] MEDS ORDERED: TRIMETHOBENZAMIDE HCL 200MG/2ML INJ IM PRN (19:54)
[2021-04-17] MEDS ORDERED: traZODone HCL 50 MG TABLET (FP) ONE (22:07)
[2021-04-17] MEDS: OLANZapine 10 MG TABLET PO SCH (22:58)
[2021-04-17] MEDS: THIAMINE HCL 100 MG TABLET (FP) PO SCH (22:58)
[2021-04-17] MEDS: traZODone HCL 100 MG TABLET (FP) PO SCH (22:58)
[2021-04-17] MEDS: MELATONIN 5 MG TABLETS PO SCH (22:59)
[2021-04-17] MEDS: LATANOPROST 0.005% OPHTH SOLN 2.5ML BOTTLE OU SCH (22:59)
[2021-04-18] MEDS ORDERED: chlordiazePOXIDE HCL 10 MG CAPSULE PO ONE (05:00)
[2021-04-18] MEDS ORDERED: predniSONE 10 MG TABLET (UD) PO ONE (10:00)
[2021-04-18] MEDS: ONDANSETRON *ODT* 4 MG TABLET SL PRN (10:15)
[2021-04-18] MEDS: FLUTICASONE PROP 0.05% 16 GM NASAL SPRAY NS SCH ×2 (10:16→23:11)
[2021-04-18] MEDS: TAMSULOSIN HCL 0.4 MG CAP PO SCH (10:16)
[2021-04-18] MEDS: FAMOTIDINE 20 MG TABLET PO SCH ×2 (10:16→23:10)
[2021-04-18] MEDS: BUDESONIDE/FORMETEROL FUMARATE 160/4.5 mcg INHALER IH SCH ×2 (10:17→23:11)
[2021-04-18] MEDS: TIMOLOL 0.5% OPHTHALMIC SOL 5 ML BOTTLE OU SCH ×2 (10:17→23:12)
[2021-04-18] MEDS: MAGNESIUM HYDROX 2400MG/30ML ORAL SUSPENSION 30 ML CUP PO PRN (10:17)
[2021-04-18] MEDS: MAG HYDROX/AL HYDROX/SIMETH 30 ML UNIT-DOSE CUP PO PRN (10:17)
[2021-04-18] MEDS: MENTHOL/PHENOL 1 EACH UD MM PRN ×2 (10:18→15:00)
[2021-04-18] MEDS: PRENATAL VITAMINS W/ FOLIC ACID TABLET (FP) PO SCH (10:18)
[2021-04-18] MEDS: NICOTINE 21 MG/24 HOURS TOPICAL PATCH TD SCH (10:18)
[2021-04-18] MEDS: guaiFENesin 200 MG/10 ML 10 ML UNIT-DOSE CUPS PO PRN (15:00)
[2021-04-18] MEDS ORDERED: PSEUDOEPHEDRINE HCL 60 MG TABLET PO PRN (17:19)
[2021-04-18] MEDS ORDERED: P-EPHED 60MG/TRIPROLIDI 2.5MG TABLET PO PRN (17:32)
[2021-04-18] MEDS: traZODone HCL 100 MG TABLET (FP) PO SCH (23:10)
[2021-04-18] MEDS: THIAMINE HCL 100 MG TABLET (FP) PO SCH (23:10)
[2021-04-18] MEDS: OLANZapine 10 MG TABLET PO SCH (23:10)
[2021-04-18] MEDS: MELATONIN 5 MG TABLETS PO SCH (23:11)
[2021-04-18] MEDS: LATANOPROST 0.005% OPHTH SOLN 2.5ML BOTTLE OU SCH (23:12)
[2021-04-18] MEDS: ALBUTEROL SO4 HFA INHALER IH PRN (23:25)
[2021-04-19] MEDS ORDERED: predniSONE 5 MG TABLET (UD) PO ONE (10:00)
[2021-04-19] MEDS: PRENATAL VITAMINS W/ FOLIC ACID TABLET (FP) PO SCH (10:39)
[2021-04-19] MEDS: FLUTICASONE PROP 0.05% 16 GM NASAL SPRAY NS SCH (10:39)
[2021-04-19] MEDS: FAMOTIDINE 20 MG TABLET PO SCH (10:39)
[2021-04-19] MEDS: TAMSULOSIN HCL 0.4 MG CAP PO SCH (10:39)
[2021-04-19] MEDS: BUDESONIDE/FORMETEROL FUMARATE 160/4.5 mcg INHALER IH SCH (10:40)
[2021-04-19] MEDS: NICOTINE 21 MG/24 HOURS TOPICAL PATCH TD SCH (10:40)
[2021-04-19] MEDS: TIMOLOL 0.5% OPHTHALMIC SOL 5 ML BOTTLE OU SCH (10:40)
[2021-04-19] MEDS: guaiFENesin 200 MG/10 ML 10 ML UNIT-DOSE CUPS PO PRN (11:00)
[2021-04-19] MEDS: MENTHOL/PHENOL 1 EACH UD MM PRN (11:00)
[2021-04-19 14:33] VITALS: BP 105/68; PULSE 89; TEMP 98.6
== END 2021-04-19 15:13 | disposition other institution (70) | DRG 775 ==
LOC: YASAS 19:42 → Y6N 04-14 00:34
PROVIDERS: ADMIT Allergy & Immunology; ATTEND Allergy & Immunology
DX: F10.230 Alcohol dependence with withdrawal, uncomplicated (principal); F17.210 Nicotine dependence, cigarettes, uncomplicated; F20.0 Paranoid schizophrenia; F10.24 Alcohol dependence with alcohol-induced mood disorder; F10.282 Alcohol dependence with alcohol-induced sleep disorder; H40.9 Unspecified glaucoma; J44.9 Chronic obstructive pulmonary disease, unspecified; K21.9 Gastro-esophageal reflux disease without esophagitis; M19.90 Unspecified osteoarthritis, unspecified site; N40.0 Benign prostatic hyperplasia without lower urinary tract symptoms; G40.89 Other seizures; M54.5 Low back pain; G89.29 Other chronic pain; Z99.89 Dependence on other enabling machines and devices; Z88.6 Allergy status to analgesic agent; Z88.8 Allergy status to other drugs, medicaments and biological substances; Z91.018 Allergy to other foods
CPT/HCPCS: 36415; 80053; 85027; 86780; 93005; 93010; C9803; Q0162; U0003; U0005

== ENCOUNTER → 2021-04-13 | Emergency (ER) | payer OTHER ==
[~2021-04-13] MED LIST: ACETAMINOPHEN 325 MG TABLET (FP) ONE; ACETAMINOPHEN 325 MG TABLET (FP) PO ONE; ALBUTEROL SO4 HFA INHALER IH ONE; FAMOTIDINE 20 MG TABLET ONE; FAMOTIDINE 20 MG TABLET PO ONE; MAG HYDROX/AL HYDROX/SIMETH -MYLANTA- ORAL SUSPENSION PO ONE; MAG HYDROX/AL HYDROX/SIMETH 30 ML UNIT-DOSE CUP ONE; chlordiazePOXIDE HCL 25 MG CAPSULE ONE; chlordiazePOXIDE HCL 25 MG CAPSULE PO ONE; predniSONE 20 MG TABLET (UD) ONE; predniSONE 20 MG TABLET (UD) PO ONE
[2021-04-13 12:03] VITALS: BMI 34.0
[2021-04-13 12:56] LABS: BASO % 0.4 % (0-2.0); EOS % 5.2 % (0-4.5); HEMATOCRIT 34.1 % (35.4-49); HEMOGLOBIN 11.4 GM/dL (11.7-16.9); LYMPH % 18.5 % (8-40); MCH 28.4 pg (25.7-33.7); MCHC 33.5 g/dl (32.0-35.9); MEAN CELL VOLUME 84.6 fl (80-96); MEAN PLT VOLUME 7.7 fl (7.5-11.1); MONO % 8.5 % (3.8-10.2); NEUT % 67.4 % (42.8-82.8); PLATELET COUNT 188 K/MM3 (134-434); RBC 4.03 M/mm3 (4.00-5.60); RDW 17.4 % (11.9-15.9); WHITE BLOOD COUNT 4.8 K/mm3 (4.0-10.0)
[2021-04-13 13:01] LABS: INR 0.95 (0.83-1.09); PROTHROMBIN TIME (PATIENT) 11.7 SEC (9.7-13.0)
[2021-04-13 13:04] LABS: ACTIVATED PTT 34.2 SECONDS (25.2-36.5)
[2021-04-13 13:47] LABS: CHLORIDE 99 mmol/L (98-107); SODIUM 137 mmol/L (136-145)
[2021-04-13 13:49] LABS: ALBUMIN 3.7 g/dl (3.4-5.0); ANION GAP 11 MMOL/L (8-16); BLOOD UREA NITROGEN 3.2 mg/dL (7-18); CALCIUM 8.1 mg/dL (8.5-10.1); CO2 27 mmol/L (21-32); GLUCOSE,RANDOM 75 mg/dL (74-106); MAGNESIUM 1.9 mg/dL (1.8-2.4)
[2021-04-13 13:51] LABS: LIPASE 281 U/L (73-393)
[2021-04-13 13:53] LABS: SGOT/AST 42 U/L (15-37); SGPT/ALT 28 U/L (13-61)
[2021-04-13 13:54] LABS: BILIRUBIN,TOTAL 0.3 mg/dL (0.2-1); CREATININE 0.7 mg/dL (0.55-1.3); TOT PROT 7.1 g/dl (6.4-8.2)
[2021-04-13 13:55] LABS: ALK PHOS 129 U/L (45-117)
[2021-04-13 17:13] VITALS: BP 101/68; PULSE 95; TEMP 98.1
== END | disposition home or self-care (01) ==
LOC: JER 11:45
DX: R07.9 Chest pain, unspecified (principal)
CPT/HCPCS: 36415; 70450-TC; 71045-TC-FY; 80053; 82550; 82553; 82962; 83690; 83735; 84484; 85025; 85610; 85730; 93005; 93010; 99285-25

== ENCOUNTER 2021-04-19 15:22 | Inpatient (IN) | payer OTHER ==
[2021-04-19] MEDS ORDERED: P-EPHED 60MG/TRIPROLIDI 2.5MG TABLET PO PRN ×2 (15:39→15:58)
[2021-04-19] MEDS ORDERED: MENTHOL/PHENOL 1 EACH UD MM PRN (15:39)
[2021-04-19] MEDS ORDERED: LOPERAMIDE HCL 2 MG CAPSULE PO PRN (15:39)
[2021-04-19] MEDS ORDERED: MAGNESIUM CITRATE 300 ML BOTTLE PO PRN (15:39)
[2021-04-19] MEDS ORDERED: NICOTINE POLACRILEX 2 MG GUM BUC PRN (15:39)
[2021-04-19] MEDS ORDERED: IBUPROFEN 400 MG TABLET (FP) PO PRN (15:39)
[2021-04-19] MEDS ORDERED: guaiFENesin 200 MG/10 ML 10 ML UNIT-DOSE CUPS PO PRN (15:39)
[2021-04-19] MEDS ORDERED: MAGNESIUM HYDROX 2400MG/30ML ORAL SUSPENSION 30 ML CUP PO PRN (15:39)
[2021-04-19] MEDS ORDERED: TUBERCULIN PPD 5 TU/0.1ML VIAL ID ONE (16:46)
[2021-04-19] MEDS: BUDESONIDE/FORMETEROL FUMARATE 160/4.5 mcg INHALER IH SCH (21:56)
[2021-04-19] MEDS: MELATONIN 5 MG TABLETS PO SCH (21:57)
[2021-04-19] MEDS: hydrOXYzine PAMOATE 25 MG CAPSULE (FP) PO PRN (21:57)
[2021-04-19] MEDS: THIAMINE HCL 100 MG TABLET (FP) PO SCH (21:57)
[2021-04-19] MEDS: LATANOPROST 0.005% OPHTH SOLN 2.5ML BOTTLE OU SCH (21:57)
[2021-04-19] MEDS: ALBUTEROL SO4 HFA INHALER IH PRN (21:58)
[2021-04-19] MEDS: TIMOLOL 0.5% OPHTHALMIC SOL 5 ML BOTTLE OU SCH (21:59)
[2021-04-19] MEDS ORDERED: PT OWN MED DRAWER 7, Y5N ONE (22:10)
[2021-04-20] MEDS: PRENATAL VITAMINS W/ FOLIC ACID TABLET (FP) PO SCH (09:52)
[2021-04-20] MEDS: TAMSULOSIN HCL 0.4 MG CAP PO SCH (09:53)
[2021-04-20] MEDS: NICOTINE 21 MG/24 HOURS TOPICAL PATCH TD SCH (09:53)
[2021-04-20] MEDS: BUDESONIDE/FORMETEROL FUMARATE 160/4.5 mcg INHALER IH SCH ×2 (09:53→21:27)
[2021-04-20] MEDS: TIMOLOL 0.5% OPHTHALMIC SOL 5 ML BOTTLE OU SCH ×2 (09:56→21:32)
[2021-04-20] MEDS ORDERED: FAMOTIDINE 20 MG TABLET PO SCH (10:00)
[2021-04-20] MEDS: ACETAMINOPHEN 325 MG TABLET (FP) PO PRN (12:33)
[2021-04-20] MEDS: PANTOPRAZOLE 40 MG TABLET PO SCH (19:04)
[2021-04-20] MEDS: MELATONIN 5 MG TABLETS PO SCH (21:27)
[2021-04-20] MEDS: THIAMINE HCL 100 MG TABLET (FP) PO SCH (21:27)
[2021-04-20] MEDS: hydrOXYzine PAMOATE 25 MG CAPSULE (FP) PO PRN (21:27)
[2021-04-20] MEDS: ALBUTEROL SO4 HFA INHALER IH PRN (21:28)
[2021-04-20] MEDS: LATANOPROST 0.005% OPHTH SOLN 2.5ML BOTTLE OU SCH (21:29)
[2021-04-20] MEDS: traZODone HCL 100 MG TABLET (FP) PO SCH (21:31)
[2021-04-20] MEDS: FAMOTIDINE 20 MG TABLET PO SCH (21:31)
[2021-04-20] MEDS: OLANZapine 10 MG TABLET PO SCH (21:31)
[2021-04-20] MEDS ORDERED: traZODone HCL 50 MG TABLET (FP) PO SCH (22:00)
[2021-04-21] MEDS: MAG HYDROX/AL HYDROX/SIMETH 30 ML UNIT-DOSE CUP PO PRN (01:38)
[2021-04-21] MEDS: PRENATAL VITAMINS W/ FOLIC ACID TABLET (FP) PO SCH (10:01)
[2021-04-21] MEDS: BUDESONIDE/FORMETEROL FUMARATE 160/4.5 mcg INHALER IH SCH ×2 (10:01→21:49)
[2021-04-21] MEDS: NICOTINE 21 MG/24 HOURS TOPICAL PATCH TD SCH (10:02)
[2021-04-21] MEDS: FAMOTIDINE 20 MG TABLET PO SCH ×2 (10:02→21:48)
[2021-04-21] MEDS: TAMSULOSIN HCL 0.4 MG CAP PO SCH (10:02)
[2021-04-21] MEDS: TIMOLOL 0.5% OPHTHALMIC SOL 5 ML BOTTLE OU SCH ×2 (10:03→18:06)
[2021-04-21] MEDS: FLUTICASONE PROP 0.05% 16 GM NASAL SPRAY NS SCH (13:09)
[2021-04-21] MEDS: PSEUDOEPHEDRINE HCL 30 MG TABLET PO PRN (13:10)
[2021-04-21] MEDS: ALBUTEROL SO4 HFA INHALER IH PRN ×2 (13:10→18:37)
[2021-04-21] MEDS: PANTOPRAZOLE 40 MG TABLET PO SCH (13:11)
[2021-04-21] MEDS ORDERED: MASKS NR ONE (19:04)
[2021-04-21] MEDS: ACETAMINOPHEN 325 MG TABLET (FP) PO PRN (19:05)
[2021-04-21] MEDS: METHOCARBAMOL 500 MG TABLET PO PRN (19:07)
[2021-04-21] MEDS: hydrOXYzine PAMOATE 25 MG CAPSULE (FP) PO PRN (21:48)
[2021-04-21] MEDS: THIAMINE HCL 100 MG TABLET (FP) PO SCH (21:48)
[2021-04-21] MEDS: OLANZapine 10 MG TABLET PO SCH (21:48)
[2021-04-21] MEDS: traZODone HCL 100 MG TABLET (FP) PO SCH (21:48)
[2021-04-21] MEDS: LATANOPROST 0.005% OPHTH SOLN 2.5ML BOTTLE OU SCH (21:48)
[2021-04-21] MEDS: MELATONIN 5 MG TABLETS PO SCH (21:49)
[2021-04-22] MEDS: PSEUDOEPHEDRINE HCL 30 MG TABLET PO PRN ×2 (06:30→21:18)
[2021-04-22] MEDS: NICOTINE 21 MG/24 HOURS TOPICAL PATCH TD SCH (09:52)
[2021-04-22] MEDS: PRENATAL VITAMINS W/ FOLIC ACID TABLET (FP) PO SCH (09:52)
[2021-04-22] MEDS: TAMSULOSIN HCL 0.4 MG CAP PO SCH (09:53)
[2021-04-22] MEDS: FLUTICASONE PROP 0.05% 16 GM NASAL SPRAY NS SCH (09:53)
[2021-04-22] MEDS: BUDESONIDE/FORMETEROL FUMARATE 160/4.5 mcg INHALER IH SCH ×2 (09:53→21:15)
[2021-04-22] MEDS: FAMOTIDINE 20 MG TABLET PO SCH ×2 (09:53→21:15)
[2021-04-22] MEDS: TIMOLOL 0.5% OPHTHALMIC SOL 5 ML BOTTLE OU SCH ×2 (09:54→19:25)
[2021-04-22] MEDS: ALBUTEROL SO4 HFA INHALER IH PRN ×2 (09:57→21:16)
[2021-04-22] MEDS: hydrOXYzine PAMOATE 25 MG CAPSULE (FP) PO PRN ×2 (09:57→21:19)
[2021-04-22] MEDS: METHOCARBAMOL 500 MG TABLET PO PRN (09:57)
[2021-04-22] MEDS: traZODone HCL 100 MG TABLET (FP) PO SCH (21:15)
[2021-04-22] MEDS: OLANZapine 10 MG TABLET PO SCH (21:15)
[2021-04-22] MEDS: MELATONIN 5 MG TABLETS PO SCH (21:15)
[2021-04-22] MEDS: THIAMINE HCL 100 MG TABLET (FP) PO SCH (21:15)
[2021-04-22] MEDS ORDERED: PT OWN MED DRAWER 7, Y5N ONE (21:17)
[2021-04-22] MEDS: LATANOPROST 0.005% OPHTH SOLN 2.5ML BOTTLE OU SCH (21:18)
[2021-04-23] MEDS: MAG HYDROX/AL HYDROX/SIMETH 30 ML UNIT-DOSE CUP PO PRN (08:20)
[2021-04-23] MEDS: PRENATAL VITAMINS W/ FOLIC ACID TABLET (FP) PO SCH (09:54)
[2021-04-23] MEDS: BUDESONIDE/FORMETEROL FUMARATE 160/4.5 mcg INHALER IH SCH ×2 (09:54→21:18)
[2021-04-23] MEDS: FLUTICASONE PROP 0.05% 16 GM NASAL SPRAY NS SCH (09:54)
[2021-04-23] MEDS: TIMOLOL 0.5% OPHTHALMIC SOL 5 ML BOTTLE OU SCH ×2 (09:55→18:33)
[2021-04-23] MEDS: TAMSULOSIN HCL 0.4 MG CAP PO SCH (09:55)
[2021-04-23] MEDS: FAMOTIDINE 20 MG TABLET PO SCH ×2 (09:56→21:17)
[2021-04-23] MEDS: ALBUTEROL SO4 HFA INHALER IH PRN (09:56)
[2021-04-23] MEDS: PSEUDOEPHEDRINE HCL 30 MG TABLET PO PRN ×2 (09:57→21:17)
[2021-04-23] MEDS: hydrOXYzine PAMOATE 25 MG CAPSULE (FP) PO PRN ×2 (09:57→21:19)
[2021-04-23] MEDS: METHOCARBAMOL 500 MG TABLET PO PRN ×2 (10:00→21:19)
[2021-04-23] MEDS: ACETAMINOPHEN 325 MG TABLET (FP) PO PRN ×2 (10:00→21:19)
[2021-04-23] MEDS: NICOTINE 21 MG/24 HOURS TOPICAL PATCH TD SCH (10:03)
[2021-04-23] MEDS ORDERED: PT OWN MED DRAWER 7, Y5N ONE (20:58)
[2021-04-23] MEDS: MELATONIN 5 MG TABLETS PO SCH (21:17)
[2021-04-23] MEDS: THIAMINE HCL 100 MG TABLET (FP) PO SCH (21:17)
[2021-04-23] MEDS: OLANZapine 10 MG TABLET PO SCH (21:17)
[2021-04-23] MEDS: traZODone HCL 100 MG TABLET (FP) PO SCH (21:17)
[2021-04-23] MEDS: LATANOPROST 0.005% OPHTH SOLN 2.5ML BOTTLE OU SCH (22:08)
[2021-04-24 07:19] VITALS: PULSE 74
[2021-04-24] MEDS: TAMSULOSIN HCL 0.4 MG CAP PO SCH (07:32)
[2021-04-24] MEDS: PRENATAL VITAMINS W/ FOLIC ACID TABLET (FP) PO SCH (09:44)
[2021-04-24] MEDS: BUDESONIDE/FORMETEROL FUMARATE 160/4.5 mcg INHALER IH SCH ×2 (09:44→21:27)
[2021-04-24] MEDS: FLUTICASONE PROP 0.05% 16 GM NASAL SPRAY NS SCH (09:45)
[2021-04-24] MEDS: ALBUTEROL SO4 HFA INHALER IH PRN (09:45)
[2021-04-24] MEDS: TIMOLOL 0.5% OPHTHALMIC SOL 5 ML BOTTLE OU SCH ×2 (09:46→18:31)
[2021-04-24] MEDS: FAMOTIDINE 20 MG TABLET PO SCH ×2 (09:46→21:28)
[2021-04-24] MEDS: PSEUDOEPHEDRINE HCL 30 MG TABLET PO PRN (09:46)
[2021-04-24] MEDS: METHOCARBAMOL 500 MG TABLET PO PRN ×2 (09:47→21:28)
[2021-04-24] MEDS: hydrOXYzine PAMOATE 25 MG CAPSULE (FP) PO PRN ×2 (09:48→21:28)
[2021-04-24] MEDS: ACETAMINOPHEN 325 MG TABLET (FP) PO PRN (09:48)
[2021-04-24] MEDS: NICOTINE 21 MG/24 HOURS TOPICAL PATCH TD SCH (09:50)
[2021-04-24] MEDS: THIAMINE HCL 100 MG TABLET (FP) PO SCH (21:28)
[2021-04-24] MEDS: MELATONIN 5 MG TABLETS PO SCH (21:28)
[2021-04-24] MEDS: LATANOPROST 0.005% OPHTH SOLN 2.5ML BOTTLE OU SCH (21:28)
[2021-04-24] MEDS: traZODone HCL 100 MG TABLET (FP) PO SCH (21:28)
[2021-04-24] MEDS: OLANZapine 10 MG TABLET PO SCH (21:28)
[2021-04-25] MEDS: PRENATAL VITAMINS W/ FOLIC ACID TABLET (FP) PO SCH (10:20)
[2021-04-25] MEDS: FLUTICASONE PROP 0.05% 16 GM NASAL SPRAY NS SCH (10:21)
[2021-04-25] MEDS: BUDESONIDE/FORMETEROL FUMARATE 160/4.5 mcg INHALER IH SCH ×2 (10:21→21:25)
[2021-04-25] MEDS: TAMSULOSIN HCL 0.4 MG CAP PO SCH (10:22)
[2021-04-25] MEDS: TIMOLOL 0.5% OPHTHALMIC SOL 5 ML BOTTLE OU SCH ×2 (10:23→18:05)
[2021-04-25] MEDS: FAMOTIDINE 20 MG TABLET PO SCH ×2 (10:23→21:25)
[2021-04-25] MEDS: PSEUDOEPHEDRINE HCL 30 MG TABLET PO PRN ×2 (10:23→21:26)
[2021-04-25] MEDS: hydrOXYzine PAMOATE 25 MG CAPSULE (FP) PO PRN ×2 (10:23→21:25)
[2021-04-25] MEDS: NICOTINE 21 MG/24 HOURS TOPICAL PATCH TD SCH (10:24)
[2021-04-25] MEDS: METHOCARBAMOL 500 MG TABLET PO PRN ×2 (10:25→21:25)
[2021-04-25] MEDS: ACETAMINOPHEN 325 MG TABLET (FP) PO PRN ×2 (10:25→21:27)
[2021-04-25] MEDS: LATANOPROST 0.005% OPHTH SOLN 2.5ML BOTTLE OU SCH (21:25)
[2021-04-25] MEDS: OLANZapine 10 MG TABLET PO SCH (21:25)
[2021-04-25] MEDS: ALBUTEROL SO4 HFA INHALER IH PRN (21:26)
[2021-04-25] MEDS: THIAMINE HCL 100 MG TABLET (FP) PO SCH (21:26)
[2021-04-25] MEDS: traZODone HCL 100 MG TABLET (FP) PO SCH (21:26)
[2021-04-25] MEDS: MELATONIN 5 MG TABLETS PO SCH (21:26)
[2021-04-26 06:55] VITALS: BP 158/95; TEMP 97.3
[2021-04-26] MEDS: BUDESONIDE/FORMETEROL FUMARATE 160/4.5 mcg INHALER IH SCH ×2 (10:00→21:18)
[2021-04-26] MEDS: FLUTICASONE PROP 0.05% 16 GM NASAL SPRAY NS SCH (10:00)
[2021-04-26] MEDS: PSEUDOEPHEDRINE HCL 30 MG TABLET PO PRN ×2 (10:01→21:19)
[2021-04-26] MEDS: PRENATAL VITAMINS W/ FOLIC ACID TABLET (FP) PO SCH (10:01)
[2021-04-26] MEDS: FAMOTIDINE 20 MG TABLET PO SCH ×2 (10:01→21:18)
[2021-04-26] MEDS: NICOTINE 21 MG/24 HOURS TOPICAL PATCH TD SCH (10:01)
[2021-04-26] MEDS: TAMSULOSIN HCL 0.4 MG CAP PO SCH (10:01)
[2021-04-26] MEDS: TIMOLOL 0.5% OPHTHALMIC SOL 5 ML BOTTLE OU SCH ×2 (10:02→17:09)
[2021-04-26] MEDS: BACITRACIN 0.9 GM PACKET TP SCH ×2 (10:02→21:20)
[2021-04-26] MEDS: METHOCARBAMOL 500 MG TABLET PO PRN ×2 (10:03→21:18)
[2021-04-26] MEDS: hydrOXYzine PAMOATE 25 MG CAPSULE (FP) PO PRN ×2 (10:03→21:19)
[2021-04-26] MEDS: OLANZapine 10 MG TABLET PO SCH (21:18)
[2021-04-26] MEDS: traZODone HCL 100 MG TABLET (FP) PO SCH (21:18)
[2021-04-26] MEDS: THIAMINE HCL 100 MG TABLET (FP) PO SCH (21:19)
[2021-04-26] MEDS: ALBUTEROL SO4 HFA INHALER IH PRN (21:19)
[2021-04-26] MEDS: MELATONIN 5 MG TABLETS PO SCH (21:19)
[2021-04-26] MEDS: LATANOPROST 0.005% OPHTH SOLN 2.5ML BOTTLE OU SCH (21:37)
[2021-04-27] MEDS: PRENATAL VITAMINS W/ FOLIC ACID TABLET (FP) PO SCH (09:10)
[2021-04-27] MEDS: TAMSULOSIN HCL 0.4 MG CAP PO SCH (09:10)
[2021-04-27] MEDS: BACITRACIN 0.9 GM PACKET TP SCH (09:11)
[2021-04-27] MEDS: METHOCARBAMOL 500 MG TABLET PO PRN (09:12)
[2021-04-27] MEDS: BUDESONIDE/FORMETEROL FUMARATE 160/4.5 mcg INHALER IH SCH (09:13)
[2021-04-27] MEDS ORDERED: PT OWN MED DRAWER 7, Y5N ONE (09:13)
[2021-04-27] MEDS: FLUTICASONE PROP 0.05% 16 GM NASAL SPRAY NS SCH (09:13)
[2021-04-27] MEDS: FAMOTIDINE 20 MG TABLET PO SCH (09:14)
[2021-04-27] MEDS: PSEUDOEPHEDRINE HCL 30 MG TABLET PO PRN (09:14)
[2021-04-27] MEDS: NICOTINE 21 MG/24 HOURS TOPICAL PATCH TD SCH (09:14)
[2021-04-27] MEDS: TIMOLOL 0.5% OPHTHALMIC SOL 5 ML BOTTLE OU SCH (09:15)
[2021-04-28 06:09] LABS: SARS-CoV-2 NAA Not Detected (Not Detected)
== END 2021-04-27 10:15 | disposition home or self-care (01) | DRG 772 ==
LOC: YASAS 15:22 → Y5N 15:23
PROVIDERS: ADMIT Allergy & Immunology; ATTEND Allergy & Immunology
PROC: HZ42ZZZ Group Counseling for Substance Abuse Treatment, Cognitive-Behavioral (ICD-10-PCS; principal; 2021-04-19)
DX: F10.20 Alcohol dependence, uncomplicated (principal); F14.20 Cocaine dependence, uncomplicated; F12.20 Cannabis dependence, uncomplicated; F20.0 Paranoid schizophrenia; F25.9 Schizoaffective disorder, unspecified; F41.8 Other specified anxiety disorders; D64.9 Anemia, unspecified; G47.00 Insomnia, unspecified; H40.10X1 Unspecified open-angle glaucoma, mild stage; J45.909 Unspecified asthma, uncomplicated; J44.9 Chronic obstructive pulmonary disease, unspecified; K21.9 Gastro-esophageal reflux disease without esophagitis; L30.9 Dermatitis, unspecified; M54.2 Cervicalgia; M54.5 Low back pain; G89.29 Other chronic pain; M19.90 Unspecified osteoarthritis, unspecified site; Z99.89 Dependence on other enabling machines and devices; Z98.890 Other specified postprocedural states; Z87.39 Personal history of other diseases of the musculoskeletal system and connective tissue; Z98.49 Cataract extraction status, unspecified eye; Z87.19 Personal history of other diseases of the digestive system; Z88.6 Allergy status to analgesic agent; Z91.018 Allergy to other foods
CPT/HCPCS: 80307; C9803; U0003; U0005

== ENCOUNTER 2021-05-09 19:38 | Inpatient (IN) | payer OTHER ==
[2021-05-09 20:32] VITALS: BMI 28.0
[2021-05-09] MEDS ORDERED: METHOCARBAMOL 500 MG TABLET PO PRN (21:03)
[2021-05-09] MEDS ORDERED: ONDANSETRON *ODT* 4 MG TABLET SL PRN (21:03)
[2021-05-09] MEDS ORDERED: MAGNESIUM HYDROX 2400MG/30ML ORAL SUSPENSION 30 ML CUP PO PRN (21:03)
[2021-05-09] MEDS ORDERED: NICOTINE POLACRILEX 2 MG GUM BUC PRN (21:03)
[2021-05-09] MEDS ORDERED: ACETAMINOPHEN 325 MG TABLET (FP) PO PRN (21:03)
[2021-05-09] MEDS ORDERED: MAGNESIUM CITRATE 300 ML BOTTLE PO PRN (21:03)
[2021-05-09] MEDS ORDERED: MENTHOL/PHENOL 1 EACH UD MM PRN (21:03)
[2021-05-09] MEDS ORDERED: diazePAM 5 MG TABLET PO PRN (21:07)
[2021-05-09] MEDS ORDERED: traZODone HCL 100 MG TABLET (FP) PO ONE ×2 (22:00)
[2021-05-09] MEDS: THIAMINE HCL 100 MG TABLET (FP) PO SCH (22:01)
[2021-05-09] MEDS: diazePAM 5 MG TABLET PO SCH (22:02)
[2021-05-09] MEDS: MELATONIN 5 MG TABLETS PO SCH (22:03)
[2021-05-09] MEDS: BUDESONIDE/FORMETEROL FUMARATE 160/4.5 mcg INHALER IH SCH (22:04)
[2021-05-09] MEDS: LATANOPROST 0.005% OPHTH SOLN 2.5ML BOTTLE OU SCH (22:04)
[2021-05-10] MEDS: LATANOPROST 0.005% OPHTH SOLN 2.5ML BOTTLE OU SCH ×2 (00:16→22:37)
[2021-05-10] MEDS: diazePAM 5 MG TABLET PO SCH ×4 (05:27→22:37)
[2021-05-10] MEDS: MAG HYDROX/AL HYDROX/SIMETH 30 ML UNIT-DOSE CUP PO PRN (07:20)
[2021-05-10] MEDS: TAMSULOSIN HCL 0.4 MG CAP PO SCH (07:49)
[2021-05-10] MEDS: ALBUTEROL SO4 HFA INHALER IH PRN ×2 (10:40→22:50)
[2021-05-10] MEDS: BUDESONIDE/FORMETEROL FUMARATE 160/4.5 mcg INHALER IH SCH ×2 (10:41→22:38)
[2021-05-10] MEDS: PRENATAL VITAMINS W/ FOLIC ACID TABLET (FP) PO SCH (10:41)
[2021-05-10] MEDS: TIMOLOL 0.5% OPHTHALMIC SOL 5 ML BOTTLE OU SCH ×2 (10:42→17:47)
[2021-05-10] MEDS: FAMOTIDINE 20 MG TABLET PO SCH (10:43)
[2021-05-10] MEDS ORDERED: COLLOIDAL OATMEAL 1 BAR EACH TP PRN (15:20)
[2021-05-10] MEDS: traZODone HCL 100 MG TABLET (FP) PO SCH (22:36)
[2021-05-10] MEDS: OLANZapine 10 MG TABLET PO SCH (22:36)
[2021-05-10] MEDS: THIAMINE HCL 100 MG TABLET (FP) PO SCH (22:36)
[2021-05-10] MEDS: MELATONIN 5 MG TABLETS PO SCH (22:50)
[2021-05-11] MEDS: diazePAM 5 MG TABLET PO SCH ×3 (06:44→22:54)
[2021-05-11] MEDS: TAMSULOSIN HCL 0.4 MG CAP PO SCH (07:39)
[2021-05-11] MEDS: TIMOLOL 0.5% OPHTHALMIC SOL 5 ML BOTTLE OU SCH ×2 (10:46→17:54)
[2021-05-11] MEDS: PRENATAL VITAMINS W/ FOLIC ACID TABLET (FP) PO SCH (10:46)
[2021-05-11] MEDS: BUDESONIDE/FORMETEROL FUMARATE 160/4.5 mcg INHALER IH SCH ×2 (10:46→22:56)
[2021-05-11] MEDS: FAMOTIDINE 20 MG TABLET PO SCH (10:46)
[2021-05-11] MEDS: hydrOXYzine PAMOATE 25 MG CAPSULE (FP) PO PRN ×2 (11:14→17:58)
[2021-05-11] MEDS: ACETAMINOPHEN 325 MG TABLET (FP) PO PRN (11:14)
[2021-05-11] MEDS: MAG HYDROX/AL HYDROX/SIMETH 30 ML UNIT-DOSE CUP PO PRN (17:59)
[2021-05-11] MEDS: traZODone HCL 100 MG TABLET (FP) PO SCH (22:53)
[2021-05-11] MEDS: MELATONIN 5 MG TABLETS PO SCH (22:54)
[2021-05-11] MEDS: THIAMINE HCL 100 MG TABLET (FP) PO SCH (22:55)
[2021-05-11] MEDS: OLANZapine 10 MG TABLET PO SCH (22:55)
[2021-05-11] MEDS: LATANOPROST 0.005% OPHTH SOLN 2.5ML BOTTLE OU SCH (22:55)
[2021-05-12] MEDS: diazePAM 5 MG TABLET PO SCH ×2 (06:18→18:15)
[2021-05-12] MEDS: TAMSULOSIN HCL 0.4 MG CAP PO SCH (07:39)
[2021-05-12] MEDS: FAMOTIDINE 20 MG TABLET PO SCH (11:36)
[2021-05-12] MEDS: PRENATAL VITAMINS W/ FOLIC ACID TABLET (FP) PO SCH (11:36)
[2021-05-12] MEDS: BUDESONIDE/FORMETEROL FUMARATE 160/4.5 mcg INHALER IH SCH ×2 (11:37→22:29)
[2021-05-12] MEDS: TIMOLOL 0.5% OPHTHALMIC SOL 5 ML BOTTLE OU SCH ×3 (11:37→17:57)
[2021-05-12] MEDS: hydrOXYzine PAMOATE 25 MG CAPSULE (FP) PO PRN ×2 (11:44→18:39)
[2021-05-12] MEDS: MAG HYDROX/AL HYDROX/SIMETH 30 ML UNIT-DOSE CUP PO PRN (13:39)
[2021-05-12] MEDS: traZODone HCL 100 MG TABLET (FP) PO SCH (22:29)
[2021-05-12] MEDS: OLANZapine 10 MG TABLET PO SCH (22:29)
[2021-05-12] MEDS: THIAMINE HCL 100 MG TABLET (FP) PO SCH (22:29)
[2021-05-12] MEDS: LATANOPROST 0.005% OPHTH SOLN 2.5ML BOTTLE OU SCH (22:29)
[2021-05-12] MEDS: MELATONIN 5 MG TABLETS PO SCH (22:30)
[2021-05-12] MEDS: ACETAMINOPHEN 325 MG TABLET (FP) PO PRN (22:39)
[2021-05-13] MEDS ORDERED: diazePAM 5 MG TABLET PO ONE (06:00)
[2021-05-13] MEDS: TAMSULOSIN HCL 0.4 MG CAP PO SCH (07:29)
[2021-05-13] MEDS: PRENATAL VITAMINS W/ FOLIC ACID TABLET (FP) PO SCH (10:52)
[2021-05-13] MEDS: BUDESONIDE/FORMETEROL FUMARATE 160/4.5 mcg INHALER IH SCH ×2 (10:52→22:57)
[2021-05-13] MEDS: TIMOLOL 0.5% OPHTHALMIC SOL 5 ML BOTTLE OU SCH ×2 (10:52→17:40)
[2021-05-13] MEDS: FAMOTIDINE 10 MG TABLET PO SCH ×2 (10:52→22:56)
[2021-05-13] MEDS: hydrOXYzine PAMOATE 25 MG CAPSULE (FP) PO PRN ×2 (10:52→17:36)
[2021-05-13 11:11] LABS: HEMATOCRIT 34.1 % (35.4-49); MCH 27.6 pg (25.7-33.7); MCHC 32.4 g/dl (32.0-35.9); MEAN CELL VOLUME 85.1 fl (80-96); MEAN PLT VOLUME 9.1 fl (7.5-11.1); PLATELET COUNT 200 10^3/uL (134-434); RBC 4.01 M/mm3 (4.00-5.60); RDW 17.1 % (11.9-15.9)
[2021-05-13 11:21] LABS: BLOOD UREA NITROGEN 12.9 mg/dL (7-18); CALCIUM 8.8 mg/dL (8.5-10.1)
[2021-05-13 11:22] LABS: ALBUMIN 3.2 g/dl (3.4-5.0)
[2021-05-13 11:24] LABS: CREATININE 0.7 mg/dL (0.55-1.3)
[2021-05-13 11:26] LABS: BILIRUBIN,TOTAL 0.4 mg/dL (0.2-1); TOT PROT 6.3 g/dl (6.4-8.2)
[2021-05-13] MEDS: OLANZapine 10 MG TABLET PO SCH (22:56)
[2021-05-13] MEDS: MELATONIN 5 MG TABLETS PO SCH (22:56)
[2021-05-13] MEDS: traZODone HCL 100 MG TABLET (FP) PO SCH (22:56)
[2021-05-13] MEDS: THIAMINE HCL 100 MG TABLET (FP) PO SCH (22:56)
[2021-05-13] MEDS: ALBUTEROL SO4 HFA INHALER IH PRN (22:57)
[2021-05-13] MEDS: LATANOPROST 0.005% OPHTH SOLN 2.5ML BOTTLE OU SCH (22:58)
[2021-05-14] MEDS ORDERED: diazePAM 5 MG TABLET PO ONE (05:00)
[2021-05-14] MEDS: TAMSULOSIN HCL 0.4 MG CAP PO SCH (08:01)
[2021-05-14 09:17] VITALS: BP 138/87; PULSE 84; TEMP 98.9
[2021-05-14] MEDS: BUDESONIDE/FORMETEROL FUMARATE 160/4.5 mcg INHALER IH SCH (11:11)
[2021-05-14] MEDS: FAMOTIDINE 10 MG TABLET PO SCH (11:11)
[2021-05-14] MEDS: TIMOLOL 0.5% OPHTHALMIC SOL 5 ML BOTTLE OU SCH (11:11)
[2021-05-14] MEDS: PRENATAL VITAMINS W/ FOLIC ACID TABLET (FP) PO SCH (11:11)
== END 2021-05-14 11:27 | disposition home or self-care (01) | DRG 774 ==
LOC: YASAS 19:38 → Y3N 21:00 → Y6N 21:05
PROVIDERS: ADMIT Allergy & Immunology; ATTEND Allergy & Immunology
PROC: HZ2ZZZZ Detoxification Services for Substance Abuse Treatment (ICD-10-PCS; principal; 2021-05-09)
DX: F10.230 Alcohol dependence with withdrawal, uncomplicated (principal); F14.20 Cocaine dependence, uncomplicated; F12.20 Cannabis dependence, uncomplicated; F17.210 Nicotine dependence, cigarettes, uncomplicated; F10.220 Alcohol dependence with intoxication, uncomplicated; F10.280 Alcohol dependence with alcohol-induced anxiety disorder; F10.282 Alcohol dependence with alcohol-induced sleep disorder; F20.0 Paranoid schizophrenia; H40.9 Unspecified glaucoma; D64.9 Anemia, unspecified; J44.9 Chronic obstructive pulmonary disease, unspecified; K21.9 Gastro-esophageal reflux disease without esophagitis; N40.0 Benign prostatic hyperplasia without lower urinary tract symptoms; M19.90 Unspecified osteoarthritis, unspecified site; M54.5 Low back pain; G89.29 Other chronic pain; Z99.89 Dependence on other enabling machines and devices; Z88.0 Allergy status to penicillin; Z88.8 Allergy status to other drugs, medicaments and biological substances; Z91.013 Allergy to seafood; Z91.018 Allergy to other foods
CPT/HCPCS: 36415; 80053; 85027; 86780; C9803; U0003; U0005

== ENCOUNTER 2021-06-19 20:16 | Inpatient (IN) | payer OTHER ==
[2021-06-20 01:18] VITALS: BMI 28.0
[2021-06-20] MEDS ORDERED: IBUPROFEN 400 MG TABLET (FP) PO PRN (02:11)
[2021-06-20] MEDS ORDERED: MENTHOL/PHENOL 1 EACH UD MM PRN (02:11)
[2021-06-20] MEDS ORDERED: MAGNESIUM CITRATE 300 ML BOTTLE PO PRN (02:11)
[2021-06-20] MEDS ORDERED: MAGNESIUM HYDROX 2400MG/30ML ORAL SUSPENSION 30 ML CUP PO PRN (02:11)
[2021-06-20] MEDS ORDERED: BISMUTH SUBSALICYLATE 524 MG/30 ML PO PRN (02:11)
[2021-06-20] MEDS ORDERED: MAG HYDROX/AL HYDROX/SIMETH 30 ML UNIT-DOSE CUP PO PRN (02:11)
[2021-06-20] MEDS ORDERED: METHOCARBAMOL 500 MG TABLET PO PRN (02:11)
[2021-06-20] MEDS ORDERED: ACETAMINOPHEN 325 MG TABLET (FP) PO PRN (02:11)
[2021-06-20] MEDS ORDERED: LORazepam 1 MG TABLET PO PRN (02:25)
[2021-06-20] MEDS: LORazepam 2 MG TABLET PO SCH ×4 (07:10→22:25)
[2021-06-20] MEDS ORDERED: ALBUTEROL SO4 HFA INHALER IH PRN (10:34)
[2021-06-20] MEDS: PRENATAL VITAMINS W/ FOLIC ACID TABLET (FP) PO SCH (10:43)
[2021-06-20] MEDS: FAMOTIDINE 20 MG TABLET PO SCH ×2 (10:45→22:26)
[2021-06-20] MEDS: ONDANSETRON *ODT* 4 MG TABLET SL PRN ×2 (10:49→22:26)
[2021-06-20] MEDS: FLUTICASONE PROP 0.05% 16 GM NASAL SPRAY NS SCH (10:54)
[2021-06-20] MEDS: BUDESONIDE/FORMETEROL FUMARATE 160/4.5 mcg INHALER IH SCH ×2 (10:54→22:35)
[2021-06-20] MEDS: TIMOLOL 0.5% OPHTHALMIC SOL 5 ML BOTTLE OU SCH ×2 (10:54→22:27)
[2021-06-20 16:15] LABS: HIV INTERPRETATION NEGATIVE (NEGATIVE)
[2021-06-20] MEDS ORDERED: MELATONIN 5 MG TABLETS PO SCH (22:00)
[2021-06-20] MEDS: traZODone HCL 100 MG TABLET (FP) PO SCH (22:26)
[2021-06-20] MEDS: OLANZapine 10 MG TABLET PO SCH (22:26)
[2021-06-20] MEDS: TAMSULOSIN HCL 0.4 MG CAP PO SCH (22:26)
[2021-06-20] MEDS: THIAMINE HCL 100 MG TABLET (FP) PO SCH (22:35)
[2021-06-20] MEDS: LATANOPROST 0.005% OPHTH SOLN 2.5ML BOTTLE OU SCH (22:37)
[2021-06-21] MEDS: LORazepam 1 MG TABLET PO SCH ×4 (06:19→22:41)
[2021-06-21 10:20] LABS: HEMATOCRIT 35.8 % (35.4-49); HEMOGLOBIN 11.8 GM/dL (11.7-16.9); MCHC 33.1 g/dl (32.0-35.9); MEAN CELL VOLUME 84.7 fl (80-96); MEAN PLT VOLUME 9.9 fl (7.5-11.1); PLATELET COUNT 197 10^3/uL (134-434); RBC 4.23 M/mm3 (4.00-5.60); RDW 19.1 % (11.9-15.9); WHITE BLOOD COUNT 3.7 K/mm3 (4.0-10.0)
[2021-06-21 10:33] LABS: CALCIUM 8.2 mg/dL (8.5-10.1)
[2021-06-21] MEDS: BUDESONIDE/FORMETEROL FUMARATE 160/4.5 mcg INHALER IH SCH ×2 (10:33→22:41)
[2021-06-21 10:34] LABS: ALBUMIN 3.4 g/dl (3.4-5.0); BLOOD UREA NITROGEN 6.7 mg/dL (7-18)
[2021-06-21] MEDS: FAMOTIDINE 20 MG TABLET PO SCH ×2 (10:34→22:41)
[2021-06-21 10:37] LABS: CREATININE 0.8 mg/dL (0.55-1.3)
[2021-06-21] MEDS: TIMOLOL 0.5% OPHTHALMIC SOL 5 ML BOTTLE OU SCH ×2 (10:37→17:42)
[2021-06-21] MEDS: PRENATAL VITAMINS W/ FOLIC ACID TABLET (FP) PO SCH (10:37)
[2021-06-21] MEDS: FLUTICASONE PROP 0.05% 16 GM NASAL SPRAY NS SCH (10:37)
[2021-06-21 10:38] LABS: BILIRUBIN,TOTAL 0.2 mg/dL (0.2-1); TOT PROT 7.1 g/dl (6.4-8.2)
[2021-06-21] MEDS: LATANOPROST 0.005% OPHTH SOLN 2.5ML BOTTLE OU SCH (22:40)
[2021-06-21] MEDS: THIAMINE HCL 100 MG TABLET (FP) PO SCH (22:41)
[2021-06-21] MEDS: traZODone HCL 100 MG TABLET (FP) PO SCH (22:41)
[2021-06-21] MEDS: TAMSULOSIN HCL 0.4 MG CAP PO SCH (22:41)
[2021-06-21] MEDS: OLANZapine 10 MG TABLET PO SCH (22:43)
[2021-06-22] MEDS ORDERED: LORazepam 0.5 MG TABLET PO PRN
[2021-06-22] MEDS: LORazepam 0.5 MG TABLET PO SCH ×4 (06:17→22:23)
[2021-06-22] MEDS: TIMOLOL 0.5% OPHTHALMIC SOL 5 ML BOTTLE OU SCH ×2 (06:18→17:14)
[2021-06-22] MEDS: BUDESONIDE/FORMETEROL FUMARATE 160/4.5 mcg INHALER IH SCH ×2 (10:36→22:23)
[2021-06-22] MEDS: FAMOTIDINE 20 MG TABLET PO SCH ×2 (10:36→22:23)
[2021-06-22] MEDS: FLUTICASONE PROP 0.05% 16 GM NASAL SPRAY NS SCH (10:36)
[2021-06-22] MEDS: PRENATAL VITAMINS W/ FOLIC ACID TABLET (FP) PO SCH (10:36)
[2021-06-22] MEDS: ACETAMINOPHEN 325 MG TABLET (FP) PO PRN ×2 (10:40→17:27)
[2021-06-22] MEDS ORDERED: COLLOIDAL OATMEAL 1 BAR EACH TP PRN (11:41)
[2021-06-22] MEDS: TAMSULOSIN HCL 0.4 MG CAP PO SCH (22:23)
[2021-06-22] MEDS: OLANZapine 10 MG TABLET PO SCH (22:23)
[2021-06-22] MEDS: traZODone HCL 100 MG TABLET (FP) PO SCH (22:23)
[2021-06-22] MEDS: THIAMINE HCL 100 MG TABLET (FP) PO SCH (22:23)
[2021-06-22] MEDS: LATANOPROST 0.005% OPHTH SOLN 2.5ML BOTTLE OU SCH (22:24)
[2021-06-23] MEDS ORDERED: LORazepam 0.5 MG TABLET PO ONE (05:00)
[2021-06-23] MEDS: TIMOLOL 0.5% OPHTHALMIC SOL 5 ML BOTTLE OU SCH (06:12)
[2021-06-23 09:10] VITALS: BP 119/60; PULSE 53; TEMP 98.2
[2021-06-23] MEDS: PRENATAL VITAMINS W/ FOLIC ACID TABLET (FP) PO SCH (10:27)
[2021-06-23] MEDS: FAMOTIDINE 20 MG TABLET PO SCH (10:27)
[2021-06-23] MEDS: BUDESONIDE/FORMETEROL FUMARATE 160/4.5 mcg INHALER IH SCH (10:28)
[2021-06-23] MEDS: FLUTICASONE PROP 0.05% 16 GM NASAL SPRAY NS SCH (10:28)
== END 2021-06-23 11:45 | disposition home or self-care (01) | DRG 774 ==
LOC: YASAS 20:16 → Y6N 06-20 02:03
PROVIDERS: ADMIT Allergy & Immunology; ATTEND Allergy & Immunology
PROC: HZ2ZZZZ Detoxification Services for Substance Abuse Treatment (ICD-10-PCS; principal; 2021-06-20)
DX: F10.230 Alcohol dependence with withdrawal, uncomplicated (principal); F14.20 Cocaine dependence, uncomplicated; F12.20 Cannabis dependence, uncomplicated; F17.210 Nicotine dependence, cigarettes, uncomplicated; F20.0 Paranoid schizophrenia; F10.280 Alcohol dependence with alcohol-induced anxiety disorder; F10.282 Alcohol dependence with alcohol-induced sleep disorder; G40.89 Other seizures; J43.9 Emphysema, unspecified; J45.909 Unspecified asthma, uncomplicated; K21.9 Gastro-esophageal reflux disease without esophagitis; H40.2231 Chronic angle-closure glaucoma, bilateral, mild stage; N40.0 Benign prostatic hyperplasia without lower urinary tract symptoms; R26.2 Difficulty in walking, not elsewhere classified; L30.9 Dermatitis, unspecified; M54.2 Cervicalgia; M54.5 Low back pain; G89.29 Other chronic pain; M19.90 Unspecified osteoarthritis, unspecified site; Z99.89 Dependence on other enabling machines and devices; Z88.0 Allergy status to penicillin; Z88.6 Allergy status to analgesic agent; Z88.8 Allergy status to other drugs, medicaments and biological substances
CPT/HCPCS: 36415; 80053; 85027; 86780; 87389; C9803; Q0162; U0003; U0005

== ENCOUNTER 2021-08-25 20:24 | Inpatient (IN) | payer OTHER ==
[2021-08-25 21:26] VITALS: BMI 25.1
[2021-08-25 21:56] LABS: PH,URINE 6.5 (5.0-8.0); URINE APPEARANCE CLEAR; URINE BILIRUBIN NEGATIVE (NEGATIVE); URINE COLOR YELLOW; URINE GLUCOSE (UA) NEGATIVE (NEGATIVE); URINE KETONE NEGATIVE (NEGATIVE); URINE LEUK ESTERASE NEGATIVE (NEGATIVE); URINE NITRITE NEGATIVE (NEGATIVE); URINE PROTEIN NEGATIVE (NEGATIVE)
[2021-08-25] MEDS ORDERED: SODIUM CHLORIDE 0.9% 500 ML INFUS.BAG IV ONE (22:58)
[2021-08-25 23:15] LABS: BASO % 0.6 % (0-2.0); HEMATOCRIT 36.5 % (35.4-49); HEMOGLOBIN 12.2 GM/dL (11.7-16.9); LYMPH % 16.9 % (8-40); MCH 28.1 pg (25.7-33.7); MCHC 33.4 g/dl (32.0-35.9); MEAN CELL VOLUME 84.3 fl (80-96); MEAN PLT VOLUME 8.4 fl (7.5-11.1); MONO % 4.1 % (3.8-10.2); NEUT % 75.4 % (42.8-82.8); PLATELET COUNT 338 10^3/uL (134-434); RBC 4.33 M/mm3 (4.00-5.60); RDW 16.8 % (11.9-15.9); WHITE BLOOD COUNT 6.5 K/mm3 (4.0-10.0)
[2021-08-25 23:37] LABS: CHLORIDE 103 mmol/L (98-107); SODIUM 143 mmol/L (136-145)
[2021-08-25 23:38] LABS: CALCIUM 8.6 mg/dL (8.5-10.1)
[2021-08-25 23:39] LABS: ALBUMIN 3.7 g/dl (3.4-5.0); ANION GAP 7 MMOL/L (8-16); BLOOD UREA NITROGEN 3.4 mg/dL (7-18); CO2 32 mmol/L (21-32); GLUCOSE,RANDOM 63 mg/dL (74-106); MAGNESIUM 2.2 mg/dL (1.8-2.4)
[2021-08-25 23:42] LABS: CREATININE 0.8 mg/dL (0.55-1.3); SGOT/AST 41 U/L (15-37); SGPT/ALT 24 U/L (13-61)
[2021-08-25 23:44] LABS: BILIRUBIN,TOTAL 0.3 mg/dL (0.2-1); TOT PROT 7.9 g/dl (6.4-8.2)
[2021-08-25 23:45] LABS: ALK PHOS 148 U/L (45-117)
[2021-08-25 23:47] LABS: N-TERMINAL BNP 94.4 pg/ml (5-125)
[2021-08-25 23:50] LABS: INR 0.92 (0.83-1.09); PROTHROMBIN TIME (PATIENT) 11.3 SEC (9.7-13.0)
[2021-08-25 23:52] LABS: ACTIVATED PTT 33.7 SECONDS (25.2-36.5)
[2021-08-25 23:52] LABS: LACTIC ACID 3.1 mmol/L (0.4-2.0)
[2021-08-26] MEDS ORDERED: CLINDAMYCIN 600MG PREMIX IVPB 600 MG/50 ML BAG IVPB ONE ×2 (04:41→05:34)
[2021-08-26] MEDS ORDERED: FAMOTIDINE 20 MG/50 ML IVPB 20 MG/50 ML MG IVPB ONE ×2 (05:32→05:34)
[2021-08-26] MEDS ORDERED: LORazepam 1 MG TABLET ONE ×2 (05:59→10:43)
[2021-08-26] MEDS ORDERED: LORazepam 2 MG TABLET PO ONE (05:59)
[2021-08-26] MEDS ORDERED: LORazepam 1 MG TABLET PO PRN (08:19)
[2021-08-26] MEDS ORDERED: FOLIC ACID INJECTION - 1 MG, THIAMINE HCL 100 MG, MULTIVIT INJECTION ADULT 10 ML in SOD... IVPB ONE (08:19)
[2021-08-26] MEDS ORDERED: PANTOPRAZOLE 40 MG TABLET ONE (10:42)
[2021-08-26] MEDS: PANTOPRAZOLE 40 MG TABLET PO SCH (10:51)
[2021-08-26] MEDS: LORazepam 2 MG TABLET PO SCH (10:51)
[2021-08-26] MEDS: ENOXAPARIN NA (PORCINE) 40 MG/0.4 ML DISP.SYRIN SQ SCH (13:15)
[2021-08-26] MEDS ORDERED: FLU VACC QS2021-22(6MOS UP)/PF 60 MCG/0.5 ML SYRINGE IM ONE (17:10)
[2021-08-26] MEDS: LORazepam 1 MG TABLET PO SCH ×2 (18:03→22:51)
[2021-08-26] MEDS ORDERED: ACETAMINOPHEN 1000 MG/100 ML VIAL (NON FORMULARY) IVPB ONE (18:12)
[2021-08-27] MEDS: LORazepam 1 MG TABLET PO SCH ×4 (04:56→22:13)
[2021-08-27] MEDS ORDERED: ACETAMINOPHEN 325 MG TABLET (FP) PO ONE ×2 (05:12→22:47)
[2021-08-27] MEDS: MULTIVITAMINS (DAILY MVI) TABLET (FP) PO SCH (09:37)
[2021-08-27] MEDS: THIAMINE HCL 200 MG/2 ML VIAL IVPB SCH (09:38)
[2021-08-27] MEDS: FOLIC ACID 1 MG TABLET (FP) PO SCH (09:38)
[2021-08-27] MEDS: PANTOPRAZOLE 40 MG TABLET PO SCH (09:38)
[2021-08-27] MEDS: ENOXAPARIN NA (PORCINE) 40 MG/0.4 ML DISP.SYRIN SQ SCH (09:38)
[2021-08-27] MEDS ORDERED: ACETAMINOPHEN 1000 MG/100 ML VIAL (NON FORMULARY) IVPB ONE (09:43)
[2021-08-27] MEDS ORDERED: ceFAZolin SODIUM 1 GM VIAL ONE ×2 (09:58→17:10)
[2021-08-27] MEDS ORDERED: DEXTROSE 5%-WATER - 50 ML IVPB ONE ×2 (09:58→17:10)
[2021-08-27] MEDS: CEFAZOLIN 1 GM in DEXTROSE 5%-WATER - 50 ML IVPB SCH ×2 (10:14→17:14)
[2021-08-27 10:40] LABS: HEMATOCRIT 33.4 % (35.4-49); HEMOGLOBIN 11.2 GM/dL (11.7-16.9); MCH 28.5 pg (25.7-33.7); MCHC 33.5 g/dl (32.0-35.9); MEAN PLT VOLUME 8.7 fl (7.5-11.1); PLATELET COUNT 256 10^3/uL (134-434); RBC 3.93 M/mm3 (4.00-5.60); RDW 16.8 % (11.9-15.9); WHITE BLOOD COUNT 5.1 K/mm3 (4.0-10.0)
[2021-08-27 11:04] LABS: CALCIUM 8.6 mg/dL (8.5-10.1)
[2021-08-27 11:05] LABS: BLOOD UREA NITROGEN 6.3 mg/dL (7-18); MAGNESIUM 1.7 mg/dL (1.8-2.4)
[2021-08-27 11:08] LABS: CREATININE 0.8 mg/dL (0.55-1.3); PHOSPHOROUS 3.3 mg/dL (2.5-4.9)
[2021-08-27 11:09] LABS: BILIRUBIN,TOTAL 0.8 mg/dL (0.2-1); TOT PROT 6.6 g/dl (6.4-8.2)
[2021-08-27] MEDS: traZODone HCL 100 MG TABLET (FP) PO SCH (21:31)
[2021-08-28] MEDS ORDERED: ceFAZolin SODIUM 1 GM VIAL ONE ×3 (00:51→16:55)
[2021-08-28] MEDS ORDERED: DEXTROSE 5%-WATER - 50 ML IVPB ONE ×3 (00:52→16:55)
[2021-08-28] MEDS: CEFAZOLIN 1 GM in DEXTROSE 5%-WATER - 50 ML IVPB SCH ×3 (02:47→18:12)
[2021-08-28] MEDS ORDERED: ACETAMINOPHEN 325 MG TABLET (FP) PO ONE (04:30)
[2021-08-28] MEDS: LORazepam 1 MG TABLET PO SCH ×4 (05:11→21:59)
[2021-08-28 09:43] LABS: BASO % 0.4 % (0-2.0); HEMATOCRIT 33.5 % (35.4-49); HEMOGLOBIN 11.3 GM/dL (11.7-16.9); LYMPH % 17.7 % (8-40); MCH 28.6 pg (25.7-33.7); MCHC 33.7 g/dl (32.0-35.9); MEAN CELL VOLUME 85.1 fl (80-96); MEAN PLT VOLUME 8.6 fl (7.5-11.1); MONO % 6.6 % (3.8-10.2); NEUT % 71.3 % (42.8-82.8); PLATELET COUNT 246 10^3/uL (134-434); RBC 3.94 M/mm3 (4.00-5.60); RDW 16.4 % (11.9-15.9); WHITE BLOOD COUNT 5.6 K/mm3 (4.0-10.0)
[2021-08-28 10:03] LABS: BLOOD UREA NITROGEN 8.2 mg/dL (7-18); CALCIUM 8.6 mg/dL (8.5-10.1)
[2021-08-28 10:04] LABS: MAGNESIUM 1.7 mg/dL (1.8-2.4)
[2021-08-28 10:07] LABS: CREATININE 0.9 mg/dL (0.55-1.3)
[2021-08-28] MEDS: PANTOPRAZOLE 40 MG TABLET PO SCH (10:14)
[2021-08-28] MEDS: FOLIC ACID 1 MG TABLET (FP) PO SCH (10:14)
[2021-08-28] MEDS: THIAMINE HCL 200 MG/2 ML VIAL IVPB SCH (10:14)
[2021-08-28] MEDS: ENOXAPARIN NA (PORCINE) 40 MG/0.4 ML DISP.SYRIN SQ SCH (10:14)
[2021-08-28] MEDS: MULTIVITAMINS (DAILY MVI) TABLET (FP) PO SCH (10:14)
[2021-08-28] MEDS ORDERED: MAGNESIUM OXIDE 400 MG TABLET (FP) PO ONE (10:27)
[2021-08-28] MEDS: ACETAMINOPHEN 1000 MG/100 ML VIAL (NON FORMULARY) IVPB PRN (13:16)
[2021-08-28] MEDS: traMADol HCL 50 MG TABLET PO PRN (16:34)
[2021-08-28] MEDS: traZODone HCL 100 MG TABLET (FP) PO SCH (21:46)
[2021-08-28] MEDS: NYSTATIN 100,000 UNIT/GM TOPICAL CREAM 15 GM TUBE TP SCH (22:00)
[2021-08-28] MEDS ORDERED: PT OWN MED DRAWER 7, Y5N ONE (22:02)
[2021-08-29] MEDS ORDERED: LORazepam 0.5 MG TABLET PO PRN
[2021-08-29] MEDS ORDERED: ceFAZolin SODIUM 1 GM VIAL ONE ×3 (01:09→17:28)
[2021-08-29] MEDS: CEFAZOLIN 1 GM in DEXTROSE 5%-WATER - 50 ML IVPB SCH ×3 (01:16→18:23)
[2021-08-29] MEDS: LORazepam 0.5 MG TABLET PO SCH ×4 (04:32→22:16)
[2021-08-29] MEDS: LORazepam 2 MG TABLET PO SCH (07:30)
[2021-08-29] MEDS: ACETAMINOPHEN 1000 MG/100 ML VIAL (NON FORMULARY) IVPB PRN (08:22)
[2021-08-29] MEDS ORDERED: DEXTROSE 5%-WATER - 50 ML IVPB ONE ×2 (09:03→17:28)
[2021-08-29] MEDS: NYSTATIN 100,000 UNIT/GM TOPICAL CREAM 15 GM TUBE TP SCH ×2 (09:05→21:29)
[2021-08-29] MEDS: ENOXAPARIN NA (PORCINE) 40 MG/0.4 ML DISP.SYRIN SQ SCH (09:05)
[2021-08-29] MEDS: MULTIVITAMINS (DAILY MVI) TABLET (FP) PO SCH (09:05)
[2021-08-29] MEDS: PANTOPRAZOLE 40 MG TABLET PO SCH (09:05)
[2021-08-29] MEDS: FOLIC ACID 1 MG TABLET (FP) PO SCH (09:05)
[2021-08-29 09:44] LABS: HEMOGLOBIN 10.9 GM/dL (11.7-16.9)
[2021-08-29 09:59] LABS: HEMATOCRIT 32.4 % (35.4-49); MCH 28.6 pg (25.7-33.7); MCHC 33.5 g/dl (32.0-35.9); MEAN CELL VOLUME 85.4 fl (80-96); MEAN PLT VOLUME 9.1 fl (7.5-11.1); PLATELET COUNT 242 10^3/uL (134-434); RDW 16.6 % (11.9-15.9); WHITE BLOOD COUNT 5.3 K/mm3 (4.0-10.0)
[2021-08-29 10:06] LABS: CALCIUM 8.3 mg/dL (8.5-10.1); CO2 28 mmol/L (21-32); GLUCOSE,RANDOM 76 mg/dL (74-106); MAGNESIUM 1.7 mg/dL (1.8-2.4)
[2021-08-29 10:08] LABS: CREATININE 0.7 mg/dL (0.55-1.3)
[2021-08-29 10:09] LABS: PHOSPHOROUS 3.4 mg/dL (2.5-4.9); SGOT/AST 13 U/L (15-37); SGPT/ALT 13 U/L (13-61)
[2021-08-29 10:10] LABS: BILIRUBIN,TOTAL 0.4 mg/dL (0.2-1); TOT PROT 6.5 g/dl (6.4-8.2)
[2021-08-29 10:11] LABS: ALK PHOS 106 U/L (45-117)
[2021-08-29] MEDS: THIAMINE HCL 200 MG/2 ML VIAL IVPB SCH (10:47)
[2021-08-29 11:35] LABS: SODIUM 141 mmol/L (136-145)
[2021-08-29 11:36] LABS: CHLORIDE 106 mmol/L (98-107)
[2021-08-29] MEDS: traMADol HCL 50 MG TABLET PO PRN (14:36)
[2021-08-29] MEDS: FLUTICASONE PROP 0.05% 16 GM NASAL SPRAY NS SCH (18:22)
[2021-08-29] MEDS ORDERED: ENOXAPARIN NA (PORCINE) 80 MG/0.8 ML DISP.SYRIN SQ ONE (18:45)
[2021-08-29] MEDS: traZODone HCL 100 MG TABLET (FP) PO SCH (21:29)
[2021-08-29] MEDS: TIMOLOL 0.5% OPHTHALMIC SOL 5 ML BOTTLE OU SCH (21:32)
[2021-08-29] MEDS: LATANOPROST 0.005% OPHTH SOLN 2.5ML BOTTLE OU SCH (21:32)
[2021-08-30] MEDS ORDERED: ceFAZolin SODIUM 1 GM VIAL ONE ×3 (01:14→18:01)
[2021-08-30] MEDS ORDERED: DEXTROSE 5%-WATER - 50 ML IVPB ONE ×3 (01:14→18:01)
[2021-08-30] MEDS: CEFAZOLIN 1 GM in DEXTROSE 5%-WATER - 50 ML IVPB SCH ×3 (01:16→18:06)
[2021-08-30] MEDS ORDERED: LORazepam 0.5 MG TABLET PO ONE ×2 (05:00→12:00)
[2021-08-30 08:26] LABS: BASO % 0.4 % (0-2.0); EOS % 4.7 % (0-4.5); HEMATOCRIT 32.4 % (35.4-49); HEMOGLOBIN 10.9 GM/dL (11.7-16.9); LYMPH % 22.6 % (8-40); MCH 28.7 pg (25.7-33.7); MCHC 33.8 g/dl (32.0-35.9); MEAN CELL VOLUME 84.9 fl (80-96); MEAN PLT VOLUME 9.2 fl (7.5-11.1); MONO % 7.4 % (3.8-10.2); NEUT % 64.9 % (42.8-82.8); PLATELET COUNT 261 10^3/uL (134-434); RBC 3.82 M/mm3 (4.00-5.60); RDW 16.2 % (11.9-15.9); WHITE BLOOD COUNT 4.9 K/mm3 (4.0-10.0)
[2021-08-30 08:44] LABS: ALBUMIN 2.9 g/dl (3.4-5.0); BLOOD UREA NITROGEN 8.9 mg/dL (7-18); CALCIUM 8.3 mg/dL (8.5-10.1)
[2021-08-30 08:45] LABS: MAGNESIUM 1.9 mg/dL (1.8-2.4)
[2021-08-30 08:48] LABS: CREATININE 0.7 mg/dL (0.55-1.3)
[2021-08-30 08:49] LABS: BILIRUBIN,TOTAL 0.4 mg/dL (0.2-1); TOT PROT 6.4 g/dl (6.4-8.2)
[2021-08-30] MEDS ORDERED: PROCHLORPERAZINE INJECTION 10 MG/2 ML VIAL IVPB ONE (09:15)
[2021-08-30] MEDS ORDERED: PT OWN MED DRAWER 7, Y5N ONE (09:43)
[2021-08-30] MEDS: FOLIC ACID 1 MG TABLET (FP) PO SCH (10:21)
[2021-08-30] MEDS: PANTOPRAZOLE 40 MG TABLET PO SCH (10:21)
[2021-08-30] MEDS: MULTIVITAMINS (DAILY MVI) TABLET (FP) PO SCH (10:21)
[2021-08-30] MEDS: FLUTICASONE PROP 0.05% 16 GM NASAL SPRAY NS SCH (10:25)
[2021-08-30] MEDS: THIAMINE HCL 200 MG/2 ML VIAL IVPB SCH (10:26)
[2021-08-30] MEDS: NYSTATIN 100,000 UNIT/GM TOPICAL CREAM 15 GM TUBE TP SCH ×2 (10:26→21:45)
[2021-08-30] MEDS: TIMOLOL 0.5% OPHTHALMIC SOL 5 ML BOTTLE OU SCH ×2 (10:26→21:45)
[2021-08-30] MEDS: ENOXAPARIN NA (PORCINE) 80 MG/0.8 ML DISP.SYRIN SQ SCH ×2 (12:27→21:45)
[2021-08-30] MEDS: traZODone HCL 100 MG TABLET (FP) PO SCH (21:45)
[2021-08-30] MEDS: LATANOPROST 0.005% OPHTH SOLN 2.5ML BOTTLE OU SCH (21:46)
[2021-08-31] MEDS ORDERED: DEXTROSE 5%-WATER - 50 ML IVPB ONE ×3 (01:36→17:19)
[2021-08-31] MEDS ORDERED: ceFAZolin SODIUM 1 GM VIAL ONE ×3 (01:36→17:18)
[2021-08-31] MEDS: CEFAZOLIN 1 GM in DEXTROSE 5%-WATER - 50 ML IVPB SCH ×3 (01:40→17:49)
[2021-08-31] MEDS: FLUTICASONE PROP 0.05% 16 GM NASAL SPRAY NS SCH (10:37)
[2021-08-31] MEDS: ENOXAPARIN NA (PORCINE) 80 MG/0.8 ML DISP.SYRIN SQ SCH ×2 (10:38→22:09)
[2021-08-31] MEDS: FOLIC ACID 1 MG TABLET (FP) PO SCH (10:38)
[2021-08-31] MEDS: NYSTATIN 100,000 UNIT/GM TOPICAL CREAM 15 GM TUBE TP SCH ×2 (10:38→22:09)
[2021-08-31] MEDS: THIAMINE HCL 100 MG TABLET (FP) PO SCH ×2 (10:39→22:08)
[2021-08-31] MEDS: PANTOPRAZOLE 40 MG TABLET PO SCH (10:39)
[2021-08-31] MEDS: MULTIVITAMINS (DAILY MVI) TABLET (FP) PO SCH (10:39)
[2021-08-31] MEDS: TIMOLOL 0.5% OPHTHALMIC SOL 5 ML BOTTLE OU SCH ×2 (10:40→21:07)
[2021-08-31] MEDS: traMADol HCL 50 MG TABLET PO PRN (10:40)
[2021-08-31] MEDS: BUDESONIDE/FORMETEROL FUMARATE 80/4.5 mcg INHALER IH SCH ×2 (10:50→22:08)
[2021-08-31 12:42] LABS: BASO % 0.5 % (0-2.0); EOS % 5.2 % (0-4.5); HEMATOCRIT 33.9 % (35.4-49); HEMOGLOBIN 11.4 GM/dL (11.7-16.9); LYMPH % 19.7 % (8-40); MCH 28.5 pg (25.7-33.7); MCHC 33.5 g/dl (32.0-35.9); MEAN PLT VOLUME 9.1 fl (7.5-11.1); MONO % 10.1 % (3.8-10.2); NEUT % 64.5 % (42.8-82.8); PLATELET COUNT 230 10^3/uL (134-434); RBC 3.99 M/mm3 (4.00-5.60); RDW 16.7 % (11.9-15.9); WHITE BLOOD COUNT 4.3 K/mm3 (4.0-10.0)
[2021-08-31 13:05] LABS: CALCIUM 8.9 mg/dL (8.5-10.1)
[2021-08-31 13:06] LABS: ALBUMIN 3.3 g/dl (3.4-5.0); MAGNESIUM 1.9 mg/dL (1.8-2.4)
[2021-08-31 13:08] LABS: PHOSPHOROUS 3.5 mg/dL (2.5-4.9)
[2021-08-31 13:09] LABS: CREATININE 0.8 mg/dL (0.55-1.3)
[2021-08-31 13:10] LABS: BILIRUBIN,TOTAL 0.4 mg/dL (0.2-1)
[2021-08-31] MEDS ORDERED: diphenhydrAMINE HCL 25 MG CAPSULE (FP) PO ONE (14:00)
[2021-08-31] MEDS ORDERED: PT OWN MED DRAWER 7, Y5N ONE (14:01)
[2021-08-31] MEDS ORDERED: ACETAMINOPHEN 1000 MG/100 ML VIAL (NON FORMULARY) IVPB PRN (16:10)
[2021-08-31] MEDS: traZODone HCL 100 MG TABLET (FP) PO SCH (22:08)
[2021-08-31] MEDS: LATANOPROST 0.005% OPHTH SOLN 2.5ML BOTTLE OU SCH (23:08)
[2021-09-01] MEDS ORDERED: ceFAZolin SODIUM 1 GM VIAL ONE ×3 (02:47→18:18)
[2021-09-01] MEDS ORDERED: DEXTROSE 5%-WATER - 50 ML IVPB ONE ×3 (02:47→18:18)
[2021-09-01] MEDS: CEFAZOLIN 1 GM in DEXTROSE 5%-WATER - 50 ML IVPB SCH ×3 (02:53→18:20)
[2021-09-01 08:14] LABS: CALCIUM 8.5 mg/dL (8.5-10.1)
[2021-09-01 08:15] LABS: MAGNESIUM 1.8 mg/dL (1.8-2.4)
[2021-09-01 08:18] LABS: CREATININE 0.8 mg/dL (0.55-1.3); PHOSPHOROUS 3.2 mg/dL (2.5-4.9)
[2021-09-01 08:19] LABS: BILIRUBIN,TOTAL 0.5 mg/dL (0.2-1); TOT PROT 6.5 g/dl (6.4-8.2)
[2021-09-01 09:27] LABS: BASO % 0.8 % (0-2.0); EOS % 4.4 % (0-4.5); HEMATOCRIT 30.4 % (35.4-49); HEMOGLOBIN 10.2 GM/dL (11.7-16.9); LYMPH % 25.3 % (8-40); MCH 28.6 pg (25.7-33.7); MCHC 33.6 g/dl (32.0-35.9); MEAN CELL VOLUME 85.1 fl (80-96); MEAN PLT VOLUME 9.4 fl (7.5-11.1); MONO % 11.6 % (3.8-10.2); NEUT % 57.9 % (42.8-82.8); PLATELET COUNT 198 10^3/uL (134-434); RBC 3.58 M/mm3 (4.00-5.60); RDW 16.9 % (11.9-15.9); WHITE BLOOD COUNT 4.5 K/mm3 (4.0-10.0)
[2021-09-01] MEDS ORDERED: TIMOLOL 0.5% OPHTHALMIC SOL 5 ML BOTTLE OU SCH (09:37)
[2021-09-01 09:50] LABS: PLATELET ESTIMATE ADEQUATE
[2021-09-01] MEDS: FOLIC ACID 1 MG TABLET (FP) PO SCH (10:07)
[2021-09-01] MEDS: FLUTICASONE PROP 0.05% 16 GM NASAL SPRAY NS SCH (10:07)
[2021-09-01] MEDS: NYSTATIN 100,000 UNIT/GM TOPICAL CREAM 15 GM TUBE TP SCH ×2 (10:08→21:24)
[2021-09-01] MEDS: ENOXAPARIN NA (PORCINE) 80 MG/0.8 ML DISP.SYRIN SQ SCH ×2 (10:08→21:19)
[2021-09-01] MEDS: MULTIVITAMINS (DAILY MVI) TABLET (FP) PO SCH (10:09)
[2021-09-01] MEDS: BUDESONIDE/FORMETEROL FUMARATE 80/4.5 mcg INHALER IH SCH ×2 (10:09→21:24)
[2021-09-01] MEDS: PANTOPRAZOLE 40 MG TABLET PO SCH (10:09)
[2021-09-01] MEDS: THIAMINE HCL 100 MG TABLET (FP) PO SCH ×2 (10:10→21:19)
[2021-09-01] MEDS ORDERED: LORazepam 1 MG TABLET PO ONE ×3 (10:51→20:44)
[2021-09-01] MEDS: traMADol HCL 50 MG TABLET PO PRN (12:57)
[2021-09-01] MEDS: TIMOLOL 0.5% OPHTHALMIC SOL 5 ML BOTTLE OU SCH ×2 (18:21→22:24)
[2021-09-01] MEDS: traZODone HCL 100 MG TABLET (FP) PO SCH (21:19)
[2021-09-01] MEDS: LATANOPROST 0.005% OPHTH SOLN 2.5ML BOTTLE OU SCH (22:24)
[2021-09-02] MEDS ORDERED: ceFAZolin SODIUM 1 GM VIAL ONE ×2 (01:00→09:39)
[2021-09-02] MEDS ORDERED: DEXTROSE 5%-WATER - 50 ML IVPB ONE ×2 (01:01→09:39)
[2021-09-02] MEDS: CEFAZOLIN 1 GM in DEXTROSE 5%-WATER - 50 ML IVPB SCH ×2 (01:11→09:40)
[2021-09-02 08:52] LABS: BASO % 0.8 % (0-2.0); EOS % 4.9 % (0-4.5); HEMATOCRIT 32.6 % (35.4-49); LYMPH % 28.7 % (8-40); MCH 28.8 pg (25.7-33.7); MCHC 33.6 g/dl (32.0-35.9); MEAN CELL VOLUME 85.8 fl (80-96); MEAN PLT VOLUME 9.4 fl (7.5-11.1); MONO % 13.6 % (3.8-10.2); PLATELET COUNT 201 10^3/uL (134-434); RBC 3.81 M/mm3 (4.00-5.60); RDW 16.9 % (11.9-15.9); WHITE BLOOD COUNT 3.9 K/mm3 (4.0-10.0)
[2021-09-02 09:17] LABS: CALCIUM 8.4 mg/dL (8.5-10.1)
[2021-09-02 09:20] LABS: ALBUMIN 3.1 g/dl (3.4-5.0)
[2021-09-02 09:21] LABS: CREATININE 0.8 mg/dL (0.55-1.3); PHOSPHOROUS 3.4 mg/dL (2.5-4.9)
[2021-09-02 09:22] LABS: BILIRUBIN,TOTAL 0.4 mg/dL (0.2-1); TOT PROT 6.6 g/dl (6.4-8.2)
[2021-09-02] MEDS: ENOXAPARIN NA (PORCINE) 80 MG/0.8 ML DISP.SYRIN SQ SCH ×2 (09:40→22:01)
[2021-09-02] MEDS: FOLIC ACID 1 MG TABLET (FP) PO SCH (09:40)
[2021-09-02] MEDS: MULTIVITAMINS (DAILY MVI) TABLET (FP) PO SCH (09:40)
[2021-09-02] MEDS: PANTOPRAZOLE 40 MG TABLET PO SCH (09:40)
[2021-09-02] MEDS: THIAMINE HCL 100 MG TABLET (FP) PO SCH ×2 (09:40→22:00)
[2021-09-02] MEDS: BUDESONIDE/FORMETEROL FUMARATE 80/4.5 mcg INHALER IH SCH ×2 (09:48→22:01)
[2021-09-02] MEDS: TIMOLOL 0.5% OPHTHALMIC SOL 5 ML BOTTLE OU SCH ×2 (09:48→22:11)
[2021-09-02] MEDS: NYSTATIN 100,000 UNIT/GM TOPICAL CREAM 15 GM TUBE TP SCH ×2 (09:48→22:00)
[2021-09-02] MEDS: FLUTICASONE PROP 0.05% 16 GM NASAL SPRAY NS SCH (09:48)
[2021-09-02] MEDS: CEPHALEXIN MONOHYDRATE 500 MG CAPSULE (UD) PO SCH ×2 (16:55→22:00)
[2021-09-02] MEDS ORDERED: CEPHALEXIN MONOHYDRATE 500 MG CAPSULE (UD) PO SCH (22:00)
[2021-09-02] MEDS: traZODone HCL 100 MG TABLET (FP) PO SCH (22:00)
[2021-09-02] MEDS: LATANOPROST 0.005% OPHTH SOLN 2.5ML BOTTLE OU SCH (22:01)
[2021-09-03] MEDS: CEPHALEXIN MONOHYDRATE 500 MG CAPSULE (UD) PO SCH ×2 (04:44→11:07)
[2021-09-03 05:08] VITALS: BP 131/71; PULSE 72; TEMP 98
[2021-09-03] MEDS ORDERED: APIXABAN 5 MG TABLET PO SCH (10:00)
[2021-09-03] MEDS: FOLIC ACID 1 MG TABLET (FP) PO SCH (11:07)
[2021-09-03] MEDS: FLUTICASONE PROP 0.05% 16 GM NASAL SPRAY NS SCH (11:07)
[2021-09-03] MEDS: NYSTATIN 100,000 UNIT/GM TOPICAL CREAM 15 GM TUBE TP SCH (11:08)
[2021-09-03] MEDS: PANTOPRAZOLE 40 MG TABLET PO SCH (11:08)
[2021-09-03] MEDS: BUDESONIDE/FORMETEROL FUMARATE 80/4.5 mcg INHALER IH SCH (11:09)
[2021-09-03] MEDS: MULTIVITAMINS (DAILY MVI) TABLET (FP) PO SCH (11:09)
[2021-09-03] MEDS: TIMOLOL 0.5% OPHTHALMIC SOL 5 ML BOTTLE OU SCH (11:09)
[2021-09-03] MEDS: THIAMINE HCL 100 MG TABLET (FP) PO SCH (11:10)
== END 2021-09-03 12:05 | disposition home or self-care (01) | DRG 383 ==
LOC: JER 20:24 → JERBED 08-26 06:19 → J6S 08-26 14:56
PROVIDERS: ADMIT Internal Medicine; ATTEND Internal Medicine
PROC: 05HB33Z Insertion of Infusion Device into Right Basilic Vein, Percutaneous Approach (ICD-10-PCS; principal; 2021-08-27)
DX: L03.115 Cellulitis of right lower limb (principal); B49 Unspecified mycosis; I82.622 Acute embolism and thrombosis of deep veins of left upper extremity; E87.2 Acidosis; L03.116 Cellulitis of left lower limb; R56.9 Unspecified convulsions; F10.239 Alcohol dependence with withdrawal, unspecified; F17.210 Nicotine dependence, cigarettes, uncomplicated; K21.9 Gastro-esophageal reflux disease without esophagitis; M79.604 Pain in right leg; M79.605 Pain in left leg; R59.9 Enlarged lymph nodes, unspecified; R60.0 Localized edema; B35.3 Tinea pedis
CPT/HCPCS: 36415; 70450-TC; 71260-TC; 72125-TC; 73590-TC-LT-FY; 73590-TC-RT-FY; 74177-TC; 76882-TC-RT-FY; 80048; 80053; 81003; 82550; 82553; 82962; 83605; 83735; 83880; 84100; 84484; 85025; 85027; 85610; 85730; 86850; 86900; 86901; 87040; 87086; 93005; 93010; 93970-TC; 93971; 97116-GP; 97161-GP; 99285-25; C9803; J0131; U0003; U0005

== ENCOUNTER 2021-09-29 19:28 | Inpatient (IN) | payer OTHER ==
[2021-09-29 22:16] VITALS: BMI 26.9
[2021-09-29] MEDS ORDERED: ALBUTEROL SO4 HFA INHALER IH PRN (22:32)
[2021-09-29] MEDS ORDERED: MAGNESIUM HYDROX 2400MG/30ML ORAL SUSPENSION 30 ML CUP PO PRN (22:33)
[2021-09-29] MEDS ORDERED: MENTHOL/PHENOL 1 EACH UD MM PRN (22:33)
[2021-09-29] MEDS ORDERED: MAG HYDROX/AL HYDROX/SIMETH 30 ML UNIT-DOSE CUP PO PRN (22:33)
[2021-09-29] MEDS ORDERED: LOPERAMIDE HCL 2 MG CAPSULE PO PRN (22:33)
[2021-09-29] MEDS ORDERED: MAGNESIUM CITRATE 300 ML BOTTLE PO PRN (22:33)
[2021-09-29] MEDS ORDERED: ACETAMINOPHEN 325 MG TABLET (FP) PO PRN ×2 (22:33)
[2021-09-29] MEDS ORDERED: DICYCLOMINE HCL 10 MG CAPSULE PO PRN (22:33)
[2021-09-30] MEDS: APIXABAN 5 MG TABLET PO SCH ×3 (00:01→23:24)
[2021-09-30] MEDS: BUDESONIDE/FORMETEROL FUMARATE 80/4.5 mcg INHALER IH SCH ×3 (00:01→23:24)
[2021-09-30] MEDS: diazePAM 5 MG TABLET PO SCH ×4 (06:28→23:25)
[2021-09-30] MEDS: ONDANSETRON *ODT* 4 MG TABLET SL PRN ×2 (06:34→18:28)
[2021-09-30] MEDS: hydrOXYzine PAMOATE 25 MG CAPSULE (FP) PO PRN ×2 (10:51→18:30)
[2021-09-30] MEDS: PRENATAL VITAMINS W/ FOLIC ACID TABLET (FP) PO SCH (10:51)
[2021-09-30] MEDS: MELATONIN 5 MG TABLETS PO SCH (23:24)
[2021-09-30] MEDS: TAMSULOSIN HCL 0.4 MG CAP PO SCH (23:24)
[2021-09-30] MEDS: THIAMINE HCL 100 MG TABLET (FP) PO SCH (23:24)
[2021-09-30] MEDS: LATANOPROST 0.005% OPHTH SOLN 2.5ML BOTTLE OU SCH (23:25)
[2021-10-01] MEDS: diazePAM 5 MG TABLET PO SCH ×3 (06:05→22:52)
[2021-10-01 10:49] LABS: HEMATOCRIT 36.1 % (35.4-49); HEMOGLOBIN 12.1 GM/dL (11.7-16.9); MCH 28.6 pg (25.7-33.7); MCHC 33.5 g/dl (32.0-35.9); MEAN CELL VOLUME 85.2 fl (80-96); MEAN PLT VOLUME 8.6 fl (7.5-11.1); PLATELET COUNT 275 10^3/uL (134-434); RBC 4.24 M/mm3 (4.00-5.60); RDW 17.3 % (11.9-15.9); WHITE BLOOD COUNT 5.1 K/mm3 (4.0-10.0)
[2021-10-01] MEDS: diazePAM 5 MG TABLET PO PRN (10:55)
[2021-10-01] MEDS: BUDESONIDE/FORMETEROL FUMARATE 80/4.5 mcg INHALER IH SCH ×2 (10:57→22:52)
[2021-10-01] MEDS: APIXABAN 5 MG TABLET PO SCH ×2 (10:57→22:52)
[2021-10-01] MEDS: PRENATAL VITAMINS W/ FOLIC ACID TABLET (FP) PO SCH (10:57)
[2021-10-01 11:14] LABS: CALCIUM 8.7 mg/dL (8.5-10.1)
[2021-10-01 11:15] LABS: ALBUMIN 3.5 g/dl (3.4-5.0)
[2021-10-01 11:18] LABS: CREATININE 1.1 mg/dL (0.55-1.3)
[2021-10-01 11:19] LABS: BILIRUBIN,TOTAL 0.8 mg/dL (0.2-1); TOT PROT 7.2 g/dl (6.4-8.2)
[2021-10-01 11:20] LABS: BLOOD UREA NITROGEN 5.1 mg/dL (7-18)
[2021-10-01] MEDS: hydrOXYzine PAMOATE 25 MG CAPSULE (FP) PO PRN ×2 (15:26→22:52)
[2021-10-01] MEDS: FAMOTIDINE 20 MG TABLET PO SCH (15:41)
[2021-10-01] MEDS: TAMSULOSIN HCL 0.4 MG CAP PO SCH (22:51)
[2021-10-01] MEDS: traZODone HCL 50 MG TABLET (FP) PO PRN (22:52)
[2021-10-01] MEDS: MELATONIN 5 MG TABLETS PO SCH (22:52)
[2021-10-01] MEDS: THIAMINE HCL 100 MG TABLET (FP) PO SCH (22:52)
[2021-10-01] MEDS: LATANOPROST 0.005% OPHTH SOLN 2.5ML BOTTLE OU SCH (23:05)
[2021-10-02] MEDS: diazePAM 5 MG TABLET PO SCH ×2 (06:20→18:05)
[2021-10-02] MEDS ORDERED: TIMOLOL 0.5% OPHTHALMIC SOL 5 ML BOTTLE OU SCH (10:30)
[2021-10-02] MEDS: BUDESONIDE/FORMETEROL FUMARATE 80/4.5 mcg INHALER IH SCH ×2 (11:14→22:41)
[2021-10-02] MEDS: FAMOTIDINE 20 MG TABLET PO SCH (11:14)
[2021-10-02] MEDS: APIXABAN 5 MG TABLET PO SCH ×2 (11:14→22:40)
[2021-10-02] MEDS: hydrOXYzine PAMOATE 25 MG CAPSULE (FP) PO PRN (11:14)
[2021-10-02] MEDS: PRENATAL VITAMINS W/ FOLIC ACID TABLET (FP) PO SCH (11:15)
[2021-10-02] MEDS: diazePAM 5 MG TABLET PO PRN (11:15)
[2021-10-02] MEDS: TIMOLOL 0.5% OPHTHALMIC SOL 5 ML BOTTLE OU SCH (18:07)
[2021-10-02] MEDS: THIAMINE HCL 100 MG TABLET (FP) PO SCH (22:40)
[2021-10-02] MEDS: TAMSULOSIN HCL 0.4 MG CAP PO SCH (22:40)
[2021-10-02] MEDS: MELATONIN 5 MG TABLETS PO SCH (22:41)
[2021-10-02] MEDS: LATANOPROST 0.005% OPHTH SOLN 2.5ML BOTTLE OU SCH (22:42)
[2021-10-03] MEDS ORDERED: diazePAM 5 MG TABLET PO ONE (06:00)
[2021-10-03] MEDS: BUDESONIDE/FORMETEROL FUMARATE 80/4.5 mcg INHALER IH SCH ×2 (10:45→22:58)
[2021-10-03] MEDS: PRENATAL VITAMINS W/ FOLIC ACID TABLET (FP) PO SCH (10:46)
[2021-10-03] MEDS: TIMOLOL 0.5% OPHTHALMIC SOL 5 ML BOTTLE OU SCH ×2 (10:46→18:14)
[2021-10-03] MEDS: FAMOTIDINE 20 MG TABLET PO SCH (10:46)
[2021-10-03] MEDS: hydrOXYzine PAMOATE 25 MG CAPSULE (FP) PO PRN ×2 (10:46→22:57)
[2021-10-03] MEDS: APIXABAN 5 MG TABLET PO SCH ×2 (10:46→22:58)
[2021-10-03] MEDS: traZODone HCL 50 MG TABLET (FP) PO PRN (22:57)
[2021-10-03] MEDS: TAMSULOSIN HCL 0.4 MG CAP PO SCH (22:58)
[2021-10-03] MEDS: LATANOPROST 0.005% OPHTH SOLN 2.5ML BOTTLE OU SCH (22:58)
[2021-10-03] MEDS: THIAMINE HCL 100 MG TABLET (FP) PO SCH (22:58)
[2021-10-03] MEDS: MELATONIN 5 MG TABLETS PO SCH (22:59)
[2021-10-04] MEDS: BUDESONIDE/FORMETEROL FUMARATE 80/4.5 mcg INHALER IH SCH (11:09)
[2021-10-04] MEDS: FAMOTIDINE 20 MG TABLET PO SCH (11:09)
[2021-10-04] MEDS: PRENATAL VITAMINS W/ FOLIC ACID TABLET (FP) PO SCH (11:09)
[2021-10-04] MEDS: TIMOLOL 0.5% OPHTHALMIC SOL 5 ML BOTTLE OU SCH (11:10)
[2021-10-04] MEDS: APIXABAN 5 MG TABLET PO SCH (11:11)
[2021-10-04] MEDS: hydrOXYzine PAMOATE 25 MG CAPSULE (FP) PO PRN (11:55)
[2021-10-04 12:46] VITALS: BP 108/73; PULSE 64; TEMP 96.4
== END 2021-10-04 15:37 | disposition home or self-care (01) | DRG 775 ==
LOC: YASAS 19:28 → Y3N 22:33
PROVIDERS: ADMIT Allergy & Immunology; ATTEND Allergy & Immunology
PROC: HZ2ZZZZ Detoxification Services for Substance Abuse Treatment (ICD-10-PCS; principal; 2021-09-29)
DX: F10.230 Alcohol dependence with withdrawal, uncomplicated (principal); F17.210 Nicotine dependence, cigarettes, uncomplicated; F10.220 Alcohol dependence with intoxication, uncomplicated; F20.9 Schizophrenia, unspecified; F41.9 Anxiety disorder, unspecified; F32.A Depression, unspecified; H40.9 Unspecified glaucoma; J44.9 Chronic obstructive pulmonary disease, unspecified; K21.9 Gastro-esophageal reflux disease without esophagitis; M54.50 Low back pain, unspecified; G89.29 Other chronic pain; N40.0 Benign prostatic hyperplasia without lower urinary tract symptoms; R73.9 Hyperglycemia, unspecified; Z20.828 Contact with and (suspected) exposure to other viral communicable diseases; Z88.0 Allergy status to penicillin; Z88.6 Allergy status to analgesic agent; Z91.013 Allergy to seafood; Z91.018 Allergy to other foods
CPT/HCPCS: 36415; 80053; 83036; 85027; 86780; C9803; Q0162; U0003; U0005

== ENCOUNTER 2021-11-17 15:01 | Inpatient (IN) | payer OTHER ==
[2021-11-17] MEDS ORDERED: ONDANSETRON *ODT* 4 MG TABLET SL PRN (16:41)
[2021-11-17] MEDS ORDERED: NICOTINE 10 MG CARTRIDGE (INHALER) IH PRN (16:41)
[2021-11-17] MEDS ORDERED: MAGNESIUM CITRATE 300 ML BOTTLE PO PRN (16:41)
[2021-11-17] MEDS ORDERED: chlordiazePOXIDE HCL 25 MG CAPSULE PO PRN (16:41)
[2021-11-17] MEDS ORDERED: IBUPROFEN 400 MG TABLET (FP) PO PRN (16:41)
[2021-11-17] MEDS ORDERED: BISMUTH SUBSALICYLATE 524 MG/30 ML PO PRN (16:41)
[2021-11-17] MEDS ORDERED: MAGNESIUM HYDROX 2400MG/30ML ORAL SUSPENSION 30 ML CUP PO PRN (16:41)
[2021-11-17] MEDS ORDERED: ACETAMINOPHEN 325 MG TABLET (FP) PO PRN ×2 (16:41)
[2021-11-17] MEDS ORDERED: MAG HYDROX/AL HYDROX/SIMETH 30 ML UNIT-DOSE CUP PO PRN (16:41)
[2021-11-17] MEDS ORDERED: MENTHOL/PHENOL 1 EACH UD MM PRN (16:41)
[2021-11-17 21:03] VITALS: BMI 31.7
[2021-11-18] MEDS: chlordiazePOXIDE HCL 25 MG CAPSULE PO SCH ×5 (00:32→19:34)
[2021-11-18] MEDS: hydrOXYzine PAMOATE 25 MG CAPSULE (FP) PO SCH ×6 (00:35→19:57)
[2021-11-18] MEDS: MELATONIN 5 MG TABLETS PO SCH (00:35)
[2021-11-18] MEDS: PRENATAL VITAMINS W/ FOLIC ACID TABLET (FP) PO SCH ×2 (00:35→11:25)
[2021-11-18] MEDS: THIAMINE HCL 100 MG TABLET (FP) PO SCH (00:36)
[2021-11-18 10:43] LABS: HEMATOCRIT 34.5 % (35.4-49); HEMOGLOBIN 11.6 GM/dL (11.7-16.9); MCH 28.3 pg (25.7-33.7); MCHC 33.7 g/dl (32.0-35.9); MEAN CELL VOLUME 84.1 fl (80-96); MEAN PLT VOLUME 9.3 fl (7.5-11.1); PLATELET COUNT 318 10^3/uL (134-434); RDW 16.9 % (11.9-15.9); WHITE BLOOD COUNT 5.6 K/mm3 (4.0-10.0)
[2021-11-18 10:48] LABS: BLOOD UREA NITROGEN 13.5 mg/dL (7-18); CALCIUM 9.3 mg/dL (8.5-10.1)
[2021-11-18 10:49] LABS: ALBUMIN 3.5 g/dl (3.4-5.0)
[2021-11-18 10:51] LABS: CREATININE 0.9 mg/dL (0.55-1.3)
[2021-11-18 10:53] LABS: BILIRUBIN,TOTAL 0.2 mg/dL (0.2-1)
[2021-11-18] MEDS: METHOCARBAMOL 500 MG TABLET PO PRN (11:24)
[2021-11-18] MEDS ORDERED: ALBUTEROL SO4 HFA INHALER IH PRN (14:36)
[2021-11-18] MEDS: LIDOCAINE 5% TOPICAL PATCH TP SCH (15:38)
[2021-11-19] MEDS: APIXABAN 5 MG TABLET PO SCH ×3 (01:03→23:10)
[2021-11-19] MEDS: TAMSULOSIN HCL 0.4 MG CAP PO SCH ×2 (01:03→23:09)
[2021-11-19] MEDS: LIDOCAINE PATCH REMOVAL MC SCH ×2 (01:03→23:12)
[2021-11-19] MEDS: BUDESONIDE/FORMETEROL FUMARATE 80/4.5 mcg INHALER IH SCH ×3 (01:03→23:10)
[2021-11-19] MEDS: TIMOLOL 0.5% OPHTHALMIC SOL 5 ML BOTTLE OU SCH ×3 (01:03→23:12)
[2021-11-19] MEDS: hydrOXYzine PAMOATE 25 MG CAPSULE (FP) PO SCH ×6 (01:03→23:12)
[2021-11-19] MEDS: MELATONIN 5 MG TABLETS PO SCH ×2 (01:03→23:10)
[2021-11-19] MEDS: CARVEDILOL 6.25 MG PO SCH ×3 (01:03→23:10)
[2021-11-19] MEDS: THIAMINE HCL 100 MG TABLET (FP) PO SCH ×2 (01:04→23:09)
[2021-11-19] MEDS: LATANOPROST 0.005% OPHTH SOLN 2.5ML BOTTLE OU SCH ×2 (01:04→23:13)
[2021-11-19] MEDS: chlordiazePOXIDE HCL 25 MG CAPSULE PO SCH ×5 (01:25→23:10)
[2021-11-19] MEDS: PRENATAL VITAMINS W/ FOLIC ACID TABLET (FP) PO SCH (11:11)
[2021-11-19] MEDS: PANTOPRAZOLE 40 MG TABLET PO SCH (11:11)
[2021-11-19] MEDS: METHOCARBAMOL 500 MG TABLET PO PRN (11:11)
[2021-11-19] MEDS: LIDOCAINE 5% TOPICAL PATCH TP SCH (11:12)
[2021-11-20] MEDS ORDERED: chlordiazePOXIDE HCL 10 MG CAPSULE PO PRN
[2021-11-20] MEDS: hydrOXYzine PAMOATE 25 MG CAPSULE (FP) PO SCH ×5 (05:40→23:07)
[2021-11-20] MEDS: chlordiazePOXIDE HCL 10 MG CAPSULE PO SCH ×4 (05:41→23:05)
[2021-11-20] MEDS: CARVEDILOL 6.25 MG PO SCH ×2 (11:10→23:06)
[2021-11-20] MEDS: APIXABAN 5 MG TABLET PO SCH ×2 (11:10→23:04)
[2021-11-20] MEDS: TIMOLOL 0.5% OPHTHALMIC SOL 5 ML BOTTLE OU SCH ×2 (11:15→23:07)
[2021-11-20] MEDS: PRENATAL VITAMINS W/ FOLIC ACID TABLET (FP) PO SCH (11:15)
[2021-11-20] MEDS: PANTOPRAZOLE 40 MG TABLET PO SCH (11:15)
[2021-11-20] MEDS: BUDESONIDE/FORMETEROL FUMARATE 80/4.5 mcg INHALER IH SCH ×2 (11:15→23:07)
[2021-11-20] MEDS: LIDOCAINE 5% TOPICAL PATCH TP SCH (11:49)
[2021-11-20] MEDS: TAMSULOSIN HCL 0.4 MG CAP PO SCH (23:04)
[2021-11-20] MEDS: LIDOCAINE PATCH REMOVAL MC SCH (23:06)
[2021-11-20] MEDS: LATANOPROST 0.005% OPHTH SOLN 2.5ML BOTTLE OU SCH (23:07)
[2021-11-20] MEDS: MELATONIN 5 MG TABLETS PO SCH (23:07)
[2021-11-20] MEDS: THIAMINE HCL 100 MG TABLET (FP) PO SCH (23:07)
[2021-11-21] MEDS: chlordiazePOXIDE HCL 10 MG CAPSULE PO SCH ×2 (05:59→19:07)
[2021-11-21] MEDS: hydrOXYzine PAMOATE 25 MG CAPSULE (FP) PO SCH ×5 (05:59→23:33)
[2021-11-21] MEDS: APIXABAN 5 MG TABLET PO SCH ×2 (11:00→23:33)
[2021-11-21] MEDS: TIMOLOL 0.5% OPHTHALMIC SOL 5 ML BOTTLE OU SCH ×2 (11:00→23:32)
[2021-11-21] MEDS: PANTOPRAZOLE 40 MG TABLET PO SCH (11:00)
[2021-11-21] MEDS: BUDESONIDE/FORMETEROL FUMARATE 80/4.5 mcg INHALER IH SCH ×2 (11:00→23:32)
[2021-11-21] MEDS: CARVEDILOL 6.25 MG PO SCH ×2 (11:00→23:33)
[2021-11-21] MEDS: PRENATAL VITAMINS W/ FOLIC ACID TABLET (FP) PO SCH (11:00)
[2021-11-21] MEDS: LIDOCAINE 5% TOPICAL PATCH TP SCH (12:08)
[2021-11-21] MEDS: LORATADINE 10 MG TABLET PO SCH (12:59)
[2021-11-21] MEDS: LATANOPROST 0.005% OPHTH SOLN 2.5ML BOTTLE OU SCH (23:33)
[2021-11-21] MEDS: THIAMINE HCL 100 MG TABLET (FP) PO SCH (23:33)
[2021-11-21] MEDS: TAMSULOSIN HCL 0.4 MG CAP PO SCH (23:34)
[2021-11-22] MEDS: LIDOCAINE PATCH REMOVAL MC SCH (01:01)
[2021-11-22] MEDS: MELATONIN 5 MG TABLETS PO SCH (01:01)
[2021-11-22] MEDS ORDERED: chlordiazePOXIDE HCL 10 MG CAPSULE PO ONE (05:00)
[2021-11-22] MEDS: hydrOXYzine PAMOATE 25 MG CAPSULE (FP) PO SCH ×2 (06:11→10:25)
[2021-11-22] MEDS: LIDOCAINE 5% TOPICAL PATCH TP SCH (10:24)
[2021-11-22] MEDS: PRENATAL VITAMINS W/ FOLIC ACID TABLET (FP) PO SCH (10:24)
[2021-11-22] MEDS: PANTOPRAZOLE 40 MG TABLET PO SCH (10:25)
[2021-11-22] MEDS: TIMOLOL 0.5% OPHTHALMIC SOL 5 ML BOTTLE OU SCH (10:25)
[2021-11-22] MEDS: CARVEDILOL 6.25 MG PO SCH (10:25)
[2021-11-22] MEDS: LORATADINE 10 MG TABLET PO SCH (10:25)
[2021-11-22] MEDS: BUDESONIDE/FORMETEROL FUMARATE 80/4.5 mcg INHALER IH SCH (10:25)
[2021-11-22] MEDS: APIXABAN 5 MG TABLET PO SCH (10:25)
[2021-11-22 12:46] VITALS: BP 106/65; PULSE 89; TEMP 97.1
== END 2021-11-22 13:55 | disposition other institution (70) | DRG 774 ==
LOC: YASAS 15:01 → Y6N 18:58
PROVIDERS: ADMIT Allergy & Immunology; ATTEND Allergy & Immunology
PROC: HZ2ZZZZ Detoxification Services for Substance Abuse Treatment (ICD-10-PCS; principal; 2021-11-17)
DX: F10.230 Alcohol dependence with withdrawal, uncomplicated (principal); F14.20 Cocaine dependence, uncomplicated; F12.20 Cannabis dependence, uncomplicated; F17.210 Nicotine dependence, cigarettes, uncomplicated; J45.20 Mild intermittent asthma, uncomplicated; J43.9 Emphysema, unspecified; N40.0 Benign prostatic hyperplasia without lower urinary tract symptoms; H40.2231 Chronic angle-closure glaucoma, bilateral, mild stage; D64.9 Anemia, unspecified; K21.9 Gastro-esophageal reflux disease without esophagitis; M19.90 Unspecified osteoarthritis, unspecified site; R26.2 Difficulty in walking, not elsewhere classified; Z99.89 Dependence on other enabling machines and devices; Z86.69 Personal history of other diseases of the nervous system and sense organs; Z88.0 Allergy status to penicillin; Z88.6 Allergy status to analgesic agent; Z88.8 Allergy status to other drugs, medicaments and biological substances; Z91.013 Allergy to seafood; Z91.018 Allergy to other foods
CPT/HCPCS: 36415; 80053; 85027; 86780; C9803; Q0162; U0003; U0005

== ENCOUNTER 2021-11-22 14:14 | Inpatient (IN) | payer OTHER ==
[2021-11-22] MEDS ORDERED: LOPERAMIDE HCL 2 MG CAPSULE PO PRN (14:37)
[2021-11-22] MEDS ORDERED: MAG HYDROX/AL HYDROX/SIMETH 30 ML UNIT-DOSE CUP PO PRN (14:37)
[2021-11-22] MEDS ORDERED: MAGNESIUM HYDROX 2400MG/30ML ORAL SUSPENSION 30 ML CUP PO PRN (14:37)
[2021-11-22] MEDS ORDERED: P-EPHED 60MG/TRIPROLIDI 2.5MG TABLET PO PRN (14:37)
[2021-11-22] MEDS ORDERED: IBUPROFEN 400 MG TABLET (FP) PO PRN (14:37)
[2021-11-22] MEDS: LIDOCAINE PATCH REMOVAL MC SCH (21:51)
[2021-11-22] MEDS: MELATONIN 5 MG TABLETS PO SCH (21:52)
[2021-11-22] MEDS: APIXABAN 5 MG TABLET PO SCH (21:53)
[2021-11-22] MEDS: CARVEDILOL 6.25 MG TABLET (FP) PO SCH (21:53)
[2021-11-22] MEDS: TAMSULOSIN HCL 0.4 MG CAP PO SCH (21:53)
[2021-11-22] MEDS: THIAMINE HCL 100 MG TABLET (FP) PO SCH (21:53)
[2021-11-22] MEDS: BUDESONIDE/FORMETEROL FUMARATE 80/4.5 mcg INHALER IH SCH (21:54)
[2021-11-22] MEDS: LATANOPROST 0.005% OPHTH SOLN 2.5ML BOTTLE OU SCH (23:11)
[2021-11-22] MEDS: TIMOLOL 0.5% OPHTHALMIC SOL 5 ML BOTTLE OU SCH (23:11)
[2021-11-23] MEDS ORDERED: LORATADINE 10 MG TABLET PO SCH (10:00)
[2021-11-23] MEDS: APIXABAN 5 MG TABLET PO SCH ×2 (10:02→22:03)
[2021-11-23] MEDS: LIDOCAINE 5% TOPICAL PATCH TP SCH (10:02)
[2021-11-23] MEDS: PANTOPRAZOLE 40 MG TABLET PO SCH (10:03)
[2021-11-23] MEDS: PRENATAL VITAMINS W/ FOLIC ACID TABLET (FP) PO SCH (10:03)
[2021-11-23] MEDS: COLLOIDAL OATMEAL 1 BAR EACH TP PRN (10:08)
[2021-11-23] MEDS: BUDESONIDE/FORMETEROL FUMARATE 80/4.5 mcg INHALER IH SCH ×2 (10:09→22:04)
[2021-11-23] MEDS: TIMOLOL 0.5% OPHTHALMIC SOL 5 ML BOTTLE OU SCH ×2 (10:10→19:41)
[2021-11-23] MEDS: ALBUTEROL SO4 HFA INHALER IH PRN ×2 (10:11→19:48)
[2021-11-23] MEDS: ACETAMINOPHEN 325 MG TABLET (FP) PO PRN (10:12)
[2021-11-23] MEDS ORDERED: PT OWN MED DRAWER 7, Y5N ONE ×3 (10:49→20:08)
[2021-11-23] MEDS: CARVEDILOL 6.25 MG TABLET (FP) PO SCH ×2 (12:15→22:03)
[2021-11-23] MEDS: TAMSULOSIN HCL 0.4 MG CAP PO SCH (22:03)
[2021-11-23] MEDS: THIAMINE HCL 100 MG TABLET (FP) PO SCH (22:03)
[2021-11-23] MEDS: MELATONIN 5 MG TABLETS PO SCH (22:04)
[2021-11-23] MEDS: LATANOPROST 0.005% OPHTH SOLN 2.5ML BOTTLE OU SCH (22:04)
[2021-11-23] MEDS: LIDOCAINE PATCH REMOVAL MC SCH (23:45)
[2021-11-24] MEDS ORDERED: PT OWN MED DRAWER 7, Y5N ONE ×6 (03:23→22:12)
[2021-11-24] MEDS: TIMOLOL 0.5% OPHTHALMIC SOL 5 ML BOTTLE OU SCH ×2 (07:49→18:03)
[2021-11-24] MEDS: PANTOPRAZOLE 40 MG TABLET PO SCH (10:53)
[2021-11-24] MEDS: LISINOPRIL 5 MG TABLET PO SCH (10:53)
[2021-11-24] MEDS: APIXABAN 5 MG TABLET PO SCH ×2 (10:54→22:04)
[2021-11-24] MEDS: CARVEDILOL 6.25 MG TABLET (FP) PO SCH ×2 (10:54→21:56)
[2021-11-24] MEDS: LIDOCAINE 5% TOPICAL PATCH TP SCH (10:55)
[2021-11-24] MEDS: BUDESONIDE/FORMETEROL FUMARATE 80/4.5 mcg INHALER IH SCH ×2 (10:56→21:59)
[2021-11-24] MEDS: PRENATAL VITAMINS W/ FOLIC ACID TABLET (FP) PO SCH (10:56)
[2021-11-24] MEDS: ALBUTEROL SO4 HFA INHALER IH PRN ×2 (10:59→22:12)
[2021-11-24] MEDS ORDERED: P-EPHED 60MG/TRIPROLIDI 2.5MG TABLET PO PRN (12:09)
[2021-11-24] MEDS: FAMOTIDINE 20 MG TABLET PO SCH ×2 (13:06→21:56)
[2021-11-24] MEDS: MELATONIN 5 MG TABLETS PO SCH (21:56)
[2021-11-24] MEDS: TAMSULOSIN HCL 0.4 MG CAP PO SCH (21:56)
[2021-11-24] MEDS: THIAMINE HCL 100 MG TABLET (FP) PO SCH (21:56)
[2021-11-24] MEDS: LATANOPROST 0.005% OPHTH SOLN 2.5ML BOTTLE OU SCH (21:58)
[2021-11-24] MEDS: LIDOCAINE PATCH REMOVAL MC SCH (22:17)
[2021-11-25] MEDS: TIMOLOL 0.5% OPHTHALMIC SOL 5 ML BOTTLE OU SCH ×2 (06:28→18:19)
[2021-11-25] MEDS: APIXABAN 5 MG TABLET PO SCH ×2 (09:09→21:51)
[2021-11-25] MEDS: CARVEDILOL 6.25 MG TABLET (FP) PO SCH ×2 (09:09→21:51)
[2021-11-25] MEDS: LORATADINE 10 MG TABLET PO SCH (09:09)
[2021-11-25] MEDS: LIDOCAINE 5% TOPICAL PATCH TP SCH (09:09)
[2021-11-25] MEDS: FAMOTIDINE 20 MG TABLET PO SCH ×2 (09:10→21:51)
[2021-11-25] MEDS: BUDESONIDE/FORMETEROL FUMARATE 80/4.5 mcg INHALER IH SCH ×2 (09:10→21:52)
[2021-11-25] MEDS: LISINOPRIL 5 MG TABLET PO SCH (09:10)
[2021-11-25] MEDS: PRENATAL VITAMINS W/ FOLIC ACID TABLET (FP) PO SCH (09:10)
[2021-11-25] MEDS: ALBUTEROL SO4 HFA INHALER IH PRN ×2 (09:11→21:50)
[2021-11-25] MEDS ORDERED: PT OWN MED DRAWER 7, Y5N ONE ×3 (18:14→22:06)
[2021-11-25] MEDS: TAMSULOSIN HCL 0.4 MG CAP PO SCH (21:50)
[2021-11-25] MEDS: LIDOCAINE PATCH REMOVAL MC SCH (21:51)
[2021-11-25] MEDS: LATANOPROST 0.005% OPHTH SOLN 2.5ML BOTTLE OU SCH (21:53)
[2021-11-25] MEDS: ACETAMINOPHEN 325 MG TABLET (FP) PO PRN (21:54)
[2021-11-25] MEDS: MELATONIN 5 MG TABLETS PO SCH (23:13)
[2021-11-25] MEDS: THIAMINE HCL 100 MG TABLET (FP) PO SCH (23:13)
[2021-11-26] MEDS ORDERED: PT OWN MED DRAWER 7, Y5N ONE ×4 (02:06→19:42)
[2021-11-26] MEDS: TIMOLOL 0.5% OPHTHALMIC SOL 5 ML BOTTLE OU SCH ×2 (06:38→18:10)
[2021-11-26] MEDS: ACETAMINOPHEN 325 MG TABLET (FP) PO PRN (06:39)
[2021-11-26] MEDS: LORATADINE 10 MG TABLET PO SCH (09:18)
[2021-11-26] MEDS: FAMOTIDINE 20 MG TABLET PO SCH ×2 (09:18→21:49)
[2021-11-26] MEDS: BUDESONIDE/FORMETEROL FUMARATE 80/4.5 mcg INHALER IH SCH ×2 (09:18→21:47)
[2021-11-26] MEDS: PRENATAL VITAMINS W/ FOLIC ACID TABLET (FP) PO SCH (09:18)
[2021-11-26] MEDS: APIXABAN 5 MG TABLET PO SCH ×2 (09:18→21:49)
[2021-11-26] MEDS: LISINOPRIL 5 MG TABLET PO SCH (09:18)
[2021-11-26] MEDS: CARVEDILOL 6.25 MG TABLET (FP) PO SCH ×2 (09:18→21:49)
[2021-11-26] MEDS: LIDOCAINE 5% TOPICAL PATCH TP SCH (09:19)
[2021-11-26] MEDS: COLLOIDAL OATMEAL 1 BAR EACH TP PRN (12:25)
[2021-11-26] MEDS: LATANOPROST 0.005% OPHTH SOLN 2.5ML BOTTLE OU SCH (21:48)
[2021-11-26] MEDS: ALBUTEROL SO4 HFA INHALER IH PRN (21:48)
[2021-11-26] MEDS: TAMSULOSIN HCL 0.4 MG CAP PO SCH (21:49)
[2021-11-26] MEDS: THIAMINE HCL 100 MG TABLET (FP) PO SCH (21:49)
[2021-11-26] MEDS: LIDOCAINE PATCH REMOVAL MC SCH (21:49)
[2021-11-26] MEDS: MELATONIN 5 MG TABLETS PO SCH (21:49)
[2021-11-27] MEDS ORDERED: PT OWN MED DRAWER 7, Y5N ONE ×4 (02:17→19:24)
[2021-11-27] MEDS: TIMOLOL 0.5% OPHTHALMIC SOL 5 ML BOTTLE OU SCH ×2 (06:45→18:05)
[2021-11-27] MEDS: LIDOCAINE 5% TOPICAL PATCH TP SCH (09:36)
[2021-11-27] MEDS: CARVEDILOL 6.25 MG TABLET (FP) PO SCH ×2 (09:37→21:56)
[2021-11-27] MEDS: LISINOPRIL 5 MG TABLET PO SCH (09:37)
[2021-11-27] MEDS: FAMOTIDINE 20 MG TABLET PO SCH ×2 (09:37→21:49)
[2021-11-27] MEDS: APIXABAN 5 MG TABLET PO SCH ×2 (09:37→21:48)
[2021-11-27] MEDS: LORATADINE 10 MG TABLET PO SCH (09:37)
[2021-11-27] MEDS: BUDESONIDE/FORMETEROL FUMARATE 80/4.5 mcg INHALER IH SCH ×2 (09:38→21:56)
[2021-11-27] MEDS: PRENATAL VITAMINS W/ FOLIC ACID TABLET (FP) PO SCH (09:38)
[2021-11-27] MEDS: ACETAMINOPHEN 325 MG TABLET (FP) PO PRN ×2 (09:39→21:51)
[2021-11-27] MEDS: ALBUTEROL SO4 HFA INHALER IH PRN (09:40)
[2021-11-27] MEDS: TAMSULOSIN HCL 0.4 MG CAP PO SCH (21:48)
[2021-11-27] MEDS: THIAMINE HCL 100 MG TABLET (FP) PO SCH (21:48)
[2021-11-27] MEDS: LIDOCAINE PATCH REMOVAL MC SCH (21:49)
[2021-11-27] MEDS: LATANOPROST 0.005% OPHTH SOLN 2.5ML BOTTLE OU SCH (21:50)
[2021-11-27] MEDS: MELATONIN 5 MG TABLETS PO SCH (21:50)
[2021-11-28] MEDS ORDERED: PT OWN MED DRAWER 7, Y5N ONE ×5 (03:57→22:03)
[2021-11-28] MEDS: TIMOLOL 0.5% OPHTHALMIC SOL 5 ML BOTTLE OU SCH ×2 (06:42→18:08)
[2021-11-28] MEDS: LIDOCAINE 5% TOPICAL PATCH TP SCH (09:49)
[2021-11-28] MEDS: CARVEDILOL 6.25 MG TABLET (FP) PO SCH ×2 (09:50→21:46)
[2021-11-28] MEDS: FAMOTIDINE 20 MG TABLET PO SCH ×2 (09:50→21:46)
[2021-11-28] MEDS: LISINOPRIL 5 MG TABLET PO SCH (09:50)
[2021-11-28] MEDS: APIXABAN 5 MG TABLET PO SCH ×2 (09:50→21:46)
[2021-11-28] MEDS: PRENATAL VITAMINS W/ FOLIC ACID TABLET (FP) PO SCH (09:51)
[2021-11-28] MEDS: LORATADINE 10 MG TABLET PO SCH (09:51)
[2021-11-28] MEDS: ACETAMINOPHEN 325 MG TABLET (FP) PO PRN (09:51)
[2021-11-28] MEDS: BUDESONIDE/FORMETEROL FUMARATE 80/4.5 mcg INHALER IH SCH ×2 (09:51→21:45)
[2021-11-28] MEDS: ALBUTEROL SO4 HFA INHALER IH PRN (21:44)
[2021-11-28] MEDS: MELATONIN 5 MG TABLETS PO SCH (21:46)
[2021-11-28] MEDS: THIAMINE HCL 100 MG TABLET (FP) PO SCH (21:46)
[2021-11-28] MEDS: LIDOCAINE PATCH REMOVAL MC SCH (21:46)
[2021-11-28] MEDS: TAMSULOSIN HCL 0.4 MG CAP PO SCH (21:46)
[2021-11-28] MEDS: LATANOPROST 0.005% OPHTH SOLN 2.5ML BOTTLE OU SCH (21:50)
[2021-11-29] MEDS: ACETAMINOPHEN 325 MG TABLET (FP) PO PRN ×3 (01:08→21:31)
[2021-11-29] MEDS ORDERED: PT OWN MED DRAWER 7, Y5N ONE ×6 (01:26→19:56)
[2021-11-29] MEDS: hydrOXYzine PAMOATE 25 MG CAPSULE (FP) PO PRN ×2 (03:11→21:28)
[2021-11-29] MEDS: TIMOLOL 0.5% OPHTHALMIC SOL 5 ML BOTTLE OU SCH ×2 (06:25→17:42)
[2021-11-29] MEDS: LORATADINE 10 MG TABLET PO SCH (09:09)
[2021-11-29] MEDS: CARVEDILOL 6.25 MG TABLET (FP) PO SCH ×2 (09:10→21:29)
[2021-11-29] MEDS: LISINOPRIL 5 MG TABLET PO SCH (09:10)
[2021-11-29] MEDS: FAMOTIDINE 20 MG TABLET PO SCH ×2 (09:10→21:29)
[2021-11-29] MEDS: LIDOCAINE 5% TOPICAL PATCH TP SCH (09:11)
[2021-11-29] MEDS: APIXABAN 5 MG TABLET PO SCH ×2 (09:11→21:28)
[2021-11-29] MEDS: PRENATAL VITAMINS W/ FOLIC ACID TABLET (FP) PO SCH (09:11)
[2021-11-29] MEDS: BUDESONIDE/FORMETEROL FUMARATE 80/4.5 mcg INHALER IH SCH ×2 (09:12→21:29)
[2021-11-29] MEDS: SELENIUM SULFIDE 2.5% LOTION 4 OZ. TP SCH (13:49)
[2021-11-29] MEDS: MAGNESIUM CITRATE 300 ML BOTTLE PO PRN (15:46)
[2021-11-29] MEDS: THIAMINE HCL 100 MG TABLET (FP) PO SCH (21:29)
[2021-11-29] MEDS: TAMSULOSIN HCL 0.4 MG CAP PO SCH (21:29)
[2021-11-29] MEDS: MELATONIN 5 MG TABLETS PO SCH (21:30)
[2021-11-29] MEDS: LATANOPROST 0.005% OPHTH SOLN 2.5ML BOTTLE OU SCH (21:30)
[2021-11-29] MEDS: LIDOCAINE PATCH REMOVAL MC SCH (21:30)
[2021-11-30] MEDS ORDERED: PT OWN MED DRAWER 7, Y5N ONE ×6 (01:45→20:17)
[2021-11-30] MEDS: TIMOLOL 0.5% OPHTHALMIC SOL 5 ML BOTTLE OU SCH ×2 (06:42→17:57)
[2021-11-30] MEDS: LORATADINE 10 MG TABLET PO SCH (10:37)
[2021-11-30] MEDS: APIXABAN 5 MG TABLET PO SCH ×2 (10:38→21:08)
[2021-11-30] MEDS: FAMOTIDINE 20 MG TABLET PO SCH ×2 (10:38→21:08)
[2021-11-30] MEDS: LISINOPRIL 5 MG TABLET PO SCH (10:40)
[2021-11-30] MEDS: CARVEDILOL 6.25 MG TABLET (FP) PO SCH ×2 (10:40→21:08)
[2021-11-30] MEDS: LIDOCAINE 5% TOPICAL PATCH TP SCH (10:40)
[2021-11-30] MEDS: BUDESONIDE/FORMETEROL FUMARATE 80/4.5 mcg INHALER IH SCH ×2 (10:40→21:07)
[2021-11-30] MEDS: PRENATAL VITAMINS W/ FOLIC ACID TABLET (FP) PO SCH (10:40)
[2021-11-30] MEDS: hydrOXYzine PAMOATE 25 MG CAPSULE (FP) PO PRN ×2 (10:41→21:16)
[2021-11-30] MEDS: SELENIUM SULFIDE 2.5% LOTION 4 OZ. TP SCH (10:41)
[2021-11-30] MEDS: THIAMINE HCL 100 MG TABLET (FP) PO SCH (21:08)
[2021-11-30] MEDS: TAMSULOSIN HCL 0.4 MG CAP PO SCH (21:08)
[2021-11-30] MEDS: ALBUTEROL SO4 HFA INHALER IH PRN (21:09)
[2021-11-30] MEDS: LATANOPROST 0.005% OPHTH SOLN 2.5ML BOTTLE OU SCH (21:10)
[2021-11-30] MEDS: MELATONIN 5 MG TABLETS PO SCH (21:12)
[2021-11-30] MEDS: ACETAMINOPHEN 325 MG TABLET (FP) PO PRN (21:14)
[2021-11-30] MEDS: LIDOCAINE PATCH REMOVAL MC SCH (23:34)
[2021-11-30] MEDS: DOCUSATE SODIUM 100 MG CAPSULE (FP) PO SCH (23:34)
[2021-12-01] MEDS ORDERED: PT OWN MED DRAWER 7, Y5N ONE ×4 (01:40→19:15)
[2021-12-01] MEDS: DOCUSATE SODIUM 100 MG CAPSULE (FP) PO SCH ×3 (06:13→21:37)
[2021-12-01] MEDS: TIMOLOL 0.5% OPHTHALMIC SOL 5 ML BOTTLE OU SCH ×2 (06:13→18:10)
[2021-12-01] MEDS: LIDOCAINE 5% TOPICAL PATCH TP SCH (09:38)
[2021-12-01] MEDS: APIXABAN 5 MG TABLET PO SCH ×2 (09:39→21:35)
[2021-12-01] MEDS: FAMOTIDINE 20 MG TABLET PO SCH ×2 (09:39→21:36)
[2021-12-01] MEDS: CARVEDILOL 6.25 MG TABLET (FP) PO SCH ×2 (09:40→21:36)
[2021-12-01] MEDS: LISINOPRIL 5 MG TABLET PO SCH (09:40)
[2021-12-01] MEDS: LORATADINE 10 MG TABLET PO SCH (09:41)
[2021-12-01] MEDS: PRENATAL VITAMINS W/ FOLIC ACID TABLET (FP) PO SCH (09:41)
[2021-12-01] MEDS: BUDESONIDE/FORMETEROL FUMARATE 80/4.5 mcg INHALER IH SCH ×2 (09:41→21:58)
[2021-12-01] MEDS: SELENIUM SULFIDE 2.5% LOTION 4 OZ. TP SCH (09:42)
[2021-12-01] MEDS: ACETAMINOPHEN 325 MG TABLET (FP) PO PRN ×2 (09:43→21:38)
[2021-12-01] MEDS: hydrOXYzine PAMOATE 25 MG CAPSULE (FP) PO PRN ×2 (09:43→21:38)
[2021-12-01] MEDS: guaiFENesin 200 MG/10 ML 10 ML UNIT-DOSE CUPS PO PRN (09:55)
[2021-12-01] MEDS ORDERED: SODIUM PHOSPHATE/NA BIPHOS 133 ML ENEMA RC ONE (11:31)
[2021-12-01] MEDS: THIAMINE HCL 100 MG TABLET (FP) PO SCH (21:36)
[2021-12-01] MEDS: TAMSULOSIN HCL 0.4 MG CAP PO SCH (21:36)
[2021-12-01] MEDS: MELATONIN 5 MG TABLETS PO SCH (21:37)
[2021-12-01] MEDS: ALBUTEROL SO4 HFA INHALER IH PRN (21:37)
[2021-12-01] MEDS: LIDOCAINE PATCH REMOVAL MC SCH (21:37)
[2021-12-01] MEDS: LATANOPROST 0.005% OPHTH SOLN 2.5ML BOTTLE OU SCH (21:58)
[2021-12-02] MEDS: DOCUSATE SODIUM 100 MG CAPSULE (FP) PO SCH ×3 (06:06→22:14)
[2021-12-02] MEDS: TIMOLOL 0.5% OPHTHALMIC SOL 5 ML BOTTLE OU SCH ×2 (06:07→17:38)
[2021-12-02] MEDS: CARVEDILOL 6.25 MG TABLET (FP) PO SCH ×2 (09:08→22:14)
[2021-12-02] MEDS: FAMOTIDINE 20 MG TABLET PO SCH ×2 (10:08→22:14)
[2021-12-02] MEDS: APIXABAN 5 MG TABLET PO SCH ×2 (10:08→22:14)
[2021-12-02] MEDS: LORATADINE 10 MG TABLET PO SCH (10:08)
[2021-12-02] MEDS: PRENATAL VITAMINS W/ FOLIC ACID TABLET (FP) PO SCH (10:09)
[2021-12-02] MEDS: LISINOPRIL 5 MG TABLET PO SCH (10:09)
[2021-12-02] MEDS: BUDESONIDE/FORMETEROL FUMARATE 80/4.5 mcg INHALER IH SCH ×2 (10:09→22:14)
[2021-12-02] MEDS: SELENIUM SULFIDE 2.5% LOTION 4 OZ. TP SCH (10:10)
[2021-12-02] MEDS: guaiFENesin 200 MG/10 ML 10 ML UNIT-DOSE CUPS PO PRN ×2 (10:12→22:17)
[2021-12-02] MEDS: hydrOXYzine PAMOATE 25 MG CAPSULE (FP) PO PRN ×2 (10:12→22:17)
[2021-12-02] MEDS: ACETAMINOPHEN 325 MG TABLET (FP) PO PRN ×2 (10:12→22:17)
[2021-12-02] MEDS: LIDOCAINE 5% TOPICAL PATCH TP SCH (11:00)
[2021-12-02] MEDS ORDERED: PT OWN MED DRAWER 7, Y5N ONE ×2 (17:06→19:38)
[2021-12-02] MEDS: MELATONIN 5 MG TABLETS PO SCH (22:14)
[2021-12-02] MEDS: THIAMINE HCL 100 MG TABLET (FP) PO SCH (22:14)
[2021-12-02] MEDS: TAMSULOSIN HCL 0.4 MG CAP PO SCH (22:19)
[2021-12-02] MEDS: LIDOCAINE PATCH REMOVAL MC SCH (22:20)
[2021-12-02] MEDS: LATANOPROST 0.005% OPHTH SOLN 2.5ML BOTTLE OU SCH (22:20)
[2021-12-03] MEDS: TIMOLOL 0.5% OPHTHALMIC SOL 5 ML BOTTLE OU SCH ×2 (07:07→17:30)
[2021-12-03] MEDS: DOCUSATE SODIUM 100 MG CAPSULE (FP) PO SCH ×3 (07:07→21:43)
[2021-12-03] MEDS: CARVEDILOL 6.25 MG TABLET (FP) PO SCH ×2 (10:17→21:43)
[2021-12-03] MEDS: LORATADINE 10 MG TABLET PO SCH (10:17)
[2021-12-03] MEDS: APIXABAN 5 MG TABLET PO SCH ×2 (10:17→21:44)
[2021-12-03] MEDS: FAMOTIDINE 20 MG TABLET PO SCH ×2 (10:17→21:43)
[2021-12-03] MEDS: LIDOCAINE 5% TOPICAL PATCH TP SCH (10:19)
[2021-12-03] MEDS: BUDESONIDE/FORMETEROL FUMARATE 80/4.5 mcg INHALER IH SCH ×2 (10:20→21:46)
[2021-12-03] MEDS: SELENIUM SULFIDE 2.5% LOTION 4 OZ. TP SCH (10:20)
[2021-12-03] MEDS: PRENATAL VITAMINS W/ FOLIC ACID TABLET (FP) PO SCH (10:20)
[2021-12-03] MEDS: LISINOPRIL 5 MG TABLET PO SCH (10:20)
[2021-12-03] MEDS ORDERED: PT OWN MED DRAWER 7, Y5N ONE (17:04)
[2021-12-03] MEDS: guaiFENesin 200 MG/10 ML 10 ML UNIT-DOSE CUPS PO PRN (17:59)
[2021-12-03] MEDS: TAMSULOSIN HCL 0.4 MG CAP PO SCH (21:44)
[2021-12-03] MEDS: LIDOCAINE PATCH REMOVAL MC SCH (21:44)
[2021-12-03] MEDS: THIAMINE HCL 100 MG TABLET (FP) PO SCH (21:44)
[2021-12-03] MEDS: MELATONIN 5 MG TABLETS PO SCH (21:44)
[2021-12-03] MEDS: ACETAMINOPHEN 325 MG TABLET (FP) PO PRN (21:45)
[2021-12-03] MEDS: hydrOXYzine PAMOATE 25 MG CAPSULE (FP) PO PRN (21:46)
[2021-12-03] MEDS: LATANOPROST 0.005% OPHTH SOLN 2.5ML BOTTLE OU SCH (21:47)
[2021-12-04] MEDS: DOCUSATE SODIUM 100 MG CAPSULE (FP) PO SCH ×3 (06:56→21:13)
[2021-12-04] MEDS: TIMOLOL 0.5% OPHTHALMIC SOL 5 ML BOTTLE OU SCH ×2 (06:56→18:35)
[2021-12-04] MEDS: LORATADINE 10 MG TABLET PO SCH (09:53)
[2021-12-04] MEDS: CARVEDILOL 6.25 MG TABLET (FP) PO SCH ×2 (09:53→21:13)
[2021-12-04] MEDS: PRENATAL VITAMINS W/ FOLIC ACID TABLET (FP) PO SCH (09:54)
[2021-12-04] MEDS: BUDESONIDE/FORMETEROL FUMARATE 80/4.5 mcg INHALER IH SCH ×2 (09:54→21:16)
[2021-12-04] MEDS: FAMOTIDINE 20 MG TABLET PO SCH ×2 (09:54→21:13)
[2021-12-04] MEDS: LISINOPRIL 5 MG TABLET PO SCH (09:54)
[2021-12-04] MEDS: APIXABAN 5 MG TABLET PO SCH ×2 (09:54→21:14)
[2021-12-04] MEDS: SELENIUM SULFIDE 2.5% LOTION 4 OZ. TP SCH (09:55)
[2021-12-04] MEDS: hydrOXYzine PAMOATE 25 MG CAPSULE (FP) PO PRN ×2 (09:57→21:15)
[2021-12-04] MEDS: ACETAMINOPHEN 325 MG TABLET (FP) PO PRN ×2 (09:57→21:15)
[2021-12-04] MEDS: LIDOCAINE 5% TOPICAL PATCH TP SCH (09:57)
[2021-12-04] MEDS: MAGNESIUM CITRATE 300 ML BOTTLE PO PRN (09:58)
[2021-12-04] MEDS: MELATONIN 5 MG TABLETS PO SCH (21:13)
[2021-12-04] MEDS: TAMSULOSIN HCL 0.4 MG CAP PO SCH (21:13)
[2021-12-04] MEDS: THIAMINE HCL 100 MG TABLET (FP) PO SCH (21:13)
[2021-12-04] MEDS: LIDOCAINE PATCH REMOVAL MC SCH (21:16)
[2021-12-04] MEDS: LATANOPROST 0.005% OPHTH SOLN 2.5ML BOTTLE OU SCH (21:16)
[2021-12-05] MEDS: TIMOLOL 0.5% OPHTHALMIC SOL 5 ML BOTTLE OU SCH ×2 (06:45→18:45)
[2021-12-05] MEDS: DOCUSATE SODIUM 100 MG CAPSULE (FP) PO SCH ×3 (06:46→21:36)
[2021-12-05] MEDS: LORATADINE 10 MG TABLET PO SCH (10:04)
[2021-12-05] MEDS: LIDOCAINE 5% TOPICAL PATCH TP SCH (10:04)
[2021-12-05] MEDS: CARVEDILOL 6.25 MG TABLET (FP) PO SCH ×2 (10:04→21:36)
[2021-12-05] MEDS: APIXABAN 5 MG TABLET PO SCH ×2 (10:04→21:36)
[2021-12-05] MEDS: BUDESONIDE/FORMETEROL FUMARATE 80/4.5 mcg INHALER IH SCH ×2 (10:05→21:38)
[2021-12-05] MEDS: PRENATAL VITAMINS W/ FOLIC ACID TABLET (FP) PO SCH (10:05)
[2021-12-05] MEDS: FAMOTIDINE 20 MG TABLET PO SCH ×2 (10:05→21:36)
[2021-12-05] MEDS: LISINOPRIL 5 MG TABLET PO SCH (10:07)
[2021-12-05] MEDS: SELENIUM SULFIDE 2.5% LOTION 4 OZ. TP SCH (10:07)
[2021-12-05] MEDS: TAMSULOSIN HCL 0.4 MG CAP PO SCH (21:36)
[2021-12-05] MEDS: THIAMINE HCL 100 MG TABLET (FP) PO SCH (21:36)
[2021-12-05] MEDS: MELATONIN 5 MG TABLETS PO SCH (21:36)
[2021-12-05] MEDS: hydrOXYzine PAMOATE 25 MG CAPSULE (FP) PO PRN (21:37)
[2021-12-05] MEDS: ACETAMINOPHEN 325 MG TABLET (FP) PO PRN (21:37)
[2021-12-05] MEDS: LIDOCAINE PATCH REMOVAL MC SCH (21:38)
[2021-12-05] MEDS: LATANOPROST 0.005% OPHTH SOLN 2.5ML BOTTLE OU SCH (21:38)
[2021-12-06] MEDS: DOCUSATE SODIUM 100 MG CAPSULE (FP) PO SCH ×3 (06:37→21:58)
[2021-12-06] MEDS: TIMOLOL 0.5% OPHTHALMIC SOL 5 ML BOTTLE OU SCH ×2 (06:37→18:15)
[2021-12-06] MEDS: CARVEDILOL 6.25 MG TABLET (FP) PO SCH ×2 (10:13→21:59)
[2021-12-06] MEDS: APIXABAN 5 MG TABLET PO SCH ×2 (10:13→21:58)
[2021-12-06] MEDS: LORATADINE 10 MG TABLET PO SCH (10:13)
[2021-12-06] MEDS: FAMOTIDINE 20 MG TABLET PO SCH ×2 (10:13→21:59)
[2021-12-06] MEDS: LISINOPRIL 5 MG TABLET PO SCH (10:13)
[2021-12-06] MEDS: BUDESONIDE/FORMETEROL FUMARATE 80/4.5 mcg INHALER IH SCH ×2 (10:14→21:56)
[2021-12-06] MEDS: PRENATAL VITAMINS W/ FOLIC ACID TABLET (FP) PO SCH (10:14)
[2021-12-06] MEDS: hydrOXYzine PAMOATE 25 MG CAPSULE (FP) PO PRN ×2 (10:15→21:59)
[2021-12-06] MEDS: LIDOCAINE 5% TOPICAL PATCH TP SCH (10:15)
[2021-12-06] MEDS: ACETAMINOPHEN 325 MG TABLET (FP) PO PRN ×2 (10:16→22:00)
[2021-12-06] MEDS: SELENIUM SULFIDE 2.5% LOTION 4 OZ. TP SCH (10:18)
[2021-12-06] MEDS ORDERED: PT OWN MED DRAWER 7, Y5N ONE ×2 (15:11→18:39)
[2021-12-06] MEDS: LATANOPROST 0.005% OPHTH SOLN 2.5ML BOTTLE OU SCH (21:55)
[2021-12-06] MEDS: ALBUTEROL SO4 HFA INHALER IH PRN (21:56)
[2021-12-06] MEDS: THIAMINE HCL 100 MG TABLET (FP) PO SCH (21:58)
[2021-12-06] MEDS: TAMSULOSIN HCL 0.4 MG CAP PO SCH (21:58)
[2021-12-06] MEDS: POVIDONE-IODINE 10% SOLN 118 ML BOTTLE TP SCH (21:59)
[2021-12-06] MEDS: MELATONIN 5 MG TABLETS PO SCH (21:59)
[2021-12-06] MEDS: guaiFENesin 200 MG/10 ML 10 ML UNIT-DOSE CUPS PO PRN (22:04)
[2021-12-06] MEDS: LIDOCAINE PATCH REMOVAL MC SCH (22:20)
[2021-12-07] MEDS: hydrOXYzine PAMOATE 25 MG CAPSULE (FP) PO PRN ×2 (06:32→21:27)
[2021-12-07] MEDS: DOCUSATE SODIUM 100 MG CAPSULE (FP) PO SCH ×3 (06:32→21:27)
[2021-12-07] MEDS: guaiFENesin 200 MG/10 ML 10 ML UNIT-DOSE CUPS PO PRN (06:32)
[2021-12-07] MEDS: TIMOLOL 0.5% OPHTHALMIC SOL 5 ML BOTTLE OU SCH ×2 (06:33→18:23)
[2021-12-07] MEDS: APIXABAN 5 MG TABLET PO SCH ×2 (10:21→21:30)
[2021-12-07] MEDS: LORATADINE 10 MG TABLET PO SCH (10:21)
[2021-12-07] MEDS: PRENATAL VITAMINS W/ FOLIC ACID TABLET (FP) PO SCH (10:21)
[2021-12-07] MEDS: CARVEDILOL 6.25 MG TABLET (FP) PO SCH ×2 (10:22→21:29)
[2021-12-07] MEDS: FAMOTIDINE 20 MG TABLET PO SCH ×2 (10:22→21:27)
[2021-12-07] MEDS: LIDOCAINE 5% TOPICAL PATCH TP SCH (10:23)
[2021-12-07] MEDS: LISINOPRIL 5 MG TABLET PO SCH (10:23)
[2021-12-07] MEDS: BUDESONIDE/FORMETEROL FUMARATE 80/4.5 mcg INHALER IH SCH ×2 (10:24→21:28)
[2021-12-07] MEDS ORDERED: ONDANSETRON *ODT* 4 MG TABLET SL ONE (18:21)
[2021-12-07] MEDS: TAMSULOSIN HCL 0.4 MG CAP PO SCH (21:27)
[2021-12-07] MEDS: MELATONIN 5 MG TABLETS PO SCH (21:27)
[2021-12-07] MEDS: LIDOCAINE PATCH REMOVAL MC SCH (21:28)
[2021-12-07] MEDS: THIAMINE HCL 100 MG TABLET (FP) PO SCH (21:28)
[2021-12-07] MEDS: ACETAMINOPHEN 325 MG TABLET (FP) PO PRN (21:30)
[2021-12-07] MEDS: LATANOPROST 0.005% OPHTH SOLN 2.5ML BOTTLE OU SCH (21:32)
[2021-12-07] MEDS: POVIDONE-IODINE 10% SOLN 118 ML BOTTLE TP SCH (21:32)
[2021-12-08] MEDS: DOCUSATE SODIUM 100 MG CAPSULE (FP) PO SCH ×3 (06:15→21:23)
[2021-12-08] MEDS: TIMOLOL 0.5% OPHTHALMIC SOL 5 ML BOTTLE OU SCH ×2 (06:16→18:51)
[2021-12-08] MEDS: hydrOXYzine PAMOATE 25 MG CAPSULE (FP) PO PRN ×2 (09:09→21:23)
[2021-12-08] MEDS: APIXABAN 5 MG TABLET PO SCH ×2 (09:09→21:23)
[2021-12-08] MEDS: LORATADINE 10 MG TABLET PO SCH (09:09)
[2021-12-08] MEDS: LIDOCAINE 5% TOPICAL PATCH TP SCH (09:09)
[2021-12-08] MEDS: LISINOPRIL 5 MG TABLET PO SCH (09:09)
[2021-12-08] MEDS: FAMOTIDINE 20 MG TABLET PO SCH ×2 (09:09→21:23)
[2021-12-08] MEDS: CARVEDILOL 6.25 MG TABLET (FP) PO SCH ×2 (09:09→21:23)
[2021-12-08] MEDS: PRENATAL VITAMINS W/ FOLIC ACID TABLET (FP) PO SCH (09:09)
[2021-12-08] MEDS: BUDESONIDE/FORMETEROL FUMARATE 80/4.5 mcg INHALER IH SCH ×2 (09:10→21:25)
[2021-12-08] MEDS: ACETAMINOPHEN 325 MG TABLET (FP) PO PRN ×2 (09:10→21:24)
[2021-12-08] MEDS: COLLOIDAL OATMEAL 1 BAR EACH TP PRN (16:26)
[2021-12-08] MEDS: TAMSULOSIN HCL 0.4 MG CAP PO SCH (21:23)
[2021-12-08] MEDS: MELATONIN 5 MG TABLETS PO SCH (21:23)
[2021-12-08] MEDS: THIAMINE HCL 100 MG TABLET (FP) PO SCH (21:23)
[2021-12-08] MEDS: POVIDONE-IODINE 10% SOLN 118 ML BOTTLE TP SCH (21:23)
[2021-12-08] MEDS: guaiFENesin 200 MG/10 ML 10 ML UNIT-DOSE CUPS PO PRN (21:25)
[2021-12-08] MEDS: LIDOCAINE PATCH REMOVAL MC SCH (21:25)
[2021-12-08] MEDS: LATANOPROST 0.005% OPHTH SOLN 2.5ML BOTTLE OU SCH (21:26)
[2021-12-09] MEDS: DOCUSATE SODIUM 100 MG CAPSULE (FP) PO SCH ×3 (06:48→21:37)
[2021-12-09] MEDS: TIMOLOL 0.5% OPHTHALMIC SOL 5 ML BOTTLE OU SCH ×2 (06:49→19:16)
[2021-12-09] MEDS: ACETAMINOPHEN 325 MG TABLET (FP) PO PRN ×2 (08:51→21:40)
[2021-12-09] MEDS: APIXABAN 5 MG TABLET PO SCH ×2 (10:00→21:38)
[2021-12-09] MEDS: PRENATAL VITAMINS W/ FOLIC ACID TABLET (FP) PO SCH (10:00)
[2021-12-09] MEDS: FAMOTIDINE 20 MG TABLET PO SCH ×2 (10:00→21:38)
[2021-12-09] MEDS: CARVEDILOL 6.25 MG TABLET (FP) PO SCH ×2 (10:00→21:41)
[2021-12-09] MEDS: LORATADINE 10 MG TABLET PO SCH (10:00)
[2021-12-09] MEDS: LIDOCAINE 5% TOPICAL PATCH TP SCH (10:01)
[2021-12-09] MEDS: BUDESONIDE/FORMETEROL FUMARATE 80/4.5 mcg INHALER IH SCH ×2 (10:02→21:39)
[2021-12-09] MEDS: LISINOPRIL 5 MG TABLET PO SCH (10:02)
[2021-12-09] MEDS: hydrOXYzine PAMOATE 25 MG CAPSULE (FP) PO PRN ×2 (10:03→21:40)
[2021-12-09] MEDS: guaiFENesin 200 MG/10 ML 10 ML UNIT-DOSE CUPS PO PRN (10:03)
[2021-12-09] MEDS: THIAMINE HCL 100 MG TABLET (FP) PO SCH (21:37)
[2021-12-09] MEDS: MELATONIN 5 MG TABLETS PO SCH (21:38)
[2021-12-09] MEDS: TAMSULOSIN HCL 0.4 MG CAP PO SCH (21:38)
[2021-12-09] MEDS: LIDOCAINE PATCH REMOVAL MC SCH (21:38)
[2021-12-09] MEDS: LATANOPROST 0.005% OPHTH SOLN 2.5ML BOTTLE OU SCH (21:39)
[2021-12-10] MEDS: DOCUSATE SODIUM 100 MG CAPSULE (FP) PO SCH ×3 (06:47→22:01)
[2021-12-10] MEDS: TIMOLOL 0.5% OPHTHALMIC SOL 5 ML BOTTLE OU SCH ×2 (06:47→17:19)
[2021-12-10] MEDS: LORATADINE 10 MG TABLET PO SCH (09:19)
[2021-12-10] MEDS: FAMOTIDINE 20 MG TABLET PO SCH ×2 (09:19→22:01)
[2021-12-10] MEDS: APIXABAN 5 MG TABLET PO SCH ×2 (09:19→22:19)
[2021-12-10] MEDS: PRENATAL VITAMINS W/ FOLIC ACID TABLET (FP) PO SCH (09:19)
[2021-12-10] MEDS: LIDOCAINE 5% TOPICAL PATCH TP SCH (09:19)
[2021-12-10] MEDS: CARVEDILOL 6.25 MG TABLET (FP) PO SCH ×2 (09:19→22:01)
[2021-12-10] MEDS: BUDESONIDE/FORMETEROL FUMARATE 80/4.5 mcg INHALER IH SCH ×2 (09:20→22:03)
[2021-12-10] MEDS: LISINOPRIL 5 MG TABLET PO SCH (09:20)
[2021-12-10] MEDS: ACETAMINOPHEN 325 MG TABLET (FP) PO PRN ×2 (09:21→22:01)
[2021-12-10] MEDS ORDERED: BENZOCAINE 20 % GEL TUBE MM PRN (15:06)
[2021-12-10] MEDS ORDERED: SODIUM PHOSPHATE/NA BIPHOS 133 ML ENEMA RC ONE (16:30)
[2021-12-10] MEDS: THIAMINE HCL 100 MG TABLET (FP) PO SCH (22:01)
[2021-12-10] MEDS: hydrOXYzine PAMOATE 25 MG CAPSULE (FP) PO PRN (22:01)
[2021-12-10] MEDS: TAMSULOSIN HCL 0.4 MG CAP PO SCH (22:01)
[2021-12-10] MEDS: MELATONIN 5 MG TABLETS PO SCH (22:03)
[2021-12-10] MEDS: LATANOPROST 0.005% OPHTH SOLN 2.5ML BOTTLE OU SCH (22:03)
[2021-12-10] MEDS: LIDOCAINE PATCH REMOVAL MC SCH (22:04)
[2021-12-11] MEDS: DOCUSATE SODIUM 100 MG CAPSULE (FP) PO SCH ×3 (06:29→21:59)
[2021-12-11] MEDS: hydrOXYzine PAMOATE 25 MG CAPSULE (FP) PO PRN ×3 (06:31→22:02)
[2021-12-11] MEDS: ACETAMINOPHEN 325 MG TABLET (FP) PO PRN ×3 (06:31→22:02)
[2021-12-11] MEDS: guaiFENesin 200 MG/10 ML 10 ML UNIT-DOSE CUPS PO PRN (06:33)
[2021-12-11] MEDS: TIMOLOL 0.5% OPHTHALMIC SOL 5 ML BOTTLE OU SCH ×2 (07:00→18:59)
[2021-12-11] MEDS: BUDESONIDE/FORMETEROL FUMARATE 80/4.5 mcg INHALER IH SCH ×2 (10:43→22:00)
[2021-12-11] MEDS: FAMOTIDINE 20 MG TABLET PO SCH ×2 (10:44→21:59)
[2021-12-11] MEDS: LORATADINE 10 MG TABLET PO SCH (10:44)
[2021-12-11] MEDS: PRENATAL VITAMINS W/ FOLIC ACID TABLET (FP) PO SCH (10:44)
[2021-12-11] MEDS: LISINOPRIL 5 MG TABLET PO SCH (10:45)
[2021-12-11] MEDS: CARVEDILOL 6.25 MG TABLET (FP) PO SCH ×2 (10:46→22:05)
[2021-12-11] MEDS: APIXABAN 5 MG TABLET PO SCH ×2 (10:46→22:05)
[2021-12-11] MEDS: LIDOCAINE 5% TOPICAL PATCH TP SCH (10:47)
[2021-12-11] MEDS: TAMSULOSIN HCL 0.4 MG CAP PO SCH (21:59)
[2021-12-11] MEDS: MELATONIN 5 MG TABLETS PO SCH (22:00)
[2021-12-11] MEDS: THIAMINE HCL 100 MG TABLET (FP) PO SCH (22:00)
[2021-12-11] MEDS: LIDOCAINE PATCH REMOVAL MC SCH (22:00)
[2021-12-11] MEDS: LATANOPROST 0.005% OPHTH SOLN 2.5ML BOTTLE OU SCH (22:02)
[2021-12-12] MEDS: DOCUSATE SODIUM 100 MG CAPSULE (FP) PO SCH ×3 (06:56→22:02)
[2021-12-12] MEDS: TIMOLOL 0.5% OPHTHALMIC SOL 5 ML BOTTLE OU SCH ×2 (06:56→18:20)
[2021-12-12] MEDS: PRENATAL VITAMINS W/ FOLIC ACID TABLET (FP) PO SCH (10:28)
[2021-12-12] MEDS: FAMOTIDINE 20 MG TABLET PO SCH ×2 (10:28→22:02)
[2021-12-12] MEDS: LORATADINE 10 MG TABLET PO SCH (10:28)
[2021-12-12] MEDS: LISINOPRIL 5 MG TABLET PO SCH (10:28)
[2021-12-12] MEDS: LIDOCAINE 5% TOPICAL PATCH TP SCH (10:29)
[2021-12-12] MEDS: BUDESONIDE/FORMETEROL FUMARATE 80/4.5 mcg INHALER IH SCH ×2 (10:29→22:11)
[2021-12-12] MEDS: CARVEDILOL 6.25 MG TABLET (FP) PO SCH ×2 (10:30→22:02)
[2021-12-12] MEDS: APIXABAN 5 MG TABLET PO SCH ×2 (10:31→22:02)
[2021-12-12] MEDS: ACETAMINOPHEN 325 MG TABLET (FP) PO PRN ×2 (10:32→22:04)
[2021-12-12] MEDS: hydrOXYzine PAMOATE 25 MG CAPSULE (FP) PO PRN ×2 (10:32→22:02)
[2021-12-12] MEDS: THIAMINE HCL 100 MG TABLET (FP) PO SCH (22:02)
[2021-12-12] MEDS: TAMSULOSIN HCL 0.4 MG CAP PO SCH (22:02)
[2021-12-12] MEDS: guaiFENesin 200 MG/10 ML 10 ML UNIT-DOSE CUPS PO PRN (22:05)
[2021-12-12] MEDS: LATANOPROST 0.005% OPHTH SOLN 2.5ML BOTTLE OU SCH (22:06)
[2021-12-12] MEDS: MELATONIN 5 MG TABLETS PO SCH (22:10)
[2021-12-12] MEDS: LIDOCAINE PATCH REMOVAL MC SCH (22:10)
[2021-12-13] MEDS: TIMOLOL 0.5% OPHTHALMIC SOL 5 ML BOTTLE OU SCH ×2 (06:38→17:35)
[2021-12-13] MEDS: DOCUSATE SODIUM 100 MG CAPSULE (FP) PO SCH ×3 (06:38→21:16)
[2021-12-13] MEDS: CARVEDILOL 6.25 MG TABLET (FP) PO SCH ×2 (10:42→21:21)
[2021-12-13] MEDS: APIXABAN 5 MG TABLET PO SCH ×2 (10:42→21:21)
[2021-12-13] MEDS: BUDESONIDE/FORMETEROL FUMARATE 80/4.5 mcg INHALER IH SCH ×2 (10:42→21:16)
[2021-12-13] MEDS: FAMOTIDINE 20 MG TABLET PO SCH ×2 (10:42→21:16)
[2021-12-13] MEDS: LORATADINE 10 MG TABLET PO SCH (10:43)
[2021-12-13] MEDS: PRENATAL VITAMINS W/ FOLIC ACID TABLET (FP) PO SCH (10:43)
[2021-12-13] MEDS: LISINOPRIL 5 MG TABLET PO SCH (10:44)
[2021-12-13] MEDS: ACETAMINOPHEN 325 MG TABLET (FP) PO PRN ×2 (10:44→21:14)
[2021-12-13] MEDS: LIDOCAINE 5% TOPICAL PATCH TP SCH (10:44)
[2021-12-13] MEDS ORDERED: AMMONIUM LACTATE 12% LOTION 225 GM BOTTLE TP PRN (14:13)
[2021-12-13] MEDS ORDERED: KETOCONAZOLE 2 % SHAMPOO 120 ML BOTTLE TP SCH (14:15)
[2021-12-13] MEDS: hydrOXYzine PAMOATE 25 MG CAPSULE (FP) PO PRN (21:16)
[2021-12-13] MEDS: TAMSULOSIN HCL 0.4 MG CAP PO SCH (21:16)
[2021-12-13] MEDS: MELATONIN 5 MG TABLETS PO SCH (21:16)
[2021-12-13] MEDS: THIAMINE HCL 100 MG TABLET (FP) PO SCH (21:16)
[2021-12-13] MEDS: LIDOCAINE PATCH REMOVAL MC SCH (21:17)
[2021-12-13] MEDS: LATANOPROST 0.005% OPHTH SOLN 2.5ML BOTTLE OU SCH (21:38)
[2021-12-14] MEDS: DOCUSATE SODIUM 100 MG CAPSULE (FP) PO SCH ×3 (06:32→21:23)
[2021-12-14] MEDS: TIMOLOL 0.5% OPHTHALMIC SOL 5 ML BOTTLE OU SCH ×2 (06:33→20:14)
[2021-12-14] MEDS: BUDESONIDE/FORMETEROL FUMARATE 80/4.5 mcg INHALER IH SCH ×2 (10:42→21:23)
[2021-12-14] MEDS: FAMOTIDINE 20 MG TABLET PO SCH ×2 (10:42→21:24)
[2021-12-14] MEDS: PRENATAL VITAMINS W/ FOLIC ACID TABLET (FP) PO SCH (10:42)
[2021-12-14] MEDS: LORATADINE 10 MG TABLET PO SCH (10:42)
[2021-12-14] MEDS: APIXABAN 5 MG TABLET PO SCH ×2 (10:43→21:24)
[2021-12-14] MEDS: hydrOXYzine PAMOATE 25 MG CAPSULE (FP) PO PRN (10:43)
[2021-12-14] MEDS: LISINOPRIL 5 MG TABLET PO SCH (10:43)
[2021-12-14] MEDS: LIDOCAINE 5% TOPICAL PATCH TP SCH (10:44)
[2021-12-14] MEDS: CARVEDILOL 6.25 MG TABLET (FP) PO SCH ×2 (10:44→21:24)
[2021-12-14] MEDS: ACETAMINOPHEN 325 MG TABLET (FP) PO PRN (10:46)
[2021-12-14] MEDS: TAMSULOSIN HCL 0.4 MG CAP PO SCH (21:24)
[2021-12-14] MEDS: MELATONIN 5 MG TABLETS PO SCH (21:24)
[2021-12-14] MEDS: THIAMINE HCL 100 MG TABLET (FP) PO SCH (21:24)
[2021-12-14] MEDS: LATANOPROST 0.005% OPHTH SOLN 2.5ML BOTTLE OU SCH (21:25)
[2021-12-14] MEDS: LIDOCAINE PATCH REMOVAL MC SCH (21:25)
[2021-12-15] MEDS: DOCUSATE SODIUM 100 MG CAPSULE (FP) PO SCH ×3 (06:20→21:41)
[2021-12-15] MEDS: TIMOLOL 0.5% OPHTHALMIC SOL 5 ML BOTTLE OU SCH ×2 (06:20→17:39)
[2021-12-15] MEDS: PRENATAL VITAMINS W/ FOLIC ACID TABLET (FP) PO SCH (10:39)
[2021-12-15] MEDS: CARVEDILOL 6.25 MG TABLET (FP) PO SCH ×2 (10:40→21:40)
[2021-12-15] MEDS: FAMOTIDINE 20 MG TABLET PO SCH ×2 (10:40→21:40)
[2021-12-15] MEDS: ACETAMINOPHEN 325 MG TABLET (FP) PO PRN ×2 (10:40→21:41)
[2021-12-15] MEDS: LORATADINE 10 MG TABLET PO SCH (10:41)
[2021-12-15] MEDS: APIXABAN 5 MG TABLET PO SCH ×2 (10:41→21:41)
[2021-12-15] MEDS: LISINOPRIL 5 MG TABLET PO SCH (10:41)
[2021-12-15] MEDS: BUDESONIDE/FORMETEROL FUMARATE 80/4.5 mcg INHALER IH SCH ×2 (10:41→21:40)
[2021-12-15] MEDS: SELENIUM SULFIDE 2.5% LOTION 4 OZ. TP SCH (10:42)
[2021-12-15] MEDS: LIDOCAINE 5% TOPICAL PATCH TP SCH (10:42)
[2021-12-15] MEDS: hydrOXYzine PAMOATE 25 MG CAPSULE (FP) PO PRN (10:44)
[2021-12-15] MEDS ORDERED: CLINDAMYCIN HCL 150 MG CAPSULE (FP) PO ONE (11:16)
[2021-12-15] MEDS: CLINDAMYCIN HCL 150 MG CAPSULE (FP) PO SCH ×2 (15:01→21:41)
[2021-12-15] MEDS: THIAMINE HCL 100 MG TABLET (FP) PO SCH (21:40)
[2021-12-15] MEDS: TAMSULOSIN HCL 0.4 MG CAP PO SCH (21:41)
[2021-12-15] MEDS: MELATONIN 5 MG TABLETS PO SCH (21:42)
[2021-12-15] MEDS: LATANOPROST 0.005% OPHTH SOLN 2.5ML BOTTLE OU SCH (21:42)
[2021-12-15] MEDS: LIDOCAINE PATCH REMOVAL MC SCH (21:42)
[2021-12-16] MEDS: CLINDAMYCIN HCL 150 MG CAPSULE (FP) PO SCH ×3 (06:48→21:18)
[2021-12-16] MEDS: ACETAMINOPHEN 325 MG TABLET (FP) PO PRN (06:49)
[2021-12-16] MEDS: DOCUSATE SODIUM 100 MG CAPSULE (FP) PO SCH ×3 (06:49→21:18)
[2021-12-16] MEDS: TIMOLOL 0.5% OPHTHALMIC SOL 5 ML BOTTLE OU SCH ×2 (06:50→19:55)
[2021-12-16] MEDS: PRENATAL VITAMINS W/ FOLIC ACID TABLET (FP) PO SCH (11:07)
[2021-12-16] MEDS: LISINOPRIL 5 MG TABLET PO SCH (11:08)
[2021-12-16] MEDS: LORATADINE 10 MG TABLET PO SCH (11:08)
[2021-12-16] MEDS: BUDESONIDE/FORMETEROL FUMARATE 80/4.5 mcg INHALER IH SCH ×2 (11:08→21:18)
[2021-12-16] MEDS: FAMOTIDINE 20 MG TABLET PO SCH ×2 (11:09→21:18)
[2021-12-16] MEDS: LIDOCAINE 5% TOPICAL PATCH TP SCH (11:10)
[2021-12-16] MEDS: APIXABAN 5 MG TABLET PO SCH ×2 (11:10→21:19)
[2021-12-16] MEDS: CARVEDILOL 6.25 MG TABLET (FP) PO SCH ×2 (11:10→21:19)
[2021-12-16] MEDS: hydrOXYzine PAMOATE 25 MG CAPSULE (FP) PO PRN (11:11)
[2021-12-16] MEDS: SELENIUM SULFIDE 2.5% LOTION 4 OZ. TP SCH (11:11)
[2021-12-16] MEDS: MAGNESIUM CITRATE 300 ML BOTTLE PO PRN (12:05)
[2021-12-16] MEDS: THIAMINE HCL 100 MG TABLET (FP) PO SCH (21:18)
[2021-12-16] MEDS: TAMSULOSIN HCL 0.4 MG CAP PO SCH (21:18)
[2021-12-16] MEDS: MELATONIN 5 MG TABLETS PO SCH (21:18)
[2021-12-16] MEDS: LATANOPROST 0.005% OPHTH SOLN 2.5ML BOTTLE OU SCH (21:20)
[2021-12-16] MEDS: LIDOCAINE PATCH REMOVAL MC SCH (21:20)
[2021-12-17] MEDS: TIMOLOL 0.5% OPHTHALMIC SOL 5 ML BOTTLE OU SCH ×2 (06:45→18:02)
[2021-12-17] MEDS: CLINDAMYCIN HCL 150 MG CAPSULE (FP) PO SCH ×3 (06:46→21:22)
[2021-12-17] MEDS: DOCUSATE SODIUM 100 MG CAPSULE (FP) PO SCH ×3 (06:47→21:21)
[2021-12-17] MEDS: FAMOTIDINE 20 MG TABLET PO SCH ×2 (10:24→21:21)
[2021-12-17] MEDS: LORATADINE 10 MG TABLET PO SCH (10:24)
[2021-12-17] MEDS: PRENATAL VITAMINS W/ FOLIC ACID TABLET (FP) PO SCH (10:24)
[2021-12-17] MEDS: BUDESONIDE/FORMETEROL FUMARATE 80/4.5 mcg INHALER IH SCH ×2 (10:24→21:24)
[2021-12-17] MEDS: LIDOCAINE 5% TOPICAL PATCH TP SCH (10:25)
[2021-12-17] MEDS: CARVEDILOL 6.25 MG TABLET (FP) PO SCH ×2 (10:25→23:03)
[2021-12-17] MEDS: LISINOPRIL 5 MG TABLET PO SCH (10:26)
[2021-12-17] MEDS: SELENIUM SULFIDE 2.5% LOTION 4 OZ. TP SCH (10:26)
[2021-12-17] MEDS: APIXABAN 5 MG TABLET PO SCH ×2 (10:26→21:21)
[2021-12-17] MEDS: ACETAMINOPHEN 325 MG TABLET (FP) PO PRN ×2 (10:28→21:25)
[2021-12-17] MEDS: hydrOXYzine PAMOATE 25 MG CAPSULE (FP) PO PRN ×2 (10:28→21:21)
[2021-12-17] MEDS: TAMSULOSIN HCL 0.4 MG CAP PO SCH (21:21)
[2021-12-17] MEDS: MELATONIN 5 MG TABLETS PO SCH (21:22)
[2021-12-17] MEDS: THIAMINE HCL 100 MG TABLET (FP) PO SCH (21:22)
[2021-12-17] MEDS: LIDOCAINE PATCH REMOVAL MC SCH (21:23)
[2021-12-17] MEDS: LATANOPROST 0.005% OPHTH SOLN 2.5ML BOTTLE OU SCH (21:24)
[2021-12-18] MEDS: DOCUSATE SODIUM 100 MG CAPSULE (FP) PO SCH ×3 (06:37→22:05)
[2021-12-18] MEDS: CLINDAMYCIN HCL 150 MG CAPSULE (FP) PO SCH ×3 (06:37→22:05)
[2021-12-18] MEDS: ACETAMINOPHEN 325 MG TABLET (FP) PO PRN ×2 (06:38→22:06)
[2021-12-18] MEDS: TIMOLOL 0.5% OPHTHALMIC SOL 5 ML BOTTLE OU SCH ×2 (06:39→18:09)
[2021-12-18] MEDS: LORATADINE 10 MG TABLET PO SCH (10:04)
[2021-12-18] MEDS: APIXABAN 5 MG TABLET PO SCH ×2 (10:04→22:05)
[2021-12-18] MEDS: CARVEDILOL 6.25 MG TABLET (FP) PO SCH ×2 (10:04→22:05)
[2021-12-18] MEDS: FAMOTIDINE 20 MG TABLET PO SCH ×2 (10:04→22:05)
[2021-12-18] MEDS: PRENATAL VITAMINS W/ FOLIC ACID TABLET (FP) PO SCH (10:04)
[2021-12-18] MEDS: LIDOCAINE 5% TOPICAL PATCH TP SCH (10:05)
[2021-12-18] MEDS: BUDESONIDE/FORMETEROL FUMARATE 80/4.5 mcg INHALER IH SCH ×2 (10:05→22:04)
[2021-12-18] MEDS: LISINOPRIL 5 MG TABLET PO SCH (10:05)
[2021-12-18] MEDS: SELENIUM SULFIDE 2.5% LOTION 4 OZ. TP SCH (10:05)
[2021-12-18] MEDS: hydrOXYzine PAMOATE 25 MG CAPSULE (FP) PO PRN ×2 (10:07→22:05)
[2021-12-18] MEDS: LIDOCAINE PATCH REMOVAL MC SCH (22:05)
[2021-12-18] MEDS: THIAMINE HCL 100 MG TABLET (FP) PO SCH (22:05)
[2021-12-18] MEDS: TAMSULOSIN HCL 0.4 MG CAP PO SCH (22:05)
[2021-12-18] MEDS: MELATONIN 5 MG TABLETS PO SCH (22:05)
[2021-12-18] MEDS: LATANOPROST 0.005% OPHTH SOLN 2.5ML BOTTLE OU SCH (22:08)
[2021-12-19] MEDS: DOCUSATE SODIUM 100 MG CAPSULE (FP) PO SCH ×3 (07:25→21:41)
[2021-12-19] MEDS: TIMOLOL 0.5% OPHTHALMIC SOL 5 ML BOTTLE OU SCH ×2 (07:25→18:09)
[2021-12-19] MEDS: CLINDAMYCIN HCL 150 MG CAPSULE (FP) PO SCH ×3 (07:25→21:41)
[2021-12-19] MEDS: BUDESONIDE/FORMETEROL FUMARATE 80/4.5 mcg INHALER IH SCH ×2 (10:13→21:41)
[2021-12-19] MEDS: LORATADINE 10 MG TABLET PO SCH (10:14)
[2021-12-19] MEDS: PRENATAL VITAMINS W/ FOLIC ACID TABLET (FP) PO SCH (10:14)
[2021-12-19] MEDS: LIDOCAINE 5% TOPICAL PATCH TP SCH (10:14)
[2021-12-19] MEDS: APIXABAN 5 MG TABLET PO SCH ×2 (10:15→21:46)
[2021-12-19] MEDS: ACETAMINOPHEN 325 MG TABLET (FP) PO PRN ×2 (10:16→21:42)
[2021-12-19] MEDS: hydrOXYzine PAMOATE 25 MG CAPSULE (FP) PO PRN ×2 (10:16→21:41)
[2021-12-19] MEDS: LISINOPRIL 5 MG TABLET PO SCH (10:20)
[2021-12-19] MEDS: FAMOTIDINE 20 MG TABLET PO SCH ×2 (10:20→21:41)
[2021-12-19] MEDS: SELENIUM SULFIDE 2.5% LOTION 4 OZ. TP SCH (10:20)
[2021-12-19] MEDS: CARVEDILOL 6.25 MG TABLET (FP) PO SCH ×2 (10:20→21:46)
[2021-12-19] MEDS: TAMSULOSIN HCL 0.4 MG CAP PO SCH (21:41)
[2021-12-19] MEDS: THIAMINE HCL 100 MG TABLET (FP) PO SCH (21:41)
[2021-12-19] MEDS: MELATONIN 5 MG TABLETS PO SCH (21:42)
[2021-12-19] MEDS: LATANOPROST 0.005% OPHTH SOLN 2.5ML BOTTLE OU SCH (21:46)
[2021-12-19] MEDS: LIDOCAINE PATCH REMOVAL MC SCH (21:46)
[2021-12-20] MEDS: ACETAMINOPHEN 325 MG TABLET (FP) PO PRN (06:50)
[2021-12-20] MEDS: hydrOXYzine PAMOATE 25 MG CAPSULE (FP) PO PRN ×2 (06:52→10:36)
[2021-12-20] MEDS: DOCUSATE SODIUM 100 MG CAPSULE (FP) PO SCH ×2 (06:53→15:24)
[2021-12-20] MEDS: CLINDAMYCIN HCL 150 MG CAPSULE (FP) PO SCH ×2 (07:35→15:24)
[2021-12-20] MEDS: TIMOLOL 0.5% OPHTHALMIC SOL 5 ML BOTTLE OU SCH (07:38)
[2021-12-20 09:37] VITALS: BP 139/89; PULSE 80; TEMP 97.3
[2021-12-20] MEDS: PRENATAL VITAMINS W/ FOLIC ACID TABLET (FP) PO SCH (10:36)
[2021-12-20] MEDS: LISINOPRIL 5 MG TABLET PO SCH (10:37)
[2021-12-20] MEDS: CARVEDILOL 6.25 MG TABLET (FP) PO SCH (10:38)
[2021-12-20] MEDS: FAMOTIDINE 20 MG TABLET PO SCH (10:38)
[2021-12-20] MEDS: LORATADINE 10 MG TABLET PO SCH (10:38)
[2021-12-20] MEDS: APIXABAN 5 MG TABLET PO SCH (10:39)
[2021-12-20] MEDS: LIDOCAINE 5% TOPICAL PATCH TP SCH (10:40)
[2021-12-20] MEDS: SELENIUM SULFIDE 2.5% LOTION 4 OZ. TP SCH (10:40)
[2021-12-20] MEDS: BUDESONIDE/FORMETEROL FUMARATE 80/4.5 mcg INHALER IH SCH (10:40)
== END 2021-12-20 16:00 | disposition home or self-care (01) | DRG 772 ==
LOC: YASAS 14:14 → Y5N 14:18 → Y3E 14:23 → Y3W 12-01 14:28 → Y3E 12-10 15:27 → Y5N 12-10 16:10
PROVIDERS: ADMIT Allergy & Immunology; ATTEND Allergy & Immunology
PROC: HZ42ZZZ Group Counseling for Substance Abuse Treatment, Cognitive-Behavioral (ICD-10-PCS; principal; 2021-11-22)
DX: F10.20 Alcohol dependence, uncomplicated (principal); F14.20 Cocaine dependence, uncomplicated; F12.20 Cannabis dependence, uncomplicated; F17.210 Nicotine dependence, cigarettes, uncomplicated; J43.9 Emphysema, unspecified; L21.8 Other seborrheic dermatitis; K21.9 Gastro-esophageal reflux disease without esophagitis; K59.09 Other constipation; K08.89 Other specified disorders of teeth and supporting structures; H40.2231 Chronic angle-closure glaucoma, bilateral, mild stage; B35.3 Tinea pedis; B35.1 Tinea unguium; Z86.2 Personal history of diseases of the blood and blood-forming organs and certain disorders involving the immune mechanism; Z99.89 Dependence on other enabling machines and devices; Z88.0 Allergy status to penicillin; Z88.6 Allergy status to analgesic agent; Z88.8 Allergy status to other drugs, medicaments and biological substances
CPT/HCPCS: 71046-TC-FY; 71101-TC-LT-FY; C9803; Q0162; U0003; U0005

== ENCOUNTER 2022-01-30 21:42 | Inpatient (IN) | payer OTHER ==
[2022-01-31 00:03] VITALS: BMI 31.8
[2022-01-31] MEDS ORDERED: ACETAMINOPHEN 325 MG TABLET (FP) PO PRN (00:54)
[2022-01-31] MEDS ORDERED: ONDANSETRON *ODT* 4 MG TABLET SL PRN (00:54)
[2022-01-31] MEDS ORDERED: MENTHOL/PHENOL 1 EACH UD MM PRN (00:54)
[2022-01-31] MEDS ORDERED: NICOTINE POLACRILEX 2 MG GUM BUC PRN (00:54)
[2022-01-31] MEDS ORDERED: MAG HYDROX/AL HYDROX/SIMETH 30 ML UNIT-DOSE CUP PO PRN (00:54)
[2022-01-31] MEDS ORDERED: LOPERAMIDE HCL 2 MG CAPSULE PO PRN (00:54)
[2022-01-31] MEDS ORDERED: MAGNESIUM HYDROX 2400MG/30ML ORAL SUSPENSION 30 ML CUP PO PRN (00:54)
[2022-01-31] MEDS ORDERED: MAGNESIUM CITRATE 300 ML BOTTLE PO PRN (00:54)
[2022-01-31] MEDS ORDERED: chlordiazePOXIDE HCL 25 MG CAPSULE PO PRN (00:59)
[2022-01-31] MEDS: chlordiazePOXIDE HCL 25 MG CAPSULE PO SCH ×4 (06:30→22:52)
[2022-01-31] MEDS ORDERED: COLLOIDAL OATMEAL 1 BAR EACH TP PRN (10:30)
[2022-01-31] MEDS: PRENATAL VITAMINS W/ FOLIC ACID TABLET (FP) PO SCH (11:11)
[2022-01-31] MEDS: BUDESONIDE/FORMETEROL FUMARATE 80/4.5 mcg INHALER IH SCH ×2 (11:11→22:53)
[2022-01-31] MEDS: NICOTINE 21 MG/24 HOURS TOPICAL PATCH TD SCH (11:12)
[2022-01-31] MEDS: FAMOTIDINE 20 MG TABLET PO SCH ×2 (11:12→22:52)
[2022-01-31] MEDS: METHOCARBAMOL 500 MG TABLET PO PRN ×2 (11:13→18:17)
[2022-01-31] MEDS: ACETAMINOPHEN 325 MG TABLET (FP) PO PRN (11:24)
[2022-01-31] MEDS: TIMOLOL 0.5% OPHTHALMIC SOL 5 ML BOTTLE OU SCH ×2 (11:53→22:56)
[2022-01-31] MEDS: ALBUTEROL SO4 HFA INHALER IH PRN (18:35)
[2022-01-31] MEDS ORDERED: MELATONIN 5 MG TABLETS PO SCH (22:00)
[2022-01-31] MEDS: CARVEDILOL 6.25 MG TABLET (FP) PO SCH (22:52)
[2022-01-31] MEDS: OLANZapine 10 MG TABLET PO SCH (22:52)
[2022-01-31] MEDS: traZODone HCL 100 MG TABLET (FP) PO SCH (22:52)
[2022-01-31] MEDS: TAMSULOSIN HCL 0.4 MG CAP PO SCH (22:52)
[2022-01-31] MEDS: LATANOPROST 0.005% OPHTH SOLN 2.5ML BOTTLE OU SCH (22:55)
[2022-01-31] MEDS: THIAMINE HCL 100 MG TABLET (FP) PO SCH (22:55)
[2022-02-01] MEDS: chlordiazePOXIDE HCL 25 MG CAPSULE PO SCH ×4 (05:38→22:35)
[2022-02-01] MEDS: FAMOTIDINE 20 MG TABLET PO SCH ×2 (10:45→22:35)
[2022-02-01] MEDS: PRENATAL VITAMINS W/ FOLIC ACID TABLET (FP) PO SCH (10:45)
[2022-02-01] MEDS: CARVEDILOL 6.25 MG TABLET (FP) PO SCH ×2 (10:45→22:34)
[2022-02-01] MEDS: METHOCARBAMOL 500 MG TABLET PO PRN ×2 (10:46→22:35)
[2022-02-01] MEDS: NICOTINE 21 MG/24 HOURS TOPICAL PATCH TD SCH (10:46)
[2022-02-01] MEDS: BUDESONIDE/FORMETEROL FUMARATE 80/4.5 mcg INHALER IH SCH ×2 (10:46→22:38)
[2022-02-01] MEDS: TIMOLOL 0.5% OPHTHALMIC SOL 5 ML BOTTLE OU SCH ×2 (10:46→22:38)
[2022-02-01 10:48] LABS: HEMATOCRIT 34.7 % (35.4-49); HEMOGLOBIN 11.6 GM/dL (11.7-16.9); MCH 27.8 pg (25.7-33.7); MCHC 33.3 g/dl (32.0-35.9); MEAN CELL VOLUME 83.6 fl (80-96); MEAN PLT VOLUME 8.3 fl (7.5-11.1); PLATELET COUNT 287 10^3/uL (134-434); RBC 4.15 M/mm3 (4.00-5.60); RDW 15.9 % (11.9-15.9); WHITE BLOOD COUNT 5.1 K/mm3 (4.0-10.0)
[2022-02-01 10:51] LABS: ALBUMIN 3.4 g/dl (3.4-5.0); BLOOD UREA NITROGEN 10.4 mg/dL (7-18); CALCIUM 8.9 mg/dL (8.5-10.1)
[2022-02-01 10:54] LABS: CREATININE 1.1 mg/dL (0.55-1.3)
[2022-02-01 10:56] LABS: BILIRUBIN,TOTAL 0.8 mg/dL (0.2-1); TOT PROT 6.7 g/dl (6.4-8.2)
[2022-02-01] MEDS: ACETAMINOPHEN 325 MG TABLET (FP) PO PRN (18:01)
[2022-02-01] MEDS: THIAMINE HCL 100 MG TABLET (FP) PO SCH (22:34)
[2022-02-01] MEDS: OLANZapine 10 MG TABLET PO SCH (22:34)
[2022-02-01] MEDS: traZODone HCL 100 MG TABLET (FP) PO SCH (22:35)
[2022-02-01] MEDS: TAMSULOSIN HCL 0.4 MG CAP PO SCH (22:35)
[2022-02-01] MEDS: LATANOPROST 0.005% OPHTH SOLN 2.5ML BOTTLE OU SCH (22:38)
[2022-02-02] MEDS ORDERED: chlordiazePOXIDE HCL 10 MG CAPSULE PO PRN
[2022-02-02 06:08] LABS: SARS-CoV-2 NAA Not Detected (Not Detected)
[2022-02-02] MEDS: chlordiazePOXIDE HCL 10 MG CAPSULE PO SCH ×4 (06:22→22:36)
[2022-02-02] MEDS: PRENATAL VITAMINS W/ FOLIC ACID TABLET (FP) PO SCH (10:50)
[2022-02-02] MEDS: BUDESONIDE/FORMETEROL FUMARATE 80/4.5 mcg INHALER IH SCH ×2 (10:51→22:38)
[2022-02-02] MEDS: TIMOLOL 0.5% OPHTHALMIC SOL 5 ML BOTTLE OU SCH ×2 (10:51→22:36)
[2022-02-02] MEDS: FAMOTIDINE 20 MG TABLET PO SCH ×2 (10:51→22:35)
[2022-02-02] MEDS: NICOTINE 21 MG/24 HOURS TOPICAL PATCH TD SCH (10:52)
[2022-02-02] MEDS: CARVEDILOL 6.25 MG TABLET (FP) PO SCH ×2 (10:52→22:35)
[2022-02-02] MEDS: METHOCARBAMOL 500 MG TABLET PO PRN ×2 (10:52→18:04)
[2022-02-02] MEDS: guaiFENesin 200 MG/10 ML 10 ML UNIT-DOSE CUPS PO PRN ×2 (12:19→18:04)
[2022-02-02] MEDS: hydrOXYzine PAMOATE 25 MG CAPSULE (FP) PO PRN (18:05)
[2022-02-02] MEDS: ALBUTEROL SO4 HFA INHALER IH PRN (18:30)
[2022-02-02] MEDS: OLANZapine 10 MG TABLET PO SCH (22:35)
[2022-02-02] MEDS: TAMSULOSIN HCL 0.4 MG CAP PO SCH (22:35)
[2022-02-02] MEDS: THIAMINE HCL 100 MG TABLET (FP) PO SCH (22:35)
[2022-02-02] MEDS: traZODone HCL 100 MG TABLET (FP) PO SCH (22:35)
[2022-02-02] MEDS: LATANOPROST 0.005% OPHTH SOLN 2.5ML BOTTLE OU SCH (22:38)
[2022-02-03] MEDS: chlordiazePOXIDE HCL 10 MG CAPSULE PO SCH ×2 (06:26→19:08)
[2022-02-03] MEDS ORDERED: COLLOIDAL OATMEAL 1 BAR EACH TP PRN (09:59)
[2022-02-03] MEDS: FAMOTIDINE 20 MG TABLET PO SCH ×2 (10:40→23:05)
[2022-02-03] MEDS: CARVEDILOL 6.25 MG TABLET (FP) PO SCH ×2 (10:40→23:06)
[2022-02-03] MEDS: hydrOXYzine PAMOATE 25 MG CAPSULE (FP) PO PRN (10:40)
[2022-02-03] MEDS: PRENATAL VITAMINS W/ FOLIC ACID TABLET (FP) PO SCH (10:40)
[2022-02-03] MEDS: BUDESONIDE/FORMETEROL FUMARATE 80/4.5 mcg INHALER IH SCH ×2 (10:40→23:07)
[2022-02-03] MEDS: METHOCARBAMOL 500 MG TABLET PO PRN (10:40)
[2022-02-03] MEDS: NICOTINE 21 MG/24 HOURS TOPICAL PATCH TD SCH (10:40)
[2022-02-03] MEDS: TIMOLOL 0.5% OPHTHALMIC SOL 5 ML BOTTLE OU SCH ×2 (10:41→23:07)
[2022-02-03] MEDS: ACETAMINOPHEN 325 MG TABLET (FP) PO PRN (10:42)
[2022-02-03] MEDS: guaiFENesin 200 MG/10 ML 10 ML UNIT-DOSE CUPS PO PRN ×2 (15:33→23:08)
[2022-02-03] MEDS: TAMSULOSIN HCL 0.4 MG CAP PO SCH (23:06)
[2022-02-03] MEDS: THIAMINE HCL 100 MG TABLET (FP) PO SCH (23:06)
[2022-02-03] MEDS: OLANZapine 10 MG TABLET PO SCH (23:06)
[2022-02-03] MEDS: traZODone HCL 100 MG TABLET (FP) PO SCH (23:06)
[2022-02-03] MEDS: LATANOPROST 0.005% OPHTH SOLN 2.5ML BOTTLE OU SCH (23:08)
[2022-02-04] MEDS ORDERED: ALBUTEROL SO4 HFA INHALER IH ONE (04:56)
[2022-02-04] MEDS: ALBUTEROL SO4 HFA INHALER IH PRN (04:58)
[2022-02-04] MEDS: guaiFENesin 200 MG/10 ML 10 ML UNIT-DOSE CUPS PO PRN ×2 (04:59→11:15)
[2022-02-04] MEDS ORDERED: chlordiazePOXIDE HCL 10 MG CAPSULE PO ONE (05:00)
[2022-02-04] MEDS: FAMOTIDINE 20 MG TABLET PO SCH (11:04)
[2022-02-04] MEDS: PRENATAL VITAMINS W/ FOLIC ACID TABLET (FP) PO SCH (11:04)
[2022-02-04] MEDS: TIMOLOL 0.5% OPHTHALMIC SOL 5 ML BOTTLE OU SCH (11:05)
[2022-02-04] MEDS: CARVEDILOL 6.25 MG TABLET (FP) PO SCH (11:05)
[2022-02-04] MEDS: BUDESONIDE/FORMETEROL FUMARATE 80/4.5 mcg INHALER IH SCH (11:07)
[2022-02-04] MEDS: NICOTINE 21 MG/24 HOURS TOPICAL PATCH TD SCH (11:21)
[2022-02-04] MEDS: METHOCARBAMOL 500 MG TABLET PO PRN (11:21)
[2022-02-04 12:42] VITALS: BP 109/63; PULSE 76; TEMP 97.5
== END 2022-02-04 13:34 | disposition other institution (70) | DRG 774 ==
LOC: YASAS 21:42 → Y6N 01-31 00:18
PROVIDERS: ADMIT Allergy & Immunology; ATTEND Allergy & Immunology
PROC: HZ2ZZZZ Detoxification Services for Substance Abuse Treatment (ICD-10-PCS; principal; 2022-01-31)
DX: F10.230 Alcohol dependence with withdrawal, uncomplicated (principal); F14.20 Cocaine dependence, uncomplicated; F17.210 Nicotine dependence, cigarettes, uncomplicated; F20.0 Paranoid schizophrenia; F10.280 Alcohol dependence with alcohol-induced anxiety disorder; F10.282 Alcohol dependence with alcohol-induced sleep disorder; H40.2231 Chronic angle-closure glaucoma, bilateral, mild stage; J43.9 Emphysema, unspecified; M54.50 Low back pain, unspecified; G89.29 Other chronic pain; N40.0 Benign prostatic hyperplasia without lower urinary tract symptoms; Z91.410 Personal history of adult physical and sexual abuse; Z99.89 Dependence on other enabling machines and devices; Z56.0 Unemployment, unspecified; Z59.00 Homelessness unspecified; Z88.0 Allergy status to penicillin; Z88.8 Allergy status to other drugs, medicaments and biological substances; Z91.018 Allergy to other foods
CPT/HCPCS: 36415; 80053; 82962; 85027; 86780; 93005; 93010; C9803; U0003; U0005

== ENCOUNTER 2022-02-04 13:52 | Inpatient (IN) | payer OTHER ==
[2022-02-04] MEDS ORDERED: IBUPROFEN 400 MG TABLET (FP) PO PRN (14:44)
[2022-02-04] MEDS ORDERED: P-EPHED 60MG/TRIPROLIDI 2.5MG TABLET PO PRN (14:44)
[2022-02-04] MEDS ORDERED: NICOTINE POLACRILEX 2 MG GUM BUC PRN (14:44)
[2022-02-04] MEDS ORDERED: MAGNESIUM CITRATE 300 ML BOTTLE PO PRN (14:44)
[2022-02-04] MEDS ORDERED: LOPERAMIDE HCL 2 MG CAPSULE PO PRN (14:44)
[2022-02-04] MEDS: THIAMINE HCL 100 MG TABLET (FP) PO SCH (21:20)
[2022-02-04] MEDS: TAMSULOSIN HCL 0.4 MG CAP PO SCH (21:20)
[2022-02-04] MEDS: CARVEDILOL 6.25 MG TABLET (FP) PO SCH (21:20)
[2022-02-04] MEDS: MELATONIN 5 MG TABLETS PO SCH (21:20)
[2022-02-04] MEDS: FAMOTIDINE 20 MG TABLET PO SCH (21:20)
[2022-02-04] MEDS: BUDESONIDE/FORMETEROL FUMARATE 80/4.5 mcg INHALER IH SCH (21:21)
[2022-02-04] MEDS: TIMOLOL 0.5% OPHTHALMIC SOL 5 ML BOTTLE OU SCH (21:22)
[2022-02-04] MEDS: LATANOPROST 0.005% OPHTH SOLN 2.5ML BOTTLE OU SCH (21:22)
[2022-02-04] MEDS: ALBUTEROL SO4 HFA INHALER IH PRN (21:23)
[2022-02-04] MEDS: hydrOXYzine PAMOATE 25 MG CAPSULE (FP) PO PRN (21:24)
[2022-02-05] MEDS: BUDESONIDE/FORMETEROL FUMARATE 80/4.5 mcg INHALER IH SCH ×2 (10:12→21:41)
[2022-02-05] MEDS: LORATADINE 10 MG TABLET PO SCH (10:13)
[2022-02-05] MEDS: NICOTINE 21 MG/24 HOURS TOPICAL PATCH TD SCH (10:13)
[2022-02-05] MEDS: hydrOXYzine PAMOATE 25 MG CAPSULE (FP) PO PRN ×2 (10:13→21:41)
[2022-02-05] MEDS: SELENIUM SULFIDE 2.5% LOTION 4 OZ. TP SCH (10:13)
[2022-02-05] MEDS: CARVEDILOL 6.25 MG TABLET (FP) PO SCH ×2 (10:13→21:37)
[2022-02-05] MEDS: FAMOTIDINE 20 MG TABLET PO SCH ×2 (10:13→21:37)
[2022-02-05] MEDS: PRENATAL VITAMINS W/ FOLIC ACID TABLET (FP) PO SCH (10:13)
[2022-02-05] MEDS: TIMOLOL 0.5% OPHTHALMIC SOL 5 ML BOTTLE OU SCH ×2 (10:14→21:41)
[2022-02-05] MEDS: guaiFENesin 200 MG/10 ML 10 ML UNIT-DOSE CUPS PO PRN (10:14)
[2022-02-05] MEDS: ACETAMINOPHEN 325 MG TABLET (FP) PO PRN ×2 (10:15→21:42)
[2022-02-05] MEDS: ARTIFICIAL TEARS (POLYVINYL ALCOHOL) OPTH DROPS OU PRN (10:19)
[2022-02-05] MEDS: TAMSULOSIN HCL 0.4 MG CAP PO SCH (21:37)
[2022-02-05] MEDS: MELATONIN 5 MG TABLETS PO SCH (21:38)
[2022-02-05] MEDS: THIAMINE HCL 100 MG TABLET (FP) PO SCH (21:38)
[2022-02-05] MEDS: LATANOPROST 0.005% OPHTH SOLN 2.5ML BOTTLE OU SCH (21:42)
[2022-02-06] MEDS: PRENATAL VITAMINS W/ FOLIC ACID TABLET (FP) PO SCH (10:10)
[2022-02-06] MEDS: LORATADINE 10 MG TABLET PO SCH (10:10)
[2022-02-06] MEDS: CARVEDILOL 6.25 MG TABLET (FP) PO SCH ×2 (10:10→21:38)
[2022-02-06] MEDS: FAMOTIDINE 20 MG TABLET PO SCH ×2 (10:10→21:38)
[2022-02-06] MEDS: SELENIUM SULFIDE 2.5% LOTION 4 OZ. TP SCH (10:11)
[2022-02-06] MEDS: NICOTINE 21 MG/24 HOURS TOPICAL PATCH TD SCH (10:11)
[2022-02-06] MEDS: BUDESONIDE/FORMETEROL FUMARATE 80/4.5 mcg INHALER IH SCH ×2 (10:11→21:39)
[2022-02-06] MEDS: guaiFENesin 200 MG/10 ML 10 ML UNIT-DOSE CUPS PO PRN ×2 (10:13→21:40)
[2022-02-06] MEDS: TIMOLOL 0.5% OPHTHALMIC SOL 5 ML BOTTLE OU SCH ×2 (10:13→21:41)
[2022-02-06] MEDS: MAG HYDROX/AL HYDROX/SIMETH 30 ML UNIT-DOSE CUP PO PRN (10:15)
[2022-02-06] MEDS: MELATONIN 5 MG TABLETS PO SCH (21:38)
[2022-02-06] MEDS: THIAMINE HCL 100 MG TABLET (FP) PO SCH (21:38)
[2022-02-06] MEDS: TAMSULOSIN HCL 0.4 MG CAP PO SCH (21:38)
[2022-02-06] MEDS: LATANOPROST 0.005% OPHTH SOLN 2.5ML BOTTLE OU SCH (21:46)
[2022-02-07] MEDS: CARVEDILOL 6.25 MG TABLET (FP) PO SCH ×2 (09:30→21:04)
[2022-02-07] MEDS: FAMOTIDINE 20 MG TABLET PO SCH ×2 (09:30→21:03)
[2022-02-07] MEDS: PRENATAL VITAMINS W/ FOLIC ACID TABLET (FP) PO SCH (09:30)
[2022-02-07] MEDS: SELENIUM SULFIDE 2.5% LOTION 4 OZ. TP SCH (09:31)
[2022-02-07] MEDS: NICOTINE 21 MG/24 HOURS TOPICAL PATCH TD SCH (09:32)
[2022-02-07] MEDS: BUDESONIDE/FORMETEROL FUMARATE 80/4.5 mcg INHALER IH SCH ×2 (09:32→21:06)
[2022-02-07] MEDS: TIMOLOL 0.5% OPHTHALMIC SOL 5 ML BOTTLE OU SCH ×2 (09:32→21:06)
[2022-02-07] MEDS: ACETAMINOPHEN 325 MG TABLET (FP) PO PRN (09:38)
[2022-02-07] MEDS: LORATADINE 10 MG TABLET PO SCH (11:36)
[2022-02-07] MEDS: LIDOCAINE 5% TOPICAL PATCH TP SCH (11:36)
[2022-02-07] MEDS: THIAMINE HCL 100 MG TABLET (FP) PO SCH (21:03)
[2022-02-07] MEDS: TAMSULOSIN HCL 0.4 MG CAP PO SCH (21:03)
[2022-02-07] MEDS: OLANZapine 10 MG TABLET PO SCH (21:05)
[2022-02-07] MEDS: traZODone HCL 100 MG TABLET (FP) PO SCH (21:05)
[2022-02-07] MEDS: LIDOCAINE PATCH REMOVAL MC SCH (21:06)
[2022-02-07] MEDS: LATANOPROST 0.005% OPHTH SOLN 2.5ML BOTTLE OU SCH (21:49)
[2022-02-08 06:06] LABS: SARS-CoV-2 NAA Not Detected (Not Detected)
[2022-02-08] MEDS: ACETAMINOPHEN 325 MG TABLET (FP) PO PRN (06:35)
[2022-02-08] MEDS: FAMOTIDINE 20 MG TABLET PO SCH ×2 (10:06→21:38)
[2022-02-08] MEDS: LORATADINE 10 MG TABLET PO SCH (10:06)
[2022-02-08] MEDS: LIDOCAINE 5% TOPICAL PATCH TP SCH (10:06)
[2022-02-08] MEDS: NICOTINE 21 MG/24 HOURS TOPICAL PATCH TD SCH (10:07)
[2022-02-08] MEDS: PRENATAL VITAMINS W/ FOLIC ACID TABLET (FP) PO SCH (10:07)
[2022-02-08] MEDS: CARVEDILOL 6.25 MG TABLET (FP) PO SCH ×2 (10:07→21:38)
[2022-02-08] MEDS: BUDESONIDE/FORMETEROL FUMARATE 80/4.5 mcg INHALER IH SCH ×2 (10:08→21:40)
[2022-02-08] MEDS: SELENIUM SULFIDE 2.5% LOTION 4 OZ. TP SCH (10:08)
[2022-02-08] MEDS: ARTIFICIAL TEARS (POLYVINYL ALCOHOL) OPTH DROPS OU PRN (13:40)
[2022-02-08] MEDS ORDERED: TIMOLOL 0.5% OPHTHALMIC SOL 5 ML BOTTLE OU SCH (14:00)
[2022-02-08] MEDS: TIMOLOL 0.5% OPHTHALMIC SOL 5 ML BOTTLE OU SCH (18:57)
[2022-02-08] MEDS: TAMSULOSIN HCL 0.4 MG CAP PO SCH (21:38)
[2022-02-08] MEDS: OLANZapine 10 MG TABLET PO SCH (21:38)
[2022-02-08] MEDS: THIAMINE HCL 100 MG TABLET (FP) PO SCH (21:38)
[2022-02-08] MEDS: traZODone HCL 100 MG TABLET (FP) PO SCH (21:38)
[2022-02-08] MEDS: hydrOXYzine PAMOATE 25 MG CAPSULE (FP) PO PRN (21:40)
[2022-02-08] MEDS: LIDOCAINE PATCH REMOVAL MC SCH (21:40)
[2022-02-08] MEDS: LATANOPROST 0.005% OPHTH SOLN 2.5ML BOTTLE OU SCH (21:40)
[2022-02-08] MEDS: MAG HYDROX/AL HYDROX/SIMETH 30 ML UNIT-DOSE CUP PO PRN (21:56)
[2022-02-09] MEDS: MAG HYDROX/AL HYDROX/SIMETH 30 ML UNIT-DOSE CUP PO PRN (06:52)
[2022-02-09] MEDS: PRENATAL VITAMINS W/ FOLIC ACID TABLET (FP) PO SCH (10:36)
[2022-02-09] MEDS: BUDESONIDE/FORMETEROL FUMARATE 80/4.5 mcg INHALER IH SCH ×2 (10:36→21:23)
[2022-02-09] MEDS: FAMOTIDINE 20 MG TABLET PO SCH ×2 (10:36→21:22)
[2022-02-09] MEDS: LORATADINE 10 MG TABLET PO SCH (10:36)
[2022-02-09] MEDS: CARVEDILOL 6.25 MG TABLET (FP) PO SCH ×2 (10:36→21:23)
[2022-02-09] MEDS: hydrOXYzine PAMOATE 25 MG CAPSULE (FP) PO PRN ×2 (10:37→21:22)
[2022-02-09] MEDS: SELENIUM SULFIDE 2.5% LOTION 4 OZ. TP SCH (10:38)
[2022-02-09] MEDS: LIDOCAINE 5% TOPICAL PATCH TP SCH (11:51)
[2022-02-09] MEDS: NICOTINE 21 MG/24 HOURS TOPICAL PATCH TD SCH (11:51)
[2022-02-09] MEDS: TIMOLOL 0.5% OPHTHALMIC SOL 5 ML BOTTLE OU SCH ×2 (11:52→19:04)
[2022-02-09] MEDS: MAGNESIUM HYDROX 2400MG/30ML ORAL SUSPENSION 30 ML CUP PO PRN (19:01)
[2022-02-09] MEDS: TAMSULOSIN HCL 0.4 MG CAP PO SCH (21:20)
[2022-02-09] MEDS: traZODone HCL 100 MG TABLET (FP) PO SCH (21:20)
[2022-02-09] MEDS: OLANZapine 10 MG TABLET PO SCH (21:20)
[2022-02-09] MEDS: THIAMINE HCL 100 MG TABLET (FP) PO SCH (21:20)
[2022-02-09] MEDS: ACETAMINOPHEN 325 MG TABLET (FP) PO PRN (21:22)
[2022-02-09] MEDS: LIDOCAINE PATCH REMOVAL MC SCH (21:23)
[2022-02-09] MEDS: LATANOPROST 0.005% OPHTH SOLN 2.5ML BOTTLE OU SCH (23:47)
[2022-02-10] MEDS: ACETAMINOPHEN 325 MG TABLET (FP) PO PRN (06:42)
[2022-02-10] MEDS: TIMOLOL 0.5% OPHTHALMIC SOL 5 ML BOTTLE OU SCH ×2 (10:45→19:18)
[2022-02-10] MEDS: BUDESONIDE/FORMETEROL FUMARATE 80/4.5 mcg INHALER IH SCH ×2 (10:45→21:23)
[2022-02-10] MEDS: NICOTINE 21 MG/24 HOURS TOPICAL PATCH TD SCH (10:46)
[2022-02-10] MEDS: LIDOCAINE 5% TOPICAL PATCH TP SCH (10:47)
[2022-02-10] MEDS: CARVEDILOL 6.25 MG TABLET (FP) PO SCH ×2 (10:47→21:22)
[2022-02-10] MEDS: PRENATAL VITAMINS W/ FOLIC ACID TABLET (FP) PO SCH (10:47)
[2022-02-10] MEDS: SELENIUM SULFIDE 2.5% LOTION 4 OZ. TP SCH (10:47)
[2022-02-10] MEDS: FAMOTIDINE 20 MG TABLET PO SCH ×2 (10:47→21:22)
[2022-02-10] MEDS: LORATADINE 10 MG TABLET PO SCH (10:47)
[2022-02-10] MEDS: hydrOXYzine PAMOATE 25 MG CAPSULE (FP) PO PRN ×2 (10:48→21:23)
[2022-02-10] MEDS: ALBUTEROL SO4 HFA INHALER IH PRN (10:49)
[2022-02-10] MEDS: METHOCARBAMOL 500 MG TABLET PO PRN (12:17)
[2022-02-10] MEDS: ASPIRIN COATED 81 MG TABLET.EC PO SCH (12:17)
[2022-02-10] MEDS: VITAMINS A AND D TOPICAL OINTMENT 60 GM TUBE TP SCH ×2 (12:19→19:18)
[2022-02-10] MEDS: COLLOIDAL OATMEAL 1 BAR EACH TP PRN (12:22)
[2022-02-10] MEDS ORDERED: PANTOPRAZOLE 20 MG TABLET PO ONE (14:00)
[2022-02-10] MEDS: traZODone HCL 100 MG TABLET (FP) PO SCH (21:22)
[2022-02-10] MEDS: OLANZapine 10 MG TABLET PO SCH (21:22)
[2022-02-10] MEDS: TAMSULOSIN HCL 0.4 MG CAP PO SCH (21:22)
[2022-02-10] MEDS: THIAMINE HCL 100 MG TABLET (FP) PO SCH (21:22)
[2022-02-10] MEDS: LIDOCAINE PATCH REMOVAL MC SCH (21:23)
[2022-02-10] MEDS: LATANOPROST 0.005% OPHTH SOLN 2.5ML BOTTLE OU SCH (21:31)
[2022-02-11] MEDS: VITAMINS A AND D TOPICAL OINTMENT 60 GM TUBE TP SCH ×4 (02:10→18:04)
[2022-02-11] MEDS: PRENATAL VITAMINS W/ FOLIC ACID TABLET (FP) PO SCH (11:00)
[2022-02-11] MEDS: LIDOCAINE 5% TOPICAL PATCH TP SCH (11:01)
[2022-02-11] MEDS: ASPIRIN COATED 81 MG TABLET.EC PO SCH (11:01)
[2022-02-11] MEDS: FAMOTIDINE 20 MG TABLET PO SCH ×2 (11:01→21:05)
[2022-02-11] MEDS: CARVEDILOL 6.25 MG TABLET (FP) PO SCH ×2 (11:01→21:08)
[2022-02-11] MEDS: LORATADINE 10 MG TABLET PO SCH (11:01)
[2022-02-11] MEDS: NICOTINE 21 MG/24 HOURS TOPICAL PATCH TD SCH (11:02)
[2022-02-11] MEDS: BUDESONIDE/FORMETEROL FUMARATE 80/4.5 mcg INHALER IH SCH ×2 (11:04→21:04)
[2022-02-11] MEDS: ALBUTEROL SO4 HFA INHALER IH PRN ×2 (11:04→21:09)
[2022-02-11] MEDS: ACETAMINOPHEN 325 MG TABLET (FP) PO PRN (11:06)
[2022-02-11] MEDS: TIMOLOL 0.5% OPHTHALMIC SOL 5 ML BOTTLE OU SCH ×2 (11:07→18:04)
[2022-02-11] MEDS: SELENIUM SULFIDE 2.5% LOTION 4 OZ. TP SCH (11:08)
[2022-02-11] MEDS: hydrOXYzine PAMOATE 25 MG CAPSULE (FP) PO PRN ×2 (11:08→21:10)
[2022-02-11] MEDS: THIAMINE HCL 100 MG TABLET (FP) PO SCH (21:05)
[2022-02-11] MEDS: OLANZapine 10 MG TABLET PO SCH (21:05)
[2022-02-11] MEDS: traZODone HCL 100 MG TABLET (FP) PO SCH (21:05)
[2022-02-11] MEDS: TAMSULOSIN HCL 0.4 MG CAP PO SCH (21:05)
[2022-02-11] MEDS: LIDOCAINE PATCH REMOVAL MC SCH (21:06)
[2022-02-11] MEDS: guaiFENesin 200 MG/10 ML 10 ML UNIT-DOSE CUPS PO PRN (21:10)
[2022-02-11] MEDS: LATANOPROST 0.005% OPHTH SOLN 2.5ML BOTTLE OU SCH (22:30)
[2022-02-12] MEDS: VITAMINS A AND D TOPICAL OINTMENT 60 GM TUBE TP SCH ×4 (01:05→18:30)
[2022-02-12] MEDS: PRENATAL VITAMINS W/ FOLIC ACID TABLET (FP) PO SCH (09:33)
[2022-02-12] MEDS: BUDESONIDE/FORMETEROL FUMARATE 80/4.5 mcg INHALER IH SCH ×2 (09:35→21:58)
[2022-02-12] MEDS: LIDOCAINE 5% TOPICAL PATCH TP SCH (09:35)
[2022-02-12] MEDS: FAMOTIDINE 20 MG TABLET PO SCH ×2 (09:35→21:30)
[2022-02-12] MEDS: TIMOLOL 0.5% OPHTHALMIC SOL 5 ML BOTTLE OU SCH ×2 (09:35→18:45)
[2022-02-12] MEDS: LORATADINE 10 MG TABLET PO SCH (09:35)
[2022-02-12] MEDS: ASPIRIN COATED 81 MG TABLET.EC PO SCH (09:35)
[2022-02-12] MEDS: CARVEDILOL 6.25 MG TABLET (FP) PO SCH ×2 (09:35→21:31)
[2022-02-12] MEDS: NICOTINE 21 MG/24 HOURS TOPICAL PATCH TD SCH (09:37)
[2022-02-12] MEDS: hydrOXYzine PAMOATE 25 MG CAPSULE (FP) PO PRN ×2 (09:37→21:31)
[2022-02-12] MEDS ORDERED: PANTOPRAZOLE SOD 40 MG SUSPENSION PACKET PO SCH (13:45)
[2022-02-12] MEDS: PANTOPRAZOLE 20 MG TABLET PO SCH (14:11)
[2022-02-12] MEDS: OLANZapine 10 MG TABLET PO SCH (21:29)
[2022-02-12] MEDS: traZODone HCL 100 MG TABLET (FP) PO SCH (21:29)
[2022-02-12] MEDS: TAMSULOSIN HCL 0.4 MG CAP PO SCH (21:30)
[2022-02-12] MEDS: THIAMINE HCL 100 MG TABLET (FP) PO SCH (21:30)
[2022-02-12] MEDS: ACETAMINOPHEN 325 MG TABLET (FP) PO PRN (21:47)
[2022-02-12] MEDS: LATANOPROST 0.005% OPHTH SOLN 2.5ML BOTTLE OU SCH (21:52)
[2022-02-12] MEDS: LIDOCAINE PATCH REMOVAL MC SCH (21:58)
[2022-02-13] MEDS: VITAMINS A AND D TOPICAL OINTMENT 60 GM TUBE TP SCH ×4 (00:25→18:45)
[2022-02-13] MEDS: CARVEDILOL 6.25 MG TABLET (FP) PO SCH ×2 (09:45→21:04)
[2022-02-13] MEDS: NICOTINE 21 MG/24 HOURS TOPICAL PATCH TD SCH (09:45)
[2022-02-13] MEDS: PANTOPRAZOLE 20 MG TABLET PO SCH (09:45)
[2022-02-13] MEDS: LORATADINE 10 MG TABLET PO SCH (09:45)
[2022-02-13] MEDS: LIDOCAINE 5% TOPICAL PATCH TP SCH (09:45)
[2022-02-13] MEDS: ASPIRIN COATED 81 MG TABLET.EC PO SCH (09:45)
[2022-02-13] MEDS: FAMOTIDINE 20 MG TABLET PO SCH ×2 (09:45→21:05)
[2022-02-13] MEDS: PRENATAL VITAMINS W/ FOLIC ACID TABLET (FP) PO SCH (09:45)
[2022-02-13] MEDS: BUDESONIDE/FORMETEROL FUMARATE 80/4.5 mcg INHALER IH SCH ×2 (09:45→21:06)
[2022-02-13] MEDS: TIMOLOL 0.5% OPHTHALMIC SOL 5 ML BOTTLE OU SCH ×2 (09:46→18:45)
[2022-02-13] MEDS: hydrOXYzine PAMOATE 25 MG CAPSULE (FP) PO PRN ×2 (09:47→21:05)
[2022-02-13] MEDS: ARTIFICIAL TEARS (POLYVINYL ALCOHOL) OPTH DROPS OU PRN (11:53)
[2022-02-13] MEDS: THIAMINE HCL 100 MG TABLET (FP) PO SCH (21:04)
[2022-02-13] MEDS: OLANZapine 10 MG TABLET PO SCH (21:04)
[2022-02-13] MEDS: traZODone HCL 100 MG TABLET (FP) PO SCH (21:05)
[2022-02-13] MEDS: ACETAMINOPHEN 325 MG TABLET (FP) PO PRN (21:05)
[2022-02-13] MEDS: LIDOCAINE PATCH REMOVAL MC SCH (21:06)
[2022-02-13] MEDS: TAMSULOSIN HCL 0.4 MG CAP PO SCH (21:06)
[2022-02-13] MEDS: LATANOPROST 0.005% OPHTH SOLN 2.5ML BOTTLE OU SCH (22:40)
[2022-02-14] MEDS: VITAMINS A AND D TOPICAL OINTMENT 60 GM TUBE TP SCH ×3 (06:54→18:28)
[2022-02-14] MEDS: BUDESONIDE/FORMETEROL FUMARATE 80/4.5 mcg INHALER IH SCH ×2 (09:12→22:23)
[2022-02-14] MEDS: LORATADINE 10 MG TABLET PO SCH (09:12)
[2022-02-14] MEDS: ASPIRIN COATED 81 MG TABLET.EC PO SCH (09:12)
[2022-02-14] MEDS: CARVEDILOL 6.25 MG TABLET (FP) PO SCH ×2 (09:12→22:36)
[2022-02-14] MEDS: FAMOTIDINE 20 MG TABLET PO SCH ×2 (09:12→22:22)
[2022-02-14] MEDS: PRENATAL VITAMINS W/ FOLIC ACID TABLET (FP) PO SCH (09:12)
[2022-02-14] MEDS: LIDOCAINE 5% TOPICAL PATCH TP SCH (09:13)
[2022-02-14] MEDS: TIMOLOL 0.5% OPHTHALMIC SOL 5 ML BOTTLE OU SCH ×2 (09:13→18:27)
[2022-02-14] MEDS: NICOTINE 21 MG/24 HOURS TOPICAL PATCH TD SCH (09:13)
[2022-02-14] MEDS: hydrOXYzine PAMOATE 25 MG CAPSULE (FP) PO PRN ×2 (09:14→22:22)
[2022-02-14] MEDS: guaiFENesin 200 MG/10 ML 10 ML UNIT-DOSE CUPS PO PRN (09:15)
[2022-02-14] MEDS: PANTOPRAZOLE 20 MG TABLET PO SCH (10:26)
[2022-02-14] MEDS: ACETAMINOPHEN 325 MG TABLET (FP) PO PRN ×2 (10:26→22:21)
[2022-02-14] MEDS: ARTIFICIAL TEARS (POLYVINYL ALCOHOL) OPTH DROPS OU PRN ×2 (11:19→23:38)
[2022-02-14] MEDS: MAG HYDROX/AL HYDROX/SIMETH 30 ML UNIT-DOSE CUP PO PRN (18:27)
[2022-02-14] MEDS: OLANZapine 10 MG TABLET PO SCH (22:22)
[2022-02-14] MEDS: TAMSULOSIN HCL 0.4 MG CAP PO SCH (22:22)
[2022-02-14] MEDS: LATANOPROST 0.005% OPHTH SOLN 2.5ML BOTTLE OU SCH (22:22)
[2022-02-14] MEDS: THIAMINE HCL 100 MG TABLET (FP) PO SCH (22:22)
[2022-02-14] MEDS: traZODone HCL 100 MG TABLET (FP) PO SCH (22:22)
[2022-02-14] MEDS: LIDOCAINE PATCH REMOVAL MC SCH (22:36)
[2022-02-15] MEDS: VITAMINS A AND D TOPICAL OINTMENT 60 GM TUBE TP SCH ×4 (04:18→18:55)
[2022-02-15] MEDS: PANTOPRAZOLE 20 MG TABLET PO SCH (10:59)
[2022-02-15] MEDS: LORATADINE 10 MG TABLET PO SCH (10:59)
[2022-02-15] MEDS: ASPIRIN COATED 81 MG TABLET.EC PO SCH (10:59)
[2022-02-15] MEDS: BUDESONIDE/FORMETEROL FUMARATE 80/4.5 mcg INHALER IH SCH ×2 (10:59→21:03)
[2022-02-15] MEDS: ACETAMINOPHEN 325 MG TABLET (FP) PO PRN ×2 (11:00→21:02)
[2022-02-15] MEDS: PRENATAL VITAMINS W/ FOLIC ACID TABLET (FP) PO SCH (11:12)
[2022-02-15] MEDS: LIDOCAINE 5% TOPICAL PATCH TP SCH (11:12)
[2022-02-15] MEDS: NICOTINE 21 MG/24 HOURS TOPICAL PATCH TD SCH (11:12)
[2022-02-15] MEDS: FAMOTIDINE 20 MG TABLET PO SCH ×2 (11:12→21:01)
[2022-02-15] MEDS: TIMOLOL 0.5% OPHTHALMIC SOL 5 ML BOTTLE OU SCH ×2 (11:12→18:55)
[2022-02-15] MEDS: CARVEDILOL 6.25 MG TABLET (FP) PO SCH ×2 (11:12→21:01)
[2022-02-15] MEDS: METHOCARBAMOL 500 MG TABLET PO PRN ×2 (11:13→21:02)
[2022-02-15] MEDS: ARTIFICIAL TEARS (POLYVINYL ALCOHOL) OPTH DROPS OU PRN (11:13)
[2022-02-15] MEDS: hydrOXYzine PAMOATE 25 MG CAPSULE (FP) PO PRN ×2 (11:13→21:01)
[2022-02-15] MEDS: TAMSULOSIN HCL 0.4 MG CAP PO SCH (21:01)
[2022-02-15] MEDS: OLANZapine 10 MG TABLET PO SCH (21:01)
[2022-02-15] MEDS: traZODone HCL 100 MG TABLET (FP) PO SCH (21:01)
[2022-02-15] MEDS: THIAMINE HCL 100 MG TABLET (FP) PO SCH (21:02)
[2022-02-15] MEDS: LIDOCAINE PATCH REMOVAL MC SCH (21:03)
[2022-02-15] MEDS: LATANOPROST 0.005% OPHTH SOLN 2.5ML BOTTLE OU SCH (21:46)
[2022-02-16] MEDS: VITAMINS A AND D TOPICAL OINTMENT 60 GM TUBE TP SCH ×4 (00:10→19:11)
[2022-02-16] MEDS: PRENATAL VITAMINS W/ FOLIC ACID TABLET (FP) PO SCH (10:15)
[2022-02-16] MEDS: ASPIRIN COATED 81 MG TABLET.EC PO SCH (10:15)
[2022-02-16] MEDS: LORATADINE 10 MG TABLET PO SCH (10:15)
[2022-02-16] MEDS: PANTOPRAZOLE 20 MG TABLET PO SCH (10:15)
[2022-02-16] MEDS: FAMOTIDINE 20 MG TABLET PO SCH ×2 (10:15→21:35)
[2022-02-16] MEDS: NICOTINE 21 MG/24 HOURS TOPICAL PATCH TD SCH (10:16)
[2022-02-16] MEDS: LIDOCAINE 5% TOPICAL PATCH TP SCH (10:17)
[2022-02-16] MEDS: TIMOLOL 0.5% OPHTHALMIC SOL 5 ML BOTTLE OU SCH ×2 (10:18→19:00)
[2022-02-16] MEDS: BUDESONIDE/FORMETEROL FUMARATE 80/4.5 mcg INHALER IH SCH ×2 (10:18→21:37)
[2022-02-16] MEDS: CARVEDILOL 6.25 MG TABLET (FP) PO SCH ×2 (10:21→21:35)
[2022-02-16] MEDS: ACETAMINOPHEN 325 MG TABLET (FP) PO PRN (10:22)
[2022-02-16] MEDS: ARTIFICIAL TEARS (POLYVINYL ALCOHOL) OPTH DROPS OU PRN (14:31)
[2022-02-16] MEDS: MAGNESIUM HYDROX 2400MG/30ML ORAL SUSPENSION 30 ML CUP PO PRN (19:12)
[2022-02-16] MEDS: OLANZapine 10 MG TABLET PO SCH (21:35)
[2022-02-16] MEDS: TAMSULOSIN HCL 0.4 MG CAP PO SCH (21:35)
[2022-02-16] MEDS: THIAMINE HCL 100 MG TABLET (FP) PO SCH (21:35)
[2022-02-16] MEDS: hydrOXYzine PAMOATE 25 MG CAPSULE (FP) PO PRN (21:35)
[2022-02-16] MEDS: METHOCARBAMOL 500 MG TABLET PO PRN (21:35)
[2022-02-16] MEDS: traZODone HCL 100 MG TABLET (FP) PO SCH (21:35)
[2022-02-16] MEDS: LIDOCAINE PATCH REMOVAL MC SCH (21:36)
[2022-02-16] MEDS: MENTHOL/PHENOL 1 EACH UD MM PRN (21:37)
[2022-02-16] MEDS: LATANOPROST 0.005% OPHTH SOLN 2.5ML BOTTLE OU SCH (21:37)
[2022-02-16] MEDS: guaiFENesin 200 MG/10 ML 10 ML UNIT-DOSE CUPS PO PRN (21:37)
[2022-02-17] MEDS: VITAMINS A AND D TOPICAL OINTMENT 60 GM TUBE TP SCH ×4 (01:14→19:15)
[2022-02-17] MEDS: LORATADINE 10 MG TABLET PO SCH (10:17)
[2022-02-17] MEDS: ASPIRIN COATED 81 MG TABLET.EC PO SCH (10:18)
[2022-02-17] MEDS: CARVEDILOL 6.25 MG TABLET (FP) PO SCH ×2 (10:18→21:02)
[2022-02-17] MEDS: LIDOCAINE 5% TOPICAL PATCH TP SCH ×2 (10:18)
[2022-02-17] MEDS: NICOTINE 21 MG/24 HOURS TOPICAL PATCH TD SCH (10:18)
[2022-02-17] MEDS: FAMOTIDINE 20 MG TABLET PO SCH ×2 (10:19→21:02)
[2022-02-17] MEDS: PRENATAL VITAMINS W/ FOLIC ACID TABLET (FP) PO SCH (10:19)
[2022-02-17] MEDS: PANTOPRAZOLE 20 MG TABLET PO SCH (10:19)
[2022-02-17] MEDS: BUDESONIDE/FORMETEROL FUMARATE 80/4.5 mcg INHALER IH SCH ×2 (10:20→21:03)
[2022-02-17] MEDS: TIMOLOL 0.5% OPHTHALMIC SOL 5 ML BOTTLE OU SCH ×2 (10:20→18:50)
[2022-02-17] MEDS: hydrOXYzine PAMOATE 25 MG CAPSULE (FP) PO PRN ×2 (10:21→21:02)
[2022-02-17] MEDS: METHOCARBAMOL 500 MG TABLET PO PRN (10:22)
[2022-02-17] MEDS: ACETAMINOPHEN 325 MG TABLET (FP) PO PRN (10:22)
[2022-02-17] MEDS: ARTIFICIAL TEARS (POLYVINYL ALCOHOL) OPTH DROPS OU PRN (11:00)
[2022-02-17] MEDS: NICOTINE 10 MG CARTRIDGE (INHALER) IH PRN (19:23)
[2022-02-17] MEDS: traZODone HCL 100 MG TABLET (FP) PO SCH (21:02)
[2022-02-17] MEDS: TAMSULOSIN HCL 0.4 MG CAP PO SCH (21:02)
[2022-02-17] MEDS: OLANZapine 10 MG TABLET PO SCH (21:02)
[2022-02-17] MEDS: THIAMINE HCL 100 MG TABLET (FP) PO SCH (21:02)
[2022-02-17] MEDS: LATANOPROST 0.005% OPHTH SOLN 2.5ML BOTTLE OU SCH (21:03)
[2022-02-17] MEDS: LIDOCAINE PATCH REMOVAL MC SCH ×2 (21:03)
[2022-02-18] MEDS: VITAMINS A AND D TOPICAL OINTMENT 60 GM TUBE TP SCH ×4 (00:30→19:10)
[2022-02-18] MEDS: FAMOTIDINE 20 MG TABLET PO SCH ×2 (10:25→22:15)
[2022-02-18] MEDS: METHOCARBAMOL 500 MG TABLET PO PRN (10:25)
[2022-02-18] MEDS: PANTOPRAZOLE 20 MG TABLET PO SCH (10:25)
[2022-02-18] MEDS: LORATADINE 10 MG TABLET PO SCH (10:25)
[2022-02-18] MEDS: BUDESONIDE/FORMETEROL FUMARATE 80/4.5 mcg INHALER IH SCH ×2 (10:25→22:15)
[2022-02-18] MEDS: LIDOCAINE 5% TOPICAL PATCH TP SCH ×2 (10:26→10:27)
[2022-02-18] MEDS: ASPIRIN COATED 81 MG TABLET.EC PO SCH (10:26)
[2022-02-18] MEDS: PRENATAL VITAMINS W/ FOLIC ACID TABLET (FP) PO SCH (10:26)
[2022-02-18] MEDS: NICOTINE 21 MG/24 HOURS TOPICAL PATCH TD SCH (10:28)
[2022-02-18] MEDS: NICOTINE 10 MG CARTRIDGE (INHALER) IH PRN ×2 (10:29→22:20)
[2022-02-18] MEDS: hydrOXYzine PAMOATE 25 MG CAPSULE (FP) PO PRN (10:30)
[2022-02-18] MEDS: ACETAMINOPHEN 325 MG TABLET (FP) PO PRN (10:31)
[2022-02-18] MEDS: TIMOLOL 0.5% OPHTHALMIC SOL 5 ML BOTTLE OU SCH ×2 (10:33→19:10)
[2022-02-18] MEDS: CARVEDILOL 6.25 MG TABLET (FP) PO SCH ×2 (12:02→22:18)
[2022-02-18] MEDS: traZODone HCL 100 MG TABLET (FP) PO SCH (22:15)
[2022-02-18] MEDS: TAMSULOSIN HCL 0.4 MG CAP PO SCH (22:15)
[2022-02-18] MEDS: OLANZapine 10 MG TABLET PO SCH (22:16)
[2022-02-18] MEDS: THIAMINE HCL 100 MG TABLET (FP) PO SCH (22:16)
[2022-02-18] MEDS: LIDOCAINE PATCH REMOVAL MC SCH ×2 (22:16→22:17)
[2022-02-18] MEDS: LATANOPROST 0.005% OPHTH SOLN 2.5ML BOTTLE OU SCH (22:22)
[2022-02-19] MEDS: VITAMINS A AND D TOPICAL OINTMENT 60 GM TUBE TP SCH ×4 (00:55→18:45)
[2022-02-19] MEDS: FAMOTIDINE 20 MG TABLET PO SCH ×2 (10:10→21:49)
[2022-02-19] MEDS: PRENATAL VITAMINS W/ FOLIC ACID TABLET (FP) PO SCH (10:10)
[2022-02-19] MEDS: BUDESONIDE/FORMETEROL FUMARATE 80/4.5 mcg INHALER IH SCH ×2 (10:10→21:51)
[2022-02-19] MEDS: TIMOLOL 0.5% OPHTHALMIC SOL 5 ML BOTTLE OU SCH ×2 (10:11→18:44)
[2022-02-19] MEDS: ARTIFICIAL TEARS (POLYVINYL ALCOHOL) OPTH DROPS OU PRN ×2 (10:11→21:52)
[2022-02-19] MEDS: PANTOPRAZOLE 20 MG TABLET PO SCH (10:11)
[2022-02-19] MEDS: ASPIRIN COATED 81 MG TABLET.EC PO SCH (10:11)
[2022-02-19] MEDS: NICOTINE 21 MG/24 HOURS TOPICAL PATCH TD SCH (10:11)
[2022-02-19] MEDS: METHOCARBAMOL 500 MG TABLET PO PRN ×2 (10:11→21:49)
[2022-02-19] MEDS: LORATADINE 10 MG TABLET PO SCH (10:11)
[2022-02-19] MEDS: CARVEDILOL 6.25 MG TABLET (FP) PO SCH ×2 (10:11→21:48)
[2022-02-19] MEDS: LIDOCAINE 5% TOPICAL PATCH TP SCH ×2 (10:12)
[2022-02-19] MEDS: NICOTINE 10 MG CARTRIDGE (INHALER) IH PRN ×2 (10:14→21:59)
[2022-02-19] MEDS: hydrOXYzine PAMOATE 25 MG CAPSULE (FP) PO PRN ×2 (10:14→21:49)
[2022-02-19] MEDS: ACETAMINOPHEN 325 MG TABLET (FP) PO PRN ×2 (10:15→21:48)
[2022-02-19] MEDS: COLLOIDAL OATMEAL 1 BAR EACH TP PRN (13:34)
[2022-02-19] MEDS: OLANZapine 10 MG TABLET PO SCH (21:48)
[2022-02-19] MEDS: THIAMINE HCL 100 MG TABLET (FP) PO SCH (21:48)
[2022-02-19] MEDS: TAMSULOSIN HCL 0.4 MG CAP PO SCH (21:49)
[2022-02-19] MEDS: LIDOCAINE PATCH REMOVAL MC SCH ×2 (21:51)
[2022-02-19] MEDS: traZODone HCL 100 MG TABLET (FP) PO SCH (21:51)
[2022-02-19] MEDS: LATANOPROST 0.005% OPHTH SOLN 2.5ML BOTTLE OU SCH (21:52)
[2022-02-19] MEDS: ALBUTEROL SO4 HFA INHALER IH PRN (21:53)
[2022-02-19] MEDS: guaiFENesin 200 MG/10 ML 10 ML UNIT-DOSE CUPS PO PRN (21:59)
[2022-02-20] MEDS: VITAMINS A AND D TOPICAL OINTMENT 60 GM TUBE TP SCH ×4 (01:32→19:31)
[2022-02-20] MEDS: BUDESONIDE/FORMETEROL FUMARATE 80/4.5 mcg INHALER IH SCH ×2 (10:25→22:03)
[2022-02-20] MEDS: PANTOPRAZOLE 20 MG TABLET PO SCH (10:25)
[2022-02-20] MEDS: CARVEDILOL 6.25 MG TABLET (FP) PO SCH ×2 (10:25→21:58)
[2022-02-20] MEDS: ASPIRIN COATED 81 MG TABLET.EC PO SCH (10:25)
[2022-02-20] MEDS: FAMOTIDINE 20 MG TABLET PO SCH ×2 (10:25→21:57)
[2022-02-20] MEDS: PRENATAL VITAMINS W/ FOLIC ACID TABLET (FP) PO SCH (10:25)
[2022-02-20] MEDS: NICOTINE 21 MG/24 HOURS TOPICAL PATCH TD SCH (10:26)
[2022-02-20] MEDS: LIDOCAINE 5% TOPICAL PATCH TP SCH ×2 (10:26)
[2022-02-20] MEDS: TIMOLOL 0.5% OPHTHALMIC SOL 5 ML BOTTLE OU SCH ×2 (10:27→19:31)
[2022-02-20] MEDS: hydrOXYzine PAMOATE 25 MG CAPSULE (FP) PO PRN ×2 (10:28→21:58)
[2022-02-20] MEDS: METHOCARBAMOL 500 MG TABLET PO PRN ×2 (10:28→21:59)
[2022-02-20] MEDS: ACETAMINOPHEN 325 MG TABLET (FP) PO PRN ×2 (10:29→21:58)
[2022-02-20] MEDS: LORATADINE 10 MG TABLET PO SCH (10:30)
[2022-02-20] MEDS: traZODone HCL 100 MG TABLET (FP) PO SCH (21:56)
[2022-02-20] MEDS: THIAMINE HCL 100 MG TABLET (FP) PO SCH (21:56)
[2022-02-20] MEDS: OLANZapine 10 MG TABLET PO SCH (21:57)
[2022-02-20] MEDS: TAMSULOSIN HCL 0.4 MG CAP PO SCH (21:57)
[2022-02-20] MEDS: LIDOCAINE PATCH REMOVAL MC SCH ×2 (22:01)
[2022-02-20] MEDS: LATANOPROST 0.005% OPHTH SOLN 2.5ML BOTTLE OU SCH (22:03)
[2022-02-20] MEDS: guaiFENesin 200 MG/10 ML 10 ML UNIT-DOSE CUPS PO PRN (22:07)
[2022-02-21] MEDS: VITAMINS A AND D TOPICAL OINTMENT 60 GM TUBE TP SCH ×4 (01:03→18:24)
[2022-02-21] MEDS: PANTOPRAZOLE 20 MG TABLET PO SCH (10:40)
[2022-02-21] MEDS: LORATADINE 10 MG TABLET PO SCH (10:40)
[2022-02-21] MEDS: FAMOTIDINE 20 MG TABLET PO SCH ×2 (10:40→21:10)
[2022-02-21] MEDS: ASPIRIN COATED 81 MG TABLET.EC PO SCH (10:40)
[2022-02-21] MEDS: CARVEDILOL 6.25 MG TABLET (FP) PO SCH ×2 (10:41→21:09)
[2022-02-21] MEDS: PRENATAL VITAMINS W/ FOLIC ACID TABLET (FP) PO SCH (10:41)
[2022-02-21] MEDS: LIDOCAINE 5% TOPICAL PATCH TP SCH ×2 (10:41→10:45)
[2022-02-21] MEDS: hydrOXYzine PAMOATE 25 MG CAPSULE (FP) PO PRN ×2 (10:42→21:13)
[2022-02-21] MEDS: NICOTINE 21 MG/24 HOURS TOPICAL PATCH TD SCH (10:42)
[2022-02-21] MEDS: METHOCARBAMOL 500 MG TABLET PO PRN ×3 (10:42→21:14)
[2022-02-21] MEDS: ACETAMINOPHEN 325 MG TABLET (FP) PO PRN ×2 (10:43→17:52)
[2022-02-21] MEDS: TIMOLOL 0.5% OPHTHALMIC SOL 5 ML BOTTLE OU SCH ×2 (10:44→18:23)
[2022-02-21] MEDS: BUDESONIDE/FORMETEROL FUMARATE 80/4.5 mcg INHALER IH SCH ×2 (10:44→21:12)
[2022-02-21] MEDS: ARTIFICIAL TEARS (POLYVINYL ALCOHOL) OPTH DROPS OU PRN (13:05)
[2022-02-21] MEDS: TAMSULOSIN HCL 0.4 MG CAP PO SCH (21:09)
[2022-02-21] MEDS: THIAMINE HCL 100 MG TABLET (FP) PO SCH (21:09)
[2022-02-21] MEDS: traZODone HCL 100 MG TABLET (FP) PO SCH (21:09)
[2022-02-21] MEDS: OLANZapine 10 MG TABLET PO SCH (21:10)
[2022-02-21] MEDS: LIDOCAINE PATCH REMOVAL MC SCH ×2 (21:10→21:11)
[2022-02-21] MEDS: guaiFENesin 200 MG/10 ML 10 ML UNIT-DOSE CUPS PO PRN (21:13)
[2022-02-21] MEDS: LATANOPROST 0.005% OPHTH SOLN 2.5ML BOTTLE OU SCH (21:13)
[2022-02-22] MEDS: VITAMINS A AND D TOPICAL OINTMENT 60 GM TUBE TP SCH ×4 (01:16→19:36)
[2022-02-22] MEDS: CARVEDILOL 6.25 MG TABLET (FP) PO SCH ×2 (10:56→21:38)
[2022-02-22] MEDS: LORATADINE 10 MG TABLET PO SCH (10:56)
[2022-02-22] MEDS: hydrOXYzine PAMOATE 25 MG CAPSULE (FP) PO PRN ×2 (10:56→21:38)
[2022-02-22] MEDS: FAMOTIDINE 20 MG TABLET PO SCH ×2 (10:56→21:38)
[2022-02-22] MEDS: ASPIRIN COATED 81 MG TABLET.EC PO SCH (10:56)
[2022-02-22] MEDS: PANTOPRAZOLE 20 MG TABLET PO SCH (10:56)
[2022-02-22] MEDS: METHOCARBAMOL 500 MG TABLET PO PRN ×2 (10:57→21:38)
[2022-02-22] MEDS: PRENATAL VITAMINS W/ FOLIC ACID TABLET (FP) PO SCH (10:57)
[2022-02-22] MEDS: ACETAMINOPHEN 325 MG TABLET (FP) PO PRN ×2 (10:57→21:39)
[2022-02-22] MEDS: LIDOCAINE 5% TOPICAL PATCH TP SCH ×2 (10:58)
[2022-02-22] MEDS: NICOTINE 21 MG/24 HOURS TOPICAL PATCH TD SCH (10:58)
[2022-02-22] MEDS: TIMOLOL 0.5% OPHTHALMIC SOL 5 ML BOTTLE OU SCH ×2 (10:59→19:36)
[2022-02-22] MEDS: guaiFENesin 200 MG/10 ML 10 ML UNIT-DOSE CUPS PO PRN ×2 (11:03→21:41)
[2022-02-22] MEDS: BUDESONIDE/FORMETEROL FUMARATE 80/4.5 mcg INHALER IH SCH ×2 (11:04→21:41)
[2022-02-22] MEDS: NICOTINE 10 MG CARTRIDGE (INHALER) IH PRN ×2 (11:08→21:41)
[2022-02-22] MEDS: traZODone HCL 100 MG TABLET (FP) PO SCH (21:38)
[2022-02-22] MEDS: TAMSULOSIN HCL 0.4 MG CAP PO SCH (21:38)
[2022-02-22] MEDS: THIAMINE HCL 100 MG TABLET (FP) PO SCH (21:38)
[2022-02-22] MEDS: OLANZapine 10 MG TABLET PO SCH (21:38)
[2022-02-22] MEDS: MENTHOL/PHENOL 1 EACH UD MM PRN (21:41)
[2022-02-22] MEDS: LIDOCAINE PATCH REMOVAL MC SCH ×2 (21:41)
[2022-02-22] MEDS: LATANOPROST 0.005% OPHTH SOLN 2.5ML BOTTLE OU SCH (23:08)
[2022-02-23] MEDS: VITAMINS A AND D TOPICAL OINTMENT 60 GM TUBE TP SCH ×4 (00:42→19:42)
[2022-02-23] MEDS: LIDOCAINE 5% TOPICAL PATCH TP SCH ×2 (10:20)
[2022-02-23] MEDS: BUDESONIDE/FORMETEROL FUMARATE 80/4.5 mcg INHALER IH SCH ×2 (10:21→21:03)
[2022-02-23] MEDS: ASPIRIN COATED 81 MG TABLET.EC PO SCH (10:21)
[2022-02-23] MEDS: FAMOTIDINE 20 MG TABLET PO SCH ×2 (10:21→21:02)
[2022-02-23] MEDS: PANTOPRAZOLE 20 MG TABLET PO SCH (10:22)
[2022-02-23] MEDS: NICOTINE 21 MG/24 HOURS TOPICAL PATCH TD SCH (10:22)
[2022-02-23] MEDS: LORATADINE 10 MG TABLET PO SCH (10:22)
[2022-02-23] MEDS: CARVEDILOL 6.25 MG TABLET (FP) PO SCH ×2 (10:22→21:02)
[2022-02-23] MEDS: PRENATAL VITAMINS W/ FOLIC ACID TABLET (FP) PO SCH (10:23)
[2022-02-23] MEDS: METHOCARBAMOL 500 MG TABLET PO PRN ×2 (10:25→21:02)
[2022-02-23] MEDS: ACETAMINOPHEN 325 MG TABLET (FP) PO PRN (10:25)
[2022-02-23] MEDS: hydrOXYzine PAMOATE 25 MG CAPSULE (FP) PO PRN ×2 (10:25→21:02)
[2022-02-23] MEDS: TIMOLOL 0.5% OPHTHALMIC SOL 5 ML BOTTLE OU SCH ×2 (10:28→18:40)
[2022-02-23] MEDS: TAMSULOSIN HCL 0.4 MG CAP PO SCH (21:02)
[2022-02-23] MEDS: OLANZapine 10 MG TABLET PO SCH (21:02)
[2022-02-23] MEDS: traZODone HCL 100 MG TABLET (FP) PO SCH (21:02)
[2022-02-23] MEDS: THIAMINE HCL 100 MG TABLET (FP) PO SCH (21:02)
[2022-02-23] MEDS: NICOTINE 10 MG CARTRIDGE (INHALER) IH PRN (21:03)
[2022-02-23] MEDS: LIDOCAINE PATCH REMOVAL MC SCH ×2 (21:03)
[2022-02-23] MEDS: LATANOPROST 0.005% OPHTH SOLN 2.5ML BOTTLE OU SCH (21:03)
[2022-02-23] MEDS: guaiFENesin 200 MG/10 ML 10 ML UNIT-DOSE CUPS PO PRN (21:03)
[2022-02-24] MEDS: VITAMINS A AND D TOPICAL OINTMENT 60 GM TUBE TP SCH ×4 (02:44→18:40)
[2022-02-24] MEDS: ACETAMINOPHEN 325 MG TABLET (FP) PO PRN (11:00)
[2022-02-24] MEDS: PRENATAL VITAMINS W/ FOLIC ACID TABLET (FP) PO SCH (11:00)
[2022-02-24] MEDS: CARVEDILOL 6.25 MG TABLET (FP) PO SCH ×2 (11:00→21:33)
[2022-02-24] MEDS: NICOTINE 21 MG/24 HOURS TOPICAL PATCH TD SCH (11:00)
[2022-02-24] MEDS: LORATADINE 10 MG TABLET PO SCH (11:00)
[2022-02-24] MEDS: PANTOPRAZOLE 20 MG TABLET PO SCH (11:01)
[2022-02-24] MEDS: hydrOXYzine PAMOATE 25 MG CAPSULE (FP) PO PRN ×2 (11:01→21:35)
[2022-02-24] MEDS: METHOCARBAMOL 500 MG TABLET PO PRN ×2 (11:02→21:33)
[2022-02-24] MEDS: ASPIRIN COATED 81 MG TABLET.EC PO SCH (11:02)
[2022-02-24] MEDS: LIDOCAINE 5% TOPICAL PATCH TP SCH ×2 (11:03→11:04)
[2022-02-24] MEDS: BUDESONIDE/FORMETEROL FUMARATE 80/4.5 mcg INHALER IH SCH ×2 (11:03→21:36)
[2022-02-24] MEDS: FAMOTIDINE 20 MG TABLET PO SCH ×2 (11:08→21:33)
[2022-02-24] MEDS: TIMOLOL 0.5% OPHTHALMIC SOL 5 ML BOTTLE OU SCH ×2 (11:08→18:40)
[2022-02-24] MEDS: traZODone HCL 100 MG TABLET (FP) PO SCH (21:33)
[2022-02-24] MEDS: TAMSULOSIN HCL 0.4 MG CAP PO SCH (21:33)
[2022-02-24] MEDS: THIAMINE HCL 100 MG TABLET (FP) PO SCH (21:33)
[2022-02-24] MEDS: OLANZapine 10 MG TABLET PO SCH (21:34)
[2022-02-24] MEDS: LIDOCAINE PATCH REMOVAL MC SCH ×2 (21:35)
[2022-02-24] MEDS: guaiFENesin 200 MG/10 ML 10 ML UNIT-DOSE CUPS PO PRN (21:35)
[2022-02-24] MEDS: LATANOPROST 0.005% OPHTH SOLN 2.5ML BOTTLE OU SCH (21:36)
[2022-02-25] MEDS: VITAMINS A AND D TOPICAL OINTMENT 60 GM TUBE TP SCH ×5 (01:08→23:44)
[2022-02-25] MEDS: CARVEDILOL 6.25 MG TABLET (FP) PO SCH ×2 (10:32→21:07)
[2022-02-25] MEDS: LORATADINE 10 MG TABLET PO SCH (10:32)
[2022-02-25] MEDS: METHOCARBAMOL 500 MG TABLET PO PRN ×2 (10:33→21:07)
[2022-02-25] MEDS: ASPIRIN COATED 81 MG TABLET.EC PO SCH (10:33)
[2022-02-25] MEDS: hydrOXYzine PAMOATE 25 MG CAPSULE (FP) PO PRN ×2 (10:33→21:07)
[2022-02-25] MEDS: FAMOTIDINE 20 MG TABLET PO SCH ×2 (10:33→21:07)
[2022-02-25] MEDS: PRENATAL VITAMINS W/ FOLIC ACID TABLET (FP) PO SCH (10:33)
[2022-02-25] MEDS: ACETAMINOPHEN 325 MG TABLET (FP) PO PRN ×2 (10:33→21:07)
[2022-02-25] MEDS: PANTOPRAZOLE 20 MG TABLET PO SCH (10:33)
[2022-02-25] MEDS: NICOTINE 21 MG/24 HOURS TOPICAL PATCH TD SCH (10:34)
[2022-02-25] MEDS: LIDOCAINE 5% TOPICAL PATCH TP SCH ×2 (10:35)
[2022-02-25] MEDS: guaiFENesin 200 MG/10 ML 10 ML UNIT-DOSE CUPS PO PRN ×2 (10:36→21:10)
[2022-02-25] MEDS: MAGNESIUM HYDROX 2400MG/30ML ORAL SUSPENSION 30 ML CUP PO PRN (10:37)
[2022-02-25] MEDS: TIMOLOL 0.5% OPHTHALMIC SOL 5 ML BOTTLE OU SCH ×2 (11:03→17:34)
[2022-02-25] MEDS: BUDESONIDE/FORMETEROL FUMARATE 80/4.5 mcg INHALER IH SCH ×2 (11:03→21:08)
[2022-02-25] MEDS: LIDOCAINE PATCH REMOVAL MC SCH ×2 (21:06)
[2022-02-25] MEDS: traZODone HCL 100 MG TABLET (FP) PO SCH (21:07)
[2022-02-25] MEDS: TAMSULOSIN HCL 0.4 MG CAP PO SCH (21:07)
[2022-02-25] MEDS: LATANOPROST 0.005% OPHTH SOLN 2.5ML BOTTLE OU SCH (21:07)
[2022-02-25] MEDS: OLANZapine 10 MG TABLET PO SCH (21:07)
[2022-02-25] MEDS: THIAMINE HCL 100 MG TABLET (FP) PO SCH (21:10)
[2022-02-26] MEDS: VITAMINS A AND D TOPICAL OINTMENT 60 GM TUBE TP SCH ×3 (06:40→18:26)
[2022-02-26] MEDS: BUDESONIDE/FORMETEROL FUMARATE 80/4.5 mcg INHALER IH SCH ×2 (09:13→21:45)
[2022-02-26] MEDS: LORATADINE 10 MG TABLET PO SCH (09:14)
[2022-02-26] MEDS: CARVEDILOL 6.25 MG TABLET (FP) PO SCH ×2 (09:14→21:43)
[2022-02-26] MEDS: FAMOTIDINE 20 MG TABLET PO SCH ×2 (09:14→21:43)
[2022-02-26] MEDS: NICOTINE 21 MG/24 HOURS TOPICAL PATCH TD SCH (09:14)
[2022-02-26] MEDS: PRENATAL VITAMINS W/ FOLIC ACID TABLET (FP) PO SCH (09:14)
[2022-02-26] MEDS: hydrOXYzine PAMOATE 25 MG CAPSULE (FP) PO PRN ×2 (09:14→21:44)
[2022-02-26] MEDS: ACETAMINOPHEN 325 MG TABLET (FP) PO PRN (09:14)
[2022-02-26] MEDS: ASPIRIN COATED 81 MG TABLET.EC PO SCH (09:14)
[2022-02-26] MEDS: METHOCARBAMOL 500 MG TABLET PO PRN ×2 (09:14→21:44)
[2022-02-26] MEDS: PANTOPRAZOLE 20 MG TABLET PO SCH (09:14)
[2022-02-26] MEDS: TIMOLOL 0.5% OPHTHALMIC SOL 5 ML BOTTLE OU SCH ×2 (09:15→18:26)
[2022-02-26] MEDS: NICOTINE 10 MG CARTRIDGE (INHALER) IH PRN (09:28)
[2022-02-26] MEDS: LIDOCAINE 5% TOPICAL PATCH TP SCH ×2 (09:36)
[2022-02-26] MEDS: ALBUTEROL SO4 HFA INHALER IH PRN (13:13)
[2022-02-26] MEDS: TAMSULOSIN HCL 0.4 MG CAP PO SCH (21:43)
[2022-02-26] MEDS: traZODone HCL 100 MG TABLET (FP) PO SCH (21:43)
[2022-02-26] MEDS: THIAMINE HCL 100 MG TABLET (FP) PO SCH (21:43)
[2022-02-26] MEDS: OLANZapine 10 MG TABLET PO SCH (21:43)
[2022-02-26] MEDS: LIDOCAINE PATCH REMOVAL MC SCH ×2 (21:46)
[2022-02-26] MEDS: LATANOPROST 0.005% OPHTH SOLN 2.5ML BOTTLE OU SCH (21:47)
[2022-02-27] MEDS: VITAMINS A AND D TOPICAL OINTMENT 60 GM TUBE TP SCH ×5 (05:29→23:35)
[2022-02-27] MEDS: MAG HYDROX/AL HYDROX/SIMETH 30 ML UNIT-DOSE CUP PO PRN (10:44)
[2022-02-27] MEDS: LIDOCAINE 5% TOPICAL PATCH TP SCH ×2 (10:44)
[2022-02-27] MEDS: METHOCARBAMOL 500 MG TABLET PO PRN ×2 (11:16→21:25)
[2022-02-27] MEDS: hydrOXYzine PAMOATE 25 MG CAPSULE (FP) PO PRN ×2 (11:16→21:25)
[2022-02-27] MEDS: FAMOTIDINE 20 MG TABLET PO SCH ×2 (11:17→21:25)
[2022-02-27] MEDS: ACETAMINOPHEN 325 MG TABLET (FP) PO PRN ×2 (11:17→21:25)
[2022-02-27] MEDS: LORATADINE 10 MG TABLET PO SCH (11:17)
[2022-02-27] MEDS: PRENATAL VITAMINS W/ FOLIC ACID TABLET (FP) PO SCH (11:17)
[2022-02-27] MEDS: ASPIRIN COATED 81 MG TABLET.EC PO SCH (11:17)
[2022-02-27] MEDS: PANTOPRAZOLE 20 MG TABLET PO SCH (11:17)
[2022-02-27] MEDS: CARVEDILOL 6.25 MG TABLET (FP) PO SCH ×2 (11:18→21:25)
[2022-02-27] MEDS: NICOTINE 21 MG/24 HOURS TOPICAL PATCH TD SCH (11:18)
[2022-02-27] MEDS: BUDESONIDE/FORMETEROL FUMARATE 80/4.5 mcg INHALER IH SCH ×2 (11:18→21:26)
[2022-02-27] MEDS: TIMOLOL 0.5% OPHTHALMIC SOL 5 ML BOTTLE OU SCH ×2 (11:19→18:45)
[2022-02-27] MEDS: guaiFENesin 200 MG/10 ML 10 ML UNIT-DOSE CUPS PO PRN (11:21)
[2022-02-27] MEDS: OLANZapine 10 MG TABLET PO SCH (21:25)
[2022-02-27] MEDS: traZODone HCL 100 MG TABLET (FP) PO SCH (21:25)
[2022-02-27] MEDS: TAMSULOSIN HCL 0.4 MG CAP PO SCH (21:25)
[2022-02-27] MEDS: THIAMINE HCL 100 MG TABLET (FP) PO SCH (21:26)
[2022-02-27] MEDS: LATANOPROST 0.005% OPHTH SOLN 2.5ML BOTTLE OU SCH (21:26)
[2022-02-27] MEDS: LIDOCAINE PATCH REMOVAL MC SCH ×2 (21:26)
[2022-02-28] MEDS: VITAMINS A AND D TOPICAL OINTMENT 60 GM TUBE TP SCH ×3 (06:03→18:45)
[2022-02-28] MEDS: BUDESONIDE/FORMETEROL FUMARATE 80/4.5 mcg INHALER IH SCH ×2 (10:25→21:02)
[2022-02-28] MEDS: LORATADINE 10 MG TABLET PO SCH (10:26)
[2022-02-28] MEDS: CARVEDILOL 6.25 MG TABLET (FP) PO SCH ×2 (10:26→21:03)
[2022-02-28] MEDS: FAMOTIDINE 20 MG TABLET PO SCH ×2 (10:26→21:03)
[2022-02-28] MEDS: ASPIRIN COATED 81 MG TABLET.EC PO SCH (10:26)
[2022-02-28] MEDS: LIDOCAINE 5% TOPICAL PATCH TP SCH ×2 (10:27→10:44)
[2022-02-28] MEDS: METHOCARBAMOL 500 MG TABLET PO PRN ×2 (10:32→21:05)
[2022-02-28] MEDS: hydrOXYzine PAMOATE 25 MG CAPSULE (FP) PO PRN ×2 (10:32→21:05)
[2022-02-28] MEDS: PRENATAL VITAMINS W/ FOLIC ACID TABLET (FP) PO SCH (10:44)
[2022-02-28] MEDS: PANTOPRAZOLE 20 MG TABLET PO SCH (10:44)
[2022-02-28] MEDS: NICOTINE 21 MG/24 HOURS TOPICAL PATCH TD SCH (10:44)
[2022-02-28] MEDS: TIMOLOL 0.5% OPHTHALMIC SOL 5 ML BOTTLE OU SCH ×2 (10:45→21:05)
[2022-02-28] MEDS: NICOTINE 10 MG CARTRIDGE (INHALER) IH PRN (10:45)
[2022-02-28] MEDS: COLLOIDAL OATMEAL 1 BAR EACH TP PRN (12:08)
[2022-02-28] MEDS: BACITRACIN 0.9 GM PACKET TP SCH (15:55)
[2022-02-28] MEDS: TAMSULOSIN HCL 0.4 MG CAP PO SCH (21:03)
[2022-02-28] MEDS: traZODone HCL 100 MG TABLET (FP) PO SCH (21:03)
[2022-02-28] MEDS: THIAMINE HCL 100 MG TABLET (FP) PO SCH (21:03)
[2022-02-28] MEDS: OLANZapine 10 MG TABLET PO SCH (21:03)
[2022-02-28] MEDS: ACETAMINOPHEN 325 MG TABLET (FP) PO PRN (21:04)
[2022-02-28] MEDS: LIDOCAINE PATCH REMOVAL MC SCH ×2 (21:06)
[2022-02-28] MEDS: LATANOPROST 0.005% OPHTH SOLN 2.5ML BOTTLE OU SCH (21:06)
[2022-03-01] MEDS: VITAMINS A AND D TOPICAL OINTMENT 60 GM TUBE TP SCH ×4 (00:09→18:17)
[2022-03-01] MEDS: BUDESONIDE/FORMETEROL FUMARATE 80/4.5 mcg INHALER IH SCH ×2 (10:33→21:31)
[2022-03-01] MEDS: CARVEDILOL 6.25 MG TABLET (FP) PO SCH ×2 (10:34→21:29)
[2022-03-01] MEDS: ASPIRIN COATED 81 MG TABLET.EC PO SCH (10:34)
[2022-03-01] MEDS: PRENATAL VITAMINS W/ FOLIC ACID TABLET (FP) PO SCH (10:34)
[2022-03-01] MEDS: FAMOTIDINE 20 MG TABLET PO SCH ×2 (10:34→21:29)
[2022-03-01] MEDS: LORATADINE 10 MG TABLET PO SCH (10:34)
[2022-03-01] MEDS: METHOCARBAMOL 500 MG TABLET PO PRN ×2 (10:34→21:29)
[2022-03-01] MEDS: PANTOPRAZOLE 20 MG TABLET PO SCH (10:34)
[2022-03-01] MEDS: NICOTINE 21 MG/24 HOURS TOPICAL PATCH TD SCH (10:35)
[2022-03-01] MEDS: hydrOXYzine PAMOATE 25 MG CAPSULE (FP) PO PRN ×2 (10:35→21:29)
[2022-03-01] MEDS: LIDOCAINE 5% TOPICAL PATCH TP SCH ×2 (10:36→10:40)
[2022-03-01] MEDS: TIMOLOL 0.5% OPHTHALMIC SOL 5 ML BOTTLE OU SCH ×2 (11:02→18:20)
[2022-03-01] MEDS: BACITRACIN 0.9 GM PACKET TP SCH (11:02)
[2022-03-01] MEDS: OLANZapine 10 MG TABLET PO SCH (21:28)
[2022-03-01] MEDS: THIAMINE HCL 100 MG TABLET (FP) PO SCH (21:29)
[2022-03-01] MEDS: traZODone HCL 100 MG TABLET (FP) PO SCH (21:29)
[2022-03-01] MEDS: TAMSULOSIN HCL 0.4 MG CAP PO SCH (21:29)
[2022-03-01] MEDS: NICOTINE 10 MG CARTRIDGE (INHALER) IH PRN (21:30)
[2022-03-01] MEDS: ACETAMINOPHEN 325 MG TABLET (FP) PO PRN (21:30)
[2022-03-01] MEDS: LIDOCAINE PATCH REMOVAL MC SCH ×2 (21:31)
[2022-03-01] MEDS: LATANOPROST 0.005% OPHTH SOLN 2.5ML BOTTLE OU SCH (21:31)
[2022-03-02] MEDS: VITAMINS A AND D TOPICAL OINTMENT 60 GM TUBE TP SCH ×4 (01:13→19:05)
[2022-03-02 07:03] VITALS: TEMP 98.2
[2022-03-02] MEDS: CARVEDILOL 6.25 MG TABLET (FP) PO SCH ×2 (10:26→21:01)
[2022-03-02] MEDS: BUDESONIDE/FORMETEROL FUMARATE 80/4.5 mcg INHALER IH SCH ×2 (10:26→21:02)
[2022-03-02] MEDS: hydrOXYzine PAMOATE 25 MG CAPSULE (FP) PO PRN ×2 (10:26→21:00)
[2022-03-02] MEDS: LORATADINE 10 MG TABLET PO SCH (10:26)
[2022-03-02] MEDS: METHOCARBAMOL 500 MG TABLET PO PRN ×2 (10:26→21:00)
[2022-03-02] MEDS: PANTOPRAZOLE 20 MG TABLET PO SCH (10:26)
[2022-03-02] MEDS: FAMOTIDINE 20 MG TABLET PO SCH ×2 (10:26→21:00)
[2022-03-02] MEDS: ASPIRIN COATED 81 MG TABLET.EC PO SCH (10:26)
[2022-03-02] MEDS: ACETAMINOPHEN 325 MG TABLET (FP) PO PRN (10:27)
[2022-03-02] MEDS: LIDOCAINE 5% TOPICAL PATCH TP SCH ×2 (10:28)
[2022-03-02] MEDS: NICOTINE 21 MG/24 HOURS TOPICAL PATCH TD SCH (10:29)
[2022-03-02] MEDS: BACITRACIN 0.9 GM PACKET TP SCH (10:30)
[2022-03-02] MEDS: PRENATAL VITAMINS W/ FOLIC ACID TABLET (FP) PO SCH (10:30)
[2022-03-02] MEDS: TIMOLOL 0.5% OPHTHALMIC SOL 5 ML BOTTLE OU SCH ×2 (10:31→19:05)
[2022-03-02] MEDS: OLANZapine 10 MG TABLET PO SCH (21:00)
[2022-03-02] MEDS: THIAMINE HCL 100 MG TABLET (FP) PO SCH (21:00)
[2022-03-02] MEDS: traZODone HCL 100 MG TABLET (FP) PO SCH (21:00)
[2022-03-02] MEDS: TAMSULOSIN HCL 0.4 MG CAP PO SCH (21:00)
[2022-03-02] MEDS: LIDOCAINE PATCH REMOVAL MC SCH ×2 (21:01)
[2022-03-02] MEDS: ARTIFICIAL TEARS (POLYVINYL ALCOHOL) OPTH DROPS OU PRN (21:19)
[2022-03-02] MEDS: LATANOPROST 0.005% OPHTH SOLN 2.5ML BOTTLE OU SCH (21:27)
[2022-03-03] MEDS: VITAMINS A AND D TOPICAL OINTMENT 60 GM TUBE TP SCH ×5 (00:36→23:59)
[2022-03-03] MEDS: MAGNESIUM HYDROX 2400MG/30ML ORAL SUSPENSION 30 ML CUP PO PRN (06:53)
[2022-03-03] MEDS: LORATADINE 10 MG TABLET PO SCH (09:50)
[2022-03-03] MEDS: METHOCARBAMOL 500 MG TABLET PO PRN ×2 (09:50→21:30)
[2022-03-03] MEDS: ACETAMINOPHEN 325 MG TABLET (FP) PO PRN (09:50)
[2022-03-03] MEDS: hydrOXYzine PAMOATE 25 MG CAPSULE (FP) PO PRN ×2 (09:50→21:30)
[2022-03-03] MEDS: PRENATAL VITAMINS W/ FOLIC ACID TABLET (FP) PO SCH (09:50)
[2022-03-03] MEDS: FAMOTIDINE 20 MG TABLET PO SCH ×2 (09:50→21:30)
[2022-03-03] MEDS: PANTOPRAZOLE 20 MG TABLET PO SCH (09:50)
[2022-03-03] MEDS: ASPIRIN COATED 81 MG TABLET.EC PO SCH (09:50)
[2022-03-03] MEDS: LIDOCAINE 5% TOPICAL PATCH TP SCH ×2 (09:52→09:54)
[2022-03-03] MEDS: NICOTINE 21 MG/24 HOURS TOPICAL PATCH TD SCH (09:52)
[2022-03-03] MEDS: NICOTINE 10 MG CARTRIDGE (INHALER) IH PRN (09:53)
[2022-03-03] MEDS: CARVEDILOL 6.25 MG TABLET (FP) PO SCH ×2 (09:53→21:30)
[2022-03-03] MEDS: BACITRACIN 0.9 GM PACKET TP SCH (09:54)
[2022-03-03] MEDS: TIMOLOL 0.5% OPHTHALMIC SOL 5 ML BOTTLE OU SCH ×2 (09:54→20:00)
[2022-03-03] MEDS: BUDESONIDE/FORMETEROL FUMARATE 80/4.5 mcg INHALER IH SCH ×2 (09:54→21:32)
[2022-03-03 20:36] VITALS: BP 127/84; PULSE 76
[2022-03-03] MEDS: traZODone HCL 100 MG TABLET (FP) PO SCH (21:30)
[2022-03-03] MEDS: TAMSULOSIN HCL 0.4 MG CAP PO SCH (21:30)
[2022-03-03] MEDS: THIAMINE HCL 100 MG TABLET (FP) PO SCH (21:30)
[2022-03-03] MEDS: OLANZapine 10 MG TABLET PO SCH (21:30)
[2022-03-03] MEDS: LIDOCAINE PATCH REMOVAL MC SCH ×2 (21:31)
[2022-03-03] MEDS: LATANOPROST 0.005% OPHTH SOLN 2.5ML BOTTLE OU SCH (21:32)
[2022-03-03] MEDS: ARTIFICIAL TEARS (POLYVINYL ALCOHOL) OPTH DROPS OU PRN (22:47)
[2022-03-04] MEDS: VITAMINS A AND D TOPICAL OINTMENT 60 GM TUBE TP SCH (06:39)
== END 2022-03-04 09:02 | disposition home or self-care (01) | DRG 772 ==
LOC: YASAS 13:52 → UNDOADMIN 13:53 → Y3W 13:53
PROVIDERS: ADMIT Allergy & Immunology; ATTEND Allergy & Immunology
PROC: HZ42ZZZ Group Counseling for Substance Abuse Treatment, Cognitive-Behavioral (ICD-10-PCS; principal; 2022-02-06)
DX: F10.20 Alcohol dependence, uncomplicated (principal); F14.20 Cocaine dependence, uncomplicated; F17.210 Nicotine dependence, cigarettes, uncomplicated; F20.0 Paranoid schizophrenia; F41.9 Anxiety disorder, unspecified; F32.A Depression, unspecified; J44.9 Chronic obstructive pulmonary disease, unspecified; K21.9 Gastro-esophageal reflux disease without esophagitis; N40.0 Benign prostatic hyperplasia without lower urinary tract symptoms; K59.00 Constipation, unspecified; M54.50 Low back pain, unspecified; M47.9 Spondylosis, unspecified; S00.01XA Abrasion of scalp, initial encounter; W26.8XXA Contact with other sharp object(s), not elsewhere classified, initial encounter; Y92.238 Other place in hospital as the place of occurrence of the external cause; Z88.0 Allergy status to penicillin; Z88.5 Allergy status to narcotic agent; Z88.8 Allergy status to other drugs, medicaments and biological substances
CPT/HCPCS: 87804; C9803-CS; U0003; U0005

== ENCOUNTER 2022-03-23 16:16 | Inpatient (IN) | payer OTHER ==
[2022-03-23 16:59] VITALS: BMI 28.0
[2022-03-23] MEDS ORDERED: MAGNESIUM CITRATE 300 ML BOTTLE PO PRN (17:41)
[2022-03-23] MEDS ORDERED: METHOCARBAMOL 500 MG TABLET PO PRN (17:41)
[2022-03-23] MEDS ORDERED: MAG HYDROX/AL HYDROX/SIMETH 30 ML UNIT-DOSE CUP PO PRN (17:41)
[2022-03-23] MEDS ORDERED: LOPERAMIDE HCL 2 MG CAPSULE PO PRN (17:41)
[2022-03-23] MEDS ORDERED: MELATONIN 5 MG TABLETS PO PRN (17:41)
[2022-03-23] MEDS ORDERED: MAGNESIUM HYDROX 2400MG/30ML ORAL SUSPENSION 30 ML CUP PO PRN (17:41)
[2022-03-23] MEDS ORDERED: BENZOCAINE/MENTHOL (CHLORASEPTIC ) LOZENGE MM PRN (17:41)
[2022-03-23] MEDS ORDERED: ACETAMINOPHEN 325 MG TABLET (FP) PO PRN ×2 (17:41)
[2022-03-23] MEDS ORDERED: ONDANSETRON *ODT* 4 MG TABLET SL PRN (17:41)
[2022-03-23] MEDS ORDERED: DICYCLOMINE HCL 10 MG CAPSULE PO PRN (17:41)
[2022-03-23] MEDS ORDERED: ALBUTEROL SO4 HFA INHALER IH PRN (17:43)
[2022-03-23] MEDS ORDERED: COLLOIDAL OATMEAL 1 BAR EACH TP PRN (17:47)
[2022-03-23] MEDS ORDERED: AMMONIUM LACTATE 12% LOTION 225 GM BOTTLE TP PRN (20:16)
[2022-03-23] MEDS ORDERED: diphenhydrAMINE HCL 25 MG CAPSULE (FP) PO ONE (20:18)
[2022-03-23] MEDS: hydrOXYzine PAMOATE 25 MG CAPSULE (FP) PO PRN (20:20)
[2022-03-23] MEDS ORDERED: diazePAM 5 MG TABLET PO PRN (20:47)
[2022-03-23] MEDS: TAMSULOSIN HCL 0.4 MG CAP PO SCH (20:59)
[2022-03-23] MEDS: FAMOTIDINE 20 MG TABLET PO SCH (20:59)
[2022-03-23] MEDS: CARVEDILOL 6.25 MG TABLET (FP) PO SCH (20:59)
[2022-03-23] MEDS: THIAMINE HCL 100 MG TABLET (FP) PO SCH (20:59)
[2022-03-23] MEDS: APIXABAN 5 MG TABLET PO SCH (20:59)
[2022-03-23] MEDS: BUDESONIDE/FORMETEROL FUMARATE 80/4.5 mcg INHALER IH SCH (23:20)
[2022-03-23] MEDS: TIMOLOL 0.5% OPHTHALMIC SOL 5 ML BOTTLE OU SCH (23:51)
[2022-03-23] MEDS: LATANOPROST 0.005% OPHTH SOLN 2.5ML BOTTLE OU SCH (23:51)
[2022-03-24] MEDS: FAMOTIDINE 20 MG TABLET PO SCH ×2 (11:17→22:51)
[2022-03-24] MEDS: BUDESONIDE/FORMETEROL FUMARATE 80/4.5 mcg INHALER IH SCH ×2 (11:18→22:51)
[2022-03-24] MEDS: PRENATAL VITAMINS W/ FOLIC ACID TABLET (FP) PO SCH (11:18)
[2022-03-24] MEDS: APIXABAN 5 MG TABLET PO SCH ×2 (11:18→22:51)
[2022-03-24] MEDS: TIMOLOL 0.5% OPHTHALMIC SOL 5 ML BOTTLE OU SCH ×2 (11:25→22:51)
[2022-03-24] MEDS: FOLIC ACID 1 MG TABLET (FP) PO SCH (11:25)
[2022-03-24] MEDS: CARVEDILOL 6.25 MG TABLET (FP) PO SCH ×2 (11:25→22:51)
[2022-03-24] MEDS: hydrOXYzine PAMOATE 25 MG CAPSULE (FP) PO PRN (20:11)
[2022-03-24] MEDS ORDERED: OLANZapine 10 MG TABLET PO SCH (22:00)
[2022-03-24] MEDS ORDERED: traZODone HCL 100 MG TABLET (FP) PO SCH (22:00)
[2022-03-24] MEDS: TAMSULOSIN HCL 0.4 MG CAP PO SCH (22:51)
[2022-03-24] MEDS: THIAMINE HCL 100 MG TABLET (FP) PO SCH (22:52)
[2022-03-24] MEDS: LATANOPROST 0.005% OPHTH SOLN 2.5ML BOTTLE OU SCH (22:52)
[2022-03-25 09:40] VITALS: BP 113/73; PULSE 82; TEMP 97.5
[2022-03-25 11:08] LABS: SARS-CoV-2 NAA Not Detected (Not Detected)
[2022-03-25] MEDS: APIXABAN 5 MG TABLET PO SCH (11:13)
[2022-03-25] MEDS: CARVEDILOL 6.25 MG TABLET (FP) PO SCH (11:13)
[2022-03-25] MEDS: FAMOTIDINE 20 MG TABLET PO SCH (11:13)
[2022-03-25] MEDS: PRENATAL VITAMINS W/ FOLIC ACID TABLET (FP) PO SCH (11:13)
[2022-03-25] MEDS: FOLIC ACID 1 MG TABLET (FP) PO SCH (11:13)
[2022-03-25] MEDS: TIMOLOL 0.5% OPHTHALMIC SOL 5 ML BOTTLE OU SCH (11:14)
[2022-03-25] MEDS: BUDESONIDE/FORMETEROL FUMARATE 80/4.5 mcg INHALER IH SCH (11:14)
[2022-03-25] MEDS: hydrOXYzine PAMOATE 25 MG CAPSULE (FP) PO PRN (11:20)
== END 2022-03-25 12:53 | disposition home or self-care (01) | DRG 774 ==
LOC: YASAS 16:16 → Y6N 19:17
PROVIDERS: ADMIT Allergy & Immunology; ATTEND Allergy & Immunology
PROC: HZ2ZZZZ Detoxification Services for Substance Abuse Treatment (ICD-10-PCS; principal; 2022-03-23)
DX: F10.230 Alcohol dependence with withdrawal, uncomplicated (principal); F14.20 Cocaine dependence, uncomplicated; F12.20 Cannabis dependence, uncomplicated; F17.210 Nicotine dependence, cigarettes, uncomplicated; F20.0 Paranoid schizophrenia; F10.282 Alcohol dependence with alcohol-induced sleep disorder; H54.61 Unqualified visual loss, right eye, normal vision left eye; J43.9 Emphysema, unspecified; K21.9 Gastro-esophageal reflux disease without esophagitis; N40.0 Benign prostatic hyperplasia without lower urinary tract symptoms; M54.50 Low back pain, unspecified; G89.29 Other chronic pain; Z99.89 Dependence on other enabling machines and devices; Z88.0 Allergy status to penicillin; Z88.5 Allergy status to narcotic agent; Z88.8 Allergy status to other drugs, medicaments and biological substances; Z56.0 Unemployment, unspecified; Z59.00 Homelessness unspecified
CPT/HCPCS: 87811; C9803-CS; U0003; U0005

== ENCOUNTER 2022-05-03 23:46 | Inpatient (IN) | payer OTHER ==
[2022-05-04] MEDS ORDERED: NICOTINE POLACRILEX 2 MG GUM BUC PRN (00:45)
[2022-05-04] MEDS ORDERED: LOPERAMIDE HCL 2 MG CAPSULE PO PRN (00:45)
[2022-05-04] MEDS ORDERED: METHOCARBAMOL 500 MG TABLET PO PRN (00:45)
[2022-05-04] MEDS ORDERED: DICYCLOMINE HCL 10 MG CAPSULE PO PRN (00:45)
[2022-05-04] MEDS ORDERED: MAGNESIUM CITRATE 300 ML BOTTLE PO PRN (00:45)
[2022-05-04] MEDS ORDERED: P-EPHED 60MG/TRIPROLIDI 2.5MG TABLET PO PRN (00:45)
[2022-05-04] MEDS ORDERED: ACETAMINOPHEN 325 MG TABLET (FP) PO PRN ×2 (00:45)
[2022-05-04] MEDS ORDERED: ONDANSETRON *ODT* 4 MG TABLET SL PRN (00:45)
[2022-05-04] MEDS ORDERED: MAGNESIUM HYDROX 2400MG/30ML ORAL SUSPENSION 30 ML CUP PO PRN (00:45)
[2022-05-04] MEDS ORDERED: MAG HYDROX/AL HYDROX/SIMETH 30 ML UNIT-DOSE CUP PO PRN (00:45)
[2022-05-04] MEDS ORDERED: BENZOCAINE/MENTHOL (CHLORASEPTIC ) LOZENGE MM PRN (00:45)
[2022-05-04 00:59] VITALS: BMI 26.4
[2022-05-04] MEDS: LORATADINE 10 MG TABLET PO SCH (13:27)
[2022-05-04] MEDS: CARVEDILOL 6.25 MG TABLET (FP) PO SCH ×2 (13:27→21:02)
[2022-05-04] MEDS: LISINOPRIL 5 MG TABLET PO SCH (13:27)
[2022-05-04] MEDS: APIXABAN 5 MG TABLET PO SCH ×2 (13:27→21:02)
[2022-05-04] MEDS: FAMOTIDINE 20 MG TABLET PO SCH ×2 (13:27→21:02)
[2022-05-04] MEDS: NICOTINE 21 MG/24 HOURS TOPICAL PATCH TD SCH (13:30)
[2022-05-04] MEDS: PRENATAL VITAMINS W/ FOLIC ACID TABLET (FP) PO SCH (13:30)
[2022-05-04] MEDS: ALBUTEROL SO4 HFA INHALER IH PRN (13:31)
[2022-05-04] MEDS: BUDESONIDE/FORMETEROL FUMARATE 80/4.5 mcg INHALER IH SCH ×2 (13:31→21:03)
[2022-05-04] MEDS: FOLIC ACID 1 MG TABLET (FP) PO SCH (13:31)
[2022-05-04] MEDS: TIMOLOL 0.5% OPHTHALMIC SOL 5 ML BOTTLE OU SCH ×2 (13:51→21:03)
[2022-05-04] MEDS: hydrOXYzine PAMOATE 25 MG CAPSULE (FP) PO PRN ×2 (13:55→21:06)
[2022-05-04] MEDS ORDERED: THIAMINE HCL 100 MG TABLET (FP) PO SCH (22:00)
[2022-05-04] MEDS ORDERED: MELATONIN 5 MG TABLETS PO SCH (22:00)
[2022-05-04] MEDS ORDERED: OLANZapine 10 MG TABLET PO SCH (22:00)
[2022-05-04] MEDS ORDERED: traZODone HCL 100 MG TABLET (FP) PO SCH (22:00)
[2022-05-04] MEDS ORDERED: LATANOPROST 0.005% OPHTH SOLN 2.5ML BOTTLE OU SCH (22:00)
[2022-05-04] MEDS ORDERED: TAMSULOSIN HCL 0.4 MG CAP PO SCH (22:00)
[2022-05-05] MEDS ORDERED: COLLOIDAL OATMEAL 1 BAR EACH TP PRN (09:11)
[2022-05-05] MEDS: APIXABAN 5 MG TABLET PO SCH (10:16)
[2022-05-05] MEDS: CARVEDILOL 6.25 MG TABLET (FP) PO SCH (10:16)
[2022-05-05] MEDS: FAMOTIDINE 20 MG TABLET PO SCH (10:16)
[2022-05-05] MEDS: BUDESONIDE/FORMETEROL FUMARATE 80/4.5 mcg INHALER IH SCH (10:16)
[2022-05-05] MEDS: FOLIC ACID 1 MG TABLET (FP) PO SCH (10:16)
[2022-05-05] MEDS: LORATADINE 10 MG TABLET PO SCH (10:16)
[2022-05-05] MEDS: PRENATAL VITAMINS W/ FOLIC ACID TABLET (FP) PO SCH (10:17)
[2022-05-05] MEDS: LISINOPRIL 5 MG TABLET PO SCH (10:17)
[2022-05-05] MEDS: ALBUTEROL SO4 HFA INHALER IH PRN (10:17)
[2022-05-05] MEDS: NICOTINE 21 MG/24 HOURS TOPICAL PATCH TD SCH (10:21)
[2022-05-05] MEDS: TIMOLOL 0.5% OPHTHALMIC SOL 5 ML BOTTLE OU SCH (11:10)
[2022-05-05 13:49] VITALS: BP 82/53; PULSE 81; TEMP 98
== END 2022-05-05 13:50 | disposition other institution (70) | DRG 774 ==
LOC: YASAS 23:46 → Y6N 05-04 01:13
PROVIDERS: ADMIT Allergy & Immunology; ATTEND Surgery
PROC: HZ2ZZZZ Detoxification Services for Substance Abuse Treatment (ICD-10-PCS; principal; 2022-05-04)
DX: F10.230 Alcohol dependence with withdrawal, uncomplicated (principal); F14.20 Cocaine dependence, uncomplicated; F17.210 Nicotine dependence, cigarettes, uncomplicated; F25.9 Schizoaffective disorder, unspecified; I10 Essential (primary) hypertension; J44.9 Chronic obstructive pulmonary disease, unspecified; K21.9 Gastro-esophageal reflux disease without esophagitis; H54.61 Unqualified visual loss, right eye, normal vision left eye; H40.2231 Chronic angle-closure glaucoma, bilateral, mild stage; M54.50 Low back pain, unspecified; G89.29 Other chronic pain; N40.0 Benign prostatic hyperplasia without lower urinary tract symptoms; Z87.11 Personal history of peptic ulcer disease; Z91.410 Personal history of adult physical and sexual abuse; Z99.89 Dependence on other enabling machines and devices; Z88.0 Allergy status to penicillin; Z88.8 Allergy status to other drugs, medicaments and biological substances; Z91.018 Allergy to other foods
CPT/HCPCS: C9803-CS; U0003; U0005

== ENCOUNTER 2022-05-05 14:03 | Inpatient (IN) | payer OTHER ==
[2022-05-05] MEDS ORDERED: LOPERAMIDE HCL 2 MG CAPSULE PO PRN (14:15)
[2022-05-05] MEDS ORDERED: guaiFENesin 200 MG/10 ML 10 ML UNIT-DOSE CUPS PO PRN (14:15)
[2022-05-05] MEDS ORDERED: MAG HYDROX/AL HYDROX/SIMETH 30 ML UNIT-DOSE CUP PO PRN (14:15)
[2022-05-05] MEDS ORDERED: MAGNESIUM CITRATE 300 ML BOTTLE PO PRN (14:15)
[2022-05-05] MEDS: COLLOIDAL OATMEAL 1 BAR EACH TP PRN (15:30)
[2022-05-05] MEDS: APIXABAN 5 MG TABLET PO SCH (21:28)
[2022-05-05] MEDS: CARVEDILOL 6.25 MG TABLET (FP) PO SCH (21:28)
[2022-05-05] MEDS: FAMOTIDINE 20 MG TABLET PO SCH (21:28)
[2022-05-05] MEDS: TAMSULOSIN HCL 0.4 MG CAP PO SCH (21:28)
[2022-05-05] MEDS: hydrOXYzine PAMOATE 25 MG CAPSULE (FP) PO PRN (21:28)
[2022-05-05] MEDS: OLANZapine 10 MG TABLET PO SCH (21:28)
[2022-05-05] MEDS: traZODone HCL 100 MG TABLET (FP) PO SCH (21:28)
[2022-05-05] MEDS: MELATONIN 5 MG TABLETS PO SCH (21:29)
[2022-05-05] MEDS: THIAMINE HCL 100 MG TABLET (FP) PO SCH (21:29)
[2022-05-05] MEDS: BUDESONIDE/FORMETEROL FUMARATE 80/4.5 mcg INHALER IH SCH (21:31)
[2022-05-05] MEDS: TIMOLOL 0.5% OPHTHALMIC SOL 5 ML BOTTLE OU SCH (21:31)
[2022-05-05] MEDS: LATANOPROST 0.005% OPHTH SOLN 2.5ML BOTTLE OU SCH (21:32)
[2022-05-06] MEDS: ACETAMINOPHEN 325 MG TABLET (FP) PO PRN ×2 (06:12→21:36)
[2022-05-06] MEDS: METHOCARBAMOL 500 MG TABLET PO PRN ×3 (06:12→21:36)
[2022-05-06] MEDS ORDERED: SENNOSIDES 8.6MG TABLET (FP) PO PRN (10:00)
[2022-05-06] MEDS: BUDESONIDE/FORMETEROL FUMARATE 80/4.5 mcg INHALER IH SCH ×2 (10:42→21:41)
[2022-05-06] MEDS: CARVEDILOL 6.25 MG TABLET (FP) PO SCH ×2 (10:43→21:34)
[2022-05-06] MEDS: ALBUTEROL SO4 HFA INHALER IH PRN (10:43)
[2022-05-06] MEDS: FOLIC ACID 1 MG TABLET (FP) PO SCH (10:44)
[2022-05-06] MEDS: LORATADINE 10 MG TABLET PO SCH (10:44)
[2022-05-06] MEDS: APIXABAN 5 MG TABLET PO SCH ×2 (10:44→21:33)
[2022-05-06] MEDS: PRENATAL VITAMINS W/ FOLIC ACID TABLET (FP) PO SCH (10:44)
[2022-05-06] MEDS: FAMOTIDINE 20 MG TABLET PO SCH ×2 (10:44→21:34)
[2022-05-06] MEDS: TIMOLOL 0.5% OPHTHALMIC SOL 5 ML BOTTLE OU SCH ×2 (10:46→21:41)
[2022-05-06] MEDS: LISINOPRIL 5 MG TABLET PO SCH (10:46)
[2022-05-06] MEDS: LIDOCAINE 5% TOPICAL PATCH TP SCH (10:48)
[2022-05-06] MEDS: TAMSULOSIN HCL 0.4 MG CAP PO SCH (21:33)
[2022-05-06] MEDS: traZODone HCL 100 MG TABLET (FP) PO SCH (21:33)
[2022-05-06] MEDS: OLANZapine 10 MG TABLET PO SCH (21:34)
[2022-05-06] MEDS: MELATONIN 5 MG TABLETS PO SCH (21:34)
[2022-05-06] MEDS: THIAMINE HCL 100 MG TABLET (FP) PO SCH (21:34)
[2022-05-06] MEDS: LATANOPROST 0.005% OPHTH SOLN 2.5ML BOTTLE OU SCH (21:39)
[2022-05-06] MEDS: LIDOCAINE PATCH REMOVAL MC SCH (21:41)
[2022-05-07] MEDS: FOLIC ACID 1 MG TABLET (FP) PO SCH (09:51)
[2022-05-07] MEDS: LISINOPRIL 5 MG TABLET PO SCH (09:52)
[2022-05-07] MEDS: LORATADINE 10 MG TABLET PO SCH (09:52)
[2022-05-07] MEDS: PRENATAL VITAMINS W/ FOLIC ACID TABLET (FP) PO SCH (09:52)
[2022-05-07] MEDS: FAMOTIDINE 20 MG TABLET PO SCH ×2 (09:52→21:41)
[2022-05-07] MEDS: APIXABAN 5 MG TABLET PO SCH ×2 (09:52→21:41)
[2022-05-07] MEDS: CARVEDILOL 6.25 MG TABLET (FP) PO SCH ×2 (09:53→21:41)
[2022-05-07] MEDS: ACETAMINOPHEN 325 MG TABLET (FP) PO PRN ×2 (09:55→21:42)
[2022-05-07] MEDS: METHOCARBAMOL 500 MG TABLET PO PRN ×2 (09:57→21:42)
[2022-05-07] MEDS: LIDOCAINE 5% TOPICAL PATCH TP SCH (10:42)
[2022-05-07] MEDS: TIMOLOL 0.5% OPHTHALMIC SOL 5 ML BOTTLE OU SCH ×3 (10:43→21:44)
[2022-05-07] MEDS: BUDESONIDE/FORMETEROL FUMARATE 80/4.5 mcg INHALER IH SCH ×2 (10:43→21:44)
[2022-05-07] MEDS: NICOTINE 10 MG CARTRIDGE (INHALER) IH PRN (18:02)
[2022-05-07] MEDS: hydrOXYzine PAMOATE 25 MG CAPSULE (FP) PO PRN (21:41)
[2022-05-07] MEDS: TAMSULOSIN HCL 0.4 MG CAP PO SCH (21:41)
[2022-05-07] MEDS: LIDOCAINE PATCH REMOVAL MC SCH (21:41)
[2022-05-07] MEDS: OLANZapine 10 MG TABLET PO SCH (21:41)
[2022-05-07] MEDS: THIAMINE HCL 100 MG TABLET (FP) PO SCH (21:41)
[2022-05-07] MEDS: MELATONIN 5 MG TABLETS PO SCH (21:41)
[2022-05-07] MEDS: traZODone HCL 100 MG TABLET (FP) PO SCH (21:41)
[2022-05-07] MEDS: LATANOPROST 0.005% OPHTH SOLN 2.5ML BOTTLE OU SCH (21:44)
[2022-05-08] MEDS: TIMOLOL 0.5% OPHTHALMIC SOL 5 ML BOTTLE OU SCH ×3 (06:39→21:52)
[2022-05-08] MEDS: LISINOPRIL 5 MG TABLET PO SCH (10:38)
[2022-05-08] MEDS: FOLIC ACID 1 MG TABLET (FP) PO SCH (10:39)
[2022-05-08] MEDS: FAMOTIDINE 20 MG TABLET PO SCH ×2 (10:39→21:46)
[2022-05-08] MEDS: APIXABAN 5 MG TABLET PO SCH ×2 (10:39→21:46)
[2022-05-08] MEDS: LORATADINE 10 MG TABLET PO SCH (10:39)
[2022-05-08] MEDS: PRENATAL VITAMINS W/ FOLIC ACID TABLET (FP) PO SCH (10:39)
[2022-05-08] MEDS: ACETAMINOPHEN 325 MG TABLET (FP) PO PRN ×2 (10:41→21:48)
[2022-05-08] MEDS: CARVEDILOL 6.25 MG TABLET (FP) PO SCH ×2 (10:44→21:51)
[2022-05-08] MEDS: BUDESONIDE/FORMETEROL FUMARATE 80/4.5 mcg INHALER IH SCH ×2 (10:44→21:51)
[2022-05-08] MEDS: LIDOCAINE 5% TOPICAL PATCH TP SCH (10:45)
[2022-05-08] MEDS: ALBUTEROL SO4 HFA INHALER IH PRN (19:57)
[2022-05-08] MEDS: THIAMINE HCL 100 MG TABLET (FP) PO SCH (21:46)
[2022-05-08] MEDS: traZODone HCL 100 MG TABLET (FP) PO SCH (21:46)
[2022-05-08] MEDS: MELATONIN 5 MG TABLETS PO SCH (21:46)
[2022-05-08] MEDS: OLANZapine 10 MG TABLET PO SCH (21:46)
[2022-05-08] MEDS: METHOCARBAMOL 500 MG TABLET PO PRN (21:48)
[2022-05-08] MEDS: TAMSULOSIN HCL 0.4 MG CAP PO SCH (21:51)
[2022-05-08] MEDS: LIDOCAINE PATCH REMOVAL MC SCH (21:51)
[2022-05-08] MEDS: LATANOPROST 0.005% OPHTH SOLN 2.5ML BOTTLE OU SCH (21:52)
[2022-05-09] MEDS: TIMOLOL 0.5% OPHTHALMIC SOL 5 ML BOTTLE OU SCH ×3 (06:43→21:47)
[2022-05-09] MEDS: ALBUTEROL SO4 HFA INHALER IH PRN (10:54)
[2022-05-09] MEDS: BUDESONIDE/FORMETEROL FUMARATE 80/4.5 mcg INHALER IH SCH ×2 (10:54→21:47)
[2022-05-09] MEDS: LORATADINE 10 MG TABLET PO SCH (10:55)
[2022-05-09] MEDS: FAMOTIDINE 20 MG TABLET PO SCH ×2 (10:55→21:43)
[2022-05-09] MEDS: LISINOPRIL 5 MG TABLET PO SCH (10:55)
[2022-05-09] MEDS: PRENATAL VITAMINS W/ FOLIC ACID TABLET (FP) PO SCH (10:56)
[2022-05-09] MEDS: LIDOCAINE 5% TOPICAL PATCH TP SCH (10:56)
[2022-05-09] MEDS: CARVEDILOL 6.25 MG TABLET (FP) PO SCH ×2 (10:56→21:43)
[2022-05-09] MEDS: ACETAMINOPHEN 325 MG TABLET (FP) PO PRN ×2 (10:59→21:45)
[2022-05-09] MEDS: SODIUM CHLORIDE NASAL SPRAY 44 ML BOTTLE NS PRN (11:42)
[2022-05-09] MEDS: APIXABAN 5 MG TABLET PO SCH ×2 (12:11→21:43)
[2022-05-09] MEDS: FOLIC ACID 1 MG TABLET (FP) PO SCH (12:11)
[2022-05-09] MEDS: NICOTINE 10 MG CARTRIDGE (INHALER) IH PRN (18:15)
[2022-05-09] MEDS: traZODone HCL 100 MG TABLET (FP) PO SCH (21:43)
[2022-05-09] MEDS: OLANZapine 10 MG TABLET PO SCH (21:43)
[2022-05-09] MEDS: TAMSULOSIN HCL 0.4 MG CAP PO SCH (21:43)
[2022-05-09] MEDS: THIAMINE HCL 100 MG TABLET (FP) PO SCH (21:44)
[2022-05-09] MEDS: LIDOCAINE PATCH REMOVAL MC SCH (21:44)
[2022-05-09] MEDS: MELATONIN 5 MG TABLETS PO SCH (21:44)
[2022-05-09] MEDS: METHOCARBAMOL 500 MG TABLET PO PRN (21:45)
[2022-05-09] MEDS: LATANOPROST 0.005% OPHTH SOLN 2.5ML BOTTLE OU SCH (21:47)
[2022-05-10] MEDS: METHOCARBAMOL 500 MG TABLET PO PRN ×2 (11:01→21:46)
[2022-05-10] MEDS: LISINOPRIL 5 MG TABLET PO SCH (11:01)
[2022-05-10] MEDS: FAMOTIDINE 20 MG TABLET PO SCH ×2 (11:01→21:46)
[2022-05-10] MEDS: LORATADINE 10 MG TABLET PO SCH (11:01)
[2022-05-10] MEDS: FOLIC ACID 1 MG TABLET (FP) PO SCH (11:02)
[2022-05-10] MEDS: PRENATAL VITAMINS W/ FOLIC ACID TABLET (FP) PO SCH (11:02)
[2022-05-10] MEDS: APIXABAN 5 MG TABLET PO SCH ×2 (11:02→21:46)
[2022-05-10] MEDS: CARVEDILOL 6.25 MG TABLET (FP) PO SCH ×2 (11:04→21:46)
[2022-05-10] MEDS: TIMOLOL 0.5% OPHTHALMIC SOL 5 ML BOTTLE OU SCH ×3 (11:04→21:47)
[2022-05-10] MEDS: hydrOXYzine PAMOATE 25 MG CAPSULE (FP) PO PRN ×2 (11:04→21:46)
[2022-05-10] MEDS: BUDESONIDE/FORMETEROL FUMARATE 80/4.5 mcg INHALER IH SCH ×2 (11:04→21:47)
[2022-05-10] MEDS: LIDOCAINE 5% TOPICAL PATCH TP SCH (11:21)
[2022-05-10] MEDS: THIAMINE HCL 100 MG TABLET (FP) PO SCH (21:46)
[2022-05-10] MEDS: MELATONIN 5 MG TABLETS PO SCH (21:46)
[2022-05-10] MEDS: traZODone HCL 100 MG TABLET (FP) PO SCH (21:46)
[2022-05-10] MEDS: OLANZapine 10 MG TABLET PO SCH (21:46)
[2022-05-10] MEDS: TAMSULOSIN HCL 0.4 MG CAP PO SCH (21:46)
[2022-05-10] MEDS: LIDOCAINE PATCH REMOVAL MC SCH (21:47)
[2022-05-10] MEDS: LATANOPROST 0.005% OPHTH SOLN 2.5ML BOTTLE OU SCH (21:47)
[2022-05-11] MEDS: APIXABAN 5 MG TABLET PO SCH ×2 (10:57→21:37)
[2022-05-11] MEDS: CARVEDILOL 6.25 MG TABLET (FP) PO SCH ×2 (10:57→21:37)
[2022-05-11] MEDS: PRENATAL VITAMINS W/ FOLIC ACID TABLET (FP) PO SCH (10:57)
[2022-05-11] MEDS: FOLIC ACID 1 MG TABLET (FP) PO SCH (10:57)
[2022-05-11] MEDS: FAMOTIDINE 20 MG TABLET PO SCH ×2 (10:57→21:37)
[2022-05-11] MEDS: METHOCARBAMOL 500 MG TABLET PO PRN ×2 (10:57→21:37)
[2022-05-11] MEDS: LORATADINE 10 MG TABLET PO SCH (10:57)
[2022-05-11] MEDS: hydrOXYzine PAMOATE 25 MG CAPSULE (FP) PO PRN ×2 (10:59→21:37)
[2022-05-11] MEDS: ACETAMINOPHEN 325 MG TABLET (FP) PO PRN ×2 (11:00→21:37)
[2022-05-11] MEDS: TIMOLOL 0.5% OPHTHALMIC SOL 5 ML BOTTLE OU SCH ×3 (11:01→21:41)
[2022-05-11] MEDS: BUDESONIDE/FORMETEROL FUMARATE 80/4.5 mcg INHALER IH SCH ×2 (11:01→21:40)
[2022-05-11] MEDS: LIDOCAINE 5% TOPICAL PATCH TP SCH (11:01)
[2022-05-11] MEDS: LISINOPRIL 5 MG TABLET PO SCH (11:01)
[2022-05-11] MEDS: NICOTINE 10 MG CARTRIDGE (INHALER) IH PRN (20:02)
[2022-05-11] MEDS: THIAMINE HCL 100 MG TABLET (FP) PO SCH (21:36)
[2022-05-11] MEDS: MELATONIN 5 MG TABLETS PO SCH (21:36)
[2022-05-11] MEDS: TAMSULOSIN HCL 0.4 MG CAP PO SCH (21:37)
[2022-05-11] MEDS: traZODone HCL 100 MG TABLET (FP) PO SCH (21:37)
[2022-05-11] MEDS: OLANZapine 10 MG TABLET PO SCH (21:37)
[2022-05-11] MEDS: LIDOCAINE PATCH REMOVAL MC SCH (21:39)
[2022-05-11] MEDS: LATANOPROST 0.005% OPHTH SOLN 2.5ML BOTTLE OU SCH (21:40)
[2022-05-12] MEDS: ACETAMINOPHEN 325 MG TABLET (FP) PO PRN ×2 (11:14→21:37)
[2022-05-12] MEDS: LISINOPRIL 5 MG TABLET PO SCH (11:14)
[2022-05-12] MEDS: FAMOTIDINE 20 MG TABLET PO SCH ×2 (11:16→21:37)
[2022-05-12] MEDS: FOLIC ACID 1 MG TABLET (FP) PO SCH (11:16)
[2022-05-12] MEDS: LORATADINE 10 MG TABLET PO SCH (11:16)
[2022-05-12] MEDS: LIDOCAINE 5% TOPICAL PATCH TP SCH (11:16)
[2022-05-12] MEDS: PRENATAL VITAMINS W/ FOLIC ACID TABLET (FP) PO SCH (11:16)
[2022-05-12] MEDS: APIXABAN 5 MG TABLET PO SCH ×2 (11:16→21:37)
[2022-05-12] MEDS: hydrOXYzine PAMOATE 25 MG CAPSULE (FP) PO PRN ×2 (11:16→21:37)
[2022-05-12] MEDS: CARVEDILOL 6.25 MG TABLET (FP) PO SCH ×2 (11:17→21:37)
[2022-05-12] MEDS: TIMOLOL 0.5% OPHTHALMIC SOL 5 ML BOTTLE OU SCH ×2 (11:19→18:50)
[2022-05-12] MEDS: BUDESONIDE/FORMETEROL FUMARATE 80/4.5 mcg INHALER IH SCH ×2 (11:19→21:38)
[2022-05-12] MEDS: NICOTINE 10 MG CARTRIDGE (INHALER) IH PRN (17:04)
[2022-05-12] MEDS: THIAMINE HCL 100 MG TABLET (FP) PO SCH (21:36)
[2022-05-12] MEDS: TAMSULOSIN HCL 0.4 MG CAP PO SCH (21:37)
[2022-05-12] MEDS: OLANZapine 10 MG TABLET PO SCH (21:37)
[2022-05-12] MEDS: METHOCARBAMOL 500 MG TABLET PO PRN (21:37)
[2022-05-12] MEDS: traZODone HCL 100 MG TABLET (FP) PO SCH (21:37)
[2022-05-12] MEDS: MELATONIN 5 MG TABLETS PO SCH (21:37)
[2022-05-12] MEDS: LIDOCAINE PATCH REMOVAL MC SCH (21:38)
[2022-05-12] MEDS: LATANOPROST 0.005% OPHTH SOLN 2.5ML BOTTLE OU SCH (21:39)
[2022-05-13] MEDS: FAMOTIDINE 20 MG TABLET PO SCH ×2 (11:18→21:51)
[2022-05-13] MEDS: APIXABAN 5 MG TABLET PO SCH ×2 (11:18→21:51)
[2022-05-13] MEDS: ACETAMINOPHEN 325 MG TABLET (FP) PO PRN (11:18)
[2022-05-13] MEDS: LORATADINE 10 MG TABLET PO SCH (11:18)
[2022-05-13] MEDS: FOLIC ACID 1 MG TABLET (FP) PO SCH (11:18)
[2022-05-13] MEDS: LIDOCAINE 5% TOPICAL PATCH TP SCH (11:21)
[2022-05-13] MEDS: BUDESONIDE/FORMETEROL FUMARATE 80/4.5 mcg INHALER IH SCH ×2 (11:22→21:53)
[2022-05-13] MEDS: CARVEDILOL 6.25 MG TABLET (FP) PO SCH ×2 (11:22→21:51)
[2022-05-13] MEDS: TIMOLOL 0.5% OPHTHALMIC SOL 5 ML BOTTLE OU SCH ×2 (11:22→18:20)
[2022-05-13] MEDS: PRENATAL VITAMINS W/ FOLIC ACID TABLET (FP) PO SCH (11:22)
[2022-05-13] MEDS: LISINOPRIL 5 MG TABLET PO SCH (11:22)
[2022-05-13] MEDS: NICOTINE 10 MG CARTRIDGE (INHALER) IH PRN (20:18)
[2022-05-13] MEDS: METHOCARBAMOL 500 MG TABLET PO PRN (21:51)
[2022-05-13] MEDS: MELATONIN 5 MG TABLETS PO SCH (21:51)
[2022-05-13] MEDS: THIAMINE HCL 100 MG TABLET (FP) PO SCH (21:51)
[2022-05-13] MEDS: OLANZapine 10 MG TABLET PO SCH (21:51)
[2022-05-13] MEDS: TAMSULOSIN HCL 0.4 MG CAP PO SCH (21:51)
[2022-05-13] MEDS: traZODone HCL 100 MG TABLET (FP) PO SCH (21:51)
[2022-05-13] MEDS: hydrOXYzine PAMOATE 25 MG CAPSULE (FP) PO PRN (21:51)
[2022-05-13] MEDS: MAGNESIUM HYDROX 2400MG/30ML ORAL SUSPENSION 30 ML CUP PO PRN (21:52)
[2022-05-13] MEDS: LIDOCAINE PATCH REMOVAL MC SCH (21:54)
[2022-05-13] MEDS: LATANOPROST 0.005% OPHTH SOLN 2.5ML BOTTLE OU SCH (21:55)
[2022-05-14] MEDS: BUDESONIDE/FORMETEROL FUMARATE 80/4.5 mcg INHALER IH SCH ×2 (11:14→22:01)
[2022-05-14] MEDS: FOLIC ACID 1 MG TABLET (FP) PO SCH (11:15)
[2022-05-14] MEDS: hydrOXYzine PAMOATE 25 MG CAPSULE (FP) PO PRN ×2 (11:15→21:58)
[2022-05-14] MEDS: LORATADINE 10 MG TABLET PO SCH (11:15)
[2022-05-14] MEDS: APIXABAN 5 MG TABLET PO SCH ×2 (11:16→21:57)
[2022-05-14] MEDS: PRENATAL VITAMINS W/ FOLIC ACID TABLET (FP) PO SCH (11:17)
[2022-05-14] MEDS: LIDOCAINE 5% TOPICAL PATCH TP SCH (11:17)
[2022-05-14] MEDS: CARVEDILOL 6.25 MG TABLET (FP) PO SCH ×2 (11:17→22:04)
[2022-05-14] MEDS: FAMOTIDINE 20 MG TABLET PO SCH ×2 (11:18→21:57)
[2022-05-14] MEDS: LISINOPRIL 5 MG TABLET PO SCH (11:19)
[2022-05-14] MEDS: ACETAMINOPHEN 325 MG TABLET (FP) PO PRN ×2 (11:19→21:59)
[2022-05-14] MEDS: METHOCARBAMOL 500 MG TABLET PO PRN ×2 (11:21→21:57)
[2022-05-14] MEDS: TIMOLOL 0.5% OPHTHALMIC SOL 5 ML BOTTLE OU SCH ×2 (11:21→18:06)
[2022-05-14] MEDS: SODIUM CHLORIDE NASAL SPRAY 44 ML BOTTLE NS PRN (11:21)
[2022-05-14] MEDS: ALBUTEROL SO4 HFA INHALER IH PRN ×2 (13:44→22:00)
[2022-05-14] MEDS: NICOTINE 10 MG CARTRIDGE (INHALER) IH PRN (13:49)
[2022-05-14] MEDS: traZODone HCL 100 MG TABLET (FP) PO SCH (21:57)
[2022-05-14] MEDS: THIAMINE HCL 100 MG TABLET (FP) PO SCH (21:57)
[2022-05-14] MEDS: TAMSULOSIN HCL 0.4 MG CAP PO SCH (21:57)
[2022-05-14] MEDS: OLANZapine 10 MG TABLET PO SCH (21:57)
[2022-05-14] MEDS: MELATONIN 5 MG TABLETS PO SCH (21:58)
[2022-05-14] MEDS: LATANOPROST 0.005% OPHTH SOLN 2.5ML BOTTLE OU SCH (22:00)
[2022-05-14] MEDS: LIDOCAINE PATCH REMOVAL MC SCH (22:03)
[2022-05-15] MEDS: FAMOTIDINE 20 MG TABLET PO SCH ×2 (11:00→21:49)
[2022-05-15] MEDS: hydrOXYzine PAMOATE 25 MG CAPSULE (FP) PO PRN ×2 (11:00→21:50)
[2022-05-15] MEDS: PRENATAL VITAMINS W/ FOLIC ACID TABLET (FP) PO SCH (11:00)
[2022-05-15] MEDS: LORATADINE 10 MG TABLET PO SCH (11:00)
[2022-05-15] MEDS: LISINOPRIL 5 MG TABLET PO SCH (11:00)
[2022-05-15] MEDS: FOLIC ACID 1 MG TABLET (FP) PO SCH (11:00)
[2022-05-15] MEDS: METHOCARBAMOL 500 MG TABLET PO PRN ×2 (11:01→21:49)
[2022-05-15] MEDS: TIMOLOL 0.5% OPHTHALMIC SOL 5 ML BOTTLE OU SCH ×2 (11:01→17:38)
[2022-05-15] MEDS: APIXABAN 5 MG TABLET PO SCH ×2 (11:01→21:49)
[2022-05-15] MEDS: BUDESONIDE/FORMETEROL FUMARATE 80/4.5 mcg INHALER IH SCH ×2 (11:01→21:50)
[2022-05-15] MEDS: CARVEDILOL 6.25 MG TABLET (FP) PO SCH ×2 (11:02→21:48)
[2022-05-15] MEDS: LIDOCAINE 5% TOPICAL PATCH TP SCH (11:02)
[2022-05-15] MEDS: ACETAMINOPHEN 325 MG TABLET (FP) PO PRN (11:03)
[2022-05-15] MEDS: NICOTINE 10 MG CARTRIDGE (INHALER) IH PRN (12:04)
[2022-05-15] MEDS: TAMSULOSIN HCL 0.4 MG CAP PO SCH (21:48)
[2022-05-15] MEDS: THIAMINE HCL 100 MG TABLET (FP) PO SCH (21:49)
[2022-05-15] MEDS: traZODone HCL 100 MG TABLET (FP) PO SCH (21:49)
[2022-05-15] MEDS: MELATONIN 5 MG TABLETS PO SCH (21:49)
[2022-05-15] MEDS: LIDOCAINE PATCH REMOVAL MC SCH (21:49)
[2022-05-15] MEDS: OLANZapine 10 MG TABLET PO SCH (21:51)
[2022-05-15] MEDS: LATANOPROST 0.005% OPHTH SOLN 2.5ML BOTTLE OU SCH (21:51)
[2022-05-16] MEDS: hydrOXYzine PAMOATE 25 MG CAPSULE (FP) PO PRN ×2 (11:03→21:21)
[2022-05-16] MEDS: FAMOTIDINE 20 MG TABLET PO SCH ×2 (11:03→21:21)
[2022-05-16] MEDS: ACETAMINOPHEN 325 MG TABLET (FP) PO PRN ×2 (11:03→21:21)
[2022-05-16] MEDS: CARVEDILOL 6.25 MG TABLET (FP) PO SCH ×2 (11:03→21:21)
[2022-05-16] MEDS: LORATADINE 10 MG TABLET PO SCH (11:03)
[2022-05-16] MEDS: PRENATAL VITAMINS W/ FOLIC ACID TABLET (FP) PO SCH (11:04)
[2022-05-16] MEDS: FOLIC ACID 1 MG TABLET (FP) PO SCH (11:04)
[2022-05-16] MEDS: LIDOCAINE 5% TOPICAL PATCH TP SCH (11:04)
[2022-05-16] MEDS: APIXABAN 5 MG TABLET PO SCH ×2 (11:04→21:20)
[2022-05-16] MEDS: LISINOPRIL 5 MG TABLET PO SCH (11:06)
[2022-05-16] MEDS: BUDESONIDE/FORMETEROL FUMARATE 80/4.5 mcg INHALER IH SCH ×2 (11:07→21:22)
[2022-05-16] MEDS: TIMOLOL 0.5% OPHTHALMIC SOL 5 ML BOTTLE OU SCH ×2 (11:07→17:15)
[2022-05-16] MEDS: MAGNESIUM HYDROX 2400MG/30ML ORAL SUSPENSION 30 ML CUP PO PRN (12:38)
[2022-05-16] MEDS: NICOTINE 10 MG CARTRIDGE (INHALER) IH PRN (17:08)
[2022-05-16] MEDS: METHOCARBAMOL 500 MG TABLET PO PRN (21:20)
[2022-05-16] MEDS: MELATONIN 5 MG TABLETS PO SCH (21:20)
[2022-05-16] MEDS: OLANZapine 10 MG TABLET PO SCH (21:20)
[2022-05-16] MEDS: TAMSULOSIN HCL 0.4 MG CAP PO SCH (21:21)
[2022-05-16] MEDS: THIAMINE HCL 100 MG TABLET (FP) PO SCH (21:21)
[2022-05-16] MEDS: traZODone HCL 100 MG TABLET (FP) PO SCH (21:21)
[2022-05-16] MEDS: LIDOCAINE PATCH REMOVAL MC SCH (21:22)
[2022-05-16] MEDS: LATANOPROST 0.005% OPHTH SOLN 2.5ML BOTTLE OU SCH (21:23)
[2022-05-17] MEDS: BUDESONIDE/FORMETEROL FUMARATE 80/4.5 mcg INHALER IH SCH ×2 (11:30→21:45)
[2022-05-17] MEDS: ALBUTEROL SO4 HFA INHALER IH PRN (11:30)
[2022-05-17] MEDS: SODIUM CHLORIDE NASAL SPRAY 44 ML BOTTLE NS PRN (11:31)
[2022-05-17] MEDS: CARVEDILOL 6.25 MG TABLET (FP) PO SCH ×2 (11:32→21:42)
[2022-05-17] MEDS: FAMOTIDINE 20 MG TABLET PO SCH ×2 (11:32→21:42)
[2022-05-17] MEDS: APIXABAN 5 MG TABLET PO SCH ×2 (11:32→21:42)
[2022-05-17] MEDS: LORATADINE 10 MG TABLET PO SCH (11:32)
[2022-05-17] MEDS: PRENATAL VITAMINS W/ FOLIC ACID TABLET (FP) PO SCH (11:33)
[2022-05-17] MEDS: FOLIC ACID 1 MG TABLET (FP) PO SCH (11:33)
[2022-05-17] MEDS: LIDOCAINE 5% TOPICAL PATCH TP SCH (11:33)
[2022-05-17] MEDS: LISINOPRIL 5 MG TABLET PO SCH (11:33)
[2022-05-17] MEDS: TIMOLOL 0.5% OPHTHALMIC SOL 5 ML BOTTLE OU SCH ×2 (11:34→17:50)
[2022-05-17] MEDS: MAGNESIUM HYDROX 2400MG/30ML ORAL SUSPENSION 30 ML CUP PO PRN (11:37)
[2022-05-17] MEDS: COLLOIDAL OATMEAL 1 BAR EACH TP PRN (12:08)
[2022-05-17] MEDS: NICOTINE 10 MG CARTRIDGE (INHALER) IH PRN (16:21)
[2022-05-17] MEDS: ACETAMINOPHEN 325 MG TABLET (FP) PO PRN (21:42)
[2022-05-17] MEDS: traZODone HCL 100 MG TABLET (FP) PO SCH (21:42)
[2022-05-17] MEDS: TAMSULOSIN HCL 0.4 MG CAP PO SCH (21:42)
[2022-05-17] MEDS: METHOCARBAMOL 500 MG TABLET PO PRN (21:42)
[2022-05-17] MEDS: MELATONIN 5 MG TABLETS PO SCH (21:42)
[2022-05-17] MEDS: THIAMINE HCL 100 MG TABLET (FP) PO SCH (21:42)
[2022-05-17] MEDS: hydrOXYzine PAMOATE 25 MG CAPSULE (FP) PO PRN (21:42)
[2022-05-17] MEDS: OLANZapine 10 MG TABLET PO SCH (21:42)
[2022-05-17] MEDS: LIDOCAINE PATCH REMOVAL MC SCH (21:44)
[2022-05-17] MEDS: LATANOPROST 0.005% OPHTH SOLN 2.5ML BOTTLE OU SCH (21:45)
[2022-05-18] MEDS: LORATADINE 10 MG TABLET PO SCH (10:55)
[2022-05-18] MEDS: FAMOTIDINE 20 MG TABLET PO SCH ×2 (10:55→21:23)
[2022-05-18] MEDS: LIDOCAINE 5% TOPICAL PATCH TP SCH (10:55)
[2022-05-18] MEDS: APIXABAN 5 MG TABLET PO SCH ×2 (10:55→21:23)
[2022-05-18] MEDS: CARVEDILOL 6.25 MG TABLET (FP) PO SCH ×2 (10:55→21:25)
[2022-05-18] MEDS: PRENATAL VITAMINS W/ FOLIC ACID TABLET (FP) PO SCH (10:55)
[2022-05-18] MEDS: FOLIC ACID 1 MG TABLET (FP) PO SCH (10:55)
[2022-05-18] MEDS: BUDESONIDE/FORMETEROL FUMARATE 80/4.5 mcg INHALER IH SCH ×2 (10:57→21:25)
[2022-05-18] MEDS: LISINOPRIL 5 MG TABLET PO SCH (10:57)
[2022-05-18] MEDS: TIMOLOL 0.5% OPHTHALMIC SOL 5 ML BOTTLE OU SCH ×2 (10:58→18:13)
[2022-05-18] MEDS: ACETAMINOPHEN 325 MG TABLET (FP) PO PRN ×2 (11:00→21:24)
[2022-05-18] MEDS: METHOCARBAMOL 500 MG TABLET PO PRN ×2 (11:01→21:23)
[2022-05-18] MEDS: hydrOXYzine PAMOATE 25 MG CAPSULE (FP) PO PRN ×2 (11:01→21:23)
[2022-05-18] MEDS: NICOTINE 10 MG CARTRIDGE (INHALER) IH PRN (11:03)
[2022-05-18] MEDS: TAMSULOSIN HCL 0.4 MG CAP PO SCH (21:23)
[2022-05-18] MEDS: THIAMINE HCL 100 MG TABLET (FP) PO SCH (21:23)
[2022-05-18] MEDS: MELATONIN 5 MG TABLETS PO SCH (21:23)
[2022-05-18] MEDS: traZODone HCL 100 MG TABLET (FP) PO SCH (21:23)
[2022-05-18] MEDS: OLANZapine 10 MG TABLET PO SCH (21:23)
[2022-05-18] MEDS: LIDOCAINE PATCH REMOVAL MC SCH (21:25)
[2022-05-18] MEDS: LATANOPROST 0.005% OPHTH SOLN 2.5ML BOTTLE OU SCH (21:25)
[2022-05-19] MEDS: FOLIC ACID 1 MG TABLET (FP) PO SCH (10:23)
[2022-05-19] MEDS: FAMOTIDINE 20 MG TABLET PO SCH ×2 (10:23→21:41)
[2022-05-19] MEDS: APIXABAN 5 MG TABLET PO SCH ×2 (10:23→21:41)
[2022-05-19] MEDS: LORATADINE 10 MG TABLET PO SCH (10:23)
[2022-05-19] MEDS: PRENATAL VITAMINS W/ FOLIC ACID TABLET (FP) PO SCH (10:24)
[2022-05-19] MEDS: LISINOPRIL 5 MG TABLET PO SCH (10:24)
[2022-05-19] MEDS: hydrOXYzine PAMOATE 25 MG CAPSULE (FP) PO PRN (10:24)
[2022-05-19] MEDS: ACETAMINOPHEN 325 MG TABLET (FP) PO PRN ×2 (10:24→21:44)
[2022-05-19] MEDS: CARVEDILOL 6.25 MG TABLET (FP) PO SCH ×2 (10:24→21:43)
[2022-05-19] MEDS: LIDOCAINE 5% TOPICAL PATCH TP SCH (10:25)
[2022-05-19] MEDS: BUDESONIDE/FORMETEROL FUMARATE 80/4.5 mcg INHALER IH SCH ×2 (10:26→21:41)
[2022-05-19] MEDS: TIMOLOL 0.5% OPHTHALMIC SOL 5 ML BOTTLE OU SCH ×2 (10:27→18:18)
[2022-05-19] MEDS: METHOCARBAMOL 500 MG TABLET PO PRN ×2 (10:28→21:43)
[2022-05-19] MEDS: NICOTINE 10 MG CARTRIDGE (INHALER) IH PRN (12:16)
[2022-05-19] MEDS: TAMSULOSIN HCL 0.4 MG CAP PO SCH (21:40)
[2022-05-19] MEDS: traZODone HCL 100 MG TABLET (FP) PO SCH (21:40)
[2022-05-19] MEDS: OLANZapine 10 MG TABLET PO SCH (21:41)
[2022-05-19] MEDS: MELATONIN 5 MG TABLETS PO SCH (21:41)
[2022-05-19] MEDS: THIAMINE HCL 100 MG TABLET (FP) PO SCH (21:41)
[2022-05-19] MEDS: LATANOPROST 0.005% OPHTH SOLN 2.5ML BOTTLE OU SCH (21:42)
[2022-05-19] MEDS: LIDOCAINE PATCH REMOVAL MC SCH (21:43)
[2022-05-20] MEDS: FAMOTIDINE 20 MG TABLET PO SCH ×2 (10:16→21:25)
[2022-05-20] MEDS: FOLIC ACID 1 MG TABLET (FP) PO SCH (10:16)
[2022-05-20] MEDS: LISINOPRIL 5 MG TABLET PO SCH (10:16)
[2022-05-20] MEDS: CARVEDILOL 6.25 MG TABLET (FP) PO SCH ×2 (10:16→21:25)
[2022-05-20] MEDS: APIXABAN 5 MG TABLET PO SCH ×2 (10:16→21:25)
[2022-05-20] MEDS: PRENATAL VITAMINS W/ FOLIC ACID TABLET (FP) PO SCH (10:16)
[2022-05-20] MEDS: ACETAMINOPHEN 325 MG TABLET (FP) PO PRN ×2 (10:18→21:26)
[2022-05-20] MEDS: LIDOCAINE 5% TOPICAL PATCH TP SCH (10:19)
[2022-05-20] MEDS: BUDESONIDE/FORMETEROL FUMARATE 80/4.5 mcg INHALER IH SCH ×2 (10:21→21:28)
[2022-05-20] MEDS: TIMOLOL 0.5% OPHTHALMIC SOL 5 ML BOTTLE OU SCH ×2 (10:21→18:35)
[2022-05-20] MEDS: LORATADINE 10 MG TABLET PO SCH (10:21)
[2022-05-20] MEDS: METHOCARBAMOL 500 MG TABLET PO PRN (21:24)
[2022-05-20] MEDS: traZODone HCL 100 MG TABLET (FP) PO SCH (21:25)
[2022-05-20] MEDS: hydrOXYzine PAMOATE 25 MG CAPSULE (FP) PO PRN (21:25)
[2022-05-20] MEDS: OLANZapine 10 MG TABLET PO SCH (21:25)
[2022-05-20] MEDS: TAMSULOSIN HCL 0.4 MG CAP PO SCH (21:25)
[2022-05-20] MEDS: MELATONIN 5 MG TABLETS PO SCH (21:25)
[2022-05-20] MEDS: THIAMINE HCL 100 MG TABLET (FP) PO SCH (21:26)
[2022-05-20] MEDS: LIDOCAINE PATCH REMOVAL MC SCH (21:28)
[2022-05-20] MEDS: LATANOPROST 0.005% OPHTH SOLN 2.5ML BOTTLE OU SCH (21:28)
[2022-05-21] MEDS: APIXABAN 5 MG TABLET PO SCH ×2 (10:59→21:39)
[2022-05-21] MEDS: hydrOXYzine PAMOATE 25 MG CAPSULE (FP) PO PRN ×2 (10:59→21:39)
[2022-05-21] MEDS: FAMOTIDINE 20 MG TABLET PO SCH ×2 (10:59→21:38)
[2022-05-21] MEDS: ACETAMINOPHEN 325 MG TABLET (FP) PO PRN ×2 (10:59→21:39)
[2022-05-21] MEDS: CARVEDILOL 6.25 MG TABLET (FP) PO SCH ×2 (10:59→21:39)
[2022-05-21] MEDS: FOLIC ACID 1 MG TABLET (FP) PO SCH (10:59)
[2022-05-21] MEDS: LORATADINE 10 MG TABLET PO SCH (10:59)
[2022-05-21] MEDS: PRENATAL VITAMINS W/ FOLIC ACID TABLET (FP) PO SCH (10:59)
[2022-05-21] MEDS: LISINOPRIL 5 MG TABLET PO SCH (11:00)
[2022-05-21] MEDS: TIMOLOL 0.5% OPHTHALMIC SOL 5 ML BOTTLE OU SCH ×2 (11:00→18:00)
[2022-05-21] MEDS: BUDESONIDE/FORMETEROL FUMARATE 80/4.5 mcg INHALER IH SCH ×2 (11:00→21:39)
[2022-05-21] MEDS: LIDOCAINE 5% TOPICAL PATCH TP SCH (11:07)
[2022-05-21] MEDS: TAMSULOSIN HCL 0.4 MG CAP PO SCH (21:38)
[2022-05-21] MEDS: THIAMINE HCL 100 MG TABLET (FP) PO SCH (21:38)
[2022-05-21] MEDS: MELATONIN 5 MG TABLETS PO SCH (21:38)
[2022-05-21] MEDS: METHOCARBAMOL 500 MG TABLET PO PRN (21:38)
[2022-05-21] MEDS: OLANZapine 10 MG TABLET PO SCH (21:39)
[2022-05-21] MEDS: traZODone HCL 100 MG TABLET (FP) PO SCH (21:39)
[2022-05-21] MEDS: LATANOPROST 0.005% OPHTH SOLN 2.5ML BOTTLE OU SCH (21:41)
[2022-05-21] MEDS: NICOTINE 10 MG CARTRIDGE (INHALER) IH PRN (21:41)
[2022-05-21] MEDS: LIDOCAINE PATCH REMOVAL MC SCH (21:41)
[2022-05-22] MEDS: LIDOCAINE 5% TOPICAL PATCH TP SCH (10:53)
[2022-05-22] MEDS: FOLIC ACID 1 MG TABLET (FP) PO SCH (10:53)
[2022-05-22] MEDS: PRENATAL VITAMINS W/ FOLIC ACID TABLET (FP) PO SCH (10:53)
[2022-05-22] MEDS: APIXABAN 5 MG TABLET PO SCH ×2 (10:53→21:34)
[2022-05-22] MEDS: FAMOTIDINE 20 MG TABLET PO SCH ×2 (10:53→21:34)
[2022-05-22] MEDS: LORATADINE 10 MG TABLET PO SCH (10:53)
[2022-05-22] MEDS: CARVEDILOL 6.25 MG TABLET (FP) PO SCH ×2 (10:54→21:34)
[2022-05-22] MEDS: LISINOPRIL 5 MG TABLET PO SCH (11:06)
[2022-05-22] MEDS: BUDESONIDE/FORMETEROL FUMARATE 80/4.5 mcg INHALER IH SCH ×2 (11:06→21:36)
[2022-05-22] MEDS: TIMOLOL 0.5% OPHTHALMIC SOL 5 ML BOTTLE OU SCH ×2 (11:06→18:00)
[2022-05-22] MEDS: THIAMINE HCL 100 MG TABLET (FP) PO SCH (21:34)
[2022-05-22] MEDS: hydrOXYzine PAMOATE 25 MG CAPSULE (FP) PO PRN (21:34)
[2022-05-22] MEDS: METHOCARBAMOL 500 MG TABLET PO PRN (21:34)
[2022-05-22] MEDS: ACETAMINOPHEN 325 MG TABLET (FP) PO PRN (21:34)
[2022-05-22] MEDS: MELATONIN 5 MG TABLETS PO SCH (21:34)
[2022-05-22] MEDS: OLANZapine 10 MG TABLET PO SCH (21:34)
[2022-05-22] MEDS: traZODone HCL 100 MG TABLET (FP) PO SCH (21:34)
[2022-05-22] MEDS: TAMSULOSIN HCL 0.4 MG CAP PO SCH (21:34)
[2022-05-22] MEDS: LIDOCAINE PATCH REMOVAL MC SCH (21:35)
[2022-05-22] MEDS: LATANOPROST 0.005% OPHTH SOLN 2.5ML BOTTLE OU SCH (21:36)
[2022-05-23] MEDS: APIXABAN 5 MG TABLET PO SCH ×2 (10:37→21:51)
[2022-05-23] MEDS: LORATADINE 10 MG TABLET PO SCH (10:37)
[2022-05-23] MEDS: LIDOCAINE 5% TOPICAL PATCH TP SCH (10:37)
[2022-05-23] MEDS: FAMOTIDINE 20 MG TABLET PO SCH ×2 (10:37→21:51)
[2022-05-23] MEDS: LISINOPRIL 5 MG TABLET PO SCH (10:37)
[2022-05-23] MEDS: FOLIC ACID 1 MG TABLET (FP) PO SCH (10:38)
[2022-05-23] MEDS: PRENATAL VITAMINS W/ FOLIC ACID TABLET (FP) PO SCH (10:38)
[2022-05-23] MEDS: BUDESONIDE/FORMETEROL FUMARATE 80/4.5 mcg INHALER IH SCH ×2 (10:38→21:53)
[2022-05-23] MEDS: CARVEDILOL 6.25 MG TABLET (FP) PO SCH ×2 (10:38→21:51)
[2022-05-23] MEDS: MAGNESIUM HYDROX 2400MG/30ML ORAL SUSPENSION 30 ML CUP PO PRN (10:40)
[2022-05-23] MEDS: ACETAMINOPHEN 325 MG TABLET (FP) PO PRN ×2 (10:40→21:52)
[2022-05-23] MEDS: METHOCARBAMOL 500 MG TABLET PO PRN ×2 (10:40→21:51)
[2022-05-23] MEDS: hydrOXYzine PAMOATE 25 MG CAPSULE (FP) PO PRN ×2 (10:41→21:53)
[2022-05-23] MEDS: TIMOLOL 0.5% OPHTHALMIC SOL 5 ML BOTTLE OU SCH ×2 (11:02→18:08)
[2022-05-23] MEDS: NICOTINE 10 MG CARTRIDGE (INHALER) IH PRN (13:05)
[2022-05-23] MEDS: traZODone HCL 100 MG TABLET (FP) PO SCH (21:51)
[2022-05-23] MEDS: TAMSULOSIN HCL 0.4 MG CAP PO SCH (21:52)
[2022-05-23] MEDS: OLANZapine 10 MG TABLET PO SCH (21:52)
[2022-05-23] MEDS: MELATONIN 5 MG TABLETS PO SCH (21:53)
[2022-05-23] MEDS: THIAMINE HCL 100 MG TABLET (FP) PO SCH (21:53)
[2022-05-23] MEDS: LATANOPROST 0.005% OPHTH SOLN 2.5ML BOTTLE OU SCH (21:53)
[2022-05-23] MEDS: LIDOCAINE PATCH REMOVAL MC SCH (21:55)
[2022-05-24] MEDS: FAMOTIDINE 20 MG TABLET PO SCH ×2 (11:12→21:25)
[2022-05-24] MEDS: PRENATAL VITAMINS W/ FOLIC ACID TABLET (FP) PO SCH (11:12)
[2022-05-24] MEDS: LISINOPRIL 5 MG TABLET PO SCH (11:12)
[2022-05-24] MEDS: APIXABAN 5 MG TABLET PO SCH ×2 (11:13→21:24)
[2022-05-24] MEDS: FOLIC ACID 1 MG TABLET (FP) PO SCH (11:13)
[2022-05-24] MEDS: CARVEDILOL 6.25 MG TABLET (FP) PO SCH ×2 (11:13→21:27)
[2022-05-24] MEDS: BUDESONIDE/FORMETEROL FUMARATE 80/4.5 mcg INHALER IH SCH ×2 (11:14→21:26)
[2022-05-24] MEDS: ALBUTEROL SO4 HFA INHALER IH PRN (11:14)
[2022-05-24] MEDS: LORATADINE 10 MG TABLET PO SCH (11:15)
[2022-05-24] MEDS: METHOCARBAMOL 500 MG TABLET PO PRN ×2 (11:17→21:24)
[2022-05-24] MEDS: ACETAMINOPHEN 325 MG TABLET (FP) PO PRN ×2 (11:18→21:25)
[2022-05-24] MEDS: hydrOXYzine PAMOATE 25 MG CAPSULE (FP) PO PRN ×2 (11:18→21:24)
[2022-05-24] MEDS: LIDOCAINE 5% TOPICAL PATCH TP SCH (11:21)
[2022-05-24] MEDS: TIMOLOL 0.5% OPHTHALMIC SOL 5 ML BOTTLE OU SCH ×2 (11:23→18:05)
[2022-05-24] MEDS: NICOTINE 10 MG CARTRIDGE (INHALER) IH PRN (15:20)
[2022-05-24] MEDS: OLANZapine 10 MG TABLET PO SCH (21:24)
[2022-05-24] MEDS: TAMSULOSIN HCL 0.4 MG CAP PO SCH (21:24)
[2022-05-24] MEDS: MELATONIN 5 MG TABLETS PO SCH (21:24)
[2022-05-24] MEDS: THIAMINE HCL 100 MG TABLET (FP) PO SCH (21:24)
[2022-05-24] MEDS: LATANOPROST 0.005% OPHTH SOLN 2.5ML BOTTLE OU SCH (21:26)
[2022-05-24] MEDS: LIDOCAINE PATCH REMOVAL MC SCH (21:26)
[2022-05-24] MEDS: traZODone HCL 100 MG TABLET (FP) PO SCH (21:27)
[2022-05-25] MEDS: FAMOTIDINE 20 MG TABLET PO SCH ×2 (11:04→21:47)
[2022-05-25] MEDS: LORATADINE 10 MG TABLET PO SCH (11:04)
[2022-05-25] MEDS: FOLIC ACID 1 MG TABLET (FP) PO SCH (11:05)
[2022-05-25] MEDS: PRENATAL VITAMINS W/ FOLIC ACID TABLET (FP) PO SCH (11:05)
[2022-05-25] MEDS: APIXABAN 5 MG TABLET PO SCH ×2 (11:05→21:47)
[2022-05-25] MEDS: CARVEDILOL 6.25 MG TABLET (FP) PO SCH ×2 (11:05→21:47)
[2022-05-25] MEDS: hydrOXYzine PAMOATE 25 MG CAPSULE (FP) PO PRN ×2 (11:07→21:49)
[2022-05-25] MEDS: ACETAMINOPHEN 325 MG TABLET (FP) PO PRN ×2 (11:08→21:49)
[2022-05-25] MEDS: BUDESONIDE/FORMETEROL FUMARATE 80/4.5 mcg INHALER IH SCH ×2 (11:13→21:50)
[2022-05-25] MEDS: TIMOLOL 0.5% OPHTHALMIC SOL 5 ML BOTTLE OU SCH ×2 (11:13→17:15)
[2022-05-25] MEDS: LISINOPRIL 5 MG TABLET PO SCH (11:13)
[2022-05-25] MEDS: LIDOCAINE 5% TOPICAL PATCH TP SCH (11:13)
[2022-05-25] MEDS: NICOTINE 10 MG CARTRIDGE (INHALER) IH PRN (16:39)
[2022-05-25] MEDS: MAGNESIUM HYDROX 2400MG/30ML ORAL SUSPENSION 30 ML CUP PO PRN (16:39)
[2022-05-25] MEDS: MELATONIN 5 MG TABLETS PO SCH (21:47)
[2022-05-25] MEDS: METHOCARBAMOL 500 MG TABLET PO PRN (21:47)
[2022-05-25] MEDS: OLANZapine 10 MG TABLET PO SCH (21:47)
[2022-05-25] MEDS: traZODone HCL 100 MG TABLET (FP) PO SCH (21:47)
[2022-05-25] MEDS: THIAMINE HCL 100 MG TABLET (FP) PO SCH (21:47)
[2022-05-25] MEDS: TAMSULOSIN HCL 0.4 MG CAP PO SCH (21:47)
[2022-05-25] MEDS: LIDOCAINE PATCH REMOVAL MC SCH (21:49)
[2022-05-25] MEDS: LATANOPROST 0.005% OPHTH SOLN 2.5ML BOTTLE OU SCH ×2 (21:50→22:29)
[2022-05-26] MEDS: LISINOPRIL 5 MG TABLET PO SCH (10:25)
[2022-05-26] MEDS: FOLIC ACID 1 MG TABLET (FP) PO SCH (10:25)
[2022-05-26] MEDS: LORATADINE 10 MG TABLET PO SCH (10:26)
[2022-05-26] MEDS: APIXABAN 5 MG TABLET PO SCH ×2 (10:26→21:30)
[2022-05-26] MEDS: FAMOTIDINE 20 MG TABLET PO SCH ×2 (10:26→21:30)
[2022-05-26] MEDS: hydrOXYzine PAMOATE 25 MG CAPSULE (FP) PO PRN ×2 (10:27→21:30)
[2022-05-26] MEDS: LIDOCAINE 5% TOPICAL PATCH TP SCH (10:28)
[2022-05-26] MEDS: CARVEDILOL 6.25 MG TABLET (FP) PO SCH ×2 (10:29→21:30)
[2022-05-26] MEDS: BUDESONIDE/FORMETEROL FUMARATE 80/4.5 mcg INHALER IH SCH ×2 (10:29→21:33)
[2022-05-26] MEDS: PRENATAL VITAMINS W/ FOLIC ACID TABLET (FP) PO SCH (10:29)
[2022-05-26] MEDS: TIMOLOL 0.5% OPHTHALMIC SOL 5 ML BOTTLE OU SCH ×2 (10:29→17:25)
[2022-05-26] MEDS: OLANZapine 10 MG TABLET PO SCH (21:30)
[2022-05-26] MEDS: TAMSULOSIN HCL 0.4 MG CAP PO SCH (21:30)
[2022-05-26] MEDS: THIAMINE HCL 100 MG TABLET (FP) PO SCH (21:30)
[2022-05-26] MEDS: traZODone HCL 100 MG TABLET (FP) PO SCH (21:30)
[2022-05-26] MEDS: MELATONIN 5 MG TABLETS PO SCH (21:30)
[2022-05-26] MEDS: ACETAMINOPHEN 325 MG TABLET (FP) PO PRN (21:32)
[2022-05-26] MEDS: METHOCARBAMOL 500 MG TABLET PO PRN (21:32)
[2022-05-26] MEDS: LATANOPROST 0.005% OPHTH SOLN 2.5ML BOTTLE OU SCH (21:33)
[2022-05-26] MEDS: LIDOCAINE PATCH REMOVAL MC SCH (21:33)
[2022-05-27] MEDS: APIXABAN 5 MG TABLET PO SCH ×2 (10:34→21:46)
[2022-05-27] MEDS: LISINOPRIL 5 MG TABLET PO SCH (10:34)
[2022-05-27] MEDS: FAMOTIDINE 20 MG TABLET PO SCH ×2 (10:35→21:46)
[2022-05-27] MEDS: PRENATAL VITAMINS W/ FOLIC ACID TABLET (FP) PO SCH (10:35)
[2022-05-27] MEDS: LIDOCAINE 5% TOPICAL PATCH TP SCH (10:35)
[2022-05-27] MEDS: hydrOXYzine PAMOATE 25 MG CAPSULE (FP) PO PRN ×2 (10:35→21:44)
[2022-05-27] MEDS: LORATADINE 10 MG TABLET PO SCH (10:35)
[2022-05-27] MEDS: FOLIC ACID 1 MG TABLET (FP) PO SCH (10:35)
[2022-05-27] MEDS: CARVEDILOL 6.25 MG TABLET (FP) PO SCH ×2 (10:35→21:46)
[2022-05-27] MEDS: SODIUM CHLORIDE NASAL SPRAY 44 ML BOTTLE NS PRN (10:57)
[2022-05-27] MEDS: TIMOLOL 0.5% OPHTHALMIC SOL 5 ML BOTTLE OU SCH ×2 (10:57→17:45)
[2022-05-27] MEDS: BUDESONIDE/FORMETEROL FUMARATE 80/4.5 mcg INHALER IH SCH ×2 (10:57→21:44)
[2022-05-27] MEDS: MELATONIN 5 MG TABLETS PO SCH (21:42)
[2022-05-27] MEDS: ACETAMINOPHEN 325 MG TABLET (FP) PO PRN (21:44)
[2022-05-27] MEDS: METHOCARBAMOL 500 MG TABLET PO PRN (21:44)
[2022-05-27] MEDS: THIAMINE HCL 100 MG TABLET (FP) PO SCH (21:46)
[2022-05-27] MEDS: traZODone HCL 100 MG TABLET (FP) PO SCH (21:46)
[2022-05-27] MEDS: TAMSULOSIN HCL 0.4 MG CAP PO SCH (21:46)
[2022-05-27] MEDS: OLANZapine 10 MG TABLET PO SCH (21:46)
[2022-05-27] MEDS: LATANOPROST 0.005% OPHTH SOLN 2.5ML BOTTLE OU SCH (21:48)
[2022-05-27] MEDS: LIDOCAINE PATCH REMOVAL MC SCH (22:12)
[2022-05-28] MEDS: APIXABAN 5 MG TABLET PO SCH ×2 (10:33→21:28)
[2022-05-28] MEDS: CARVEDILOL 6.25 MG TABLET (FP) PO SCH ×2 (10:33→21:30)
[2022-05-28] MEDS: FAMOTIDINE 20 MG TABLET PO SCH ×2 (10:33→21:28)
[2022-05-28] MEDS: LISINOPRIL 5 MG TABLET PO SCH (10:33)
[2022-05-28] MEDS: BUDESONIDE/FORMETEROL FUMARATE 80/4.5 mcg INHALER IH SCH ×2 (10:33→21:30)
[2022-05-28] MEDS: LORATADINE 10 MG TABLET PO SCH (10:33)
[2022-05-28] MEDS: hydrOXYzine PAMOATE 25 MG CAPSULE (FP) PO PRN ×2 (10:34→21:29)
[2022-05-28] MEDS: TIMOLOL 0.5% OPHTHALMIC SOL 5 ML BOTTLE OU SCH ×2 (10:34→17:01)
[2022-05-28] MEDS: METHOCARBAMOL 500 MG TABLET PO PRN ×2 (10:34→21:28)
[2022-05-28] MEDS: LIDOCAINE 5% TOPICAL PATCH TP SCH (10:34)
[2022-05-28] MEDS: PRENATAL VITAMINS W/ FOLIC ACID TABLET (FP) PO SCH (10:34)
[2022-05-28] MEDS: FOLIC ACID 1 MG TABLET (FP) PO SCH (10:34)
[2022-05-28] MEDS: ALBUTEROL SO4 HFA INHALER IH PRN (10:41)
[2022-05-28] MEDS: MAGNESIUM HYDROX 2400MG/30ML ORAL SUSPENSION 30 ML CUP PO PRN (14:50)
[2022-05-28] MEDS: NICOTINE 10 MG CARTRIDGE (INHALER) IH PRN (16:11)
[2022-05-28] MEDS: TAMSULOSIN HCL 0.4 MG CAP PO SCH (21:28)
[2022-05-28] MEDS: ACETAMINOPHEN 325 MG TABLET (FP) PO PRN (21:28)
[2022-05-28] MEDS: traZODone HCL 100 MG TABLET (FP) PO SCH (21:29)
[2022-05-28] MEDS: OLANZapine 10 MG TABLET PO SCH (21:29)
[2022-05-28] MEDS: LIDOCAINE PATCH REMOVAL MC SCH (21:31)
[2022-05-28] MEDS: MELATONIN 5 MG TABLETS PO SCH (21:31)
[2022-05-28] MEDS: LATANOPROST 0.005% OPHTH SOLN 2.5ML BOTTLE OU SCH (22:01)
[2022-05-28] MEDS: THIAMINE HCL 100 MG TABLET (FP) PO SCH (22:01)
[2022-05-29] MEDS: hydrOXYzine PAMOATE 25 MG CAPSULE (FP) PO PRN ×2 (10:20→21:41)
[2022-05-29] MEDS: LORATADINE 10 MG TABLET PO SCH (10:20)
[2022-05-29] MEDS: FOLIC ACID 1 MG TABLET (FP) PO SCH (10:20)
[2022-05-29] MEDS: APIXABAN 5 MG TABLET PO SCH ×2 (10:20→21:40)
[2022-05-29] MEDS: LISINOPRIL 5 MG TABLET PO SCH (10:21)
[2022-05-29] MEDS: LIDOCAINE 5% TOPICAL PATCH TP SCH (10:21)
[2022-05-29] MEDS: PRENATAL VITAMINS W/ FOLIC ACID TABLET (FP) PO SCH (10:21)
[2022-05-29] MEDS: FAMOTIDINE 20 MG TABLET PO SCH ×2 (10:21→21:42)
[2022-05-29] MEDS: BUDESONIDE/FORMETEROL FUMARATE 80/4.5 mcg INHALER IH SCH ×2 (10:23→21:43)
[2022-05-29] MEDS: ACETAMINOPHEN 325 MG TABLET (FP) PO PRN (10:23)
[2022-05-29] MEDS: TIMOLOL 0.5% OPHTHALMIC SOL 5 ML BOTTLE OU SCH ×2 (10:23→18:18)
[2022-05-29] MEDS: CARVEDILOL 6.25 MG TABLET (FP) PO SCH ×2 (10:25→21:41)
[2022-05-29] MEDS: METHOCARBAMOL 500 MG TABLET PO PRN (21:41)
[2022-05-29] MEDS: TAMSULOSIN HCL 0.4 MG CAP PO SCH (21:41)
[2022-05-29] MEDS: OLANZapine 10 MG TABLET PO SCH (21:41)
[2022-05-29] MEDS: traZODone HCL 100 MG TABLET (FP) PO SCH (21:41)
[2022-05-29] MEDS: MELATONIN 5 MG TABLETS PO SCH (21:42)
[2022-05-29] MEDS: LIDOCAINE PATCH REMOVAL MC SCH (21:42)
[2022-05-29] MEDS: THIAMINE HCL 100 MG TABLET (FP) PO SCH (21:42)
[2022-05-29] MEDS: LATANOPROST 0.005% OPHTH SOLN 2.5ML BOTTLE OU SCH (21:43)
[2022-05-30] MEDS: BUDESONIDE/FORMETEROL FUMARATE 80/4.5 mcg INHALER IH SCH ×2 (10:30→21:40)
[2022-05-30] MEDS: LISINOPRIL 5 MG TABLET PO SCH (10:30)
[2022-05-30] MEDS: PRENATAL VITAMINS W/ FOLIC ACID TABLET (FP) PO SCH (10:30)
[2022-05-30] MEDS: CARVEDILOL 6.25 MG TABLET (FP) PO SCH ×2 (10:31→21:38)
[2022-05-30] MEDS: LIDOCAINE 5% TOPICAL PATCH TP SCH (10:31)
[2022-05-30] MEDS: FOLIC ACID 1 MG TABLET (FP) PO SCH (10:31)
[2022-05-30] MEDS: LORATADINE 10 MG TABLET PO SCH (10:31)
[2022-05-30] MEDS: FAMOTIDINE 20 MG TABLET PO SCH ×2 (10:31→21:37)
[2022-05-30] MEDS: hydrOXYzine PAMOATE 25 MG CAPSULE (FP) PO PRN ×2 (10:31→21:37)
[2022-05-30] MEDS: APIXABAN 5 MG TABLET PO SCH ×2 (10:31→21:37)
[2022-05-30] MEDS: TIMOLOL 0.5% OPHTHALMIC SOL 5 ML BOTTLE OU SCH ×2 (10:31→17:15)
[2022-05-30] MEDS: METHOCARBAMOL 500 MG TABLET PO PRN ×2 (10:33→21:37)
[2022-05-30] MEDS: ACETAMINOPHEN 325 MG TABLET (FP) PO PRN ×2 (10:33→21:39)
[2022-05-30] MEDS: traZODone HCL 100 MG TABLET (FP) PO SCH (21:36)
[2022-05-30] MEDS: TAMSULOSIN HCL 0.4 MG CAP PO SCH (21:37)
[2022-05-30] MEDS: LIDOCAINE PATCH REMOVAL MC SCH (21:40)
[2022-05-30] MEDS: MELATONIN 5 MG TABLETS PO SCH (21:40)
[2022-05-30] MEDS: THIAMINE HCL 100 MG TABLET (FP) PO SCH (21:40)
[2022-05-30] MEDS: LATANOPROST 0.005% OPHTH SOLN 2.5ML BOTTLE OU SCH (21:40)
[2022-05-30] MEDS: OLANZapine 10 MG TABLET PO SCH (23:12)
[2022-05-31] MEDS: FAMOTIDINE 20 MG TABLET PO SCH ×2 (10:44→21:28)
[2022-05-31] MEDS: APIXABAN 5 MG TABLET PO SCH ×2 (10:44→21:29)
[2022-05-31] MEDS: ACETAMINOPHEN 325 MG TABLET (FP) PO PRN ×2 (10:45→21:29)
[2022-05-31] MEDS: LORATADINE 10 MG TABLET PO SCH (10:45)
[2022-05-31] MEDS: hydrOXYzine PAMOATE 25 MG CAPSULE (FP) PO PRN (10:45)
[2022-05-31] MEDS: FOLIC ACID 1 MG TABLET (FP) PO SCH (10:46)
[2022-05-31] MEDS: LIDOCAINE 5% TOPICAL PATCH TP SCH (10:51)
[2022-05-31] MEDS: CARVEDILOL 6.25 MG TABLET (FP) PO SCH ×2 (10:51→21:28)
[2022-05-31] MEDS: PRENATAL VITAMINS W/ FOLIC ACID TABLET (FP) PO SCH (10:53)
[2022-05-31] MEDS: LISINOPRIL 5 MG TABLET PO SCH (10:53)
[2022-05-31] MEDS: BUDESONIDE/FORMETEROL FUMARATE 80/4.5 mcg INHALER IH SCH ×2 (10:53→21:31)
[2022-05-31] MEDS: TIMOLOL 0.5% OPHTHALMIC SOL 5 ML BOTTLE OU SCH ×2 (10:53→17:50)
[2022-05-31] MEDS: NICOTINE 10 MG CARTRIDGE (INHALER) IH PRN (20:00)
[2022-05-31] MEDS: MELATONIN 5 MG TABLETS PO SCH (21:28)
[2022-05-31] MEDS: THIAMINE HCL 100 MG TABLET (FP) PO SCH (21:28)
[2022-05-31] MEDS: METHOCARBAMOL 500 MG TABLET PO PRN (21:29)
[2022-05-31] MEDS: OLANZapine 10 MG TABLET PO SCH (21:29)
[2022-05-31] MEDS: traZODone HCL 100 MG TABLET (FP) PO SCH (21:29)
[2022-05-31] MEDS: TAMSULOSIN HCL 0.4 MG CAP PO SCH (21:29)
[2022-05-31] MEDS: LATANOPROST 0.005% OPHTH SOLN 2.5ML BOTTLE OU SCH (21:31)
[2022-05-31] MEDS: LIDOCAINE PATCH REMOVAL MC SCH (21:31)
[2022-06-01 06:48] VITALS: TEMP 98.1
[2022-06-01] MEDS: APIXABAN 5 MG TABLET PO SCH (10:01)
[2022-06-01] MEDS: FOLIC ACID 1 MG TABLET (FP) PO SCH (10:01)
[2022-06-01] MEDS: METHOCARBAMOL 500 MG TABLET PO PRN (10:01)
[2022-06-01] MEDS: LORATADINE 10 MG TABLET PO SCH (10:01)
[2022-06-01] MEDS: FAMOTIDINE 20 MG TABLET PO SCH (10:01)
[2022-06-01] MEDS: LISINOPRIL 5 MG TABLET PO SCH (10:01)
[2022-06-01 10:02] VITALS: BP 116/74; PULSE 76
[2022-06-01] MEDS: LIDOCAINE 5% TOPICAL PATCH TP SCH (10:02)
[2022-06-01] MEDS: CARVEDILOL 6.25 MG TABLET (FP) PO SCH (10:02)
[2022-06-01] MEDS: BUDESONIDE/FORMETEROL FUMARATE 80/4.5 mcg INHALER IH SCH (10:02)
[2022-06-01] MEDS: PRENATAL VITAMINS W/ FOLIC ACID TABLET (FP) PO SCH (10:02)
[2022-06-01] MEDS: TIMOLOL 0.5% OPHTHALMIC SOL 5 ML BOTTLE OU SCH (10:03)
[2022-06-01] MEDS: hydrOXYzine PAMOATE 25 MG CAPSULE (FP) PO PRN (10:04)
[2022-06-01] MEDS: NICOTINE 10 MG CARTRIDGE (INHALER) IH PRN (10:27)
== END 2022-06-01 11:00 | disposition home or self-care (01) | DRG 772 ==
LOC: YASAS 14:03 → Y3W 14:05
PROVIDERS: ADMIT Allergy & Immunology; ATTEND Psychiatry & Neurology Pain Medicine
PROC: HZ42ZZZ Group Counseling for Substance Abuse Treatment, Cognitive-Behavioral (ICD-10-PCS; principal; 2022-05-05)
DX: F10.20 Alcohol dependence, uncomplicated (principal); F14.20 Cocaine dependence, uncomplicated; F12.20 Cannabis dependence, uncomplicated; F17.210 Nicotine dependence, cigarettes, uncomplicated; F20.0 Paranoid schizophrenia; I10 Essential (primary) hypertension; J44.9 Chronic obstructive pulmonary disease, unspecified; H40.2231 Chronic angle-closure glaucoma, bilateral, mild stage; K21.9 Gastro-esophageal reflux disease without esophagitis; M54.50 Low back pain, unspecified; G89.29 Other chronic pain; H54.61 Unqualified visual loss, right eye, normal vision left eye; N40.0 Benign prostatic hyperplasia without lower urinary tract symptoms; Z99.89 Dependence on other enabling machines and devices; Z88.0 Allergy status to penicillin; Z88.8 Allergy status to other drugs, medicaments and biological substances; Z91.013 Allergy to seafood

== ENCOUNTER 2022-06-22 12:52 | Inpatient (IN) | payer OTHER ==
[2022-06-22 14:39] VITALS: BMI 28.0
[2022-06-22] MEDS ORDERED: DICYCLOMINE HCL 10 MG CAPSULE PO PRN (17:02)
[2022-06-22] MEDS ORDERED: guaiFENesin 200 MG/10 ML 10 ML UNIT-DOSE CUPS PO PRN (17:02)
[2022-06-22] MEDS ORDERED: P-EPHED 60MG/TRIPROLIDI 2.5MG TABLET PO PRN (17:02)
[2022-06-22] MEDS ORDERED: ONDANSETRON *ODT* 4 MG TABLET SL PRN (17:02)
[2022-06-22] MEDS ORDERED: BENZOCAINE/MENTHOL (CHLORASEPTIC ) LOZENGE MM PRN (17:02)
[2022-06-22] MEDS ORDERED: LOPERAMIDE HCL 2 MG CAPSULE PO PRN (17:02)
[2022-06-22] MEDS ORDERED: NICOTINE 7 MG/24 HOURS TOPICAL PATCH TD PRN (17:02)
[2022-06-22] MEDS ORDERED: NICOTINE POLACRILEX 2 MG GUM BUC PRN (17:02)
[2022-06-22] MEDS ORDERED: MAGNESIUM HYDROX 2400MG/30ML ORAL SUSPENSION 30 ML CUP PO PRN (17:02)
[2022-06-22] MEDS ORDERED: MAG HYDROX/AL HYDROX/SIMETH 30 ML UNIT-DOSE CUP PO PRN (17:02)
[2022-06-22] MEDS ORDERED: MAGNESIUM CITRATE 300 ML BOTTLE PO PRN (17:02)
[2022-06-22] MEDS ORDERED: MELATONIN 5 MG TABLETS PO PRN (17:02)
[2022-06-22] MEDS ORDERED: diazePAM 5 MG TABLET PO PRN (17:05)
[2022-06-22] MEDS ORDERED: COLLOIDAL OATMEAL 1 BAR EACH TP PRN (17:38)
[2022-06-22] MEDS: diazePAM 5 MG TABLET PO SCH ×2 (19:42→23:14)
[2022-06-22] MEDS: FAMOTIDINE 20 MG TABLET PO SCH (23:14)
[2022-06-22] MEDS: CARVEDILOL 6.25 MG TABLET (FP) PO SCH (23:14)
[2022-06-22] MEDS: THIAMINE HCL 100 MG TABLET (FP) PO SCH (23:14)
[2022-06-22] MEDS: APIXABAN 5 MG TABLET PO SCH (23:14)
[2022-06-22] MEDS: TAMSULOSIN HCL 0.4 MG CAP PO SCH (23:14)
[2022-06-22] MEDS: BUDESONIDE/FORMETEROL FUMARATE 80/4.5 mcg INHALER IH SCH (23:26)
[2022-06-22] MEDS: TIMOLOL 0.5% OPHTHALMIC SOL 5 ML BOTTLE OU SCH (23:26)
[2022-06-22] MEDS: LATANOPROST 0.005% OPHTH SOLN 2.5ML BOTTLE OU SCH (23:26)
[2022-06-23] MEDS: TIMOLOL 0.5% OPHTHALMIC SOL 5 ML BOTTLE OU SCH ×2 (07:07→17:36)
[2022-06-23] MEDS: diazePAM 5 MG TABLET PO SCH ×4 (07:07→22:59)
[2022-06-23] MEDS: PRENATAL VITAMINS W/ FOLIC ACID TABLET (FP) PO SCH (10:36)
[2022-06-23] MEDS: FOLIC ACID 1 MG TABLET (FP) PO SCH (10:36)
[2022-06-23] MEDS: APIXABAN 5 MG TABLET PO SCH ×2 (10:36→22:58)
[2022-06-23] MEDS: FAMOTIDINE 20 MG TABLET PO SCH ×2 (10:37→22:58)
[2022-06-23] MEDS: CARVEDILOL 6.25 MG TABLET (FP) PO SCH ×2 (10:37→22:59)
[2022-06-23] MEDS: BUDESONIDE/FORMETEROL FUMARATE 80/4.5 mcg INHALER IH SCH ×2 (10:39→22:59)
[2022-06-23] MEDS: hydrOXYzine PAMOATE 25 MG CAPSULE (FP) PO PRN ×2 (10:39→18:01)
[2022-06-23] MEDS: METHOCARBAMOL 500 MG TABLET PO PRN ×2 (10:39→18:01)
[2022-06-23] MEDS: ALBUTEROL SO4 HFA INHALER IH PRN ×2 (10:46→18:02)
[2022-06-23] MEDS: LIDOCAINE 5% TOPICAL PATCH TP SCH (12:12)
[2022-06-23] MEDS: traZODone HCL 100 MG TABLET (FP) PO SCH (22:58)
[2022-06-23] MEDS: OLANZapine 10 MG TABLET PO SCH (22:58)
[2022-06-23] MEDS: TAMSULOSIN HCL 0.4 MG CAP PO SCH (22:58)
[2022-06-23] MEDS: THIAMINE HCL 100 MG TABLET (FP) PO SCH (22:58)
[2022-06-23] MEDS: LATANOPROST 0.005% OPHTH SOLN 2.5ML BOTTLE OU SCH (23:10)
[2022-06-23] MEDS: LIDOCAINE PATCH REMOVAL MC SCH (23:11)
[2022-06-24] MEDS: diazePAM 5 MG TABLET PO SCH ×3 (06:10→22:52)
[2022-06-24] MEDS: TIMOLOL 0.5% OPHTHALMIC SOL 5 ML BOTTLE OU SCH ×2 (08:23→18:57)
[2022-06-24 09:36] LABS: HEMATOCRIT 34.2 % (35.4-49); HEMOGLOBIN 11.5 GM/dL (11.7-16.9); MCH 28.6 pg (25.7-33.7); MCHC 33.6 g/dl (32.0-35.9); MEAN CELL VOLUME 85.2 fl (80-96); MEAN PLT VOLUME 7.8 fl (7.5-11.1); PLATELET COUNT 247 10^3/uL (134-434); RBC 4.01 M/mm3 (4.00-5.60); RDW 16.6 % (11.9-15.9); WHITE BLOOD COUNT 4.3 K/mm3 (4.0-10.0)
[2022-06-24 09:55] LABS: ALBUMIN 3.4 g/dl (3.4-5.0); BLOOD UREA NITROGEN 10.4 mg/dL (7-18); CALCIUM 8.7 mg/dL (8.5-10.1)
[2022-06-24 09:59] LABS: CREATININE 0.9 mg/dL (0.55-1.3)
[2022-06-24 10:00] LABS: BILIRUBIN,TOTAL 0.6 mg/dL (0.2-1); TOT PROT 6.7 g/dl (6.4-8.2)
[2022-06-24] MEDS: CARVEDILOL 6.25 MG TABLET (FP) PO SCH ×2 (10:48→22:51)
[2022-06-24] MEDS: FAMOTIDINE 20 MG TABLET PO SCH ×2 (10:48→22:51)
[2022-06-24] MEDS: hydrOXYzine PAMOATE 25 MG CAPSULE (FP) PO PRN ×2 (10:48→22:54)
[2022-06-24] MEDS: APIXABAN 5 MG TABLET PO SCH ×2 (10:48→22:51)
[2022-06-24] MEDS: METHOCARBAMOL 500 MG TABLET PO PRN ×2 (10:48→18:49)
[2022-06-24] MEDS: PRENATAL VITAMINS W/ FOLIC ACID TABLET (FP) PO SCH (10:48)
[2022-06-24] MEDS: FOLIC ACID 1 MG TABLET (FP) PO SCH (10:48)
[2022-06-24] MEDS: LIDOCAINE 5% TOPICAL PATCH TP SCH (10:48)
[2022-06-24] MEDS: BUDESONIDE/FORMETEROL FUMARATE 80/4.5 mcg INHALER IH SCH ×2 (10:49→22:52)
[2022-06-24] MEDS: ALBUTEROL SO4 HFA INHALER IH PRN ×2 (10:49→22:50)
[2022-06-24] MEDS: ACETAMINOPHEN 325 MG TABLET (FP) PO PRN ×3 (13:58→22:55)
[2022-06-24] MEDS: traZODone HCL 100 MG TABLET (FP) PO SCH (22:51)
[2022-06-24] MEDS: OLANZapine 10 MG TABLET PO SCH (22:51)
[2022-06-24] MEDS: TAMSULOSIN HCL 0.4 MG CAP PO SCH (22:51)
[2022-06-24] MEDS: THIAMINE HCL 100 MG TABLET (FP) PO SCH (22:53)
[2022-06-24] MEDS: LATANOPROST 0.005% OPHTH SOLN 2.5ML BOTTLE OU SCH (22:57)
[2022-06-25] MEDS: LIDOCAINE PATCH REMOVAL MC SCH ×2 (00:24→22:59)
[2022-06-25] MEDS: diazePAM 5 MG TABLET PO SCH ×3 (06:03→17:53)
[2022-06-25] MEDS: TIMOLOL 0.5% OPHTHALMIC SOL 5 ML BOTTLE OU SCH ×2 (07:50→17:54)
[2022-06-25] MEDS ORDERED: LORATADINE 10 MG TABLET PO PRN (09:38)
[2022-06-25] MEDS: PRENATAL VITAMINS W/ FOLIC ACID TABLET (FP) PO SCH (10:50)
[2022-06-25] MEDS: APIXABAN 5 MG TABLET PO SCH ×2 (10:50→22:59)
[2022-06-25] MEDS: BUDESONIDE/FORMETEROL FUMARATE 80/4.5 mcg INHALER IH SCH ×2 (10:50→22:59)
[2022-06-25] MEDS: CARVEDILOL 6.25 MG TABLET (FP) PO SCH ×2 (10:50→22:58)
[2022-06-25] MEDS: FAMOTIDINE 20 MG TABLET PO SCH ×2 (10:50→22:58)
[2022-06-25] MEDS: FOLIC ACID 1 MG TABLET (FP) PO SCH (10:51)
[2022-06-25] MEDS: ALBUTEROL SO4 HFA INHALER IH PRN (10:51)
[2022-06-25] MEDS: hydrOXYzine PAMOATE 25 MG CAPSULE (FP) PO PRN (10:52)
[2022-06-25] MEDS: LIDOCAINE 5% TOPICAL PATCH TP SCH (10:52)
[2022-06-25] MEDS: THIAMINE HCL 100 MG TABLET (FP) PO SCH (22:58)
[2022-06-25] MEDS: TAMSULOSIN HCL 0.4 MG CAP PO SCH (22:58)
[2022-06-25] MEDS: OLANZapine 10 MG TABLET PO SCH (22:59)
[2022-06-25] MEDS: traZODone HCL 100 MG TABLET (FP) PO SCH (22:59)
[2022-06-25] MEDS: LATANOPROST 0.005% OPHTH SOLN 2.5ML BOTTLE OU SCH (23:00)
[2022-06-25] MEDS: METHOCARBAMOL 500 MG TABLET PO PRN (23:03)
[2022-06-26] MEDS: diazePAM 5 MG TABLET PO ONE ×2 (06:14→06:39)
[2022-06-26] MEDS: METHOCARBAMOL 500 MG TABLET PO PRN (06:38)
[2022-06-26] MEDS: ACETAMINOPHEN 325 MG TABLET (FP) PO PRN (06:40)
[2022-06-26] MEDS: TIMOLOL 0.5% OPHTHALMIC SOL 5 ML BOTTLE OU SCH (07:38)
[2022-06-26 08:06] VITALS: RESP 18
[2022-06-26] MEDS: PRENATAL VITAMINS W/ FOLIC ACID TABLET (FP) PO SCH (10:57)
[2022-06-26] MEDS: FAMOTIDINE 20 MG TABLET PO SCH (10:57)
[2022-06-26] MEDS: CARVEDILOL 6.25 MG TABLET (FP) PO SCH (10:57)
[2022-06-26] MEDS: APIXABAN 5 MG TABLET PO SCH (10:57)
[2022-06-26] MEDS: BUDESONIDE/FORMETEROL FUMARATE 80/4.5 mcg INHALER IH SCH (10:58)
[2022-06-26] MEDS: FOLIC ACID 1 MG TABLET (FP) PO SCH (10:58)
[2022-06-26] MEDS: LIDOCAINE 5% TOPICAL PATCH TP SCH (10:59)
[2022-06-26 13:15] VITALS: BP 122/72; PULSE 63; TEMP 97.4
== END 2022-06-26 13:15 | disposition home or self-care (01) | DRG 774 ==
LOC: YASAS 12:52 → Y6N 17:42
PROVIDERS: ADMIT Allergy & Immunology; ATTEND Surgery
PROC: HZ2ZZZZ Detoxification Services for Substance Abuse Treatment (ICD-10-PCS; principal; 2022-06-22)
DX: F10.230 Alcohol dependence with withdrawal, uncomplicated (principal); F10.220 Alcohol dependence with intoxication, uncomplicated; F14.20 Cocaine dependence, uncomplicated; F12.20 Cannabis dependence, uncomplicated; F17.213 Nicotine dependence, cigarettes, with withdrawal; F20.0 Paranoid schizophrenia; F19.282 Other psychoactive substance dependence with psychoactive substance-induced sleep disorder; F19.280 Other psychoactive substance dependence with psychoactive substance-induced anxiety disorder; I10 Essential (primary) hypertension; K21.9 Gastro-esophageal reflux disease without esophagitis; N40.0 Benign prostatic hyperplasia without lower urinary tract symptoms; H26.9 Unspecified cataract; H54.40 Blindness, one eye, unspecified eye; H40.2231 Chronic angle-closure glaucoma, bilateral, mild stage; D64.9 Anemia, unspecified; J44.9 Chronic obstructive pulmonary disease, unspecified; M19.90 Unspecified osteoarthritis, unspecified site; M54.59 Other low back pain; G89.29 Other chronic pain; Z86.69 Personal history of other diseases of the nervous system and sense organs; Z56.0 Unemployment, unspecified; Z59.00 Homelessness unspecified
CPT/HCPCS: 36415; 80053; 82962; 85027; 86780; C9803-CS; U0003; U0005

== ENCOUNTER 2022-08-21 17:48 | Emergency (ER) | payer OTHER ==
[2022-08-21 18:02] VITALS: BP 109/90; PULSE 90; RESP 20; BMI 28.8
[2022-08-21 18:41] VITALS: TEMP 97.5
== END 2022-08-21 22:42 | disposition home or self-care (01) ==
LOC: JER 17:48
DX: F10.120 Alcohol abuse with intoxication, uncomplicated (principal)
CPT/HCPCS: 82962; 99283-25

== ENCOUNTER 2022-08-22 00:32 | Inpatient (IN) | payer OTHER ==
[2022-08-22 01:05] VITALS: BMI 28.0
[2022-08-22] MEDS ORDERED: MAGNESIUM HYDROX 2400MG/30ML ORAL SUSPENSION 30 ML CUP PO PRN (01:20)
[2022-08-22] MEDS ORDERED: ONDANSETRON *ODT* 4 MG TABLET SL PRN (01:20)
[2022-08-22] MEDS ORDERED: ACETAMINOPHEN 325 MG TABLET (FP) PO PRN (01:20)
[2022-08-22] MEDS ORDERED: NICOTINE POLACRILEX 2 MG GUM BUC PRN (01:20)
[2022-08-22] MEDS ORDERED: MAG HYDROX/AL HYDROX/SIMETH 30 ML UNIT-DOSE CUP PO PRN (01:20)
[2022-08-22] MEDS ORDERED: DICYCLOMINE HCL 10 MG CAPSULE PO PRN (01:20)
[2022-08-22] MEDS ORDERED: MAGNESIUM CITRATE 300 ML BOTTLE PO PRN (01:20)
[2022-08-22] MEDS ORDERED: BENZOCAINE/MENTHOL (CHLORASEPTIC ) LOZENGE MM PRN (01:20)
[2022-08-22] MEDS ORDERED: LOPERAMIDE HCL 2 MG CAPSULE PO PRN (01:20)
[2022-08-22] MEDS ORDERED: NALOXONE HCL (KLOXXADO) 8 MG SPRAY NS PRN (01:20)
[2022-08-22] MEDS ORDERED: chlordiazePOXIDE HCL 25 MG CAPSULE PO PRN (01:20)
[2022-08-22] MEDS: chlordiazePOXIDE HCL 25 MG CAPSULE PO SCH ×4 (05:59→22:45)
[2022-08-22] MEDS ORDERED: ALBUTEROL SO4 HFA INHALER IH PRN (09:35)
[2022-08-22] MEDS: PRENATAL VITAMINS W/ FOLIC ACID TABLET (FP) PO SCH (10:46)
[2022-08-22] MEDS: NICOTINE 21 MG/24 HOURS TOPICAL PATCH TD SCH (10:46)
[2022-08-22] MEDS: CARVEDILOL 6.25 MG TABLET (FP) PO SCH ×2 (10:52→22:45)
[2022-08-22] MEDS: APIXABAN 5 MG TABLET PO SCH ×2 (10:52→22:34)
[2022-08-22] MEDS: FAMOTIDINE 20 MG TABLET PO SCH ×2 (10:52→22:33)
[2022-08-22] MEDS: TIMOLOL 0.5% OPHTHALMIC SOL 5 ML BOTTLE OU SCH ×2 (10:53→22:35)
[2022-08-22] MEDS: BUDESONIDE/FORMETEROL FUMARATE 80/4.5 mcg INHALER IH SCH ×2 (12:03→22:35)
[2022-08-22] MEDS: TAMSULOSIN HCL 0.4 MG CAP PO SCH (22:33)
[2022-08-22] MEDS: THIAMINE HCL 100 MG TABLET (FP) PO SCH (22:33)
[2022-08-22] MEDS: LATANOPROST 0.005% OPHTH SOLN 2.5ML BOTTLE OU SCH (22:36)
[2022-08-22] MEDS: MELATONIN 5 MG TABLETS PO SCH (22:46)
[2022-08-22] MEDS: ALBUTEROL SO4 HFA INHALER IH PRN (22:46)
[2022-08-22] MEDS: METHOCARBAMOL 500 MG TABLET PO PRN (22:48)
[2022-08-23] MEDS: chlordiazePOXIDE HCL 25 MG CAPSULE PO SCH ×4 (05:34→23:01)
[2022-08-23] MEDS: ACETAMINOPHEN 325 MG TABLET (FP) PO PRN ×2 (05:35→10:43)
[2022-08-23] MEDS: METHOCARBAMOL 500 MG TABLET PO PRN ×2 (05:37→10:44)
[2022-08-23] MEDS: BUDESONIDE/FORMETEROL FUMARATE 80/4.5 mcg INHALER IH SCH ×2 (10:20→23:02)
[2022-08-23] MEDS: APIXABAN 5 MG TABLET PO SCH ×2 (10:20→23:01)
[2022-08-23] MEDS: CARVEDILOL 6.25 MG TABLET (FP) PO SCH ×2 (10:20→23:01)
[2022-08-23] MEDS: PRENATAL VITAMINS W/ FOLIC ACID TABLET (FP) PO SCH (10:20)
[2022-08-23] MEDS: FAMOTIDINE 20 MG TABLET PO SCH ×2 (10:21→23:01)
[2022-08-23] MEDS: TIMOLOL 0.5% OPHTHALMIC SOL 5 ML BOTTLE OU SCH ×2 (10:21→23:01)
[2022-08-23] MEDS: NICOTINE 21 MG/24 HOURS TOPICAL PATCH TD SCH (10:24)
[2022-08-23 12:17] LABS: HEMATOCRIT 32.2 % (35.4-49); HEMOGLOBIN 10.7 GM/dL (11.7-16.9); MCH 29.6 pg (25.7-33.7); MCHC 33.4 g/dl (32.0-35.9); MEAN CELL VOLUME 88.7 fl (80-96); MEAN PLT VOLUME 8.8 fl (7.5-11.1); PLATELET COUNT 352 10^3/uL (134-434); RBC 3.63 M/mm3 (4.00-5.60); RDW 17.6 % (11.9-15.9)
[2022-08-23 12:50] LABS: BLOOD UREA NITROGEN 7.8 mg/dL (7-18)
[2022-08-23 12:51] LABS: CALCIUM 8.6 mg/dL (8.5-10.1); CREATININE 0.9 mg/dL (0.55-1.3)
[2022-08-23 12:53] LABS: BILIRUBIN,TOTAL 0.2 mg/dL (0.2-1); TOT PROT 6.2 g/dl (6.4-8.2)
[2022-08-23] MEDS ORDERED: COLLOIDAL OATMEAL 1 BAR EACH TP PRN (16:53)
[2022-08-23] MEDS: TAMSULOSIN HCL 0.4 MG CAP PO SCH (23:00)
[2022-08-23] MEDS: THIAMINE HCL 100 MG TABLET (FP) PO SCH (23:01)
[2022-08-23] MEDS: MELATONIN 5 MG TABLETS PO SCH (23:02)
[2022-08-23] MEDS: LATANOPROST 0.005% OPHTH SOLN 2.5ML BOTTLE OU SCH (23:02)
[2022-08-24] MEDS ORDERED: chlordiazePOXIDE HCL 10 MG CAPSULE PO PRN
[2022-08-24] MEDS: chlordiazePOXIDE HCL 10 MG CAPSULE PO SCH ×4 (05:49→22:29)
[2022-08-24] MEDS: NICOTINE 21 MG/24 HOURS TOPICAL PATCH TD SCH (10:36)
[2022-08-24] MEDS: FLUTICASONE PROP 0.05% 16 GM NASAL SPRAY NS SCH ×2 (10:38→22:29)
[2022-08-24] MEDS: BUDESONIDE/FORMETEROL FUMARATE 80/4.5 mcg INHALER IH SCH ×2 (10:38→22:29)
[2022-08-24] MEDS: FAMOTIDINE 20 MG TABLET PO SCH ×2 (10:39→22:27)
[2022-08-24] MEDS: CARVEDILOL 6.25 MG TABLET (FP) PO SCH ×2 (10:39→22:27)
[2022-08-24] MEDS: PRENATAL VITAMINS W/ FOLIC ACID TABLET (FP) PO SCH (10:39)
[2022-08-24] MEDS: APIXABAN 5 MG TABLET PO SCH ×2 (10:39→22:27)
[2022-08-24] MEDS: TIMOLOL 0.5% OPHTHALMIC SOL 5 ML BOTTLE OU SCH ×2 (10:40→22:28)
[2022-08-24] MEDS: METHOCARBAMOL 500 MG TABLET PO PRN (10:43)
[2022-08-24] MEDS: ACETAMINOPHEN 325 MG TABLET (FP) PO PRN (10:43)
[2022-08-24] MEDS: hydrOXYzine PAMOATE 25 MG CAPSULE (FP) PO PRN (17:59)
[2022-08-24] MEDS: TAMSULOSIN HCL 0.4 MG CAP PO SCH (22:27)
[2022-08-24] MEDS: LATANOPROST 0.005% OPHTH SOLN 2.5ML BOTTLE OU SCH (22:27)
[2022-08-24] MEDS: traZODone HCL 100 MG TABLET (FP) PO SCH (22:27)
[2022-08-24] MEDS: THIAMINE HCL 100 MG TABLET (FP) PO SCH (22:27)
[2022-08-24] MEDS: OLANZapine 10 MG TABLET PO SCH (22:27)
[2022-08-25] MEDS: chlordiazePOXIDE HCL 10 MG CAPSULE PO SCH ×2 (06:09→18:20)
[2022-08-25] MEDS: FLUTICASONE PROP 0.05% 16 GM NASAL SPRAY NS SCH ×2 (10:11→22:58)
[2022-08-25] MEDS: BUDESONIDE/FORMETEROL FUMARATE 80/4.5 mcg INHALER IH SCH ×2 (10:11→22:58)
[2022-08-25] MEDS: CARVEDILOL 6.25 MG TABLET (FP) PO SCH ×2 (10:12→22:57)
[2022-08-25] MEDS: FAMOTIDINE 20 MG TABLET PO SCH ×2 (10:13→22:57)
[2022-08-25] MEDS: NICOTINE 21 MG/24 HOURS TOPICAL PATCH TD SCH (10:13)
[2022-08-25] MEDS: PRENATAL VITAMINS W/ FOLIC ACID TABLET (FP) PO SCH (10:13)
[2022-08-25] MEDS: APIXABAN 5 MG TABLET PO SCH ×2 (10:13→22:57)
[2022-08-25] MEDS: TIMOLOL 0.5% OPHTHALMIC SOL 5 ML BOTTLE OU SCH ×2 (10:13→22:58)
[2022-08-25] MEDS: hydrOXYzine PAMOATE 25 MG CAPSULE (FP) PO PRN (10:13)
[2022-08-25] MEDS: ALBUTEROL SO4 HFA INHALER IH PRN (10:15)
[2022-08-25] MEDS: THIAMINE HCL 100 MG TABLET (FP) PO SCH (22:57)
[2022-08-25] MEDS: traZODone HCL 100 MG TABLET (FP) PO SCH (22:57)
[2022-08-25] MEDS: TAMSULOSIN HCL 0.4 MG CAP PO SCH (22:57)
[2022-08-25] MEDS: OLANZapine 10 MG TABLET PO SCH (22:57)
[2022-08-25] MEDS: LATANOPROST 0.005% OPHTH SOLN 2.5ML BOTTLE OU SCH (22:59)
[2022-08-26] MEDS ORDERED: chlordiazePOXIDE HCL 10 MG CAPSULE PO ONE (05:00)
[2022-08-26 06:18] VITALS: RESP 18
[2022-08-26 09:42] VITALS: BP 141/79; PULSE 65; TEMP 96.9
[2022-08-26] MEDS: CARVEDILOL 6.25 MG TABLET (FP) PO SCH (10:56)
[2022-08-26] MEDS: NICOTINE 21 MG/24 HOURS TOPICAL PATCH TD SCH (10:56)
[2022-08-26] MEDS: BUDESONIDE/FORMETEROL FUMARATE 80/4.5 mcg INHALER IH SCH (10:56)
[2022-08-26] MEDS: FAMOTIDINE 20 MG TABLET PO SCH (10:56)
[2022-08-26] MEDS: PRENATAL VITAMINS W/ FOLIC ACID TABLET (FP) PO SCH (10:56)
[2022-08-26] MEDS: APIXABAN 5 MG TABLET PO SCH (10:56)
[2022-08-26] MEDS: TIMOLOL 0.5% OPHTHALMIC SOL 5 ML BOTTLE OU SCH (10:56)
[2022-08-26] MEDS: ALBUTEROL SO4 HFA INHALER IH PRN (10:57)
[2022-08-26] MEDS: FLUTICASONE PROP 0.05% 16 GM NASAL SPRAY NS SCH (10:58)
[2022-08-26] MEDS ORDERED: FLUTICASONE PROP 0.05% 16 GM NASAL SPRAY NS SCH (22:00)
== END 2022-08-26 12:32 | disposition home or self-care (01) | DRG 774 ==
LOC: YASAS 00:32 → Y6N 01:03
PROVIDERS: ADMIT Allergy & Immunology; ATTEND Surgery
PROC: HZ2ZZZZ Detoxification Services for Substance Abuse Treatment (ICD-10-PCS; principal; 2022-08-22)
DX: F10.230 Alcohol dependence with withdrawal, uncomplicated (principal); F14.20 Cocaine dependence, uncomplicated; F12.20 Cannabis dependence, uncomplicated; F17.210 Nicotine dependence, cigarettes, uncomplicated; F20.0 Paranoid schizophrenia; F19.280 Other psychoactive substance dependence with psychoactive substance-induced anxiety disorder; F19.282 Other psychoactive substance dependence with psychoactive substance-induced sleep disorder; H54.62 Unqualified visual loss, left eye, normal vision right eye; J44.9 Chronic obstructive pulmonary disease, unspecified; K21.9 Gastro-esophageal reflux disease without esophagitis; M54.50 Low back pain, unspecified; G89.29 Other chronic pain; N40.0 Benign prostatic hyperplasia without lower urinary tract symptoms; Z86.718 Personal history of other venous thrombosis and embolism; Z79.01 Long term (current) use of anticoagulants; Z88.6 Allergy status to analgesic agent; Z88.8 Allergy status to other drugs, medicaments and biological substances; Z91.013 Allergy to seafood; Z99.89 Dependence on other enabling machines and devices
CPT/HCPCS: 36415; 80053; 85027; 86780; C9803-CS; U0003; U0005

== ENCOUNTER 2022-10-10 15:15 | Inpatient (IN) | payer OTHER ==
[2022-10-10 17:46] VITALS: BMI 23.6
[2022-10-10] MEDS ORDERED: BENZOCAINE/MENTHOL (CHLORASEPTIC ) LOZENGE MM PRN (19:54)
[2022-10-10] MEDS ORDERED: LOPERAMIDE HCL 2 MG CAPSULE PO PRN (19:54)
[2022-10-10] MEDS ORDERED: MAGNESIUM HYDROX 2400MG/30ML ORAL SUSPENSION 30 ML CUP PO PRN (19:54)
[2022-10-10] MEDS ORDERED: ONDANSETRON *ODT* 4 MG TABLET SL PRN (19:54)
[2022-10-10] MEDS ORDERED: MAG HYDROX/AL HYDROX/SIMETH 30 ML UNIT-DOSE CUP PO PRN (19:54)
[2022-10-10] MEDS ORDERED: P-EPHED 60MG/TRIPROLIDI 2.5MG TABLET PO PRN (19:54)
[2022-10-10] MEDS ORDERED: hydrOXYzine PAMOATE 25 MG CAPSULE (FP) PO PRN (19:54)
[2022-10-10] MEDS ORDERED: ACETAMINOPHEN 325 MG TABLET (FP) PO PRN (19:54)
[2022-10-10] MEDS ORDERED: DICYCLOMINE HCL 10 MG CAPSULE PO PRN (19:54)
[2022-10-10] MEDS ORDERED: diazePAM 5 MG TABLET PO PRN (19:57)
[2022-10-10] MEDS ORDERED: COLLOIDAL OATMEAL 1 BAR EACH TP PRN (20:02)
[2022-10-10] MEDS ORDERED: AZITHROMYCIN 250 MG TABLET PO ONE (20:04)
[2022-10-10] MEDS: BUDESONIDE/FORMETEROL FUMARATE 80/4.5 mcg INHALER IH SCH (22:56)
[2022-10-10] MEDS: TAMSULOSIN HCL 0.4 MG CAP PO SCH (22:56)
[2022-10-10] MEDS: LATANOPROST 0.005% OPHTH SOLN 2.5ML BOTTLE OU SCH (22:57)
[2022-10-10] MEDS: TIMOLOL 0.5% OPHTHALMIC SOL 5 ML BOTTLE OU SCH (22:57)
[2022-10-10] MEDS: THIAMINE HCL 100 MG TABLET (FP) PO SCH (22:57)
[2022-10-10] MEDS: ACETAMINOPHEN 325 MG TABLET (FP) PO PRN (23:03)
[2022-10-11] MEDS: diazePAM 5 MG TABLET PO SCH ×4 (06:05→22:49)
[2022-10-11] MEDS: PRENATAL VITAMINS W/ FOLIC ACID TABLET (FP) PO SCH (10:31)
[2022-10-11] MEDS: NICOTINE 14 MG/24 HOURS TOPICAL PATCH TD SCH (10:31)
[2022-10-11] MEDS: BUDESONIDE/FORMETEROL FUMARATE 80/4.5 mcg INHALER IH SCH ×2 (10:33→22:48)
[2022-10-11] MEDS: TIMOLOL 0.5% OPHTHALMIC SOL 5 ML BOTTLE OU SCH ×3 (10:33→22:57)
[2022-10-11] MEDS: AZITHROMYCIN 250 MG TABLET PO SCH (11:00)
[2022-10-11] MEDS: ACETAMINOPHEN 325 MG TABLET (FP) PO PRN (17:48)
[2022-10-11] MEDS: TAMSULOSIN HCL 0.4 MG CAP PO SCH (22:48)
[2022-10-11] MEDS: THIAMINE HCL 100 MG TABLET (FP) PO SCH (22:49)
[2022-10-11] MEDS: LATANOPROST 0.005% OPHTH SOLN 2.5ML BOTTLE OU SCH (22:50)
[2022-10-12] MEDS: diazePAM 5 MG TABLET PO SCH ×3 (06:15→22:42)
[2022-10-12] MEDS: NICOTINE 14 MG/24 HOURS TOPICAL PATCH TD SCH (10:21)
[2022-10-12] MEDS: PRENATAL VITAMINS W/ FOLIC ACID TABLET (FP) PO SCH (10:21)
[2022-10-12] MEDS: BUDESONIDE/FORMETEROL FUMARATE 80/4.5 mcg INHALER IH SCH ×2 (10:21→22:40)
[2022-10-12] MEDS: TIMOLOL 0.5% OPHTHALMIC SOL 5 ML BOTTLE OU SCH ×2 (10:22→22:41)
[2022-10-12] MEDS: AZITHROMYCIN 250 MG TABLET PO SCH (10:22)
[2022-10-12] MEDS: ALBUTEROL SO4 HFA INHALER IH PRN (10:28)
[2022-10-12] MEDS: guaiFENesin 200 MG/10 ML 10 ML UNIT-DOSE CUPS PO PRN ×2 (10:29→21:21)
[2022-10-12 11:17] LABS: HEMATOCRIT 32.8 % (35.4-49); MCH 28.9 pg (25.7-33.7); MCHC 33.6 g/dl (32.0-35.9); MEAN CELL VOLUME 85.9 fl (80-96); MEAN PLT VOLUME 9.1 fl (7.5-11.1); PLATELET COUNT 146 10^3/uL (134-434); RBC 3.82 M/mm3 (4.00-5.60); RDW 16.3 % (11.9-15.9); WHITE BLOOD COUNT 4.8 K/mm3 (4.0-10.0)
[2022-10-12 11:51] LABS: CALCIUM 8.2 mg/dL (8.5-10.1)
[2022-10-12 11:55] LABS: CREATININE 0.7 mg/dL (0.55-1.3)
[2022-10-12 11:56] LABS: BILIRUBIN,TOTAL 0.2 mg/dL (0.2-1); BLOOD UREA NITROGEN 7.5 mg/dL (7-18); TOT PROT 5.7 g/dl (6.4-8.2)
[2022-10-12] MEDS: THIAMINE HCL 100 MG TABLET (FP) PO SCH (22:39)
[2022-10-12] MEDS: TAMSULOSIN HCL 0.4 MG CAP PO SCH (22:39)
[2022-10-12] MEDS: LATANOPROST 0.005% OPHTH SOLN 2.5ML BOTTLE OU SCH (22:41)
[2022-10-12] MEDS: ALBUTEROL SO4 2.5/IPRATROPIUM 0.5 INH SOL 3 ML VIAL.NEB. NEB PRN (23:26)
[2022-10-12] MEDS: FAMOTIDINE 20 MG TABLET PO SCH (23:34)
[2022-10-13] MEDS ORDERED: predniSONE 10 MG TABLET (UD) PO ONE (00:10)
[2022-10-13] MEDS ORDERED: predniSONE 20 MG TABLET (UD) PO ONE (07:29)
[2022-10-13] MEDS ORDERED: diazePAM 5 MG TABLET PO ONE (07:34)
[2022-10-13] MEDS: diazePAM 5 MG TABLET PO SCH ×2 (07:56→17:45)
[2022-10-13] MEDS: predniSONE 20 MG TABLET (UD) PO SCH (10:47)
[2022-10-13] MEDS: LORATADINE 10 MG TABLET PO SCH (10:48)
[2022-10-13] MEDS: FOLIC ACID 1 MG TABLET (FP) PO SCH (10:48)
[2022-10-13] MEDS: AZITHROMYCIN 250 MG TABLET PO SCH (10:48)
[2022-10-13] MEDS: BUDESONIDE/FORMETEROL FUMARATE 80/4.5 mcg INHALER IH SCH ×2 (10:48→21:45)
[2022-10-13] MEDS: FAMOTIDINE 20 MG TABLET PO SCH ×2 (10:48→21:43)
[2022-10-13] MEDS: NICOTINE 14 MG/24 HOURS TOPICAL PATCH TD SCH (10:48)
[2022-10-13] MEDS: PRENATAL VITAMINS W/ FOLIC ACID TABLET (FP) PO SCH (10:48)
[2022-10-13] MEDS: TIMOLOL 0.5% OPHTHALMIC SOL 5 ML BOTTLE OU SCH ×2 (10:49→17:48)
[2022-10-13] MEDS: APIXABAN 5 MG TABLET PO SCH ×2 (10:51→21:43)
[2022-10-13] MEDS: ALBUTEROL SO4 2.5/IPRATROPIUM 0.5 INH SOL 3 ML VIAL.NEB. NEB PRN (17:48)
[2022-10-13] MEDS: guaiFENesin 200 MG/10 ML 10 ML UNIT-DOSE CUPS PO PRN (17:49)
[2022-10-13] MEDS: TAMSULOSIN HCL 0.4 MG CAP PO SCH (21:43)
[2022-10-13] MEDS: traZODone HCL 100 MG TABLET (FP) PO SCH (21:43)
[2022-10-13] MEDS: THIAMINE HCL 100 MG TABLET (FP) PO SCH (21:43)
[2022-10-13] MEDS: ACETAMINOPHEN 325 MG TABLET (FP) PO PRN (21:44)
[2022-10-13] MEDS: ALBUTEROL SO4 HFA INHALER IH PRN (21:46)
[2022-10-13] MEDS: LATANOPROST 0.005% OPHTH SOLN 2.5ML BOTTLE OU SCH (21:48)
[2022-10-13] MEDS: OLANZapine 5 MG TABLET PO SCH (22:35)
[2022-10-14] MEDS ORDERED: diazePAM 5 MG TABLET PO ONE (06:00)
[2022-10-14] MEDS: LORATADINE 10 MG TABLET PO SCH (09:57)
[2022-10-14] MEDS: FAMOTIDINE 20 MG TABLET PO SCH ×2 (09:57→21:31)
[2022-10-14] MEDS: predniSONE 20 MG TABLET (UD) PO SCH (09:57)
[2022-10-14] MEDS: FOLIC ACID 1 MG TABLET (FP) PO SCH (09:57)
[2022-10-14] MEDS: BUDESONIDE/FORMETEROL FUMARATE 80/4.5 mcg INHALER IH SCH ×2 (09:57→21:30)
[2022-10-14] MEDS: NICOTINE 14 MG/24 HOURS TOPICAL PATCH TD SCH (09:58)
[2022-10-14] MEDS: APIXABAN 5 MG TABLET PO SCH ×2 (09:58→21:31)
[2022-10-14] MEDS: PRENATAL VITAMINS W/ FOLIC ACID TABLET (FP) PO SCH (09:58)
[2022-10-14] MEDS: AZITHROMYCIN 250 MG TABLET PO SCH (09:58)
[2022-10-14] MEDS: TIMOLOL 0.5% OPHTHALMIC SOL 5 ML BOTTLE OU SCH ×2 (10:00→17:32)
[2022-10-14] MEDS: ALBUTEROL SO4 HFA INHALER IH PRN (10:02)
[2022-10-14] MEDS ORDERED: guaiFENesin 600 MG TABLET.ER (FP) PO ONE (15:34)
[2022-10-14] MEDS: LATANOPROST 0.005% OPHTH SOLN 2.5ML BOTTLE OU SCH (21:30)
[2022-10-14] MEDS: OLANZapine 5 MG TABLET PO SCH (21:31)
[2022-10-14] MEDS: TAMSULOSIN HCL 0.4 MG CAP PO SCH (21:31)
[2022-10-14] MEDS: traZODone HCL 100 MG TABLET (FP) PO SCH (21:31)
[2022-10-14] MEDS: THIAMINE HCL 100 MG TABLET (FP) PO SCH (21:31)
[2022-10-14] MEDS ORDERED: guaiFENesin 600 MG TABLET.ER (FP) PO SCH (22:00)
[2022-10-15 09:24] VITALS: RESP 18
[2022-10-15] MEDS ORDERED: predniSONE 10 MG TABLET (UD) PO SCH (10:00)
[2022-10-15] MEDS: LORATADINE 10 MG TABLET PO SCH (10:14)
[2022-10-15] MEDS: BUDESONIDE/FORMETEROL FUMARATE 80/4.5 mcg INHALER IH SCH (10:14)
[2022-10-15] MEDS: APIXABAN 5 MG TABLET PO SCH (10:15)
[2022-10-15] MEDS: FAMOTIDINE 20 MG TABLET PO SCH (10:15)
[2022-10-15] MEDS: NICOTINE 14 MG/24 HOURS TOPICAL PATCH TD SCH (10:15)
[2022-10-15] MEDS: PRENATAL VITAMINS W/ FOLIC ACID TABLET (FP) PO SCH (10:15)
[2022-10-15] MEDS: FOLIC ACID 1 MG TABLET (FP) PO SCH (10:15)
[2022-10-15] MEDS: TIMOLOL 0.5% OPHTHALMIC SOL 5 ML BOTTLE OU SCH (10:16)
[2022-10-15 13:10] VITALS: BP 104/69; PULSE 91; TEMP 96.1
[2022-10-17] MEDS ORDERED: predniSONE 20 MG TABLET (UD) PO SCH (10:00)
[2022-10-19] MEDS ORDERED: predniSONE 10 MG TABLET (UD) PO SCH (10:00)
[2022-10-21] MEDS ORDERED: predniSONE 5 MG TABLET (UD) PO SCH (10:00)
== END 2022-10-15 15:16 | disposition home or self-care (01) | DRG 774 ==
LOC: YASAS 15:15 → Y3N 20:23
PROVIDERS: ADMIT Allergy & Immunology; ATTEND Surgery
PROC: HZ2ZZZZ Detoxification Services for Substance Abuse Treatment (ICD-10-PCS; principal; 2022-10-10)
DX: F10.230 Alcohol dependence with withdrawal, uncomplicated (principal); F14.20 Cocaine dependence, uncomplicated; F12.90 Cannabis use, unspecified, uncomplicated; F17.210 Nicotine dependence, cigarettes, uncomplicated; F20.0 Paranoid schizophrenia; F41.9 Anxiety disorder, unspecified; F32.A Depression, unspecified; I10 Essential (primary) hypertension; J44.1 Chronic obstructive pulmonary disease with (acute) exacerbation; H40.2231 Chronic angle-closure glaucoma, bilateral, mild stage; M15.9 Polyosteoarthritis, unspecified; N40.0 Benign prostatic hyperplasia without lower urinary tract symptoms; Z79.01 Long term (current) use of anticoagulants; Z99.89 Dependence on other enabling machines and devices; Z88.0 Allergy status to penicillin; Z88.8 Allergy status to other drugs, medicaments and biological substances; Z91.013 Allergy to seafood
CPT/HCPCS: 36415; 71045-TC-FY; 80053; 85027; 86780; 94640; C9803-CS; Q0162; U0003; U0005

== ENCOUNTER 2022-12-01 13:00 | Inpatient (IN) | payer OTHER ==
[2022-12-01] MEDS ORDERED: NALOXONE HCL (KLOXXADO) 8 MG SPRAY NS PRN (16:07)
[2022-12-01] MEDS ORDERED: BENZOCAINE/MENTHOL (CHLORASEPTIC ) LOZENGE MM PRN (16:07)
[2022-12-01] MEDS ORDERED: IBUPROFEN 400 MG TABLET (FP) PO PRN (16:07)
[2022-12-01] MEDS ORDERED: MAGNESIUM HYDROX 2400MG/30ML ORAL SUSPENSION 30 ML CUP PO PRN (16:07)
[2022-12-01] MEDS ORDERED: MAG HYDROX/AL HYDROX/SIMETH 30 ML UNIT-DOSE CUP PO PRN (16:07)
[2022-12-01] MEDS ORDERED: ONDANSETRON *ODT* 4 MG TABLET SL PRN (16:07)
[2022-12-01] MEDS ORDERED: LOPERAMIDE HCL 2 MG CAPSULE PO PRN (16:07)
[2022-12-01] MEDS ORDERED: diazePAM 5 MG TABLET PO PRN (16:07)
[2022-12-01] MEDS ORDERED: METHOCARBAMOL 500 MG TABLET PO PRN (16:07)
[2022-12-01] MEDS ORDERED: ACETAMINOPHEN 325 MG TABLET (FP) PO PRN ×2 (16:07)
[2022-12-01] MEDS ORDERED: NICOTINE 10 MG CARTRIDGE (INHALER) IH PRN (16:07)
[2022-12-01] MEDS ORDERED: IBUPROFEN 600 MG TABLET (FP) PO PRN (16:07)
[2022-12-01] MEDS ORDERED: POLYETHYLENE GLYCOL (HEALTHYLAX) 3350 17 GM PACKET PO PRN (16:07)
[2022-12-01] MEDS ORDERED: BISMUTH SUBSALICYLATE 524 MG/30 ML PO PRN (16:07)
[2022-12-01] MEDS ORDERED: DICYCLOMINE HCL 10 MG CAPSULE PO PRN (16:07)
[2022-12-01] MEDS ORDERED: diazePAM 5 MG TABLET PO SCH (17:00)
[2022-12-01] MEDS: NICOTINE 21 MG/24 HOURS TOPICAL PATCH TD SCH (18:52)
[2022-12-01] MEDS: diazePAM 5 MG TABLET PO SCH (18:52)
[2022-12-01] MEDS: PRENATAL VITAMINS W/ FOLIC ACID TABLET (FP) PO SCH (18:52)
[2022-12-01] MEDS ORDERED: MELATONIN 5 MG TABLETS PO SCH (22:00)
[2022-12-01] MEDS: FAMOTIDINE 20 MG TABLET PO SCH (23:03)
[2022-12-01] MEDS: TIMOLOL 0.5% OPHTHALMIC SOL 5 ML BOTTLE OU SCH (23:03)
[2022-12-01] MEDS: LATANOPROST 0.005% OPHTH SOLN 2.5ML BOTTLE OU SCH (23:03)
[2022-12-01] MEDS: THIAMINE HCL 100 MG TABLET (FP) PO SCH (23:03)
[2022-12-01] MEDS: BUDESONIDE/FORMETEROL FUMARATE 80/4.5 mcg INHALER IH SCH (23:03)
[2022-12-01] MEDS: CARVEDILOL 6.25 MG TABLET (FP) PO SCH (23:03)
[2022-12-01] MEDS: APIXABAN 5 MG TABLET PO SCH (23:03)
[2022-12-02] MEDS: diazePAM 5 MG TABLET PO SCH ×4 (01:03→18:14)
[2022-12-02] MEDS: FAMOTIDINE 20 MG TABLET PO SCH ×2 (10:39→22:57)
[2022-12-02] MEDS: LISINOPRIL 5 MG TABLET PO SCH (10:39)
[2022-12-02] MEDS: TAMSULOSIN HCL 0.4 MG CAP PO SCH (10:39)
[2022-12-02] MEDS: LORATADINE 10 MG TABLET PO SCH (10:39)
[2022-12-02] MEDS: PRENATAL VITAMINS W/ FOLIC ACID TABLET (FP) PO SCH (10:40)
[2022-12-02] MEDS: NICOTINE 21 MG/24 HOURS TOPICAL PATCH TD SCH (10:40)
[2022-12-02] MEDS: APIXABAN 5 MG TABLET PO SCH ×2 (10:40→22:57)
[2022-12-02] MEDS: CARVEDILOL 6.25 MG TABLET (FP) PO SCH ×2 (10:41→22:25)
[2022-12-02] MEDS: TIMOLOL 0.5% OPHTHALMIC SOL 5 ML BOTTLE OU SCH ×2 (10:42→17:58)
[2022-12-02] MEDS: BUDESONIDE/FORMETEROL FUMARATE 80/4.5 mcg INHALER IH SCH ×2 (10:43→22:56)
[2022-12-02] MEDS ORDERED: TIMOLOL 0.5% OPHTHALMIC SOL 5 ML BOTTLE OU SCH (13:33)
[2022-12-02] MEDS ORDERED: guaiFENesin 200 MG/10 ML 10 ML UNIT-DOSE CUPS PO PRN (13:43)
[2022-12-02] MEDS: hydrOXYzine PAMOATE 25 MG CAPSULE (FP) PO PRN (13:47)
[2022-12-02] MEDS: LATANOPROST 0.005% OPHTH SOLN 2.5ML BOTTLE OU SCH (22:56)
[2022-12-02] MEDS: THIAMINE HCL 100 MG TABLET (FP) PO SCH (22:57)
[2022-12-02] MEDS: OLANZapine 5 MG TABLET PO SCH (22:57)
[2022-12-02] MEDS: traZODone HCL 100 MG TABLET (FP) PO SCH (22:57)
[2022-12-03] MEDS: diazePAM 5 MG TABLET PO SCH ×4 (02:01→21:36)
[2022-12-03 09:32] LABS: HEMATOCRIT 32.1 % (35.4-49); HEMOGLOBIN 10.6 GM/dL (11.7-16.9); MCH 28.2 pg (25.7-33.7); MEAN CELL VOLUME 85.5 fl (80-96); MEAN PLT VOLUME 9.1 fl (7.5-11.1); PLATELET COUNT 190 10^3/uL (134-434); RBC 3.75 M/mm3 (4.00-5.60); RDW 16.1 % (11.9-15.9); WHITE BLOOD COUNT 4.4 K/mm3 (4.0-10.0)
[2022-12-03 10:23] LABS: CALCIUM 8.6 mg/dL (8.5-10.1)
[2022-12-03 10:24] LABS: ALBUMIN 3.1 g/dl (3.4-5.0); BLOOD UREA NITROGEN 13.9 mg/dL (7-18)
[2022-12-03 10:27] LABS: CREATININE 0.9 mg/dL (0.55-1.3)
[2022-12-03 10:28] LABS: BILIRUBIN,TOTAL 0.4 mg/dL (0.2-1); TOT PROT 6.3 g/dl (6.4-8.2)
[2022-12-03] MEDS: FAMOTIDINE 20 MG TABLET PO SCH ×2 (10:32→21:35)
[2022-12-03] MEDS: TAMSULOSIN HCL 0.4 MG CAP PO SCH (10:32)
[2022-12-03] MEDS: LORATADINE 10 MG TABLET PO SCH (10:32)
[2022-12-03] MEDS: LISINOPRIL 5 MG TABLET PO SCH (10:33)
[2022-12-03] MEDS: NICOTINE 21 MG/24 HOURS TOPICAL PATCH TD SCH (10:34)
[2022-12-03] MEDS: APIXABAN 5 MG TABLET PO SCH ×2 (10:34→21:34)
[2022-12-03] MEDS: CARVEDILOL 6.25 MG TABLET (FP) PO SCH ×2 (10:34→21:36)
[2022-12-03] MEDS: BUDESONIDE/FORMETEROL FUMARATE 80/4.5 mcg INHALER IH SCH ×2 (10:35→21:34)
[2022-12-03] MEDS: TIMOLOL 0.5% OPHTHALMIC SOL 5 ML BOTTLE OU SCH ×2 (10:35→18:19)
[2022-12-03] MEDS: PRENATAL VITAMINS W/ FOLIC ACID TABLET (FP) PO SCH (10:35)
[2022-12-03] MEDS ORDERED: LACTULOSE 20 GM/30 ML UDC (FOR ORAL USE ONLY) PO PRN (15:16)
[2022-12-03] MEDS ORDERED: COLLOIDAL OATMEAL 1 BAR EACH TP PRN (16:51)
[2022-12-03] MEDS: LACTULOSE 20 GM/30 ML UDC (FOR ORAL USE ONLY) PO SCH ×2 (18:19→21:36)
[2022-12-03] MEDS: hydrOXYzine PAMOATE 25 MG CAPSULE (FP) PO PRN (18:20)
[2022-12-03] MEDS: LATANOPROST 0.005% OPHTH SOLN 2.5ML BOTTLE OU SCH (21:33)
[2022-12-03] MEDS: OLANZapine 5 MG TABLET PO SCH (21:35)
[2022-12-03] MEDS: traZODone HCL 100 MG TABLET (FP) PO SCH (21:35)
[2022-12-03] MEDS: THIAMINE HCL 100 MG TABLET (FP) PO SCH (21:35)
[2022-12-03] MEDS: ALBUTEROL SO4 HFA INHALER IH PRN (21:51)
[2022-12-04] MEDS: diazePAM 5 MG TABLET PO SCH ×2 (06:42→17:44)
[2022-12-04] MEDS: LISINOPRIL 5 MG TABLET PO SCH (09:50)
[2022-12-04] MEDS: TAMSULOSIN HCL 0.4 MG CAP PO SCH (09:50)
[2022-12-04] MEDS: PRENATAL VITAMINS W/ FOLIC ACID TABLET (FP) PO SCH (09:50)
[2022-12-04] MEDS: LACTULOSE 20 GM/30 ML UDC (FOR ORAL USE ONLY) PO SCH ×4 (09:50→21:47)
[2022-12-04] MEDS: CARVEDILOL 6.25 MG TABLET (FP) PO SCH ×2 (09:50→21:47)
[2022-12-04] MEDS: LORATADINE 10 MG TABLET PO SCH (09:51)
[2022-12-04] MEDS: APIXABAN 5 MG TABLET PO SCH ×2 (09:51→21:48)
[2022-12-04] MEDS: FAMOTIDINE 20 MG TABLET PO SCH ×2 (09:51→21:47)
[2022-12-04] MEDS: TETRAHYDROZOLINE HCL EYE DROPS OU PRN ×2 (09:52→21:58)
[2022-12-04] MEDS: BUDESONIDE/FORMETEROL FUMARATE 80/4.5 mcg INHALER IH SCH ×2 (09:53→21:47)
[2022-12-04] MEDS: TIMOLOL 0.5% OPHTHALMIC SOL 5 ML BOTTLE OU SCH ×2 (09:54→17:43)
[2022-12-04] MEDS: NICOTINE 21 MG/24 HOURS TOPICAL PATCH TD SCH (09:55)
[2022-12-04] MEDS: ALBUTEROL SO4 HFA INHALER IH PRN (21:47)
[2022-12-04] MEDS: THIAMINE HCL 100 MG TABLET (FP) PO SCH (21:47)
[2022-12-04] MEDS: traZODone HCL 100 MG TABLET (FP) PO SCH (21:47)
[2022-12-04] MEDS: OLANZapine 5 MG TABLET PO SCH (21:47)
[2022-12-04] MEDS: LATANOPROST 0.005% OPHTH SOLN 2.5ML BOTTLE OU SCH (21:48)
[2022-12-05] MEDS ORDERED: diazePAM 5 MG TABLET PO ONE (06:00)
[2022-12-05 07:06] VITALS: TEMP 97.7
[2022-12-05 09:25] VITALS: BP 127/77; PULSE 72; RESP 16
[2022-12-05] MEDS: APIXABAN 5 MG TABLET PO SCH (10:28)
[2022-12-05] MEDS: TAMSULOSIN HCL 0.4 MG CAP PO SCH (10:28)
[2022-12-05] MEDS: LORATADINE 10 MG TABLET PO SCH (10:29)
[2022-12-05] MEDS: FAMOTIDINE 20 MG TABLET PO SCH (10:29)
[2022-12-05] MEDS: ALBUTEROL SO4 HFA INHALER IH PRN (10:29)
[2022-12-05] MEDS: PRENATAL VITAMINS W/ FOLIC ACID TABLET (FP) PO SCH (10:29)
[2022-12-05] MEDS: NICOTINE 21 MG/24 HOURS TOPICAL PATCH TD SCH (10:29)
[2022-12-05] MEDS: BUDESONIDE/FORMETEROL FUMARATE 80/4.5 mcg INHALER IH SCH (10:29)
[2022-12-05] MEDS: CARVEDILOL 6.25 MG TABLET (FP) PO SCH (10:29)
[2022-12-05] MEDS: LACTULOSE 20 GM/30 ML UDC (FOR ORAL USE ONLY) PO SCH (10:29)
[2022-12-05] MEDS: TIMOLOL 0.5% OPHTHALMIC SOL 5 ML BOTTLE OU SCH (10:31)
[2022-12-05] MEDS: LISINOPRIL 5 MG TABLET PO SCH (10:32)
== END 2022-12-05 11:03 | disposition other institution (70) | DRG 774 ==
LOC: YASAS 13:00 → Y3N 17:14
PROVIDERS: ADMIT Allergy & Immunology; ATTEND Surgery
PROC: HZ2ZZZZ Detoxification Services for Substance Abuse Treatment (ICD-10-PCS; principal; 2022-12-01)
DX: F10.230 Alcohol dependence with withdrawal, uncomplicated (principal); F14.10 Cocaine abuse, uncomplicated; F13.10 Sedative, hypnotic or anxiolytic abuse, uncomplicated; F12.10 Cannabis abuse, uncomplicated; F17.210 Nicotine dependence, cigarettes, uncomplicated; F19.282 Other psychoactive substance dependence with psychoactive substance-induced sleep disorder; F19.280 Other psychoactive substance dependence with psychoactive substance-induced anxiety disorder; F41.9 Anxiety disorder, unspecified; G47.00 Insomnia, unspecified; J44.9 Chronic obstructive pulmonary disease, unspecified; M15.9 Polyosteoarthritis, unspecified; N40.0 Benign prostatic hyperplasia without lower urinary tract symptoms; Z91.199 Patient's noncompliance with other medical treatment and regimen due to unspecified reason; Z88.0 Allergy status to penicillin; Z88.8 Allergy status to other drugs, medicaments and biological substances; Z88.6 Allergy status to analgesic agent
CPT/HCPCS: 36415; 80053; 82140; 85027; 86780; C9803-CS; U0003; U0005

== ENCOUNTER 2023-01-02 13:23 | Inpatient (IN) | payer OTHER ==
[2023-01-02 17:17] VITALS: BMI 26.4
[2023-01-02] MEDS ORDERED: BISMUTH SUBSALICYLATE 524 MG/30 ML PO PRN (17:53)
[2023-01-02] MEDS ORDERED: IBUPROFEN 600 MG TABLET (FP) PO PRN (17:53)
[2023-01-02] MEDS ORDERED: MAGNESIUM HYDROX 2400MG/30ML ORAL SUSPENSION 30 ML CUP PO PRN (17:53)
[2023-01-02] MEDS ORDERED: NICOTINE 10 MG CARTRIDGE (INHALER) IH PRN (17:53)
[2023-01-02] MEDS ORDERED: BENZOCAINE/MENTHOL (CHLORASEPTIC ) LOZENGE MM PRN (17:53)
[2023-01-02] MEDS ORDERED: LOPERAMIDE HCL 2 MG CAPSULE PO PRN (17:53)
[2023-01-02] MEDS ORDERED: DICYCLOMINE HCL 10 MG CAPSULE PO PRN (17:53)
[2023-01-02] MEDS ORDERED: ACETAMINOPHEN 325 MG TABLET (FP) PO PRN (17:53)
[2023-01-02] MEDS ORDERED: NALOXONE HCL (KLOXXADO) 8 MG SPRAY NS PRN (17:53)
[2023-01-02] MEDS ORDERED: ONDANSETRON *ODT* 4 MG TABLET SL PRN (17:53)
[2023-01-02] MEDS ORDERED: IBUPROFEN 400 MG TABLET (FP) PO PRN (17:53)
[2023-01-02] MEDS ORDERED: POLYETHYLENE GLYCOL (HEALTHYLAX) 3350 17 GM PACKET PO PRN (17:53)
[2023-01-02] MEDS ORDERED: MAG HYDROX/AL HYDROX/SIMETH 30 ML UNIT-DOSE CUP PO PRN (17:53)
[2023-01-02] MEDS ORDERED: guaiFENesin 200 MG/10 ML 10 ML UNIT-DOSE CUPS PO PRN (17:59)
[2023-01-02] MEDS: METHOCARBAMOL 500 MG TABLET PO PRN (19:05)
[2023-01-02] MEDS: LACTULOSE 20 GM/30 ML UDC (FOR ORAL USE ONLY) PO SCH ×2 (19:05→23:34)
[2023-01-02] MEDS: LORATADINE 10 MG TABLET PO SCH (19:05)
[2023-01-02] MEDS: LISINOPRIL 5 MG TABLET PO SCH (19:05)
[2023-01-02] MEDS: PRENATAL VITAMINS W/ FOLIC ACID TABLET (FP) PO SCH (19:05)
[2023-01-02] MEDS: diazePAM 5 MG TABLET PO SCH ×2 (19:06→23:20)
[2023-01-02] MEDS: NICOTINE 21 MG/24 HOURS TOPICAL PATCH TD SCH (19:11)
[2023-01-02] MEDS: FOLIC ACID 1 MG TABLET (FP) PO SCH (19:19)
[2023-01-02] MEDS ORDERED: MELATONIN 5 MG TABLETS PO SCH (22:00)
[2023-01-02] MEDS: FAMOTIDINE 20 MG TABLET PO SCH (22:54)
[2023-01-02] MEDS: LATANOPROST 0.005% OPHTH SOLN 2.5ML BOTTLE OU SCH (22:54)
[2023-01-02] MEDS: APIXABAN 5 MG TABLET PO SCH (23:20)
[2023-01-02] MEDS: CARVEDILOL 6.25 MG TABLET (FP) PO SCH (23:20)
[2023-01-02] MEDS: TAMSULOSIN HCL 0.4 MG CAP PO SCH (23:21)
[2023-01-02] MEDS: THIAMINE HCL 100 MG TABLET (FP) PO SCH (23:22)
[2023-01-02] MEDS: BUDESONIDE/FORMETEROL FUMARATE 80/4.5 mcg INHALER IH SCH (23:32)
[2023-01-03] MEDS: diazePAM 5 MG TABLET PO SCH ×4 (05:45→22:57)
[2023-01-03] MEDS ORDERED: hydrOXYzine PAMOATE 50 MG CAPSULE (FP) PO PRN (10:26)
[2023-01-03] MEDS: FAMOTIDINE 20 MG TABLET PO SCH ×2 (10:59→22:55)
[2023-01-03] MEDS: PRENATAL VITAMINS W/ FOLIC ACID TABLET (FP) PO SCH (10:59)
[2023-01-03] MEDS: LORATADINE 10 MG TABLET PO SCH (10:59)
[2023-01-03] MEDS: APIXABAN 5 MG TABLET PO SCH ×2 (10:59→22:54)
[2023-01-03] MEDS: FOLIC ACID 1 MG TABLET (FP) PO SCH (11:00)
[2023-01-03] MEDS: NICOTINE 21 MG/24 HOURS TOPICAL PATCH TD SCH (11:01)
[2023-01-03] MEDS: LISINOPRIL 5 MG TABLET PO SCH (11:02)
[2023-01-03] MEDS: LACTULOSE 20 GM/30 ML UDC (FOR ORAL USE ONLY) PO SCH ×4 (11:02→22:56)
[2023-01-03] MEDS: CARVEDILOL 6.25 MG TABLET (FP) PO SCH ×2 (11:02→22:54)
[2023-01-03] MEDS: BUDESONIDE/FORMETEROL FUMARATE 80/4.5 mcg INHALER IH SCH ×2 (11:02→22:57)
[2023-01-03] MEDS: ACETAMINOPHEN 325 MG TABLET (FP) PO PRN (11:52)
[2023-01-03] MEDS: hydrOXYzine PAMOATE 25 MG CAPSULE (FP) PO PRN ×2 (11:53→22:54)
[2023-01-03] MEDS ORDERED: TETRAHYDROZOLINE HCL EYE DROPS OU PRN (15:42)
[2023-01-03] MEDS: THIAMINE HCL 100 MG TABLET (FP) PO SCH (22:54)
[2023-01-03] MEDS: TAMSULOSIN HCL 0.4 MG CAP PO SCH (22:54)
[2023-01-03] MEDS: traZODone HCL 100 MG TABLET (FP) PO SCH (22:56)
[2023-01-03] MEDS: TIMOLOL 0.5% OPHTHALMIC SOL 5 ML BOTTLE OU SCH (22:57)
[2023-01-03] MEDS: LATANOPROST 0.005% OPHTH SOLN 2.5ML BOTTLE OU SCH (22:58)
[2023-01-03] MEDS: OLANZapine 5 MG TABLET PO SCH (22:58)
[2023-01-04] MEDS: diazePAM 5 MG TABLET PO SCH ×3 (05:47→21:58)
[2023-01-04] MEDS: CARVEDILOL 6.25 MG TABLET (FP) PO SCH ×2 (10:41→23:15)
[2023-01-04] MEDS: FOLIC ACID 1 MG TABLET (FP) PO SCH (10:41)
[2023-01-04] MEDS: APIXABAN 5 MG TABLET PO SCH ×2 (10:41→21:57)
[2023-01-04] MEDS: PRENATAL VITAMINS W/ FOLIC ACID TABLET (FP) PO SCH (10:41)
[2023-01-04] MEDS: LORATADINE 10 MG TABLET PO SCH (10:41)
[2023-01-04] MEDS: NICOTINE 21 MG/24 HOURS TOPICAL PATCH TD SCH (10:42)
[2023-01-04] MEDS: LISINOPRIL 5 MG TABLET PO SCH (10:42)
[2023-01-04] MEDS: FAMOTIDINE 20 MG TABLET PO SCH ×2 (10:42→21:57)
[2023-01-04] MEDS: LACTULOSE 20 GM/30 ML UDC (FOR ORAL USE ONLY) PO SCH ×4 (10:42→21:58)
[2023-01-04] MEDS: TIMOLOL 0.5% OPHTHALMIC SOL 5 ML BOTTLE OU SCH ×2 (10:45→21:59)
[2023-01-04] MEDS: METHOCARBAMOL 500 MG TABLET PO PRN (10:45)
[2023-01-04] MEDS: ALBUTEROL SO4 HFA INHALER IH PRN (10:51)
[2023-01-04] MEDS: BUDESONIDE/FORMETEROL FUMARATE 80/4.5 mcg INHALER IH SCH ×2 (10:51→21:59)
[2023-01-04 12:18] LABS: HEMATOCRIT 31.8 % (35.4-49); HEMOGLOBIN 10.7 GM/dL (11.7-16.9); MCHC 33.6 g/dl (32.0-35.9); MEAN CELL VOLUME 86.3 fl (80-96); MEAN PLT VOLUME 8.9 fl (7.5-11.1); PLATELET COUNT 192 10^3/uL (134-434); RBC 3.69 M/mm3 (4.00-5.60); RDW 16.1 % (11.9-15.9); WHITE BLOOD COUNT 3.8 K/mm3 (4.0-10.0)
[2023-01-04 12:52] LABS: CALCIUM 8.7 mg/dL (8.5-10.1)
[2023-01-04 12:53] LABS: ALBUMIN 3.1 g/dl (3.4-5.0); BLOOD UREA NITROGEN 8.1 mg/dL (7-18)
[2023-01-04 12:56] LABS: CREATININE 0.9 mg/dL (0.55-1.3)
[2023-01-04 12:57] LABS: BILIRUBIN,TOTAL 0.5 mg/dL (0.2-1)
[2023-01-04 12:58] LABS: TOT PROT 6.1 g/dl (6.4-8.2)
[2023-01-04] MEDS: ACETAMINOPHEN 325 MG TABLET (FP) PO PRN (13:28)
[2023-01-04] MEDS: THIAMINE HCL 100 MG TABLET (FP) PO SCH (21:57)
[2023-01-04] MEDS: OLANZapine 5 MG TABLET PO SCH (21:57)
[2023-01-04] MEDS: traZODone HCL 100 MG TABLET (FP) PO SCH (21:57)
[2023-01-04] MEDS: TAMSULOSIN HCL 0.4 MG CAP PO SCH (21:57)
[2023-01-04] MEDS: OXYMETAZOLINE 0.05% NASAL SOLUTION 15 ML BOTTLE NS PRN (21:58)
[2023-01-04] MEDS: LATANOPROST 0.005% OPHTH SOLN 2.5ML BOTTLE OU SCH (21:59)
[2023-01-05] MEDS: diazePAM 5 MG TABLET PO SCH ×2 (06:20→17:35)
[2023-01-05] MEDS: PRENATAL VITAMINS W/ FOLIC ACID TABLET (FP) PO SCH (10:44)
[2023-01-05] MEDS: FOLIC ACID 1 MG TABLET (FP) PO SCH (10:44)
[2023-01-05] MEDS: APIXABAN 5 MG TABLET PO SCH ×2 (10:45→22:59)
[2023-01-05] MEDS: CARVEDILOL 6.25 MG TABLET (FP) PO SCH ×2 (10:45→22:59)
[2023-01-05] MEDS: hydrOXYzine PAMOATE 25 MG CAPSULE (FP) PO PRN (10:45)
[2023-01-05] MEDS: METHOCARBAMOL 500 MG TABLET PO PRN (10:45)
[2023-01-05] MEDS: FAMOTIDINE 20 MG TABLET PO SCH ×2 (10:45→23:00)
[2023-01-05] MEDS: LORATADINE 10 MG TABLET PO SCH (10:45)
[2023-01-05] MEDS: BUDESONIDE/FORMETEROL FUMARATE 80/4.5 mcg INHALER IH SCH ×2 (10:46→23:00)
[2023-01-05] MEDS: LACTULOSE 20 GM/30 ML UDC (FOR ORAL USE ONLY) PO SCH ×5 (10:46→22:59)
[2023-01-05] MEDS: NICOTINE 21 MG/24 HOURS TOPICAL PATCH TD SCH (10:48)
[2023-01-05] MEDS: OXYMETAZOLINE 0.05% NASAL SOLUTION 15 ML BOTTLE NS PRN (10:48)
[2023-01-05] MEDS: LISINOPRIL 5 MG TABLET PO SCH (10:50)
[2023-01-05] MEDS: TIMOLOL 0.5% OPHTHALMIC SOL 5 ML BOTTLE OU SCH (10:50)
[2023-01-05] MEDS: ALBUTEROL SO4 HFA INHALER IH PRN (11:00)
[2023-01-05 13:09] VITALS: RESP 17
[2023-01-05] MEDS: traZODone HCL 100 MG TABLET (FP) PO SCH (22:59)
[2023-01-05] MEDS: TAMSULOSIN HCL 0.4 MG CAP PO SCH (22:59)
[2023-01-05] MEDS: THIAMINE HCL 100 MG TABLET (FP) PO SCH (23:00)
[2023-01-05] MEDS: OLANZapine 5 MG TABLET PO SCH (23:00)
[2023-01-05] MEDS: LATANOPROST 0.005% OPHTH SOLN 2.5ML BOTTLE OU SCH (23:00)
[2023-01-06] MEDS ORDERED: diazePAM 5 MG TABLET PO ONE (06:00)
[2023-01-06 09:47] VITALS: BP 118/69; PULSE 80; TEMP 98.6
[2023-01-06] MEDS: PRENATAL VITAMINS W/ FOLIC ACID TABLET (FP) PO SCH (09:49)
[2023-01-06] MEDS: LISINOPRIL 5 MG TABLET PO SCH (09:49)
[2023-01-06] MEDS: FAMOTIDINE 20 MG TABLET PO SCH (09:49)
[2023-01-06] MEDS: CARVEDILOL 6.25 MG TABLET (FP) PO SCH (09:50)
[2023-01-06] MEDS: LORATADINE 10 MG TABLET PO SCH (09:50)
[2023-01-06] MEDS: APIXABAN 5 MG TABLET PO SCH (09:50)
[2023-01-06] MEDS: BUDESONIDE/FORMETEROL FUMARATE 80/4.5 mcg INHALER IH SCH (09:51)
[2023-01-06] MEDS: FOLIC ACID 1 MG TABLET (FP) PO SCH (09:51)
[2023-01-06] MEDS: NICOTINE 21 MG/24 HOURS TOPICAL PATCH TD SCH (09:51)
[2023-01-06] MEDS: LACTULOSE 20 GM/30 ML UDC (FOR ORAL USE ONLY) PO SCH (10:26)
[2023-01-06] MEDS ORDERED: TIMOLOL 0.5% OPHTHALMIC SOL 5 ML BOTTLE OU SCH (18:24)
== END 2023-01-06 09:53 | disposition home or self-care (01) | DRG 774 ==
LOC: YASAS 13:23 → Y6N 18:21
PROVIDERS: ADMIT Allergy & Immunology; ATTEND Family Medicine
PROC: HZ2ZZZZ Detoxification Services for Substance Abuse Treatment (ICD-10-PCS; principal; 2023-01-02)
DX: F10.230 Alcohol dependence with withdrawal, uncomplicated (principal); F14.20 Cocaine dependence, uncomplicated; F12.20 Cannabis dependence, uncomplicated; F17.210 Nicotine dependence, cigarettes, uncomplicated; F20.0 Paranoid schizophrenia; F19.280 Other psychoactive substance dependence with psychoactive substance-induced anxiety disorder; F19.282 Other psychoactive substance dependence with psychoactive substance-induced sleep disorder; G47.00 Insomnia, unspecified; I10 Essential (primary) hypertension; J44.9 Chronic obstructive pulmonary disease, unspecified; K21.9 Gastro-esophageal reflux disease without esophagitis; H54.61 Unqualified visual loss, right eye, normal vision left eye; M54.50 Low back pain, unspecified; G89.29 Other chronic pain; N40.0 Benign prostatic hyperplasia without lower urinary tract symptoms; Z86.718 Personal history of other venous thrombosis and embolism; Z79.01 Long term (current) use of anticoagulants; Z87.11 Personal history of peptic ulcer disease; Z86.69 Personal history of other diseases of the nervous system and sense organs; Z99.89 Dependence on other enabling machines and devices; Z88.0 Allergy status to penicillin; Z88.8 Allergy status to other drugs, medicaments and biological substances
CPT/HCPCS: 36415; 80053; 82140; 85027; 86780; C9803-CS; Q0162; U0003; U0005

== ENCOUNTER 2023-02-13 17:33 | Inpatient (IN) | payer OTHER ==
[2023-02-13 20:19] VITALS: BMI 31.7
[2023-02-13] MEDS ORDERED: DICYCLOMINE HCL 10 MG CAPSULE PO PRN (22:10)
[2023-02-13] MEDS ORDERED: POLYETHYLENE GLYCOL (HEALTHYLAX) 3350 17 GM PACKET PO PRN (22:10)
[2023-02-13] MEDS ORDERED: BENZOCAINE/MENTHOL (CHLORASEPTIC ) LOZENGE MM PRN (22:10)
[2023-02-13] MEDS ORDERED: NICOTINE 10 MG CARTRIDGE (INHALER) IH PRN (22:10)
[2023-02-13] MEDS ORDERED: LOPERAMIDE HCL 2 MG CAPSULE PO PRN (22:10)
[2023-02-13] MEDS ORDERED: MAG HYDROX/AL HYDROX/SIMETH 30 ML UNIT-DOSE CUP PO PRN (22:10)
[2023-02-13] MEDS ORDERED: ONDANSETRON *ODT* 4 MG TABLET SL PRN (22:10)
[2023-02-13] MEDS ORDERED: BENZONATATE 200 MG CAPSULE PO PRN (22:10)
[2023-02-13] MEDS ORDERED: NALOXONE HCL 0.4 MG/ML VIAL IM PRN (22:10)
[2023-02-13] MEDS ORDERED: NALOXONE HCL (KLOXXADO) 8 MG SPRAY NS PRN (22:10)
[2023-02-13] MEDS ORDERED: guaiFENesin 600 MG TABLET.ER (FP) PO PRN (22:10)
[2023-02-13] MEDS: MELATONIN 5 MG TABLETS PO SCH (23:44)
[2023-02-14] MEDS ORDERED: diazePAM 5 MG TABLET PO PRN (09:44)
[2023-02-14] MEDS ORDERED: TETRAHYDROZOLINE HCL EYE DROPS OU PRN (09:45)
[2023-02-14] MEDS: LISINOPRIL 5 MG TABLET PO SCH (10:50)
[2023-02-14] MEDS: BUDESONIDE/FORMETEROL FUMARATE 80/4.5 mcg INHALER IH SCH ×2 (10:50→23:05)
[2023-02-14] MEDS: PRENATAL VITAMINS W/ FOLIC ACID TABLET (FP) PO SCH (10:51)
[2023-02-14] MEDS: CARVEDILOL 6.25 MG TABLET (FP) PO SCH ×2 (10:51→23:10)
[2023-02-14] MEDS: FAMOTIDINE 20 MG TABLET PO SCH ×2 (10:51→23:11)
[2023-02-14] MEDS: NICOTINE 21 MG/24 HOURS TOPICAL PATCH TD SCH (10:52)
[2023-02-14] MEDS: diazePAM 5 MG TABLET PO SCH ×3 (10:53→23:15)
[2023-02-14] MEDS: TIMOLOL 0.5% OPHTHALMIC SOL 5 ML BOTTLE OU SCH ×2 (10:53→17:30)
[2023-02-14] MEDS: ALBUTEROL SO4 HFA INHALER IH PRN ×2 (11:04→23:06)
[2023-02-14] MEDS ORDERED: COLLOIDAL OATMEAL 1 BAR EACH TP PRN (11:37)
[2023-02-14 12:29] LABS: HEMATOCRIT 32.6 % (35.4-49); MCH 28.9 pg (25.7-33.7); MCHC 33.7 g/dl (32.0-35.9); MEAN CELL VOLUME 85.7 fl (80-96); MEAN PLT VOLUME 9.2 fl (7.5-11.1); PLATELET COUNT 170 10^3/uL (134-434); RBC 3.81 M/mm3 (4.00-5.60); RDW 15.5 % (11.9-15.9); WHITE BLOOD COUNT 3.2 K/mm3 (4.0-10.0)
[2023-02-14 12:34] LABS: ALBUMIN 3.2 g/dl (3.4-5.0); CALCIUM 8.4 mg/dL (8.5-10.1)
[2023-02-14 12:35] LABS: BLOOD UREA NITROGEN 11.2 mg/dL (7-18)
[2023-02-14 12:38] LABS: CREATININE 0.8 mg/dL (0.55-1.3)
[2023-02-14 12:40] LABS: BILIRUBIN,TOTAL 0.6 mg/dL (0.2-1); TOT PROT 6.2 g/dl (6.4-8.2)
[2023-02-14] MEDS: ACETAMINOPHEN 325 MG TABLET (FP) PO PRN ×2 (13:54→23:18)
[2023-02-14] MEDS: FLUTICASONE PROP 0.05% 16 GM NASAL SPRAY NS SCH (23:04)
[2023-02-14] MEDS: LATANOPROST 0.005% OPHTH SOLN 2.5ML BOTTLE OU SCH (23:07)
[2023-02-14] MEDS: hydrOXYzine PAMOATE 25 MG CAPSULE (FP) PO PRN (23:08)
[2023-02-14] MEDS: APIXABAN 5 MG TABLET PO SCH (23:09)
[2023-02-14] MEDS: THIAMINE HCL 100 MG TABLET (FP) PO SCH (23:09)
[2023-02-14] MEDS: OLANZapine 5 MG TABLET PO SCH (23:09)
[2023-02-14] MEDS: MELATONIN 5 MG TABLETS PO SCH (23:09)
[2023-02-14] MEDS: traZODone HCL 50 MG TABLET (FP) PO SCH (23:10)
[2023-02-14] MEDS: TAMSULOSIN HCL 0.4 MG CAP PO SCH (23:11)
[2023-02-15] MEDS: diazePAM 5 MG TABLET PO SCH ×4 (05:43→22:36)
[2023-02-15] MEDS: BUDESONIDE/FORMETEROL FUMARATE 80/4.5 mcg INHALER IH SCH ×2 (10:33→22:37)
[2023-02-15] MEDS: FLUTICASONE PROP 0.05% 16 GM NASAL SPRAY NS SCH (10:33)
[2023-02-15] MEDS: PRENATAL VITAMINS W/ FOLIC ACID TABLET (FP) PO SCH (10:33)
[2023-02-15] MEDS: NICOTINE 21 MG/24 HOURS TOPICAL PATCH TD SCH (10:34)
[2023-02-15] MEDS: FAMOTIDINE 20 MG TABLET PO SCH ×2 (10:34→22:36)
[2023-02-15] MEDS: CARVEDILOL 6.25 MG TABLET (FP) PO SCH ×2 (10:34→22:36)
[2023-02-15] MEDS: ALBUTEROL SO4 HFA INHALER IH PRN ×2 (10:34→22:43)
[2023-02-15] MEDS: LISINOPRIL 5 MG TABLET PO SCH (10:34)
[2023-02-15] MEDS: APIXABAN 5 MG TABLET PO SCH ×2 (10:35→22:36)
[2023-02-15] MEDS: TIMOLOL 0.5% OPHTHALMIC SOL 5 ML BOTTLE OU SCH ×2 (10:37→17:55)
[2023-02-15] MEDS: ACETAMINOPHEN 325 MG TABLET (FP) PO PRN ×2 (11:18→17:56)
[2023-02-15] MEDS: METHOCARBAMOL 500 MG TABLET PO PRN ×2 (11:20→22:38)
[2023-02-15] MEDS: NAPHAZOLINE/PHENIRAMINE OPHTHALMIC 15 ML BOTTLE OU PRN ×2 (11:20→22:42)
[2023-02-15] MEDS: MAGNESIUM HYDROX 2400MG/30ML ORAL SUSPENSION 30 ML CUP PO PRN (11:21)
[2023-02-15] MEDS: SENNOSIDES 8.6MG TABLET (FP) PO SCH ×2 (15:07→22:36)
[2023-02-15] MEDS: MELATONIN 5 MG TABLETS PO SCH (22:35)
[2023-02-15] MEDS: TAMSULOSIN HCL 0.4 MG CAP PO SCH (22:36)
[2023-02-15] MEDS: OLANZapine 5 MG TABLET PO SCH (22:36)
[2023-02-15] MEDS: THIAMINE HCL 100 MG TABLET (FP) PO SCH (22:36)
[2023-02-15] MEDS: traZODone HCL 50 MG TABLET (FP) PO SCH (22:36)
[2023-02-15] MEDS: LATANOPROST 0.005% OPHTH SOLN 2.5ML BOTTLE OU SCH (22:37)
[2023-02-15] MEDS: hydrOXYzine PAMOATE 25 MG CAPSULE (FP) PO PRN (22:49)
[2023-02-16] MEDS: diazePAM 5 MG TABLET PO SCH ×3 (05:09→23:10)
[2023-02-16] MEDS: BUDESONIDE/FORMETEROL FUMARATE 80/4.5 mcg INHALER IH SCH ×2 (10:45→23:10)
[2023-02-16] MEDS: LISINOPRIL 5 MG TABLET PO SCH (10:46)
[2023-02-16] MEDS: FLUTICASONE PROP 0.05% 16 GM NASAL SPRAY NS SCH (10:46)
[2023-02-16] MEDS: TIMOLOL 0.5% OPHTHALMIC SOL 5 ML BOTTLE OU SCH ×2 (10:46→17:55)
[2023-02-16] MEDS: FAMOTIDINE 20 MG TABLET PO SCH ×2 (10:46→23:10)
[2023-02-16] MEDS: APIXABAN 5 MG TABLET PO SCH ×2 (10:47→23:10)
[2023-02-16] MEDS: SENNOSIDES 8.6MG TABLET (FP) PO SCH ×2 (10:47→23:10)
[2023-02-16] MEDS: PRENATAL VITAMINS W/ FOLIC ACID TABLET (FP) PO SCH (10:47)
[2023-02-16] MEDS: NICOTINE 21 MG/24 HOURS TOPICAL PATCH TD SCH (10:48)
[2023-02-16] MEDS: CARVEDILOL 6.25 MG TABLET (FP) PO SCH ×2 (10:48→23:27)
[2023-02-16] MEDS: hydrOXYzine PAMOATE 25 MG CAPSULE (FP) PO PRN ×2 (10:52→18:21)
[2023-02-16] MEDS: ALBUTEROL SO4 HFA INHALER IH PRN ×2 (10:53→22:07)
[2023-02-16] MEDS: ACETAMINOPHEN 325 MG TABLET (FP) PO PRN (18:18)
[2023-02-16] MEDS: TAMSULOSIN HCL 0.4 MG CAP PO SCH (23:10)
[2023-02-16] MEDS: traZODone HCL 50 MG TABLET (FP) PO SCH (23:10)
[2023-02-16] MEDS: MELATONIN 5 MG TABLETS PO SCH (23:10)
[2023-02-16] MEDS: THIAMINE HCL 100 MG TABLET (FP) PO SCH (23:10)
[2023-02-16] MEDS: OLANZapine 5 MG TABLET PO SCH (23:10)
[2023-02-16] MEDS: LATANOPROST 0.005% OPHTH SOLN 2.5ML BOTTLE OU SCH (23:10)
[2023-02-16] MEDS: METHOCARBAMOL 500 MG TABLET PO PRN (23:23)
[2023-02-16] MEDS: NAPHAZOLINE/PHENIRAMINE OPHTHALMIC 15 ML BOTTLE OU PRN (23:27)
[2023-02-17] MEDS: diazePAM 5 MG TABLET PO SCH ×2 (06:02→18:05)
[2023-02-17] MEDS: CARVEDILOL 6.25 MG TABLET (FP) PO SCH ×2 (10:55→22:57)
[2023-02-17] MEDS: FLUTICASONE PROP 0.05% 16 GM NASAL SPRAY NS SCH (10:55)
[2023-02-17] MEDS: FAMOTIDINE 20 MG TABLET PO SCH ×2 (10:55→22:57)
[2023-02-17] MEDS: SENNOSIDES 8.6MG TABLET (FP) PO SCH (10:55)
[2023-02-17] MEDS: PRENATAL VITAMINS W/ FOLIC ACID TABLET (FP) PO SCH (10:55)
[2023-02-17] MEDS: APIXABAN 5 MG TABLET PO SCH ×2 (10:55→22:57)
[2023-02-17] MEDS: BUDESONIDE/FORMETEROL FUMARATE 80/4.5 mcg INHALER IH SCH ×2 (10:55→22:57)
[2023-02-17] MEDS: LISINOPRIL 5 MG TABLET PO SCH (10:56)
[2023-02-17] MEDS: NICOTINE 21 MG/24 HOURS TOPICAL PATCH TD SCH (10:56)
[2023-02-17] MEDS: METHOCARBAMOL 500 MG TABLET PO PRN ×2 (10:58→22:57)
[2023-02-17] MEDS: ALBUTEROL SO4 HFA INHALER IH PRN ×2 (10:59→22:57)
[2023-02-17] MEDS: TIMOLOL 0.5% OPHTHALMIC SOL 5 ML BOTTLE OU SCH ×2 (10:59→18:05)
[2023-02-17] MEDS ORDERED: BACITRACIN 0.9 GM PACKET TP ONE (12:30)
[2023-02-17] MEDS: LACTULOSE 20 GM/30 ML UDC (FOR ORAL USE ONLY) PO SCH ×3 (13:08→22:59)
[2023-02-17] MEDS: ACETAMINOPHEN 325 MG TABLET (FP) PO PRN (18:05)
[2023-02-17] MEDS: MAGNESIUM HYDROX 2400MG/30ML ORAL SUSPENSION 30 ML CUP PO PRN (18:28)
[2023-02-17] MEDS: hydrOXYzine PAMOATE 25 MG CAPSULE (FP) PO PRN (18:30)
[2023-02-17] MEDS: LIDOCAINE 5% TOPICAL PATCH TP SCH (18:55)
[2023-02-17] MEDS ORDERED: LIDOCAINE PATCH REMOVAL MC SCH (22:00)
[2023-02-17] MEDS: OLANZapine 5 MG TABLET PO SCH (22:50)
[2023-02-17] MEDS: THIAMINE HCL 100 MG TABLET (FP) PO SCH (22:56)
[2023-02-17] MEDS: traZODone HCL 50 MG TABLET (FP) PO SCH (22:56)
[2023-02-17] MEDS: MELATONIN 5 MG TABLETS PO SCH (22:56)
[2023-02-17] MEDS: TAMSULOSIN HCL 0.4 MG CAP PO SCH (22:56)
[2023-02-17] MEDS: NAPHAZOLINE/PHENIRAMINE OPHTHALMIC 15 ML BOTTLE OU PRN (22:58)
[2023-02-17] MEDS: LATANOPROST 0.005% OPHTH SOLN 2.5ML BOTTLE OU SCH (22:58)
[2023-02-18] MEDS ORDERED: diazePAM 5 MG TABLET PO ONE (06:00)
[2023-02-18] MEDS: LACTULOSE 20 GM/30 ML UDC (FOR ORAL USE ONLY) PO SCH ×2 (06:22→14:02)
[2023-02-18] MEDS: APIXABAN 5 MG TABLET PO SCH (09:52)
[2023-02-18] MEDS: LIDOCAINE 5% TOPICAL PATCH TP SCH (09:52)
[2023-02-18] MEDS: CARVEDILOL 6.25 MG TABLET (FP) PO SCH (09:52)
[2023-02-18] MEDS: FAMOTIDINE 20 MG TABLET PO SCH (09:52)
[2023-02-18] MEDS: LISINOPRIL 5 MG TABLET PO SCH (09:52)
[2023-02-18] MEDS: ALBUTEROL SO4 HFA INHALER IH PRN (09:53)
[2023-02-18] MEDS: BUDESONIDE/FORMETEROL FUMARATE 80/4.5 mcg INHALER IH SCH (09:53)
[2023-02-18] MEDS: TIMOLOL 0.5% OPHTHALMIC SOL 5 ML BOTTLE OU SCH (09:54)
[2023-02-18] MEDS: PRENATAL VITAMINS W/ FOLIC ACID TABLET (FP) PO SCH (09:55)
[2023-02-18] MEDS: NICOTINE 21 MG/24 HOURS TOPICAL PATCH TD SCH (09:55)
[2023-02-18] MEDS: FLUTICASONE PROP 0.05% 16 GM NASAL SPRAY NS SCH (09:56)
[2023-02-18 14:21] VITALS: PULSE 78; RESP 19; TEMP 97.3
[2023-02-18 14:22] VITALS: BP 80/50
== END 2023-02-18 14:21 | disposition home or self-care (01) | DRG 774 ==
LOC: YASAS 17:33 → Y3N 22:41
PROVIDERS: ADMIT Allergy & Immunology; ATTEND Surgery
PROC: HZ2ZZZZ Detoxification Services for Substance Abuse Treatment (ICD-10-PCS; principal; 2023-02-13)
DX: F10.230 Alcohol dependence with withdrawal, uncomplicated (principal); F14.20 Cocaine dependence, uncomplicated; F12.20 Cannabis dependence, uncomplicated; F17.210 Nicotine dependence, cigarettes, uncomplicated; F20.0 Paranoid schizophrenia; G47.00 Insomnia, unspecified; K21.9 Gastro-esophageal reflux disease without esophagitis; K59.00 Constipation, unspecified; N40.0 Benign prostatic hyperplasia without lower urinary tract symptoms; R79.89 Other specified abnormal findings of blood chemistry; Z99.89 Dependence on other enabling machines and devices; Z87.11 Personal history of peptic ulcer disease; Z88.0 Allergy status to penicillin; Z88.8 Allergy status to other drugs, medicaments and biological substances; Z91.410 Personal history of adult physical and sexual abuse
CPT/HCPCS: 36415; 80053; 82140; 85027; 86780; C9803-CS; Q0162; U0003; U0005

== ENCOUNTER 2023-02-18 14:40 | Inpatient (IN) | payer OTHER ==
[2023-02-18 15:10] VITALS: RESP 18; TEMP 97.3
[2023-02-18] MEDS ORDERED: BENZONATATE 200 MG CAPSULE PO PRN (18:04)
[2023-02-18] MEDS ORDERED: MAG HYDROX/AL HYDROX/SIMETH 30 ML UNIT-DOSE CUP PO PRN (18:04)
[2023-02-18] MEDS ORDERED: POLYETHYLENE GLYCOL (HEALTHYLAX) 3350 17 GM PACKET PO PRN (18:04)
[2023-02-18] MEDS ORDERED: ACETAMINOPHEN 325 MG TABLET (FP) PO PRN (18:04)
[2023-02-18] MEDS ORDERED: METHOCARBAMOL 500 MG TABLET PO PRN (18:04)
[2023-02-18] MEDS ORDERED: guaiFENesin 600 MG TABLET.ER (FP) PO PRN (18:04)
[2023-02-18] MEDS ORDERED: LOPERAMIDE HCL 2 MG CAPSULE PO PRN (18:04)
[2023-02-18] MEDS ORDERED: hydrOXYzine PAMOATE 25 MG CAPSULE (FP) PO PRN (18:04)
[2023-02-18] MEDS ORDERED: MAGNESIUM HYDROX 2400MG/30ML ORAL SUSPENSION 30 ML CUP PO PRN (18:04)
[2023-02-18] MEDS ORDERED: NICOTINE 10 MG CARTRIDGE (INHALER) IH PRN (18:04)
[2023-02-18] MEDS ORDERED: BENZOCAINE/MENTHOL (CHLORASEPTIC ) LOZENGE MM PRN (18:04)
[2023-02-18] MEDS ORDERED: NALOXONE HCL 0.4 MG/ML VIAL IVPUSH PRN (18:04)
[2023-02-18] MEDS ORDERED: NALOXONE HCL (KLOXXADO) 8 MG SPRAY NS PRN (18:04)
[2023-02-18] MEDS ORDERED: ALBUTEROL SO4 HFA INHALER IH PRN (18:05)
[2023-02-18] MEDS: PRENATAL VITAMINS W/ FOLIC ACID TABLET (FP) PO SCH (19:30)
[2023-02-18] MEDS: TIMOLOL 0.5% OPHTHALMIC SOL 5 ML BOTTLE OU SCH ×2 (19:45→21:55)
[2023-02-18] MEDS: BUDESONIDE/FORMETEROL FUMARATE 80/4.5 mcg INHALER IH SCH (21:53)
[2023-02-18] MEDS: CARVEDILOL 6.25 MG TABLET (FP) PO SCH (21:55)
[2023-02-18] MEDS: APIXABAN 5 MG TABLET PO SCH (21:55)
[2023-02-18] MEDS: FAMOTIDINE 20 MG TABLET PO SCH (21:55)
[2023-02-18] MEDS ORDERED: THIAMINE HCL 100 MG TABLET (FP) PO SCH (22:00)
[2023-02-18] MEDS ORDERED: LATANOPROST 0.005% OPHTH SOLN 2.5ML BOTTLE OU SCH (22:00)
[2023-02-18] MEDS ORDERED: MELATONIN 5 MG TABLETS PO SCH ×2 (22:00)
[2023-02-19] MEDS ORDERED: TAMSULOSIN HCL 0.4 MG CAP PO SCH (08:30)
[2023-02-19 09:35] VITALS: BP 138/79; PULSE 63
[2023-02-19] MEDS ORDERED: TIMOLOL 0.5% OPHTHALMIC SOL 5 ML BOTTLE OU SCH ×2 (10:00)
[2023-02-19] MEDS ORDERED: LISINOPRIL 5 MG TABLET PO SCH (10:00)
[2023-02-19] MEDS: CARVEDILOL 6.25 MG TABLET (FP) PO SCH (10:07)
[2023-02-19] MEDS: APIXABAN 5 MG TABLET PO SCH (10:07)
[2023-02-19] MEDS: PRENATAL VITAMINS W/ FOLIC ACID TABLET (FP) PO SCH (10:07)
[2023-02-19] MEDS: FAMOTIDINE 20 MG TABLET PO SCH (10:07)
[2023-02-19] MEDS: BUDESONIDE/FORMETEROL FUMARATE 80/4.5 mcg INHALER IH SCH (10:07)
[2023-02-19] MEDS: TIMOLOL 0.5% OPHTHALMIC SOL 5 ML BOTTLE OU SCH (10:08)
[2023-02-19] MEDS ORDERED: LIDOCAINE 5% TOPICAL PATCH TP SCH (11:15)
[2023-02-19] MEDS ORDERED: NAPHAZOLINE/PHENIRAMINE OPHTHALMIC 15 ML BOTTLE OU PRN (11:18)
[2023-02-19] MEDS ORDERED: TETRAHYDROZOLINE HCL EYE DROPS OU PRN (11:19)
[2023-02-19] MEDS ORDERED: LIDOCAINE PATCH REMOVAL MC SCH (22:00)
== END 2023-02-19 12:50 | disposition left against medical advice (07) | DRG 770 ==
LOC: YASAS 14:40 → Y3W 14:42
PROVIDERS: ADMIT Allergy & Immunology; ATTEND Allergy & Immunology
PROC: HZ42ZZZ Group Counseling for Substance Abuse Treatment, Cognitive-Behavioral (ICD-10-PCS; principal; 2023-02-18)
DX: F10.20 Alcohol dependence, uncomplicated (principal); F14.20 Cocaine dependence, uncomplicated; F17.210 Nicotine dependence, cigarettes, uncomplicated; F20.0 Paranoid schizophrenia; I10 Essential (primary) hypertension; J44.9 Chronic obstructive pulmonary disease, unspecified; K21.9 Gastro-esophageal reflux disease without esophagitis; H40.2231 Chronic angle-closure glaucoma, bilateral, mild stage; N40.0 Benign prostatic hyperplasia without lower urinary tract symptoms; F91.8 Other conduct disorders; Z91.199 Patient's noncompliance with other medical treatment and regimen due to unspecified reason; Z99.89 Dependence on other enabling machines and devices; Z88.0 Allergy status to penicillin; Z88.8 Allergy status to other drugs, medicaments and biological substances; Z86.718 Personal history of other venous thrombosis and embolism; Z79.01 Long term (current) use of anticoagulants

== ENCOUNTER 2023-03-21 21:43 | Inpatient (IN) | payer OTHER ==
[2023-03-21 22:48] VITALS: BMI 24.0
[2023-03-21] MEDS ORDERED: TETRAHYDROZOLINE HCL EYE DROPS OU PRN (22:53)
[2023-03-21] MEDS ORDERED: MELATONIN 5 MG TABLETS PO PRN (22:59)
[2023-03-21] MEDS ORDERED: guaiFENesin 200 MG/10 ML 10 ML UNIT-DOSE CUPS PO PRN (22:59)
[2023-03-21] MEDS ORDERED: POLYETHYLENE GLYCOL (HEALTHYLAX) 3350 17 GM PACKET PO PRN (22:59)
[2023-03-21] MEDS ORDERED: diphenhydrAMINE HCL 25 MG CAPSULE (FP) PO ONE (23:11)
[2023-03-21] MEDS ORDERED: SELENIUM SULFIDE 2.25% 180 ML SHAMPOO TP PRN (23:11)
[2023-03-21] MEDS ORDERED: COLLOIDAL OATMEAL 1 BAR EACH TP PRN (23:11)
[2023-03-21] MEDS ORDERED: MAGNESIUM HYDROX 2400MG/30ML ORAL SUSPENSION 30 ML CUP PO PRN (23:22)
[2023-03-21] MEDS ORDERED: ONDANSETRON *ODT* 4 MG TABLET SL PRN (23:22)
[2023-03-21] MEDS ORDERED: BENZONATATE 200 MG CAPSULE PO PRN (23:22)
[2023-03-21] MEDS ORDERED: MAG HYDROX/AL HYDROX/SIMETH 30 ML UNIT-DOSE CUP PO PRN (23:22)
[2023-03-21] MEDS ORDERED: BENZOCAINE/MENTHOL (CHLORASEPTIC ) LOZENGE MM PRN (23:22)
[2023-03-21] MEDS ORDERED: DICYCLOMINE HCL 10 MG CAPSULE PO PRN (23:22)
[2023-03-21] MEDS ORDERED: NICOTINE POLACRILEX 2 MG GUM BUC PRN (23:22)
[2023-03-21] MEDS ORDERED: LOPERAMIDE HCL 2 MG CAPSULE PO PRN (23:22)
[2023-03-21] MEDS ORDERED: P-EPHED 60MG/TRIPROLIDI 2.5MG TABLET PO PRN (23:22)
[2023-03-21] MEDS ORDERED: chlordiazePOXIDE HCL 25 MG CAPSULE PO PRN (23:25)
[2023-03-21] MEDS ORDERED: hydrOXYzine PAMOATE 25 MG CAPSULE (FP) PO PRN (23:26)
[2023-03-21] MEDS ORDERED: ALBUTEROL SO4 0.083% IH SOL 2.5 MG/3 ML VIAL.NEB. NEB PRN (23:29)
[2023-03-22] MEDS: chlordiazePOXIDE HCL 25 MG CAPSULE PO SCH ×5 (00:19→22:38)
[2023-03-22] MEDS: BUDESONIDE/FORMETEROL FUMARATE 80/4.5 mcg INHALER IH SCH ×2 (10:29→22:38)
[2023-03-22] MEDS: FAMOTIDINE 20 MG TABLET PO SCH ×2 (10:29→22:36)
[2023-03-22] MEDS: FOLIC ACID 1 MG TABLET (FP) PO SCH (10:29)
[2023-03-22] MEDS: PRENATAL VITAMINS W/ FOLIC ACID TABLET (FP) PO SCH (10:29)
[2023-03-22] MEDS: TIMOLOL 0.5% OPHTHALMIC SOL 5 ML BOTTLE OU SCH ×2 (10:30→18:00)
[2023-03-22 10:52] LABS: HEMATOCRIT 32.3 % (35.4-49); HEMOGLOBIN 11.3 GM/dL (11.7-16.9); MCH 29.5 pg (25.7-33.7); MCHC 34.9 g/dl (32.0-35.9); MEAN CELL VOLUME 84.4 fl (80-96); MEAN PLT VOLUME 9.6 fl (7.5-11.1); PLATELET COUNT 200 10^3/uL (134-434); RBC 3.82 M/mm3 (4.00-5.60); WHITE BLOOD COUNT 4.2 K/mm3 (4.0-10.0)
[2023-03-22 11:42] LABS: BLOOD UREA NITROGEN 10.5 mg/dL (7-18); CALCIUM 8.5 mg/dL (8.5-10.1)
[2023-03-22 11:43] LABS: ALBUMIN 3.3 g/dl (3.4-5.0)
[2023-03-22 11:47] LABS: BILIRUBIN,TOTAL 0.6 mg/dL (0.2-1); TOT PROT 6.6 g/dl (6.4-8.2)
[2023-03-22] MEDS: FLUTICASONE PROP 0.05% 16 GM NASAL SPRAY NS PRN (13:28)
[2023-03-22] MEDS: APIXABAN 5 MG TABLET PO SCH ×2 (14:24→22:36)
[2023-03-22] MEDS ORDERED: diphenhydrAMINE HCL 25 MG CAPSULE (FP) PO ONE (17:43)
[2023-03-22] MEDS: OLANZapine 5 MG TABLET PO SCH (22:36)
[2023-03-22] MEDS: traZODone HCL 100 MG TABLET (FP) PO SCH (22:36)
[2023-03-22] MEDS: TAMSULOSIN HCL 0.4 MG CAP PO SCH (22:36)
[2023-03-22] MEDS: THIAMINE HCL 100 MG TABLET (FP) PO SCH (22:37)
[2023-03-22] MEDS: LATANOPROST 0.005% OPHTH SOLN 2.5ML BOTTLE OU SCH (22:38)
[2023-03-22] MEDS: ALBUTEROL SO4 HFA INHALER IH PRN (22:49)
[2023-03-23] MEDS ORDERED: chlordiazePOXIDE HCL 25 MG CAPSULE PO SCH (05:00)
[2023-03-23] MEDS ORDERED: chlordiazePOXIDE HCL 10 MG CAPSULE PO SCH (05:13)
[2023-03-23] MEDS: chlordiazePOXIDE HCL 10 MG CAPSULE PO SCH ×4 (05:50→22:02)
[2023-03-23] MEDS: BUDESONIDE/FORMETEROL FUMARATE 80/4.5 mcg INHALER IH SCH ×2 (10:56→22:01)
[2023-03-23] MEDS: FAMOTIDINE 20 MG TABLET PO SCH ×2 (10:56→22:00)
[2023-03-23] MEDS: FOLIC ACID 1 MG TABLET (FP) PO SCH (10:56)
[2023-03-23] MEDS: APIXABAN 5 MG TABLET PO SCH ×2 (10:56→22:00)
[2023-03-23] MEDS: PRENATAL VITAMINS W/ FOLIC ACID TABLET (FP) PO SCH (10:56)
[2023-03-23] MEDS: TIMOLOL 0.5% OPHTHALMIC SOL 5 ML BOTTLE OU SCH ×2 (10:57→17:22)
[2023-03-23] MEDS: ACETAMINOPHEN 325 MG TABLET (FP) PO PRN (19:23)
[2023-03-23] MEDS: THIAMINE HCL 100 MG TABLET (FP) PO SCH (22:00)
[2023-03-23] MEDS: TAMSULOSIN HCL 0.4 MG CAP PO SCH (22:00)
[2023-03-23] MEDS: OLANZapine 5 MG TABLET PO SCH (22:02)
[2023-03-23] MEDS: LATANOPROST 0.005% OPHTH SOLN 2.5ML BOTTLE OU SCH (22:02)
[2023-03-23] MEDS: traZODone HCL 100 MG TABLET (FP) PO SCH (22:04)
[2023-03-23] MEDS: ALBUTEROL SO4 HFA INHALER IH PRN (22:04)
[2023-03-24] MEDS ORDERED: chlordiazePOXIDE HCL 10 MG CAPSULE PO PRN
[2023-03-24] MEDS: chlordiazePOXIDE HCL 10 MG CAPSULE PO SCH ×2 (05:47→17:06)
[2023-03-24] MEDS: APIXABAN 5 MG TABLET PO SCH ×2 (10:30→22:41)
[2023-03-24] MEDS: FOLIC ACID 1 MG TABLET (FP) PO SCH (10:30)
[2023-03-24] MEDS: FLUTICASONE PROP 0.05% 16 GM NASAL SPRAY NS PRN ×2 (10:30→22:46)
[2023-03-24] MEDS: FAMOTIDINE 20 MG TABLET PO SCH ×2 (10:30→22:40)
[2023-03-24] MEDS: PRENATAL VITAMINS W/ FOLIC ACID TABLET (FP) PO SCH (10:30)
[2023-03-24] MEDS: TIMOLOL 0.5% OPHTHALMIC SOL 5 ML BOTTLE OU SCH ×2 (10:31→17:53)
[2023-03-24] MEDS: ALBUTEROL SO4 HFA INHALER IH PRN (10:31)
[2023-03-24] MEDS: BUDESONIDE/FORMETEROL FUMARATE 80/4.5 mcg INHALER IH SCH ×2 (10:31→22:45)
[2023-03-24] MEDS: LIDOCAINE 5% TOPICAL PATCH TP SCH (12:12)
[2023-03-24] MEDS ORDERED: LIDOCAINE PATCH REMOVAL MC SCH (22:00)
[2023-03-24] MEDS: traZODone HCL 100 MG TABLET (FP) PO SCH (22:40)
[2023-03-24] MEDS: TAMSULOSIN HCL 0.4 MG CAP PO SCH (22:40)
[2023-03-24] MEDS: THIAMINE HCL 100 MG TABLET (FP) PO SCH (22:40)
[2023-03-24] MEDS: LATANOPROST 0.005% OPHTH SOLN 2.5ML BOTTLE OU SCH (22:42)
[2023-03-24] MEDS: ACETAMINOPHEN 325 MG TABLET (FP) PO PRN (22:42)
[2023-03-24] MEDS: OLANZapine 5 MG TABLET PO SCH (22:43)
[2023-03-25] MEDS ORDERED: chlordiazePOXIDE HCL 10 MG CAPSULE PO ONE (05:00)
[2023-03-25] MEDS: PRENATAL VITAMINS W/ FOLIC ACID TABLET (FP) PO SCH (11:17)
[2023-03-25] MEDS: LIDOCAINE 5% TOPICAL PATCH TP SCH (11:18)
[2023-03-25] MEDS: APIXABAN 5 MG TABLET PO SCH (11:18)
[2023-03-25] MEDS: FOLIC ACID 1 MG TABLET (FP) PO SCH (11:18)
[2023-03-25] MEDS: BUDESONIDE/FORMETEROL FUMARATE 80/4.5 mcg INHALER IH SCH (11:20)
[2023-03-25] MEDS: TIMOLOL 0.5% OPHTHALMIC SOL 5 ML BOTTLE OU SCH (11:20)
[2023-03-25] MEDS: FAMOTIDINE 20 MG TABLET PO SCH (11:44)
[2023-03-25 13:00] VITALS: BP 111/69; PULSE 69; RESP 17; TEMP 97.7
== END 2023-03-25 01:50 | disposition home or self-care (01) | DRG 774 ==
LOC: YASAS 21:43 → Y3N 23:18
PROVIDERS: ADMIT Allergy & Immunology; ATTEND Surgery
PROC: HZ2ZZZZ Detoxification Services for Substance Abuse Treatment (ICD-10-PCS; principal; 2023-03-21)
DX: F10.230 Alcohol dependence with withdrawal, uncomplicated (principal); F14.10 Cocaine abuse, uncomplicated; F12.20 Cannabis dependence, uncomplicated; F17.210 Nicotine dependence, cigarettes, uncomplicated; F20.0 Paranoid schizophrenia; H54.61 Unqualified visual loss, right eye, normal vision left eye; J44.9 Chronic obstructive pulmonary disease, unspecified; K21.9 Gastro-esophageal reflux disease without esophagitis; M54.50 Low back pain, unspecified; G89.29 Other chronic pain; L85.3 Xerosis cutis; N40.0 Benign prostatic hyperplasia without lower urinary tract symptoms; Z99.89 Dependence on other enabling machines and devices; Z88.0 Allergy status to penicillin; Z88.8 Allergy status to other drugs, medicaments and biological substances
CPT/HCPCS: 36415; 80053; 85027; 86780; C9803-CS; U0003; U0005

== ENCOUNTER 2023-04-25 15:33 | Inpatient (IN) | payer OTHER ==
[2023-04-25 16:01] VITALS: BMI 24.2
[2023-04-25] MEDS ORDERED: LORATADINE 10 MG TABLET PO PRN (17:50)
[2023-04-25] MEDS ORDERED: NALOXONE HCL (KLOXXADO) 8 MG SPRAY NS PRN (17:50)
[2023-04-25] MEDS ORDERED: POLYETHYLENE GLYCOL (HEALTHYLAX) 3350 17 GM PACKET PO PRN (17:50)
[2023-04-25] MEDS ORDERED: COLLOIDAL OATMEAL 1 BAR EACH TP PRN (18:10)
[2023-04-25] MEDS ORDERED: guaiFENesin 600 MG TABLET.ER (FP) PO PRN (18:21)
[2023-04-25] MEDS ORDERED: MAGNESIUM HYDROX 2400MG/30ML ORAL SUSPENSION 30 ML CUP PO PRN (18:21)
[2023-04-25] MEDS ORDERED: MAG HYDROX/AL HYDROX/SIMETH 30 ML UNIT-DOSE CUP PO PRN (18:21)
[2023-04-25] MEDS ORDERED: NICOTINE POLACRILEX 2 MG GUM BUC PRN (18:21)
[2023-04-25] MEDS ORDERED: NALOXONE HCL 0.4 MG/ML VIAL IM PRN (18:21)
[2023-04-25] MEDS ORDERED: LOPERAMIDE HCL 2 MG CAPSULE PO PRN (18:21)
[2023-04-25] MEDS ORDERED: DICYCLOMINE HCL 10 MG CAPSULE PO PRN (18:21)
[2023-04-25] MEDS ORDERED: P-EPHED 60MG/TRIPROLIDI 2.5MG TABLET PO PRN (18:21)
[2023-04-25] MEDS ORDERED: AMMONIUM LACTATE 12% LOTION 225 GM BOTTLE TP PRN (18:21)
[2023-04-25] MEDS ORDERED: BENZOCAINE/MENTHOL (CHLORASEPTIC ) LOZENGE MM PRN (18:21)
[2023-04-25] MEDS ORDERED: BENZONATATE 200 MG CAPSULE PO PRN (18:21)
[2023-04-25] MEDS ORDERED: chlordiazePOXIDE HCL 25 MG CAPSULE PO PRN (18:24)
[2023-04-25] MEDS: ONDANSETRON *ODT* 4 MG TABLET SL PRN (19:40)
[2023-04-25] MEDS ORDERED: ALBUTEROL SO4 2.5/IPRATROPIUM 0.5 INH SOL 3 ML VIAL.NEB. NEB ONE (20:00)
[2023-04-25] MEDS ORDERED: diphenhydrAMINE HCL 25 MG CAPSULE (FP) PO PRN (22:00)
[2023-04-25] MEDS ORDERED: MELATONIN 5 MG TABLETS PO SCH (22:00)
[2023-04-25] MEDS: traZODone HCL 100 MG TABLET (FP) PO SCH (22:33)
[2023-04-25] MEDS: THIAMINE HCL 100 MG TABLET (FP) PO SCH (22:34)
[2023-04-25] MEDS: chlordiazePOXIDE HCL 25 MG CAPSULE PO SCH (22:34)
[2023-04-25] MEDS: FAMOTIDINE 20 MG TABLET PO SCH (22:34)
[2023-04-25] MEDS: BUDESONIDE/FORMETEROL FUMARATE 80/4.5 mcg INHALER IH SCH (22:36)
[2023-04-25] MEDS: LATANOPROST 0.005% OPHTH SOLN 2.5ML BOTTLE OU SCH ×2 (23:11→23:47)
[2023-04-26] MEDS: chlordiazePOXIDE HCL 25 MG CAPSULE PO SCH ×4 (06:00→22:23)
[2023-04-26] MEDS: TAMSULOSIN HCL 0.4 MG CAP PO SCH (08:44)
[2023-04-26] MEDS: BUDESONIDE/FORMETEROL FUMARATE 80/4.5 mcg INHALER IH SCH ×2 (10:15→22:24)
[2023-04-26] MEDS: LISINOPRIL 5 MG TABLET PO SCH (10:15)
[2023-04-26] MEDS: FAMOTIDINE 20 MG TABLET PO SCH ×2 (10:16→22:23)
[2023-04-26] MEDS: PRENATAL VITAMINS W/ FOLIC ACID TABLET (FP) PO SCH (10:16)
[2023-04-26] MEDS: NICOTINE 21 MG/24 HOURS TOPICAL PATCH TD SCH (10:18)
[2023-04-26] MEDS: ALBUTEROL SO4 HFA INHALER IH PRN ×2 (10:26→22:24)
[2023-04-26] MEDS: ACETAMINOPHEN 325 MG TABLET (FP) PO PRN (10:28)
[2023-04-26] MEDS: FOLIC ACID 1 MG TABLET (FP) PO SCH (10:45)
[2023-04-26] MEDS: TIMOLOL 0.5% OPHTHALMIC SOL 5 ML BOTTLE OU SCH ×2 (10:46→18:13)
[2023-04-26] MEDS: traZODone HCL 100 MG TABLET (FP) PO SCH (22:23)
[2023-04-26] MEDS: THIAMINE HCL 100 MG TABLET (FP) PO SCH (22:25)
[2023-04-26] MEDS: LATANOPROST 0.005% OPHTH SOLN 2.5ML BOTTLE OU SCH (22:25)
[2023-04-26] MEDS: OLANZapine 5 MG TABLET PO SCH (22:53)
[2023-04-26] MEDS: SODIUM CHLORIDE NASAL SPRAY 44 ML BOTTLE NS SCH (22:55)
[2023-04-27] MEDS: chlordiazePOXIDE HCL 25 MG CAPSULE PO SCH ×4 (06:27→22:49)
[2023-04-27] MEDS: TAMSULOSIN HCL 0.4 MG CAP PO SCH (08:24)
[2023-04-27] MEDS: LISINOPRIL 5 MG TABLET PO SCH (10:16)
[2023-04-27] MEDS: PRENATAL VITAMINS W/ FOLIC ACID TABLET (FP) PO SCH (10:18)
[2023-04-27] MEDS: FOLIC ACID 1 MG TABLET (FP) PO SCH (10:18)
[2023-04-27] MEDS: FAMOTIDINE 20 MG TABLET PO SCH ×2 (10:18→22:48)
[2023-04-27] MEDS: NICOTINE 21 MG/24 HOURS TOPICAL PATCH TD SCH (10:19)
[2023-04-27] MEDS: TIMOLOL 0.5% OPHTHALMIC SOL 5 ML BOTTLE OU SCH ×2 (10:19→17:53)
[2023-04-27] MEDS: ALBUTEROL SO4 HFA INHALER IH PRN ×2 (10:19→18:08)
[2023-04-27] MEDS: BUDESONIDE/FORMETEROL FUMARATE 80/4.5 mcg INHALER IH SCH ×2 (10:19→22:50)
[2023-04-27] MEDS: ACETAMINOPHEN 325 MG TABLET (FP) PO PRN (10:19)
[2023-04-27] MEDS: SODIUM CHLORIDE NASAL SPRAY 44 ML BOTTLE NS SCH ×2 (10:40→22:49)
[2023-04-27] MEDS: guaiFENesin 200 MG/10 ML 10 ML UNIT-DOSE CUPS PO PRN (10:43)
[2023-04-27] MEDS: OLANZapine 5 MG TABLET PO SCH (22:48)
[2023-04-27] MEDS: traZODone HCL 100 MG TABLET (FP) PO SCH (22:48)
[2023-04-27] MEDS: THIAMINE HCL 100 MG TABLET (FP) PO SCH (22:48)
[2023-04-27] MEDS: LATANOPROST 0.005% OPHTH SOLN 2.5ML BOTTLE OU SCH (22:49)
[2023-04-28] MEDS ORDERED: chlordiazePOXIDE HCL 10 MG CAPSULE PO PRN
[2023-04-28] MEDS: chlordiazePOXIDE HCL 10 MG CAPSULE PO SCH ×4 (05:49→22:51)
[2023-04-28] MEDS: ACETAMINOPHEN 325 MG TABLET (FP) PO PRN (05:51)
[2023-04-28] MEDS: guaiFENesin 200 MG/10 ML 10 ML UNIT-DOSE CUPS PO PRN ×2 (05:51→16:29)
[2023-04-28] MEDS: TAMSULOSIN HCL 0.4 MG CAP PO SCH (08:39)
[2023-04-28] MEDS: FAMOTIDINE 20 MG TABLET PO SCH ×2 (10:25→22:51)
[2023-04-28] MEDS: PRENATAL VITAMINS W/ FOLIC ACID TABLET (FP) PO SCH (10:25)
[2023-04-28] MEDS: ALBUTEROL SO4 HFA INHALER IH PRN (10:26)
[2023-04-28] MEDS: BUDESONIDE/FORMETEROL FUMARATE 80/4.5 mcg INHALER IH SCH ×2 (10:26→22:54)
[2023-04-28] MEDS: SODIUM CHLORIDE NASAL SPRAY 44 ML BOTTLE NS SCH ×2 (10:26→22:52)
[2023-04-28] MEDS: TIMOLOL 0.5% OPHTHALMIC SOL 5 ML BOTTLE OU SCH ×2 (10:26→17:12)
[2023-04-28] MEDS: FOLIC ACID 1 MG TABLET (FP) PO SCH (10:26)
[2023-04-28] MEDS: NICOTINE 21 MG/24 HOURS TOPICAL PATCH TD SCH (10:27)
[2023-04-28] MEDS: TETRAHYDROZOLINE HCL EYE DROPS OU PRN (10:31)
[2023-04-28] MEDS: traZODone HCL 100 MG TABLET (FP) PO SCH (22:51)
[2023-04-28] MEDS: hydrOXYzine PAMOATE 25 MG CAPSULE (FP) PO PRN (22:51)
[2023-04-28] MEDS: THIAMINE HCL 100 MG TABLET (FP) PO SCH (22:51)
[2023-04-28] MEDS: OLANZapine 5 MG TABLET PO SCH (22:52)
[2023-04-28] MEDS: LATANOPROST 0.005% OPHTH SOLN 2.5ML BOTTLE OU SCH (22:53)
[2023-04-28] MEDS: SENNOSIDES 8.6MG TABLET (FP) PO SCH (22:53)
[2023-04-29] MEDS: chlordiazePOXIDE HCL 10 MG CAPSULE PO SCH ×2 (05:51→17:55)
[2023-04-29] MEDS: TAMSULOSIN HCL 0.4 MG CAP PO SCH (09:15)
[2023-04-29] MEDS: FAMOTIDINE 20 MG TABLET PO SCH ×2 (09:29→22:40)
[2023-04-29] MEDS: SODIUM CHLORIDE NASAL SPRAY 44 ML BOTTLE NS SCH ×2 (09:29→22:40)
[2023-04-29] MEDS: FOLIC ACID 1 MG TABLET (FP) PO SCH (09:29)
[2023-04-29] MEDS: PRENATAL VITAMINS W/ FOLIC ACID TABLET (FP) PO SCH (09:29)
[2023-04-29] MEDS: NICOTINE 21 MG/24 HOURS TOPICAL PATCH TD SCH (09:29)
[2023-04-29] MEDS: BUDESONIDE/FORMETEROL FUMARATE 80/4.5 mcg INHALER IH SCH ×2 (09:30→22:40)
[2023-04-29] MEDS: TETRAHYDROZOLINE HCL EYE DROPS OU PRN ×2 (09:32→17:55)
[2023-04-29] MEDS: TIMOLOL 0.5% OPHTHALMIC SOL 5 ML BOTTLE OU SCH ×2 (09:32→17:55)
[2023-04-29] MEDS: ALBUTEROL SO4 HFA INHALER IH PRN (09:40)
[2023-04-29] MEDS: hydrOXYzine PAMOATE 25 MG CAPSULE (FP) PO PRN (17:55)
[2023-04-29] MEDS: ACETAMINOPHEN 325 MG TABLET (FP) PO PRN ×2 (17:56→23:06)
[2023-04-29] MEDS: ONDANSETRON *ODT* 4 MG TABLET SL PRN (21:52)
[2023-04-29] MEDS: traZODone HCL 100 MG TABLET (FP) PO SCH (22:40)
[2023-04-29] MEDS: SENNOSIDES 8.6MG TABLET (FP) PO SCH (22:40)
[2023-04-29] MEDS: LATANOPROST 0.005% OPHTH SOLN 2.5ML BOTTLE OU SCH (22:40)
[2023-04-29] MEDS: THIAMINE HCL 100 MG TABLET (FP) PO SCH (22:40)
[2023-04-29] MEDS: OLANZapine 5 MG TABLET PO SCH (22:40)
[2023-04-30] MEDS ORDERED: chlordiazePOXIDE HCL 10 MG CAPSULE PO ONE (05:00)
[2023-04-30] MEDS: ACETAMINOPHEN 325 MG TABLET (FP) PO PRN (07:24)
[2023-04-30] MEDS: TAMSULOSIN HCL 0.4 MG CAP PO SCH (09:15)
[2023-04-30 09:28] VITALS: BP 134/73; PULSE 80; RESP 18; TEMP 96.9
[2023-04-30] MEDS: FOLIC ACID 1 MG TABLET (FP) PO SCH (09:32)
[2023-04-30] MEDS: FAMOTIDINE 20 MG TABLET PO SCH (09:32)
[2023-04-30] MEDS: BUDESONIDE/FORMETEROL FUMARATE 80/4.5 mcg INHALER IH SCH (09:32)
[2023-04-30] MEDS: PRENATAL VITAMINS W/ FOLIC ACID TABLET (FP) PO SCH (09:32)
[2023-04-30] MEDS: SODIUM CHLORIDE NASAL SPRAY 44 ML BOTTLE NS SCH (09:32)
[2023-04-30] MEDS: TETRAHYDROZOLINE HCL EYE DROPS OU PRN (09:33)
[2023-04-30] MEDS: TIMOLOL 0.5% OPHTHALMIC SOL 5 ML BOTTLE OU SCH (09:33)
[2023-04-30] MEDS: NICOTINE 21 MG/24 HOURS TOPICAL PATCH TD SCH (09:34)
[2023-04-30] MEDS: ALBUTEROL SO4 HFA INHALER IH PRN (09:34)
== END 2023-04-30 11:28 | disposition home or self-care (01) | DRG 774 ==
LOC: YASAS 15:33 → Y6N 19:00
PROVIDERS: ADMIT Allergy & Immunology; ATTEND Surgery
PROC: HZ2ZZZZ Detoxification Services for Substance Abuse Treatment (ICD-10-PCS; principal; 2023-04-25)
DX: F10.230 Alcohol dependence with withdrawal, uncomplicated (principal); F14.20 Cocaine dependence, uncomplicated; F12.20 Cannabis dependence, uncomplicated; F17.210 Nicotine dependence, cigarettes, uncomplicated; F20.0 Paranoid schizophrenia; F19.280 Other psychoactive substance dependence with psychoactive substance-induced anxiety disorder; F19.282 Other psychoactive substance dependence with psychoactive substance-induced sleep disorder; H54.61 Unqualified visual loss, right eye, normal vision left eye; J43.9 Emphysema, unspecified; J45.20 Mild intermittent asthma, uncomplicated; K21.9 Gastro-esophageal reflux disease without esophagitis; K59.00 Constipation, unspecified; N40.0 Benign prostatic hyperplasia without lower urinary tract symptoms; Z99.89 Dependence on other enabling machines and devices; Z88.0 Allergy status to penicillin; Z88.8 Allergy status to other drugs, medicaments and biological substances; Z91.013 Allergy to seafood
CPT/HCPCS: 26055; C9803-CS; Q0162; U0003; U0005

== ENCOUNTER 2023-07-06 15:20 | Inpatient (IN) | payer OTHER ==
[2023-07-06 16:49] VITALS: BMI 23.4
[2023-07-06] MEDS ORDERED: NALOXONE HCL 0.4 MG/ML VIAL IM PRN (18:16)
[2023-07-06] MEDS ORDERED: POLYETHYLENE GLYCOL (HEALTHYLAX) 3350 17 GM PACKET PO PRN (18:16)
[2023-07-06] MEDS ORDERED: NALOXONE HCL (KLOXXADO) 8 MG SPRAY NS PRN (18:16)
[2023-07-06] MEDS ORDERED: LOPERAMIDE HCL 2 MG CAPSULE PO PRN (18:16)
[2023-07-06] MEDS ORDERED: MAGNESIUM HYDROX 2400MG/30ML ORAL SUSPENSION 30 ML CUP PO PRN (18:16)
[2023-07-06] MEDS ORDERED: DICYCLOMINE HCL 10 MG CAPSULE PO PRN (18:16)
[2023-07-06] MEDS ORDERED: MAG HYDROX/AL HYDROX/SIMETH 30 ML UNIT-DOSE CUP PO PRN (18:16)
[2023-07-06] MEDS ORDERED: guaiFENesin 600 MG TABLET.ER (FP) PO PRN (18:16)
[2023-07-06] MEDS ORDERED: BENZONATATE 200 MG CAPSULE PO PRN (18:16)
[2023-07-06] MEDS ORDERED: ONDANSETRON *ODT* 4 MG TABLET SL PRN (18:16)
[2023-07-06] MEDS ORDERED: NICOTINE POLACRILEX 2 MG GUM BUC PRN (18:16)
[2023-07-06] MEDS ORDERED: LORazepam 1 MG TABLET PO PRN (18:16)
[2023-07-06] MEDS ORDERED: BENZOCAINE/MENTHOL (CHLORASEPTIC ) LOZENGE MM PRN (18:16)
[2023-07-06] MEDS ORDERED: AMMONIUM LACTATE 12% LOTION 225 GM BOTTLE TP PRN (18:16)
[2023-07-06] MEDS ORDERED: MELATONIN 5 MG TABLETS PO SCH (22:00)
[2023-07-06] MEDS: THIAMINE HCL 100 MG TABLET (FP) PO SCH (23:42)
[2023-07-06] MEDS: LORazepam 2 MG TABLET PO SCH (23:42)
[2023-07-07] MEDS: LORazepam 2 MG TABLET PO SCH ×4 (06:00→23:24)
[2023-07-07] MEDS ORDERED: HYDROCORTISONE 1% TOPICAL LOTION 118 ML BOTTLE TP PRN (08:54)
[2023-07-07] MEDS: PRENATAL VITAMINS W/ FOLIC ACID TABLET (FP) PO SCH (10:44)
[2023-07-07] MEDS: NICOTINE 21 MG/24 HOURS TOPICAL PATCH TD SCH (10:47)
[2023-07-07] MEDS: diphenhydrAMINE HCL 25 MG CAPSULE (FP) PO PRN (12:34)
[2023-07-07] MEDS: ACETAMINOPHEN 325 MG TABLET (FP) PO PRN (17:56)
[2023-07-07] MEDS: ALBUTEROL SO4 HFA INHALER IH PRN (19:03)
[2023-07-07] MEDS: TIMOLOL 0.5% OPHTHALMIC SOL 5 ML BOTTLE OU SCH (22:55)
[2023-07-07] MEDS: LATANOPROST 0.005% OPHTH SOLN 2.5ML BOTTLE OU SCH (22:55)
[2023-07-07] MEDS: traZODone HCL 100 MG TABLET (FP) PO SCH (22:55)
[2023-07-07] MEDS: THIAMINE HCL 100 MG TABLET (FP) PO SCH (22:55)
[2023-07-07] MEDS: BUDESONIDE/FORMETEROL FUMARATE 80/4.5 mcg INHALER IH SCH (23:22)
[2023-07-07] MEDS: OLANZapine 5 MG TABLET PO SCH (23:24)
[2023-07-08] MEDS: LORazepam 1 MG TABLET PO SCH ×4 (06:00→22:29)
[2023-07-08] MEDS: TAMSULOSIN HCL 0.4 MG CAP PO SCH (08:23)
[2023-07-08] MEDS ORDERED: COLLOIDAL OATMEAL 1 BAR EACH TP PRN (09:54)
[2023-07-08] MEDS: LISINOPRIL 5 MG TABLET PO SCH (10:37)
[2023-07-08] MEDS: PRENATAL VITAMINS W/ FOLIC ACID TABLET (FP) PO SCH (10:37)
[2023-07-08] MEDS: TIMOLOL 0.5% OPHTHALMIC SOL 5 ML BOTTLE OU SCH ×2 (10:38→22:31)
[2023-07-08] MEDS: BUDESONIDE/FORMETEROL FUMARATE 80/4.5 mcg INHALER IH SCH ×2 (10:38→22:31)
[2023-07-08] MEDS: NICOTINE 21 MG/24 HOURS TOPICAL PATCH TD SCH (10:39)
[2023-07-08] MEDS: ALBUTEROL SO4 HFA INHALER IH PRN (10:40)
[2023-07-08] MEDS: diphenhydrAMINE HCL 25 MG CAPSULE (FP) PO PRN (19:20)
[2023-07-08] MEDS: traZODone HCL 100 MG TABLET (FP) PO SCH (22:30)
[2023-07-08] MEDS: THIAMINE HCL 100 MG TABLET (FP) PO SCH (22:32)
[2023-07-08] MEDS: LATANOPROST 0.005% OPHTH SOLN 2.5ML BOTTLE OU SCH (22:33)
[2023-07-08] MEDS: OLANZapine 5 MG TABLET PO SCH (23:26)
[2023-07-09] MEDS ORDERED: LORazepam 0.5 MG TABLET PO PRN
[2023-07-09] MEDS: LORazepam 0.5 MG TABLET PO SCH ×4 (05:58→22:34)
[2023-07-09] MEDS: ACETAMINOPHEN 325 MG TABLET (FP) PO PRN ×2 (06:12→22:33)
[2023-07-09] MEDS: diphenhydrAMINE HCL 25 MG CAPSULE (FP) PO PRN (06:12)
[2023-07-09] MEDS: TAMSULOSIN HCL 0.4 MG CAP PO SCH (09:22)
[2023-07-09] MEDS: LISINOPRIL 5 MG TABLET PO SCH (10:41)
[2023-07-09] MEDS: PRENATAL VITAMINS W/ FOLIC ACID TABLET (FP) PO SCH (10:42)
[2023-07-09] MEDS: BUDESONIDE/FORMETEROL FUMARATE 80/4.5 mcg INHALER IH SCH ×2 (10:42→22:39)
[2023-07-09] MEDS: NICOTINE 21 MG/24 HOURS TOPICAL PATCH TD SCH (10:42)
[2023-07-09] MEDS: TIMOLOL 0.5% OPHTHALMIC SOL 5 ML BOTTLE OU SCH ×2 (10:43→22:35)
[2023-07-09] MEDS: FAMOTIDINE 20 MG TABLET PO SCH (15:42)
[2023-07-09] MEDS ORDERED: TETRAHYDROZOLINE HCL EYE DROPS OU PRN (18:40)
[2023-07-09] MEDS ORDERED: ARTIFICIAL TEARS (POLYVINYL ALCOHOL) OPTH DROPS OU PRN (18:41)
[2023-07-09] MEDS: OLANZapine 5 MG TABLET PO SCH (22:34)
[2023-07-09] MEDS: traZODone HCL 100 MG TABLET (FP) PO SCH (22:34)
[2023-07-09] MEDS: THIAMINE HCL 100 MG TABLET (FP) PO SCH (22:34)
[2023-07-09] MEDS: FLUTICASONE PROP 0.05% 16 GM NASAL SPRAY NS SCH (22:36)
[2023-07-09] MEDS: LATANOPROST 0.005% OPHTH SOLN 2.5ML BOTTLE OU SCH (22:36)
[2023-07-10] MEDS ORDERED: LORazepam 0.5 MG TABLET PO ONE (05:00)
[2023-07-10] MEDS: TAMSULOSIN HCL 0.4 MG CAP PO SCH (08:51)
[2023-07-10] MEDS: PRENATAL VITAMINS W/ FOLIC ACID TABLET (FP) PO SCH (09:10)
[2023-07-10] MEDS: FLUTICASONE PROP 0.05% 16 GM NASAL SPRAY NS SCH (09:10)
[2023-07-10] MEDS: FAMOTIDINE 20 MG TABLET PO SCH (09:10)
[2023-07-10] MEDS: NICOTINE 21 MG/24 HOURS TOPICAL PATCH TD SCH (09:10)
[2023-07-10] MEDS: BUDESONIDE/FORMETEROL FUMARATE 80/4.5 mcg INHALER IH SCH (09:11)
[2023-07-10] MEDS: TIMOLOL 0.5% OPHTHALMIC SOL 5 ML BOTTLE OU SCH (09:11)
[2023-07-10 09:29] VITALS: BP 108/51; PULSE 70; RESP 18; TEMP 98.2
== END 2023-07-10 11:40 | disposition home or self-care (01) | DRG 774 ==
LOC: YASAS 15:20 → Y6N 20:11
PROVIDERS: ADMIT Allergy & Immunology; ATTEND Allergy & Immunology
PROC: HZ2ZZZZ Detoxification Services for Substance Abuse Treatment (ICD-10-PCS; principal; 2023-07-06)
DX: F10.230 Alcohol dependence with withdrawal, uncomplicated (principal); F14.20 Cocaine dependence, uncomplicated; F12.20 Cannabis dependence, uncomplicated; F17.213 Nicotine dependence, cigarettes, with withdrawal; F20.0 Paranoid schizophrenia; F19.282 Other psychoactive substance dependence with psychoactive substance-induced sleep disorder; F19.24 Other psychoactive substance dependence with psychoactive substance-induced mood disorder; H40.2231 Chronic angle-closure glaucoma, bilateral, mild stage; I10 Essential (primary) hypertension; J43.0 Unilateral pulmonary emphysema [MacLeod's syndrome]; J45.20 Mild intermittent asthma, uncomplicated; K21.9 Gastro-esophageal reflux disease without esophagitis; Z99.89 Dependence on other enabling machines and devices; Z88.1 Allergy status to other antibiotic agents; Z88.8 Allergy status to other drugs, medicaments and biological substances; Z87.11 Personal history of peptic ulcer disease; Z86.69 Personal history of other diseases of the nervous system and sense organs; Z98.890 Other specified postprocedural states
CPT/HCPCS: 87635

== ENCOUNTER 2023-08-02 12:24 | Inpatient (IN) | payer OTHER ==
[2023-08-02 12:48] VITALS: BMI 23.9
[2023-08-02] MEDS ORDERED: ALBUTEROL SO4 HFA INHALER IH PRN (16:15)
[2023-08-02] MEDS ORDERED: NICOTINE POLACRILEX 2 MG GUM BUC PRN (16:45)
[2023-08-02] MEDS ORDERED: ONDANSETRON *ODT* 4 MG TABLET SL PRN (16:45)
[2023-08-02] MEDS ORDERED: BENZOCAINE/MENTHOL (CHLORASEPTIC ) LOZENGE MM PRN (16:45)
[2023-08-02] MEDS ORDERED: MAG HYDROX/AL HYDROX/SIMETH 30 ML UNIT-DOSE CUP PO PRN (16:45)
[2023-08-02] MEDS ORDERED: LOPERAMIDE HCL 2 MG CAPSULE PO PRN (16:45)
[2023-08-02] MEDS ORDERED: DICYCLOMINE HCL 10 MG CAPSULE PO PRN (16:45)
[2023-08-02] MEDS ORDERED: guaiFENesin 600 MG TABLET.ER (FP) PO PRN (16:45)
[2023-08-02] MEDS ORDERED: POLYETHYLENE GLYCOL (HEALTHYLAX) 3350 17 GM PACKET PO PRN (16:45)
[2023-08-02] MEDS ORDERED: BENZONATATE 200 MG CAPSULE PO PRN (16:45)
[2023-08-02] MEDS ORDERED: COLLOIDAL OATMEAL 1 BAR EACH TP PRN (16:45)
[2023-08-02] MEDS: P-EPHED 60MG/TRIPROLIDI 2.5MG TABLET PO PRN (17:54)
[2023-08-02] MEDS: FAMOTIDINE 20 MG TABLET PO SCH (17:54)
[2023-08-02] MEDS: hydrOXYzine PAMOATE 25 MG CAPSULE (FP) PO PRN (17:54)
[2023-08-02] MEDS: MAGNESIUM HYDROX 2400MG/30ML ORAL SUSPENSION 30 ML CUP PO PRN (17:54)
[2023-08-02] MEDS: ALBUTEROL SO4 2.5/IPRATROPIUM 0.5 INH SOL 3 ML VIAL.NEB. NEB SCH ×2 (17:55→23:08)
[2023-08-02] MEDS: TIMOLOL 0.5% OPHTHALMIC SOL 5 ML BOTTLE OU SCH (20:32)
[2023-08-02] MEDS ORDERED: traZODone HCL 50 MG TABLET (FP) PO ONE (22:00)
[2023-08-02] MEDS: MELATONIN 5 MG TABLETS PO SCH (23:02)
[2023-08-02] MEDS: BUDESONIDE/FORMETEROL FUMARATE 160/4.5 mcg INHALER IH SCH (23:03)
[2023-08-02] MEDS: THIAMINE HCL 100 MG TABLET (FP) PO SCH (23:03)
[2023-08-02] MEDS: LATANOPROST 0.005% OPHTH SOLN 2.5ML BOTTLE OU SCH (23:08)
[2023-08-03] MEDS: PRENATAL VITAMINS W/ FOLIC ACID TABLET (FP) PO SCH (11:09)
[2023-08-03] MEDS: ALBUTEROL SO4 2.5/IPRATROPIUM 0.5 INH SOL 3 ML VIAL.NEB. NEB SCH ×2 (11:09→23:45)
[2023-08-03] MEDS: TAMSULOSIN HCL 0.4 MG CAP PO SCH (11:10)
[2023-08-03] MEDS: FAMOTIDINE 20 MG TABLET PO SCH (11:11)
[2023-08-03] MEDS: BUDESONIDE/FORMETEROL FUMARATE 160/4.5 mcg INHALER IH SCH ×2 (11:12→23:00)
[2023-08-03] MEDS: diazePAM 5 MG TABLET PO SCH ×3 (11:13→22:59)
[2023-08-03] MEDS: TIMOLOL 0.5% OPHTHALMIC SOL 5 ML BOTTLE OU SCH ×2 (17:39→23:46)
[2023-08-03] MEDS: ACETAMINOPHEN 325 MG TABLET (FP) PO PRN (18:11)
[2023-08-03] MEDS: hydrOXYzine PAMOATE 25 MG CAPSULE (FP) PO PRN (20:26)
[2023-08-03] MEDS: THIAMINE HCL 100 MG TABLET (FP) PO SCH (22:58)
[2023-08-03] MEDS: LATANOPROST 0.005% OPHTH SOLN 2.5ML BOTTLE OU SCH (22:59)
[2023-08-03] MEDS: OLANZapine 5 MG TABLET PO SCH (22:59)
[2023-08-03] MEDS: traZODone HCL 50 MG TABLET (FP) PO SCH (22:59)
[2023-08-03] MEDS: MELATONIN 5 MG TABLETS PO SCH (22:59)
[2023-08-04] MEDS: diazePAM 5 MG TABLET PO SCH ×4 (05:50→23:20)
[2023-08-04] MEDS: TIMOLOL 0.5% OPHTHALMIC SOL 5 ML BOTTLE OU SCH ×2 (08:57→18:31)
[2023-08-04] MEDS: TAMSULOSIN HCL 0.4 MG CAP PO SCH (08:57)
[2023-08-04] MEDS: FAMOTIDINE 20 MG TABLET PO SCH (10:53)
[2023-08-04] MEDS: PRENATAL VITAMINS W/ FOLIC ACID TABLET (FP) PO SCH (10:53)
[2023-08-04] MEDS: BUDESONIDE/FORMETEROL FUMARATE 160/4.5 mcg INHALER IH SCH ×2 (10:53→23:20)
[2023-08-04] MEDS ORDERED: BISACODYL 5 MG TABLET.DR (FP) PO ONE (11:00)
[2023-08-04] MEDS: hydrOXYzine PAMOATE 25 MG CAPSULE (FP) PO PRN (14:33)
[2023-08-04] MEDS: ACETAMINOPHEN 325 MG TABLET (FP) PO PRN ×2 (14:34→23:25)
[2023-08-04] MEDS: P-EPHED 60MG/TRIPROLIDI 2.5MG TABLET PO PRN (14:45)
[2023-08-04] MEDS: OLANZapine 5 MG TABLET PO SCH (23:20)
[2023-08-04] MEDS: THIAMINE HCL 100 MG TABLET (FP) PO SCH (23:20)
[2023-08-04] MEDS: traZODone HCL 50 MG TABLET (FP) PO SCH (23:20)
[2023-08-04] MEDS: MELATONIN 5 MG TABLETS PO SCH (23:20)
[2023-08-04] MEDS: LATANOPROST 0.005% OPHTH SOLN 2.5ML BOTTLE OU SCH (23:24)
[2023-08-05] MEDS: diazePAM 5 MG TABLET PO SCH ×3 (06:02→22:59)
[2023-08-05] MEDS: TIMOLOL 0.5% OPHTHALMIC SOL 5 ML BOTTLE OU SCH ×3 (07:30→19:32)
[2023-08-05] MEDS: TAMSULOSIN HCL 0.4 MG CAP PO SCH (09:28)
[2023-08-05] MEDS: PRENATAL VITAMINS W/ FOLIC ACID TABLET (FP) PO SCH (10:14)
[2023-08-05] MEDS: BUDESONIDE/FORMETEROL FUMARATE 160/4.5 mcg INHALER IH SCH ×2 (10:14→22:57)
[2023-08-05] MEDS: FAMOTIDINE 20 MG TABLET PO SCH (10:14)
[2023-08-05] MEDS: hydrOXYzine PAMOATE 25 MG CAPSULE (FP) PO PRN ×2 (10:20→22:56)
[2023-08-05] MEDS: ACETAMINOPHEN 325 MG TABLET (FP) PO PRN ×3 (10:20→23:05)
[2023-08-05] MEDS: diazePAM 5 MG TABLET PO PRN ×2 (10:20→18:31)
[2023-08-05] MEDS: MAGNESIUM HYDROX 2400MG/30ML ORAL SUSPENSION 30 ML CUP PO PRN (12:24)
[2023-08-05] MEDS: FLUTICASONE PROP 0.05% 16 GM NASAL SPRAY NS SCH (14:37)
[2023-08-05] MEDS: ARTIFICIAL TEARS (POLYVINYL ALCOHOL) OPTH DROPS OU SCH ×2 (14:37→23:03)
[2023-08-05] MEDS: LIDOCAINE 5% TOPICAL PATCH TP SCH (14:37)
[2023-08-05] MEDS ORDERED: ALBUTEROL SO4 HFA INHALER IH PRN (19:05)
[2023-08-05] MEDS: MELATONIN 5 MG TABLETS PO SCH (22:55)
[2023-08-05] MEDS: traZODone HCL 50 MG TABLET (FP) PO SCH (22:55)
[2023-08-05] MEDS: OLANZapine 5 MG TABLET PO SCH (22:56)
[2023-08-05] MEDS: THIAMINE HCL 100 MG TABLET (FP) PO SCH (22:56)
[2023-08-05] MEDS: LIDOCAINE PATCH REMOVAL MC SCH (22:58)
[2023-08-05] MEDS: LATANOPROST 0.005% OPHTH SOLN 2.5ML BOTTLE OU SCH (23:00)
[2023-08-06] MEDS: diazePAM 5 MG TABLET PO SCH ×2 (06:03→18:10)
[2023-08-06] MEDS: TIMOLOL 0.5% OPHTHALMIC SOL 5 ML BOTTLE OU SCH ×2 (07:16→18:11)
[2023-08-06] MEDS: FAMOTIDINE 20 MG TABLET PO SCH (10:36)
[2023-08-06] MEDS: LIDOCAINE 5% TOPICAL PATCH TP SCH (10:36)
[2023-08-06] MEDS: PRENATAL VITAMINS W/ FOLIC ACID TABLET (FP) PO SCH (10:36)
[2023-08-06] MEDS: FLUTICASONE PROP 0.05% 16 GM NASAL SPRAY NS SCH (10:37)
[2023-08-06] MEDS: TAMSULOSIN HCL 0.4 MG CAP PO SCH (10:38)
[2023-08-06] MEDS: ARTIFICIAL TEARS (POLYVINYL ALCOHOL) OPTH DROPS OU SCH ×2 (10:38→22:21)
[2023-08-06] MEDS: BUDESONIDE/FORMETEROL FUMARATE 160/4.5 mcg INHALER IH SCH ×2 (10:38→22:17)
[2023-08-06] MEDS: ACETAMINOPHEN 325 MG TABLET (FP) PO PRN (10:41)
[2023-08-06] MEDS: hydrOXYzine PAMOATE 25 MG CAPSULE (FP) PO PRN ×2 (10:42→22:16)
[2023-08-06] MEDS: traZODone HCL 50 MG TABLET (FP) PO SCH (22:16)
[2023-08-06] MEDS: THIAMINE HCL 100 MG TABLET (FP) PO SCH (22:16)
[2023-08-06] MEDS: MELATONIN 5 MG TABLETS PO SCH (22:16)
[2023-08-06] MEDS: LATANOPROST 0.005% OPHTH SOLN 2.5ML BOTTLE OU SCH (22:16)
[2023-08-06] MEDS: OLANZapine 5 MG TABLET PO SCH (22:17)
[2023-08-06] MEDS: LIDOCAINE PATCH REMOVAL MC SCH (22:17)
[2023-08-07] MEDS ORDERED: diazePAM 5 MG TABLET PO ONE (06:00)
[2023-08-07 06:27] VITALS: RESP 16
[2023-08-07] MEDS: TIMOLOL 0.5% OPHTHALMIC SOL 5 ML BOTTLE OU SCH (07:35)
[2023-08-07 09:11] VITALS: BP 104/66; PULSE 68; TEMP 97.9
[2023-08-07] MEDS: BUDESONIDE/FORMETEROL FUMARATE 160/4.5 mcg INHALER IH SCH (09:21)
[2023-08-07] MEDS: TAMSULOSIN HCL 0.4 MG CAP PO SCH (09:21)
[2023-08-07] MEDS: FAMOTIDINE 20 MG TABLET PO SCH (09:21)
[2023-08-07] MEDS: FLUTICASONE PROP 0.05% 16 GM NASAL SPRAY NS SCH (09:22)
[2023-08-07] MEDS: LIDOCAINE 5% TOPICAL PATCH TP SCH (09:22)
[2023-08-07] MEDS: ARTIFICIAL TEARS (POLYVINYL ALCOHOL) OPTH DROPS OU SCH (09:23)
[2023-08-07] MEDS: PRENATAL VITAMINS W/ FOLIC ACID TABLET (FP) PO SCH (09:23)
== END 2023-08-07 11:34 | disposition other institution (70) | DRG 774 ==
LOC: YASAS 12:24 → Y3N 16:50
PROVIDERS: ADMIT Allergy & Immunology; ATTEND Surgery
PROC: HZ2ZZZZ Detoxification Services for Substance Abuse Treatment (ICD-10-PCS; principal; 2023-08-02)
DX: F10.230 Alcohol dependence with withdrawal, uncomplicated (principal); F14.20 Cocaine dependence, uncomplicated; F12.20 Cannabis dependence, uncomplicated; F25.1 Schizoaffective disorder, depressive type; F19.24 Other psychoactive substance dependence with psychoactive substance-induced mood disorder; F41.9 Anxiety disorder, unspecified; F32.A Depression, unspecified; H54.61 Unqualified visual loss, right eye, normal vision left eye; I10 Essential (primary) hypertension; J43.0 Unilateral pulmonary emphysema [MacLeod's syndrome]; M54.50 Low back pain, unspecified; G89.29 Other chronic pain; N40.0 Benign prostatic hyperplasia without lower urinary tract symptoms; Z88.0 Allergy status to penicillin; Z88.8 Allergy status to other drugs, medicaments and biological substances
CPT/HCPCS: 26055; 73110-TC-LT-FY; 87635; 94640

== ENCOUNTER 2023-09-06 17:24 | Inpatient (IN) | payer OTHER ==
[2023-09-06 18:34] VITALS: BMI 22.8
[2023-09-06] MEDS ORDERED: MAG HYDROX/AL HYDROX/SIMETH 30 ML UNIT-DOSE CUP PO PRN (19:24)
[2023-09-06] MEDS ORDERED: diazePAM 5 MG TABLET PO PRN (19:24)
[2023-09-06] MEDS ORDERED: BENZONATATE 200 MG CAPSULE PO PRN (19:24)
[2023-09-06] MEDS ORDERED: NICOTINE POLACRILEX 2 MG GUM BUC PRN (19:24)
[2023-09-06] MEDS ORDERED: NALOXONE HCL (KLOXXADO) 8 MG SPRAY NS PRN (19:24)
[2023-09-06] MEDS ORDERED: MAGNESIUM HYDROX 2400MG/30ML ORAL SUSPENSION 30 ML CUP PO PRN (19:24)
[2023-09-06] MEDS ORDERED: NALOXONE HCL 0.4 MG/ML VIAL IM PRN (19:24)
[2023-09-06] MEDS ORDERED: BACLOFEN 10 MG TABLET (FP) PO PRN (19:24)
[2023-09-06] MEDS ORDERED: COLLOIDAL OATMEAL 1 BAR EACH TP PRN (19:24)
[2023-09-06] MEDS ORDERED: DICYCLOMINE HCL 10 MG CAPSULE PO PRN (19:24)
[2023-09-06] MEDS ORDERED: hydrOXYzine PAMOATE 25 MG CAPSULE (FP) PO PRN (19:24)
[2023-09-06] MEDS ORDERED: POLYETHYLENE GLYCOL (HEALTHYLAX) 3350 17 GM PACKET PO PRN (19:24)
[2023-09-06] MEDS ORDERED: ACETAMINOPHEN 325 MG TABLET (FP) PO PRN (19:24)
[2023-09-06] MEDS ORDERED: LOPERAMIDE HCL 2 MG CAPSULE PO PRN (19:24)
[2023-09-06] MEDS ORDERED: AMMONIUM LACTATE 12% LOTION 225 GM BOTTLE TP PRN (19:24)
[2023-09-06] MEDS ORDERED: MELATONIN 5 MG TABLETS PO SCH (22:00)
[2023-09-06] MEDS: THIAMINE HCL 100 MG TABLET (FP) PO SCH (22:56)
[2023-09-06] MEDS: diazePAM 5 MG TABLET PO SCH (22:57)
[2023-09-06] MEDS: LIDOCAINE PATCH REMOVAL MC SCH (22:58)
[2023-09-07] MEDS: diazePAM 5 MG TABLET PO SCH ×4 (05:37→22:32)
[2023-09-07] MEDS: ACETAMINOPHEN 325 MG TABLET (FP) PO PRN (06:20)
[2023-09-07] MEDS: BENZOCAINE/MENTHOL (CHLORASEPTIC ) LOZENGE MM PRN ×2 (06:21→20:02)
[2023-09-07 09:34] LABS: HEMATOCRIT 34.8 % (35.4-49); HEMOGLOBIN 12.3 GM/dL (11.7-16.9); MCH 30.5 pg (25.7-33.7); MCHC 35.5 g/dl (32.0-35.9); MEAN CELL VOLUME 85.9 fl (80-96); MEAN PLT VOLUME 8.6 fl (7.5-11.1); PLATELET COUNT 219 10^3/uL (134-434); RBC 4.05 M/mm3 (4.00-5.60); RDW 16.6 % (11.9-15.9)
[2023-09-07 10:18] LABS: TOT PROT 7.1 g/dl (6.4-8.2)
[2023-09-07 10:25] LABS: BILIRUBIN,TOTAL 0.5 mg/dL (0.2-1)
[2023-09-07 10:28] LABS: ALBUMIN 3.4 g/dl (3.4-5.0); BLOOD UREA NITROGEN 8.4 mg/dL (7-18); CALCIUM 8.8 mg/dL (8.5-10.1)
[2023-09-07] MEDS: PRENATAL VITAMINS W/ FOLIC ACID TABLET (FP) PO SCH (10:30)
[2023-09-07] MEDS: NICOTINE 14 MG/24 HOURS TOPICAL PATCH TD SCH (10:32)
[2023-09-07] MEDS: LIDOCAINE 5% TOPICAL PATCH TP SCH (10:32)
[2023-09-07 11:33] LABS: POTASSIUM 3.9 mmol/L (3.5-5.1)
[2023-09-07] MEDS ORDERED: BUDESONIDE/FORMETEROL FUMARATE 160/4.5 mcg INHALER IH ONE (11:45)
[2023-09-07] MEDS ORDERED: TIMOLOL 0.5% OPHTHALMIC SOL 5 ML BOTTLE OU ONE (12:00)
[2023-09-07] MEDS: diphenhydrAMINE HCL 50 MG CAPSULE PO PRN (15:18)
[2023-09-07] MEDS: FLUTICASONE PROP 0.05% 16 GM NASAL SPRAY NS SCH (15:53)
[2023-09-07] MEDS: ALBUTEROL SO4 HFA INHALER IH PRN (17:36)
[2023-09-07] MEDS: guaiFENesin 600 MG TABLET.ER (FP) PO PRN (20:02)
[2023-09-07] MEDS ORDERED: TIMOLOL 0.5% OPHTHALMIC SOL 5 ML BOTTLE OU SCH (22:00)
[2023-09-07] MEDS: THIAMINE HCL 100 MG TABLET (FP) PO SCH (22:31)
[2023-09-07] MEDS: TAMSULOSIN HCL 0.4 MG CAP PO SCH (22:31)
[2023-09-07] MEDS: traZODone HCL 50 MG TABLET (FP) PO SCH (22:31)
[2023-09-07] MEDS: LATANOPROST 0.005% OPHTH SOLN 2.5ML BOTTLE OU SCH (22:32)
[2023-09-07] MEDS: OLANZapine 5 MG TABLET PO SCH (22:34)
[2023-09-07] MEDS: TIMOLOL 0.5% OPHTHALMIC SOL 5 ML BOTTLE OU SCH (22:40)
[2023-09-07] MEDS: BUDESONIDE/FORMETEROL FUMARATE 160/4.5 mcg INHALER IH SCH (22:40)
[2023-09-07] MEDS: LIDOCAINE PATCH REMOVAL MC SCH (22:56)
[2023-09-08] MEDS: diazePAM 5 MG TABLET PO SCH ×3 (05:35→22:00)
[2023-09-08] MEDS: NICOTINE 14 MG/24 HOURS TOPICAL PATCH TD SCH (10:34)
[2023-09-08] MEDS: PRENATAL VITAMINS W/ FOLIC ACID TABLET (FP) PO SCH (10:34)
[2023-09-08] MEDS: BUDESONIDE/FORMETEROL FUMARATE 160/4.5 mcg INHALER IH SCH ×2 (10:34→22:01)
[2023-09-08] MEDS: FLUTICASONE PROP 0.05% 16 GM NASAL SPRAY NS SCH (10:34)
[2023-09-08] MEDS: LIDOCAINE 5% TOPICAL PATCH TP SCH (10:35)
[2023-09-08] MEDS: TIMOLOL 0.5% OPHTHALMIC SOL 5 ML BOTTLE OU SCH ×2 (10:36→22:01)
[2023-09-08] MEDS: FAMOTIDINE 20 MG TABLET PO SCH (14:21)
[2023-09-08] MEDS: diphenhydrAMINE HCL 50 MG CAPSULE PO PRN (15:03)
[2023-09-08] MEDS: ONDANSETRON *ODT* 4 MG TABLET SL PRN (15:03)
[2023-09-08] MEDS: guaiFENesin 600 MG TABLET.ER (FP) PO PRN (15:04)
[2023-09-08] MEDS: ALBUTEROL SO4 HFA INHALER IH PRN (15:04)
[2023-09-08] MEDS: TAMSULOSIN HCL 0.4 MG CAP PO SCH (22:00)
[2023-09-08] MEDS: OLANZapine 5 MG TABLET PO SCH (22:00)
[2023-09-08] MEDS: THIAMINE HCL 100 MG TABLET (FP) PO SCH (22:00)
[2023-09-08] MEDS: traZODone HCL 50 MG TABLET (FP) PO SCH (22:00)
[2023-09-08] MEDS: LATANOPROST 0.005% OPHTH SOLN 2.5ML BOTTLE OU SCH (22:01)
[2023-09-08] MEDS: LIDOCAINE PATCH REMOVAL MC SCH (23:39)
[2023-09-09] MEDS: diazePAM 5 MG TABLET PO SCH ×2 (06:08→18:17)
[2023-09-09] MEDS: ONDANSETRON *ODT* 4 MG TABLET SL PRN (06:10)
[2023-09-09] MEDS: ACETAMINOPHEN 325 MG TABLET (FP) PO PRN (06:11)
[2023-09-09] MEDS: diphenhydrAMINE HCL 50 MG CAPSULE PO PRN (06:14)
[2023-09-09] MEDS: FAMOTIDINE 20 MG TABLET PO SCH (10:10)
[2023-09-09] MEDS: FLUTICASONE PROP 0.05% 16 GM NASAL SPRAY NS SCH (10:10)
[2023-09-09] MEDS: LIDOCAINE 5% TOPICAL PATCH TP SCH (10:10)
[2023-09-09] MEDS: NICOTINE 14 MG/24 HOURS TOPICAL PATCH TD SCH (10:10)
[2023-09-09] MEDS: PRENATAL VITAMINS W/ FOLIC ACID TABLET (FP) PO SCH (10:11)
[2023-09-09] MEDS: BUDESONIDE/FORMETEROL FUMARATE 160/4.5 mcg INHALER IH SCH ×2 (10:11→22:49)
[2023-09-09] MEDS: TIMOLOL 0.5% OPHTHALMIC SOL 5 ML BOTTLE OU SCH ×2 (10:11→22:49)
[2023-09-09] MEDS ORDERED: guaiFENesin 200 MG/10 ML 10 ML UNIT-DOSE CUPS PO PRN (14:43)
[2023-09-09 21:30] VITALS: RESP 16
[2023-09-09] MEDS: OLANZapine 5 MG TABLET PO SCH (22:49)
[2023-09-09] MEDS: THIAMINE HCL 100 MG TABLET (FP) PO SCH (22:49)
[2023-09-09] MEDS: TAMSULOSIN HCL 0.4 MG CAP PO SCH (22:49)
[2023-09-09] MEDS: traZODone HCL 50 MG TABLET (FP) PO SCH (22:49)
[2023-09-09] MEDS: LATANOPROST 0.005% OPHTH SOLN 2.5ML BOTTLE OU SCH (22:50)
[2023-09-10] MEDS: LIDOCAINE PATCH REMOVAL MC SCH (00:06)
[2023-09-10] MEDS ORDERED: diazePAM 5 MG TABLET PO ONE (06:00)
[2023-09-10 09:07] VITALS: BP 129/76; PULSE 70; TEMP 98.1
[2023-09-10] MEDS: LIDOCAINE 5% TOPICAL PATCH TP SCH (09:29)
[2023-09-10] MEDS: PRENATAL VITAMINS W/ FOLIC ACID TABLET (FP) PO SCH (09:29)
[2023-09-10] MEDS: BUDESONIDE/FORMETEROL FUMARATE 160/4.5 mcg INHALER IH SCH (09:29)
[2023-09-10] MEDS: FAMOTIDINE 20 MG TABLET PO SCH (09:29)
[2023-09-10] MEDS: NICOTINE 14 MG/24 HOURS TOPICAL PATCH TD SCH (09:29)
[2023-09-10] MEDS: TIMOLOL 0.5% OPHTHALMIC SOL 5 ML BOTTLE OU SCH (09:30)
== END 2023-09-10 10:15 | disposition other institution (70) | DRG 774 ==
LOC: YASAS 17:24 → Y6N 20:10
PROVIDERS: ADMIT Allergy & Immunology; ATTEND Surgery
PROC: HZ2ZZZZ Detoxification Services for Substance Abuse Treatment (ICD-10-PCS; principal; 2023-09-06)
DX: F10.230 Alcohol dependence with withdrawal, uncomplicated (principal); F13.20 Sedative, hypnotic or anxiolytic dependence, uncomplicated; F14.20 Cocaine dependence, uncomplicated; F12.20 Cannabis dependence, uncomplicated; F17.210 Nicotine dependence, cigarettes, uncomplicated; F20.0 Paranoid schizophrenia; F10.282 Alcohol dependence with alcohol-induced sleep disorder; F10.24 Alcohol dependence with alcohol-induced mood disorder; I10 Essential (primary) hypertension; J43.0 Unilateral pulmonary emphysema [MacLeod's syndrome]; J45.20 Mild intermittent asthma, uncomplicated; K21.9 Gastro-esophageal reflux disease without esophagitis; H40.2231 Chronic angle-closure glaucoma, bilateral, mild stage; M54.50 Low back pain, unspecified; G89.29 Other chronic pain; N40.0 Benign prostatic hyperplasia without lower urinary tract symptoms; Z88.0 Allergy status to penicillin; Z88.8 Allergy status to other drugs, medicaments and biological substances; Z87.11 Personal history of peptic ulcer disease; Z99.89 Dependence on other enabling machines and devices
CPT/HCPCS: 36415; 80053; 85027; 86780; 87635; J0475; Q0162

== ENCOUNTER 2023-09-25 09:48 | Inpatient (IN) | payer OTHER ==
[2023-09-25 11:11] VITALS: BMI 23.6
[2023-09-25] MEDS ORDERED: IBUPROFEN 400 MG TABLET (FP) PO PRN (12:13)
[2023-09-25] MEDS ORDERED: NALOXONE HCL 0.4 MG/ML VIAL IM PRN (12:13)
[2023-09-25] MEDS ORDERED: NALOXONE HCL (KLOXXADO) 8 MG SPRAY NS PRN (12:13)
[2023-09-25] MEDS ORDERED: IBUPROFEN 600 MG TABLET (FP) PO PRN (12:13)
[2023-09-25] MEDS ORDERED: MAG HYDROX/AL HYDROX/SIMETH 30 ML UNIT-DOSE CUP PO PRN (12:13)
[2023-09-25] MEDS ORDERED: COLLOIDAL OATMEAL 1 BAR EACH TP PRN (12:13)
[2023-09-25] MEDS ORDERED: BENZONATATE 200 MG CAPSULE PO PRN (12:13)
[2023-09-25] MEDS ORDERED: hydrOXYzine PAMOATE 25 MG CAPSULE (FP) PO PRN (12:13)
[2023-09-25] MEDS ORDERED: guaiFENesin 600 MG TABLET.ER (FP) PO PRN (12:13)
[2023-09-25] MEDS ORDERED: BENZOCAINE/MENTHOL (CHLORASEPTIC ) LOZENGE MM PRN (12:13)
[2023-09-25] MEDS ORDERED: POLYETHYLENE GLYCOL (HEALTHYLAX) 3350 17 GM PACKET PO PRN (12:13)
[2023-09-25] MEDS ORDERED: MAGNESIUM HYDROX 2400MG/30ML ORAL SUSPENSION 30 ML CUP PO PRN (12:13)
[2023-09-25] MEDS ORDERED: LOPERAMIDE HCL 2 MG CAPSULE PO PRN (12:13)
[2023-09-25] MEDS: MELATONIN 5 MG TABLETS PO SCH (21:14)
[2023-09-25] MEDS: THIAMINE HCL 100 MG TABLET (FP) PO SCH (21:14)
[2023-09-26] MEDS: FAMOTIDINE 20 MG TABLET PO SCH (09:18)
[2023-09-26] MEDS: PRENATAL VITAMINS W/ FOLIC ACID TABLET (FP) PO SCH (09:18)
[2023-09-26] MEDS: ACETAMINOPHEN 325 MG TABLET (FP) PO PRN ×2 (09:19→21:35)
[2023-09-26] MEDS: TIMOLOL 0.5% OPHTHALMIC SOL 5 ML BOTTLE OU SCH ×2 (09:19→21:33)
[2023-09-26] MEDS ORDERED: FLUTICASONE PROP 0.05% 16 GM NASAL SPRAY NS PRN (10:08)
[2023-09-26] MEDS: BUDESONIDE/FORMETEROL FUMARATE 160/4.5 mcg INHALER IH SCH ×2 (10:29→21:33)
[2023-09-26 11:53] LABS: HEMATOCRIT 35.5 % (35.4-49); HEMOGLOBIN 11.4 GM/dL (11.7-16.9); MCH 28.5 pg (25.7-33.7); MCHC 32.1 g/dl (32.0-35.9); MEAN CELL VOLUME 88.9 fl (80-96); MEAN PLT VOLUME 10.4 fl (7.5-11.1); PLATELET COUNT 197 10^3/uL (134-434); RDW 16.5 % (11.9-15.9)
[2023-09-26 11:54] LABS: CHLORIDE 102 mmol/L (98-107); POTASSIUM 4.1 mmol/L (3.5-5.1); SODIUM 138 mmol/L (136-145)
[2023-09-26 11:58] LABS: CALCIUM 8.6 mg/dL (8.5-10.1)
[2023-09-26 11:59] LABS: ALBUMIN 3.7 g/dl (3.4-5.0); ANION GAP 8 mmol/L (4-13); BLOOD UREA NITROGEN 8.2 mg/dL (7-18); CO2 29 mmol/L (21-32); GLUCOSE,RANDOM 73 mg/dL (74-106)
[2023-09-26 12:01] LABS: CREATININE 0.8 mg/dL (0.55-1.3); SGOT/AST 23 U/L (15-37); SGPT/ALT 17 U/L (13-61)
[2023-09-26 12:03] LABS: BILIRUBIN,TOTAL 1.1 mg/dL (0.2-1)
[2023-09-26 12:05] LABS: ALK PHOS 100 U/L (45-117)
[2023-09-26] MEDS ORDERED: AMMONIUM LACTATE 12% LOTION 225 GM BOTTLE TP PRN (13:59)
[2023-09-26] MEDS ORDERED: NICOTINE POLACRILEX 2 MG GUM BUC PRN (14:00)
[2023-09-26] MEDS ORDERED: NICOTINE 14 MG/24 HOURS TOPICAL PATCH TD SCH (14:15)
[2023-09-26] MEDS: NICOTINE 21 MG/24 HOURS TOPICAL PATCH TD SCH (14:58)
[2023-09-26] MEDS: OLANZapine 5 MG TABLET PO SCH (21:33)
[2023-09-26] MEDS: THIAMINE HCL 100 MG TABLET (FP) PO SCH (21:33)
[2023-09-26] MEDS: TAMSULOSIN HCL 0.4 MG CAP PO SCH (21:33)
[2023-09-26] MEDS: MELATONIN 5 MG TABLETS PO SCH (21:33)
[2023-09-26] MEDS: traZODone HCL 50 MG TABLET (FP) PO SCH (21:33)
[2023-09-26] MEDS: diphenhydrAMINE HCL 25 MG CAPSULE (FP) PO PRN (21:33)
[2023-09-26] MEDS: LATANOPROST 0.005% OPHTH SOLN 2.5ML BOTTLE OU SCH (21:38)
[2023-09-27] MEDS: TIMOLOL 0.5% OPHTHALMIC SOL 5 ML BOTTLE OU SCH ×2 (09:42→21:21)
[2023-09-27] MEDS: PRENATAL VITAMINS W/ FOLIC ACID TABLET (FP) PO SCH (09:42)
[2023-09-27] MEDS: NICOTINE 21 MG/24 HOURS TOPICAL PATCH TD SCH (09:43)
[2023-09-27] MEDS: FAMOTIDINE 20 MG TABLET PO SCH (09:43)
[2023-09-27] MEDS: BUDESONIDE/FORMETEROL FUMARATE 160/4.5 mcg INHALER IH SCH ×2 (09:43→21:20)
[2023-09-27 11:22] LABS: INR 1.01 (0.83-1.09); PROTHROMBIN TIME (PATIENT) 11.7 SEC (9.7-13.0)
[2023-09-27] MEDS: ALBUTEROL SO4 HFA INHALER IH PRN ×2 (13:48→21:24)
[2023-09-27] MEDS: LACTULOSE 20 GM/30 ML UDC (FOR ORAL USE ONLY) PO SCH ×2 (15:13→21:20)
[2023-09-27 15:22] LABS: EPI CELLS 15 /uL (0-25.1); HYALINE CASTS 2 /uL (0-3.1); URINE APPEARANCE CLEAR; URINE BACTERIA 105 /uL (0-1359); URINE BILIRUBIN NEGATIVE (NEGATIVE); URINE COLOR YELLOW; URINE GLUCOSE (UA) NEGATIVE (NEGATIVE); URINE KETONE NEGATIVE (NEGATIVE); URINE LEUK ESTERASE TRACE (NEGATIVE); URINE NITRITE NEGATIVE (NEGATIVE); URINE PROTEIN NEGATIVE (NEGATIVE); URINE RBC 3 /uL (0-23.9); URINE WBC 9 /uL (0-25.8)
[2023-09-27] MEDS: TAMSULOSIN HCL 0.4 MG CAP PO SCH (21:19)
[2023-09-27] MEDS: MELATONIN 5 MG TABLETS PO SCH (21:19)
[2023-09-27] MEDS: traZODone HCL 50 MG TABLET (FP) PO SCH (21:19)
[2023-09-27] MEDS: OLANZapine 5 MG TABLET PO SCH (21:19)
[2023-09-27] MEDS: THIAMINE HCL 100 MG TABLET (FP) PO SCH (21:19)
[2023-09-27] MEDS: diphenhydrAMINE HCL 25 MG CAPSULE (FP) PO PRN (21:21)
[2023-09-27] MEDS: LATANOPROST 0.005% OPHTH SOLN 2.5ML BOTTLE OU SCH (21:21)
[2023-09-28] MEDS: LACTULOSE 20 GM/30 ML UDC (FOR ORAL USE ONLY) PO SCH (06:28)
[2023-09-28 06:38] VITALS: BP 163/76; PULSE 90; RESP 20; TEMP 98.2
[2023-09-28] MEDS: NICOTINE 21 MG/24 HOURS TOPICAL PATCH TD SCH (09:21)
[2023-09-28] MEDS: FAMOTIDINE 20 MG TABLET PO SCH (09:21)
[2023-09-28] MEDS: PRENATAL VITAMINS W/ FOLIC ACID TABLET (FP) PO SCH (09:21)
[2023-09-28] MEDS: BUDESONIDE/FORMETEROL FUMARATE 160/4.5 mcg INHALER IH SCH (09:21)
[2023-09-28] MEDS: TIMOLOL 0.5% OPHTHALMIC SOL 5 ML BOTTLE OU SCH (09:21)
== END 2023-09-28 10:18 | disposition home or self-care (01) | DRG 772 ==
LOC: YASAS 09:48 → Y3E 15:09
PROVIDERS: ADMIT Allergy & Immunology; ATTEND Psychiatry & Neurology Pain Medicine
PROC: HZ42ZZZ Group Counseling for Substance Abuse Treatment, Cognitive-Behavioral (ICD-10-PCS; principal; 2023-09-25)
DX: F10.20 Alcohol dependence, uncomplicated (principal); F14.20 Cocaine dependence, uncomplicated; F12.20 Cannabis dependence, uncomplicated; F17.210 Nicotine dependence, cigarettes, uncomplicated; F20.0 Paranoid schizophrenia; F10.24 Alcohol dependence with alcohol-induced mood disorder; E72.20 Disorder of urea cycle metabolism, unspecified; H40.9 Unspecified glaucoma; H54.61 Unqualified visual loss, right eye, normal vision left eye; J44.9 Chronic obstructive pulmonary disease, unspecified; J45.20 Mild intermittent asthma, uncomplicated; M54.50 Low back pain, unspecified; G89.29 Other chronic pain; Z87.11 Personal history of peptic ulcer disease; Z88.0 Allergy status to penicillin; Z88.8 Allergy status to other drugs, medicaments and biological substances; Z99.89 Dependence on other enabling machines and devices
CPT/HCPCS: 36415; 80053; 80307; 81003; 82140; 82652; 83735; 85027; 85610; 86780; 86803; 87635; 87811

== ENCOUNTER 2023-10-16 10:40 | Inpatient (IN) | payer OTHER ==
[2023-10-16 11:25] VITALS: BMI 23.0
[2023-10-16] MEDS ORDERED: ALBUTEROL SO4 HFA INHALER IH ONE (12:16)
[2023-10-16] MEDS ORDERED: LOPERAMIDE HCL 2 MG CAPSULE PO PRN (15:29)
[2023-10-16] MEDS ORDERED: POLYETHYLENE GLYCOL (HEALTHYLAX) 3350 17 GM PACKET PO PRN (15:29)
[2023-10-16] MEDS ORDERED: NALOXONE HCL 0.4 MG/ML VIAL IM PRN (15:29)
[2023-10-16] MEDS ORDERED: MAG HYDROX/AL HYDROX/SIMETH 30 ML UNIT-DOSE CUP PO PRN (15:29)
[2023-10-16] MEDS ORDERED: MAGNESIUM HYDROX 2400MG/30ML ORAL SUSPENSION 30 ML CUP PO PRN (15:29)
[2023-10-16] MEDS ORDERED: BISMUTH SUBSALICYLATE 524 MG/30 ML PO PRN (15:29)
[2023-10-16] MEDS ORDERED: ONDANSETRON *ODT* 4 MG TABLET SL PRN (15:29)
[2023-10-16] MEDS ORDERED: NICOTINE POLACRILEX 4 MG GUM BUC PRN (15:29)
[2023-10-16] MEDS ORDERED: guaiFENesin 600 MG TABLET.ER (FP) PO PRN (15:29)
[2023-10-16] MEDS ORDERED: NALOXONE HCL (KLOXXADO) 8 MG SPRAY NS PRN (15:29)
[2023-10-16] MEDS ORDERED: BENZONATATE 200 MG CAPSULE PO PRN (15:29)
[2023-10-16] MEDS ORDERED: chlordiazePOXIDE HCL 25 MG CAPSULE PO PRN (15:39)
[2023-10-16] MEDS ORDERED: TRIMETHOBENZAMIDE HCL 200MG/2ML INJ IM ONE (15:48)
[2023-10-16] MEDS ORDERED: COLLOIDAL OATMEAL 1 BAR EACH TP PRN (15:49)
[2023-10-16] MEDS: chlordiazePOXIDE HCL 25 MG CAPSULE PO SCH ×2 (16:57→22:35)
[2023-10-16] MEDS: MELATONIN 5 MG TABLETS PO SCH (22:35)
[2023-10-16] MEDS: THIAMINE HCL 100 MG TABLET (FP) PO SCH (22:35)
[2023-10-17] MEDS: chlordiazePOXIDE HCL 25 MG CAPSULE PO SCH ×4 (05:42→22:45)
[2023-10-17] MEDS: BENZOCAINE/MENTHOL (CHLORASEPTIC ) LOZENGE MM PRN (05:45)
[2023-10-17] MEDS ORDERED: TIMOLOL 0.5% OPHTHALMIC SOL 5 ML BOTTLE OU SCH (10:00)
[2023-10-17] MEDS: PRENATAL VITAMINS W/ FOLIC ACID TABLET (FP) PO SCH (10:14)
[2023-10-17] MEDS: LISINOPRIL 5 MG TABLET PO SCH (10:15)
[2023-10-17] MEDS: FAMOTIDINE 20 MG TABLET PO SCH (10:15)
[2023-10-17] MEDS: NICOTINE 21 MG/24 HOURS TOPICAL PATCH TD SCH (10:16)
[2023-10-17] MEDS: BUDESONIDE/FORMETEROL FUMARATE 160/4.5 mcg INHALER IH SCH ×2 (10:16→22:35)
[2023-10-17] MEDS: ALBUTEROL SO4 HFA INHALER IH PRN ×3 (10:25→22:37)
[2023-10-17 10:54] LABS: HEMATOCRIT 36.1 % (35.4-49); HEMOGLOBIN 11.8 GM/dL (11.7-16.9); MCHC 32.7 g/dl (32.0-35.9); MEAN CELL VOLUME 88.6 fl (80-96); MEAN PLT VOLUME 8.2 fl (7.5-11.1); PLATELET COUNT 341 10^3/uL (134-434); RBC 4.08 M/mm3 (4.00-5.60); RDW 16.6 % (11.9-15.9); WHITE BLOOD COUNT 3.9 K/mm3 (4.0-10.0)
[2023-10-17 10:57] LABS: CHLORIDE 100 mmol/L (98-107); SODIUM 139 mmol/L (136-145)
[2023-10-17 11:16] LABS: ALBUMIN 3.5 g/dl (3.4-5.0); ANION GAP 8 mmol/L (4-13); BLOOD UREA NITROGEN 9.2 mg/dL (7-18); CO2 32 mmol/L (21-32); GLUCOSE,RANDOM 91 mg/dL (74-106)
[2023-10-17 11:18] LABS: SGPT/ALT 18 U/L (13-61)
[2023-10-17 11:20] LABS: CREATININE 0.9 mg/dL (0.55-1.3); SGOT/AST 18 U/L (15-37); TOT PROT 6.8 g/dl (6.4-8.2)
[2023-10-17 11:21] LABS: ALK PHOS 102 U/L (45-117)
[2023-10-17 13:05] LABS: HIV INTERPRETATION NEGATIVE (NEGATIVE)
[2023-10-17] MEDS: LACTULOSE 20 GM/30 ML UDC (FOR ORAL USE ONLY) PO SCH ×2 (13:42→22:36)
[2023-10-17] MEDS ORDERED: diphenhydrAMINE HCL 25 MG CAPSULE (FP) PO ONE (14:26)
[2023-10-17] MEDS: HYDROCORTISONE 1% TOPICAL CREAM 30 GM TUBE TP PRN (14:34)
[2023-10-17] MEDS: ACETAMINOPHEN 325 MG TABLET (FP) PO PRN ×2 (14:35→22:59)
[2023-10-17] MEDS: TIMOLOL 0.5% OPHTHALMIC SOL 5 ML BOTTLE OU SCH (18:29)
[2023-10-17] MEDS: LIDOCAINE 4% PATCH TP SCH (19:00)
[2023-10-17] MEDS: FLUTICASONE PROP 0.05% 16 GM NASAL SPRAY NS PRN (19:01)
[2023-10-17] MEDS ORDERED: traZODone HCL 100 MG TABLET (FP) PO SCH (22:00)
[2023-10-17] MEDS: MELATONIN 5 MG TABLETS PO SCH (22:35)
[2023-10-17] MEDS: LATANOPROST 0.005% OPHTH SOLN 2.5ML BOTTLE OU SCH (22:35)
[2023-10-17] MEDS: THIAMINE HCL 100 MG TABLET (FP) PO SCH (22:35)
[2023-10-17] MEDS: OLANZapine 5 MG TABLET PO SCH (22:35)
[2023-10-17] MEDS: TAMSULOSIN HCL 0.4 MG CAP PO SCH (22:36)
[2023-10-17] MEDS: traZODone HCL 50 MG TABLET (FP) PO SCH (22:36)
[2023-10-17] MEDS: LIDOCAINE PATCH REMOVAL MC SCH (22:37)
[2023-10-18] MEDS: LACTULOSE 20 GM/30 ML UDC (FOR ORAL USE ONLY) PO SCH ×4 (05:56→22:46)
[2023-10-18] MEDS: chlordiazePOXIDE HCL 25 MG CAPSULE PO SCH ×4 (05:56→22:47)
[2023-10-18] MEDS: ACETAMINOPHEN 325 MG TABLET (FP) PO PRN (06:02)
[2023-10-18] MEDS: NICOTINE 21 MG/24 HOURS TOPICAL PATCH TD SCH (09:56)
[2023-10-18] MEDS: LIDOCAINE 4% PATCH TP SCH (09:56)
[2023-10-18] MEDS: FLUTICASONE PROP 0.05% 16 GM NASAL SPRAY NS PRN ×2 (09:57→22:57)
[2023-10-18] MEDS: LISINOPRIL 5 MG TABLET PO SCH (09:57)
[2023-10-18] MEDS: TIMOLOL 0.5% OPHTHALMIC SOL 5 ML BOTTLE OU SCH ×2 (09:57→17:57)
[2023-10-18] MEDS: FAMOTIDINE 20 MG TABLET PO SCH (09:58)
[2023-10-18] MEDS: BUDESONIDE/FORMETEROL FUMARATE 160/4.5 mcg INHALER IH SCH ×2 (09:58→22:46)
[2023-10-18] MEDS: PRENATAL VITAMINS W/ FOLIC ACID TABLET (FP) PO SCH (09:58)
[2023-10-18] MEDS: ALBUTEROL SO4 HFA INHALER IH PRN ×3 (09:59→22:45)
[2023-10-18] MEDS: BACLOFEN 10 MG TABLET (FP) PO PRN ×2 (15:50→22:45)
[2023-10-18] MEDS: HYDROCORTISONE 1% TOPICAL CREAM 30 GM TUBE TP PRN (18:16)
[2023-10-18] MEDS: BENZOCAINE/MENTHOL (CHLORASEPTIC ) LOZENGE MM PRN (19:50)
[2023-10-18] MEDS: traZODone HCL 50 MG TABLET (FP) PO SCH (22:45)
[2023-10-18] MEDS: TAMSULOSIN HCL 0.4 MG CAP PO SCH (22:45)
[2023-10-18] MEDS: MELATONIN 5 MG TABLETS PO SCH (22:45)
[2023-10-18] MEDS: OLANZapine 5 MG TABLET PO SCH (22:45)
[2023-10-18] MEDS: THIAMINE HCL 100 MG TABLET (FP) PO SCH (22:45)
[2023-10-18] MEDS: METHYL SALICYLATE/MENTHOL OINT 30 GM TUBE TP SCH (22:46)
[2023-10-18] MEDS: LATANOPROST 0.005% OPHTH SOLN 2.5ML BOTTLE OU SCH (22:46)
[2023-10-18] MEDS: LIDOCAINE PATCH REMOVAL MC SCH (22:46)
[2023-10-19] MEDS ORDERED: chlordiazePOXIDE HCL 10 MG CAPSULE PO PRN
[2023-10-19] MEDS: chlordiazePOXIDE HCL 10 MG CAPSULE PO SCH ×5 (05:54→22:32)
[2023-10-19] MEDS: LACTULOSE 20 GM/30 ML UDC (FOR ORAL USE ONLY) PO SCH ×4 (06:05→22:43)
[2023-10-19] MEDS: TIMOLOL 0.5% OPHTHALMIC SOL 5 ML BOTTLE OU SCH ×2 (09:35→17:39)
[2023-10-19] MEDS: FLUTICASONE PROP 0.05% 16 GM NASAL SPRAY NS PRN ×2 (10:27→17:49)
[2023-10-19] MEDS: BUDESONIDE/FORMETEROL FUMARATE 160/4.5 mcg INHALER IH SCH ×2 (10:27→22:34)
[2023-10-19] MEDS: ALBUTEROL SO4 HFA INHALER IH PRN ×3 (10:28→22:34)
[2023-10-19] MEDS: LISINOPRIL 5 MG TABLET PO SCH (10:28)
[2023-10-19] MEDS: BACLOFEN 10 MG TABLET (FP) PO PRN ×2 (10:29→19:58)
[2023-10-19] MEDS: FAMOTIDINE 20 MG TABLET PO SCH (10:29)
[2023-10-19] MEDS: NICOTINE 21 MG/24 HOURS TOPICAL PATCH TD SCH (10:30)
[2023-10-19] MEDS: PRENATAL VITAMINS W/ FOLIC ACID TABLET (FP) PO SCH (10:30)
[2023-10-19] MEDS: METHYL SALICYLATE/MENTHOL OINT 30 GM TUBE TP SCH ×2 (10:41→22:33)
[2023-10-19] MEDS: HYDROCORTISONE 1% TOPICAL CREAM 30 GM TUBE TP PRN (18:02)
[2023-10-19] MEDS: LATANOPROST 0.005% OPHTH SOLN 2.5ML BOTTLE OU SCH (22:32)
[2023-10-19] MEDS: OLANZapine 5 MG TABLET PO SCH (22:33)
[2023-10-19] MEDS: THIAMINE HCL 100 MG TABLET (FP) PO SCH (22:33)
[2023-10-19] MEDS: traZODone HCL 50 MG TABLET (FP) PO SCH (22:33)
[2023-10-19] MEDS: MELATONIN 5 MG TABLETS PO SCH (22:33)
[2023-10-19] MEDS: TAMSULOSIN HCL 0.4 MG CAP PO SCH (22:33)
[2023-10-19] MEDS: LIDOCAINE PATCH REMOVAL MC SCH (22:44)
[2023-10-20] MEDS: chlordiazePOXIDE HCL 10 MG CAPSULE PO SCH ×2 (06:00→17:27)
[2023-10-20] MEDS: TIMOLOL 0.5% OPHTHALMIC SOL 5 ML BOTTLE OU SCH ×2 (09:40→17:28)
[2023-10-20] MEDS: FAMOTIDINE 20 MG TABLET PO SCH (10:55)
[2023-10-20] MEDS: PRENATAL VITAMINS W/ FOLIC ACID TABLET (FP) PO SCH (10:55)
[2023-10-20] MEDS: METHYL SALICYLATE/MENTHOL OINT 30 GM TUBE TP SCH ×2 (10:55→21:55)
[2023-10-20] MEDS: NICOTINE 21 MG/24 HOURS TOPICAL PATCH TD SCH (10:55)
[2023-10-20] MEDS: LISINOPRIL 5 MG TABLET PO SCH (10:55)
[2023-10-20] MEDS: BUDESONIDE/FORMETEROL FUMARATE 160/4.5 mcg INHALER IH SCH ×2 (10:55→21:36)
[2023-10-20] MEDS: LACTULOSE 20 GM/30 ML UDC (FOR ORAL USE ONLY) PO SCH ×4 (10:55→21:34)
[2023-10-20] MEDS: ALBUTEROL SO4 HFA INHALER IH PRN ×2 (11:13→21:36)
[2023-10-20] MEDS: HYDROCORTISONE 1% TOPICAL CREAM 30 GM TUBE TP PRN (20:31)
[2023-10-20] MEDS: traZODone HCL 50 MG TABLET (FP) PO SCH (21:34)
[2023-10-20] MEDS: THIAMINE HCL 100 MG TABLET (FP) PO SCH (21:34)
[2023-10-20] MEDS: MELATONIN 5 MG TABLETS PO SCH (21:34)
[2023-10-20] MEDS: TAMSULOSIN HCL 0.4 MG CAP PO SCH (21:34)
[2023-10-20] MEDS: OLANZapine 5 MG TABLET PO SCH (21:35)
[2023-10-20] MEDS: BACLOFEN 10 MG TABLET (FP) PO PRN (21:36)
[2023-10-20] MEDS: LATANOPROST 0.005% OPHTH SOLN 2.5ML BOTTLE OU SCH (21:55)
[2023-10-20] MEDS: LIDOCAINE PATCH REMOVAL MC SCH (22:55)
[2023-10-21] MEDS: chlordiazePOXIDE HCL 10 MG CAPSULE PO ONE ×2 (05:50→05:54)
[2023-10-21 08:46] VITALS: BP 109/69; PULSE 73; RESP 16; TEMP 97.5
[2023-10-21] MEDS: PRENATAL VITAMINS W/ FOLIC ACID TABLET (FP) PO SCH (10:37)
[2023-10-21] MEDS: BUDESONIDE/FORMETEROL FUMARATE 160/4.5 mcg INHALER IH SCH (10:37)
[2023-10-21] MEDS: ALBUTEROL SO4 HFA INHALER IH PRN (10:37)
[2023-10-21] MEDS: LISINOPRIL 5 MG TABLET PO SCH (10:38)
[2023-10-21] MEDS: FAMOTIDINE 20 MG TABLET PO SCH (10:38)
[2023-10-21] MEDS: TIMOLOL 0.5% OPHTHALMIC SOL 5 ML BOTTLE OU SCH (10:39)
[2023-10-21] MEDS: METHYL SALICYLATE/MENTHOL OINT 30 GM TUBE TP SCH (10:39)
[2023-10-21] MEDS: NICOTINE 21 MG/24 HOURS TOPICAL PATCH TD SCH (10:40)
[2023-10-21] MEDS: LACTULOSE 20 GM/30 ML UDC (FOR ORAL USE ONLY) PO SCH (10:40)
[2023-10-21] MEDS: FLUTICASONE PROP 0.05% 16 GM NASAL SPRAY NS PRN (10:46)
== END 2023-10-21 12:20 | disposition home or self-care (01) | DRG 774 ==
LOC: YASAS 10:40 → Y3N 16:19
PROVIDERS: ADMIT Allergy & Immunology; ATTEND Surgery
PROC: HZ2ZZZZ Detoxification Services for Substance Abuse Treatment (ICD-10-PCS; principal; 2023-10-16)
DX: F10.230 Alcohol dependence with withdrawal, uncomplicated (principal); F14.20 Cocaine dependence, uncomplicated; F12.20 Cannabis dependence, uncomplicated; F17.210 Nicotine dependence, cigarettes, uncomplicated; F25.1 Schizoaffective disorder, depressive type; F41.9 Anxiety disorder, unspecified; E72.20 Disorder of urea cycle metabolism, unspecified; I10 Essential (primary) hypertension; J43.0 Unilateral pulmonary emphysema [MacLeod's syndrome]; J45.20 Mild intermittent asthma, uncomplicated; K21.9 Gastro-esophageal reflux disease without esophagitis; H54.61 Unqualified visual loss, right eye, normal vision left eye; N40.0 Benign prostatic hyperplasia without lower urinary tract symptoms; R29.6 Repeated falls; Z99.89 Dependence on other enabling machines and devices; Z88.0 Allergy status to penicillin; Z88.8 Allergy status to other drugs, medicaments and biological substances
CPT/HCPCS: 36415; 80053; 80307; 82140; 85027; 86780; 87389; 87635; J0475

== ENCOUNTER 2023-11-07 16:26 | Inpatient (IN) | payer MEDICARE, OTHER ==
[2023-11-07 17:31] VITALS: BMI 20.2
[2023-11-07] MEDS ORDERED: NALOXONE HCL 0.4 MG/ML VIAL IM PRN (19:42)
[2023-11-07] MEDS ORDERED: MAG HYDROX/AL HYDROX/SIMETH 30 ML UNIT-DOSE CUP PO PRN (19:42)
[2023-11-07] MEDS ORDERED: NICOTINE POLACRILEX 4 MG GUM BUC PRN (19:42)
[2023-11-07] MEDS ORDERED: BENZONATATE 200 MG CAPSULE PO PRN (19:42)
[2023-11-07] MEDS ORDERED: BISMUTH SUBSALICYLATE 524 MG/30 ML PO PRN (19:42)
[2023-11-07] MEDS ORDERED: ONDANSETRON *ODT* 4 MG TABLET SL PRN (19:42)
[2023-11-07] MEDS ORDERED: IBUPROFEN 600 MG TABLET (FP) PO PRN (19:42)
[2023-11-07] MEDS ORDERED: MAGNESIUM HYDROX 2400MG/30ML ORAL SUSPENSION 30 ML CUP PO PRN (19:42)
[2023-11-07] MEDS ORDERED: NALOXONE HCL (KLOXXADO) 8 MG SPRAY NS PRN (19:42)
[2023-11-07] MEDS ORDERED: guaiFENesin 600 MG TABLET.ER (FP) PO PRN (19:42)
[2023-11-07] MEDS ORDERED: BENZOCAINE/MENTHOL (CHLORASEPTIC ) LOZENGE MM PRN (19:42)
[2023-11-07] MEDS ORDERED: ACETAMINOPHEN 325 MG TABLET (FP) PO PRN (19:42)
[2023-11-07] MEDS ORDERED: IBUPROFEN 400 MG TABLET (FP) PO PRN (19:42)
[2023-11-07] MEDS ORDERED: POLYETHYLENE GLYCOL (HEALTHYLAX) 3350 17 GM PACKET PO PRN (19:42)
[2023-11-07] MEDS ORDERED: LOPERAMIDE HCL 2 MG CAPSULE PO PRN (19:42)
[2023-11-07] MEDS: MELATONIN 5 MG TABLETS PO SCH (21:55)
[2023-11-07] MEDS: THIAMINE HCL 100 MG TABLET (FP) PO SCH (21:55)
[2023-11-08] MEDS ORDERED: diazePAM 5 MG TABLET PO PRN (07:44)
[2023-11-08] MEDS: BUDESONIDE/FORMETEROL FUMARATE 160/4.5 mcg INHALER IH SCH ×2 (10:33→22:06)
[2023-11-08] MEDS: LISINOPRIL 5 MG TABLET PO SCH (10:34)
[2023-11-08] MEDS: PRENATAL VITAMINS W/ FOLIC ACID TABLET (FP) PO SCH (10:34)
[2023-11-08] MEDS: TIMOLOL 0.5% OPHTHALMIC SOL 5 ML BOTTLE OU SCH ×2 (10:34→22:07)
[2023-11-08] MEDS: METHOCARBAMOL 500 MG TABLET PO PRN (10:51)
[2023-11-08] MEDS: hydrOXYzine PAMOATE 25 MG CAPSULE (FP) PO PRN (10:51)
[2023-11-08] MEDS: diazePAM 5 MG TABLET PO SCH ×3 (10:51→22:07)
[2023-11-08] MEDS: FLUTICASONE PROP 0.05% 16 GM NASAL SPRAY NS PRN ×2 (10:51→22:11)
[2023-11-08] MEDS: NICOTINE 21 MG/24 HOURS TOPICAL PATCH TD SCH (10:53)
[2023-11-08] MEDS ORDERED: COLLOIDAL OATMEAL 1 BAR EACH TP PRN (11:20)
[2023-11-08 11:42] LABS: CHLORIDE 103 mmol/L (98-107); POTASSIUM 3.5 mmol/L (3.5-5.1); SODIUM 141 mmol/L (136-145)
[2023-11-08 11:46] LABS: CALCIUM 8.8 mg/dL (8.5-10.1)
[2023-11-08 11:47] LABS: ALBUMIN 3.7 g/dl (3.4-5.0); ANION GAP 8 mmol/L (4-13); BLOOD UREA NITROGEN 12.2 mg/dL (7-18); CO2 31 mmol/L (21-32); GLUCOSE,RANDOM 94 mg/dL (74-106)
[2023-11-08 11:50] LABS: SGOT/AST 38 U/L (15-37); SGPT/ALT 29 U/L (13-61)
[2023-11-08 11:52] LABS: BILIRUBIN,TOTAL 1.1 mg/dL (0.2-1); TOT PROT 7.2 g/dl (6.4-8.2)
[2023-11-08 11:53] LABS: ALK PHOS 121 U/L (45-117)
[2023-11-08 12:10] LABS: HEMATOCRIT 37.4 % (35.4-49); HEMOGLOBIN 12.3 GM/dL (11.7-16.9); MCH 28.5 pg (25.7-33.7); MCHC 32.9 g/dl (32.0-35.9); MEAN CELL VOLUME 86.8 fl (80-96); MEAN PLT VOLUME 9.1 fl (7.5-11.1); PLATELET COUNT 167 10^3/uL (134-434); RBC 4.31 M/mm3 (4.00-5.60); RDW 16.2 % (11.9-15.9); WHITE BLOOD COUNT 4.5 K/mm3 (4.0-10.0)
[2023-11-08] MEDS: FAMOTIDINE 20 MG TABLET PO SCH (12:15)
[2023-11-08] MEDS ORDERED: OLANZapine 5 MG TABLET PO SCH (22:00)
[2023-11-08] MEDS: TAMSULOSIN HCL 0.4 MG CAP PO SCH (22:06)
[2023-11-08] MEDS: THIAMINE HCL 100 MG TABLET (FP) PO SCH (22:06)
[2023-11-08] MEDS: traZODone HCL 50 MG TABLET (FP) PO SCH (22:06)
[2023-11-08] MEDS: OLANZapine 5 MG TABLET PO SCH (22:06)
[2023-11-08] MEDS: LATANOPROST 0.005% OPHTH SOLN 2.5ML BOTTLE OU SCH (22:32)
[2023-11-08] MEDS: MELATONIN 5 MG TABLETS PO SCH (22:32)
[2023-11-09] MEDS: diazePAM 5 MG TABLET PO SCH ×4 (05:50→22:03)
[2023-11-09] MEDS: ALBUTEROL SO4 HFA INHALER IH PRN (05:56)
[2023-11-09] MEDS: LISINOPRIL 5 MG TABLET PO SCH (10:21)
[2023-11-09] MEDS: NICOTINE 21 MG/24 HOURS TOPICAL PATCH TD SCH (10:21)
[2023-11-09] MEDS: FAMOTIDINE 20 MG TABLET PO SCH (10:22)
[2023-11-09] MEDS: TIMOLOL 0.5% OPHTHALMIC SOL 5 ML BOTTLE OU SCH ×2 (10:23→22:03)
[2023-11-09] MEDS: PRENATAL VITAMINS W/ FOLIC ACID TABLET (FP) PO SCH (10:24)
[2023-11-09] MEDS: BUDESONIDE/FORMETEROL FUMARATE 160/4.5 mcg INHALER IH SCH ×2 (10:24→22:03)
[2023-11-09] MEDS: FLUTICASONE PROP 0.05% 16 GM NASAL SPRAY NS PRN ×2 (10:25→22:03)
[2023-11-09 17:12] LABS: INR 1.02 (0.83-1.09); PROTHROMBIN TIME (PATIENT) 11.8 SEC (9.7-13.0)
[2023-11-09] MEDS: TAMSULOSIN HCL 0.4 MG CAP PO SCH (22:03)
[2023-11-09] MEDS: traZODone HCL 50 MG TABLET (FP) PO SCH (22:03)
[2023-11-09] MEDS: THIAMINE HCL 100 MG TABLET (FP) PO SCH (22:03)
[2023-11-09] MEDS: OLANZapine 5 MG TABLET PO SCH (22:03)
[2023-11-09] MEDS: LATANOPROST 0.005% OPHTH SOLN 2.5ML BOTTLE OU SCH (22:04)
[2023-11-09] MEDS: MELATONIN 5 MG TABLETS PO SCH (22:57)
[2023-11-09] MEDS: ASPIRIN 81 MG CHEWABLE TABLETS PO SCH (23:00)
[2023-11-09] MEDS: ALBUTEROL SO4 2.5/IPRATROPIUM 0.5 INH SOL 3 ML VIAL.NEB. NEB SCH (23:01)
[2023-11-09] MEDS ORDERED: guaiFENesin 200 MG/10 ML 10 ML UNIT-DOSE CUPS PO ONE (23:30)
[2023-11-10] MEDS ORDERED: guaiFENesin 200 MG/10 ML 10 ML UNIT-DOSE CUPS PO PRN (03:30)
[2023-11-10] MEDS: diazePAM 5 MG TABLET PO SCH ×3 (06:00→23:03)
[2023-11-10] MEDS: ALBUTEROL SO4 2.5/IPRATROPIUM 0.5 INH SOL 3 ML VIAL.NEB. NEB SCH ×3 (06:00→18:36)
[2023-11-10] MEDS: BUDESONIDE/FORMETEROL FUMARATE 160/4.5 mcg INHALER IH SCH ×2 (10:29→22:09)
[2023-11-10] MEDS: FLUTICASONE PROP 0.05% 16 GM NASAL SPRAY NS PRN ×2 (10:29→23:11)
[2023-11-10] MEDS: LISINOPRIL 5 MG TABLET PO SCH (10:30)
[2023-11-10] MEDS: ASPIRIN 81 MG CHEWABLE TABLETS PO SCH (10:30)
[2023-11-10] MEDS: FAMOTIDINE 20 MG TABLET PO SCH (10:31)
[2023-11-10] MEDS: TIMOLOL 0.5% OPHTHALMIC SOL 5 ML BOTTLE OU SCH (10:32)
[2023-11-10] MEDS: NICOTINE 21 MG/24 HOURS TOPICAL PATCH TD SCH (10:45)
[2023-11-10] MEDS: PRENATAL VITAMINS W/ FOLIC ACID TABLET (FP) PO SCH (10:46)
[2023-11-10] MEDS: ARTIFICIAL TEARS (POLYVINYL ALCOHOL) OPTH DROPS OU SCH ×2 (12:12→23:00)
[2023-11-10] MEDS ORDERED: TIMOLOL 0.5% OPHTHALMIC SOL 5 ML BOTTLE OU ONE (17:00)
[2023-11-10] MEDS: ALBUTEROL SO4 HFA INHALER IH PRN ×2 (18:21→23:11)
[2023-11-10] MEDS: OLANZapine 5 MG TABLET PO SCH (23:00)
[2023-11-10] MEDS: traZODone HCL 50 MG TABLET (FP) PO SCH (23:02)
[2023-11-10] MEDS: METHOCARBAMOL 500 MG TABLET PO PRN (23:03)
[2023-11-10] MEDS: TAMSULOSIN HCL 0.4 MG CAP PO SCH (23:03)
[2023-11-10] MEDS: hydrOXYzine PAMOATE 25 MG CAPSULE (FP) PO PRN (23:03)
[2023-11-10] MEDS: THIAMINE HCL 100 MG TABLET (FP) PO SCH (23:03)
[2023-11-10] MEDS: LATANOPROST 0.005% OPHTH SOLN 2.5ML BOTTLE OU SCH (23:11)
[2023-11-10] MEDS: MELATONIN 5 MG TABLETS PO SCH (23:14)
[2023-11-10] MEDS: LACTULOSE 20 GM/30 ML UDC (FOR ORAL USE ONLY) PO SCH (23:38)
[2023-11-11] MEDS ORDERED: diazePAM 5 MG TABLET PO SCH (06:00)
[2023-11-11] MEDS ORDERED: TIMOLOL 0.5% OPHTHALMIC SOL 5 ML BOTTLE OU SCH (10:00)
[2023-11-11] MEDS: ARTIFICIAL TEARS (POLYVINYL ALCOHOL) OPTH DROPS OU SCH (10:04)
[2023-11-11] MEDS: FAMOTIDINE 20 MG TABLET PO SCH (10:05)
[2023-11-11] MEDS: LISINOPRIL 5 MG TABLET PO SCH (10:05)
[2023-11-11] MEDS: NICOTINE 21 MG/24 HOURS TOPICAL PATCH TD SCH (10:05)
[2023-11-11] MEDS: LACTULOSE 20 GM/30 ML UDC (FOR ORAL USE ONLY) PO SCH ×2 (10:05→13:51)
[2023-11-11] MEDS: ASPIRIN 81 MG CHEWABLE TABLETS PO SCH (10:05)
[2023-11-11] MEDS: PRENATAL VITAMINS W/ FOLIC ACID TABLET (FP) PO SCH (10:05)
[2023-11-11] MEDS: BUDESONIDE/FORMETEROL FUMARATE 160/4.5 mcg INHALER IH SCH (10:06)
[2023-11-11] MEDS: FLUTICASONE PROP 0.05% 16 GM NASAL SPRAY NS PRN (10:12)
[2023-11-11] MEDS: ALBUTEROL SO4 HFA INHALER IH PRN (10:13)
[2023-11-11 13:16] VITALS: BP 97/60; PULSE 86; RESP 18; TEMP 97.3
[2023-11-12] MEDS ORDERED: diazePAM 5 MG TABLET PO ONE (06:00)
== END 2023-11-11 15:25 | disposition home or self-care (01) | DRG 897 ==
LOC: YASAS 16:26 → Y6N 21:31 → UNDOADMIN 21:31 → Y6N 21:32
PROVIDERS: ADMIT Allergy & Immunology; ATTEND Psychiatry & Neurology Pain Medicine
PROC: HZ2ZZZZ Detoxification Services for Substance Abuse Treatment (ICD-10-PCS; principal; 2023-11-07)
DX: F10.230 Alcohol dependence with withdrawal, uncomplicated (principal); F14.20 Cocaine dependence, uncomplicated; F19.282 Other psychoactive substance dependence with psychoactive substance-induced sleep disorder; E72.20 Disorder of urea cycle metabolism, unspecified; F20.0 Paranoid schizophrenia; F12.20 Cannabis dependence, uncomplicated; F17.210 Nicotine dependence, cigarettes, uncomplicated; F19.24 Other psychoactive substance dependence with psychoactive substance-induced mood disorder; J44.9 Chronic obstructive pulmonary disease, unspecified; J45.20 Mild intermittent asthma, uncomplicated; I10 Essential (primary) hypertension; I83.893 Varicose veins of bilateral lower extremities with other complications; N40.0 Benign prostatic hyperplasia without lower urinary tract symptoms; Z87.11 Personal history of peptic ulcer disease; Z99.89 Dependence on other enabling machines and devices; Z88.0 Allergy status to penicillin; Z88.8 Allergy status to other drugs, medicaments and biological substances
CPT/HCPCS: 36415; 80053; 80307; 82140; 85027; 85610; 86780; 87635; 94640; Q0162

== ENCOUNTER 2023-12-24 14:22 | Inpatient (IN) | payer MEDICARE, OTHER ==
[2023-12-24 15:38] VITALS: BMI 23.9
[2023-12-24] MEDS ORDERED: LOPERAMIDE HCL 2 MG CAPSULE PO PRN (16:33)
[2023-12-24] MEDS ORDERED: guaiFENesin 600 MG TABLET.ER (FP) PO PRN (16:33)
[2023-12-24] MEDS ORDERED: POLYETHYLENE GLYCOL (HEALTHYLAX) 3350 17 GM PACKET PO PRN (16:33)
[2023-12-24] MEDS ORDERED: BENZONATATE 200 MG CAPSULE PO PRN (16:33)
[2023-12-24] MEDS ORDERED: P-EPHED 60MG/TRIPROLIDI 2.5MG TABLET PO PRN (16:33)
[2023-12-24] MEDS ORDERED: MAG HYDROX/AL HYDROX/SIMETH 30 ML UNIT-DOSE CUP PO PRN (16:33)
[2023-12-24] MEDS ORDERED: MAGNESIUM HYDROX 2400MG/30ML ORAL SUSPENSION 30 ML CUP PO PRN (16:33)
[2023-12-24] MEDS ORDERED: BENZOCAINE/MENTHOL (CHLORASEPTIC ) LOZENGE MM PRN (16:33)
[2023-12-24] MEDS: diphenhydrAMINE HCL 25 MG CAPSULE (FP) PO PRN (18:11)
[2023-12-24] MEDS ORDERED: TIMOLOL 0.5% OPHTHALMIC SOL 5 ML BOTTLE OU SCH (22:00)
[2023-12-24] MEDS: THIAMINE HCL 100 MG TABLET (FP) PO SCH (22:37)
[2023-12-24] MEDS: TAMSULOSIN HCL 0.4 MG CAP PO SCH (22:37)
[2023-12-24] MEDS: MELATONIN 5 MG TABLETS PO SCH (22:38)
[2023-12-24] MEDS: TIMOLOL 0.5% OPHTHALMIC SOL 5 ML BOTTLE OU SCH ×2 (22:38→22:50)
[2023-12-24] MEDS: BUDESONIDE/FORMETEROL FUMARATE 160/4.5 mcg INHALER IH SCH (22:40)
[2023-12-24] MEDS: LATANOPROST 0.005% OPHTH SOLN 2.5ML BOTTLE OU SCH (22:41)
[2023-12-25] MEDS: ONDANSETRON *ODT* 4 MG TABLET SL PRN ×2 (00:48→12:32)
[2023-12-25] MEDS: diphenhydrAMINE HCL 25 MG CAPSULE (FP) PO PRN (07:38)
[2023-12-25] MEDS ORDERED: diazePAM 5 MG TABLET PO PRN (10:02)
[2023-12-25] MEDS: FAMOTIDINE 20 MG TABLET PO SCH (10:27)
[2023-12-25] MEDS: PRENATAL VITAMINS W/ FOLIC ACID TABLET (FP) PO SCH (10:27)
[2023-12-25] MEDS: TIMOLOL 0.5% OPHTHALMIC SOL 5 ML BOTTLE OU SCH ×2 (10:28→17:22)
[2023-12-25] MEDS: BUDESONIDE/FORMETEROL FUMARATE 160/4.5 mcg INHALER IH SCH ×2 (10:28→21:59)
[2023-12-25] MEDS: diazePAM 5 MG TABLET PO SCH ×3 (10:35→22:00)
[2023-12-25] MEDS: ACETAMINOPHEN 325 MG TABLET (FP) PO PRN ×2 (10:37→17:23)
[2023-12-25] MEDS: LIDOCAINE 4% PATCH TP SCH (14:48)
[2023-12-25] MEDS: traZODone HCL 50 MG TABLET (FP) PO SCH (21:55)
[2023-12-25] MEDS: TAMSULOSIN HCL 0.4 MG CAP PO SCH (21:55)
[2023-12-25] MEDS: THIAMINE HCL 100 MG TABLET (FP) PO SCH (21:55)
[2023-12-25] MEDS: OLANZapine 5 MG TABLET PO SCH (21:55)
[2023-12-25] MEDS: LIDOCAINE PATCH REMOVAL MC SCH (21:56)
[2023-12-25] MEDS: LATANOPROST 0.005% OPHTH SOLN 2.5ML BOTTLE OU SCH (21:59)
[2023-12-25] MEDS: ALBUTEROL SO4 HFA INHALER IH PRN (22:07)
[2023-12-25] MEDS: MELATONIN 5 MG TABLETS PO SCH (23:08)
[2023-12-26] MEDS: diazePAM 5 MG TABLET PO SCH ×4 (05:33→22:05)
[2023-12-26] MEDS: PRENATAL VITAMINS W/ FOLIC ACID TABLET (FP) PO SCH (10:45)
[2023-12-26] MEDS: FAMOTIDINE 20 MG TABLET PO SCH (10:46)
[2023-12-26] MEDS: ALBUTEROL SO4 HFA INHALER IH PRN (10:46)
[2023-12-26] MEDS: TIMOLOL 0.5% OPHTHALMIC SOL 5 ML BOTTLE OU SCH ×2 (10:47→17:05)
[2023-12-26] MEDS: BUDESONIDE/FORMETEROL FUMARATE 160/4.5 mcg INHALER IH SCH ×2 (10:49→22:06)
[2023-12-26] MEDS: LIDOCAINE 4% PATCH TP SCH (10:50)
[2023-12-26] MEDS: ACETAMINOPHEN 325 MG TABLET (FP) PO PRN ×2 (11:11→17:12)
[2023-12-26] MEDS ORDERED: METHOCARBAMOL 500 MG TABLET PO PRN (11:30)
[2023-12-26] MEDS ORDERED: ACETAMINOPHEN 325 MG TABLET (FP) PO PRN (11:32)
[2023-12-26] MEDS: BACLOFEN 10 MG TABLET (FP) PO SCH ×2 (15:04→22:06)
[2023-12-26] MEDS: traZODone HCL 50 MG TABLET (FP) PO SCH (22:05)
[2023-12-26] MEDS: TAMSULOSIN HCL 0.4 MG CAP PO SCH (22:05)
[2023-12-26] MEDS: THIAMINE HCL 100 MG TABLET (FP) PO SCH (22:05)
[2023-12-26] MEDS: LATANOPROST 0.005% OPHTH SOLN 2.5ML BOTTLE OU SCH (22:06)
[2023-12-26] MEDS: LIDOCAINE PATCH REMOVAL MC SCH (22:06)
[2023-12-26] MEDS: MELATONIN 5 MG TABLETS PO SCH (22:06)
[2023-12-26] MEDS: OLANZapine 5 MG TABLET PO SCH (22:08)
[2023-12-27] MEDS: BACLOFEN 10 MG TABLET (FP) PO SCH ×3 (05:43→22:37)
[2023-12-27] MEDS: diazePAM 5 MG TABLET PO SCH ×3 (05:43→22:29)
[2023-12-27] MEDS: FLUTICASONE PROP 0.05% 16 GM NASAL SPRAY NS PRN ×2 (05:49→10:52)
[2023-12-27] MEDS: TETRAHYDROZOLINE HCL EYE DROPS OU PRN ×2 (05:50→22:56)
[2023-12-27] MEDS: FAMOTIDINE 20 MG TABLET PO SCH (10:39)
[2023-12-27] MEDS: LIDOCAINE 4% PATCH TP SCH (10:39)
[2023-12-27] MEDS: PRENATAL VITAMINS W/ FOLIC ACID TABLET (FP) PO SCH (10:40)
[2023-12-27] MEDS: TIMOLOL 0.5% OPHTHALMIC SOL 5 ML BOTTLE OU SCH ×2 (10:41→17:33)
[2023-12-27] MEDS: BUDESONIDE/FORMETEROL FUMARATE 160/4.5 mcg INHALER IH SCH ×2 (10:41→22:55)
[2023-12-27] MEDS: ALBUTEROL SO4 HFA INHALER IH PRN ×2 (10:52→22:56)
[2023-12-27] MEDS: ACETAMINOPHEN 325 MG TABLET (FP) PO PRN (15:45)
[2023-12-27] MEDS: MELATONIN 5 MG TABLETS PO SCH (22:29)
[2023-12-27] MEDS: TAMSULOSIN HCL 0.4 MG CAP PO SCH (22:29)
[2023-12-27] MEDS: THIAMINE HCL 100 MG TABLET (FP) PO SCH (22:29)
[2023-12-27] MEDS: LIDOCAINE PATCH REMOVAL MC SCH (22:29)
[2023-12-27] MEDS: LATANOPROST 0.005% OPHTH SOLN 2.5ML BOTTLE OU SCH (22:30)
[2023-12-27] MEDS: traZODone HCL 50 MG TABLET (FP) PO SCH (22:55)
[2023-12-27] MEDS: OLANZapine 5 MG TABLET PO SCH (22:56)
[2023-12-28] MEDS: diazePAM 5 MG TABLET PO SCH ×2 (05:26→17:15)
[2023-12-28] MEDS: BACLOFEN 10 MG TABLET (FP) PO SCH ×3 (05:26→22:24)
[2023-12-28] MEDS: FLUTICASONE PROP 0.05% 16 GM NASAL SPRAY NS PRN ×2 (09:33→22:26)
[2023-12-28] MEDS: FAMOTIDINE 20 MG TABLET PO SCH (09:33)
[2023-12-28] MEDS: PRENATAL VITAMINS W/ FOLIC ACID TABLET (FP) PO SCH (09:33)
[2023-12-28] MEDS: TIMOLOL 0.5% OPHTHALMIC SOL 5 ML BOTTLE OU SCH ×2 (09:33→17:16)
[2023-12-28] MEDS: BUDESONIDE/FORMETEROL FUMARATE 160/4.5 mcg INHALER IH SCH ×2 (09:34→22:25)
[2023-12-28] MEDS: LIDOCAINE 4% PATCH TP SCH (09:34)
[2023-12-28] MEDS: ALBUTEROL SO4 HFA INHALER IH PRN ×2 (09:43→22:26)
[2023-12-28] MEDS: TETRAHYDROZOLINE HCL EYE DROPS OU PRN ×2 (09:44→17:24)
[2023-12-28] MEDS: ACETAMINOPHEN 325 MG TABLET (FP) PO PRN (12:50)
[2023-12-28 13:20] VITALS: RESP 16
[2023-12-28] MEDS: traZODone HCL 50 MG TABLET (FP) PO SCH (22:24)
[2023-12-28] MEDS: THIAMINE HCL 100 MG TABLET (FP) PO SCH (22:24)
[2023-12-28] MEDS: diphenhydrAMINE HCL 25 MG CAPSULE (FP) PO PRN (22:24)
[2023-12-28] MEDS: TAMSULOSIN HCL 0.4 MG CAP PO SCH (22:24)
[2023-12-28] MEDS: OLANZapine 5 MG TABLET PO SCH (22:24)
[2023-12-28] MEDS: LATANOPROST 0.005% OPHTH SOLN 2.5ML BOTTLE OU SCH (22:25)
[2023-12-28] MEDS: MELATONIN 5 MG TABLETS PO SCH (22:25)
[2023-12-28] MEDS: LIDOCAINE PATCH REMOVAL MC SCH (22:25)
[2023-12-29] MEDS: BACLOFEN 10 MG TABLET (FP) PO SCH (05:30)
[2023-12-29] MEDS: ALBUTEROL SO4 HFA INHALER IH PRN (05:32)
[2023-12-29] MEDS ORDERED: diazePAM 5 MG TABLET PO ONE (06:00)
[2023-12-29 09:04] VITALS: BP 119/72; PULSE 87; TEMP 98
[2023-12-29] MEDS: LIDOCAINE 4% PATCH TP SCH (10:03)
[2023-12-29] MEDS: FAMOTIDINE 20 MG TABLET PO SCH (10:49)
[2023-12-29] MEDS: BUDESONIDE/FORMETEROL FUMARATE 160/4.5 mcg INHALER IH SCH (10:50)
[2023-12-29] MEDS: PRENATAL VITAMINS W/ FOLIC ACID TABLET (FP) PO SCH (10:50)
[2023-12-29] MEDS: TIMOLOL 0.5% OPHTHALMIC SOL 5 ML BOTTLE OU SCH (10:51)
== END 2023-12-29 10:27 | disposition home or self-care (01) | DRG 897 ==
LOC: YASAS 14:22 → Y6N 17:39
PROVIDERS: ADMIT Allergy & Immunology; ATTEND Allergy & Immunology
DX: F10.230 Alcohol dependence with withdrawal, uncomplicated (principal); F14.20 Cocaine dependence, uncomplicated; F17.210 Nicotine dependence, cigarettes, uncomplicated; I10 Essential (primary) hypertension; J43.0 Unilateral pulmonary emphysema [MacLeod's syndrome]; J45.20 Mild intermittent asthma, uncomplicated; H54.61 Unqualified visual loss, right eye, normal vision left eye; M19.90 Unspecified osteoarthritis, unspecified site; N40.0 Benign prostatic hyperplasia without lower urinary tract symptoms; Z87.11 Personal history of peptic ulcer disease; Z86.19 Personal history of other infectious and parasitic diseases; Z99.89 Dependence on other enabling machines and devices; Z91.410 Personal history of adult physical and sexual abuse; Z63.0 Problems in relationship with spouse or partner; Z88.0 Allergy status to penicillin; Z88.8 Allergy status to other drugs, medicaments and biological substances
CPT/HCPCS: 87635; J0475; Q0162

== ENCOUNTER 2024-01-12 21:46 | Inpatient (IN) | payer MEDICARE, OTHER ==
[2024-01-12 22:58] VITALS: BMI 23.6
[2024-01-12] MEDS ORDERED: ACETAMINOPHEN 325 MG TABLET (FP) PO PRN (23:36)
[2024-01-12] MEDS ORDERED: POLYETHYLENE GLYCOL (HEALTHYLAX) 3350 17 GM PACKET PO PRN (23:36)
[2024-01-12] MEDS ORDERED: DICYCLOMINE HCL 10 MG CAPSULE PO PRN (23:36)
[2024-01-12] MEDS ORDERED: NALOXONE HCL 0.4 MG/ML VIAL IM PRN (23:36)
[2024-01-12] MEDS ORDERED: LOPERAMIDE HCL 2 MG CAPSULE PO PRN (23:36)
[2024-01-12] MEDS ORDERED: BENZONATATE 200 MG CAPSULE PO PRN (23:36)
[2024-01-12] MEDS ORDERED: MAG HYDROX/AL HYDROX/SIMETH 30 ML UNIT-DOSE CUP PO PRN (23:36)
[2024-01-12] MEDS ORDERED: NALOXONE HCL (KLOXXADO) 8 MG SPRAY NS PRN (23:36)
[2024-01-12] MEDS ORDERED: BENZOCAINE/MENTHOL (CHLORASEPTIC ) LOZENGE MM PRN (23:36)
[2024-01-12] MEDS ORDERED: NICOTINE POLACRILEX 4 MG GUM BUC PRN (23:36)
[2024-01-12] MEDS ORDERED: guaiFENesin 600 MG TABLET.ER (FP) PO PRN (23:36)
[2024-01-13] MEDS: TAMSULOSIN HCL 0.4 MG CAP PO SCH (09:41)
[2024-01-13] MEDS: BUDESONIDE/FORMETEROL FUMARATE 160/4.5 mcg INHALER IH SCH (09:53)
[2024-01-13] MEDS: LISINOPRIL 5 MG TABLET PO SCH (09:54)
[2024-01-13] MEDS: PRENATAL VITAMINS W/ FOLIC ACID TABLET (FP) PO SCH (09:54)
[2024-01-13] MEDS: FAMOTIDINE 20 MG TABLET PO SCH (09:54)
[2024-01-13] MEDS: NICOTINE 21 MG/24 HOURS TOPICAL PATCH TD SCH (09:59)
[2024-01-13] MEDS: diphenhydrAMINE HCL 25 MG CAPSULE (FP) PO ONE (11:53)
[2024-01-13] MEDS: TIMOLOL 0.5% OPHTHALMIC SOL 5 ML BOTTLE OU SCH (11:55)
[2024-01-13] MEDS: traZODone HCL 50 MG TABLET (FP) PO SCH (22:47)
[2024-01-13] MEDS: THIAMINE HCL 100 MG TABLET (FP) PO SCH (22:47)
[2024-01-13] MEDS: MELATONIN 5 MG TABLETS PO SCH (22:47)
[2024-01-13] MEDS: OLANZapine 5 MG TABLET PO SCH (22:50)
[2024-01-13] MEDS: ALBUTEROL SO4 HFA INHALER IH PRN (22:53)
[2024-01-13] MEDS: LATANOPROST 0.005% OPHTH SOLN 2.5ML BOTTLE OU SCH (22:57)
[2024-01-14] MEDS: TIMOLOL 0.5% OPHTHALMIC SOL 5 ML BOTTLE OU SCH (09:52)
[2024-01-14] MEDS: diazePAM 5 MG TABLET PO ONE ×2 (15:35→15:37)
[2024-01-15] MEDS ORDERED: diazePAM 5 MG TABLET PO PRN (10:40)
[2024-01-15] MEDS: diazePAM 5 MG TABLET PO SCH (11:22)
[2024-01-15] MEDS: COLLOIDAL OATMEAL 1 EACH PACKET TP SCH (15:51)
[2024-01-15] MEDS: ARTIFICIAL TEARS OPHTHALMIC DROPS OU PRN (17:44)
[2024-01-15] MEDS: FLUTICASONE PROP 0.05% 16 GM NASAL SPRAY NS SCH (18:35)
[2024-01-15] MEDS: MAGNESIUM HYDROX 2400MG/30ML ORAL SUSPENSION 30 ML CUP PO PRN (20:52)
[2024-01-15] MEDS: ONDANSETRON *ODT* 4 MG TABLET SL PRN (21:31)
[2024-01-17] MEDS: diazePAM 5 MG TABLET PO SCH (06:06)
[2024-01-18] MEDS: diazePAM 5 MG TABLET PO SCH (05:57)
[2024-01-19] MEDS: diazePAM 5 MG TABLET PO ONE (05:51)
[2024-01-19 06:52] VITALS: RESP 16
[2024-01-19 09:52] VITALS: BP 130/77; PULSE 84; TEMP 98
== END 2024-01-19 13:22 | disposition home or self-care (01) | DRG 897 ==
LOC: YASAS 21:46 → Y3N 01-13 02:17
PROVIDERS: ADMIT Allergy & Immunology; ATTEND Surgery
PROC: HZ2ZZZZ Detoxification Services for Substance Abuse Treatment (ICD-10-PCS; principal; 2024-01-13)
DX: F10.230 Alcohol dependence with withdrawal, uncomplicated (principal); F14.20 Cocaine dependence, uncomplicated; F12.20 Cannabis dependence, uncomplicated; F17.210 Nicotine dependence, cigarettes, uncomplicated; F19.24 Other psychoactive substance dependence with psychoactive substance-induced mood disorder; F25.1 Schizoaffective disorder, depressive type; F41.9 Anxiety disorder, unspecified; F32.A Depression, unspecified; H40.9 Unspecified glaucoma; H54.61 Unqualified visual loss, right eye, normal vision left eye; I10 Essential (primary) hypertension; J44.9 Chronic obstructive pulmonary disease, unspecified; K21.9 Gastro-esophageal reflux disease without esophagitis; N40.0 Benign prostatic hyperplasia without lower urinary tract symptoms; Z88.0 Allergy status to penicillin; Z88.8 Allergy status to other drugs, medicaments and biological substances; Z91.410 Personal history of adult physical and sexual abuse; Z63.0 Problems in relationship with spouse or partner
CPT/HCPCS: 80305; 87635; Q0162

== ENCOUNTER 2024-07-22 21:11 | Inpatient (IN) | payer OTHER ==
[2024-07-22 21:46] VITALS: BMI 21.7
[2024-07-22] MEDS ORDERED: BENZOCAINE/MENTHOL (CHLORASEPTIC ) LOZENGE MM PRN (22:11)
[2024-07-22] MEDS ORDERED: NICOTINE POLACRILEX 2 MG GUM BUC PRN (22:11)
[2024-07-22] MEDS ORDERED: BENZONATATE 200 MG CAPSULE PO PRN (22:11)
[2024-07-22] MEDS ORDERED: LOPERAMIDE HCL 2 MG CAPSULE PO PRN (22:11)
[2024-07-22] MEDS ORDERED: POLYETHYLENE GLYCOL (HEALTHYLAX) 3350 17 GM PACKET PO PRN (22:11)
[2024-07-22] MEDS ORDERED: NICOTINE POLACRILEX 2 MG LOZENGE BC PRN (22:11)
[2024-07-22] MEDS ORDERED: P-EPHED 60MG/TRIPROLIDI 2.5MG TABLET PO PRN (22:11)
[2024-07-22] MEDS ORDERED: guaiFENesin 600 MG TABLET.ER (FP) PO PRN (22:11)
[2024-07-23] MEDS: TIMOLOL 0.5% OPHTHALMIC SOL 5 ML BOTTLE OU SCH ×2 (02:12→17:34)
[2024-07-23] MEDS: LATANOPROST 0.005% OPHTH SOLN 2.5ML BOTTLE OU SCH (02:12)
[2024-07-23] MEDS: TAMSULOSIN HCL 0.4 MG CAP PO SCH (02:12)
[2024-07-23] MEDS: diphenhydrAMINE HCL 25 MG CAPSULE (FP) PO ONE ×2 (02:13→11:38)
[2024-07-23] MEDS: BUDESONIDE/FORMETEROL FUMARATE 160/4.5 mcg INHALER IH SCH (02:13)
[2024-07-23] MEDS: TRIMETHOBENZAMIDE HCL 200MG/2ML INJ IM ONE (08:51)
[2024-07-23] MEDS ORDERED: diazePAM 5 MG TABLET PO PRN (10:42)
[2024-07-23] MEDS: FAMOTIDINE 20 MG TABLET PO SCH (10:53)
[2024-07-23] MEDS: LISINOPRIL 5 MG TABLET PO SCH (10:53)
[2024-07-23] MEDS: NICOTINE 7 MG/24 HOURS TOPICAL PATCH TD SCH (10:53)
[2024-07-23] MEDS: PRENATAL VITAMINS W/ FOLIC ACID TABLET (FP) PO SCH (10:57)
[2024-07-23] MEDS: diazePAM 5 MG TABLET PO SCH (10:59)
[2024-07-23] MEDS: ALBUTEROL SO4 HFA INHALER IH PRN (11:37)
[2024-07-23] MEDS: FLUTICASONE PROP 0.05% 16 GM NASAL SPRAY NS PRN (11:38)
[2024-07-23] MEDS: ARTIFICIAL TEARS OPHTHALMIC DROPS OU PRN (16:50)
[2024-07-23] MEDS: MELATONIN 5 MG TABLETS PO SCH (22:37)
[2024-07-23] MEDS: traZODone HCL 50 MG TABLET (FP) PO SCH (22:38)
[2024-07-23] MEDS: THIAMINE 100 MG TABLET PO SCH (22:53)
[2024-07-24] MEDS: OLANZapine 5 MG TABLET PO SCH (10:41)
[2024-07-24] MEDS: MAG HYDROX/AL HYDROX/SIMETH 30 ML UNIT-DOSE CUP PO PRN (10:47)
[2024-07-24] MEDS: ACETAMINOPHEN 325 MG TABLET (FP) PO PRN (10:47)
[2024-07-24 11:20] LABS: POTASSIUM 4.3 mmol/L (3.5-5.1)
[2024-07-24 11:25] LABS: HEMOGLOBIN 10.5 GM/dL (11.7-16.9); MCH 29.5 pg (25.7-33.7); MCHC 33.8 g/dl (32.0-35.9); MEAN CELL VOLUME 87.3 fl (80-96); PLATELET COUNT 395 10^3/uL (134-434); RBC 3.55 M/mm3 (4.00-5.60); RDW 15.9 % (11.9-15.9); WHITE BLOOD COUNT 7.1 K/mm3 (4.0-10.0)
[2024-07-24 11:29] LABS: ALBUMIN 3.2 g/dl (3.4-5.0); BLOOD UREA NITROGEN 11.4 mg/dL (7-18)
[2024-07-24 11:32] LABS: BILIRUBIN,TOTAL 0.6 mg/dL (0.2-1); TOT PROT 6.2 g/dl (6.4-8.2)
[2024-07-24 11:35] LABS: CREATININE 0.7 mg/dL (0.55-1.3)
[2024-07-24] MEDS: diphenhydrAMINE HCL 25 MG CAPSULE (FP) PO PRN (18:01)
[2024-07-25] MEDS: diazePAM 5 MG TABLET PO SCH (06:08)
[2024-07-25] MEDS: ONDANSETRON *ODT* 4 MG TABLET SL PRN (19:09)
[2024-07-25] MEDS: TRIMETHOBENZAMIDE HCL 200MG/2ML INJ IM PRN (21:38)
[2024-07-25] MEDS: MAGNESIUM HYDROX 2400MG/30ML ORAL SUSPENSION 30 ML CUP PO PRN (23:01)
[2024-07-26 01:57] LABS: URINE APPEARANCE CLEAR; URINE BILIRUBIN NEGATIVE (NEGATIVE); URINE COLOR YELLOW; URINE GLUCOSE (UA) NEGATIVE (NEGATIVE); URINE KETONE NEGATIVE (NEGATIVE); URINE LEUK ESTERASE NEGATIVE (NEGATIVE); URINE NITRITE NEGATIVE (NEGATIVE); URINE PROTEIN NEGATIVE (NEGATIVE)
[2024-07-26] MEDS: diazePAM 5 MG TABLET PO SCH (06:13)
[2024-07-26 20:14] VITALS: TEMP 98
[2024-07-26] MEDS: diazePAM 5 MG TABLET PO ONE (20:15)
[2024-07-27] MEDS: diazePAM 5 MG TABLET PO ONE (05:53)
[2024-07-27 06:20] VITALS: RESP 17
[2024-07-27 08:58] VITALS: BP 104/67; PULSE 83
== END 2024-07-27 10:17 | disposition home or self-care (01) | DRG 897 ==
LOC: YASAS 21:11 → Y3N 22:58
PROVIDERS: ADMIT Allergy & Immunology; ATTEND Surgery
PROC: HZ2ZZZZ Detoxification Services for Substance Abuse Treatment (ICD-10-PCS; principal; 2024-07-22)
DX: F10.230 Alcohol dependence with withdrawal, uncomplicated (principal); F14.20 Cocaine dependence, uncomplicated; F20.0 Paranoid schizophrenia; F12.20 Cannabis dependence, uncomplicated; F17.210 Nicotine dependence, cigarettes, uncomplicated; F31.9 Bipolar disorder, unspecified; F41.9 Anxiety disorder, unspecified; F32.A Depression, unspecified; I10 Essential (primary) hypertension; J44.9 Chronic obstructive pulmonary disease, unspecified; J45.20 Mild intermittent asthma, uncomplicated; K21.9 Gastro-esophageal reflux disease without esophagitis; M54.50 Low back pain, unspecified; G89.29 Other chronic pain; H40.9 Unspecified glaucoma; Z88.0 Allergy status to penicillin; Z88.8 Allergy status to other drugs, medicaments and biological substances
CPT/HCPCS: 36415; 80053; 80305; 81003; 85027; 86780; Q0162

== ENCOUNTER 2024-08-13 16:06 | Inpatient (IN) | payer OTHER ==
[2024-08-13 17:48] VITALS: BMI 21.8
[2024-08-13] MEDS ORDERED: guaiFENesin 600 MG TABLET.ER (FP) PO PRN (19:08)
[2024-08-13] MEDS ORDERED: BENZOCAINE/MENTHOL (CHLORASEPTIC ) LOZENGE MM PRN (19:08)
[2024-08-13] MEDS ORDERED: LOPERAMIDE HCL 2 MG CAPSULE PO PRN (19:08)
[2024-08-13] MEDS ORDERED: BENZONATATE 200 MG CAPSULE PO PRN (19:08)
[2024-08-13] MEDS ORDERED: POLYETHYLENE GLYCOL (HEALTHYLAX) 3350 17 GM PACKET PO PRN (19:08)
[2024-08-13] MEDS ORDERED: P-EPHED 60MG/TRIPROLIDI 2.5MG TABLET PO PRN (19:08)
[2024-08-13] MEDS ORDERED: NICOTINE POLACRILEX 2 MG GUM BUC PRN (19:48)
[2024-08-13] MEDS: FAMOTIDINE 20 MG TABLET PO SCH (20:16)
[2024-08-13] MEDS: TAMSULOSIN HCL 0.4 MG CAP PO SCH (23:26)
[2024-08-13] MEDS: diphenhydrAMINE HCL 25 MG CAPSULE (FP) PO ONE ×2 (23:26→23:27)
[2024-08-13] MEDS: THIAMINE 100 MG TABLET PO SCH (23:26)
[2024-08-13] MEDS: LATANOPROST 0.005% OPHTH SOLN 2.5ML BOTTLE OU SCH (23:27)
[2024-08-13] MEDS: BUDESONIDE/FORMETEROL FUMARATE 160/4.5 mcg INHALER IH SCH (23:27)
[2024-08-13] MEDS: MELATONIN 5 MG TABLETS PO SCH (23:31)
[2024-08-14] MEDS: VITAMINS A AND D TOPICAL OINTMENT TP SCH (08:00)
[2024-08-14] MEDS: LISINOPRIL 5 MG TABLET PO SCH (09:49)
[2024-08-14] MEDS: PRENATAL VITAMINS W/ FOLIC ACID TABLET (FP) PO SCH (09:49)
[2024-08-14] MEDS: NICOTINE 14 MG/24 HOURS TOPICAL PATCH TD SCH (09:50)
[2024-08-14] MEDS: TIMOLOL 0.5% OPHTHALMIC SOL 5 ML BOTTLE OU SCH (09:50)
[2024-08-14] MEDS: FLUTICASONE PROP 0.05% 16 GM NASAL SPRAY NS PRN (09:51)
[2024-08-14] MEDS ORDERED: diazePAM 5 MG TABLET PO PRN (10:18)
[2024-08-14] MEDS: diazePAM 5 MG TABLET PO SCH (11:00)
[2024-08-14] MEDS: diphenhydrAMINE HCL 25 MG CAPSULE (FP) PO ONE (11:58)
[2024-08-14] MEDS: traZODone HCL 50 MG TABLET (FP) PO SCH (23:04)
[2024-08-14] MEDS: OLANZapine 5 MG TABLET PO SCH (23:04)
[2024-08-15] MEDS: ACETAMINOPHEN 325 MG TABLET (FP) PO PRN (17:53)
[2024-08-15] MEDS: ONDANSETRON *ODT* 4 MG TABLET SL PRN (18:08)
[2024-08-15] MEDS: TIMOLOL 0.5% OPHTHALMIC SOL 5 ML BOTTLE OU SCH (22:15)
[2024-08-16] MEDS: diazePAM 5 MG TABLET PO SCH (06:10)
[2024-08-16] MEDS: ALBUTEROL SO4 HFA INHALER IH PRN (10:49)
[2024-08-16] MEDS: hydrOXYzine PAMOATE 25 MG CAPSULE (FP) PO PRN (10:54)
[2024-08-17] MEDS: diazePAM 5 MG TABLET PO SCH (06:34)
[2024-08-17] MEDS: TETRAHYDROZOLINE HCL EYE DROPS OU PRN (19:23)
[2024-08-17] MEDS: MAG HYDROX/AL HYDROX/SIMETH 30 ML UNIT-DOSE CUP PO PRN (21:34)
[2024-08-18] MEDS: diazePAM 5 MG TABLET PO ONE (06:17)
[2024-08-18] MEDS: TIMOLOL 0.5% OPHTHALMIC SOL 5 ML BOTTLE OU SCH (10:00)
[2024-08-18 22:50] VITALS: TEMP 98.4
[2024-08-19] MEDS: MAGNESIUM HYDROX 2400MG/30ML ORAL SUSPENSION 30 ML CUP PO PRN (01:11)
[2024-08-19 06:19] VITALS: BP 101/63; PULSE 72; RESP 17
== END 2024-08-19 11:50 | disposition home or self-care (01) | DRG 897 ==
LOC: YASAS 16:06 → Y6N 19:13
PROVIDERS: ADMIT Allergy & Immunology; ATTEND Surgery
PROC: HZ2ZZZZ Detoxification Services for Substance Abuse Treatment (ICD-10-PCS; principal; 2024-08-13)
DX: F10.230 Alcohol dependence with withdrawal, uncomplicated (principal); F19.282 Other psychoactive substance dependence with psychoactive substance-induced sleep disorder; F14.10 Cocaine abuse, uncomplicated; F12.20 Cannabis dependence, uncomplicated; F17.210 Nicotine dependence, cigarettes, uncomplicated; F25.1 Schizoaffective disorder, depressive type; F19.24 Other psychoactive substance dependence with psychoactive substance-induced mood disorder; H54.61 Unqualified visual loss, right eye, normal vision left eye; H40.2231 Chronic angle-closure glaucoma, bilateral, mild stage; I10 Essential (primary) hypertension; J44.9 Chronic obstructive pulmonary disease, unspecified; J45.20 Mild intermittent asthma, uncomplicated; K21.9 Gastro-esophageal reflux disease without esophagitis; M54.50 Low back pain, unspecified; G89.29 Other chronic pain; N40.0 Benign prostatic hyperplasia without lower urinary tract symptoms; Z99.89 Dependence on other enabling machines and devices; Z88.0 Allergy status to penicillin; Z88.8 Allergy status to other drugs, medicaments and biological substances
CPT/HCPCS: 80305; 80307; Q0162

== ENCOUNTER 2024-09-12 11:34 | Inpatient (IN) | payer OTHER ==
[2024-09-12 11:53] VITALS: BMI 22.1
[2024-09-12] MEDS ORDERED: hydrOXYzine PAMOATE 25 MG CAPSULE (FP) PO PRN (14:13)
[2024-09-12] MEDS ORDERED: BENZOCAINE/MENTHOL (CHLORASEPTIC ) LOZENGE MM PRN (14:13)
[2024-09-12] MEDS ORDERED: NALOXONE (NARCAN) HCL 4 MG/0.1 ML SPRAY NS PRN (14:13)
[2024-09-12] MEDS ORDERED: DICYCLOMINE HCL 10 MG CAPSULE PO PRN (14:13)
[2024-09-12] MEDS ORDERED: LOPERAMIDE HCL 2 MG CAPSULE PO PRN (14:13)
[2024-09-12] MEDS ORDERED: POLYETHYLENE GLYCOL (HEALTHYLAX) 3350 17 GM PACKET PO PRN (14:13)
[2024-09-12] MEDS ORDERED: NICOTINE POLACRILEX 4 MG GUM BUC PRN (14:13)
[2024-09-12] MEDS ORDERED: METHOCARBAMOL 500 MG TABLET PO PRN (14:13)
[2024-09-12] MEDS ORDERED: NALOXONE (NYS OPIOID OVERDOSE PROGRAM) 4 MG/0.1 ML SPRAY NS PRN (14:13)
[2024-09-12] MEDS ORDERED: MAG HYDROX/AL HYDROX/SIMETH 30 ML UNIT-DOSE CUP PO PRN (14:13)
[2024-09-12] MEDS ORDERED: BENZONATATE 200 MG CAPSULE PO PRN (14:13)
[2024-09-12] MEDS ORDERED: MAGNESIUM HYDROX 2400MG/30ML ORAL SUSPENSION 30 ML CUP PO PRN (14:13)
[2024-09-12] MEDS ORDERED: ACETAMINOPHEN 325 MG TABLET (FP) PO PRN (14:13)
[2024-09-12] MEDS ORDERED: BISMUTH SUBSALICYLATE 524 MG/30 ML PO PRN (14:13)
[2024-09-12] MEDS ORDERED: NICOTINE 21 MG/24 HOURS TOPICAL PATCH ONE (15:00)
[2024-09-12] MEDS ORDERED: PRENATAL VITAMINS W/ FOLIC ACID TABLET (FP) PO ONE (15:00)
[2024-09-12] MEDS: PRENATAL VITAMINS W/ FOLIC ACID TABLET (FP) PO SCH (15:06)
[2024-09-12] MEDS: NICOTINE 21 MG/24 HOURS TOPICAL PATCH TD SCH (15:06)
[2024-09-12] MEDS ORDERED: diazePAM 5 MG TABLET PO PRN (15:10)
[2024-09-12] MEDS ORDERED: diphenhydrAMINE HCL 25 MG CAPSULE (FP) PO ONE (15:40)
[2024-09-12] MEDS: diphenhydrAMINE HCL 50 MG CAPSULE PO ONE (15:50)
[2024-09-12] MEDS: TAMSULOSIN HCL 0.4 MG CAP PO SCH ×2 (16:56→17:09)
[2024-09-12] MEDS: TIMOLOL 0.5% OPHTHALMIC SOL 5 ML BOTTLE OU SCH ×2 (16:56→17:08)
[2024-09-12] MEDS: diazePAM 5 MG TABLET PO SCH (16:57)
[2024-09-12] MEDS: FAMOTIDINE 20 MG TABLET PO SCH ×2 (17:06→17:09)
[2024-09-12] MEDS: FLUTICASONE PROP 0.05% 16 GM NASAL SPRAY NS SCH (21:23)
[2024-09-12] MEDS: MELATONIN 5 MG TABLETS PO SCH (22:41)
[2024-09-12] MEDS: THIAMINE 100 MG TABLET PO SCH (22:41)
[2024-09-12] MEDS: LATANOPROST 0.005% OPHTH SOLN 2.5ML BOTTLE OU SCH (22:42)
[2024-09-12] MEDS: BUDESONIDE/FORMETEROL FUMARATE 80/4.5 mcg INHALER IH SCH (22:46)
[2024-09-12] MEDS: guaiFENesin 600 MG TABLET.ER (FP) PO PRN (23:09)
[2024-09-12] MEDS: diphenhydrAMINE HCL 25 MG CAPSULE (FP) PO ONE (23:27)
[2024-09-13] MEDS: LISINOPRIL 5 MG TABLET PO SCH (09:52)
[2024-09-13 17:44] LABS: POTASSIUM 4.1 mmol/L (3.5-5.1)
[2024-09-13 17:49] LABS: HEMATOCRIT 33.1 % (35.4-49); HEMOGLOBIN 10.9 GM/dL (11.7-16.9); MCH 28.2 pg (25.7-33.7); MCHC 32.9 g/dl (32.0-35.9); MEAN CELL VOLUME 85.7 fl (80-96); MEAN PLT VOLUME 10.1 fl (7.5-11.1); PLATELET COUNT 331 10^3/uL (134-434); RBC 3.87 M/mm3 (4.00-5.60); RDW 17.6 % (11.9-15.9); WHITE BLOOD COUNT 5.5 K/mm3 (4.0-10.0)
[2024-09-13 17:53] LABS: CALCIUM 8.6 mg/dL (8.5-10.1)
[2024-09-13 17:54] LABS: ALBUMIN 2.9 g/dl (3.4-5.0); BLOOD UREA NITROGEN 7.5 mg/dL (7-18)
[2024-09-13 17:57] LABS: CREATININE 0.9 mg/dL (0.55-1.3)
[2024-09-13 17:59] LABS: BILIRUBIN,TOTAL 0.6 mg/dL (0.2-1); TOT PROT 5.7 g/dl (6.4-8.2)
[2024-09-13 18:39] LABS: HIV INTERPRETATION NEGATIVE (NEGATIVE)
[2024-09-13] MEDS: ACETAMINOPHEN 325 MG TABLET (FP) PO PRN (18:47)
[2024-09-13] MEDS: ALBUTEROL SO4 HFA INHALER IH PRN (18:55)
[2024-09-13] MEDS: LACTULOSE 20 GM/30 ML UDC (FOR ORAL USE ONLY) PO SCH (22:39)
[2024-09-13] MEDS: traZODone HCL 50 MG TABLET (FP) PO SCH (22:39)
[2024-09-13] MEDS: OLANZapine 5 MG TABLET PO SCH (22:41)
[2024-09-14] MEDS: diazePAM 5 MG TABLET PO SCH (06:38)
[2024-09-14] MEDS: LIDOCAINE 4% PATCH TP SCH (12:00)
[2024-09-14] MEDS: BACLOFEN 10 MG TABLET (FP) PO PRN (17:06)
[2024-09-14] MEDS: guaiFENesin 200 MG/10 ML 10 ML UNIT-DOSE CUPS PO PRN (18:02)
[2024-09-14] MEDS: TIMOLOL 0.5% OPHTHALMIC SOL 5 ML BOTTLE OU ONE (19:09)
[2024-09-14] MEDS: ONDANSETRON *ODT* 4 MG TABLET SL PRN (21:45)
[2024-09-14] MEDS: LIDOCAINE PATCH REMOVAL MC SCH (22:27)
[2024-09-15] MEDS: diazePAM 5 MG TABLET PO SCH (05:30)
[2024-09-15] MEDS: TIMOLOL 0.5% OPHTHALMIC SOL 5 ML BOTTLE OU SCH (09:31)
[2024-09-15] MEDS: METHYL SALICYLATE/MENTHOL 30 GM TUBE TP SCH (14:04)
[2024-09-16] MEDS: diazePAM 5 MG TABLET PO ONE (06:32)
[2024-09-16 09:12] VITALS: BP 129/73; PULSE 80; RESP 16; TEMP 97.5
== END 2024-09-16 11:26 | disposition home or self-care (01) | DRG 897 ==
LOC: YASAS 11:34 → Y3N 14:36
PROVIDERS: ADMIT Allergy & Immunology; ATTEND Surgery
PROC: HZ2ZZZZ Detoxification Services for Substance Abuse Treatment (ICD-10-PCS; principal; 2024-09-12)
DX: F10.230 Alcohol dependence with withdrawal, uncomplicated (principal); E72.20 Disorder of urea cycle metabolism, unspecified; F12.20 Cannabis dependence, uncomplicated; F17.210 Nicotine dependence, cigarettes, uncomplicated; F25.1 Schizoaffective disorder, depressive type; H40.9 Unspecified glaucoma; I10 Essential (primary) hypertension; J44.9 Chronic obstructive pulmonary disease, unspecified; J45.20 Mild intermittent asthma, uncomplicated; N40.0 Benign prostatic hyperplasia without lower urinary tract symptoms; Z88.0 Allergy status to penicillin; Z88.8 Allergy status to other drugs, medicaments and biological substances
CPT/HCPCS: 36415; 80053; 80305; 80307; 82140; 85027; 86780; 86803; 87389; J0475; Q0162

== ENCOUNTER 2024-11-21 09:40 | Inpatient (IN) | payer OTHER ==
[2024-11-21 10:03] VITALS: BMI 24.2
[2024-11-21] MEDS ORDERED: MAG HYDROX/AL HYDROX/SIMETH 30 ML UNIT-DOSE CUP PO PRN (11:20)
[2024-11-21] MEDS ORDERED: LOPERAMIDE HCL 2 MG CAPSULE PO PRN (11:20)
[2024-11-21] MEDS ORDERED: POLYETHYLENE GLYCOL (HEALTHYLAX) 3350 17 GM PACKET PO PRN (11:20)
[2024-11-21] MEDS ORDERED: BENZONATATE 200 MG CAPSULE PO PRN (11:20)
[2024-11-21] MEDS ORDERED: NICOTINE POLACRILEX 4 MG GUM BUC PRN (11:20)
[2024-11-21] MEDS ORDERED: MAGNESIUM HYDROX 2400MG/30ML ORAL SUSPENSION 30 ML CUP PO PRN (11:20)
[2024-11-21] MEDS ORDERED: guaiFENesin 600 MG TABLET.ER (FP) PO PRN (11:20)
[2024-11-21] MEDS ORDERED: BENZOCAINE/MENTHOL (CHLORASEPTIC ) LOZENGE MM PRN (11:20)
[2024-11-21] MEDS ORDERED: NALOXONE (NARCAN) HCL 4 MG/0.1 ML SPRAY NS PRN (11:20)
[2024-11-21] MEDS: LORazepam 1 MG TABLET PO SCH (17:24)
[2024-11-21] MEDS: FAMOTIDINE 20 MG TABLET PO ONE ×2 (19:50→19:57)
[2024-11-21] MEDS: TAMSULOSIN HCL 0.4 MG CAP PO ONE ×2 (19:50→19:57)
[2024-11-21] MEDS: THIAMINE 100 MG TABLET PO SCH (22:26)
[2024-11-21] MEDS: OLANZapine 5 MG TABLET PO ONE (22:27)
[2024-11-21] MEDS: traZODone HCL 50 MG TABLET (FP) PO ONE (22:27)
[2024-11-21] MEDS: diphenhydrAMINE HCL 25 MG CAPSULE (FP) PO PRN (22:27)
[2024-11-21] MEDS: TIMOLOL 0.5% OPHTHALMIC SOL 5 ML BOTTLE OU SCH (22:28)
[2024-11-21] MEDS: LATANOPROST 0.005% OPHTH SOLN 2.5ML BOTTLE OU SCH (22:28)
[2024-11-21] MEDS: BUDESONIDE/FORMETEROL FUMARATE 80/4.5 mcg INHALER IH SCH (22:29)
[2024-11-21] MEDS: MELATONIN 5 MG TABLETS PO SCH (22:31)
[2024-11-22] MEDS: TAMSULOSIN HCL 0.4 MG CAP PO SCH (07:56)
[2024-11-22] MEDS: PRENATAL VITAMINS W/ FOLIC ACID TABLET (FP) PO SCH (09:47)
[2024-11-22] MEDS: FAMOTIDINE 20 MG TABLET PO SCH (09:48)
[2024-11-22] MEDS: LISINOPRIL 5 MG TABLET PO SCH (09:48)
[2024-11-22] MEDS: NICOTINE 21 MG/24 HOURS TOPICAL PATCH TD SCH (09:53)
[2024-11-22 13:57] LABS: HEMATOCRIT 31.7 % (35.4-49); HEMOGLOBIN 10.2 GM/dL (11.7-16.9); MCH 27.6 pg (25.7-33.7); MCHC 32.3 g/dl (32.0-35.9); MEAN CELL VOLUME 85.5 fl (80-96); MEAN PLT VOLUME 11.2 fl (7.5-11.1); PLATELET COUNT 228 10^3/uL (134-434); RDW 18.4 % (11.9-15.9); WHITE BLOOD COUNT 5.9 K/mm3 (4.0-10.0)
[2024-11-22 14:02] LABS: ALBUMIN 3.7 g/dl (3.4-5.0); BLOOD UREA NITROGEN 16.6 mg/dL (7-18)
[2024-11-22 14:03] LABS: BILIRUBIN,TOTAL 0.3 mg/dL (0.2-1)
[2024-11-22 14:04] LABS: CALCIUM 8.9 mg/dL (8.5-10.1)
[2024-11-22 14:05] LABS: CREATININE 0.9 mg/dL (0.55-1.3)
[2024-11-23] MEDS ORDERED: LORazepam 1 MG TABLET PO SCH (05:00)
[2024-11-23] MEDS: ONDANSETRON *ODT* 4 MG TABLET SL PRN (09:43)
[2024-11-23] MEDS: LORazepam 1 MG TABLET PO PRN (10:11)
[2024-11-23] MEDS: FLUTICASONE PROP 0.05% 16 GM NASAL SPRAY NS SCH (12:58)
[2024-11-23] MEDS: VITAMINS A AND D TOPICAL OINTMENT TP PRN (12:59)
[2024-11-23] MEDS: ALBUTEROL SO4 HFA INHALER IH PRN (15:50)
[2024-11-23] MEDS: ARTIFICIAL TEARS OPHTHALMIC DROPS OU PRN (15:56)
[2024-11-24] MEDS ORDERED: LORazepam 0.5 MG TABLET PO PRN
[2024-11-24] MEDS: LORazepam 0.5 MG TABLET PO SCH (06:00)
[2024-11-24] MEDS: NALOXONE (NYS OPIOID OVERDOSE PROGRAM) 4 MG/0.1 ML SPRAY NS SCH (15:47)
[2024-11-24] MEDS: ACETAMINOPHEN 325 MG TABLET (FP) PO PRN (21:46)
[2024-11-25] MEDS: LORazepam 0.5 MG TABLET PO ONE (05:50)
[2024-11-25 06:15] VITALS: TEMP 97.8
[2024-11-25 08:56] VITALS: BP 128/79; PULSE 99; RESP 17
== END 2024-11-25 11:40 | disposition home or self-care (01) | DRG 897 ==
LOC: YASAS 09:40 → Y6N 11:45
PROVIDERS: ADMIT Allergy & Immunology; ATTEND Surgery
PROC: HZ2ZZZZ Detoxification Services for Substance Abuse Treatment (ICD-10-PCS; principal; 2024-11-21)
DX: F10.230 Alcohol dependence with withdrawal, uncomplicated (principal); F14.20 Cocaine dependence, uncomplicated; F20.0 Paranoid schizophrenia; F19.282 Other psychoactive substance dependence with psychoactive substance-induced sleep disorder; Z59.00 Homelessness unspecified; F12.20 Cannabis dependence, uncomplicated; F17.210 Nicotine dependence, cigarettes, uncomplicated; F19.24 Other psychoactive substance dependence with psychoactive substance-induced mood disorder; D64.9 Anemia, unspecified; H40.2231 Chronic angle-closure glaucoma, bilateral, mild stage; H26.9 Unspecified cataract; J44.9 Chronic obstructive pulmonary disease, unspecified; J45.20 Mild intermittent asthma, uncomplicated; K21.9 Gastro-esophageal reflux disease without esophagitis; N40.0 Benign prostatic hyperplasia without lower urinary tract symptoms; Z87.11 Personal history of peptic ulcer disease; Z88.0 Allergy status to penicillin; Z88.8 Allergy status to other drugs, medicaments and biological substances
CPT/HCPCS: 36415; 80053; 80305; 80307; 85027; 86780; 93005; 93010; Q0162

== ENCOUNTER 2024-12-10 09:19 | Inpatient (IN) | payer OTHER ==
[2024-12-10 10:17] VITALS: BMI 23.3
[2024-12-10] MEDS ORDERED: ALBUTEROL SO4 HFA INHALER IH PRN (11:04)
[2024-12-10] MEDS ORDERED: POLYETHYLENE GLYCOL (HEALTHYLAX) 3350 17 GM PACKET PO PRN (11:08)
[2024-12-10] MEDS ORDERED: P-EPHED 60MG/TRIPROLIDI 2.5MG TABLET PO PRN (11:08)
[2024-12-10] MEDS ORDERED: NICOTINE POLACRILEX 2 MG LOZENGE BC PRN (11:08)
[2024-12-10] MEDS ORDERED: ONDANSETRON *ODT* 4 MG TABLET SL PRN (11:08)
[2024-12-10] MEDS ORDERED: LOPERAMIDE HCL 2 MG CAPSULE PO PRN (11:08)
[2024-12-10] MEDS ORDERED: NICOTINE POLACRILEX 2 MG GUM BUC PRN (11:08)
[2024-12-10] MEDS ORDERED: guaiFENesin 600 MG TABLET.ER (FP) PO PRN (11:08)
[2024-12-10] MEDS ORDERED: diazePAM 5 MG TABLET ONE (11:47)
[2024-12-10] MEDS ORDERED: diphenhydrAMINE HCL 25 MG CAPSULE (FP) PO ONE (11:48)
[2024-12-10] MEDS: diazePAM 5 MG TABLET PO SCH (11:51)
[2024-12-10] MEDS: diphenhydrAMINE HCL 25 MG CAPSULE (FP) PO PRN (11:51)
[2024-12-10] MEDS: VITAMINS A AND D TOPICAL OINTMENT TP SCH (13:28)
[2024-12-10] MEDS: TIMOLOL 0.5% OPHTHALMIC SOL 5 ML BOTTLE OU SCH (19:13)
[2024-12-10] MEDS: MELATONIN 5 MG TABLETS PO SCH (22:31)
[2024-12-10] MEDS: THIAMINE 100 MG TABLET PO SCH (22:32)
[2024-12-10] MEDS: BUDESONIDE/FORMETEROL FUMARATE 80/4.5 mcg INHALER IH SCH (22:35)
[2024-12-10] MEDS: LATANOPROST 0.005% OPHTH SOLN 2.5ML BOTTLE OU SCH (22:35)
[2024-12-11] MEDS: diazePAM 5 MG TABLET PO SCH (05:27)
[2024-12-11] MEDS: TAMSULOSIN HCL 0.4 MG CAP PO SCH (08:15)
[2024-12-11] MEDS: LISINOPRIL 5 MG TABLET PO SCH (09:13)
[2024-12-11] MEDS: PRENATAL VITAMINS W/ FOLIC ACID TABLET (FP) PO SCH (09:13)
[2024-12-11] MEDS: FAMOTIDINE 20 MG TABLET PO SCH (09:13)
[2024-12-11] MEDS: ACETAMINOPHEN 325 MG TABLET (FP) PO PRN (17:58)
[2024-12-12] MEDS: MAGNESIUM HYDROX 2400MG/30ML ORAL SUSPENSION 30 ML CUP PO PRN (05:08)
[2024-12-12] MEDS: diazePAM 5 MG TABLET PO SCH (05:08)
[2024-12-12] MEDS: BENZOCAINE/MENTHOL (CHLORASEPTIC ) LOZENGE MM PRN (05:14)
[2024-12-12] MEDS: TETRAHYDROZOLINE HCL EYE DROPS OU PRN (10:59)
[2024-12-12] MEDS: diazePAM 5 MG TABLET PO PRN (11:00)
[2024-12-12] MEDS: NICOTINE 14 MG/24 HOURS TOPICAL PATCH TD SCH (11:57)
[2024-12-12] MEDS: traZODone HCL 50 MG TABLET (FP) PO SCH (22:45)
[2024-12-12] MEDS: MAG HYDROX/AL HYDROX/SIMETH 30 ML UNIT-DOSE CUP PO PRN (22:58)
[2024-12-12] MEDS: BENZONATATE 200 MG CAPSULE PO PRN (22:58)
[2024-12-13] MEDS: diazePAM 5 MG TABLET PO ONE (06:22)
[2024-12-13] MEDS: NALOXONE (NYS OPIOID OVERDOSE PROGRAM) 4 MG/0.1 ML SPRAY NS SCH (08:50)
[2024-12-13 08:51] VITALS: BP 115/70; PULSE 65; RESP 18; TEMP 98
== END 2024-12-13 09:00 | disposition other institution (70) | DRG 897 ==
LOC: YASAS 09:19 → Y6N 11:43
PROVIDERS: ADMIT Allergy & Immunology; ATTEND Allergy & Immunology
PROC: HZ2ZZZZ Detoxification Services for Substance Abuse Treatment (ICD-10-PCS; principal; 2024-12-10)
DX: F10.230 Alcohol dependence with withdrawal, uncomplicated (principal); F14.20 Cocaine dependence, uncomplicated; F19.282 Other psychoactive substance dependence with psychoactive substance-induced sleep disorder; F20.0 Paranoid schizophrenia; F12.20 Cannabis dependence, uncomplicated; F17.210 Nicotine dependence, cigarettes, uncomplicated; I10 Essential (primary) hypertension; J44.9 Chronic obstructive pulmonary disease, unspecified; J45.20 Mild intermittent asthma, uncomplicated; K21.9 Gastro-esophageal reflux disease without esophagitis; M54.50 Low back pain, unspecified; G89.29 Other chronic pain; N40.0 Benign prostatic hyperplasia without lower urinary tract symptoms; H54.61 Unqualified visual loss, right eye, normal vision left eye; Z99.89 Dependence on other enabling machines and devices; Z88.0 Allergy status to penicillin; Z88.8 Allergy status to other drugs, medicaments and biological substances
CPT/HCPCS: 36415; 80307

== ENCOUNTER 2025-01-30 21:47 | Inpatient (IN) | payer OTHER ==
[2025-01-30 22:48] VITALS: BMI 28.0
[2025-01-30] MEDS ORDERED: guaiFENesin 600 MG TABLET.ER (FP) PO PRN (23:35)
[2025-01-30] MEDS ORDERED: POLYETHYLENE GLYCOL (HEALTHYLAX) 3350 17 GM PACKET PO PRN (23:35)
[2025-01-30] MEDS ORDERED: NICOTINE POLACRILEX 4 MG GUM BUC PRN (23:35)
[2025-01-30] MEDS ORDERED: hydrOXYzine PAMOATE 25 MG CAPSULE (FP) PO PRN (23:35)
[2025-01-30] MEDS ORDERED: BENZONATATE 200 MG CAPSULE PO PRN (23:35)
[2025-01-30] MEDS ORDERED: MAGNESIUM HYDROX 2400MG/30ML ORAL SUSPENSION 30 ML CUP PO PRN (23:35)
[2025-01-30] MEDS ORDERED: BENZOCAINE/MENTHOL (CHLORASEPTIC ) LOZENGE MM PRN (23:35)
[2025-01-30] MEDS ORDERED: DICYCLOMINE HCL 10 MG CAPSULE PO PRN (23:35)
[2025-01-30] MEDS ORDERED: BISMUTH SUBSALICYLATE 524 MG/30 ML PO PRN (23:35)
[2025-01-30] MEDS ORDERED: NALOXONE (NARCAN) HCL 4 MG/0.1 ML SPRAY NS PRN (23:35)
[2025-01-30] MEDS ORDERED: MAG HYDROX/AL HYDROX/SIMETH 30 ML UNIT-DOSE CUP PO PRN (23:35)
[2025-01-30] MEDS ORDERED: LORazepam 1 MG TABLET PO PRN (23:44)
[2025-01-31] MEDS: ONDANSETRON *ODT* 4 MG TABLET SL PRN (00:42)
[2025-01-31] MEDS: LORazepam 1 MG TABLET PO PRN (00:44)
[2025-01-31] MEDS ORDERED: ONDANSETRON *ODT* 4 MG TABLET ONE (00:46)
[2025-01-31] MEDS ORDERED: LORazepam 1 MG TABLET ONE (00:47)
[2025-01-31] MEDS ORDERED: LORazepam 1 MG TABLET PO SCH (05:00)
[2025-01-31] MEDS: LORazepam 2 MG TABLET PO SCH ×2 (05:20→06:48)
[2025-01-31] MEDS: ALBUTEROL SO4 HFA INHALER IH PRN (10:38)
[2025-01-31] MEDS: BUDESONIDE/FORMETEROL FUMARATE 80/4.5 mcg INHALER IH SCH (10:38)
[2025-01-31] MEDS: TIMOLOL 0.5% OPHTHALMIC SOL 5 ML BOTTLE OU SCH ×2 (10:39→17:45)
[2025-01-31] MEDS: FAMOTIDINE 20 MG TABLET PO SCH (10:39)
[2025-01-31] MEDS: PRENATAL VITAMINS W/ FOLIC ACID TABLET (FP) PO SCH (10:40)
[2025-01-31] MEDS: LISINOPRIL 5 MG TABLET PO SCH (10:40)
[2025-01-31] MEDS: NICOTINE 21 MG/24 HOURS TOPICAL PATCH TD SCH (10:41)
[2025-01-31] MEDS: HYDROCORTISONE 2.5% TOPICAL CREAM 30 GM TUBE TP SCH (10:50)
[2025-01-31 11:05] LABS: HEMATOCRIT 31.1 % (35.4-49); HEMOGLOBIN 10.3 GM/dL (11.7-16.9); MCH 28.8 pg (25.7-33.7); MCHC 33.1 g/dl (32.0-35.9); MEAN CELL VOLUME 87.1 fl (80-96); MEAN PLT VOLUME 9.8 fl (7.5-11.1); PLATELET COUNT 244 10^3/uL (134-434); RBC 3.58 M/mm3 (4.00-5.60); RDW 17.8 % (11.9-15.9)
[2025-01-31 11:11] LABS: POTASSIUM 3.8 mmol/L (3.5-5.1)
[2025-01-31 11:14] LABS: ALBUMIN 3.6 g/dl (3.4-5.0); BLOOD UREA NITROGEN 6.6 mg/dL (7-18); CALCIUM 8.6 mg/dL (8.5-10.1)
[2025-01-31 11:18] LABS: BILIRUBIN,TOTAL 0.5 mg/dL (0.2-1)
[2025-01-31] MEDS ORDERED: LACTULOSE 20 GM/30 ML UDC (FOR ORAL USE ONLY) PO PRN (14:43)
[2025-01-31 15:12] LABS: HIV INTERPRETATION NEGATIVE (NEGATIVE)
[2025-01-31] MEDS: OXYMETAZOLINE 0.05% NASAL SOLUTION 15 ML BOTTLE NS PRN (15:44)
[2025-01-31] MEDS: diphenhydrAMINE HCL 25 MG CAPSULE (FP) PO ONE (15:44)
[2025-01-31] MEDS: THIAMINE 100 MG TABLET PO SCH (21:43)
[2025-01-31] MEDS: OLANZapine 5 MG TABLET PO SCH (21:43)
[2025-01-31] MEDS: MELATONIN 5 MG TABLETS PO SCH (21:43)
[2025-01-31] MEDS: traZODone HCL 50 MG TABLET (FP) PO SCH (21:43)
[2025-01-31] MEDS: LATANOPROST 0.005% OPHTH SOLN 2.5ML BOTTLE OU SCH (21:52)
[2025-01-31] MEDS: FAMOTIDINE 20 MG TABLET PO ONE (22:10)
[2025-02-01] MEDS ORDERED: LORazepam 0.5 MG TABLET PO PRN
[2025-02-01] MEDS ORDERED: LORazepam 0.5 MG TABLET PO SCH (05:00)
[2025-02-01] MEDS: LORazepam 1 MG TABLET PO SCH (05:47)
[2025-02-01] MEDS: FLU VACCINE (FLULAVAL) PF 45 MCG/0.5 ML SYRINGE 2024-2025 IM ONE (11:34)
[2025-02-01] MEDS: ACETAMINOPHEN 325 MG TABLET (FP) PO PRN (14:10)
[2025-02-01] MEDS: LOPERAMIDE HCL 2 MG CAPSULE PO PRN (14:11)
[2025-02-01] MEDS: diphenhydrAMINE HCL 25 MG CAPSULE (FP) PO ONE (23:26)
[2025-02-01] MEDS: P-EPHED 60MG/TRIPROLIDI 2.5MG TABLET PO PRN (23:26)
[2025-02-02] MEDS ORDERED: LORazepam 0.5 MG TABLET PO PRN
[2025-02-02] MEDS ORDERED: LORazepam 0.5 MG TABLET PO ONE (05:00)
[2025-02-02] MEDS: LORazepam 0.5 MG TABLET PO SCH (05:55)
[2025-02-02] MEDS ORDERED: guaiFENesin 600 MG TABLET.ER (FP) PO PRN (09:59)
[2025-02-02] MEDS: CEFPODOXIME PROXETIL 100 MG TABLET PO SCH (11:39)
[2025-02-02 13:22] VITALS: BP 111/68; PULSE 92; RESP 17; TEMP 98.2
[2025-02-02] MEDS ORDERED: guaiFENesin 200 MG/10 ML 10 ML UNIT-DOSE CUPS PO PRN (14:53)
[2025-02-03] MEDS ORDERED: LORazepam 0.5 MG TABLET PO ONE (05:00)
== END 2025-02-02 16:52 | disposition home or self-care (01) | DRG 897 ==
LOC: YASAS 21:47 → Y3N 23:42
PROVIDERS: ADMIT Allergy & Immunology; ATTEND Allergy & Immunology
PROC: HZ2ZZZZ Detoxification Services for Substance Abuse Treatment (ICD-10-PCS; principal; 2025-01-30)
DX: F10.230 Alcohol dependence with withdrawal, uncomplicated (principal); F13.20 Sedative, hypnotic or anxiolytic dependence, uncomplicated; F20.0 Paranoid schizophrenia; F14.20 Cocaine dependence, uncomplicated; Z59.00 Homelessness unspecified; F12.20 Cannabis dependence, uncomplicated; F17.210 Nicotine dependence, cigarettes, uncomplicated; F32.A Depression, unspecified; F41.9 Anxiety disorder, unspecified; H40.2231 Chronic angle-closure glaucoma, bilateral, mild stage; I10 Essential (primary) hypertension; J44.9 Chronic obstructive pulmonary disease, unspecified; K21.9 Gastro-esophageal reflux disease without esophagitis; M54.50 Low back pain, unspecified; G89.29 Other chronic pain; N40.0 Benign prostatic hyperplasia without lower urinary tract symptoms; R42 Dizziness and giddiness; R79.89 Other specified abnormal findings of blood chemistry; Z99.89 Dependence on other enabling machines and devices; Z88.0 Allergy status to penicillin; Z88.8 Allergy status to other drugs, medicaments and biological substances
CPT/HCPCS: 36415; 80053; 80305; 80307; 82140; 85027; 86780; 87389; 93005; 93010; Q0162

== ENCOUNTER 2025-03-05 16:26 | Inpatient (IN) | payer OTHER ==
[2025-03-05] MEDS: diazePAM 5 MG TABLET PO SCH (17:00)
[2025-03-05 17:03] VITALS: BMI 22.8
[2025-03-05] MEDS ORDERED: ALBUTEROL SO4 HFA INHALER IH PRN (17:53)
[2025-03-05] MEDS ORDERED: ONDANSETRON *ODT* 4 MG TABLET SL PRN (17:55)
[2025-03-05] MEDS ORDERED: P-EPHED 60MG/TRIPROLIDI 2.5MG TABLET PO PRN (17:55)
[2025-03-05] MEDS ORDERED: MAGNESIUM HYDROX 2400MG/30ML ORAL SUSPENSION 30 ML CUP PO PRN (17:55)
[2025-03-05] MEDS ORDERED: guaiFENesin 600 MG TABLET.ER (FP) PO PRN (17:55)
[2025-03-05] MEDS ORDERED: BENZONATATE 200 MG CAPSULE PO PRN (17:55)
[2025-03-05] MEDS ORDERED: LOPERAMIDE HCL 2 MG CAPSULE PO PRN (17:55)
[2025-03-05] MEDS ORDERED: POLYETHYLENE GLYCOL (HEALTHYLAX) 3350 17 GM PACKET PO PRN (17:55)
[2025-03-05] MEDS ORDERED: MAG HYDROX/AL HYDROX/SIMETH 30 ML UNIT-DOSE CUP PO PRN (17:55)
[2025-03-05] MEDS ORDERED: NALOXONE (NARCAN) HCL 4 MG/0.1 ML SPRAY NS PRN (17:55)
[2025-03-05] MEDS ORDERED: BENZOCAINE/MENTHOL (CHLORASEPTIC ) LOZENGE MM PRN (17:55)
[2025-03-05] MEDS ORDERED: diazePAM 5 MG TABLET PO PRN (17:57)
[2025-03-05] MEDS: TIMOLOL 0.5% OPHTHALMIC SOL 5 ML BOTTLE OU SCH (18:00)
[2025-03-05] MEDS ORDERED: ACETAMINOPHEN 325 MG TABLET (FP) ONE (19:43)
[2025-03-05] MEDS ORDERED: VITAMINS A AND D TOPICAL OINTMENT TP PRN (19:44)
[2025-03-05] MEDS ORDERED: AMMONIUM LACTATE 12% LOTION 225 GM BOTTLE TP PRN (19:44)
[2025-03-05] MEDS: ACETAMINOPHEN 325 MG TABLET (FP) PO PRN (19:57)
[2025-03-05] MEDS: MELATONIN 5 MG TABLETS PO SCH (22:39)
[2025-03-05] MEDS: traZODone HCL 50 MG TABLET (FP) PO ONE (22:39)
[2025-03-05] MEDS: diphenhydrAMINE HCL 25 MG CAPSULE (FP) PO ONE (22:39)
[2025-03-05] MEDS: BUDESONIDE/FORMETEROL FUMARATE 80/4.5 mcg INHALER IH SCH (22:40)
[2025-03-05] MEDS: LATANOPROST 0.005% OPHTH SOLN 2.5ML BOTTLE OU SCH (22:41)
[2025-03-05] MEDS: THIAMINE 100 MG TABLET PO SCH (22:41)
[2025-03-06] MEDS: PRENATAL VITAMINS W/ FOLIC ACID TABLET (FP) PO SCH (10:59)
[2025-03-06] MEDS: FAMOTIDINE 20 MG TABLET PO SCH (10:59)
[2025-03-06] MEDS: BACLOFEN 10 MG TABLET (FP) PO PRN (11:00)
[2025-03-06] MEDS: TAMSULOSIN HCL 0.4 MG CAP PO SCH (16:26)
[2025-03-06 17:30] LABS: HEMATOCRIT 32.8 % (40.1-51.0); HEMOGLOBIN 10.6 g/dL (13.7-17.5); MCHC 32.3 g/dl (32.3-36.5); MEAN CELL VOLUME 86.3 fl (79.0-92.2); MEAN PLT VOLUME 11.7 fl (9.4-12.4); PLATELET COUNT 422 x10^3/uL (163-337); RDW 17.9 % (12.2-16.4)
[2025-03-06 17:41] LABS: POTASSIUM 4.2 mmol/L (3.5-5.1)
[2025-03-06 18:11] LABS: ALBUMIN 3.7 g/dl (3.4-5.0); CALCIUM 9.8 mg/dL (8.5-10.1)
[2025-03-06 18:12] LABS: BLOOD UREA NITROGEN 10.1 mg/dL (7-18)
[2025-03-06 18:13] LABS: BILIRUBIN,TOTAL 0.7 mg/dL (0.2-1)
[2025-03-06 18:15] LABS: CREATININE 0.8 mg/dL (0.55-1.3)
[2025-03-06 18:16] LABS: TOT PROT 6.8 g/dl (6.4-8.2)
[2025-03-06] MEDS: OLANZapine 5 MG TABLET PO SCH (22:21)
[2025-03-06] MEDS: traZODone HCL 50 MG TABLET (FP) PO SCH (22:21)
[2025-03-07] MEDS: diazePAM 5 MG TABLET PO SCH (06:20)
[2025-03-07] MEDS: SODIUM CHLORIDE NASAL SPRAY 44 ML BOTTLE NS PRN (17:52)
[2025-03-07] MEDS: FAMOTIDINE 20 MG TABLET PO ONE (18:38)
[2025-03-08] MEDS: diazePAM 5 MG TABLET PO SCH (06:16)
[2025-03-08] MEDS: TETRAHYDROZOLINE HCL EYE DROPS OU PRN (10:07)
[2025-03-09] MEDS: diazePAM 5 MG TABLET PO ONE (05:52)
[2025-03-09 06:21] VITALS: RESP 16
[2025-03-09 09:09] VITALS: BP 102/62; PULSE 92; TEMP 97.1
== END 2025-03-09 11:28 | disposition home or self-care (01) | DRG 897 ==
LOC: YASAS 16:26 → Y3N 19:37
PROVIDERS: ADMIT Allergy & Immunology; ATTEND Allergy & Immunology
PROC: HZ2ZZZZ Detoxification Services for Substance Abuse Treatment (ICD-10-PCS; principal; 2025-03-05)
DX: F10.230 Alcohol dependence with withdrawal, uncomplicated (principal); F14.20 Cocaine dependence, uncomplicated; Z59.00 Homelessness unspecified; F17.210 Nicotine dependence, cigarettes, uncomplicated; F25.1 Schizoaffective disorder, depressive type; F41.9 Anxiety disorder, unspecified; F32.A Depression, unspecified; I10 Essential (primary) hypertension; J44.9 Chronic obstructive pulmonary disease, unspecified; J45.20 Mild intermittent asthma, uncomplicated; K21.9 Gastro-esophageal reflux disease without esophagitis; M54.50 Low back pain, unspecified; G89.29 Other chronic pain; Z88.0 Allergy status to penicillin; Z88.8 Allergy status to other drugs, medicaments and biological substances
CPT/HCPCS: 36415; 80053; 80305; 80307; 85027; J0475

== ENCOUNTER 2025-06-01 10:13 | Inpatient (IN) | payer OTHER ==
[2025-06-01 11:04] VITALS: BMI 23.6
[2025-06-01] MEDS ORDERED: ONDANSETRON *ODT* 4 MG TABLET SL PRN (11:34)
[2025-06-01] MEDS ORDERED: guaiFENesin 600 MG TABLET.ER (FP) PO PRN (11:34)
[2025-06-01] MEDS ORDERED: POLYETHYLENE GLYCOL (HEALTHYLAX) 3350 17 GM PACKET PO PRN (11:34)
[2025-06-01] MEDS ORDERED: LOPERAMIDE HCL 2 MG CAPSULE PO PRN (11:34)
[2025-06-01] MEDS ORDERED: ACETAMINOPHEN 325 MG TABLET (FP) PO PRN (11:34)
[2025-06-01] MEDS ORDERED: NALOXONE (NARCAN) HCL 4 MG/0.1 ML SPRAY NS PRN (11:34)
[2025-06-01] MEDS ORDERED: NICOTINE POLACRILEX 2 MG LOZENGE BC PRN (11:34)
[2025-06-01] MEDS ORDERED: NICOTINE POLACRILEX 2 MG GUM BUC PRN (11:34)
[2025-06-01] MEDS ORDERED: AMMONIUM LACTATE 12% LOTION 225 GM BOTTLE TP PRN (13:07)
[2025-06-01] MEDS ORDERED: BACLOFEN 10 MG TABLET (FP) PO PRN (15:45)
[2025-06-01] MEDS: diphenhydrAMINE HCL 25 MG CAPSULE (FP) PO PRN (18:01)
[2025-06-01] MEDS: ALBUTEROL SO4 HFA INHALER IH PRN (18:03)
[2025-06-01] MEDS: TIMOLOL 0.5% OPHTHALMIC SOL 5 ML BOTTLE OU SCH (18:45)
[2025-06-01] MEDS: ARTIFICIAL TEARS OPHTHALMIC DROPS OU PRN (18:46)
[2025-06-01] MEDS: traZODone HCL 50 MG TABLET (FP) PO SCH (22:37)
[2025-06-01] MEDS: BUDESONIDE/FORMETEROL FUMARATE 80/4.5 mcg INHALER IH SCH (22:37)
[2025-06-01] MEDS: MELATONIN 5 MG TABLETS PO SCH (22:37)
[2025-06-01] MEDS: THIAMINE 100 MG TABLET PO SCH (22:37)
[2025-06-01] MEDS: LATANOPROST 0.005% OPHTH SOLN 2.5ML BOTTLE OU SCH (22:38)
[2025-06-01] MEDS: FLUTICASONE PROP 0.05% 16 GM NASAL SPRAY NS SCH (22:50)
[2025-06-02] MEDS: TAMSULOSIN HCL 0.4 MG CAP PO SCH (07:47)
[2025-06-02] MEDS: PRENATAL VITAMINS W/ FOLIC ACID TABLET (FP) PO SCH (10:54)
[2025-06-02] MEDS: LISINOPRIL 5 MG TABLET PO SCH (10:55)
[2025-06-02 11:00] LABS: MCHC 32.1 g/dl (32.3-36.5); MEAN CELL VOLUME 87.2 fl (79.0-92.2); MEAN PLT VOLUME 11.3 fl (9.4-12.4); RDW 18.8 % (12.2-16.4)
[2025-06-02] MEDS: BENZONATATE 200 MG CAPSULE PO PRN (11:30)
[2025-06-02] MEDS: FAMOTIDINE 20 MG TABLET PO SCH (12:38)
[2025-06-02] MEDS: BENZOCAINE/MENTHOL (CHLORASEPTIC ) LOZENGE MM PRN (12:44)
[2025-06-02 13:35] LABS: ALK PHOS 114.0 U/L (45-117); CO2 29.0 mmol/L (21-32); CREATININE 0.9 mg/dL (0.55-1.3); GLUCOSE,RANDOM 93.0 mg/dL (74-106); SGOT/AST 39.0 U/L (15-37); SGPT/ALT 23.0 U/L (13-61); TOT PROT 6.2 g/dl (6.4-8.2)
[2025-06-02] MEDS: MAGNESIUM HYDROX 2400MG/30ML ORAL SUSPENSION 30 ML CUP PO PRN (19:16)
[2025-06-02] MEDS: MAG HYDROX/AL HYDROX/SIMETH 30 ML UNIT-DOSE CUP PO PRN (20:49)
[2025-06-03] MEDS: diphenhydrAMINE HCL 25 MG CAPSULE (FP) PO PRN (16:09)
[2025-06-04 16:51] VITALS: RESP 16
[2025-06-05 09:34] VITALS: BP 134/84; PULSE 81; TEMP 97.8
== END 2025-06-05 12:47 | disposition other institution (70) | DRG 897 ==
LOC: YASAS 10:13 → Y3N 12:40
PROVIDERS: ADMIT Neuromusculoskeletal Medicine & OMM; ATTEND Allergy & Immunology
PROC: HZ2ZZZZ Detoxification Services for Substance Abuse Treatment (ICD-10-PCS; principal; 2025-06-01)
DX: F10.230 Alcohol dependence with withdrawal, uncomplicated (principal); F14.20 Cocaine dependence, uncomplicated; F20.0 Paranoid schizophrenia; F19.282 Other psychoactive substance dependence with psychoactive substance-induced sleep disorder; Z59.00 Homelessness unspecified; F17.210 Nicotine dependence, cigarettes, uncomplicated; D64.9 Anemia, unspecified; H54.61 Unqualified visual loss, right eye, normal vision left eye; H40.9 Unspecified glaucoma; I10 Essential (primary) hypertension; J44.9 Chronic obstructive pulmonary disease, unspecified; J45.20 Mild intermittent asthma, uncomplicated; K21.9 Gastro-esophageal reflux disease without esophagitis; M54.50 Low back pain, unspecified; G89.29 Other chronic pain; N40.0 Benign prostatic hyperplasia without lower urinary tract symptoms; Z87.11 Personal history of peptic ulcer disease; Z88.0 Allergy status to penicillin; Z88.8 Allergy status to other drugs, medicaments and biological substances
CPT/HCPCS: 36415; 80053; 80305; 80307; 85027; 86780

== ENCOUNTER 2025-06-27 10:10 | Inpatient (IN) | payer OTHER ==
[2025-06-27 10:31] VITALS: BMI 22.1
[2025-06-27] MEDS ORDERED: BENZONATATE 200 MG CAPSULE PO PRN (10:41)
[2025-06-27] MEDS ORDERED: BENZOCAINE/MENTHOL (CHLORASEPTIC ) LOZENGE MM PRN (10:41)
[2025-06-27] MEDS ORDERED: MAGNESIUM HYDROX 2400MG/30ML ORAL SUSPENSION 30 ML CUP PO PRN (10:41)
[2025-06-27] MEDS ORDERED: NALOXONE (NARCAN) HCL 4 MG/0.1 ML SPRAY NS PRN (10:41)
[2025-06-27] MEDS ORDERED: ONDANSETRON *ODT* 4 MG TABLET SL PRN (10:41)
[2025-06-27] MEDS ORDERED: LOPERAMIDE HCL 2 MG CAPSULE PO PRN (10:41)
[2025-06-27] MEDS ORDERED: guaiFENesin 600 MG TABLET.ER (FP) PO PRN (10:41)
[2025-06-27] MEDS ORDERED: POLYETHYLENE GLYCOL (HEALTHYLAX) 3350 17 GM PACKET PO PRN (10:41)
[2025-06-27] MEDS ORDERED: diphenhydrAMINE HCL 25 MG CAPSULE (FP) PO PRN (11:51)
[2025-06-27] MEDS ORDERED: AMMONIUM LACTATE 12% LOTION 225 GM BOTTLE TP PRN (11:53)
[2025-06-27] MEDS: FAMOTIDINE 20 MG TABLET PO SCH (12:03)
[2025-06-27] MEDS: LISINOPRIL 5 MG TABLET PO SCH (12:03)
[2025-06-27] MEDS: TIMOLOL 0.5% OPHTHALMIC SOL 5 ML BOTTLE OU SCH (17:49)
[2025-06-27] MEDS: MELATONIN 5 MG TABLETS PO SCH (22:29)
[2025-06-27] MEDS: traZODone HCL 50 MG TABLET (FP) PO SCH (22:29)
[2025-06-27] MEDS: THIAMINE 100 MG TABLET PO SCH (22:29)
[2025-06-27] MEDS: LATANOPROST 0.005% OPHTH SOLN 2.5ML BOTTLE OU SCH (22:32)
[2025-06-27] MEDS: BUDESONIDE/FORMETEROL FUMARATE 80/4.5 mcg INHALER IH SCH (22:33)
[2025-06-28] MEDS: TAMSULOSIN HCL 0.4 MG CAP PO SCH (09:42)
[2025-06-28] MEDS: PRENATAL VITAMINS W/ FOLIC ACID TABLET (FP) PO SCH (10:25)
[2025-06-28] MEDS: ARTIFICIAL TEARS OPHTHALMIC DROPS OU PRN (10:26)
[2025-06-28] MEDS: FLUTICASONE PROP 0.05% 16 GM NASAL SPRAY NS PRN (10:26)
[2025-06-29] MEDS: MAG HYDROX/AL HYDROX/SIMETH 30 ML UNIT-DOSE CUP PO PRN (22:22)
[2025-06-30] MEDS: ALBUTEROL SO4 HFA INHALER IH PRN (09:54)
[2025-06-30 16:56] VITALS: RESP 16
[2025-07-01] MEDS: ACETAMINOPHEN 325 MG TABLET (FP) PO PRN (07:27)
[2025-07-01 12:28] VITALS: BP 110/72; PULSE 82; TEMP 97.4
== END 2025-07-01 10:55 | disposition home or self-care (01) | DRG 897 ==
LOC: YASAS 10:10 → Y3N 11:33
PROVIDERS: ADMIT Allergy & Immunology; ATTEND Neuromusculoskeletal Medicine & OMM
PROC: HZ2ZZZZ Detoxification Services for Substance Abuse Treatment (ICD-10-PCS; principal; 2025-06-27)
DX: F10.230 Alcohol dependence with withdrawal, uncomplicated (principal); F20.0 Paranoid schizophrenia; F14.20 Cocaine dependence, uncomplicated; Z59.00 Homelessness unspecified; I10 Essential (primary) hypertension; J44.9 Chronic obstructive pulmonary disease, unspecified; K21.9 Gastro-esophageal reflux disease without esophagitis; N40.0 Benign prostatic hyperplasia without lower urinary tract symptoms; H40.9 Unspecified glaucoma; M16.12 Unilateral primary osteoarthritis, left hip; H54.40 Blindness, one eye, unspecified eye; M54.50 Low back pain, unspecified; F41.8 Other specified anxiety disorders; R26.81 Unsteadiness on feet; G89.29 Other chronic pain; Z87.11 Personal history of peptic ulcer disease
CPT/HCPCS: 80305

== ENCOUNTER 2025-07-27 14:56 | Inpatient (IN) | payer OTHER ==
[2025-07-27 15:38] VITALS: BMI 22.1
[2025-07-27] MEDS ORDERED: TETRAHYDROZOLINE HCL EYE DROPS OU PRN (15:58)
[2025-07-27] MEDS ORDERED: POLYETHYLENE GLYCOL (HEALTHYLAX) 3350 17 GM PACKET PO PRN (16:00)
[2025-07-27] MEDS ORDERED: NALOXONE (NARCAN) HCL 4 MG/0.1 ML SPRAY NS PRN (16:00)
[2025-07-27] MEDS ORDERED: NICOTINE POLACRILEX 2 MG GUM BUC PRN (16:00)
[2025-07-27] MEDS ORDERED: NICOTINE POLACRILEX 2 MG LOZENGE BC PRN (16:00)
[2025-07-27] MEDS ORDERED: LOPERAMIDE HCL 2 MG CAPSULE PO PRN (16:00)
[2025-07-27] MEDS ORDERED: MAG HYDROX/AL HYDROX/SIMETH 30 ML UNIT-DOSE CUP PO PRN (16:00)
[2025-07-27] MEDS ORDERED: ACETAMINOPHEN 325 MG TABLET (FP) PO PRN (16:00)
[2025-07-27] MEDS ORDERED: ONDANSETRON *ODT* 4 MG TABLET SL PRN (16:00)
[2025-07-27] MEDS: ALBUTEROL SO4 HFA INHALER IH PRN (18:13)
[2025-07-27] MEDS: THIAMINE 100 MG TABLET PO SCH (22:43)
[2025-07-27] MEDS: LATANOPROST 0.005% OPHTH SOLN 2.5ML BOTTLE OU SCH (22:44)
[2025-07-27] MEDS: BUDESONIDE/FORMETEROL FUMARATE 80/4.5 mcg INHALER IH SCH (22:44)
[2025-07-27] MEDS: MELATONIN 5 MG TABLETS PO SCH (22:45)
[2025-07-27] MEDS: TIMOLOL 0.5% OPHTHALMIC SOL 5 ML BOTTLE OU SCH (22:45)
[2025-07-28] MEDS: BENZONATATE 200 MG CAPSULE PO PRN (02:03)
[2025-07-28] MEDS: SODIUM CHLORIDE NASAL SPRAY 44 ML BOTTLE NS PRN (02:03)
[2025-07-28] MEDS: BENZOCAINE/MENTHOL (CHLORASEPTIC ) LOZENGE MM PRN (02:11)
[2025-07-28 09:49] LABS: MCHC 32.0 g/dl (32.3-36.5); MEAN CELL VOLUME 87.6 fl (79.0-92.2); MEAN PLT VOLUME 12.5 fl (9.4-12.4); RDW 19.9 % (12.2-16.4)
[2025-07-28] MEDS: diphenhydrAMINE HCL 25 MG CAPSULE (FP) PO PRN (10:24)
[2025-07-28] MEDS: TAMSULOSIN HCL 0.4 MG CAP PO SCH (10:24)
[2025-07-28] MEDS: FAMOTIDINE 20 MG TABLET PO SCH (10:24)
[2025-07-28] MEDS: PRENATAL VITAMINS W/ FOLIC ACID TABLET (FP) PO SCH (10:25)
[2025-07-28] MEDS: LISINOPRIL 5 MG TABLET PO SCH (10:25)
[2025-07-28 10:27] LABS: GLUCOSE,RANDOM 107 mg/dL (74-106); TOT PROT 6.6 g/dl (6.4-8.2)
[2025-07-28 10:28] LABS: CO2 28 mmol/L (21-32)
[2025-07-28 10:30] LABS: ALK PHOS 100 U/L (40-150)
[2025-07-28 10:32] LABS: SGOT/AST 23 U/L (5-34); SGPT/ALT 10 U/L (0-55)
[2025-07-28 10:33] LABS: CREATININE 0.82 mg/dL (0.55-1.3)
[2025-07-28] MEDS: MAGNESIUM HYDROX 2400MG/30ML ORAL SUSPENSION 30 ML CUP PO PRN (10:58)
[2025-07-28] MEDS: traZODone HCL 50 MG TABLET (FP) PO SCH (22:34)
[2025-07-29] MEDS: guaiFENesin 600 MG TABLET.ER (FP) PO PRN (11:00)
[2025-07-29] MEDS ORDERED: BENZOCAINE/MENTH/CETYLPYRD CL 1 EACH LOZENGE MM PRN (14:57)
[2025-07-29] MEDS: FLUTICASONE PROP 0.05% 16 GM NASAL SPRAY NS SCH (22:06)
[2025-07-31 06:35] VITALS: TEMP 98.9
[2025-07-31 08:53] VITALS: BP 134/82; PULSE 87; RESP 15
[2025-07-31] MEDS: FAMOTIDINE 20 MG TABLET PO SCH (10:16)
== END 2025-07-31 11:11 | disposition home or self-care (01) | DRG 897 ==
LOC: YASAS 14:56 → Y6N 17:32
PROVIDERS: ADMIT Neuromusculoskeletal Medicine & OMM; ATTEND Allergy & Immunology
PROC: HZ2ZZZZ Detoxification Services for Substance Abuse Treatment (ICD-10-PCS; principal; 2025-07-27)
DX: F19.230 Other psychoactive substance dependence with withdrawal, uncomplicated (principal); F14.20 Cocaine dependence, uncomplicated; F20.0 Paranoid schizophrenia; F10.230 Alcohol dependence with withdrawal, uncomplicated; F17.210 Nicotine dependence, cigarettes, uncomplicated; H54.61 Unqualified visual loss, right eye, normal vision left eye; I10 Essential (primary) hypertension; J44.9 Chronic obstructive pulmonary disease, unspecified; J45.20 Mild intermittent asthma, uncomplicated; K21.9 Gastro-esophageal reflux disease without esophagitis; M54.50 Low back pain, unspecified; G89.29 Other chronic pain; N40.0 Benign prostatic hyperplasia without lower urinary tract symptoms; Z99.89 Dependence on other enabling machines and devices; Z88.8 Allergy status to other drugs, medicaments and biological substances
CPT/HCPCS: 36415; 71045-TC-FY; 80053; 80307; 85027; 86780; 87637-QW